=== PATIENT | male | born 1995 | race Two or more races ===

== ENCOUNTER 2018-05-11 20:30 | Inpatient (IN) | payer OTHER ==
[2018-05-11] VITALS: BP 125/74
[~2018-05-11] VITALS: Ht 165.1 cm; Wt 73.9 kg
--- NOTE | 2018-05-11 20:30 | NUR ---
PT BBRA FROM SNF FOR COFFEE GROUND EMESIS, TEMP OF 101.5, SOB, TACHYCARDIA.. PT AOX0, NON-VERBAL, VENT DEPENDENT, GT PATENT AND INTACT, F/C IN PLACE, PT CONTRACTED, PT ON MONITOR. MD AT BEDSIDE
[2018-05-11 20:56] VITALS: BP 118/35
[2018-05-11 21:06] LABS: BASOPHILS # (AUTO) 0.1 /CMM (0.0-0.2); BASOPHILS % (AUTO) 0.3 % (0.0-2.0); HEMATOCRIT 31 % (39-51); HEMOGLOBIN 10.4 g/dL (13.5-17.5); LYMPHOCYTES # (AUTO) 1.1 /CMM (0.8-4.8); LYMPHOCYTES % (AUTO) 5.9 % (20.0-44.0); MEAN CORPUSCULAR HGB CONC 33 g/dl (31.0-36.0); MEAN CORPUSCULAR VOLUME 91 fL (80-96); MONOCYTES # (AUTO) 1.3 /CMM (0.1-1.30); MONOCYTES % (AUTO) 7.1 % (2.0-12.0); NEUTROPHILS # (AUTO) 14.9 /CMM (1.8-8.9); NEUTROPHILS % (AUTO) 82.7 % (43.0-81.0); PLATELET COUNT (AUTO) 664 /CMM (150-450)
[2018-05-11 21:19] LABS: CALCIUM, SERUM 9.8 mg/dL (8.5-10.1); CARBON DIOXIDE 27 mmol/L (21-32); CHLORIDE 104 mmol/L (98-107); CREATININE 0.7 mg/dL (0.6-1.3); GLUCOSE 103 mg/dL (74-106); POTASSIUM 3.7 mmol/L (3.5-5.1); SODIUM SERUM 142 mmol/L (136-145); UREA NITROGEN, BLOOD 17 mg/dL (7-18)
[2018-05-11 21:30] LABS: ALANINE AMINOTRANSFERASE 60 U/L (12-78); ALBUMIN 3.4 g/dL (3.4-5.0); ALKALINE PHOSPHATASE 111 U/L (46-116); ASPARTATE AMINOTRANSFERASE 31 U/L (15-37); BILIRUBIN,DIRECT 0.1 mg/dL (0.0-0.2); BILIRUBIN,TOTAL 0.3 mg/dL (0.2-1.0); TOTAL PROTEIN, SERUM 8.5 g/dL (6.4-8.2)
--- NOTE | 2018-05-11 21:30 | NUR ---
URINE COLLECTED ADND SENT TO LAB
[2018-05-11 21:34] LABS: BILIRUBIN,URINE Negative (NEGATIVE); BLOOD, URINE Small Ery/uL (NEGATIVE); COLOR,URINE Yellow (YELLOW); KETONES,URINE Negative (NEGATIVE); LEUKOCYTE ESTERASE ,URINE Moderate (NEGATIVE); NITRITE, URINE Positive (NEGATIVE); PH,URINE 8.5 (5.0-8.0); PROTEIN,URINE 30 mg/dl (NEGATIVE); UGLUCOSE Negative (NEGATIVE); UROBILINOGEN,URINE 0.2 EU/dL (0.2)
[2018-05-11 21:35] LABS: APPEARANCE,URINE SLIGHTLY CLOUDY (CLEAR)
[2018-05-11] MEDS ORDERED: CEFTRIAXONE 1GM BAG (ER ONLY) 50 ML IV ONE ×2 (21:41→22:00)
--- NOTE | 2018-05-11 21:48 | NUR ---
DR PASCAL WAS PAGED
[2018-05-11 21:49] LABS: BACTERIA,URINE Many /HPF (None Seen); SQUAMOUS EPITHELIAL CELL,UR Few /HPF (None Seen)
[2018-05-11] MEDS ORDERED: IV NS 0.9% 1,000 ML BAG IV ONE ×2 (22:00→23:00)
--- NOTE | 2018-05-11 22:07 | NUR ---
ADMIT 102 VEENA DX GI BLEED ACCEPTED NAIDA RASCON
[2018-05-11 22:14] LABS: BAND % (MANUAL) 2 % (0.0-5.0); EOSINOPHILS % (MANUAL) 3 % (0-4); LYMPHOCYTES % (MANUAL) 5 % (16-48); MONOCYTES % (MANUAL) 5 % (0-11.0); NEUTROPHILS % (MANUAL) 85 (42-76)
[2018-05-11] MEDS ORDERED: LEVE500T9 GT (22:22)
[2018-05-11] MEDS ORDERED: TIZA4TAB11 GT (22:22)
[2018-05-11] MEDS ORDERED: HYDR-4354 PO (22:22)
[2018-05-11] MEDS ORDERED: BACL10TA GT (22:22)
[2018-05-11] MEDS ORDERED: TOPI50TA GT (22:22)
[2018-05-11] MEDS ORDERED: DOCU50LI PO (22:22)
[2018-05-11] MEDS ORDERED: RIVA10TA GT (22:22)
[2018-05-11] MEDS ORDERED: METO50TA16 GT (22:22)
[2018-05-11] MEDS ORDERED: FERR220S18 GT (22:22)
[2018-05-11] MEDS ORDERED: LACT250L14 GT (22:22)
[2018-05-11] MEDS ORDERED: SENN-168 GT (22:22)
--- NOTE | 2018-05-11 22:48 | NUR ---
REPORT GIVEN TO GILMER CHADWICK FOR TWIN
--- NOTE | 2018-05-11 22:58 | NUR ---
VEENA RN NOTE PATIENT RECEIVED FROM ER IN [facility] OBTUNDED. PATIENT ON BAG, TRANSFERRED TO VENT ON PRESCRIBED VENT SETTINGS. PATIENT HAS 20 G IV IN R FOOT RUNNING IV BOLUS FROM ER. BODY CHECK DONE, PATIENT HAS SACRAL WOUND, SKIN TEAR UNDER THE NECK, SCARS ON THE POSTERIOR SIDES OF BLE, AND REDNESS AT GTUBE AND TRACH SITE. PATIENT BATHED AND CLEANED. PATIENT FEBRILE RECTAL TYLENOL GIVEN PER ORDER, PATIENT VOMMITTED 400 ML OF COFFEE GROUND EMESIS. ZOFRAN AND PROTONIX GIVEN ORDERED. PATIENT HOB HIGH ON ASPIRATION PRECAUTIONS. TOLERATING VENT SETTINGS. RN WILL CONTINUE TO MONITOR.
--- NOTE | 2018-05-11 23:20 | NUR ---
VEENA RN NOTE MD PASCAL PAGED, PATIENT REMAINED FEBRILE AND TACHY IN THE 140'S. COOLING MEASURES TAKEN, ICE PACKS APPLIED.
--- NOTE | 2018-05-11 23:28 | NUR ---
TRANSFERRED TO 1ST FLOOR VIA ACLS PROTOCOL
--- NOTE | 2018-05-11 23:40 | NUR ---
VEENA RN NOTE PAGED [facility], NO RESPONSE PATIENT STILL FEBRILE AND TACKY TEMP 101.8. HR IN THE 140'S.
[2018-05-11 23:52] VITALS: BP_DIAS 35
[2018-05-12] VITALS (54 sets, daily range): BP systolic 97–137; BP diastolic 35–98
--- NOTE | 2018-05-12 | NUR ---
VEENA RN NOTE EPIC NOTIFIED PENDING ORDERS
--- NOTE | 2018-05-12 00:13 | NUR ---
[facility] RN NOTE [facility] ORDERED 500 BOLUS IV NS, 1 GRAM MERREM, AND 1 GRAM VANCO.
[2018-05-12] MEDS ORDERED: PANTOPRAZOLE 40 MG VIAL IV SCH (01:00)
[2018-05-12] MEDS: ACETAMINOPHEN 650 MG/SUPP.RECT RC PRN ×3 (01:47→23:35)
[2018-05-12] MEDS ORDERED: CEFTRIAXONE 1 G in IV D5W 50 ML IV SCH (02:30)
[2018-05-12] MEDS ORDERED: LORAZEPAM INJ 2 MG/ML VIAL IV PRN (02:30)
[2018-05-12] MEDS ORDERED: MORPHINE SULFATE INJ 2 MG/ML DISP.SYRIN IM PRN (02:30)
[2018-05-12] MEDS ORDERED: PANTOPRAZOLE 80 MG in IV NS 0.9% 500 ML IV PRN (03:00)
[2018-05-12] MEDS ORDERED: VANCOMYCIN 1 GM in IV D5W 250 ML IV SCH (03:00)
--- NOTE | 2018-05-12 03:00 | NUR ---
VEENA RN NOTE PATIENT HR RATE JUMPED TO 160'S, PATIENT HAVING MULTIPLE EPISODES OF COFFEE GROUND EMISIS, AT LEAST 300 ML. MD PASCAL CALLED, ORDERED TRANSFER TO ICU, PROTONIX DRIP, AND STAT H/H. REPORT GIVEN TO CLAUDIA FOR TWIN.
--- NOTE | 2018-05-12 03:22 | NUR ---
PT TRANSFERRED TO ICU.
[2018-05-12] MEDS: IV D5/ 0.9% NACL 1,000 ML IV PRN ×4 (03:57→19:56)
[2018-05-12] MEDS ORDERED: PANTOPRAZOLE 40 MG VIAL ONE (04:35)
[2018-05-12] MEDS ORDERED: VANCOMYCIN 1 GM VIAL ONE (04:49)
[2018-05-12 04:52] LABS: BASOPHILS % (AUTO) 0.1 % (0.0-2.0); HEMATOCRIT 31 % (39-51); HEMOGLOBIN 10.2 g/dL (13.5-17.5); LYMPHOCYTES # (AUTO) 0.4 /CMM (0.8-4.8); MEAN CORPUSCULAR HGB CONC 33 g/dl (31.0-36.0); MEAN CORPUSCULAR VOLUME 92 fL (80-96); MONOCYTES # (AUTO) 1.1 /CMM (0.1-1.30); MONOCYTES % (AUTO) 5.8 % (2.0-12.0); NEUTROPHILS # (AUTO) 17.3 /CMM (1.8-8.9); NEUTROPHILS % (AUTO) 92.1 % (43.0-81.0); PLATELET COUNT (AUTO) 588 /CMM (150-450); RED BLOOD CELL COUNT(AUTO) 3.35 MIL/uL (4.5-6.0); WHITE BLOOD COUNT (AUTO) 18.9 K/uL (4.3-11.0)
[2018-05-12 04:59] LABS: CALCIUM, SERUM 9.2 mg/dL (8.5-10.1); CREATININE 0.8 mg/dL (0.6-1.3); MAGNESIUM 2.2 mg/dL (1.8-2.4); POTASSIUM 3.4 mmol/L (3.5-5.1)
[2018-05-12] MEDS ORDERED: MEROPENEM 1 G in IV NS 0.9% 100 ML IV SCH (05:00)
[2018-05-12] MEDS ORDERED: MEROPENEM 1 G VIAL IV ONE (05:35)
[2018-05-12] MEDS: MORPHINE SULFATE INJ 4 MG/ML DISP.SYRIN IV PRN (05:38)
[2018-05-12] MEDS ORDERED: POTASSIUM CHLORIDE 10 MEQ/50 ML PREMIXED IVPB FOR PERIPHERAL LINE IV ONE (06:00)
--- NOTE | 2018-05-12 06:01 | NUR ---
MD PASCAL AT BEDSIDE, AWARE OF AM LAB RESULTS, K LEVEL 3.4, WITH NEW ORDER TO REPLACE POTASSIUM 20 MEQ IV X1 .
[2018-05-12] MEDS ORDERED: LEVETIRACETAM (500MG) 500 MG in IV NS 0.9% 100 ML IV SCH (06:30)
--- NOTE | 2018-05-12 07:15 | NUR ---
RN INITIAL NOTES: Rec'd pt on bed, awake, not in any distress. On MV via trach, sating at 98%. On telemonitor, ST 128 bpm. Has GT connected to LIS w/ coffee ground gastric output. Has 2 IV lines, R ft G20 & L ft G22 w/ D5NS x 100 cc/hr & Protonix Drip 8mg infusing well, no s/sx of infection/infiltration noted. Has FC, no UOP noted. Cooling blanket on d/t high temp. Safety precaution in. Bed in lowest & locked pos. Will endorse to PM RN for TWIN.
[2018-05-12] MEDS: POTASSIUM CL. PREMIX PERIPHER. 50 ML IV SCH ×2 (07:36→08:37)
--- NOTE | 2018-05-12 07:46 | NUR ---
Clarified w/ Dr. Ybarra re: Fany. Per , to DC IV Abx.
[2018-05-12] MEDS ORDERED: FEE PK DOSING 1 MIN EA MC ONE (07:52)
--- NOTE | 2018-05-12 08:04 | NUR ---
Temp 101.3, referred to Dr. Ybarra w/ orders to do sputum cx.
--- NOTE | 2018-05-12 09:17 | NUR ---
Pt seen & examined by Dr. Warren w/ orders to give STAT of 1L NS [id number] then increase current IVF to 200 cc/hr after giving the NS.
[2018-05-12] MEDS ORDERED: IV NS 0.9% 1,000 ML BAG IV ONE (09:30)
[2018-05-12] MEDS: LEVETIRACETAM (500MG) 500 MG in IV NS 0.9% 100 ML IV SCH ×2 (09:44→19:56)
[2018-05-12] MEDS ORDERED: IV NS 0.9% 1,000 ML IV PRN (10:00)
[2018-05-12 11:43] LABS: ABG BASE EXCESS -1.1 mmol/L; ABG OXYGEN SATURATION 96.9 % (92.0-98.5); ABG PCO2 30.6 mmHg (35.0-45.0); ABG PH 7.468 (7.350-7.450); COHb 0.2 % (0.5-1.5); MetHb 0.7 % (0.0-1.5); PEEP,BG 5 cm H2O; SITE, ABG Right Brachial; VT, ABG 550 mL
--- NOTE | 2018-05-12 12:00 | NUR ---
KELSEA relayed to Dr. Warren w/ orders to decrease TV by 50 cc.
--- NOTE | 2018-05-12 13:00 | NUR ---
Dr. Calle seen & examined the pt. updated about pt status. Per MD, may start GTF per RD recommendation. Monitor for any gastric residuals.
[2018-05-12] MEDS: MEROPENEM 1 G in IV NS 0.9% 100 ML IV SCH ×2 (13:14→21:00)
--- NOTE | 2018-05-12 14:04 | NUR ---
Jose POLITICAL ANTHROPOLOGIST updated about pt status. Pt is possible for skin scabies per POLITICAL ANTHROPOLOGIST.
[2018-05-12] MEDS ORDERED: IVERMECTIN 3 MG TABLET PO ONE (14:30)
[2018-05-12] MEDS ORDERED: PERMETHRIN 5% CRM 60 GM TUBE TP ONE (14:30)
--- NOTE | 2018-05-12 15:30 | NUR ---
Dr. Warren updated about urine output, per MD infuse total 2L of D5NS at 200cc/hr then decrease rate to 150cc/hr after 2L infusion.
[2018-05-12] MEDS: ACETAMINOPHEN 325 MG TABLET PO PRN (16:18)
[2018-05-12] MEDS: PANTOPRAZOLE 40 MG VIAL IV SCH (16:18)
[2018-05-12] MEDS: VANCOMYCIN 1 GM in IV D5W 250 ML IV SCH (16:18)
[2018-05-12] MEDS: DAKINS QUARTER STRENGTH (0.125%) 480 ML BOTTLE TOP SCH ×2 (17:30→21:30)
--- NOTE | 2018-05-12 18:57 | NUR ---
RN CLOSING NOTES: Pt still has high fever T 100. Pt tolerated MV settings (new TV 500) via trach, sating at 98%. On telemonitor, still ST. GT clamped at this time, to start GTF. 2 IV lines, R ft G20 & L ft G22 w/ D5NS x 200 cc/hr infusing well w/ no s/sx of infection/infiltration noted. FC kept patent & intact. Cooling blanket kept on d/t high temp. Safety precaution kept in place at all times. Bed in lowest & locked pos. Isolation prec observed for poss scabies. Endorsed to PM RN re: 2nd bag of D5NS x 200cc/hr then decrease rate to 150cc/hr, to start GTF, & give bath 8 hours s/p Elimite cream application.
--- NOTE | 2018-05-12 19:30 | NUR ---
EPIC SPECIALIST RCD PT W/DX GI BLEED, SEPSIS; PT IS FULL CODE. ISOLATION PRECAUTIONS TO R/O SCABIES WITH ELIMITE CREME APPLIED AT 1350 AND BATH TO BE DONE AT 2330. PT IS OBTUNDED WITHDRAWS FROM PAIN. PORTEX 8 W/VENT SETTINGS AC 12 500 40% +5; PT HAS THICK WHITE SECRETIONS. RENDERED ORAL CARE. ST ON MONITOR W/TEMP 100.9; TYLENOL PREVIOUSLY GIVEN. G TUBE CLAMPED PER DAY SHIFT PT WAS HAVING HIGH RESIDUALS NO RESIDUAL AT THIS TIME WILL RESTART TUBE FEEDING ONCE IT IS AVAILABLE. ORTIZ CATH WITH NO URINE OUTPUT AT THIS TIME. MULTIPLE SKIN ISSUES; DRESSINGS C/D/I; REMOVED MEPILEX FROM SACRUM. RIGHT FOOT 20 G W/D5NS @ 200 ML/HR TO RUN x2 LITERS FOLLOWED BY D5NS@ 150 ML/HR; LEFT FOOT 22 G W/NS @ TKO RUNNING; ORDER PLACED AT THIS TIME IT WAS NOT DONE PRIOR TO ADMINISTERING IT. CONTINUE TO MONITOR.
[2018-05-12] MEDS ORDERED: IV NS 0.9% 250 ML IV PRN (20:00)
[2018-05-12] MEDS: JEVITY 1.2 CAL 1,000 ML BOTTLE GT PRN (21:00)
--- NOTE | 2018-05-12 21:30 | NUR ---
SENIOR RESEARCH ANALYST RENDERED WOUND TREATMENT AT THIS TIME. REMOVED MEPILEX FROM SACRAL AREA; APPLIED ABD PADS. APPLIED MEPILEX TO BL ELBOWS; OFFLOADED. APPLIED XEROFORM AND MEPILEX TO LEFT NECK. NOT PREVIOUSLY DONE.
[2018-05-13] VITALS (27 sets, daily range): BP systolic 106–147; BP diastolic 44–126
[2018-05-13] MEDS: MORPHINE SULFATE INJ 4 MG/ML DISP.SYRIN IV PRN (00:26)
--- NOTE | 2018-05-13 00:30 | NUR ---
OUTPATIENT SERVICES DIRECTOR COMPLETE BED BATH RENDERED TO PT; PT GIVEN TYLENOL SUPP FOR TEMP 100.3; PT ALSO GIVEN MORPHINE 2 MG IV FOR GRIMACING AND INCREASED HR DURING BED BATH. CONTINUE TO MONITOR.
--- NOTE | 2018-05-13 01:00 | NUR ---
MACHINE WELDER 2 L D5NS @ 200 ML/HR ADMINISTERED; RATE AT 150 ML/HR AT THIS TIME.
[2018-05-13] MEDS: IV D5/ 0.9% NACL 1,000 ML IV PRN ×3 (01:01→16:50)
--- NOTE | 2018-05-13 02:44 | NUR ---
JOINTER MACHINE OPERATOR PT RESTING COMFORTABLY HR NSR 90s; CORE TEMP 98.4. CONTINUE TO MONITOR.
[2018-05-13] MEDS: VANCOMYCIN 1 GM in IV D5W 250 ML IV SCH ×2 (04:00→18:08)
[2018-05-13 04:34] LABS: CALCIUM, SERUM 8.3 mg/dL (8.5-10.1); CREATININE 0.5 mg/dL (0.6-1.3)
[2018-05-13] MEDS: MEROPENEM 1 G in IV NS 0.9% 100 ML IV SCH ×3 (05:00→20:04)
--- NOTE | 2018-05-13 07:47 | NUR ---
FEATHER SAWYER INITIAL NOTES: RECEIVED PT FROM NIGHTSHIFT RN IN STABLE CONDITION. PT IS OBTUNDED, OPENS EYES SPONTANEOUSLY AND IS RESPONSIVE TO PAIN FUL STIMULI. NO SOB OR ACUTE SIGNS OF DISTRESS NOTED. PT TRACH AND VENT DEPENDENT. VENT SETTINGS CHECKED FOR ACCURACY. PT TOLERATING SETTINGS WELL (PORTEX 7, AC 12BPM, TV 500, FI02 40%, PEEP 5). ORTIZ CATHETER NOTED TO BE PATENT AND INTACT. NO OUTPUT NOTED AT THIS TIME. IVS NOTED TO PT'S RIGHT AND LEFT FOOT. LEFT FOOT 22G CURRENTLY INFUSING MERREM, AND RIGHT FOOT 20G CURRENTLY INFUSING D2 NS @ 150ML/HR. PT TOLERATING INFUSION WELL. NO REDNESS OR SIGNS OF INFILTRATION NOTED. GTUBE NOTED. PLACEMENT VERIFIED VIA AUSCULTATION. LESS THAN 5ML OF RESIDUALS ASPIRATED AT THIS TIME. TUB FEEDING RATE INCREASED TO 25 CC/HR. PT TOLERATING FEEDINGS WELL. NO REPORTS OF EMESIS FROM NIGHTSHIFT RN. WOUND DRESSINGS NOTED TO BE C/D/I. PT CURRENT SINUS TACH ON THE MONITOR WITH A HR OF 109. CURRENT TEMP OF 98.9 F. BED IN LOW LOCKED POSITION, SIDE RAILS UP X2, CALL LIGHT WITHIN REACH, SEIZURE PRECAUTIONS INITIATED, ISOLATION PRECAUTION MAINTAINED. WILL CONTINUE TO MONITOR
--- NOTE | 2018-05-13 08:04 | NUR ---
RT PATIENT REC'D TRACHED ON [facility] VENT WITH ORDERED SETTINGS ANIKA WELL. VENT ALARMS CHECKED + AUDIBLE. CUFF PRESSURE CHECKED DOCUMENT SCANNER. PATIENT SUCTIONED WITH MOD TOSINT OF PENELOPE SEMITHICK SECRETIONS. B/S DIM COARSE. [facility]. VENT PLUGGED ONTO RED OUTLET. Addendum: 05/13/18 at 1052 by WM HENDERSON RT Amended: Links added.
[2018-05-13] MEDS: LEVETIRACETAM (500MG) 500 MG in IV NS 0.9% 100 ML IV SCH ×2 (08:05→20:04)
[2018-05-13] MEDS: LORATADINE 10 MG TABLET PO SCH (08:05)
[2018-05-13] MEDS: PANTOPRAZOLE 40 MG VIAL IV SCH ×2 (08:10→16:54)
[2018-05-13] MEDS: DAKINS QUARTER STRENGTH (0.125%) 480 ML BOTTLE TOP SCH ×2 (08:30→20:05)
[2018-05-13 09:53] LABS: BASOPHILS % (AUTO) 0.2 % (0.0-2.0); EOSINOPHILS % (AUTO) 7.2 % (0.0-6.0); HEMATOCRIT 22 % (39-51); HEMOGLOBIN 7.2 g/dL (13.5-17.5); LYMPHOCYTES % (AUTO) 8.3 % (20.0-44.0); MEAN CORPUSCULAR HGB CONC 33 g/dl (31.0-36.0); MEAN CORPUSCULAR VOLUME 93 fL (80-96); MONOCYTES # (AUTO) 0.8 /CMM (0.1-1.30); MONOCYTES % (AUTO) 7.1 % (2.0-12.0); NEUTROPHILS # (AUTO) 8.9 /CMM (1.8-8.9); NEUTROPHILS % (AUTO) 77.2 % (43.0-81.0); PLATELET COUNT (AUTO) 406 /CMM (150-450); RED BLOOD CELL COUNT(AUTO) 2.37 MIL/uL (4.5-6.0); WHITE BLOOD COUNT (AUTO) 11.5 K/uL (4.3-11.0)
--- NOTE | 2018-05-13 10:21 | NUR ---
WOUND CARE CONSULT WOUND CARE RECEIVED CONSULT FOR SACRAL WOUND. WOUND CARE WILL DEFER CONSULT AND ALL TREATMENT PLANS TO PLASTIC SURGICAL TEAM WELL DPM DR SOLOMON WHO ARE ALL FOLLOWING THIS PATIENT. PATIENT WITH EBONI AT 7, ALL PRESSURE ULCER PREVENTION MEASURES ARE NOTED TO BE IN PLACE. WILL SEE PRN.
--- NOTE | 2018-05-13 11:03 | NUR ---
AERIAL PHOTOGRAPHER NOTES: DR HAMMOND ORDERS DR. HAMMOND MADE AWARE OF PT'S H/H. VERBAL ORDER OBTAINED BY MD TO REPEAT H/H Q8HRS AND TRANSFUSE 1UNIT PRBC IF HGG <7 AND TWO UNITS IN HGB IS <6
[2018-05-13] MEDS: POTASSIUM CHLORIDE 20 MEQ POWDER PACKET GT SCH ×3 (11:33→12:45)
[2018-05-13] MEDS: Z GUARD REMEDY 2 OZ OINT TP SCH (11:33)
--- NOTE | 2018-05-13 12:30 | NUR ---
SPECIAL EDUCATION AIDE NOTES: MD ROUNDING (DR. PASCAL) DR PASCAL AT BEDSIDE AND MADE AWARE OF PT'S CONDITION. PER MD "PT CAN BE DOWNGRADED IF APPROVED BY DR HAMMOND". DR HAMMOND MADE AWARE AND STATES THAT PT MAY BE DOWNGRADED TO V[facility]NA ONCE H/H IS OBTAINED AT 1300. WILL CARRY OUT ORDERS
[2018-05-13 13:19] LABS: HEMOGLOBIN 7.8 g/dL (13.5-17.5)
[2018-05-13 16:41] LABS: HEMOGLOBIN 8.3 g/dL (13.5-17.5)
--- NOTE | 2018-05-13 17:45 | NUR ---
PT TRANSFERRED TO [facility] ROOM 108 VIA ACLS TRANSPORT. ALL NEED MET DURING SHIFT AND ORDERS CARRIED OUT ACCORDINGLY. ALL DUE MEDS GIVEN. WOUND AND SKIN CARE RENDERED ORDERED. PT REPOSITIONED AND TURNED Q2 HRS. IVS REMAIN PATENT AND INTACT. PT TOLERATED GTUBE FEEDINGS WELL DURING SHIFT. ENDORSE TO VEENA FARRUKH HARPER FOR TWIN AND ADMINISTRATION OF 1700 VANCO THROUGHOUT LEVEL WAS NOT YET RESULTED
--- NOTE | 2018-05-13 19:07 | NUR ---
VEENA RN NOTES RECEIVED PATIENT FROM ICU. BP 113/60, HR 109, SPO2 100% ON VENT, RR 30, TEMP 99.1. VENT TUBES PATENT AND FUNCTIONING EXPECTED. IV INTACT, PATENT W/ NO S/S OF INFECTION. G-TUBE INTACT AND PATENT. IV VANCOMYCIN RUNNING. PATIENT REPOSITIONED AND HEELS FLOATED. ORTIZ IN PLACE AND DRAINING URINE. PATIENT CLEAN AND DRY, ALL SAFETY MEASURES IN PLACE. CARE HANDED OFF TO NIGHTSHIFT RN.
--- NOTE | 2018-05-13 19:35 | NUR ---
PATIENT RECEIVED ON AC @ 40%. PORTEX [address] AMBU BAG/BACK UP TRACH @ BEDSIDE. SX DONE, MODERATE THICK WHITE YELLOW SECRETIONS NOTED. ALARMS ON AND AUDIBLE. VENT PLUGGED INTO RED OUTLET. PATIENT STABLE AT THIS TIME. WILL MONITOR T/O SHIFT. Addendum: 05/13/18 at 1936 by JAIRO KOO RT Amended: Links added.
[2018-05-13] MEDS: MUPIROCIN OINT 2% 22 GM TUBE SCH (20:05)
[2018-05-13] MEDS: ACETAMINOPHEN 325 MG TABLET PO PRN (20:06)
[2018-05-13] MEDS: LORAZEPAM INJ 2 MG/ML VIAL IV PRN (20:11)
--- NOTE | 2018-05-13 20:11 | NUR ---
RN NOTE AGITATION NOTED, INCREASED RESPIRATIONS, ADMINISTERED MEDICATION ORDERED
[2018-05-13] MEDS ORDERED: MUPIROCIN OINT 2% 22 GM TUBE SCH (21:00)
[2018-05-14] VITALS: BP 104/55
[2018-05-14] MEDS: ONDANSETRON HCL/PF 4 MG/2 ML VIAL IV PRN (01:43)
[2018-05-14] MEDS: LORAZEPAM INJ 2 MG/ML VIAL IV PRN (01:52)
--- NOTE | 2018-05-14 01:52 | NUR ---
RN NOTE PATIENT IS AGITATED, MEDICATION ADMINISTERED ORDERED
[2018-05-14 04:00] VITALS: BP 119/58
[2018-05-14] MEDS: VANCOMYCIN 1 GM in IV D5W 250 ML IV SCH (04:00)
[2018-05-14] MEDS: MEROPENEM 1 G in IV NS 0.9% 100 ML IV SCH ×2 (04:00→13:16)
[2018-05-14] MEDS: IV D5/ 0.9% NACL 1,000 ML IV PRN (04:19)
--- NOTE | 2018-05-14 06:27 | NUR ---
RN NOTE PATIENT RESTED WELL AT NIGHT, NO AGITATION OR DISCOMFORT NOTED AT THIS TIME, AFEBRILE, TOLERATES MECH. VENTILATOR SETTING WELL, TURNED AND REPOSITION EVERY 2 HOURS, WOUND CARE PROVIDED ORDERED, NO RESPIRATORY DISTRESS NOTED, SEIZURE PRECAUTIONS TAKEN, NO BLEEDING NOTED, OBTUNDED, TOLERATES IV FLUIDS WELL, WILL PROVIDE BEDSIDE REPORT TO AM NURSE
[2018-05-14 07:28] LABS: BASOPHILS % (AUTO) 0.4 % (0.0-2.0); EOSINOPHILS % (AUTO) 15.6 % (0.0-6.0); HEMATOCRIT 25 % (39-51); HEMOGLOBIN 8.2 g/dL (13.5-17.5); LYMPHOCYTES # (AUTO) 1.1 /CMM (0.8-4.8); LYMPHOCYTES % (AUTO) 10.4 % (20.0-44.0); MEAN CORPUSCULAR HGB CONC 33 g/dl (31.0-36.0); MEAN CORPUSCULAR VOLUME 95 fL (80-96); MONOCYTES # (AUTO) 0.8 /CMM (0.1-1.30); MONOCYTES % (AUTO) 7.6 % (2.0-12.0); PLATELET COUNT (AUTO) 467 /CMM (150-450); RED BLOOD CELL COUNT(AUTO) 2.66 MIL/uL (4.5-6.0); WHITE BLOOD COUNT (AUTO) 10.7 K/uL (4.3-11.0)
[2018-05-14 07:33] LABS: CALCIUM, SERUM 8.4 mg/dL (8.5-10.1); CREATININE 0.5 mg/dL (0.6-1.3); MAGNESIUM 1.9 mg/dL (1.8-2.4); POTASSIUM 3.1 mmol/L (3.5-5.1)
[2018-05-14 08:00] VITALS: BP 124/68
--- NOTE | 2018-05-14 08:15 | NUR ---
VEENA RN SHIFT NOTE RECEIVED PATIENT IN BED EYES OPEN NOT FOLLOW ANY COMMANDS, OBTUNED WITH TRACH TO VENT SETTING ORDERED, AMBUBAG IN PLACE, PATIENT HAS FC TO GRAVITY TO YELLOW CLEAR URINE, PATIENT ON TELE MONITOR 108 SINUS TACHY, GTUBE FEEDING AT 40CC PER HOUR, HOB ELEVATED, IV ON RT AND LFT FOOT IN PLACE FLUSHED WELL, IVF ORDERED, BED LOCKED AND LOW POSITION, ISOLATION PER HOSPITAL PROTOCAL
[2018-05-14] MEDS ORDERED: LEVETIRACETAM (250 MG) 250 MG TABLET PO SCH (09:00)
[2018-05-14] MEDS: PANTOPRAZOLE 40 MG VIAL IV SCH ×2 (09:03→16:40)
[2018-05-14] MEDS: LORATADINE 10 MG TABLET PO SCH (09:03)
[2018-05-14] MEDS: DAKINS QUARTER STRENGTH (0.125%) 480 ML BOTTLE TOP SCH ×2 (09:05→20:46)
[2018-05-14] MEDS: MUPIROCIN OINT 2% 22 GM TUBE SCH ×2 (09:05→20:49)
[2018-05-14] MEDS: Z GUARD REMEDY 2 OZ OINT TP SCH (09:05)
[2018-05-14] MEDS ORDERED: POTASSIUM CHLORIDE 20 MEQ POWDER PACKET GT SCH (10:00)
--- NOTE | 2018-05-14 10:06 | NUR ---
RN NOTE: CLARIFIED WITH DR. HAMMOND RE: THE DAILY ORDERS FOR ABG AND CHEST X-RAY. PER MENDY RASCON ALL ORDERS, NOTED AND CARRIED OUT. PRIMARY NURSE MADE AWARE.
[2018-05-14] MEDS ORDERED: HYDROMORPHONE INJ 0.5 MG/0.5 ML SYRINGE IV PRN (10:30)
[2018-05-14] MEDS ORDERED: LEVETIRACETAM SOL (5 ML) 100 MG/ML UDC GT SCH (10:30)
--- NOTE | 2018-05-14 11:05 | NUR ---
RN NOTE DR HAMMOND , PATIENT IS EDEMATOUS, DECREASE IV FLUIDS 50ML HOUR, HEMOGLOBIN 8.2 CONTINUE TO MONITOR, D/C IF FLUIDS TOMORROW 05/15
[2018-05-14] MEDS: BACLOFEN (10 MG) 10 MG TABLET GT SCH ×2 (11:18→17:03)
[2018-05-14] MEDS: TOPIRAMATE 25 MG TABLET GT SCH ×2 (11:19→20:45)
[2018-05-14 12:00] VITALS: BP 116/61
--- NOTE | 2018-05-14 12:36 | NUR ---
RN VEENA NOTE MIDLINE DR TRINIDAD APPROVED, NURSING POSITION DESCRIPTION MANAGER APPROVED.
[2018-05-14] MEDS ORDERED: VANCOMYCIN 1 GM in IV D5W 250 ML IV SCH (13:00)
[2018-05-14] MEDS: JEVITY 1.2 CAL 1,000 ML BOTTLE GT PRN (13:20)
--- NOTE | 2018-05-14 13:50 | NUR ---
fely rn note rt upper arm midline inserted by Picc line nurse ajay
[2018-05-14] MEDS: SOD FERRIC GLUC 125 MG in IV NS 0.9% 100 ML IV SCH (15:06)
--- NOTE | 2018-05-14 15:47 | NUR ---
LITHOGRAPHIC PLATE MAKER NOTE ROUNDS MADE, RESTING COMFORTABLE, ASSISTED TO URINAL, URINATED WELL, MONITOR PATIENT Addendum: 05/14/18 at 1548 by SCOTTIE SANFORD RN UA COLLECTED ORDERED Addendum: 05/14/18 at 1549 by SCOTTIE SANFORD RN WRONG PATIENT
--- NOTE | 2018-05-14 15:50 | NUR ---
VEENA RN NOTE IV ON CONTINUED ATB, INCREASED TUBE FEEDING TO 45ML/HR, MAX DOSE 65. WILL CONTINUE TO MONITOR, NO RESIDUAL NOTED
[2018-05-14 16:00] VITALS: BP 111/59
[2018-05-14] MEDS: DOCUSATE SODIUM LIQ 100 MG/10 ML UDC PO SCH (16:39)
[2018-05-14] MEDS: PROSOURCE / PROSTAT (PYXIS) 30 ML UDC GT SCH (16:40)
[2018-05-14] MEDS: METOPROLOL TARTRATE 25 MG TABLET GT SCH (16:40)
[2018-05-14] MEDS: TIZANIDINE HCL 4 MG TABLET GT SCH (16:41)
--- NOTE | 2018-05-14 18:47 | NUR ---
VEENA RN NOTE CONT ON G TUBE FEEDING ORDERED, ON IVF ORDERED ,RT UPPER ARM MID LINE IN PLACE, BED IN LOWEST AND LOCKED POSITION, FAMILY AT BEDSIDE , CONTINUE TO MONITOR
[2018-05-14 20:00] VITALS: BP 107/60
[2018-05-14] MEDS: LEVETIRACETAM SOL (5 ML) 100 MG/ML UDC GT SCH (20:45)
[2018-05-14] MEDS: DOXYCYCLINE HYCLATE (100 MG) 100 MG TABLET PO SCH (20:45)
[2018-05-14] MEDS: HYDROCODONE/APAP 10/325MG 1 EA TABLET GT PRN (20:45)
[2018-05-14] MEDS: CEFTAZIDIME 1 G in IV D5W 50 ML IV SCH (20:50)
[2018-05-14] MEDS: SENNOSIDES 8.6 MG TABLET GT SCH (21:46)
[2018-05-15] VITALS (7 sets, daily range): BP systolic 116–140; BP diastolic 68–101
[2018-05-15] MEDS: BACLOFEN (10 MG) 10 MG TABLET GT SCH ×4 (00:21→17:04)
[2018-05-15] MEDS: CEFTAZIDIME 1 G in IV D5W 50 ML IV SCH ×3 (05:03→20:11)
[2018-05-15] MEDS: HYDROCODONE/APAP 10/325MG 1 EA TABLET GT PRN (05:06)
[2018-05-15 06:40] LABS: CALCIUM, SERUM 8.3 mg/dL (8.5-10.1); CREATININE 0.4 mg/dL (0.6-1.3); POTASSIUM 3.9 mmol/L (3.5-5.1)
--- NOTE | 2018-05-15 07:00 | NUR ---
RN NOTES RECEIVED PT ON BED, OBTUNDED, VENT/TRACH DEPENDENT, TOLERATING CURRENT VENT SETTING WELL, ON TELE ST HR IN 110'S , ORTIZ DRAINING TO GRAVITY, JEVITY AT 65CC /HR RUNNING VIA GT TUBE, TOLERATING WELL, NO RESIDUAL NOTED, R UPPER ARM MIDLINE AND LEFT AND R FOOT IV SITES , CLEAN ,DRY AND INTACT, SR UP x3, CALL LIGHT WITHIN EASY REACH, BED LOCKED AND IN LOWEST POSITION , CONTINUE TO MONITOR .
[2018-05-15 07:51] LABS: BASOPHILS % (AUTO) 0.3 % (0.0-2.0); EOSINOPHILS % (AUTO) 13.8 % (0.0-6.0); HEMATOCRIT 26 % (39-51); HEMOGLOBIN 8.3 g/dL (13.5-17.5); LYMPHOCYTES # (AUTO) 1.2 /CMM (0.8-4.8); LYMPHOCYTES % (AUTO) 11.4 % (20.0-44.0); MEAN CORPUSCULAR HGB CONC 33 g/dl (31.0-36.0); MEAN CORPUSCULAR VOLUME 96 fL (80-96); MONOCYTES # (AUTO) 0.7 /CMM (0.1-1.30); MONOCYTES % (AUTO) 6.7 % (2.0-12.0); NEUTROPHILS # (AUTO) 7.4 /CMM (1.8-8.9); NEUTROPHILS % (AUTO) 67.8 % (43.0-81.0); PLATELET COUNT (AUTO) 397 /CMM (150-450); RED BLOOD CELL COUNT(AUTO) 2.67 MIL/uL (4.5-6.0); WHITE BLOOD COUNT (AUTO) 10.9 K/uL (4.3-11.0)
[2018-05-15] MEDS: DOXYCYCLINE HYCLATE (100 MG) 100 MG TABLET PO SCH ×2 (08:08→20:11)
[2018-05-15] MEDS: PANTOPRAZOLE 40 MG VIAL IV SCH (08:08)
[2018-05-15] MEDS: DOCUSATE SODIUM LIQ 100 MG/10 ML UDC PO SCH ×2 (08:08→16:42)
[2018-05-15] MEDS: LEVETIRACETAM SOL (5 ML) 100 MG/ML UDC GT SCH ×2 (08:08→20:11)
[2018-05-15] MEDS: TIZANIDINE HCL 4 MG TABLET GT SCH ×2 (08:09→16:43)
[2018-05-15] MEDS: TOPIRAMATE 25 MG TABLET GT SCH ×2 (08:09→20:11)
[2018-05-15] MEDS: LORATADINE 10 MG TABLET PO SCH (08:10)
[2018-05-15] MEDS: METOPROLOL TARTRATE 25 MG TABLET GT SCH ×2 (08:10→16:43)
[2018-05-15] MEDS: Z GUARD REMEDY 2 OZ OINT TP SCH (08:11)
[2018-05-15] MEDS: DAKINS QUARTER STRENGTH (0.125%) 480 ML BOTTLE TOP SCH ×2 (08:12→21:26)
[2018-05-15] MEDS: PROSOURCE / PROSTAT (PYXIS) 30 ML UDC GT SCH ×3 (08:13→16:43)
[2018-05-15] MEDS: MUPIROCIN OINT 2% 22 GM TUBE SCH ×2 (11:31→21:27)
--- NOTE | 2018-05-15 12:00 | NUR ---
RN NOTES PT STABLE, BM x1, TOLERATING TF WELL, NO RESIDUAL NOTED, CONTINUE TO MONITOR .
[2018-05-15] MEDS: JEVITY 1.2 CAL 1,000 ML BOTTLE GT PRN (12:12)
[2018-05-15] MEDS: ACETAMINOPHEN 325 MG TABLET PO PRN (12:18)
[2018-05-15] MEDS: SOD FERRIC GLUC 125 MG in IV NS 0.9% 100 ML IV SCH (14:47)
--- NOTE | 2018-05-15 18:27 | NUR ---
RN NOTES TRACH SUCTIONING DONE , NO SOB NOTED, NO SIGNIFICANT CHANGES NOTED ON THIS SHIFT, WILL ENDOSE TO COMBAT CONTROL NURSE FOR CONTINUITY OF CARE .
--- NOTE | 2018-05-15 19:24 | NUR ---
RT NOTE PT RECEIVED ON [facility] VENT ON THE FOLLOWING NOTED SETTINGS OF: AC 12, 500, 40%, +5. NO SOB OR RESP DISTRESS NOTED AT THIS TIME. VENT IS PLUGGED INTO RED OUTLET. ALARMS ARE ON AND AUDIBLE. AMBU BAG IS AT BEDSIDE. RN NOTIFIED TO ENTER VENT CHANGES THAT WERE MADE ON 05/12 FOR VT DECREASE FROM 550 TO 500. Addendum: 05/15/18 at 1926 by KEENA SULLIVAN RT Amended: Links added.
--- NOTE | 2018-05-15 20:05 | NUR ---
TD/RN INITIAL NOTES RECEIVED PT IN BED, OBTUNDED, WITH INTACT TRACH PORTEX#7, TOLERATING CURRENT VENT SETTINGS WELL, NO SOB NOTED, SPO2 WNL. SINUS TACHY HR ON 110S. GTUBE INTACT AND IN PLACED. WITH ONGOING GTF JEVITY AT 65 MLS/HR, TOLERATING WELL. HOB ELEVATED. WITH INTACT AND PATENT CAT MIDLINE AND LFOOT G22 HEPLOCK. F/C INTACT AND IN PLACED, DRAINING YELLOW COLOR URINE. SAFETY MEASURES AND ASPIRATION PRECAUTION IN PLACED. WILL CONT TO MONITOR
[2018-05-15] MEDS: SENNOSIDES 8.6 MG TABLET GT SCH (21:26)
[2018-05-16] VITALS: BP 140/101
[2018-05-16] MEDS: BACLOFEN (10 MG) 10 MG TABLET GT SCH ×4 (00:31→16:23)
[2018-05-16] MEDS: ACETAMINOPHEN 325 MG TABLET PO PRN ×3 (01:11→16:23)
[2018-05-16] MEDS: JEVITY 1.2 CAL 1,000 ML BOTTLE GT PRN (03:55)
[2018-05-16 04:00] VITALS: BP 136/77
[2018-05-16] MEDS: CEFTAZIDIME 1 G in IV D5W 50 ML IV SCH ×3 (05:15→21:04)
--- NOTE | 2018-05-16 07:01 | NUR ---
RN NOTES PT IN STABLE CONDITION. ALL NEEDS ANTICIPATED. SAFETY MEASURES OBSERVED AT ALL TIMES. ENDORSED TO AM SHIFT RN FOR TWIN
[2018-05-16 07:13] LABS: CALCIUM, SERUM 8.6 mg/dL (8.5-10.1); CREATININE 0.5 mg/dL (0.6-1.3); POTASSIUM 3.8 mmol/L (3.5-5.1)
[2018-05-16 08:00] VITALS: BP 122/95
--- NOTE | 2018-05-16 08:21 | NUR ---
VEENA RN NOTE RECEIVED PATIENT IN BED, NON-VERBAL, OBTUNDED, NO C/O PAIN OR DISCOMFORT, TRACH PORTEX 7, TV 500, 40%. SATURATING WELL, ST ON TELE, V/S WNL, GTUBE RUNNING W/ JEVITY 2 65 ML/HOUR, CAT MIDLINE #22 INTACT AND PATENT, BED IN LOW LOCKED POSITION, CALL LIGHT WITHIN REACH, SAFETY MEASURES IN PLACE. WILL CONTINUE TO MONITOR.
[2018-05-16] MEDS: LEVETIRACETAM SOL (5 ML) 100 MG/ML UDC GT SCH ×2 (08:42→21:04)
[2018-05-16] MEDS: DOCUSATE SODIUM LIQ 100 MG/10 ML UDC PO SCH ×2 (08:42→16:23)
[2018-05-16] MEDS: METOPROLOL TARTRATE 25 MG TABLET GT SCH ×2 (08:44→16:24)
[2018-05-16] MEDS: DOXYCYCLINE HYCLATE (100 MG) 100 MG TABLET PO SCH ×2 (08:44→21:04)
[2018-05-16] MEDS: TOPIRAMATE 25 MG TABLET GT SCH ×2 (08:45→21:04)
[2018-05-16] MEDS: TIZANIDINE HCL 4 MG TABLET GT SCH ×2 (08:45→16:23)
[2018-05-16] MEDS: LORATADINE 10 MG TABLET PO SCH (08:45)
[2018-05-16] MEDS: PROSOURCE / PROSTAT (PYXIS) 30 ML UDC GT SCH ×3 (08:46→16:24)
[2018-05-16] MEDS: MUPIROCIN OINT 2% 22 GM TUBE SCH ×2 (08:47→21:05)
[2018-05-16] MEDS: DAKINS QUARTER STRENGTH (0.125%) 480 ML BOTTLE TOP SCH ×2 (08:48→21:05)
[2018-05-16] MEDS: Z GUARD REMEDY 2 OZ OINT TP SCH (08:48)
[2018-05-16 12:00] VITALS: BP 140/74
[2018-05-16 16:00] VITALS: BP 126/74
[2018-05-16] MEDS: SOD FERRIC GLUC 125 MG in IV NS 0.9% 100 ML IV SCH (16:23)
[2018-05-16 18:34] LABS: HEMOGLOBIN 9.3 g/dL (13.5-17.5)
--- NOTE | 2018-05-16 19:05 | NUR ---
TD/RN INITIAL NOTES RECEIVED PT IN BED, OBTUNDED. WITH INTACT TRACH PORTEX#7, TOLERATING VENT SETTINGS: AC12; TV 500; FIO2 40; PEEP5. NO SOB NOTED, SPO2 98%. SR HR ON 90S ON TELE, GTUBE INTACT AND IN PLACED, WITH ONGOING GTF JEVITY @ 65 ML/HR, TOLERATING WELL. CAT MIDLINE INTACT AND PATENT. ASPIRATION PRECAUTION AND SAFETY MEASURES IN PLACED. CALL LIGHT WITHIN EASY REACH. WILL CONT TO MONITOR
[2018-05-16 20:00] VITALS: BP 99/56
[2018-05-16] MEDS: SENNOSIDES 8.6 MG TABLET GT SCH (21:04)
[2018-05-16] MEDS: HYDROCODONE/APAP 10/325MG 1 EA TABLET GT PRN (21:29)
[2018-05-16] MEDS: ACETAMINOPHEN 650 MG/SUPP.RECT RC PRN (21:29)
[2018-05-17] VITALS (7 sets, daily range): BP systolic 104–143; BP diastolic 54–84
[2018-05-17] MEDS: BACLOFEN (10 MG) 10 MG TABLET GT SCH ×4 (00:04→17:12)
[2018-05-17] MEDS: JEVITY 1.2 CAL 1,000 ML BOTTLE GT PRN ×2 (00:51→15:08)
--- NOTE | 2018-05-17 01:32 | NUR ---
PT RCVD ON MECHANICAL VENT WITH CHARTED SETTINGS. SX DONE. PT TRACH PATENT AND SECURE. CUFF CHECKED VIA VICE PRESIDENT OF NURSING. ALARMS ARE ON AND AUDIBLE. VENT PLUGGED INTO RED OUTLET. AMBU BAG AT BEDSIDE. WILL CONTINUE TO MONITOR. Addendum: 05/17/18 at 0133 by RUBA OSPINA RT Amended: Links added.
[2018-05-17] MEDS: ACETAMINOPHEN 325 MG TABLET PO PRN ×3 (03:10→16:41)
[2018-05-17] MEDS: CEFTAZIDIME 1 G in IV D5W 50 ML IV SCH ×3 (04:15→21:25)
--- NOTE | 2018-05-17 06:45 | NUR ---
TD/RN INITIAL NOTES PT IN BED RESTING COMFORTABLY. WITH INTACT TRACH, TOLERATING VENT SETTIGNS, NO SOB NOTED. GTUBE REMAINED INTACT AND IN PLACED, CAT MIDLINE KEPT INTACT AND PATENT. ASPIRATION PRECAUTION AND SAFETY MEASURES OBSERVED AT ALL TIMES. ENDORSED TO AM SHIFT RN FOR TWIN
--- NOTE | 2018-05-17 07:25 | NUR ---
VEENA RN NOTE RECEIVED PATIENT IN BED , WITH TRACH TO VENT SETTING ORDERED ,OBTUNDED, ON TELE MONITOR ST HR 105, WITH ORTIZ CATH TO GRAVITY WITH YELLOW COLOR URINE, WITH GTUBE FEEDING ORDERED, KEEP HOB ELEVATED AT ALL TIME,NO RESIDUAL NOTED RT UPPER ARM MIDLINE IN PLACE , BED IN LOWEST AND LOCKED POSITION , RT AT BEDSIDE WILL CONT TO MONITOR CLOSELY
[2018-05-17 07:36] LABS: BASOPHILS # (AUTO) 0.1 /CMM (0.0-0.2); BASOPHILS % (AUTO) 0.5 % (0.0-2.0); EOSINOPHILS % (AUTO) 9.7 % (0.0-6.0); HEMATOCRIT 28 % (39-51); HEMOGLOBIN 9.3 g/dL (13.5-17.5); LYMPHOCYTES # (AUTO) 1.5 /CMM (0.8-4.8); LYMPHOCYTES % (AUTO) 14.5 % (20.0-44.0); MEAN CORPUSCULAR HGB CONC 34 g/dl (31.0-36.0); MEAN CORPUSCULAR VOLUME 93 fL (80-96); MONOCYTES # (AUTO) 0.8 /CMM (0.1-1.30); MONOCYTES % (AUTO) 8.3 % (2.0-12.0); NEUTROPHILS # (AUTO) 6.7 /CMM (1.8-8.9); PLATELET COUNT (AUTO) 479 /CMM (150-450); RED BLOOD CELL COUNT(AUTO) 2.98 MIL/uL (4.5-6.0)
[2018-05-17 08:00] LABS: CALCIUM, SERUM 8.5 mg/dL (8.5-10.1); CREATININE 0.5 mg/dL (0.6-1.3); POTASSIUM 3.9 mmol/L (3.5-5.1)
[2018-05-17] MEDS: LEVETIRACETAM SOL (5 ML) 100 MG/ML UDC GT SCH ×2 (08:46→21:23)
[2018-05-17] MEDS: DOCUSATE SODIUM LIQ 100 MG/10 ML UDC PO SCH ×2 (08:46→16:39)
[2018-05-17] MEDS: DOXYCYCLINE HYCLATE (100 MG) 100 MG TABLET PO SCH ×2 (08:47→21:23)
[2018-05-17] MEDS: LORATADINE 10 MG TABLET PO SCH (08:47)
[2018-05-17] MEDS: TIZANIDINE HCL 4 MG TABLET GT SCH ×2 (08:47→16:38)
[2018-05-17] MEDS: PROSOURCE / PROSTAT (PYXIS) 30 ML UDC GT SCH ×3 (08:47→16:39)
[2018-05-17] MEDS: TOPIRAMATE 25 MG TABLET GT SCH ×2 (08:48→21:23)
[2018-05-17] MEDS: METOPROLOL TARTRATE 25 MG TABLET GT SCH ×2 (08:48→16:39)
[2018-05-17] MEDS: Z GUARD REMEDY 2 OZ OINT TP SCH (08:49)
[2018-05-17] MEDS: DAKINS QUARTER STRENGTH (0.125%) 480 ML BOTTLE TOP SCH ×2 (08:49→21:24)
[2018-05-17] MEDS: MUPIROCIN OINT 2% 22 GM TUBE SCH ×2 (08:50→21:24)
--- NOTE | 2018-05-17 09:00 | NUR ---
KAITARA TARAKA NOTE T 102.3 TYLENOL AND COOLING MEASURE PROVIDED, WILL CONT TO MONITOR CLOSELY
--- NOTE | 2018-05-17 11:40 | NUR ---
CORRECTION LIEUTENANT NOTE SEEN BY DR OLSON, NOTIFIED THAT EARLIER T 102.3 AND AFTER TYLENOL GIVEN T IS 101.8 COOLING MEASURE PROVIDED , STATED TO CONT TO MONITOR CLOSELY
[2018-05-17] MEDS: SOD FERRIC GLUC 125 MG in IV NS 0.9% 100 ML IV SCH (13:40)
--- NOTE | 2018-05-17 14:37 | NUR ---
TECHNICAL RESEARCH SCIENTIST NOTE ALL NEEDS ATTENDED , TURN REPOSITION Q2 HOUR ,WILL CONT TO MONITOR CLOSELY
--- NOTE | 2018-05-17 17:16 | NUR ---
ELECTRICAL ASSEMBLY SUPERVISOR NOTE ABLE TO MAKE BM .KEEP CLEAN DRY, TURN REPOSITION Q2 HOUR ,CALL LIGHT WITHIN REACH, WILL CONT TO MONITOR CLOSELY, T 100.7 ,TYLENOL VIA G TUBE AND COOLING MEASURE PROVIDED,
--- NOTE | 2018-05-17 18:32 | NUR ---
HIGHWAY MAINTAINER NOTE ON TRACH TO VENT SETTING ORDERED , AMBU BAG AT HOB AT ALL TIME , ON G TUBE FEEDING ORDERED ,KEEP HOB ELEVATED AT ALL TIME ,WILL CONT TO MONITOR
[2018-05-17] MEDS: SENNOSIDES 8.6 MG TABLET GT SCH (21:23)
[2018-05-18] VITALS: BP 141/77
[2018-05-18] MEDS: BACLOFEN (10 MG) 10 MG TABLET GT SCH ×4 (00:12→17:38)
[2018-05-18] MEDS: ACETAMINOPHEN 650 MG/SUPP.RECT RC PRN (00:12)
--- NOTE | 2018-05-18 01:31 | NUR ---
RT NOTE PATIENT WAS RECEIVED ON CONTINUOUS VENT SUPPORT ON NOTED SETTINGS. PRN SUCTIONING WAS DONE. TRACH TUBE PATENT AND SECURED. ALARMS ON AND AUDIBLE. AMBUBAG AT BEDSIDE . WILL CONTINUE TO MONITOR PATIENT. Addendum: 05/18/18 at 0133 by TERRY GONZALEZ RT Amended: Links added.
[2018-05-18 04:00] VITALS: BP 147/83
[2018-05-18] MEDS: CEFTAZIDIME 1 G in IV D5W 50 ML IV SCH ×3 (05:25→20:03)
[2018-05-18 06:30] LABS: BASOPHILS % (AUTO) 0.4 % (0.0-2.0); EOSINOPHILS % (AUTO) 10.6 % (0.0-6.0); HEMATOCRIT 31 % (39-51); LYMPHOCYTES # (AUTO) 1.6 /CMM (0.8-4.8); LYMPHOCYTES % (AUTO) 12.5 % (20.0-44.0); MEAN CORPUSCULAR HGB CONC 32 g/dl (31.0-36.0); MEAN CORPUSCULAR VOLUME 94 fL (80-96); MONOCYTES # (AUTO) 0.9 /CMM (0.1-1.30); MONOCYTES % (AUTO) 6.5 % (2.0-12.0); NEUTROPHILS # (AUTO) 9.1 /CMM (1.8-8.9); PLATELET COUNT (AUTO) 479 /CMM (150-450); RED BLOOD CELL COUNT(AUTO) 3.26 MIL/uL (4.5-6.0)
[2018-05-18 06:37] LABS: CREATININE 0.5 mg/dL (0.6-1.3); POTASSIUM 4.1 mmol/L (3.5-5.1)
--- NOTE | 2018-05-18 06:50 | NUR ---
DIRECTOR OF MEDICAL EDUCATION PT TURNED AND REPOSITIONED Q2HRS. RENDERED COMPLETE BED BATH. TURNED AND REPOSITIONED Q2HRS AND PROVIDED ORAL CARE. PT TOLERATED TUBE FEEDING WELL. TEMP 99 THROUGHOUT WITH COOLING MEASURES INITIATED AND TYLENOL GIVEN.
--- NOTE | 2018-05-18 07:39 | NUR ---
GANTRY CRANE OPERATOR OPENING NOTES RECEIVED BEDSIDE REPORT PATIENT A/C X0 OBTUNDED ON VENT TOLERATING SETTINGS WITH NO SIGNS OR SYMPTOMS OF DISTRESS OR ACUTE PAIN. NORMAL SINUS RHYTHM ON TELE MONITOR IN 90'S. GTF RUNNING JEVITY 1.2 @ 65ML/HR WITH NO RESIDUAL NAUSEA OR VOMITING. ORTIZ CATH DRAINING CLEAR YELLOW URINE. CAT MIDLINE SL. SAFETY AND ISOLATION PRECAUTIONS IN PLACE. BED IN LOW PLACE CALL LIGHT WITHIN REACH. WILL CONT TO MONITOR
[2018-05-18 08:00] VITALS: BP_SYST 129; BP_SYST 130; BP_DIAS 73; BP_DIAS 85
[2018-05-18] MEDS: LEVETIRACETAM SOL (5 ML) 100 MG/ML UDC GT SCH ×2 (09:07→20:02)
[2018-05-18] MEDS: DOCUSATE SODIUM LIQ 100 MG/10 ML UDC PO SCH ×2 (09:07→17:00)
[2018-05-18] MEDS: TIZANIDINE HCL 4 MG TABLET GT SCH ×2 (09:08→17:38)
[2018-05-18] MEDS: DOXYCYCLINE HYCLATE (100 MG) 100 MG TABLET PO SCH (09:08)
[2018-05-18] MEDS: LORATADINE 10 MG TABLET PO SCH (09:08)
[2018-05-18] MEDS: TOPIRAMATE 25 MG TABLET GT SCH ×2 (09:09→20:03)
[2018-05-18] MEDS: METOPROLOL TARTRATE 25 MG TABLET GT SCH ×2 (09:09→17:39)
[2018-05-18] MEDS: PROSOURCE / PROSTAT (PYXIS) 30 ML UDC GT SCH ×3 (09:09→17:39)
[2018-05-18] MEDS: DAKINS QUARTER STRENGTH (0.125%) 480 ML BOTTLE TOP SCH ×2 (09:20→20:05)
[2018-05-18] MEDS: Z GUARD REMEDY 2 OZ OINT TP SCH (09:20)
[2018-05-18] MEDS: MUPIROCIN OINT 2% 22 GM TUBE SCH ×2 (09:21→20:05)
[2018-05-18 12:00] VITALS: BP 115/65
[2018-05-18] MEDS: JEVITY 1.2 CAL 1,000 ML BOTTLE GT PRN (12:53)
[2018-05-18] MEDS: SOD FERRIC GLUC 125 MG in IV NS 0.9% 100 ML IV SCH (14:20)
[2018-05-18 16:00] VITALS: BP 129/72
--- NOTE | 2018-05-18 17:18 | NUR ---
RT NOTE PT REC'D TRACHED ON [facility] VENT ON AC MODE. NO RESP DISTRESS OR SOB NOTED. TRACH PATENT AND SECURED. SX'D FOR THICK MOD AMT OF PALE YELLOW SECRETIONS. ALARMS ARE SET AND AUDIBLE. VENT PLUGGED INTO RED OUTLET. AMBU BAG BEDSIDE WILL CONTINUE TO MONITOR Addendum: 05/18/18 at 1723 by YOVANA DE LA GARZA RT Amended: Links added.
--- NOTE | 2018-05-18 19:28 | NUR ---
HYDRAULIC RUBBISH COMPACTOR MECHANIC CLOSING NOTES BEDSIDE REPORT GIVEN TO STUART PATIENT A/C X0 OBTUNDED ON VENT TOLERATING SETTINGS WITH NO SIGNS OR SYMPTOMS OF DISTRESS OR ACUTE PAIN. NORMAL SINUS RHYTHM ON TELE MONITOR IN 90'S. GTF RUNNING JEVITY 1.2 @ 65ML/HR WITH NO RESIDUAL NAUSEA OR VOMITING. ORTIZ CATH DRAINING CLEAR YELLOW URINE. CAT MIDLINE SL.ALL MEDICATIONS ADMINISTERED WITH NO ADVERSE REACTION. ALL WOUND TREATMENT DONE. FATHER AT BEDSIDE UPDATED ON PATIENTS CONDITION SAFETY AND ISOLATION PRECAUTIONS IN PLACE. BED IN LOW PLACE CALL LIGHT WITHIN REACH. TWIN
--- NOTE | 2018-05-18 19:30 | NUR ---
MS RN NOTE REPORT GIVEN BESIDE. RECEIVED PATIENT IN BED , WITH TRACH TO VENT SETTING ORDERED, TOLERATING WELL ,OBTUNDED, ON TELE MONITOR ST HR 90'S, WITH ORTIZ CATH TO GRAVITY WITH YELLOW COLOR URINE, WITH GTUBE FEEDING ORDERED, KEEP HOB ELEVATED AT ALL TIME,NO RESIDUAL NOTED RT UPPER ARM MIDLINE IN PLACE. PATIENT TURNED AND REPOSITIONED FOR COMFORT. BED IN LOWEST AND LOCKED POSITION , RT AT BEDSIDE WILL CONT TO MONITOR CLOSELY
[2018-05-18 20:00] VITALS: BP 102/66
[2018-05-18] MEDS: SENNOSIDES 8.6 MG TABLET GT SCH (21:23)
[2018-05-18] MEDS: DOXYCYCLINE 100 MG in IV D5W 100 ML IV SCH (21:23)
[2018-05-19] VITALS: BP 124/87
[2018-05-19] MEDS: BACLOFEN (10 MG) 10 MG TABLET GT SCH ×4 (01:32→17:00)
[2018-05-19 04:00] VITALS: BP 134/84
[2018-05-19] MEDS: CEFTAZIDIME 1 G in IV D5W 50 ML IV SCH ×3 (05:27→21:24)
[2018-05-19 06:53] LABS: CREATININE 0.5 mg/dL (0.6-1.3); MAGNESIUM 2.1 mg/dL (1.8-2.4); POTASSIUM 4.6 mmol/L (3.5-5.1)
--- NOTE | 2018-05-19 07:00 | NUR ---
RN NOTE RECEIVED PT ON BED , VENT/TRACH DEPENDENT, TRACH CARE DONE, TOLERATING CURRENT VENT SETTING WELL, NO SOB NOTED, ON TELE ST, HR IN 120'S , ORTIZ DRINING TO GRAVITY, JEVITY AT 65CC /HR RUNNING VIA GT , NO RESIDUAL NOTED, R UPPER ARM MIDLINE SITE CLEAN, DRY AND INTACT. PATIENT TURNED AND REPOSITIONED FOR COMFORT. BED IN LOWEST AND LOCKED POSITION , SR UP X3, CALL LIGHT WITHIN EASY REACH, WILL CONT TO MONITOR CLOSELY.
--- NOTE | 2018-05-19 07:27 | NUR ---
WHEEL OF FORTUNE DEALER NOTE REPORT GIVEN TO AM FOR TWIN. PATIENT STABLE NO S.S OF DISTRESS.
[2018-05-19 08:00] VITALS: BP 136/85
[2018-05-19] MEDS: DOCUSATE SODIUM LIQ 100 MG/10 ML UDC PO SCH ×2 (08:13→17:00)
[2018-05-19] MEDS: LEVETIRACETAM SOL (5 ML) 100 MG/ML UDC GT SCH ×2 (08:13→20:08)
[2018-05-19] MEDS: ONDANSETRON HCL/PF 4 MG/2 ML VIAL IV PRN (08:13)
[2018-05-19 08:14] LABS: BASOPHILS % (AUTO) 0.3 % (0.0-2.0); EOSINOPHILS % (AUTO) 6.8 % (0.0-6.0); HEMATOCRIT 31 % (39-51); HEMOGLOBIN 10.1 g/dL (13.5-17.5); LYMPHOCYTES % (AUTO) 8.6 % (20.0-44.0); MEAN CORPUSCULAR HGB CONC 33 g/dl (31.0-36.0); MEAN CORPUSCULAR VOLUME 93 fL (80-96); MONOCYTES % (AUTO) 8.4 % (2.0-12.0); NEUTROPHILS # (AUTO) 9.1 /CMM (1.8-8.9); NEUTROPHILS % (AUTO) 75.9 % (43.0-81.0); PLATELET COUNT (AUTO) 483 /CMM (150-450)
[2018-05-19] MEDS: TOPIRAMATE 25 MG TABLET GT SCH ×2 (08:14→20:08)
[2018-05-19] MEDS: LORATADINE 10 MG TABLET PO SCH (08:14)
[2018-05-19] MEDS: TIZANIDINE HCL 4 MG TABLET GT SCH ×2 (08:14→17:00)
[2018-05-19] MEDS: METOPROLOL TARTRATE 25 MG TABLET GT SCH ×2 (08:15→17:01)
[2018-05-19] MEDS: HYDROCODONE/APAP 10/325MG 1 EA TABLET GT PRN (08:17)
[2018-05-19] MEDS: ACETAMINOPHEN 325 MG TABLET PO PRN ×2 (08:17→21:28)
[2018-05-19] MEDS: PROSOURCE / PROSTAT (PYXIS) 30 ML UDC GT SCH ×3 (08:18→17:01)
[2018-05-19] MEDS: MUPIROCIN OINT 2% 22 GM TUBE SCH ×2 (08:20→20:18)
[2018-05-19] MEDS: DAKINS QUARTER STRENGTH (0.125%) 480 ML BOTTLE TOP SCH ×2 (08:21→20:18)
[2018-05-19] MEDS: Z GUARD REMEDY 2 OZ OINT TP SCH (08:21)
[2018-05-19] MEDS: DOXYCYCLINE 100 MG in IV D5W 100 ML IV SCH (09:21)
[2018-05-19 12:00] VITALS: BP 120/60
--- NOTE | 2018-05-19 12:00 | NUR ---
RN NOTES DR. PASCAL NOTFED REGRADING T=100.6 AXILLARY , CONTINUE TO MONITOR .
[2018-05-19] MEDS: JEVITY 1.2 CAL 1,000 ML BOTTLE GT PRN (13:25)
[2018-05-19 16:00] VITALS: BP 118/82
--- NOTE | 2018-05-19 18:00 | NUR ---
RN NOTES PT RIDDHI, MARGARITA GREEN WELL, NO SIGNIFICANT CHANGES NOTED ON THIS SHIFT, WILL ENDOSE TO EARLY CHILDHOOD EDUCATION SPECIALIST NURSE FOR CONTINUITY OF CARE .
[2018-05-19] MEDS ORDERED: FEE PK DOSING 1 MIN EA MC ONE (19:02)
--- NOTE | 2018-05-19 19:30 | NUR ---
MS RN NOTE, RECEIVED PATIENT IN BED , ON MECHANICAL VENTILATOR, TOLERATED SETTING WELL ,OBTUNDED, ON TELE MONITOR ST HR 90-100'S, WITH ORTIZ CATH TO GRAVITY WITH YELLOW COLOR URINE, WITH GTUBE FEEDING INFUSING AT THIS TIME, PATIENT T TOLERATED WELL, WITH 30ML RESIDUAL AT THIS TIME, KEEP HOB ELEVATED AT ALL TIMES, RT UPPER ARM MIDLINE IN PLACED PATENT AND INTACT, SUCTIONING PROVIDED, AND WELL REPOSITIONED AT THIS TIME, DRY AND CLEAN, BED IN LOWEST AND LOCKED POSITION , WILL CONTINUE TO MONITOR CLOSELY
[2018-05-19 20:00] VITALS: BP 108/60
[2018-05-19] MEDS: VANCOMYCIN 1 GM in IV D5W 250 ML IV SCH (20:07)
[2018-05-19] MEDS: SENNOSIDES 8.6 MG TABLET GT SCH (21:24)
[2018-05-20] VITALS: BP 124/61
[2018-05-20] MEDS: BACLOFEN (10 MG) 10 MG TABLET GT SCH ×5 (00:02→23:31)
[2018-05-20 04:00] VITALS: BP 107/69
[2018-05-20] MEDS: VANCOMYCIN 1 GM in IV D5W 250 ML IV SCH ×4 (04:30→21:00)
[2018-05-20] MEDS: CEFTAZIDIME 1 G in IV D5W 50 ML IV SCH ×3 (05:18→21:33)
--- NOTE | 2018-05-20 06:37 | NUR ---
MS RN NOTE, PATIENT IN BED , ON MECHANICAL VENTILATOR, TOLERATED SETTING WELL ,OBTUNDED, ON TELE MONITOR ST HR 90-110'S, WITH ORTIZ CATH TO GRAVITY WITH YELLOW COLOR URINE, WITH GTUBE FEEDING INFUSING AT THIS TIME, PATIENT T TOLERATED WELL, WITH 30ML RESIDUAL AT THIS TIME, KEEP HOB ELEVATED AT ALL TIMES, RT UPPER ARM MIDLINE IN PLACED PATENT AND INTACT, SUCTIONING PROVIDED, AND WELL REPOSITIONED AT THIS TIME, DRY AND CLEAN, EPISODE OF HIG TEMP DURING THE NIGHT, BED IN LOWEST AND LOCKED POSITION , WILL CENDORSE CONT OF CARE TO ONCOMING NURSE.
[2018-05-20] MEDS: JEVITY 1.2 CAL 1,000 ML BOTTLE GT PRN (06:47)
[2018-05-20 07:19] LABS: BASOPHILS # (AUTO) 0.1 /CMM (0.0-0.2); EOSINOPHILS % (AUTO) 7.4 % (0.0-6.0); HEMATOCRIT 33 % (39-51); LYMPHOCYTES # (AUTO) 0.9 /CMM (0.8-4.8); LYMPHOCYTES % (AUTO) 9.1 % (20.0-44.0); MEAN CORPUSCULAR HGB CONC 33 g/dl (31.0-36.0); MEAN CORPUSCULAR VOLUME 94 fL (80-96); MONOCYTES % (AUTO) 9.4 % (2.0-12.0); NEUTROPHILS # (AUTO) 7.5 /CMM (1.8-8.9); NEUTROPHILS % (AUTO) 73.1 % (43.0-81.0); PLATELET COUNT (AUTO) 424 /CMM (150-450); RED BLOOD CELL COUNT(AUTO) 3.53 MIL/uL (4.5-6.0); WHITE BLOOD COUNT (AUTO) 10.3 K/uL (4.3-11.0)
[2018-05-20 07:26] LABS: CALCIUM, SERUM 9.1 mg/dL (8.5-10.1); CREATININE 0.5 mg/dL (0.6-1.3); POTASSIUM 4.1 mmol/L (3.5-5.1)
[2018-05-20 08:00] VITALS: BP_SYST 113; BP_SYST 125; BP_DIAS 46; BP_DIAS 64
[2018-05-20] MEDS: LEVETIRACETAM SOL (5 ML) 100 MG/ML UDC GT SCH ×2 (08:56→21:33)
[2018-05-20] MEDS: DOCUSATE SODIUM LIQ 100 MG/10 ML UDC PO SCH ×2 (08:56→17:32)
[2018-05-20] MEDS: LORATADINE 10 MG TABLET PO SCH (08:57)
[2018-05-20] MEDS: METOPROLOL TARTRATE 25 MG TABLET GT SCH ×2 (08:58→17:32)
[2018-05-20] MEDS: TIZANIDINE HCL 4 MG TABLET GT SCH ×2 (08:59→17:32)
[2018-05-20] MEDS: DAKINS QUARTER STRENGTH (0.125%) 480 ML BOTTLE TOP SCH ×2 (09:00→21:39)
[2018-05-20] MEDS: Z GUARD REMEDY 2 OZ OINT TP SCH (09:00)
[2018-05-20] MEDS: TOPIRAMATE 25 MG TABLET GT SCH ×2 (09:02→21:33)
[2018-05-20] MEDS: PROSOURCE / PROSTAT (PYXIS) 30 ML UDC GT SCH ×3 (09:20→17:33)
[2018-05-20] MEDS: Z GUARD REMEDY 2 OZ OINT TP PRN (10:04)
[2018-05-20] MEDS: MUPIROCIN OINT 2% 22 GM TUBE SCH ×2 (10:05→21:38)
[2018-05-20 12:00] VITALS: BP 115/68
--- NOTE | 2018-05-20 14:13 | NUR ---
report given to FARRUKH Marc for FARRUKH Davis with questions answered
--- NOTE | 2018-05-20 15:00 | NUR ---
RN NOTES RECEIVED PATIENT ON MECH VENT WITH BREATHING NORMAL, EVEN AND UNLABORED. NO SOB NOTED. NO ACUTE DISTRESS NOTED. TELE MONITOR REVEALS ST, HT=[phone]. CAT MIDLINE IS PATENT AND INTACT. ON GT FEEDING, TOLERATED WELL. ASPIRATION PRECAUTION TAKEN. KEPT CLEAN,DRY AND COMFORTABLE. ALL NEEDS ATTENDED. SAFETY MEASURE OBSERVED. CALL LIGHT WITH IN REACH. WILL CONT TO MONITOR.
[2018-05-20 16:00] VITALS: BP 138/86
--- NOTE | 2018-05-20 19:08 | NUR ---
RN NOTES PATIENT ENDORSED TO NEXT SHIFT IN STABLE CONDITION FOR CONTINUITY OF CARE. WILL CONT TO MONITOR.
--- NOTE | 2018-05-20 19:45 | NUR ---
RACK PULLER NOTE: RECEIVED PT ON BED WITH NO APPARENT DISTRESS NOTED. NO FACIAL GRIMACING OR ANY SIGNS OF PAIN NOTED. ON [facility] VENT, SETTINGS ORDERED. RIGHT UPPER ARM MIDLINE INTACT AND PATENT, FLUSHING WELL. ON ORTIZ CATH WITH CLEAR YELLOW URINE DRAINING. SINUS RHYTHM HR 94BPM ON TELE MONITOR. KEPT CLEAN, DRY AND COMFORTABLE. SAFETY AND FALL PRECAUTIONS OBSERVED AND MAINTAINED. WILL CONTINUE TO MONITOR PT.
[2018-05-20 20:00] VITALS: BP 105/76
[2018-05-20] MEDS: SENNOSIDES 8.6 MG TABLET GT SCH (21:32)
[2018-05-20] MEDS: HYDROCODONE/APAP 10/325MG 1 EA TABLET GT PRN (23:53)
[2018-05-21] VITALS: BP 127/78
[2018-05-21] MEDS: JEVITY 1.2 CAL 1,000 ML BOTTLE GT PRN ×2 (01:15→17:47)
[2018-05-21 04:00] VITALS: BP 133/79
[2018-05-21] MEDS: CEFTAZIDIME 1 G in IV D5W 50 ML IV SCH ×3 (05:00→21:32)
[2018-05-21] MEDS: BACLOFEN (10 MG) 10 MG TABLET GT SCH ×4 (06:00→23:58)
--- NOTE | 2018-05-21 07:13 | NUR ---
RESERVATIONS SALES SUPERVISOR NOTE: NO CHANGES NOTED THROUGHOUT THE SHIFT. NO APPARENT DISTRESS NOTED. [facility], SETTINGS ORDERED. SATURATING WELL. GT INTACT AND PATENT, NO RESIDUAL NOTED AT THIS TIME. ORTIZ CATH INTACT, DRAINED 900CC OF URINE OUTPUT. SINUS TACHY ON TELE MONITOR HR 105BPM. KEPT CLEAN, DRY AND COMFORTABLE. SAFETY AND FALL PRECAUTIONS OBSERVED AND MAINTAINED. ENDORSED TO DAY SHIFT RN FOR CONTINUITY OF CARE.
[2018-05-21 08:00] VITALS: BP 130/82
--- NOTE | 2018-05-21 08:00 | NUR ---
VEENA RN NOTE PATIENT RECEIVED IN BED ON MECHANICAL VENTILATOR TOLERATING WELL AND RUNNING AT PRESCRIBED SETTINGS. ,OBTUNDED, ON TELE MONITOR ST HR 90-110'S, WITH ORTIZ CATH TO GRAVITY WITH YELLOW COLOR URINE, WITH GTUBE FEEDING INFUSING AT THIS TIME, G-TUBE PATENT W/ 10 ML RESIDUAL. LOW GRADE FEVER NOTED, HOB ELEVATED AT ALL TIMES, RT UPPER ARM MIDLINE IN PLACE. MIDLINE FOUND INTACT BUT NOT PATENT. FISHER TRAMMEL NET NOTIFIED, MIDLINE RN TO BE NOTIFIED. PATIENT CLEAN AND DRY, VS STABLE, NO DISTRESS AT THIS TIME. ,SAFETY MEASURES IN PLACE. BED IN LOWEST AND LOCKED POSITION.
[2018-05-21] MEDS: PROSOURCE / PROSTAT (PYXIS) 30 ML UDC GT SCH ×3 (08:17→16:09)
[2018-05-21] MEDS: MUPIROCIN OINT 2% 22 GM TUBE SCH ×2 (08:20→09:48)
[2018-05-21] MEDS: VANCOMYCIN 1 GM in IV D5W 250 ML IV SCH ×3 (08:25→21:32)
[2018-05-21 08:26] LABS: CALCIUM, SERUM 8.5 mg/dL (8.5-10.1); CREATININE 0.4 mg/dL (0.6-1.3); MAGNESIUM 2.2 mg/dL (1.8-2.4); POTASSIUM 4.3 mmol/L (3.5-5.1)
[2018-05-21] MEDS: LEVETIRACETAM SOL (5 ML) 100 MG/ML UDC GT SCH ×2 (08:27→21:29)
[2018-05-21] MEDS: METOPROLOL TARTRATE 25 MG TABLET GT SCH ×2 (08:29→16:08)
[2018-05-21] MEDS: TIZANIDINE HCL 4 MG TABLET GT SCH ×2 (08:29→16:07)
[2018-05-21] MEDS: LORATADINE 10 MG TABLET PO SCH (08:30)
[2018-05-21] MEDS: TOPIRAMATE 25 MG TABLET GT SCH ×2 (08:30→21:29)
[2018-05-21] MEDS: DOCUSATE SODIUM LIQ 100 MG/10 ML UDC PO SCH ×2 (08:30→16:07)
--- NOTE | 2018-05-21 09:00 | NUR ---
UPSET WELDING MACHINE OPERATOR NOTE MEDS FOR 0500 AND 0600 GIVEN BY MOLD CLAMPERFIRER PORTABLE BOILER
[2018-05-21 09:30] LABS: BASOPHILS % (AUTO) 0.4 % (0.0-2.0); EOSINOPHILS % (AUTO) 11.3 % (0.0-6.0); HEMATOCRIT 32 % (39-51); HEMOGLOBIN 10.7 g/dL (13.5-17.5); LYMPHOCYTES # (AUTO) 0.9 /CMM (0.8-4.8); LYMPHOCYTES % (AUTO) 13.8 % (20.0-44.0); MEAN CORPUSCULAR HGB CONC 33 g/dl (31.0-36.0); MEAN CORPUSCULAR VOLUME 95 fL (80-96); MONOCYTES # (AUTO) 0.6 /CMM (0.1-1.30); MONOCYTES % (AUTO) 8.7 % (2.0-12.0); NEUTROPHILS # (AUTO) 4.4 /CMM (1.8-8.9); NEUTROPHILS % (AUTO) 65.8 % (43.0-81.0); PLATELET COUNT (AUTO) 440 /CMM (150-450); RED BLOOD CELL COUNT(AUTO) 3.42 MIL/uL (4.5-6.0); WHITE BLOOD COUNT (AUTO) 6.7 K/uL (4.3-11.0)
--- NOTE | 2018-05-21 09:30 | NUR ---
VEENA RN NOTE PATIENT RECEIVED IN BED ON MECHANICAL VENTILATOR TOLERATING WELL AND RUNNING AT PRESCRIBED SETTINGS. ,OBTUNDED, ON TELE MONITOR ST HR 90-110'S, WITH ORTIZ CATH TO GRAVITY WITH YELLOW COLOR URINE, WITH GTUBE FEEDING INFUSING AT THIS TIME, G-TUBE PATENT W/ 10 ML RESIDUAL. LOW GRADE FEVER NOTED, HOB ELEVATED AT ALL TIMES, RT UPPER ARM MIDLINE IN PLACE. MIDLINE FOUND INTACT BUT NOT PATENT. CAR LOADER NOTIFIED, MIDLINE RN TO BE NOTIFIED. PATIENT CLEAN AND DRY, VS STABLE, NO DISTRESS AT THIS TIME. ,SAFETY MEASURES IN PLACE. BED IN LOWEST AND LOCKED POSITION.
[2018-05-21] MEDS: Z GUARD REMEDY 2 OZ OINT TP PRN (09:32)
[2018-05-21] MEDS: Z GUARD REMEDY 2 OZ OINT TP SCH (09:49)
--- NOTE | 2018-05-21 10:37 | NUR ---
VEENA RN NOTE PATIENT MID LINE FOUND INTACT BUT NOT PATENT. DRESSER TENDER NOTIFIED. NURSING FISHER REEF NET TO CONTACT MID LINE RN.
[2018-05-21 12:00] VITALS: BP 126/73
--- NOTE | 2018-05-21 12:05 | NUR ---
RN VEENA OTE MID LINE RUNNING, INTACT AND PATENT AT THIS TIME. DRESSING REMOVED AND LINE PLACEMENT ADJUSTED. MIDLINE RN STILL SCHEDULED TO REASSESS.
--- NOTE | 2018-05-21 13:00 | NUR ---
BIOLOGICAL PLANT OPERATOR NOTE UNABLE TO ADMINISTERED FORTAZ IV NO IV SITE AVAILABLE, PHARMACY AWARE
--- NOTE | 2018-05-21 13:19 | NUR ---
EQUINE INTERN NOTE SPOKE TO PATIENT MOTHER. TELEPHONE CONSENT OBTAINED FOR PICC LINE. PICC LINE ORDERED PER DR. PASCAL AND KHLOERN,CERTIFIED NEURODIAGNOSTIC TECHNOLOGIST,ID. OK TO INSERT.
--- NOTE | 2018-05-21 15:34 | NUR ---
GERMINATION TESTING MANAGER NOTE PER RUBINA PEARSON DNP OK TO TO START TO USE PICC LONE , NEW PICC LINE ON RT UPPER ARM INSERTED ORDERED
[2018-05-21] MEDS: DAKINS QUARTER STRENGTH (0.125%) 480 ML BOTTLE TOP SCH ×2 (15:53→21:33)
[2018-05-21 16:00] VITALS: BP 141/91
[2018-05-21] MEDS: HYDROCODONE/APAP 10/325MG 1 EA TABLET GT PRN ×2 (16:07→23:58)
--- NOTE | 2018-05-21 17:29 | NUR ---
OIL LEASE BROKER NOTES PATIENT GIVEN PRN NORCO FOR PAIN. PATIENT TACHYCARDIC AND EXHIBITING FACIAL GRIMACING.
--- NOTE | 2018-05-21 18:21 | NUR ---
VANCOMYCIN ADMINISTERED VIA NEW PICC LINE ONCE CLEARANCE TO USE LINE OBTAINED FROM . Addendum: 05/21/18 at 1822 by SOL SAUCEDO RN ESVIN MENDOZA
--- NOTE | 2018-05-21 19:08 | NUR ---
STATION INSTALLATION SUPERVISOR NOTE RESTING COMFORTABLY AT THIS TIME ,CONT ON TACH AND VENT SETTINGS ORDERED, NO FEVER NOTED ,WILL CONT TO MONITOR CLOSELY
[2018-05-21 20:00] VITALS: BP 104/77
--- NOTE | 2018-05-21 20:00 | NUR ---
RN INITIAL NOTE PATIENT RECEIVED IN BED ON MECHANICAL VENTILATOR TOLERATING WELL AND RUNNING AT PRESCRIBED SETTINGS. ,OBTUNDED, ON TELE MONITOR ST HR 117, WITH ORTIZ CATH TO GRAVITY WITH YELLOW COLOR URINE, WITH GTUBE FEEDING INFUSING AT ORDERED RATE AT THIS TIME, G-TUBE PATENT W/ 5 ML RESIDUAL. HOB ELEVATED AT ALL TIMES, RT UPPER ARM PICC IN PLACE. PATIENT CLEAN AND DRY, NO DISTRESS AT THIS TIME. ,SAFETY MEASURES IN PLACE. BED IN LOWEST AND LOCKED POSITION. WILL CONT TO MONITOR.
[2018-05-21] MEDS: SENNOSIDES 8.6 MG TABLET GT SCH (21:29)
--- NOTE | 2018-05-21 23:30 | NUR ---
RN INITIAL NOTES PATIENT GIVEN PRN NORCO FOR PAIN. PATIENT TACHYCARDIC AND EXHIBITING FACIAL GRIMACING.
[2018-05-22] VITALS: BP 130/80
[2018-05-22 04:00] VITALS: BP 125/73
[2018-05-22] MEDS: BACLOFEN (10 MG) 10 MG TABLET GT SCH ×3 (05:17→17:18)
[2018-05-22] MEDS: CEFTAZIDIME 1 G in IV D5W 50 ML IV SCH ×2 (05:18→12:51)
--- NOTE | 2018-05-22 06:08 | NUR ---
RN CLOSING NOTE PT RESTING AT THIS TIME ,CONT ON TACH AND VENT SETTINGS ORDERED, NO SIGNIFICANT CHANGE. WILL ENDORSE TO AM RN.
--- NOTE | 2018-05-22 07:00 | NUR ---
FILTERER NOTES RECEIVED PT IN BED, OBTUNDED AND CONTRACTED. PT ON VENT SETTINGS MD ORDERED VIA TRACH. PT'S O2 WNL. PT TACHYCARDIC. LOW GRADE FEVER NOTED. NO S/SX OF DISTRESS. PICC LINE FLUSHED/PATENT. BED IN LOCKED/LOWEST POSITION. CALL LIGHT IN REACH. WILL CONT TO MONITOR.
[2018-05-22 08:00] VITALS: BP 120/62
[2018-05-22 08:07] LABS: CALCIUM, SERUM 9.1 mg/dL (8.5-10.1); CREATININE 0.5 mg/dL (0.6-1.3); MAGNESIUM 2.1 mg/dL (1.8-2.4); POTASSIUM 4.5 mmol/L (3.5-5.1)
[2018-05-22 08:13] LABS: BASOPHILS % (AUTO) 0.3 % (0.0-2.0); EOSINOPHILS % (AUTO) 8.1 % (0.0-6.0); HEMATOCRIT 32 % (39-51); HEMOGLOBIN 10.5 g/dL (13.5-17.5); LYMPHOCYTES # (AUTO) 1.1 /CMM (0.8-4.8); LYMPHOCYTES % (AUTO) 11.8 % (20.0-44.0); MEAN CORPUSCULAR HGB CONC 33 g/dl (31.0-36.0); MEAN CORPUSCULAR VOLUME 94 fL (80-96); MONOCYTES % (AUTO) 9.9 % (2.0-12.0); NEUTROPHILS # (AUTO) 6.8 /CMM (1.8-8.9); NEUTROPHILS % (AUTO) 69.9 % (43.0-81.0); PLATELET COUNT (AUTO) 454 /CMM (150-450); RED BLOOD CELL COUNT(AUTO) 3.41 MIL/uL (4.5-6.0); WHITE BLOOD COUNT (AUTO) 9.8 K/uL (4.3-11.0)
[2018-05-22] MEDS: Z GUARD REMEDY 2 OZ OINT TP SCH (09:00)
--- NOTE | 2018-05-22 09:09 | NUR ---
PT REC'D TRACHED ON [facility] VENT ON AC MODE. NO RESP DISTRESS OR SOB NOTED. TRACH PATENT AND SECURED. ALARMS ARE SET AND AUDIBLE. VENT PLUGGED INTO RED OUTLET. AMBU BAG BEDSIDE. WILL CONTINUE TO MONITOR. Addendum: 05/22/18 at 0910 by YOVANA DE LA GARZA RT Amended: Links added.
[2018-05-22] MEDS: LEVETIRACETAM SOL (5 ML) 100 MG/ML UDC GT SCH (09:31)
[2018-05-22] MEDS: DOCUSATE SODIUM LIQ 100 MG/10 ML UDC PO SCH ×2 (09:32→17:18)
[2018-05-22] MEDS: TIZANIDINE HCL 4 MG TABLET GT SCH ×2 (09:32→17:19)
[2018-05-22] MEDS: LORATADINE 10 MG TABLET PO SCH (09:32)
[2018-05-22] MEDS: METOPROLOL TARTRATE 25 MG TABLET GT SCH ×2 (09:34→17:19)
[2018-05-22] MEDS: TOPIRAMATE 25 MG TABLET GT SCH (09:34)
[2018-05-22] MEDS: ACETAMINOPHEN 325 MG TABLET PO PRN ×2 (09:35→17:18)
[2018-05-22] MEDS: PROSOURCE / PROSTAT (PYXIS) 30 ML UDC GT SCH ×3 (09:40→17:18)
[2018-05-22] MEDS: DAKINS QUARTER STRENGTH (0.125%) 480 ML BOTTLE TOP SCH (09:42)
[2018-05-22] MEDS: MUPIROCIN OINT 2% 22 GM TUBE SCH (09:43)
[2018-05-22] MEDS: VANCOMYCIN 1 GM in IV D5W 250 ML IV SCH (10:50)
[2018-05-22 12:00] VITALS: BP 106/67
[2018-05-22 16:00] VITALS: BP 125/69
--- NOTE | 2018-05-22 16:00 | NUR ---
PHARMACY INTAKE TECHNICIAN NOTES REPORT CALLED IN TO FARRUKH DE AT [facility].
--- NOTE | 2018-05-22 16:45 | NUR ---
NURSE CASE MANAGEMENT NOTES [facility] WAS OFFERED FLU VACCINE IN 03/03/18. PT'S FAMILY DECLINED.
[2018-05-22 17:19] VITALS: BP 125/69
--- NOTE | 2018-05-22 18:53 | NUR ---
DIRECTOR BIOLOGICS NOTES PT LEFT WITH AMBULANCE CREW/RT AND FATHER TO SNF. PT'S PICC LINE IN PLACE/GT IN PLACE/F/C IN PLACE. PT IS NOT IN DISTRESS. DISCHARGE INSTRUCTIONS/MED RECON SENT WITH PT. PT HAD NO BELONGINGS. ALL NEEDS MET.
== END 2018-05-22 18:55 | DRG 853 ==
LOC: ER 20:32 → TELE-TD 22:18 → ICU 05-12 03:13 → TELE-TD 05-13 17:48 → TELE1 05-17 09:47
PROVIDERS: ADMIT Legal Medicine; ATTEND Legal Medicine
PROC: 5A1955Z Respiratory Ventilation, Greater than 96 Consecutive Hours (ICD-10-PCS; 2018-05-11)
PROC: 0QB10ZZ Excision of Sacrum, Open Approach (ICD-10-PCS; principal; 2018-05-14)
PROC: B546ZZA Ultrasonography of Right Subclavian Vein, Guidance (ICD-10-PCS; 2018-05-16)
PROC: 05H533Z Insertion of Infusion Device into Right Subclavian Vein, Percutaneous Approach (ICD-10-PCS; 2018-05-16)
PROC: 0KBN0ZZ Excision of Right Hip Muscle, Open Approach (ICD-10-PCS; 2018-05-21)
PROC: 0KBP0ZZ Excision of Left Hip Muscle, Open Approach (ICD-10-PCS; 2018-05-21)
PROC: 02HV33Z Insertion of Infusion Device into Superior Vena Cava, Percutaneous Approach (ICD-10-PCS; 2018-05-21)
PROC: B548ZZA Ultrasonography of Superior Vena Cava, Guidance (ICD-10-PCS; 2018-05-21)
DX: A41.9 Sepsis, unspecified organism (principal); L89.154 Pressure ulcer of sacral region, stage 4; R65.21 Severe sepsis with septic shock; L89.893 Pressure ulcer of other site, stage 3; G93.1 Anoxic brain damage, not elsewhere classified; Z99.11 Dependence on respirator [ventilator] status; K92.2 Gastrointestinal hemorrhage, unspecified; N39.0 Urinary tract infection, site not specified; J96.11 Chronic respiratory failure with hypoxia; R40.3 Persistent vegetative state; Z93.0 Tracheostomy status; G40.909 Epilepsy, unspecified, not intractable, without status epilepticus; Z79.01 Long term (current) use of anticoagulants; B96.89 Other specified bacterial agents as the cause of diseases classified elsewhere; I10 Essential (primary) hypertension; Z86.718 Personal history of other venous thrombosis and embolism; B96.4 Proteus (mirabilis) (morganii) as the cause of diseases classified elsewhere; Z87.820 Personal history of traumatic brain injury; M24.542 Contracture, left hand; M24.541 Contracture, right hand; Z22.322 Carrier or suspected carrier of Methicillin resistant Staphylococcus aureus; B86 Scabies; Z93.1 Gastrostomy status; Z86.61 Personal history of infections of the central nervous system
CPT/HCPCS: 31720; 36415; 36569; 36600; 71045-TC; 80048-TC; 80076-TC; 80202-TC; 81000-TC; 83605-TC; 83735-TC; 84484-TC; 85025-TC; 85027-TC; 85730-TC; 86850-TC; 87040-TC; 87070-TC; 87081-TC; 87086-TC; 87186-TC; 93970-TC; 94002-TC; 94003-TC; 94760-TC; 94762-TC; 99082-TC; A6253; A6402; A6403; A7526; C1751; C9113; G0378; J0696; J0713; J1953; J2060; J2185; J2270; J2405; J2916; J3370; J3480; J3490; J7030; J7040; J7042; J7050; J7060

== ENCOUNTER 2018-10-28 02:38 | Inpatient (IN) | payer OTHER ==
[~2018-10-28] VITALS: Ht 160 cm; Wt 59.4 kg
[~2018-10-28 02:38] MED LIST: BACL10TA GT; DOCU50LI PO; FERR220S16 GT; HYDR-4354 PO; LACT250L14 GT; LEVE500T9 GT; METO50TA16 GT; RIVA10TA GT; SENN-168 GT; TIZA4TAB11 GT; TOPI50TA GT
--- NOTE | 2018-10-28 02:40 | NUR ---
PT NORA FROM [facility] C/O FEVER 101.1, TACHYCARDIA 145 AND VOMITING X1, ON TRACH. PT ON MONITOR IN BED 8 WITH MD AND RT AT BEDSIDE FOR EVAL. PT HAS HEEL PROTECTORS FROM FACILITY. Hanna MAYS. WILL CONTINUE TO MONITOR.
--- NOTE | 2018-10-28 02:42 | NUR ---
RECTAL TEMP 102.6. AWARE.
[2018-10-28] MEDS ORDERED: ACETAMINOPHEN 650 MG/SUPP.RECT RC ONE ×2 (02:58→03:00)
--- NOTE | 2018-10-28 02:58 | NUR ---
BLOOD DRAWN AND GIVEN TO LAB
[2018-10-28] MEDS ORDERED: IV NS 0.9% 1,000 ML BAG IV ONE (03:00)
--- NOTE | 2018-10-28 03:01 | NUR ---
RADIOLOGY AT BEDSIDE FOR XRAY
[2018-10-28 03:06] LABS: BASOPHILS % (AUTO) 0.3 % (0.0-2.0); EOSINOPHILS % (AUTO) 1.2 % (0.0-6.0); HEMATOCRIT 36 % (39-51); LYMPHOCYTES # (AUTO) 1.3 /CMM (0.8-4.8); LYMPHOCYTES % (AUTO) 8.9 % (20.0-44.0); MEAN CORPUSCULAR HGB CONC 34 g/dl (31.0-36.0); MEAN CORPUSCULAR VOLUME 88 fL (80-96); NEUTROPHILS # (AUTO) 12.3 /CMM (1.8-8.9); NEUTROPHILS % (AUTO) 82.6 % (43.0-81.0); PLATELET COUNT (AUTO) 444 /CMM (150-450); RED BLOOD CELL COUNT(AUTO) 4.08 MIL/uL (4.5-6.0); WHITE BLOOD COUNT (AUTO) 14.9 K/uL (4.3-11.0)
[2018-10-28] MEDS ORDERED: ONDANSETRON HCL/PF 4 MG/2 ML VIAL ONE ×3 (03:10→05:52)
--- NOTE | 2018-10-28 03:10 | NUR ---
TECH AT BEDSIDE FOR EKG
[2018-10-28 03:13] LABS: CALCIUM, SERUM 9.3 mg/dL (8.5-10.1); CARBON DIOXIDE 27 mmol/L (21-32); CHLORIDE 102 mmol/L (98-107); CREATININE 0.7 mg/dL (0.6-1.3); GLUCOSE 97 mg/dL (74-106); POTASSIUM 3.1 mmol/L (3.5-5.1); SODIUM SERUM 140 mmol/L (136-145); UREA NITROGEN, BLOOD 15 mg/dL (7-18)
[2018-10-28 03:28] LABS: ALANINE AMINOTRANSFERASE 36 U/L (12-78); ALBUMIN 3.6 g/dL (3.4-5.0); ALKALINE PHOSPHATASE 92 U/L (46-116); ASPARTATE AMINOTRANSFERASE 15 U/L (15-37); B-TYPE NATRIURETIC PEPTIDE 215 PG/ML (0-125); BILIRUBIN,DIRECT 0.1 mg/dL (0.0-0.2); BILIRUBIN,TOTAL 0.3 mg/dL (0.2-1.0); TOTAL PROTEIN, SERUM 8.2 g/dL (6.4-8.2)
--- NOTE | 2018-10-28 03:37 | NUR ---
UNABLE TO INSERT ORTIZ CATH. AWARE. CONDOM CATH PLACED. NO URINE RETURN. WILL CONTINUE TO MONITOR.
[2018-10-28] MEDS ORDERED: ONDANSETRON HCL/PF 4 MG/2 ML VIAL IV ONE ×3 (04:00→06:00)
--- NOTE | 2018-10-28 04:22 | NUR ---
URINE COLLECTED AND SENT TO LAB
[2018-10-28] MEDS ORDERED: CEFTRIAXONE 1GM BAG (ER ONLY) 1 GM/50 ML PIGGYBACK IV ONE (04:30)
[2018-10-28] MEDS ORDERED: AZITHROMYCIN 500 MG in IV D5W 250 ML IV ONE (04:30)
--- NOTE | 2018-10-28 04:37 | NUR ---
PAGED DR. PASCAL
[2018-10-28 04:51] LABS: APPEARANCE,URINE Cloudy (CLEAR); BILIRUBIN,URINE SMALL (NEGATIVE); BLOOD, URINE Large Ery/uL (NEGATIVE); COLOR,URINE Dark (YELLOW); KETONES,URINE 40 (NEGATIVE); LEUKOCYTE ESTERASE ,URINE Moderate (NEGATIVE); NITRITE, URINE Negative (NEGATIVE); PROTEIN,URINE 100 mg/dl (NEGATIVE); UGLUCOSE Negative (NEGATIVE); UROBILINOGEN,URINE 0.2 EU/dL (0.2)
--- NOTE | 2018-10-28 04:51 | NUR ---
PT VOMITTED. MD AWARE. PER VERBAL MD ORDER, WILL ADMINISTER ZOFRAN 4MG IV X1 NOW
[2018-10-28 04:55] LABS: PH,URINE >9.0 (5.0-8.0)
--- NOTE | 2018-10-28 04:59 | NUR ---
Rowena kwon in [facility] - 10/28/18 at 0548 by NITZA BED ASSIGNMENT [id number]
--- NOTE | 2018-10-28 05:09 | NUR ---
PAGED DR. PASCAL
--- NOTE | 2018-10-28 05:25 | NUR ---
SPOKE TO DR CASAS OVER THE PHONE AND OBTAINED TELEPHONE ADMITTING ORDERS. NOTED
[2018-10-28 05:39] LABS: RBC,URINE 21-50 /HPF (0-2); WBC,URINE TOO NUMEROUS TO COUN /HPF (0-3)
[2018-10-28 05:40] LABS: BACTERIA,URINE Moderate /HPF (None Seen); SQUAMOUS EPITHELIAL CELL,UR Rare /HPF (None Seen)
--- NOTE | 2018-10-28 05:40 | NUR ---
RECTAL TEMP 100.6. MD AWARE.
[2018-10-28] MEDS ORDERED: AZITHROMYCIN 500 MG VIAL ONE (05:44)
[2018-10-28] MEDS ORDERED: CEFTRIAXONE 1GM BAG (ER ONLY) 50 ML IV ONE (05:44)
--- NOTE | 2018-10-28 05:48 | NUR ---
BED ASSIGNMENT 117-2
--- NOTE | 2018-10-28 05:51 | NUR ---
REPORT GIVEN TO FARRUKH SCHERER FOR TWIN
[2018-10-28 06:15] VITALS: BP 160/89
--- NOTE | 2018-10-28 06:15 | NUR ---
VEENA RN NOTE PATIENT RECEIVED FROM ER IN [facility]. PATIENT VOMITTING UP TEA, REDIISH, ORANGE LIQUID. PATIENT PLACED ON VENT WITH RT PRESENT. PATIENT NOVERBAL, CONTRACTED, EYES OPENING. PATIENT NOTED TO BE FEBRILE ON ADMISSION, COOLING MEASURES IMPLEMTED. PATIENT TACHY MD AWARE. CRISTELAN HAS 20 G IN L AHND AND LEFT FOOT, HAND NOT ABLE TO BE FLUSHED HIGH RESISTANCE. FOOT RUNNING ZITHROMAX FROM ER. RN WILL ENDORSE POC TO AM FOR TWIN. SAFETY PRECAUTIONS IN PLACE. RN WILL CONTINUE TO MONITOR.
--- NOTE | 2018-10-28 06:45 | NUR ---
VEENA CHADWICK NOTE PATIENT GIVEN ICE BATH AND COOL MEASURES IMPLEMENTED. Addendum: 10/28/18 at 0646 by GILMER LEAL RN Amended: Links added.
[2018-10-28] MEDS ORDERED: MORPHINE SULFATE INJ 2 MG/ML DISP.SYRIN IVP PRN (07:00)
[2018-10-28] MEDS ORDERED: ONDANSETRON HCL/PF 4 MG/2 ML VIAL IV PRN (07:00)
[2018-10-28] MEDS ORDERED: FEE PK DOSING 1 MIN EA MC ONE (07:21)
[2018-10-28 08:00] VITALS: BP 137/80
--- NOTE | 2018-10-28 08:15 | NUR ---
RN NOTE: DR. PASCAL PRESENT IN THE UNIT AND HE WAS INFORMED OF THE PATIENT'S INTERMITTENT PROJECTILE VOMITING SINCE ADMISSION IN ER. MD GAVE ORDERS, NOTED AND CARRIED OUT.
[2018-10-28] MEDS ORDERED: ENALAPRILAT INJ (1.25 MG/ML) 1.25 MG/ML VIAL IV PRN (08:30)
[2018-10-28] MEDS: IV NS 0.9% 1,000 ML IV PRN (08:34)
[2018-10-28] MEDS: MEROPENEM 1 G in IV NS 0.9% 100 ML IV SCH ×3 (08:59→20:31)
[2018-10-28] MEDS: DOCUSATE SODIUM LIQ 100 MG/10 ML UDC GT SCH ×2 (09:00→16:04)
[2018-10-28] MEDS ORDERED: VANCOMYCIN 1 GM in IV D5W 250 ML IV SCH (09:00)
[2018-10-28] MEDS: METOPROLOL TARTRATE 50 MG TABLET GT SCH ×2 (09:00→17:00)
[2018-10-28] MEDS ORDERED: RIVAROXABAN 10 MG TABLET GT SCH (09:00)
[2018-10-28] MEDS ORDERED: LEVETIRACETAM SOL (5 ML) 100 MG/ML UDC GT SCH (09:00)
[2018-10-28] MEDS: HYDROCODONE/APAP 10/325MG 1 EA TABLET PO SCH ×2 (09:00→16:04)
[2018-10-28] MEDS: TIZANIDINE HCL 4 MG TABLET GT SCH ×2 (09:00→16:04)
[2018-10-28] MEDS ORDERED: FAMOTIDINE/PF INJ 20 MG/2 ML VIAL IV SCH (09:00)
[2018-10-28] MEDS ORDERED: LEVETIRACETAM (250 MG) 250 MG TABLET PO SCH (09:00)
[2018-10-28] MEDS: TOPIRAMATE 25 MG TABLET GT SCH ×2 (09:00→21:00)
[2018-10-28] MEDS: ENOXAPARIN SODIUM 40 MG/0.4 ML DISP.SYRIN SQ SCH (09:00)
[2018-10-28] MEDS: FERROUS SULFATE (325 MG) 325 MG/TAB TABLET GT SCH (09:00)
[2018-10-28] MEDS: FAMOTIDINE/PF INJ 20 MG/2 ML VIAL IV SCH ×2 (09:30→20:38)
[2018-10-28 09:52] LABS: ABG BASE EXCESS -1.1 mmol/L; ABG PCO2 28.9 mmHg (35.0-45.0); ABG PH 7.486 (7.350-7.450); ABG PO2 89.7 mmHg (75.0-100.0); AaDO2 162.3 mmHg; COHb 0.5 % (0.5-1.5); MetHb 0.4 % (0.0-1.5); O2Hb 96.1 % (94.0-97.0); PEEP,BG 5 cm H2O; SITE, ABG Right Radial; VT, ABG 500 mL
[2018-10-28] MEDS: LEVETIRACETAM (500MG) 500 MG in IV NS 0.9% 100 ML IV SCH ×2 (11:00→23:29)
[2018-10-28] MEDS: ACETAMINOPHEN 650 MG/SUPP.RECT RC PRN ×3 (11:23→23:22)
[2018-10-28] MEDS: POTASSIUM CL. PREMIX PERIPHER. 50 ML IV SCH ×4 (11:31→16:04)
[2018-10-28] MEDS: BACLOFEN (10 MG) 10 MG TABLET GT SCH ×3 (11:34→23:41)
[2018-10-28] MEDS ORDERED: IPRA0.2S9 IH ×2 (11:52)
[2018-10-28] MEDS ORDERED: AMIN30LI27 GT (11:52)
[2018-10-28] MEDS ORDERED: ACET160S GT (11:52)
[2018-10-28] MEDS ORDERED: ALBU2.5V38 IH (11:52)
[2018-10-28] MEDS ORDERED: BISA10SU61 RC (11:52)
[2018-10-28] MEDS ORDERED: LANS30CA56 GT (11:52)
[2018-10-28] MEDS ORDERED: ALBU1.257 IH (11:52)
[2018-10-28] MEDS ORDERED: MULT9LIQ6 GT (11:52)
[2018-10-28] MEDS ORDERED: NA P133E RC (11:52)
[2018-10-28] MEDS ORDERED: HYDR-4384 GT (11:52)
[2018-10-28] MEDS ORDERED: MAGN2400 GT (11:52)
[2018-10-28] MEDS ORDERED: METO25TA6 GT (11:52)
[2018-10-28] MEDS ORDERED: ZINC220C6 GT (11:52)
[2018-10-28] MEDS ORDERED: CHLO473M3 MM (11:52)
[2018-10-28 12:00] VITALS: BP 132/82
[2018-10-28] MEDS ORDERED: SILVER NITRATE APPLICATOR 1 EA BOX TP ONE (15:00)
[2018-10-28] MEDS ORDERED: LIDOCAINE 1%-EPI 1:100,000 20 ML VIAL TP ONE (15:00)
[2018-10-28] MEDS: HYDROGEL DRESSING 90 GM TUBE TP SCH ×2 (15:59→21:34)
[2018-10-28 16:00] VITALS: BP 136/85
--- NOTE | 2018-10-28 16:10 | NUR ---
RN NOTE: PATIENT'S FATHER, LOCO PRESENT AT THE BEDSIDE AND SIGNED THE INFORMED CONSENT FOR THE SACRAL DEBRIDEMENT. UPDATES REGARDING THE PATIENT'S CONDITION AND PLAN OF CARE WAS DISCUSSED WITH THE PATIENT'S FATHER LOCO.
--- NOTE | 2018-10-28 16:20 | NUR ---
RN NOTE: DR. PASCAL WAS INFORMED THAT THE PATIENT'S GASTRIC CONTENT COLLECTED FROM THE WALL SUCTION WAS COFFEE GROUND IN COLOR AND PATIENT WAS STILL FEBRILE. COOLING MEASURES WERE STILL IMPLEMENTED, WILL ADD COOLING BLANKET AND A GI CONSULT TO SEE THE PATIENT WAS ORDERED
[2018-10-28 17:04] LABS: BASOPHILS % (AUTO) 0.3 % (0.0-2.0); EOSINOPHILS % (AUTO) 0.1 % (0.0-6.0); HEMATOCRIT 34 % (39-51); HEMOGLOBIN 11.6 g/dL (13.5-17.5); LYMPHOCYTES # (AUTO) 1.3 /CMM (0.8-4.8); LYMPHOCYTES % (AUTO) 9.3 % (20.0-44.0); MEAN CORPUSCULAR HGB CONC 34 g/dl (31.0-36.0); MEAN CORPUSCULAR VOLUME 89 fL (80-96); MONOCYTES # (AUTO) 1.1 /CMM (0.1-1.30); MONOCYTES % (AUTO) 7.4 % (2.0-12.0); NEUTROPHILS # (AUTO) 11.8 /CMM (1.8-8.9); NEUTROPHILS % (AUTO) 82.9 % (43.0-81.0); PLATELET COUNT (AUTO) 435 /CMM (150-450); RED BLOOD CELL COUNT(AUTO) 3.82 MIL/uL (4.5-6.0); WHITE BLOOD COUNT (AUTO) 14.3 K/uL (4.3-11.0)
--- NOTE | 2018-10-28 17:45 | NUR ---
RN NOTE: DR. PASCAL WAS INFORMED OF THE REPEAT CBC RESULT H/H= 11.6/34. MD WAS ALSO INFORMED THAT THE PATIENT'S HEART RATE WAS 120-140'S. WILL ADMINISTER MORPHINE 2MG IVP PER MD ORDER TO PROVIDE COMFORT TO THE PATIENT.
[2018-10-28 19:28] LABS: IRON, SERUM 35 ug/dl (50-175); TOTAL IRON BINDING CAPACITY 207 ug/dl (250-450)
[2018-10-28 19:42] LABS: FERRITIN 175 ng/mL (8-388)
--- NOTE | 2018-10-28 19:45 | NUR ---
RN NOTE: BEDSIDE REPORT GIVEN TO PM SHIFT NURSE FOR CONTINUITY OF CARE. PATIENT'S HEART RATE 100 STILL ON COOLING BLANKET AND RECTAL PROBE IN PLACED. RECTAL TEMP SHOWED 100.3F. AWAITING FOR FUENTES BYRNE NP (GI CONSULT) TO SEE THE PATIENT TONIGHT.
[2018-10-28 20:00] VITALS: BP 111/72
--- NOTE | 2018-10-28 20:00 | NUR ---
VEENA NOTES RECEIVED PT W/ EYES OPEN,DOES NOT TRACK,DOES NOT FOLLOW COMMANDS.ON VENT PER TRACH W/ 40% FIO2,SAT 98-99%.SUCTIONED FOR COPIOUS AMT OF THICK YELLOW SECRETIONS.
[2018-10-28] MEDS: VANCOMYCIN 0.75 GM in IV D5W 250 ML IV SCH (21:32)
[2018-10-28] MEDS: SUCRALFATE 1 G/10 ML UDC GT SCH (21:35)
[2018-10-28] MEDS: SENNOSIDES 8.6 MG TABLET GT SCH (21:35)
--- NOTE | 2018-10-28 23:25 | NUR ---
VEENA NOTES TYLENOL 650MG SUPP.INSERTED RECTALLY FOR TEMP.OF 101.2.OH HYPOTHERMIA BLANKET.SUCTIONED FOR COPIOUS THICK YELLOW SECRETIONS.
[2018-10-29] VITALS: BP 106/60
--- NOTE | 2018-10-29 02:00 | NUR ---
VEENA NOTES TEMP=1O0.1.TYLENOL EFFECTIVE
[2018-10-29] MEDS: IV NS 0.9% 1,000 ML IV PRN (03:33)
[2018-10-29 04:00] VITALS: BP 128/80
[2018-10-29] MEDS: MEROPENEM 1 G in IV NS 0.9% 100 ML IV SCH ×3 (04:47→20:50)
[2018-10-29] MEDS: BACLOFEN (10 MG) 10 MG TABLET GT SCH ×3 (05:19→18:28)
--- NOTE | 2018-10-29 05:32 | NUR ---
VEENA NOTES GT DRAINED 300MONITOR LIGHT BROWN DRAINAGE.CONTINUES TO SUCTION THICK-THIN YELLOW SECRETIONS.MONITOR SHOW SINUS RHYTHM.
--- NOTE | 2018-10-29 06:51 | NUR ---
WOUND CARE CONSULT WOUND CARE RECEIVED CONSULT FOR SACRAL WOUND. WOUND CARE WILL DEFER CONSULT AND TREATMENT PLANS TO PLASTIC SURGICAL TEAM WHO ARE CURRENTLY FOLLOWING THIS PATIENT. PATIENT WITH EBONI AT 8, ALL PRESSURE ULCER PREVENTION MEASURES ARE NOTED TO BE IN PLACE AT THIS TIME. WILL SEE PRN.
[2018-10-29 06:52] LABS: BASOPHILS # (AUTO) 0.1 /CMM (0.0-0.2); BASOPHILS % (AUTO) 0.4 % (0.0-2.0); HEMATOCRIT 30 % (39-51); HEMOGLOBIN 10.2 g/dL (13.5-17.5); LYMPHOCYTES # (AUTO) 1.1 /CMM (0.8-4.8); LYMPHOCYTES % (AUTO) 8.1 % (20.0-44.0); MEAN CORPUSCULAR HGB CONC 34 g/dl (31.0-36.0); MEAN CORPUSCULAR VOLUME 91 fL (80-96); MONOCYTES % (AUTO) 7.7 % (2.0-12.0); NEUTROPHILS # (AUTO) 10.9 /CMM (1.8-8.9); NEUTROPHILS % (AUTO) 82.8 % (43.0-81.0); PLATELET COUNT (AUTO) 373 /CMM (150-450); RED BLOOD CELL COUNT(AUTO) 3.33 MIL/uL (4.5-6.0); WHITE BLOOD COUNT (AUTO) 13.1 K/uL (4.3-11.0)
[2018-10-29] MEDS ORDERED: Z GUARD REMEDY 2 OZ OINT TP PRN (07:00)
[2018-10-29 07:02] LABS: CALCIUM, SERUM 8.7 mg/dL (8.5-10.1); CREATININE 0.7 mg/dL (0.6-1.3)
[2018-10-29] MEDS: SUCRALFATE 1 G/10 ML UDC GT SCH ×4 (07:30→21:14)
--- NOTE | 2018-10-29 07:30 | NUR ---
RN NOTE: RECEIVED PATIENT IN BED, ON MECHANICAL VENTILATOR SATURATING 98-100% WITH CURRENT VENT SETTING. PATIENT WAS OBTUNDED, SPONTANEOUSLY OPEN HIS EYES. ON AUTO SERVICER SR HR= 90. (R) UA MIDLINE INTACT AND PATENT INFUSING NS @ 100ML/HR. (R) FOOT IV SITE NOTED PATENT AND INTACT. HOB ELEVATED. BED ALARMED AND LOCKED AT ALL TIMES. GT ON LOW INTERMITTENT WALL SUCTION NO GASTRIC RESIDUAL WAS NOTED. NO S/S OF ACTIVE BLEEDING. COOLING BLANKET IN PLACED AND ON CONTINUOUS RECTAL TEMP MONITORING CURRENT TEMP 99.6F. CALL LIGHT WITHIN REACH. NEEDS ANTICIPATED.
[2018-10-29 08:00] VITALS: BP 120/86
[2018-10-29] MEDS: FERROUS SULFATE (325 MG) 325 MG/TAB TABLET GT SCH (08:17)
[2018-10-29] MEDS: DOCUSATE SODIUM LIQ 100 MG/10 ML UDC GT SCH ×2 (08:17→17:07)
[2018-10-29] MEDS: HYDROCODONE/APAP 10/325MG 1 EA TABLET PO SCH (08:17)
[2018-10-29] MEDS: TIZANIDINE HCL 4 MG TABLET GT SCH ×2 (08:17→17:12)
[2018-10-29] MEDS: TOPIRAMATE 25 MG TABLET GT SCH ×2 (08:17→21:14)
[2018-10-29] MEDS: FAMOTIDINE/PF INJ 20 MG/2 ML VIAL IV SCH ×2 (08:57→21:14)
[2018-10-29] MEDS: VANCOMYCIN 0.75 GM in IV D5W 250 ML IV SCH ×3 (08:58→21:32)
[2018-10-29] MEDS: METOPROLOL TARTRATE 50 MG TABLET GT SCH ×2 (09:00→17:09)
--- NOTE | 2018-10-29 09:49 | NUR ---
RN NOTE: INFORMED DR. PASCAL REGARDING THE PATIENT'S CURRENT H/H 10. AND PATIENT WAS GETTING A SACRAL DEBRIDEMENT TODAY. MD WAS INFORMED IF OK TO ADMINISTER LOVENOX. AWAITING FOR MD'S RESPONSE.
[2018-10-29] MEDS: HYDROGEL DRESSING 90 GM TUBE TP SCH ×2 (09:51→21:14)
[2018-10-29] MEDS: Z GUARD REMEDY 2 OZ OINT TP SCH (09:52)
[2018-10-29] MEDS: ENOXAPARIN SODIUM 40 MG/0.4 ML DISP.SYRIN SQ SCH (10:00)
[2018-10-29] MEDS ORDERED: POTASSIUM CHLORIDE 20 MEQ POWDER PACKET GT SCH (10:00)
[2018-10-29] MEDS: LEVETIRACETAM (500MG) 500 MG in IV NS 0.9% 100 ML IV SCH ×2 (10:20→23:02)
[2018-10-29] MEDS: POTASSIUM CL. PREMIX PERIPHER. 50 ML IV SCH ×6 (11:01→16:36)
[2018-10-29 12:00] VITALS: BP 116/78
--- NOTE | 2018-10-29 13:10 | NUR ---
RN NOTE: SILVER NITRATE AND LIDOCAINE WAS NOT ADMINISTERED. BEDSIDE SACRAL WOUND DEBRIDEMENT WAS DONE BY Jonah/ MAL JUARES. PATIENT TOLERATED IT WELL. MINIMAL BLEEDING WAS NOTED. PICTURE WAS TAKEN FOR S/P SACRAL WOUND DEBRIDEMENT. SIGNED AND FILED TO PATIENT'S CHART.
--- NOTE | 2018-10-29 14:09 | NUR ---
RN NOTE: RECEIVED AN ORDER FROM DR. PASCAL TO START GT FEEDING AT JEVITY 1.2 @ 20ML/HR X 24 HR AND DC GT LOW INTERMITTENT WALL SUCTION. ORDER, NOTED AND CARRIED OUT. SPOKE WITH ROCHELLE WARE, MOTHER AND GAVE HER AN UPDATE REGARDING THE PATIENT'S CONDITION AND NEW ORDER FROM DR. PASCAL.
[2018-10-29] MEDS: JEVITY 1.2 CAL 1,000 ML BOTTLE GT SCH (15:53)
[2018-10-29 16:00] VITALS: BP 123/76
--- NOTE | 2018-10-29 16:04 | NUR ---
RN NOTE: INFORMED DR. PASCAL REGARDING THE PATIENT'S NORCO ORDER FROM THE [facility]. MD WAS INFORMED THAT THE PATIENT'S NORCO ORDER FROM THE SNF WAS UPDATED ON THE HOME MEDS LIST. PER MD, CONTINUE NORCO 5-325 MG VIA GT 3X/DAY AND DC THE PREVIOUS ORDER FOR NORCO. ORDER, NOTED AND CARRIED OUT.
[2018-10-29] MEDS: HYDROCODONE/APAP 5/325MG 1 EACH TABLET GT SCH (17:11)
--- NOTE | 2018-10-29 19:21 | NUR ---
TD RN NOTE: RECEIVED PT ON BED OBTUNDED WITH NO APPARENT DISTRESS NOTED. NO FACIAL GRIMACING OR ANY SIGNS OF PAIN NOTED. ON [facility] VENT, SETTINGS ORDERED. NO SOB NOTED. ON TELE MONITOR SINUS RHYTHM HR 80BPM. GT INTACT AND PATENT, JEVITY RUNNING AT 20ML/HR. 40ML RESIDUAL NOTED AT THIS TIME. RIGHT UPPER ARM MIDLINE AND RIGHT FOOT #20 INTACT AND PATENT, IVF INFUSING WELL. CONDOM CATH INTACT AND DRAINING WELL. KEPT CLEAN, DRY AND COMFORTABLE. SAFETY AND FALL PRECAUTIONS OBSERVED AND MAINTAINED. WILL CONTINUE TO MONITOR PT.
--- NOTE | 2018-10-29 19:22 | NUR ---
RN NOTE: BEDSIDE REPORT GIVEN TO PM SHIFT NURSE FOR CONTINUITY OF CARE. PATIENT ON GT FEEDING OF JEVITY 1.2 @20ML/HR AND NO RESIDUAL NOTED. HOB ELEVATED. COOLING BLANKET STILL IMPLEMENTED AND CONTINUOUS RECTAL THERMOMETER WAS IN USED TO MONITOR PATIENT'S TEMPERATURE. LATEST TEMPERATURE WAS 99.6F.
[2018-10-29 20:00] VITALS: BP 144/80
[2018-10-29] MEDS: SENNOSIDES 8.6 MG TABLET GT SCH (21:14)
[2018-10-29] MEDS: ACETAMINOPHEN 325 MG TABLET PO PRN (23:03)
[2018-10-30] VITALS: BP 109/48
[2018-10-30] MEDS: BACLOFEN (10 MG) 10 MG TABLET GT SCH ×4 (00:32→17:11)
[2018-10-30 04:00] VITALS: BP 119/58
[2018-10-30] MEDS: MEROPENEM 1 G in IV NS 0.9% 100 ML IV SCH ×3 (04:12→21:34)
[2018-10-30] MEDS: VANCOMYCIN 0.75 GM in IV D5W 250 ML IV SCH ×3 (04:49→22:38)
[2018-10-30 06:31] LABS: CALCIUM, SERUM 8.6 mg/dL (8.5-10.1); CREATININE 0.7 mg/dL (0.6-1.3); POTASSIUM 3.6 mmol/L (3.5-5.1)
[2018-10-30 06:36] LABS: BASOPHILS % (AUTO) 0.5 % (0.0-2.0); EOSINOPHILS % (AUTO) 7.6 % (0.0-6.0); HEMATOCRIT 27 % (39-51); HEMOGLOBIN 8.9 g/dL (13.5-17.5); LYMPHOCYTES # (AUTO) 1.2 /CMM (0.8-4.8); LYMPHOCYTES % (AUTO) 14.1 % (20.0-44.0); MEAN CORPUSCULAR HGB CONC 34 g/dl (31.0-36.0); MEAN CORPUSCULAR VOLUME 91 fL (80-96); MONOCYTES # (AUTO) 0.9 /CMM (0.1-1.30); NEUTROPHILS # (AUTO) 5.6 /CMM (1.8-8.9); NEUTROPHILS % (AUTO) 66.8 % (43.0-81.0); PLATELET COUNT (AUTO) 337 /CMM (150-450); RED BLOOD CELL COUNT(AUTO) 2.91 MIL/uL (4.5-6.0); WHITE BLOOD COUNT (AUTO) 8.4 K/uL (4.3-11.0)
--- NOTE | 2018-10-30 07:15 | NUR ---
RN INITIAL NOTES PATIENT IN BED, ASLEEP AND OBTUNDED. ON VENT, SATING WELL AT 100%. ON TELE MONITOR, ST AT 100. HAS A CONDOM CATH. ON GTF JEVITY AT 20ML/HR. HAS A RIGHT FOOT #20 WITH NS RUNNING AT 100ML/HR. HAS A LEFT HAND #20 SALINE LOCKED AND RIGHT UA MIDLINE, SALINE LOCKED. PENDING STOOL OB. PATIENT HAD NO BM LAST NIGHT, WILL MONITOR TODAY. BED LOCKED AND IN LOW POSITION. WILL CONTINUE TO MONITOR PATIENT.
[2018-10-30 08:00] VITALS: BP 120/72
[2018-10-30] MEDS: SUCRALFATE 1 G/10 ML UDC GT SCH ×4 (08:36→21:33)
[2018-10-30] MEDS: FERROUS SULFATE (325 MG) 325 MG/TAB TABLET GT SCH (08:37)
[2018-10-30] MEDS: TIZANIDINE HCL 4 MG TABLET GT SCH ×2 (08:37→17:11)
[2018-10-30] MEDS: FAMOTIDINE/PF INJ 20 MG/2 ML VIAL IV SCH ×2 (08:37→21:33)
[2018-10-30] MEDS: DOCUSATE SODIUM LIQ 100 MG/10 ML UDC GT SCH ×2 (08:37→17:10)
[2018-10-30] MEDS: TOPIRAMATE 25 MG TABLET GT SCH ×2 (08:37→21:33)
[2018-10-30] MEDS: LEVETIRACETAM SOL (5 ML) 100 MG/ML UDC GT SCH ×2 (08:37→21:33)
[2018-10-30] MEDS: METOPROLOL TARTRATE 50 MG TABLET GT SCH ×2 (08:38→17:12)
[2018-10-30] MEDS: HYDROCODONE/APAP 5/325MG 1 EACH TABLET GT SCH ×3 (08:38→17:11)
[2018-10-30] MEDS: HYDROGEL DRESSING 90 GM TUBE TP SCH ×2 (08:48→21:34)
[2018-10-30] MEDS: Z GUARD REMEDY 2 OZ OINT TP SCH (09:07)
[2018-10-30 12:00] VITALS: BP 133/85
[2018-10-30] MEDS: JEVITY 1.2 CAL 1,000 ML BOTTLE GT SCH (15:43)
[2018-10-30] MEDS: IV NS 0.9% 1,000 ML IV PRN (15:44)
[2018-10-30 16:00] VITALS: BP 105/52
[2018-10-30] MEDS: LACTOBACILLUS RHAMNOSUS GG 1 EACH CAP.SPRINK PO SCH (17:11)
--- NOTE | 2018-10-30 18:48 | NUR ---
RN CLOSING NOTES Pt is in iram obtunded, on Vent sating will on 100% on teley moniotr SR, Pt has a condom cath with 150mL output , OB stool still pending, On G-tube feeding, Increased to 30 from 20mL/Hr, has a right upper arm midline, right foot alex 20., L hand alex 20, per MD hold blood thinners, Bed locked and in low position will endorse to gameplay engineer for TWIN
[2018-10-30 20:00] VITALS: BP 104/63
[2018-10-30] MEDS: SENNOSIDES 8.6 MG TABLET GT SCH (21:33)
[2018-10-31] VITALS: BP_SYST 120; BP_SYST 126; BP_DIAS 72; BP_DIAS 77
[2018-10-31] MEDS: BACLOFEN (10 MG) 10 MG TABLET GT SCH ×4 (00:46→17:04)
[2018-10-31 04:00] VITALS: BP 132/83
[2018-10-31] MEDS: IV NS 0.9% 1,000 ML IV PRN (05:01)
[2018-10-31] MEDS: MEROPENEM 1 G in IV NS 0.9% 100 ML IV SCH (05:06)
[2018-10-31] MEDS: VANCOMYCIN 0.75 GM in IV D5W 250 ML IV SCH (06:21)
[2018-10-31 06:30] LABS: BASOPHILS % (AUTO) 0.3 % (0.0-2.0); HEMATOCRIT 29 % (39-51); HEMOGLOBIN 9.7 g/dL (13.5-17.5); LYMPHOCYTES # (AUTO) 1.2 /CMM (0.8-4.8); LYMPHOCYTES % (AUTO) 15.6 % (20.0-44.0); MEAN CORPUSCULAR HGB CONC 34 g/dl (31.0-36.0); MEAN CORPUSCULAR VOLUME 90 fL (80-96); MONOCYTES # (AUTO) 0.6 /CMM (0.1-1.30); MONOCYTES % (AUTO) 7.5 % (2.0-12.0); NEUTROPHILS # (AUTO) 5.3 /CMM (1.8-8.9); NEUTROPHILS % (AUTO) 67.6 % (43.0-81.0); PLATELET COUNT (AUTO) 338 /CMM (150-450); WHITE BLOOD COUNT (AUTO) 7.9 K/uL (4.3-11.0)
[2018-10-31 06:49] LABS: CALCIUM, SERUM 8.5 mg/dL (8.5-10.1); CREATININE 0.6 mg/dL (0.6-1.3); POTASSIUM 3.4 mmol/L (3.5-5.1)
--- NOTE | 2018-10-31 07:10 | NUR ---
RN INITIAL NOTES PATIENT IN BED, OBTUNDED ONLY OPENS EYES. NO SIGNS OF ANY PAIN NOR SOB DISTRESS. ON VENT, SATING 100%. HAS A CONDOM CATH WITH CLEAR AND YELLOW URINE. ON GTF RUNNING AT 30 ML/HR. GOAL IS 65. HAS IVF RUNNING NS AT 100 ML/HR AT PATIENTS RIGHT FOOT #20. ALSO HAS LEFT HAND #20 SL AND RIGHT UPPER ARM MIDLINE SL. HOLD BLOOD THINNERS ORDERED. BED LOCKED AND IN LOW POSITION. WILL CONT TO MONITOR
[2018-10-31 08:00] VITALS: BP 130/63
[2018-10-31] MEDS: SUCRALFATE 1 G/10 ML UDC GT SCH ×4 (08:30→21:50)
[2018-10-31] MEDS: DOCUSATE SODIUM LIQ 100 MG/10 ML UDC GT SCH ×2 (08:30→16:06)
[2018-10-31] MEDS: FERROUS SULFATE (325 MG) 325 MG/TAB TABLET GT SCH (08:31)
[2018-10-31] MEDS: LACTOBACILLUS RHAMNOSUS GG 1 EACH CAP.SPRINK PO SCH ×2 (08:31→16:07)
[2018-10-31] MEDS: TOPIRAMATE 25 MG TABLET GT SCH ×2 (08:31→21:51)
[2018-10-31] MEDS: LEVETIRACETAM SOL (5 ML) 100 MG/ML UDC GT SCH ×2 (08:31→21:50)
[2018-10-31] MEDS: FAMOTIDINE/PF INJ 20 MG/2 ML VIAL IV SCH ×2 (08:31→21:51)
[2018-10-31] MEDS: TIZANIDINE HCL 4 MG TABLET GT SCH ×2 (08:31→16:06)
[2018-10-31] MEDS: HYDROCODONE/APAP 5/325MG 1 EACH TABLET GT SCH ×3 (08:31→16:06)
[2018-10-31] MEDS: METOPROLOL TARTRATE 50 MG TABLET GT SCH ×2 (08:32→16:07)
[2018-10-31] MEDS: HYDROGEL DRESSING 90 GM TUBE TP SCH ×2 (08:36→22:05)
[2018-10-31] MEDS: Z GUARD REMEDY 2 OZ OINT TP SCH (08:36)
[2018-10-31] MEDS: ACETAMINOPHEN 325 MG TABLET PO PRN ×2 (08:43→21:50)
[2018-10-31] MEDS ORDERED: POTASSIUM CHLORIDE 20 MEQ POWDER PACKET GT SCH (09:00)
[2018-10-31 12:00] VITALS: BP_SYST 95; BP_SYST 99; BP_DIAS 56
--- NOTE | 2018-10-31 12:45 | NUR ---
RN NOTE DR PASCAL AT BEDSIDE, IV ANBX WAS CHANGED TO LEVAQUIN DUE TO URINE CX RESULTS. FAMILY AT BEDSIDE ALSO AWARE.
[2018-10-31] MEDS: LEVOFLOXACIN 500 MG /D5W 100ML 500 MG in PREMIX 1 EA IV SCH (13:53)
[2018-10-31 16:00] VITALS: BP 119/71
[2018-10-31] MEDS: JEVITY 1.2 CAL 1,000 ML BOTTLE GT SCH (16:04)
[2018-10-31] MEDS ORDERED: VANCOMYCIN 1 GM in IV D5W 250 ML IV SCH (17:00)
--- NOTE | 2018-10-31 18:51 | NUR ---
RN CLOSING NOTE PATIENT IN BED, OBTUNDED. ALL MEDS GIVEN. NO SIGNS OF ANY PAIN NOR SOB AT THIS TIME. AFEBRILE THIS MORNING, 101F. WAS GIVEN COLD BED BATH AND TYLENOL. GTF INCREASED TO 40 ML/HR FROM 30. RESIDUAL ONLY 20 ML. PER MENDY RASCON PLAN SOON. MAYBE TOMORROW OR FRIDAY. FAMILY IS AWARE. BED ON LOWEST POSITION. WILL ENDORSE TO NOC SHIFT FOR TWIN
[2018-10-31 20:00] VITALS: BP 115/70
--- NOTE | 2018-10-31 20:00 | NUR ---
PT RCVD TRACH'D ON MECHANICAL VENT WITH CHARTED SETTINGS. SX DONE. PT TRACH IS PATENT AND SECURE. VENT PLUGGED INTO RED OUTLET. ALARMS ARE ON AND AUDIBLE. AMGU BAG AT BEDSIDE. NO SOB NOTED. Addendum: 10/31/18 at 2000 by RUBA OSPINA RT Amended: Links added.
--- NOTE | 2018-10-31 20:00 | NUR ---
RN INITIAL NOTES RECEIVED PATIENT'S REPORT FROM AM RN. RECEIVED PATIENT IN BED, OBTUNDED ONLY OPENS EYES. NO SIGNS OF ANY PAIN NOR SOB DISTRESS. ON VENT, SPO2 SATING 100%. HAS A CONDOM CATH WITH CLEAR AND YELLOW URINE. ON GTF RUNNING AT 40 ML/HR. GOAL IS 65. RIGHT FOOT #20 IV LINE IS PATIENT AND INTACT. ALSO HAS LEFT HAND #20 SL AND RIGHT UPPER ARM MIDLINE SL. HOLD BLOOD THINNERS ORDERED. BED LOCKED AND IN LOW POSITION. WILL CONT TO MONITOR.
[2018-10-31] MEDS: SENNOSIDES 8.6 MG TABLET GT SCH (21:51)
[2018-11-01] VITALS: BP 126/77
[2018-11-01] MEDS: BACLOFEN (10 MG) 10 MG TABLET GT SCH ×4 (01:04→17:37)
[2018-11-01 04:00] VITALS: BP 124/74
[2018-11-01 06:52] LABS: CALCIUM, SERUM 8.9 mg/dL (8.5-10.1); CREATININE 0.6 mg/dL (0.6-1.3); POTASSIUM 3.7 mmol/L (3.5-5.1)
--- NOTE | 2018-11-01 07:35 | NUR ---
RN OPENING NOTES RECEIVED PT IN BED, AWAKE, OBTUNDED, OPENS EYES. PT ON VENT, TOLERATING SETTING. PT NOT EXHIBITING ANY PAIN OR DISCOMFORT AT THIS TIME. ON TELE MONITORING WITH SB WITH HR 59. PER NIGHT NURSE GT FEEDING GOAL IS JEVITY 65ML/HR BUT SHE HASN'T INCREASED IT BECAUSE OF LOW GRADE FEVER LAST NIGHT AND WITH RESIDUAL OF 30 CC ON HER SHIFT. PT ON GOING FEEDING AT 40ML/HR. PIV LEFT HAND G20 AND CAT MIDLINE BOTH ON SL, FLUSHED WITH NS INTACT AND OPERATIONAL. PT KEPT COMFORTABLE. CALL LIGHT AND FLUID KEPT WITHIN REACH. PT'S BED IN LOWEST, LOCKED POSITION WITH SR X2. WILL CONTINUE PLAN OF CARE.
[2018-11-01 08:00] VITALS: BP 130/68
[2018-11-01] MEDS: SUCRALFATE 1 G/10 ML UDC GT SCH ×3 (08:17→17:37)
[2018-11-01] MEDS: FAMOTIDINE/PF INJ 20 MG/2 ML VIAL IV SCH (08:19)
[2018-11-01] MEDS: TOPIRAMATE 25 MG TABLET GT SCH (08:20)
[2018-11-01] MEDS: LEVETIRACETAM SOL (5 ML) 100 MG/ML UDC GT SCH (08:20)
[2018-11-01] MEDS: DOCUSATE SODIUM LIQ 100 MG/10 ML UDC GT SCH ×2 (08:20→16:17)
[2018-11-01] MEDS: LACTOBACILLUS RHAMNOSUS GG 1 EACH CAP.SPRINK PO SCH ×2 (08:20→16:17)
[2018-11-01] MEDS: FERROUS SULFATE (325 MG) 325 MG/TAB TABLET GT SCH (08:20)
[2018-11-01] MEDS: TIZANIDINE HCL 4 MG TABLET GT SCH ×2 (08:21→16:17)
[2018-11-01] MEDS: HYDROCODONE/APAP 5/325MG 1 EACH TABLET GT SCH ×3 (08:21→16:17)
[2018-11-01] MEDS: METOPROLOL TARTRATE 50 MG TABLET GT SCH ×2 (08:21→16:18)
[2018-11-01] MEDS: Z GUARD REMEDY 2 OZ OINT TP SCH (08:22)
[2018-11-01] MEDS: HYDROGEL DRESSING 90 GM TUBE TP SCH (08:23)
[2018-11-01] MEDS: ACETAMINOPHEN 325 MG TABLET PO PRN ×2 (09:53→16:23)
--- NOTE | 2018-11-01 10:56 | NUR ---
RN NOTES PT SEEN AND EVALUATED BY DR. PASCAL WITH MOM OF PT PRESENT AT BEDSIDE. /NAIDA ORDERED US OF ABDOMEN AND RENAL ULTRASOUND, IF RESULTS COMES BACK OKAY. PT CAN GET DISCHARGE TODAY BACK TO [facility]. ALSO STATED PT OKAY TO KEEP MIDLINE TO CAT WHEN GETS DISCHARGE. PT WILL CONTINUE ANTIBIOTICS AT SUBACUTE. CN/SOON AWARE.
[2018-11-01 12:00] VITALS: BP 100/55
[2018-11-01] MEDS: LEVOFLOXACIN 500 MG /D5W 100ML 500 MG in PREMIX 1 EA IV SCH (12:41)
--- NOTE | 2018-11-01 15:30 | NUR ---
RN NOTES DR PASCAL MADE AWARE OF ULTRASOUND RESULT. AND ORDERED CLEARED FOR DISCHARGE. PT'S MOTHER PRESENT AT BEDSIDE MADE AWARE WELL.
--- NOTE | 2018-11-01 15:39 | NUR ---
CENTRAL SERVICE TECH NOTES REPORT GIVEN TO [facility] NURSE PETER. PT'S MOTHER PRESENT AT BEDSIDE SIGNED DISCHARGE INSTRUCTIONS AND INVENTORY LIST FORM.
[2018-11-01 16:00] VITALS: BP 117/65
[2018-11-01 16:18] VITALS: BP 117/65
[2018-11-01] MEDS: JEVITY 1.2 CAL 1,000 ML BOTTLE GT SCH (16:31)
--- NOTE | 2018-11-01 17:48 | NUR ---
ELEMENTARY SCHOOL MUSIC TEACHER NOTES PT DISCHARGED BACK TO [facility]/SUB ACUTE. REPORT GIVEN TO PETER/RN VIA PHONE. PT ON VENT WITH SAME SETTING, RT PRESENT AT THE TIME OF DISCHARGE AND TRANSPORT. PT ACCOMPANIED BY MOTHER WELL AND AWARE OF PLAN OF CARE WHEN HE GETS BACK TO [facility]. DISCHARGE PAPERS AND INVENTORY LIST SIGNED BY MOTHER. ALL SKIN ISSUES PICTURES TAKEN AND FILED IN THE CHART. PIV MIDLINE G18 TO CAT, FLUSHED WITH NS, INTACT AND OPERATIONAL. GT RESIDUAL OF 10ML. ALL NEEDS AND CARE PROVIDED. VITAL SIGNS STABLE AND RECORDED. CN/ZANE AND /NAIDA AWARE OF DISCHARGE. PT LEFT THE UNIT AT 1645, WITH 2 SODA JERKER ASSIST AND 1 RT. PT TRANSFERRED TO [facility] AND WILL BE TRANSPORTED BY AMBULANCE.
== END 2018-11-01 17:45 | DRG 853 ==
LOC: ER 02:38 → TELE1 05:51 → TELE-TD 06:36 → TELE1 10-29 11:10 → TELE-TD 10-29 18:40 → TELE1 10-30 08:58
PROVIDERS: ADMIT Legal Medicine; ATTEND Legal Medicine
PROC: 05HB33Z Insertion of Infusion Device into Right Basilic Vein, Percutaneous Approach (ICD-10-PCS; 2018-10-28)
PROC: 5A1955Z Respiratory Ventilation, Greater than 96 Consecutive Hours (ICD-10-PCS; 2018-10-28)
PROC: 0KBP0ZZ Excision of Left Hip Muscle, Open Approach (ICD-10-PCS; principal; 2018-10-29)
PROC: 0KBN0ZZ Excision of Right Hip Muscle, Open Approach (ICD-10-PCS; principal; 2018-10-29)
DX: A41.9 Sepsis, unspecified organism (principal); J96.20 Acute and chronic respiratory failure, unspecified whether with hypoxia or hypercapnia; L89.154 Pressure ulcer of sacral region, stage 4; J69.0 Pneumonitis due to inhalation of food and vomit; R53.2 Functional quadriplegia; N39.0 Urinary tract infection, site not specified; G93.1 Anoxic brain damage, not elsewhere classified; K92.2 Gastrointestinal hemorrhage, unspecified; Z99.11 Dependence on respirator [ventilator] status; R40.3 Persistent vegetative state; R65.20 Severe sepsis without septic shock; Z86.718 Personal history of other venous thrombosis and embolism; I10 Essential (primary) hypertension; Z87.820 Personal history of traumatic brain injury; Z91.013 Allergy to seafood; Z79.899 Other long term (current) drug therapy; R13.10 Dysphagia, unspecified; Z93.0 Tracheostomy status; Z93.1 Gastrostomy status; Z86.61 Personal history of infections of the central nervous system; G40.909 Epilepsy, unspecified, not intractable, without status epilepticus; D64.9 Anemia, unspecified; B96.4 Proteus (mirabilis) (morganii) as the cause of diseases classified elsewhere
CPT/HCPCS: 31720; 36415; 36569; 36600; 71045-TC; 74018; 76700-TC; 80048-TC; 80076-TC; 80202-TC; 81000-TC; 82728-TC; 82803-TC; 83540-TC; 83605-TC; 83735-TC; 83880; 84484-TC; 85025-TC; 85730-TC; 87040-TC; 87081-TC; 87086-TC; 87186-TC; 94003-TC; 94760-TC; 94762-TC; A4216; A4349; A4623; A6248; A6253; A7526; G0378; J0456; J0696; J1953; J1956; J2185; J2270; J2405; J3370; J3480; J3490; J7030; J7060

== ENCOUNTER 2018-12-28 02:19 | Inpatient (IN) | payer OTHER ==
[~2018-12-28] VITALS: Ht 165.1 cm; Wt 64.9 kg
[2018-12-28] VITALS (12 sets, daily range): BP systolic 112–155; BP diastolic 69–114
[~2018-12-28 02:19] MED LIST changes: +ACET160S GT; +ALBU1.257 IH; +ALBU2.5V38 IH; +AMIN30LI27 GT; +BISA10SU61 RC; +CHLO473M3 MM; -FERR220S16 GT; +FERR220S2 GT; +HYDR-4384 GT; +IPRA0.2S9 IH; +LANS30CA56 GT; +MAGN2400 GT; +METO25TA6 GT; -METO50TA16 GT; +MULT9LIQ6 GT; +NA P133E RC; +ZINC220C6 GT
--- NOTE | 2018-12-28 02:37 | NUR ---
[facility] 85% AND RECTAL BLEED X30MIN. PT AWAKE, VENT DEPENDENT, TRACH IN PLACE. NOTED W/ BLOOD IN TRACH. PT WAS PLACED ON A MONITOR .
[2018-12-28 02:55] LABS: BASOPHILS # (AUTO) 0.1 /CMM (0.0-0.2); BASOPHILS % (AUTO) 0.5 % (0.0-2.0); EOSINOPHILS % (AUTO) 2.3 % (0.0-6.0); HEMATOCRIT 36 % (39-51); LYMPHOCYTES # (AUTO) 0.8 /CMM (0.8-4.8); LYMPHOCYTES % (AUTO) 6.1 % (20.0-44.0); MEAN CORPUSCULAR HGB CONC 33 g/dl (31.0-36.0); MEAN CORPUSCULAR VOLUME 89 fL (80-96); MONOCYTES # (AUTO) 0.9 /CMM (0.1-1.30); MONOCYTES % (AUTO) 7.1 % (2.0-12.0); NEUTROPHILS # (AUTO) 11.2 /CMM (1.8-8.9); PLATELET COUNT (AUTO) 336 /CMM (150-450); RED BLOOD CELL COUNT(AUTO) 4.05 MIL/uL (4.5-6.0); WHITE BLOOD COUNT (AUTO) 13.3 K/uL (4.3-11.0)
[2018-12-28 03:09] LABS: ALANINE AMINOTRANSFERASE 52 U/L (12-78); ALBUMIN 3.5 g/dL (3.4-5.0); ALKALINE PHOSPHATASE 96 U/L (46-116); ASPARTATE AMINOTRANSFERASE 33 U/L (15-37); BILIRUBIN,DIRECT 0.1 mg/dL (0.0-0.2); BILIRUBIN,TOTAL 0.5 mg/dL (0.2-1.0); CALCIUM, SERUM 9.5 mg/dL (8.5-10.1); CARBON DIOXIDE 24 mmol/L (21-32); CHLORIDE 99 mmol/L (98-107); CREATININE 0.7 mg/dL (0.6-1.3); GLUCOSE 93 mg/dL (74-106); POTASSIUM 3.2 mmol/L (3.5-5.1); SODIUM SERUM 138 mmol/L (136-145); TOTAL PROTEIN, SERUM 8.2 g/dL (6.4-8.2); UREA NITROGEN, BLOOD 17 mg/dL (7-18)
--- NOTE | 2018-12-28 03:15 | NUR ---
PT RESTING IN BED W/ NO S/S OF DISTRESS, VSS . WILL CONT TO MONITOR,
[2018-12-28] MEDS ORDERED: ACETAMINOPHEN 650 MG/20.3 ML UDC ONE (03:16)
[2018-12-28] MEDS ORDERED: ACETAMINOPHEN 650 MG/20.3 ML UDC GT ONE (03:30)
[2018-12-28 03:41] LABS: APPEARANCE,URINE SL CLOUDY (CLEAR); BILIRUBIN,URINE NEGATIVE (NEGATIVE); BLOOD, URINE 3+ Ery/uL (NEGATIVE); COLOR,URINE YELLOW (YELLOW); KETONES,URINE 2+ (NEGATIVE); LEUKOCYTE ESTERASE ,URINE 1+ (NEGATIVE); NITRITE, URINE POSITIVE (NEGATIVE); PH,URINE 7.5 (5.0-8.0); PROTEIN,URINE 2+ mg/dl (NEGATIVE); UGLUCOSE NEGATIVE (NEGATIVE); UROBILINOGEN,URINE 0.2 EU/dL (0.2)
--- NOTE | 2018-12-28 04:31 | NUR ---
AN 18G PIV LINE STARTED ON R SHOULDER W/ GOOD BLOOD DRAW
--- NOTE | 2018-12-28 04:49 | NUR ---
CALLED DR. PASCAL, INSTRUCTED TO CALL [facility] FOR ADMISSIONS AT [facility]. DR. WHELAN PAGED. WAITING FOR CALL BACK
[2018-12-28] MEDS ORDERED: VANCOMYCIN 1 GM VIAL ONE (04:50)
[2018-12-28] MEDS ORDERED: CEFEPIME 1 GM VIAL ONE (04:50)
[2018-12-28 04:56] LABS: BACTERIA,URINE Few /HPF (None Seen); SQUAMOUS EPITHELIAL CELL,UR Rare /HPF (None Seen); WBC,URINE TOO NUMEROUS TO COUN /HPF (0-3)
[2018-12-28 04:57] LABS: RBC,URINE 51-80 /HPF (0-2)
[2018-12-28] MEDS ORDERED: CEFEPIME 1 GM in IV D5W 50 ML IV ONE (05:00)
[2018-12-28] MEDS ORDERED: VANCOMYCIN 1 GM in IV D5W 250 ML IV ONE (05:00)
--- NOTE | 2018-12-28 05:02 | NUR ---
CALLED RN SUP FOR TELE BED.
[2018-12-28] MEDS ORDERED: IV NS 0.9% 1,000 ML IV PRN (05:10)
[2018-12-28] MEDS ORDERED: MAG HYDROX/AL HYDROX/SIMETH 30 ML UDC PO PRN (05:30)
[2018-12-28] MEDS ORDERED: BISACODYL SUPP (10 MG) 10 MG/SUPP.RECT SUPP.RECT RC PRN (05:30)
[2018-12-28] MEDS ORDERED: Medication Not On Formulary EA (Magnesium Hydroxide (Milk Of Magnesia) 2,400 MG) GT PRN (05:30)
[2018-12-28] MEDS ORDERED: MAGNESIUM HYDROXIDE 30 ML UDC PO PRN (05:30)
[2018-12-28] MEDS ORDERED: IPRATROPIUM NEB FS 0.5 MG/2.5 ML AMPUL.NEB IH PRN (05:30)
[2018-12-28] MEDS ORDERED: HYDROCODONE/APAP 10/325MG 1 EA TABLET PO PRN (05:30)
[2018-12-28] MEDS ORDERED: NA PHOS,M-B/NA PHOS,DI-BA 1 EA ENEMA RC PRN (05:30)
[2018-12-28] MEDS ORDERED: ACETAMINOPHEN 160 MG/5 ML GT PRN ×2 (05:30)
[2018-12-28] MEDS ORDERED: Z GUARD REMEDY 2 OZ OINT TP PRN (05:30)
[2018-12-28] MEDS ORDERED: ACETAMINOPHEN 325 MG TABLET PO PRN (05:30)
--- NOTE | 2018-12-28 05:54 | NUR ---
PT ASSIGNED TO TELE BED 118-2 AFTER SHIFT CHANGE.
[2018-12-28] MEDS: BACLOFEN (10 MG) 10 MG TABLET GT SCH ×3 (06:00→17:17)
[2018-12-28] MEDS ORDERED: IV NS 0.9% 1,000 ML BAG IV ONE ×2 (06:00→06:30)
--- NOTE | 2018-12-28 06:05 | NUR ---
NEW ORDER FROM DR CABELLO IV NS 1 LITER X ONE NOW. GIVEN THROUGH L FOOT 18 G END TIME: 90
[2018-12-28] MEDS ORDERED: ZOSYN IVPB 3.375 G in IV D5W 50ml IV ONE (06:45)
--- NOTE | 2018-12-28 07:41 | NUR ---
report given to the floor nurse
--- NOTE | 2018-12-28 07:43 | NUR ---
intravenous antibiotics given as ordered
[2018-12-28] MEDS: CHLORHEXIDINE GLUCONATE 15 ML UDC MM SCH ×2 (08:00→17:17)
[2018-12-28] MEDS ORDERED: FEE PK DOSING 1 MIN EA MC ONE (08:14)
--- NOTE | 2018-12-28 08:30 | NUR ---
RN notes patient received from ER placed gambling monitor noted febrile at 101.9, cooling measures provided pt given tylenol in ER. placed on vent by RT, tolerated settings. pt with multiple episodes of emesis, per md prn medications to be given and continue to monitor. iv access to left foot and right upper arm patent and intact no redness or infiltration noted.
[2018-12-28] MEDS ORDERED: FERROUS SULFATE UDC 300 MG/5 ML UDC GT SCH (09:00)
[2018-12-28] MEDS: ESOMEPRAZOLE MAGNESIUM 40 MG SUSPDR.PKT GT SCH ×2 (09:00→17:00)
[2018-12-28] MEDS: DOCUSATE SODIUM LIQ 100 MG/10 ML UDC PO SCH ×2 (09:00→17:00)
[2018-12-28] MEDS: HYDROCODONE/APAP 5/325MG 1 EACH TABLET GT SCH ×3 (09:00→17:00)
[2018-12-28] MEDS ORDERED: LEVETIRACETAM SOL (5 ML) 100 MG/ML UDC GT SCH (09:00)
[2018-12-28] MEDS ORDERED: FERROUS SULFATE - FOR SA ONLY 330 MG/7.5 ML UDC GT SCH (09:00)
[2018-12-28] MEDS ORDERED: POTASSIUM CHLORIDE 20 MEQ TAB.PRT.SR PO SCH (10:30)
[2018-12-28] MEDS: ONDANSETRON HCL/PF 4 MG/2 ML VIAL IVP PRN ×2 (10:37→17:30)
[2018-12-28] MEDS ORDERED: POTASSIUM CHLORIDE 20 MEQ POWDER PACKET PO SCH (10:49)
[2018-12-28] MEDS: IPRATROPIUM NEB FS 0.5 MG/2.5 ML AMPUL.NEB IH SCH ×3 (10:57→19:51)
[2018-12-28] MEDS: ALBUTEROL FS 2.5 MG/3 ML VIAL.NEB IH SCH ×3 (10:57→19:51)
[2018-12-28] MEDS: TOPIRAMATE 25 MG TABLET GT SCH ×2 (11:09→20:47)
[2018-12-28] MEDS: ZINC SULFATE 220 MG CAPSULE GT SCH (11:09)
[2018-12-28] MEDS: TIZANIDINE HCL 4 MG TABLET GT SCH ×2 (11:09→20:58)
[2018-12-28] MEDS: METOPROLOL TARTRATE 25 MG TABLET GT SCH ×2 (11:11→20:47)
--- NOTE | 2018-12-28 12:30 | NUR ---
RN NOTES MULTIPLE COLLABORATION WITH MD, WITH CONTINUED ORDERS PLEASE SEE MAR
[2018-12-28] MEDS: IV NS 0.9% 1,000 ML IV PRN ×2 (13:01→16:13)
[2018-12-28] MEDS: ACETAMINOPHEN 650 MG/SUPP.RECT RC PRN ×2 (13:08→17:17)
[2018-12-28] MEDS ORDERED: PIPERACILLIN /TAZOBACTAM 3.375 G in IV D5W 100 ML IV SCH (14:00)
--- NOTE | 2018-12-28 14:14 | NUR ---
FREE LANCE ARTIST NOTE RECEIVED REPORT FROM VEENA NURSE ERICH.
--- NOTE | 2018-12-28 14:30 | NUR ---
RN NOTES PATIENT CONTINUES TO BE FEBRILE, WITH RECTAL TEMP OF 104, PRN RECTAL TYLENOL GIVEN PT TO BE TRANSFERRED TO ICU FOR FURTHER MONITORING WILL CONTINUE TO MONITOR AND GIVE REPORT
--- NOTE | 2018-12-28 14:50 | NUR ---
RN NOTES REPORT GIVEN TO POWER TRUCK DRIVER AND TRANSPORTING RN, PT NEEDING PICTURE OF SACRAL AREA, GT TO SUCTION PER MD AND COOL BLANKET
[2018-12-28] MEDS: VANCOMYCIN 1 GM in IV D5W 250 ML IV SCH ×2 (16:15→21:48)
[2018-12-28] MEDS: DAKINS QUARTER STRENGTH (0.125%) 480 ML BOTTLE TOP SCH (16:16)
--- NOTE | 2018-12-28 16:36 | NUR ---
RN NOTE 1500: Received report from Lavern CHADWICK for TWIN re: this patient, admitted in am for PNA. Will transfer to ICU due to fever 104, ST 150's, still vomiting despite having Zofran. GT to LIS, noted with dark brown residuals. On cooling measures. With tarhce to vent, noted with gagging at times. Per report, unable to turn or lay flat for long period of time due to continuous vomiting, unable to take sacral wound pictures at this time, will continue to monitor. PIVs intact, on NS @ 250 for 6 hours(until 1900) and will change to 150 mL/hr. Neck XR to follow up. 1600: On cooling blanket, temp 102.1, ST 135. GT to LIS, still with minimal to moderate amount of brownish residuals. Kept HOB elevated. 1630: Tried calling mother to get consent for sacral wound debridement but no answer, left message and call back number.
[2018-12-28] MEDS: MEROPENEM 1 G in IV NS 0.9% 100 ML IV SCH ×2 (16:47→22:53)
[2018-12-28] MEDS: MULTIVITAMINS,THERAGRAN 1 UDTAB TABLET GT SCH (17:17)
--- NOTE | 2018-12-28 18:41 | NUR ---
RT END OF THE SHIFT REPORT, PT. 23 Y OLD MALE PT. RECEIVED @ 0900 AM TRACH'D [place] # 8 ON [facility]. VENT WITH NOTED AC MODE. NO VENT CHANGES DONE T/O DAY, SECOND TX'S NOT GIVEN DUE TO TACHYCARDIA, RN INFORMED AT THE BEDSIDE. PT. TRANSFERRED TO ICU TO ROOM 256 WITH SAME SETTINGS, PT SUX'D LARGE AMT. BLOOD TINGED SECRETIONS. B/S RHONCHI BILATERALLY, EQUAL CHEST RISE NOTED. VENT IS PLUGGED INTO RED OUTLET. ALARMS ARE SET AND FUNCTIONAL. HME CHANGED SEVERAL TIMES, AMBU BAG AT BEDSIDE. TRACH CARE DONE, INNER CANNULA CHANGED EXTRA TRACH AT THE BEDSIDE, WILL CONTINUE TO MONITOR. REPORT WILL PASS TO PM SHIFT. Addendum: 12/28/18 at 1844 by MERARI KING RT Amended: Links added.
--- NOTE | 2018-12-28 20:00 | NUR ---
WORKERS COMPENSATION ANALYST - NOTES - patient received in bed on telemetry sinus tachy 130s noted febrile at 102.2, cooling measures provided. pt on vent by RT, tolerated settings. pt with multiple episodes of emesis, per md prn medications to be given and continue to monitor. iv access to left foot and right upper arm patent and intact no redness or infiltration noted.
[2018-12-28] MEDS: LEVETIRACETAM (500MG) 500 MG in IV NS 0.9% 100 ML IV SCH (20:47)
[2018-12-28] MEDS: SENNOSIDES 8.6 MG TABLET GT SCH (21:46)
[2018-12-29] VITALS (25 sets, daily range): BP systolic 90–150; BP diastolic 46–109
[2018-12-29] MEDS: BACLOFEN (10 MG) 10 MG TABLET GT SCH ×5 (00:52→23:23)
[2018-12-29] MEDS: IV NS 0.9% 1,000 ML IV PRN ×3 (01:10→18:18)
[2018-12-29] MEDS: IPRATROPIUM NEB FS 0.5 MG/2.5 ML AMPUL.NEB IH SCH ×4 (02:06→19:39)
[2018-12-29] MEDS: ALBUTEROL FS 2.5 MG/3 ML VIAL.NEB IH SCH ×4 (02:06→19:39)
[2018-12-29 05:04] LABS: BASOPHILS % (AUTO) 0.2 % (0.0-2.0); EOSINOPHILS % (AUTO) 0.2 % (0.0-6.0); HEMATOCRIT 27 % (39-51); HEMOGLOBIN 9.2 g/dL (13.5-17.5); LYMPHOCYTES # (AUTO) 1.3 /CMM (0.8-4.8); LYMPHOCYTES % (AUTO) 12.9 % (20.0-44.0); MEAN CORPUSCULAR HGB CONC 34 g/dl (31.0-36.0); MEAN CORPUSCULAR VOLUME 89 fL (80-96); MONOCYTES # (AUTO) 1.1 /CMM (0.1-1.30); NEUTROPHILS # (AUTO) 7.5 /CMM (1.8-8.9); NEUTROPHILS % (AUTO) 75.7 % (43.0-81.0); PLATELET COUNT (AUTO) 322 /CMM (150-450); RED BLOOD CELL COUNT(AUTO) 3.01 MIL/uL (4.5-6.0); WHITE BLOOD COUNT (AUTO) 9.9 K/uL (4.3-11.0)
[2018-12-29 05:16] LABS: CALCIUM, SERUM 8.4 mg/dL (8.5-10.1); CREATININE 0.6 mg/dL (0.6-1.3); PHOSPHORUS 2.3 mg/dL (2.5-4.9)
[2018-12-29 05:21] LABS: POTASSIUM 2.7 mmol/L (3.5-5.1)
[2018-12-29] MEDS: VANCOMYCIN 1 GM in IV D5W 250 ML IV SCH ×3 (05:42→21:26)
[2018-12-29] MEDS: CHLORHEXIDINE GLUCONATE 15 ML UDC MM SCH ×2 (06:08→17:18)
[2018-12-29] MEDS: MEROPENEM 1 G in IV NS 0.9% 100 ML IV SCH ×3 (06:08→23:19)
[2018-12-29] MEDS: POTASSIUM CL. PREMIX PERIPHER. 50 ML IV SCH ×4 (06:56→10:29)
--- NOTE | 2018-12-29 07:10 | NUR ---
GLOVE PARTS CUTTER INITIAL NOTES Rec'd pt on bed, not in any distress, awake/obtunded. No SOB while on MV via trach, sating at 100%. ST on telemonitor. Has IV line access on RH G22 & L foot G18 w/ NS x 150 cc/hr infusing well. Has GT connected to LIS, draining to clear/brownish output. Rectal probe in place for cont Addendum: 12/29/18 at 0948 by LUNA WOODS RN monitoring d/t fever. Safety precaution in place w/ bed in lowest & locked pos. Call light placed w/in reach. Will cont to monitor & attend pt needs. 0730 Placed condom catheter for I/O monitoring.
--- NOTE | 2018-12-29 07:42 | NUR ---
PT RECEIVED IN ICU TRACHED ON MECHANICAL VENT W/ NOTED SETTINGS. VENT IN RED OUTLET, AMBUBAG AT BEDSIDE, VENT ALARMS CHECKED AND AUDIBLE. PT SX'ED AND LAVAGED PRN, BS EQUAL DIMINISHED. TRACH TUBE PATENT, SECURED, CLEAN AND DRY. NO RESP DISTRESS NOTED. MEDS GIVEN INLINE PER MD ORDER. PLAN IS TO CONTINUE CARE UNDER CURRENT MD ORDERS AND MONITOR FOR CHANGES. Addendum: 12/29/18 at 0743 by AZEEM SAENZ RT Amended: Links added.
[2018-12-29] MEDS: DOCUSATE SODIUM LIQ 100 MG/10 ML UDC PO SCH ×2 (08:18→17:18)
[2018-12-29] MEDS: FERROUS SULFATE UDC 300 MG/5 ML UDC GT SCH (08:18)
[2018-12-29] MEDS: TOPIRAMATE 25 MG TABLET GT SCH ×2 (08:18→21:02)
[2018-12-29] MEDS: METOPROLOL TARTRATE 25 MG TABLET GT SCH ×2 (08:19→21:01)
[2018-12-29] MEDS: ZINC SULFATE 220 MG CAPSULE GT SCH (08:19)
[2018-12-29] MEDS: DAKINS QUARTER STRENGTH (0.125%) 480 ML BOTTLE TOP SCH (08:20)
[2018-12-29] MEDS: TIZANIDINE HCL 4 MG TABLET GT SCH ×2 (08:20→21:02)
[2018-12-29] MEDS: ESOMEPRAZOLE MAGNESIUM 40 MG SUSPDR.PKT GT SCH ×2 (08:20→17:20)
[2018-12-29] MEDS: HYDROCODONE/APAP 5/325MG 1 EACH TABLET GT SCH ×3 (08:20→17:18)
[2018-12-29] MEDS ORDERED: METOCLOPRAMIDE HCL 10 MG/10 ML UDC GT PRN (08:30)
--- NOTE | 2018-12-29 08:32 | NUR ---
Pt still having high gastric residuals from GT, fever 100.3. Per Dr. Kelvin abarca order Tylenol 650 mg q6h PRN via GT & Reglan 10 mg q6h PRN via GT. Addendum: 12/29/18 at 1556 by LUNA WOODS RN Correction: Reglan 10mg q6h via GT.
[2018-12-29] MEDS: LACTOBACILLUS RHAMNOSUS GG 1 EACH CAP.SPRINK PO SCH ×2 (08:42→17:18)
[2018-12-29] MEDS: ACETAMINOPHEN 650 MG/20.3 ML UDC NG PRN ×2 (08:43→21:26)
--- NOTE | 2018-12-29 09:41 | NUR ---
ABG results relayed to stephen Burrell at 1lpm. Addendum: 12/29/18 at 0941 by LUNA WOODS RN ERROR: DISREGARD ABOVE NOTES.
[2018-12-29] MEDS: LEVETIRACETAM (500MG) 500 MG in IV NS 0.9% 100 ML IV SCH ×2 (10:58→21:05)
--- NOTE | 2018-12-29 11:45 | NUR ---
Pt seen & examined by Dr. Ybarra, per MD may start slowly on GTF. Monitor for tolerance.
[2018-12-29] MEDS ORDERED: NEUTRA PHOS 1 POWD.PACKET GT ONE (12:00)
[2018-12-29] MEDS: METOCLOPRAMIDE HCL 10 MG/10 ML UDC GT SCH ×2 (17:17→23:23)
[2018-12-29] MEDS: MULTIVITAMINS,THERAGRAN 1 UDTAB TABLET GT SCH (17:18)
--- NOTE | 2018-12-29 18:43 | NUR ---
PIECER CLOSING NOTES Pt resting comfortably on his bed, remains obtunded. Tolerating MV setting via trach, sating at 100%. SR on telemonitor. IV line access on CAT midline, RH G20, L ft G18 kept patent & intact. NS x 150 cc/hr infusing well on CAT midline. Started on GTF at 10 cc/hr as ordered. Safety precaution kept in place at all times w/ bed in lowest & locked pos. Call light placed w/in reach. Will endorse to PM RN for TWIN.
[2018-12-29] MEDS: JEVITY 1.2 CAL 1,000 ML BOTTLE GT PRN (18:47)
--- NOTE | 2018-12-29 20:58 | NUR ---
RECEIVED PT ON VENT, TRACHED PTX 8. NO RESP DISTRESS NOTED. TOLERATING SETTINGS. SX'D FOR SML AMT OF THICK WHITE SECRETIONS. 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 VENT ALARMS SET AND AUDIBLE. AMBU BAG AT BEDSIDE. WILL CONTINUE TO MONITOR. Addendum: 12/29/18 at 2100 by ALOK OLIVAREZ RT Amended: Links added.
[2018-12-29] MEDS: SENNOSIDES 8.6 MG TABLET GT SCH (21:04)
--- NOTE | 2018-12-29 22:10 | NUR ---
Rn initial notes Pt resting comfortably on his bed, obtunded. Tolerating MV setting via trach, sating at 100%. SR on telemonitor. IV line access on CAT midline, RH G20, L ft G18 kept patent & intact. NS x 150 cc/hr infusing well on CAT midline. GTF at 10 cc/hr. All safety precautions in place at all times, bed in lowest & locked pos. Call light with in reach. Will cont to monitor.
[2018-12-30] VITALS (25 sets, daily range): BP systolic 96–134; BP diastolic 55–94
[2018-12-30] MEDS: ALBUTEROL FS 2.5 MG/3 ML VIAL.NEB IH SCH ×4 (01:37→19:35)
[2018-12-30] MEDS: IPRATROPIUM NEB FS 0.5 MG/2.5 ML AMPUL.NEB IH SCH ×4 (01:37→19:35)
[2018-12-30 05:04] LABS: BASOPHILS % (AUTO) 0.4 % (0.0-2.0); EOSINOPHILS % (AUTO) 6.5 % (0.0-6.0); HEMATOCRIT 29 % (39-51); HEMOGLOBIN 9.7 g/dL (13.5-17.5); LYMPHOCYTES # (AUTO) 1.2 /CMM (0.8-4.8); LYMPHOCYTES % (AUTO) 14.2 % (20.0-44.0); MEAN CORPUSCULAR HGB CONC 34 g/dl (31.0-36.0); MEAN CORPUSCULAR VOLUME 90 fL (80-96); MONOCYTES # (AUTO) 0.8 /CMM (0.1-1.30); MONOCYTES % (AUTO) 8.9 % (2.0-12.0); PLATELET COUNT (AUTO) 234 /CMM (150-450); RED BLOOD CELL COUNT(AUTO) 3.22 MIL/uL (4.5-6.0); WHITE BLOOD COUNT (AUTO) 8.6 K/uL (4.3-11.0)
[2018-12-30 05:17] LABS: CALCIUM, SERUM 8.5 mg/dL (8.5-10.1); CREATININE 0.5 mg/dL (0.6-1.3); POTASSIUM 3.1 mmol/L (3.5-5.1)
[2018-12-30 05:18] LABS: MAGNESIUM 1.8 mg/dL (1.8-2.4); PHOSPHORUS 2.5 mg/dL (2.5-4.9)
[2018-12-30] MEDS: METOCLOPRAMIDE HCL 10 MG/10 ML UDC GT SCH ×3 (05:38→17:47)
[2018-12-30] MEDS: BACLOFEN (10 MG) 10 MG TABLET GT SCH ×3 (05:38→17:47)
[2018-12-30] MEDS: VANCOMYCIN 1 GM in IV D5W 250 ML IV SCH ×3 (05:40→22:11)
[2018-12-30] MEDS: ACETAMINOPHEN 650 MG/20.3 ML UDC NG PRN (05:59)
[2018-12-30] MEDS: IV NS 0.9% 1,000 ML IV PRN ×3 (05:59→21:17)
--- NOTE | 2018-12-30 06:44 | NUR ---
ORE MINER BLASTING CLOSING NOTES Pt resting comfortably on his bed, remains obtunded. Tolerating MV setting via trach, sating at 100%. SR on telemonitor. IV line access on CAT midline, RH G20, L ft G18 kept patent & intact. NS x 150 cc/hr infusing well on CAT midline. GTF at 20 cc/hr Safety precaution kept in place at all times w/ bed in lowest & locked pos. Call light placed w/in reach. Will endorse to AM RN for TWIN.
[2018-12-30] MEDS: CHLORHEXIDINE GLUCONATE 15 ML UDC MM SCH ×2 (07:00→17:47)
--- NOTE | 2018-12-30 07:05 | NUR ---
COUNTER CLERK INITIAL NOTS PT RECEIVED ON MECHANICAL VENTILATOR. SETTINGS ASSESSED FOR ACCURACY. PT TOLERATING CURRENT SETTINGS WELL. NO SOB OR ACUTE SIGNS OF DISTRESS NOTED. BREATHING EVEN AND UNLABORED. PT OBTUNDENT. SR NOTED ON MONITOR. RIGHT UPPER ARM MIDLINE NOTED TO BE PATENT AND INTACT. NO REDNESS OR SIGNS OF INFILTRATION NOTED. PT TOLERATING NS INFUSION AT SET RATE WELL. BED IN LOW LOCKED POSITION, SIDE RAILS UP X3. WILL CONTINUE TO MONITOR
[2018-12-30] MEDS: MEROPENEM 1 G in IV NS 0.9% 100 ML IV SCH (07:44)
[2018-12-30] MEDS: LEVETIRACETAM (500MG) 500 MG in IV NS 0.9% 100 ML IV SCH (09:29)
[2018-12-30] MEDS ORDERED: D5W IV PRN (09:30)
[2018-12-30] MEDS: ESOMEPRAZOLE MAGNESIUM 40 MG SUSPDR.PKT GT SCH ×2 (09:30→17:48)
[2018-12-30] MEDS: TIZANIDINE HCL 4 MG TABLET GT SCH ×2 (09:30→21:14)
[2018-12-30] MEDS ORDERED: POTASSIUM CHLORIDE IV PRN (09:30)
[2018-12-30] MEDS: TOPIRAMATE 25 MG TABLET GT SCH ×2 (09:30→21:14)
[2018-12-30] MEDS ORDERED: SODIUM CHLORIDE IV PRN (09:30)
[2018-12-30] MEDS: HYDROCODONE/APAP 5/325MG 1 EACH TABLET GT SCH ×3 (09:32→17:47)
[2018-12-30] MEDS: METOPROLOL TARTRATE 25 MG TABLET GT SCH ×2 (09:32→21:16)
[2018-12-30] MEDS: ZINC SULFATE 220 MG CAPSULE GT SCH (09:33)
[2018-12-30] MEDS: LACTOBACILLUS RHAMNOSUS GG 1 EACH CAP.SPRINK PO SCH ×2 (09:33→17:47)
[2018-12-30] MEDS: FERROUS SULFATE UDC 300 MG/5 ML UDC GT SCH (09:33)
[2018-12-30] MEDS: DAKINS QUARTER STRENGTH (0.125%) 480 ML BOTTLE TOP SCH (09:33)
[2018-12-30] MEDS: DOCUSATE SODIUM LIQ 100 MG/10 ML UDC PO SCH ×2 (09:33→17:47)
[2018-12-30] MEDS: ACETAMINOPHEN 650 MG/SUPP.RECT RC PRN (12:21)
[2018-12-30] MEDS: POTASSIUM CHLORIDE 20 MEQ POWDER PACKET GT SCH ×2 (12:21→12:23)
[2018-12-30] MEDS: PIPERACILLIN /TAZOBACTAM 3.375 G in IV D5W 50 ML IV SCH ×2 (16:33→21:15)
[2018-12-30] MEDS: JEVITY 1.2 CAL 1,000 ML BOTTLE GT PRN (17:47)
[2018-12-30] MEDS: MULTIVITAMINS,THERAGRAN 1 UDTAB TABLET GT SCH (17:47)
--- NOTE | 2018-12-30 17:50 | NUR ---
RT PATIENT REMAINS STABLE ON [facility] VENT. TRACH SECURE AND IN PROPER POSITION. CONT CURRENT PLAN OF RESP CARE. Addendum: 12/30/18 at 1751 by WM HENDERSON RT Amended: Links added.
--- NOTE | 2018-12-30 18:45 | NUR ---
VENDING MACHINE REPAIRER CLOSING NOTES PT REMAINS IN FAIR CONDITION. ALL NEEDS ANTICIPATED FOR AND MET DURING SHIFT . ALL DUE MEDS GIVEN. PRN AND WOUND CARE RENDERED ORDERED. PT REPOSITIONED AND TURNED PER PROTOCOL. HE CONTINUES TO TOLERATE FEEDINGS WELL AT DECREASED RATE. VSS REMAIN STABLE. MIDLINE REMAINS PATENT AND INTACT. WILL ENDORSE TO NIGHTSHIFT RN FOR TWIN
--- NOTE | 2018-12-30 19:30 | NUR ---
LITIGATION DOCKET MANAGER INITIAL SHIFT NOTES RECEIVED PATIENT IN BED, EYES CLOSED, OBTUNDED AT BASELINE. TRACH MIDLINE AND INTACT, BREATHING EVEN AND NONLABORED, TOLERATING MECHANICAL VENTILATION WELL, NO RESPIRATORY DISTRESS NOTED, SETTINGS: AC 12, TV 500, FIO2 40%, PEEP +5. TELEMETRY MONITORING READS SINUS JULIANNA-SINUS RHYTHM HR CURRENTLY 52 BPM,. GT PATENT AND INTACT, ONGOING TUBE FEEDS @ 20ML/HR, MINIMAL GASTRIC RESIDUALS NOTED, WILL INCREASE SLOWLY TOWARDS MAX GOAL RATE OF 60ML/HR. HOB KEPT ELEVATED FOR ASPIRATION PRECAUTIONS, BED IN LOWEST AND LOCKED POSITION. WILL CONTINUE TO CLOSELY MONITOR
[2018-12-30] MEDS: SENNOSIDES 8.6 MG TABLET GT SCH (21:14)
[2018-12-30] MEDS: LEVETIRACETAM SOL (5 ML) 100 MG/ML UDC GT SCH (21:16)
[2018-12-31] VITALS (24 sets, daily range): BP systolic 94–135; BP diastolic 56–100
--- NOTE | 2018-12-31 | NUR ---
WINDLACE MACHINE OPERATOR NOTES PATIENT TOLERATING TUBE FEEDING WELL AT RATE OF 20ML/HR, RATE INCREASED TO 30 ML/HR. WILL MONITOR GASTRIC RESIDUALS CLOSELY
[2018-12-31] MEDS: BACLOFEN (10 MG) 10 MG TABLET GT SCH ×4 (00:40→17:25)
[2018-12-31] MEDS: ACETAMINOPHEN 650 MG/20.3 ML UDC NG PRN ×3 (00:40→16:30)
[2018-12-31] MEDS: METOCLOPRAMIDE HCL 10 MG/10 ML UDC GT SCH ×4 (00:40→17:26)
[2018-12-31] MEDS: ALBUTEROL FS 2.5 MG/3 ML VIAL.NEB IH SCH ×4 (01:30→19:41)
[2018-12-31] MEDS: IPRATROPIUM NEB FS 0.5 MG/2.5 ML AMPUL.NEB IH SCH ×4 (01:30→19:41)
[2018-12-31] MEDS: PIPERACILLIN /TAZOBACTAM 3.375 G in IV D5W 50 ML IV SCH ×4 (03:29→20:04)
[2018-12-31] MEDS: IV NS 0.9% 1,000 ML IV PRN ×3 (03:48→19:40)
[2018-12-31 05:06] LABS: BASOPHILS % (AUTO) 0.4 % (0.0-2.0); EOSINOPHILS % (AUTO) 10.5 % (0.0-6.0); HEMATOCRIT 30 % (39-51); LYMPHOCYTES # (AUTO) 1.6 /CMM (0.8-4.8); LYMPHOCYTES % (AUTO) 20.5 % (20.0-44.0); MEAN CORPUSCULAR HGB CONC 34 g/dl (31.0-36.0); MEAN CORPUSCULAR VOLUME 89 fL (80-96); MONOCYTES # (AUTO) 0.7 /CMM (0.1-1.30); MONOCYTES % (AUTO) 8.4 % (2.0-12.0); NEUTROPHILS # (AUTO) 4.8 /CMM (1.8-8.9); NEUTROPHILS % (AUTO) 60.2 % (43.0-81.0); PLATELET COUNT (AUTO) 260 /CMM (150-450); RED BLOOD CELL COUNT(AUTO) 3.32 MIL/uL (4.5-6.0); WHITE BLOOD COUNT (AUTO) 7.9 K/uL (4.3-11.0)
[2018-12-31 05:14] LABS: CALCIUM, SERUM 8.2 mg/dL (8.5-10.1); CREATININE 0.6 mg/dL (0.6-1.3); POTASSIUM 3.5 mmol/L (3.5-5.1)
[2018-12-31] MEDS: VANCOMYCIN 1 GM in IV D5W 250 ML IV SCH (05:33)
[2018-12-31] MEDS: CHLORHEXIDINE GLUCONATE 15 ML UDC MM SCH ×2 (06:38→16:31)
--- NOTE | 2018-12-31 07:00 | NUR ---
FLOWER MAKER NOTES PATIENT RESTING IN BED, APPEARS COMFORTABLE. NO ACUTE CHANGES THROUGHOUT SHIFT. WILL ENDORSE THE PATIENT TO THE AM SHIFT NURSE FOR CONTINUITY OF CARE.
--- NOTE | 2018-12-31 07:05 | NUR ---
RN NOTES RECEIVED PATIENT ON BED, VENT/ TRACH DEPENDENT, TOLERING CURRENT VENT SETTING WELL, OBTUNDED , NO SOB NOTED, BREATHING EVEN AND NONLABORED, TOLERATING MECHANICAL VENTILATION WELL,ON TELE SR HR IN 70'S , CONDOM CATH DRINING TO GRAVITY WITH YELLOW CLEAR URINE, JEVITY AT 40CC/HR RUNNING VIA GT , NS AT 150CC/HR RUNNING VIA R UPPER ARM MIDLINE ,HOB KEPT ELEVATED FOR ASPIRATION PRECAUTIONS, BED IN LOWEST AND LOCKED POSITION. WILL CONTINUE TO CLOSELY MONITOR.
[2018-12-31] MEDS: FERROUS SULFATE UDC 300 MG/5 ML UDC GT SCH (08:35)
[2018-12-31] MEDS: LEVETIRACETAM SOL (5 ML) 100 MG/ML UDC GT SCH ×2 (08:35→20:04)
[2018-12-31] MEDS: METOPROLOL TARTRATE 25 MG TABLET GT SCH ×2 (08:36→20:05)
[2018-12-31] MEDS: HYDROCODONE/APAP 5/325MG 1 EACH TABLET GT SCH ×3 (08:36→16:33)
[2018-12-31] MEDS: TIZANIDINE HCL 4 MG TABLET GT SCH ×2 (08:37→20:04)
[2018-12-31] MEDS: LACTOBACILLUS RHAMNOSUS GG 1 EACH CAP.SPRINK PO SCH ×2 (08:37→16:32)
[2018-12-31] MEDS: ZINC SULFATE 220 MG CAPSULE GT SCH (08:37)
[2018-12-31] MEDS: TOPIRAMATE 25 MG TABLET GT SCH ×2 (08:37→20:04)
[2018-12-31] MEDS: ESOMEPRAZOLE MAGNESIUM 40 MG SUSPDR.PKT GT SCH ×2 (08:38→16:31)
[2018-12-31] MEDS: DAKINS QUARTER STRENGTH (0.125%) 480 ML BOTTLE TOP SCH (08:39)
[2018-12-31] MEDS: DOCUSATE SODIUM LIQ 100 MG/10 ML UDC PO SCH ×2 (08:39→16:33)
--- NOTE | 2018-12-31 12:00 | NUR ---
RN NOTES AT TIMES PT GET SPASTIC AND HIS FACE TURN RED, HR GOES UP TO 130'S -140'S, BUT HIS HEART RATE COMES BACK TO NORMAL IN LESS THAN A MINUTE. CONTINUE TO MONITOR.
--- NOTE | 2018-12-31 14:00 | NUR ---
RN NOTES TRACH CARE DONE, VSS STABLE, CONTINUE TO MONITOR
[2018-12-31] MEDS: VANCOMYCIN 0.75 GM in IV D5W 250 ML IV SCH ×2 (14:30→21:16)
[2018-12-31] MEDS: JEVITY 1.2 CAL 1,000 ML BOTTLE GT PRN (15:40)
[2018-12-31] MEDS: MULTIVITAMINS,THERAGRAN 1 UDTAB TABLET GT SCH (17:26)
--- NOTE | 2018-12-31 18:00 | NUR ---
RN NOTES VSS STABLE, SUPPORTIVE FAMILY AT THE BEDSIDE, TF AT 50CC/HR RUNNING VIA GT, NO RESIDUAL NOTED ,NS AT 150CC/HR INFUSING , 2 LOOSE STOOL NOTED, STOOL SOFTENER HELD, SR UP x3, CALL LIGHT WITHIN EASY REACH, BED LOCKED AND IN LOWEST POSITION, WILL ENDOSE TO ELECTRICAL REPAIRER NURSE FOR CONTINUITY OF CARE
--- NOTE | 2018-12-31 19:30 | NUR ---
LOGISTICS ASSOCIATE NOTE RECEIVED PT OBTUNDED. OPENS EYES SPONTANEOUSLY AND NOTED WITH NO TRACKING. ON MECH VENT WITH SETTINGS WELL TOLERATED. BREATHING UNLABORED. HOB ELEVATED AND ON ASPIRATION PRECAUTIONS. NOTED FEBRILE WITH COOLING MEASURE IN PLACE. IV FLUIDS INFUSING. GT FEEDING INFUSING AND TOLERATED WITH 50 ML RESIDUALS NOTED. WILL MONITOR.
--- NOTE | 2018-12-31 19:41 | NUR ---
PT RECEIVED TRACHED PORTEX 8 ON [facility] VENT WITH NOTED SETTINGS. PT IS AWAKE , RESPONDS TO STIMULI WHEN SUCTIONED . SUCTIONED SMALL AMOUNT OF WHITE THICK SECRETIONS. PADDED PRODUCTS FINISHER DONE. ALARMS ON AND AUDIBLE. VENT PLUGGED INTO RED OUTLET. AMBU BAG AT HEAD OF BED. NO SOB OR SIGNS OF DISTRESS NOTED AT THIS TIME. WILL CONTINUE TO MONITOR THE PATIENT FOR ANY CHANGES.
[2018-12-31] MEDS: SENNOSIDES 8.6 MG TABLET GT SCH (21:18)
[2019-01-01] VITALS (24 sets, daily range): BP systolic 95–162; BP diastolic 60–140
[2019-01-01] MEDS: BACLOFEN (10 MG) 10 MG TABLET GT SCH ×4 (00:10→17:18)
[2019-01-01] MEDS: METOCLOPRAMIDE HCL 10 MG/10 ML UDC GT SCH ×4 (00:10→17:18)
[2019-01-01] MEDS: IPRATROPIUM NEB FS 0.5 MG/2.5 ML AMPUL.NEB IH SCH ×4 (01:03→19:44)
[2019-01-01] MEDS: ALBUTEROL FS 2.5 MG/3 ML VIAL.NEB IH SCH ×4 (01:03→19:44)
[2019-01-01] MEDS: HYDROCODONE/APAP 5/325MG 1 EACH TABLET PO PRN (02:57)
[2019-01-01] MEDS: PIPERACILLIN /TAZOBACTAM 3.375 G in IV D5W 50 ML IV SCH ×4 (02:58→21:19)
[2019-01-01] MEDS: IV NS 0.9% 1,000 ML IV PRN ×3 (03:03→17:22)
[2019-01-01 04:38] LABS: BASOPHILS % (AUTO) 0.3 % (0.0-2.0); EOSINOPHILS % (AUTO) 4.1 % (0.0-6.0); HEMATOCRIT 31 % (39-51); HEMOGLOBIN 10.3 g/dL (13.5-17.5); LYMPHOCYTES # (AUTO) 0.8 /CMM (0.8-4.8); LYMPHOCYTES % (AUTO) 6.1 % (20.0-44.0); MEAN CORPUSCULAR HGB CONC 34 g/dl (31.0-36.0); MEAN CORPUSCULAR VOLUME 89 fL (80-96); MONOCYTES # (AUTO) 0.7 /CMM (0.1-1.30); MONOCYTES % (AUTO) 5.6 % (2.0-12.0); NEUTROPHILS # (AUTO) 10.6 /CMM (1.8-8.9); NEUTROPHILS % (AUTO) 83.9 % (43.0-81.0); PLATELET COUNT (AUTO) 319 /CMM (150-450); RED BLOOD CELL COUNT(AUTO) 3.45 MIL/uL (4.5-6.0); WHITE BLOOD COUNT (AUTO) 12.6 K/uL (4.3-11.0)
[2019-01-01 04:46] LABS: CALCIUM, SERUM 8.4 mg/dL (8.5-10.1); CREATININE 0.7 mg/dL (0.6-1.3); MAGNESIUM 1.9 mg/dL (1.8-2.4)
[2019-01-01] MEDS: CHLORHEXIDINE GLUCONATE 15 ML UDC MM SCH ×2 (06:33→16:15)
[2019-01-01] MEDS: VANCOMYCIN 0.75 GM in IV D5W 250 ML IV SCH ×3 (06:34→22:00)
--- NOTE | 2019-01-01 06:56 | NUR ---
MANAGER OF SOFTWARE NOTE PT REMAINED STABLE DURING SHIFT. NO ACUTE DISTRESS NOTED. VENT SETTINGS WELL TOLERATED. SUCTIONED NEEDED. REPOSITIONED Q2H. ORAL CARE PERFORMED. KEPT CLEAN AND DRY. REMAINS FEBRILE. NOTED WITH EPISODES OF TACHYCARDIA. GAVE NORCO PRN FOR PAIN. WILL ENDORSE TO NEXT SHIFT FOR CONTINUITY OF CARE.
--- NOTE | 2019-01-01 08:00 | NUR ---
rn notes received pt awake, nonverbal, trach in place and vent settings tolerated well. gt in place and on going feeding, hob kept elevated. ble and bue contracted, positioned for comfort. ivf infusing well to j carlos iv access. safety ensured. sinus thythm on the monitor. will monitor accordingly.
--- NOTE | 2019-01-01 08:05 | NUR ---
RT NOTE PT RECEIVED TRACHED PORTEX [facility] WITH NOTED SETTINGS. PT IS AWAKE , RESPONDS TO STIMULI WHEN SUCTIONED . SUCTIONED SMALL AMOUNT OF WHITE THICK SECRETIONS. CHECKER PRODUCT DESIGN DONE. ALARMS ON AND AUDIBLE. VENT PLUGGED INTO RED OUTLET. AMBU BAG AT HEAD OF BED. NO SOB OR SIGNS OF DISTRESS NOTED AT THIS TIME. WILL CONTINUE TO MONITOR THE PATIENT FOR ANY CHANGES.
[2019-01-01] MEDS: TOPIRAMATE 25 MG TABLET GT SCH ×2 (08:58→21:17)
[2019-01-01] MEDS: TIZANIDINE HCL 4 MG TABLET GT SCH ×2 (08:58→21:17)
[2019-01-01] MEDS: LACTOBACILLUS RHAMNOSUS GG 1 EACH CAP.SPRINK PO SCH ×2 (08:59→16:15)
[2019-01-01] MEDS: ZINC SULFATE 220 MG CAPSULE GT SCH (09:00)
[2019-01-01] MEDS: HYDROCODONE/APAP 5/325MG 1 EACH TABLET GT SCH ×3 (09:00→16:15)
[2019-01-01] MEDS: METOPROLOL TARTRATE 25 MG TABLET GT SCH ×2 (09:00→21:18)
[2019-01-01] MEDS: ESOMEPRAZOLE MAGNESIUM 40 MG SUSPDR.PKT GT SCH ×2 (09:01→16:16)
[2019-01-01] MEDS: DOCUSATE SODIUM LIQ 100 MG/10 ML UDC PO SCH ×2 (09:01→16:15)
[2019-01-01] MEDS: LEVETIRACETAM SOL (5 ML) 100 MG/ML UDC GT SCH ×2 (09:01→21:17)
[2019-01-01] MEDS: FERROUS SULFATE UDC 300 MG/5 ML UDC GT SCH (09:01)
[2019-01-01] MEDS: DAKINS QUARTER STRENGTH (0.125%) 480 ML BOTTLE TOP SCH (09:10)
[2019-01-01] MEDS: POTASSIUM CHLORIDE 20 MEQ POWDER PACKET GT SCH ×3 (12:20→14:37)
[2019-01-01] MEDS: JEVITY 1.2 CAL 1,000 ML BOTTLE GT PRN (16:11)
[2019-01-01] MEDS: MULTIVITAMINS,THERAGRAN 1 UDTAB TABLET GT SCH (17:18)
[2019-01-01] MEDS: PROSOURCE / PROSTAT (PYXIS) 30 ML UDC GT SCH (18:35)
--- NOTE | 2019-01-01 19:27 | NUR ---
rn closing notes pt remains obtunded, vent settings well tolerated. adequate urine output. turned and repositioned during this shift. all meds given thru GTube, aspiration precaution observed at all times. endorsed to next shift rn for continuity of care.
--- NOTE | 2019-01-01 19:45 | NUR ---
PT RECEIVED TRACHED PORTEX 8 ON [facility] VENT WITH NOTED SETTINGS. PT IS AWAKE , RESPONDS TO STIMULI WHEN SUCTIONED . BREATHING TX GIVEN ORDERED. NO ADVERSE REACTION NOTED. SUCTIONED SMALL AMOUNT OF WHITE THICK SECRETIONS. SAGGER PREPARER DONE. ALARMS ON AND AUDIBLE. VENT PLUGGED INTO RED OUTLET. AMBU BAG AT HEAD OF BED. NO SOB OR SIGNS OF DISTRESS NOTED AT THIS TIME. WILL CONTINUE TO MONITOR THE PATIENT FOR ANY CHANGES.
--- NOTE | 2019-01-01 20:57 | NUR ---
agricultural engineering technologist. initial assessment. received the pt rest on the bed. awake, open eyes, does not follow commands. pt is contracted. vent to trach connected. portex #8,ac 12,tv 500,fio2 40%, peep 5. sat 98%. no acute distress noted. monitor car operator showing s tach. iv rt upper arm mid line. .rt ac 20g. gt intact. gevity 60ml/h,condom cath intact. ivf ns 150ml/h,hob elevated. will continue to monitor vitals.
[2019-01-01] MEDS: ACETAMINOPHEN 650 MG/20.3 ML UDC NG PRN (21:17)
[2019-01-01] MEDS: SENNOSIDES 8.6 MG TABLET GT SCH (21:17)
--- NOTE | 2019-01-01 22:16 | NUR ---
curriculum coordinator. report given to ash neri. transfer the pt to room 118 bed 2. pt is stable.
[2019-01-02] VITALS: BP 103/67
[2019-01-02] MEDS: IPRATROPIUM NEB FS 0.5 MG/2.5 ML AMPUL.NEB IH SCH ×4 (01:06→19:22)
[2019-01-02] MEDS: ALBUTEROL FS 2.5 MG/3 ML VIAL.NEB IH SCH ×4 (01:06→19:22)
[2019-01-02] MEDS: BACLOFEN (10 MG) 10 MG TABLET GT SCH ×5 (01:12→23:43)
[2019-01-02] MEDS: METOCLOPRAMIDE HCL 10 MG/10 ML UDC GT SCH ×5 (01:15→23:42)
[2019-01-02] MEDS: IV NS 0.9% 1,000 ML IV PRN ×4 (01:21→23:45)
[2019-01-02] MEDS: PIPERACILLIN /TAZOBACTAM 3.375 G in IV D5W 50 ML IV SCH ×4 (03:12→23:36)
[2019-01-02 04:00] VITALS: BP 162/85
[2019-01-02] MEDS: VANCOMYCIN 0.75 GM in IV D5W 250 ML IV SCH ×2 (05:34→15:38)
[2019-01-02 08:00] VITALS: BP 162/99
[2019-01-02 08:03] LABS: CALCIUM, SERUM 8.2 mg/dL (8.5-10.1); CREATININE 0.6 mg/dL (0.6-1.3); POTASSIUM 3.2 mmol/L (3.5-5.1)
[2019-01-02] MEDS: LACTOBACILLUS RHAMNOSUS GG 1 EACH CAP.SPRINK PO SCH ×2 (08:40→17:39)
[2019-01-02] MEDS: DOCUSATE SODIUM LIQ 100 MG/10 ML UDC PO SCH ×2 (08:40→17:39)
[2019-01-02] MEDS: TIZANIDINE HCL 4 MG TABLET GT SCH ×2 (08:40→23:44)
[2019-01-02] MEDS: FERROUS SULFATE UDC 300 MG/5 ML UDC GT SCH (08:40)
[2019-01-02] MEDS: PROSOURCE / PROSTAT (PYXIS) 30 ML UDC GT SCH ×3 (08:40→17:00)
[2019-01-02] MEDS: TOPIRAMATE 25 MG TABLET GT SCH ×2 (08:40→23:43)
[2019-01-02] MEDS: LEVETIRACETAM SOL (5 ML) 100 MG/ML UDC GT SCH ×2 (08:40→23:42)
[2019-01-02] MEDS: ZINC SULFATE 220 MG CAPSULE GT SCH (08:40)
[2019-01-02] MEDS: METOPROLOL TARTRATE 25 MG TABLET GT SCH ×2 (08:41→23:43)
[2019-01-02] MEDS: HYDROCODONE/APAP 5/325MG 1 EACH TABLET GT SCH ×3 (08:42→17:39)
[2019-01-02] MEDS: DAKINS QUARTER STRENGTH (0.125%) 480 ML BOTTLE TOP SCH (08:43)
[2019-01-02] MEDS: CHLORHEXIDINE GLUCONATE 15 ML UDC MM SCH ×2 (08:54→17:39)
[2019-01-02] MEDS: ESOMEPRAZOLE MAGNESIUM 40 MG SUSPDR.PKT GT SCH ×2 (09:12→17:39)
[2019-01-02 12:00] VITALS: BP 140/91
[2019-01-02] MEDS: POTASSIUM CHLORIDE 20 MEQ POWDER PACKET NG SCH ×3 (12:30→13:54)
[2019-01-02] MEDS ORDERED: POTASSIUM CHLORIDE 20 MEQ POWDER PACKET NG SCH (14:00)
[2019-01-02] MEDS: JEVITY 1.2 CAL 1,000 ML BOTTLE GT PRN (15:48)
[2019-01-02 16:00] VITALS: BP 122/77
[2019-01-02] MEDS: ACETAMINOPHEN 650 MG/20.3 ML UDC NG PRN (16:02)
--- NOTE | 2019-01-02 16:40 | NUR ---
RT NOTE Pt received on Shiley #7 XLT trach and on [facility] vent w ordered settings. Vent is plugged into red outlet and alarms are set and audible. Pt is stable. No respiratory distress or sob noted t/o shift. Will continue to monitor. Addendum: 01/02/19 at 1649 by CLAUDIA CULP RT Amended: Links added.
[2019-01-02] MEDS: MULTIVITAMINS,THERAGRAN 1 UDTAB TABLET GT SCH (17:39)
--- NOTE | 2019-01-02 18:30 | NUR ---
RN NOTE: PATIENT REMAINS ALERT AWAKE OPEN EYES, OBTUNDED. ON VENT-TRAC, SETTINGS TOLERATING WELL.NO S/S OF PAIN NOTED. CONTINUE WITH PAIN MANAGEMENT MEDICATION SCHEDULE. ASPIRATION PRECAUTIONS OBSERVED. G-TUBE FEEDING RUNNING, TOLERATING WELL. CONTINUE WITH IV FLUIDS ORDERED. SAFETY MEASURES OBSERVED. WOUND CARE DONE ORDERED. CONTINUE WITH PLAN OF CARE.
[2019-01-02 20:00] VITALS: BP 123/75
--- NOTE | 2019-01-02 20:13 | NUR ---
PATIENT RECEIVED ON TRACH TO VENT WITH SETTINGS OF AC 16, 550 VT, 40%. SUCTIONED FOR MINIMAL, THIN, YELLOW SECRETIONS. GIVEN IN-LINE TREATMENTS WITH NO ADVERSE REACTIONS. AMBU BAG AT BEDSIDE. VENT AND PULSE OXIMETER ALARMS AUDIBLE AND VISIBLE. VENT PLUGGED INTO RED OUTLET. NO DISTRESS/SOB NOTED. Addendum: 01/02/19 at 2013 by JOSEPH ORTIZIT RT Amended: Links added. Addendum: 01/02/19 at 2105 by JOSEPH Ivy SULIT RT PATIENT RECEIVED ON TRACH TO VENT WITH SETTINGS OF AC 16, 550 VT, 40%, +5. SUCTIONED FOR MINIMAL, THIN, YELLOW SECRETIONS. GIVEN IN-LINE TREATMENTS WITH NO ADVERSE REACTIONS. AMBU BAG AT BEDSIDE. VENT AND PULSE OXIMETER ALARMS AUDIBLE AND VISIBLE. VENT PLUGGED INTO RED OUTLET. NO DISTRESS/SOB NOTED.
--- NOTE | 2019-01-02 23:34 | NUR ---
TRANSFER OF CARE RECEIVE PT ON BED OBTUNDED ON TRACH TO VENT WITH SETTINGS ORDERED. NO S/S OF DISTRESS, RESPIRATIONS EVEN AND UNLABORED. VENT PLUGGED INTO RED OUTLET. 02 SAT 100%. WILL ADMINISTER MEDS [place] CONSTABLE RN ENDORSE. SAFETY MEASURES AT ALL TIMES. WILL CONT TO MTR.
--- NOTE | 2019-01-02 23:37 | NUR ---
LATEADMIN 2100 ZOSYN LATE ADMIN OF ATB DUE TO PRIMARY NURSE UNABLE TO GIVE MEDICATION ON TIME
--- NOTE | 2019-01-02 23:40 | NUR ---
CORPORATE DEVELOPMENT ASSOCIATE ALL GT due meds given. LATE ADMIN DUE TO PRIMARY NURSE UNABLE TO GIVE MEDICATION ON TIME
[2019-01-02] MEDS: SENNOSIDES 8.6 MG TABLET GT SCH (23:44)
[2019-01-03] VITALS (7 sets, daily range): BP systolic 119–146; BP diastolic 56–91
[2019-01-03] MEDS: VANCOMYCIN 0.75 GM in IV D5W 250 ML IV SCH ×4 (00:17→21:22)
--- NOTE | 2019-01-03 00:17 | NUR ---
LATE ADMIN Vancomycin IV ATBV LATE ADMIN DUE TO PRIMARY NURSE UNABLE TO GIVE MEDICATION ON TIME
[2019-01-03] MEDS: IPRATROPIUM NEB FS 0.5 MG/2.5 ML AMPUL.NEB IH SCH ×4 (01:46→20:13)
[2019-01-03] MEDS: ALBUTEROL FS 2.5 MG/3 ML VIAL.NEB IH SCH ×4 (01:46→20:13)
[2019-01-03] MEDS: PIPERACILLIN /TAZOBACTAM 3.375 G in IV D5W 50 ML IV SCH ×4 (03:03→21:21)
[2019-01-03] MEDS: BACLOFEN (10 MG) 10 MG TABLET GT SCH ×3 (05:07→18:29)
[2019-01-03] MEDS: METOCLOPRAMIDE HCL 10 MG/10 ML UDC GT SCH ×3 (05:07→18:29)
[2019-01-03 06:34] LABS: BASOPHILS % (AUTO) 0.4 % (0.0-2.0); EOSINOPHILS % (AUTO) 5.8 % (0.0-6.0); HEMATOCRIT 30 % (39-51); LYMPHOCYTES # (AUTO) 1.3 /CMM (0.8-4.8); LYMPHOCYTES % (AUTO) 14.2 % (20.0-44.0); MEAN CORPUSCULAR HGB CONC 33 g/dl (31.0-36.0); MEAN CORPUSCULAR VOLUME 90 fL (80-96); MONOCYTES # (AUTO) 0.9 /CMM (0.1-1.30); MONOCYTES % (AUTO) 9.2 % (2.0-12.0); NEUTROPHILS # (AUTO) 6.7 /CMM (1.8-8.9); NEUTROPHILS % (AUTO) 70.4 % (43.0-81.0); PLATELET COUNT (AUTO) 323 /CMM (150-450); RED BLOOD CELL COUNT(AUTO) 3.34 MIL/uL (4.5-6.0); WHITE BLOOD COUNT (AUTO) 9.5 K/uL (4.3-11.0)
--- NOTE | 2019-01-03 06:44 | NUR ---
CABLE DRILLER RN AM CARE RENDERED. WITH READING OF SR 80 IN THE TELECOMMUNICATIONS REPAIRER, NO S/S OF DISTRESS, TOLERATING VENT SETTINGS ORDERED. 02 SAT AT 99%. NURSING CARE RENDERED, KEPT CLEAN AND DRY AND COMFORTABLE. NEEDS ATTENDED AND ANTICIPATED. SAFETY MEASURES AT ALL TIMES. ENDORSE TO THE NEXT SHIFT. Addendum: 01/03/19 at 0655 by FLORENCIA KAY RN REPOSITION Q2HR. GOOD SKIN CARE
[2019-01-03 06:50] LABS: CALCIUM, SERUM 8.5 mg/dL (8.5-10.1); CREATININE 0.6 mg/dL (0.6-1.3); POTASSIUM 3.6 mmol/L (3.5-5.1)
--- NOTE | 2019-01-03 07:30 | NUR ---
RN NOTES PATIENT IN BED, AWAKE, WITH SPONTANEOUS EYE OPENING,NONVERBAL, TRACH AND VENT DEPENDENT. TOLERATING CURRENT VENT SETTING. NOT ON ANY FORM OF DISTRESS. SATING FINE. SUCTIONED FOR AIRWAY PATENCY, SUCTIONED NOTED TO BE WHITE-YELLOWISH, THIN SECRETION. SR ON THE TELEMONITOR WITH HR ON THE 60. GT FEEDING: JEVITY 1.2 AT 60 CC/HR. GT PLACEMENT CONFIRMED THROUGH ASPIRATING GASTRIC RESIDUAL, NO RESIDUAL TAKEN AT THIS TIME. MIDLINE ON THE R ARM, WITH ONGOING IVF OF NS AT 150CC/HR. ORTIZ CATHETER DRAINING WELL TO GRAVITY TO CLEAR YELLOW URINE. HOB KEPT ELEVATED. SAFETY MEASURES OBSERVED AND MAINTAINED. CALL LIGHT PLACE WITHIN REACH. WILL CONTINUE TO MONITOR AND ANTICIPATE NEEDS Addendum: 01/06/19 at 1001 by CLEMENTINE HEADLEY RN ERROR IN CHARTING PATIENT WITH CONDOM CATHETER IN PLACE
[2019-01-03] MEDS: CHLORHEXIDINE GLUCONATE 15 ML UDC MM SCH ×2 (09:43→18:29)
[2019-01-03] MEDS: ESOMEPRAZOLE MAGNESIUM 40 MG SUSPDR.PKT GT SCH ×2 (09:43→18:28)
[2019-01-03] MEDS: LEVETIRACETAM SOL (5 ML) 100 MG/ML UDC GT SCH ×2 (09:43→21:26)
[2019-01-03] MEDS: TIZANIDINE HCL 4 MG TABLET GT SCH ×2 (09:44→21:25)
[2019-01-03] MEDS: ZINC SULFATE 220 MG CAPSULE GT SCH (09:44)
[2019-01-03] MEDS: FERROUS SULFATE UDC 300 MG/5 ML UDC GT SCH (09:44)
[2019-01-03] MEDS: TOPIRAMATE 25 MG TABLET GT SCH ×2 (09:44→21:26)
[2019-01-03] MEDS: DOCUSATE SODIUM LIQ 100 MG/10 ML UDC PO SCH ×2 (09:44→18:35)
[2019-01-03] MEDS: METOPROLOL TARTRATE 25 MG TABLET GT SCH ×2 (09:44→21:24)
[2019-01-03] MEDS: HYDROCODONE/APAP 5/325MG 1 EACH TABLET GT SCH ×3 (09:45→18:35)
[2019-01-03] MEDS: LACTOBACILLUS RHAMNOSUS GG 1 EACH CAP.SPRINK PO SCH ×2 (09:45→18:35)
[2019-01-03] MEDS: DAKINS QUARTER STRENGTH (0.125%) 480 ML BOTTLE TOP SCH (09:46)
[2019-01-03] MEDS: PROSOURCE / PROSTAT (PYXIS) 30 ML UDC GT SCH ×3 (09:47→18:29)
[2019-01-03] MEDS: JEVITY 1.2 CAL 1,000 ML BOTTLE GT PRN (12:54)
[2019-01-03] MEDS: MULTIVITAMINS,THERAGRAN 1 UDTAB TABLET GT SCH (18:29)
--- NOTE | 2019-01-03 18:29 | NUR ---
RT END OF THE SHIFT REPORT, PT. 23 Y OLD MALE PT. RECEIVED @ 0700 AM TRACH'D PORTEX # 8 ON [facility]. VENT WITH NOTED AC MODE. NONE VERBAL NO VENT CHANGES DONE T/O DAY, TX'S Q6 GIVEN INLINE PT. REMAIN STABLE. PT SUX'D LARGE AMT WHITE SECRETIONS. B/S RHONCHI/RALES BILATERALLY, EQUAL CHEST RISE NOTED. VENT IS PLUGGED INTO RED OUTLET. ALARMS ARE SET AND FUNCTIONAL. HME CHANGED, AMBU BAG AT BEDSIDE. TRACH CARE DONE, INNER CANNULA CHANGED. WILL CONTINUE TO MONITOR. REPORT WILL PASS TO PM SHIFT. Addendum: 01/03/19 at 1830 by MERARI KING RT Amended: Links added.
--- NOTE | 2019-01-03 19:20 | NUR ---
RN NOTES ENDORSED FOR CONTINUITY OF CARE. NOT ON ANY FORM OF DISTRESS. ALL NURSING NEEDS ATTENDED AND MET. SAFETY MEASURES IN PLACE AT ALL TIMES. CALL LIGHT WITHIN REACH
[2019-01-03] MEDS: IV NS 0.9% 1,000 ML IV PRN (19:41)
--- NOTE | 2019-01-03 20:13 | NUR ---
RT Note PT received trached on [facility] vent on charted settings. No signs of resp distress noted. Airway patent and secured. SALES CORRESPONDENCE CLERK done. PT suctioned. HHN TX given. Alarms set and audible. Ambubag at bedside. Vent connected to red outlet. Will cont to monitor. Addendum: 01/03/19 at 2055 by MARIA LUISA RODGERS RT Amended: Links added.
[2019-01-03] MEDS: SENNOSIDES 8.6 MG TABLET GT SCH (22:00)
[2019-01-03] MEDS: HYDROCODONE/APAP 5/325MG 1 EACH TABLET PO PRN (22:10)
[2019-01-04] VITALS: BP_SYST 130; BP_DIAS 77; BP_DIAS 80
[2019-01-04] MEDS: BACLOFEN (10 MG) 10 MG TABLET GT SCH ×5 (00:46→23:36)
[2019-01-04] MEDS: METOCLOPRAMIDE HCL 10 MG/10 ML UDC GT SCH ×5 (00:46→23:36)
[2019-01-04] MEDS: IPRATROPIUM NEB FS 0.5 MG/2.5 ML AMPUL.NEB IH SCH ×4 (01:58→19:14)
[2019-01-04] MEDS: ALBUTEROL FS 2.5 MG/3 ML VIAL.NEB IH SCH ×4 (01:58→19:14)
[2019-01-04] MEDS: PIPERACILLIN /TAZOBACTAM 3.375 G in IV D5W 50 ML IV SCH ×4 (02:48→21:47)
[2019-01-04] MEDS: HYDROCODONE/APAP 5/325MG 1 EACH TABLET PO PRN (02:49)
[2019-01-04] MEDS: IV NS 0.9% 1,000 ML IV PRN ×2 (03:19→17:46)
[2019-01-04 04:00] VITALS: BP 132/76
[2019-01-04] MEDS: VANCOMYCIN 0.75 GM in IV D5W 250 ML IV SCH (05:13)
[2019-01-04 06:57] LABS: CALCIUM, SERUM 8.3 mg/dL (8.5-10.1); CREATININE 0.5 mg/dL (0.6-1.3); POTASSIUM 3.5 mmol/L (3.5-5.1)
--- NOTE | 2019-01-04 07:15 | NUR ---
NETWORKING ADMINISTRATOR OPENING PATIENT OBTUNDED, CONTRACTED, NONVERBAL, OPENS EYES TO NAME, VENT DEPENDANT, TOLERATING CURRENT SETTINGS, NO ACUTE RESPIRATORY DISTRESS NOTED. PULSE OX ATTACHED, ALARM AUDIBLE. TELE MONITOR ATTACHED, SR 76. SUCTIONED FOR AIRWAY PATENCY. GTF RUNNING @60mL/HR. PLACEMENT CONFIRMED THROUGH ASPIRATING GASTRIC RESIDUAL + AUSCULTATION. MIDLINE OUT. CONDOM CATHETER DRAINING WELL. HOB KEPT ELEVATED. NO BLEEDING VIA ORAL CAVITY NOTED. PATIENT UNABLE TO MAKE NEEDS KNOWN, WILL CONT TO MONITOR
--- NOTE | 2019-01-04 07:59 | NUR ---
RT Note [facility] charted settings. No signs of resp distress noted. Airway patent and secured. EXHAUSTER ENGINEER done. PT suctioned. HHN TX given. Alarms set and audible. Ambubag at bedside. Vent connected to red outlet. Will cont to monitor.
[2019-01-04 08:00] VITALS: BP 150/90
--- NOTE | 2019-01-04 08:04 | NUR ---
MIDLINE FOUND REMOVED. CALLED DR. PASCAL, RECEIVED ORDER FOR MIDLINE INSERTION, CHANGE OF IVF RATE + MADE AWARE OF TEMP. NURSING SUP AWARE, MIDLINE NURSE CONTACTED
[2019-01-04] MEDS: DOCUSATE SODIUM LIQ 100 MG/10 ML UDC PO SCH ×2 (08:50→17:43)
[2019-01-04] MEDS: FERROUS SULFATE UDC 300 MG/5 ML UDC GT SCH (08:50)
[2019-01-04] MEDS: LEVETIRACETAM SOL (5 ML) 100 MG/ML UDC GT SCH ×2 (08:50→21:46)
[2019-01-04] MEDS: HYDROCODONE/APAP 5/325MG 1 EACH TABLET GT SCH ×3 (08:51→17:44)
[2019-01-04] MEDS: METOPROLOL TARTRATE 25 MG TABLET GT SCH ×2 (08:51→21:47)
[2019-01-04] MEDS: TIZANIDINE HCL 4 MG TABLET GT SCH ×2 (08:52→21:47)
[2019-01-04] MEDS: ESOMEPRAZOLE MAGNESIUM 40 MG SUSPDR.PKT GT SCH ×2 (08:52→17:45)
[2019-01-04] MEDS: TOPIRAMATE 25 MG TABLET GT SCH ×2 (08:52→21:48)
[2019-01-04] MEDS: ZINC SULFATE 220 MG CAPSULE GT SCH (09:31)
[2019-01-04] MEDS: LACTOBACILLUS RHAMNOSUS GG 1 EACH CAP.SPRINK PO SCH ×2 (09:31→17:43)
[2019-01-04] MEDS: CHLORHEXIDINE GLUCONATE 15 ML UDC MM SCH ×2 (09:31→17:43)
[2019-01-04] MEDS: PROSOURCE / PROSTAT (PYXIS) 30 ML UDC GT SCH ×3 (09:32→17:43)
[2019-01-04] MEDS: JEVITY 1.2 CAL 1,000 ML BOTTLE GT PRN (11:15)
[2019-01-04 12:00] VITALS: BP 134/71
[2019-01-04] MEDS: DAKINS QUARTER STRENGTH (0.125%) 480 ML BOTTLE TOP SCH (15:43)
[2019-01-04 16:00] VITALS: BP_SYST 106; BP_SYST 159; BP_DIAS 59; BP_DIAS 77
[2019-01-04] MEDS: MULTIVITAMINS,THERAGRAN 1 UDTAB TABLET GT SCH (17:44)
--- NOTE | 2019-01-04 19:00 | NUR ---
STEAMFITTER SUPERVISOR CLOSING PATIENT NOTED TO HAVE LOW GRADE FEVER THROUGHOUT SHIFT, MD AWARE. NEW MIDLINE PLACED THIS SHIFT. SUCTIONED MANY TIMES PATIENT EXHIBITS RESPIRATORY DISTRESS D/T EXCESS SECRETIONS. 150mL NEGRETE/YELLOW SECRETIONS AT END OF SHIFT. SPOKE TO MOTHER, AWARE OF D/C PLANNING. ORDERED MEDS GIVEN, WOUND CARE COMPLETED. WILL ENDORSE TO NOC RN FOR TWIN
[2019-01-04 20:00] VITALS: BP 125/76
--- NOTE | 2019-01-04 20:00 | NUR ---
FEED INSPECTION SUPERVISOR NOTE PT IN BED OBTUNDED, ON VENT/TRACH TOLERATING THE SETTINGS WELL. SUCTIONED HIM NEEDED THICK YELLOWISH SECRETIONS. NO DISTRESS OR DISCOMFORT NOTED. NO S/S OF PAIN NOTED. ON TELE SR [address] HR 130'S. CONDOM CATH IN PLACE DRAINING YELLOWISH COLOR URINE. SACRUM DECUB DRESSING I/C/D. GTF JEVITY INFUSING AT 60 ML/HR, O ML RESIDUAL NOTED. KEPT HOB ELEVATED. REPOSITION HIM FOR SKIN MANAGEMENT. KEPT HIM DRY AND CLEAN. ALL NEEDS ATTENDED. SIDE RAILS UP X 3 AND CALL LIGHT WITHIN REACH. VSS CONTINUE TO MONITOR HIM.
[2019-01-04] MEDS: SENNOSIDES 8.6 MG TABLET GT SCH (21:46)
[2019-01-04] MEDS: ACETAMINOPHEN 650 MG/20.3 ML UDC NG PRN (21:46)
[2019-01-05] VITALS (7 sets, daily range): BP systolic 103–152; BP diastolic 57–84
[2019-01-05] MEDS: IPRATROPIUM NEB FS 0.5 MG/2.5 ML AMPUL.NEB IH SCH ×4 (01:23→18:55)
[2019-01-05] MEDS: ALBUTEROL FS 2.5 MG/3 ML VIAL.NEB IH SCH ×4 (01:23→18:55)
[2019-01-05] MEDS: PIPERACILLIN /TAZOBACTAM 3.375 G in IV D5W 50 ML IV SCH ×4 (02:53→21:26)
[2019-01-05] MEDS: BACLOFEN (10 MG) 10 MG TABLET GT SCH ×4 (05:29→23:09)
[2019-01-05] MEDS: METOCLOPRAMIDE HCL 10 MG/10 ML UDC GT SCH ×4 (05:29→23:09)
[2019-01-05 06:40] LABS: CALCIUM, SERUM 8.3 mg/dL (8.5-10.1); CREATININE 0.6 mg/dL (0.6-1.3); POTASSIUM 3.6 mmol/L (3.5-5.1)
--- NOTE | 2019-01-05 06:59 | NUR ---
BLACK ASH BURNER OPERATOR NOTE NO CHANGE IN PT'S CONDITION. TOLERATING VENT SETTINGS.GTF INFUSING WELL, O ML RESIDUAL NOTED. ALL NEEDS ATTENDED. WILL ENDORSE TO DAY SHIFT NURSE.
--- NOTE | 2019-01-05 07:51 | NUR ---
BUTTON MACHINE OPERATOR NOTE PT IN BED OBTUNDED, ON VENT/TRACH TOLERATING THE SETTINGS WELL. . ON TELE SR 94 AT THIS [id number]'S. CONDOM CATH IN PLACE DRAINING YELLOWISH COLOR URINE. . GTF JEVITY INFUSING AT 60 ML/HR, O ML RESIDUAL NOTED. KEPT HOB ELEVATED. REPOSITION HIM FOR SKIN MANAGEMENT. KEPT HIM DRY AND CLEAN. ALL NEEDS ATTENDED. SIDE RAILS UP X 3 AND CALL LIGHT WITHIN REACH. WILL CONTINUE TO MONITOR CLOSELY ,DION RM MID LINE IN PLACE ON IVF ORDERED, BED LOWEST AND LOCKED POSITION
[2019-01-05] MEDS: CHLORHEXIDINE GLUCONATE 15 ML UDC MM SCH ×2 (08:38→16:12)
[2019-01-05] MEDS: DOCUSATE SODIUM LIQ 100 MG/10 ML UDC PO SCH ×2 (08:39→16:12)
[2019-01-05] MEDS: METOPROLOL TARTRATE 25 MG TABLET GT SCH ×2 (08:39→21:26)
[2019-01-05] MEDS: ESOMEPRAZOLE MAGNESIUM 40 MG SUSPDR.PKT GT SCH ×2 (08:39→16:12)
[2019-01-05] MEDS: ZINC SULFATE 220 MG CAPSULE GT SCH (08:39)
[2019-01-05] MEDS: FERROUS SULFATE UDC 300 MG/5 ML UDC GT SCH (08:39)
[2019-01-05] MEDS: LEVETIRACETAM SOL (5 ML) 100 MG/ML UDC GT SCH ×2 (08:39→21:25)
[2019-01-05] MEDS: LACTOBACILLUS RHAMNOSUS GG 1 EACH CAP.SPRINK PO SCH ×2 (08:39→16:12)
[2019-01-05] MEDS: TIZANIDINE HCL 4 MG TABLET GT SCH ×2 (08:40→21:25)
[2019-01-05] MEDS: HYDROCODONE/APAP 5/325MG 1 EACH TABLET GT SCH ×3 (08:40→16:12)
[2019-01-05] MEDS: PROSOURCE / PROSTAT (PYXIS) 30 ML UDC GT SCH ×3 (08:40→16:12)
[2019-01-05] MEDS: TOPIRAMATE 25 MG TABLET GT SCH ×2 (08:40→21:26)
[2019-01-05] MEDS: JEVITY 1.2 CAL 1,000 ML BOTTLE GT PRN (08:41)
[2019-01-05] MEDS: DAKINS QUARTER STRENGTH (0.125%) 480 ML BOTTLE TOP SCH (08:41)
[2019-01-05] MEDS: IV NS 0.9% 1,000 ML IV PRN ×2 (09:02→23:09)
--- NOTE | 2019-01-05 10:46 | NUR ---
telemedicine physician note Condom cath changed ,keep clean dry, made a bm, keep clean dry, trach suction done , will cont to monitor closely
--- NOTE | 2019-01-05 12:00 | NUR ---
KNITTING MACHINE FIXER HEAD NOTE ALL NEEDS ATTENDED ,TURN REPOSITION, WILL CONT ON VENT SETTING ORDERED
--- NOTE | 2019-01-05 15:04 | NUR ---
AIR POLLUTION SPECIALIST NOTE REPOSITION DONE, TRACH SUCTIONING
[2019-01-05] MEDS: MULTIVITAMINS,THERAGRAN 1 UDTAB TABLET GT SCH (17:15)
--- NOTE | 2019-01-05 17:47 | NUR ---
CNC MILL AND LATHE OPERATOR NOTE TRACH CARE DONE, ON IVF ORDERED, KEEP CLEAN DRY , CONT ON G TUBE FEEDING ORDERED , KEEP HOB ELEVATED AT ALL TIME , WILL CONT TO MONITOR CLOSELY
--- NOTE | 2019-01-05 19:17 | NUR ---
PAYROLL PROFESSIONAL NOTES RECEIVED PT ON BED.OBTUNDED. ON [facility] VENT SETTING SATURATING 97%. ON TELE MONITOR SR 85. CONDOM CATH DRAINING YELLOW URINE. GTUBE FEEDING @ 60CC/HR. WITH 20CC OF RESIDUAL NOTED. IV ACCES ON DION MID NS @ 75CC/HR, IV ACCESS PATENT AND INTACT. HEAD OF BED ELEVATED. SIDE RAILS UP. CALL LIGHT WITHIN REACH. BED ALARM ON. WILL CONTINUE TO MONITOR PT CLOSELY.
--- NOTE | 2019-01-05 19:54 | NUR ---
PATIENT RECEIVED ON TRACH TO VENT WITH SETTINGS OF AC 12, 500 VT, 40%, +5. SUCTIONED FOR MINIMAL, THICK, YELLOW SECRETIONS. GIVEN IN-LINE TREATMENTS WITH NO ADVERSE REACTIONS. AMBU BAG AT BEDSIDE. VENT AND PULSE OXIMETER ALARMS AUDIBLE AND VISIBLE. VENT IS PLUGGED INTO RED OUTLET. NO DISTRESS/SOB NOTED. Addendum: 01/05/19 at 1955 by JOSEPH BEAULIEU RT Amended: Links added.
[2019-01-05] MEDS: SENNOSIDES 8.6 MG TABLET GT SCH (21:26)
[2019-01-06] VITALS (7 sets, daily range): BP systolic 111–181; BP diastolic 53–97
[2019-01-06] MEDS: JEVITY 1.2 CAL 1,000 ML BOTTLE GT PRN ×2 (01:20→23:42)
[2019-01-06] MEDS: IPRATROPIUM NEB FS 0.5 MG/2.5 ML AMPUL.NEB IH SCH ×4 (01:56→19:25)
[2019-01-06] MEDS: ALBUTEROL FS 2.5 MG/3 ML VIAL.NEB IH SCH ×4 (01:56→19:26)
[2019-01-06] MEDS: PIPERACILLIN /TAZOBACTAM 3.375 G in IV D5W 50 ML IV SCH ×4 (02:34→21:54)
[2019-01-06] MEDS: METOCLOPRAMIDE HCL 10 MG/10 ML UDC GT SCH ×4 (05:17→23:42)
[2019-01-06] MEDS: BACLOFEN (10 MG) 10 MG TABLET GT SCH ×4 (05:17→23:42)
[2019-01-06] MEDS: CHLORHEXIDINE GLUCONATE 15 ML UDC MM SCH ×2 (06:20→17:20)
--- NOTE | 2019-01-06 07:10 | NUR ---
CLERICAL GRADER NOTES NO ACUTE CHANGES NOTED DURING THE SHIFT. PROVIDED COMFORT AND SAFETY. WILL ENDORSE TO THE AM NURSE FOR CONTINUITY OF CARE.
--- NOTE | 2019-01-06 07:30 | NUR ---
RN NOTES PATIENT IN BED, AWAKE, WITH SPONTANEOUS EYE OPENING,NONVERBAL, TRACH AND VENT DEPENDENT. TOLERATING CURRENT VENT SETTING. NOT ON ANY FORM OF DISTRESS. SATING FINE. SUCTIONED FOR AIRWAY PATENCY, SUCTIONED NOTED TO BE WHITE-YELLOWISH, THIN SECRETION. ST ON THE TELEMONITOR WITH HR ON THE 130. PATIENT FACIAL GRIMACE AND BODY COILING NOTED AT THIS TIME. GT FEEDING: JEVITY 1.2 AT 60 CC/HR. GT PLACEMENT CONFIRMED THROUGH ASPIRATING GASTRIC RESIDUAL, NO RESIDUAL TAKEN AT THIS TIME. MIDLINE ON THE DION, WITH ONGOING IVF OF NS AT 75CC/HR. CONDOM CATHETER DRAINING WELL TO GRAVITY TO CLEAR YELLOW URINE. HOB KEPT ELEVATED. SAFETY MEASURES OBSERVED AND MAINTAINED. CALL LIGHT PLACE WITHIN REACH. WILL CONTINUE TO MONITOR AND ANTICIPATE NEEDS
[2019-01-06 07:48] LABS: CREATININE 0.5 mg/dL (0.6-1.3)
[2019-01-06] MEDS: FERROUS SULFATE UDC 300 MG/5 ML UDC GT SCH (08:29)
[2019-01-06] MEDS: METOPROLOL TARTRATE 25 MG TABLET GT SCH ×2 (08:30→21:06)
[2019-01-06] MEDS: LEVETIRACETAM SOL (5 ML) 100 MG/ML UDC GT SCH ×2 (08:30→21:05)
[2019-01-06] MEDS: TIZANIDINE HCL 4 MG TABLET GT SCH ×2 (08:31→21:06)
[2019-01-06] MEDS: HYDROCODONE/APAP 5/325MG 1 EACH TABLET GT SCH ×4 (08:31→17:20)
[2019-01-06] MEDS: LACTOBACILLUS RHAMNOSUS GG 1 EACH CAP.SPRINK PO SCH ×2 (08:31→17:20)
[2019-01-06] MEDS: TOPIRAMATE 25 MG TABLET GT SCH ×2 (08:31→21:04)
[2019-01-06] MEDS: ZINC SULFATE 220 MG CAPSULE GT SCH (08:31)
[2019-01-06] MEDS: ESOMEPRAZOLE MAGNESIUM 40 MG SUSPDR.PKT GT SCH ×2 (08:34→17:20)
[2019-01-06] MEDS: PROSOURCE / PROSTAT (PYXIS) 30 ML UDC GT SCH ×3 (08:35→17:21)
[2019-01-06] MEDS: DOCUSATE SODIUM LIQ 100 MG/10 ML UDC PO SCH ×2 (08:43→17:20)
[2019-01-06] MEDS: DAKINS QUARTER STRENGTH (0.125%) 480 ML BOTTLE TOP SCH (08:44)
--- NOTE | 2019-01-06 09:00 | NUR ---
RN NOTES PATIENT'S HR NOW FLUCTUATING AT 150'S. PATIENT SUCTIONED FOR AIRWAY PATENCY. PATIENT NOT ON DISTRESS OF ANY KIND. PRN PAIN MEDICATION NORCO 5/325 ADMINISTERED FOR PAIN. WILL CLEAN THE PATIENT AND ASSIST THE PATIENT TO ASSUME POSITION OF COMFORT THEN MONITOR FOR ANY CHANGES
--- NOTE | 2019-01-06 09:00 | NUR ---
RN NOTES ADMINISTERED NORCO 5/325 MG VIA GT BUT DOCUMENTATION WAS MISTAKENLY UNDONE
--- NOTE | 2019-01-06 10:00 | NUR ---
RN NOTES PATIENT CALMLY DOZING AT THIS TIME. NO INDICATION OF PAIN OF ANY KIND. HR ON THE 90S TO LOW 100S. WILL CONTINUE TO MONITOR
[2019-01-06 10:27] LABS: BASOPHILS # (AUTO) 0.1 /CMM (0.0-0.2); HEMOGLOBIN 11.2 g/dL (13.5-17.5); MEAN CORPUSCULAR VOLUME 90 fL (80-96); MONOCYTES # (AUTO) 0.7 /CMM (0.1-1.30); PLATELET COUNT (AUTO) 255 /CMM (150-450)
[2019-01-06 10:36] LABS: BASOPHILS % (AUTO) 1.3 % (0.0-2.0); EOSINOPHILS % (AUTO) 3.4 % (0.0-6.0); HEMATOCRIT 34 % (39-51); LYMPHOCYTES % (AUTO) 9.1 % (20.0-44.0); MEAN CORPUSCULAR HGB CONC 33 g/dl (31.0-36.0); NEUTROPHILS # (AUTO) 9.2 /CMM (1.8-8.9); NEUTROPHILS % (AUTO) 80.2 % (43.0-81.0); RED BLOOD CELL COUNT(AUTO) 3.76 MIL/uL (4.5-6.0); WHITE BLOOD COUNT (AUTO) 11.5 K/uL (4.3-11.0)
[2019-01-06] MEDS: IV NS 0.9% 1,000 ML IV PRN (15:17)
[2019-01-06] MEDS: MULTIVITAMINS,THERAGRAN 1 UDTAB TABLET GT SCH (17:20)
--- NOTE | 2019-01-06 19:45 | NUR ---
BLUE LINE TRIMMER NOTE: RECEIVED PT ON BED AWAKE BUT NON VERBAL. NO APPARENT DISTRESS NOTED. NO FACIAL GRIMACING OR ANY SIGNS OF PAIN NOTED. ON [facility] VENT SETTINGS ORDERED. SUCTIONED NEEDED. SINUS RHYTHM ON TELE MONITOR HR 96BPM. GT INTACT AND PATENT, ABLE TO TOLERATE FEEDING WELL. 5ML RESIDUAL NOTED. CONDOM CATH INTACT AND DRAINING WELL. LEFT UPPER ARM MIDLINE INTACT AND PATENT, IVF INFUSING WELL. KEPT CLEAN, DRY AND COMFORTABLE. SAFETY AND FALL PRECAUTIONS OBSERVED AND MAINTAINED. WILL CONTINUE TO MONITOR PT.
[2019-01-06] MEDS: SENNOSIDES 8.6 MG TABLET GT SCH (21:06)
[2019-01-07] VITALS: BP 101/65
[2019-01-07] MEDS: IPRATROPIUM NEB FS 0.5 MG/2.5 ML AMPUL.NEB IH SCH ×4 (00:31→20:29)
[2019-01-07] MEDS: ALBUTEROL FS 2.5 MG/3 ML VIAL.NEB IH SCH ×4 (00:32→20:29)
[2019-01-07 04:00] VITALS: BP 132/75
[2019-01-07] MEDS: IV NS 0.9% 1,000 ML IV PRN ×2 (04:22→17:45)
[2019-01-07] MEDS: BACLOFEN (10 MG) 10 MG TABLET GT SCH ×4 (05:25→23:47)
[2019-01-07] MEDS: METOCLOPRAMIDE HCL 10 MG/10 ML UDC GT SCH ×4 (05:25→23:48)
--- NOTE | 2019-01-07 06:58 | NUR ---
INTERPRETER FOR THE DEAF NOTE: NO CHANGES NOTED THROUGHOUT THE SHIFT. NO APPARENT DISTRESS NOTED. ON [facility] VENT, SETTINGS ORDERED. NO SOB NOTED. SATURATING WELL. SINUS TACHY ON TELE MONITOR HR 110 BPM. LEFT UPPER ARM MIDLINE INTACT AND PATENT, IVF INFUSING WELL. CONDOM CATH INTACT, DRAINING WELL. KEPT CLEAN, DRY AND COMFORTABLE. SAFETY AND FALL PRECAUTIONS OBSERVED AND MAINTAINED. WILL ENDORSE TO DAY SHIFT RN FOR CONTINUITY OF CARE.
[2019-01-07 07:18] LABS: CALCIUM, SERUM 8.6 mg/dL (8.5-10.1); CREATININE 0.6 mg/dL (0.6-1.3); POTASSIUM 3.9 mmol/L (3.5-5.1)
[2019-01-07 08:00] VITALS: BP 122/75
[2019-01-07] MEDS: FERROUS SULFATE UDC 300 MG/5 ML UDC GT SCH (08:58)
[2019-01-07] MEDS: TIZANIDINE HCL 4 MG TABLET GT SCH ×2 (08:58→21:59)
[2019-01-07] MEDS: ZINC SULFATE 220 MG CAPSULE GT SCH (08:58)
[2019-01-07] MEDS: LACTOBACILLUS RHAMNOSUS GG 1 EACH CAP.SPRINK PO SCH ×2 (08:58→16:49)
[2019-01-07] MEDS: TOPIRAMATE 25 MG TABLET GT SCH ×2 (08:58→21:59)
[2019-01-07] MEDS: DOCUSATE SODIUM LIQ 100 MG/10 ML UDC PO SCH ×2 (08:58→16:49)
[2019-01-07] MEDS: HYDROCODONE/APAP 5/325MG 1 EACH TABLET GT SCH ×3 (08:58→16:49)
[2019-01-07] MEDS: LEVETIRACETAM SOL (5 ML) 100 MG/ML UDC GT SCH ×2 (08:58→21:59)
[2019-01-07] MEDS: METOPROLOL TARTRATE 25 MG TABLET GT SCH ×2 (08:59→21:59)
[2019-01-07] MEDS: DAKINS QUARTER STRENGTH (0.125%) 480 ML BOTTLE TOP SCH (08:59)
[2019-01-07] MEDS: PROSOURCE / PROSTAT (PYXIS) 30 ML UDC GT SCH ×3 (09:00→16:49)
[2019-01-07] MEDS: CHLORHEXIDINE GLUCONATE 15 ML UDC MM SCH ×2 (09:03→16:49)
--- NOTE | 2019-01-07 09:15 | NUR ---
RN Note: Dr Rueda at bedside; updated on pt status. No new orders. Will cont to monitor pt.
--- NOTE | 2019-01-07 10:15 | NUR ---
RN Note: Hygienic care rendered, wound care tolerated, large amount of stool noted. Pt tolerated well.
[2019-01-07] MEDS: ESOMEPRAZOLE MAGNESIUM 40 MG SUSPDR.PKT GT SCH ×2 (10:18→16:49)
[2019-01-07 12:00] VITALS: BP_SYST 118; BP_SYST 122; BP_DIAS 62; BP_DIAS 75
--- NOTE | 2019-01-07 14:45 | NUR ---
RN Note: Pt incontinent of bowel, hygienic care rendered, condom cath remains in place. Airway cleared of secretions. Wound care rendered. Will cont to monitor pt.
--- NOTE | 2019-01-07 15:50 | NUR ---
RN Note: Remains in stable condition. Turned and repositioned for comfort. Bedside report given to RN for TWIN.
--- NOTE | 2019-01-07 15:52 | NUR ---
RT PATIENT RECEIVED TRACH'D ON [facility] VENT WITH SETTINGS PER MD ORDER. SALES PROCESS MANAGER DONE. VENT PLUGGED INTO RED OUTLET. ALARMS ON AND AUDIBLE. SPARE TRACH AND AMBU BAG AT BEDSIDE. TX'S GIVEN ORDERED, ADVERSE REACTIONS OBSERVED, NO SOB OR SIGNS OF DISTRESS NOTED. WILL CONTINUE TO MONITOR FOR ANY CHANGES. Addendum: 01/07/19 at 1756 by SARAI STRICKLAND RT Amended: Links added.
[2019-01-07 16:00] VITALS: BP 120/78
--- NOTE | 2019-01-07 16:00 | NUR ---
RN OPENING NOTE RECEIVED PT MIDSHIFT. HE IS AOX0, NONVERBAL, TRACES WITH EYES, AND ON BED REST. HE IS TOLERATING VENT SETTINGS FINE. GTUBE FEEDING IS TOLERATED, NO RESIDUAL NOTED, PT IS IN STABLE CONDITION, WILL CONTINUE TO MONITOR FOR ANY CHANGES.
[2019-01-07] MEDS: MULTIVITAMINS,THERAGRAN 1 UDTAB TABLET GT SCH (17:30)
--- NOTE | 2019-01-07 19:14 | NUR ---
RN CLOSING NOTES PATIENT IS RESTING IN BED COMFORTABLY AT THIS TIME, SHOWS NO S/SX OF RESP DISTRESS OR SOB AT THIS TIME. HE IS TOLERATING VENT SETTINGS WELL. HE IS TOLERATING TUBE FEEDING WELL, NO RESIDUAL. NO ACUTE CHANGES OCCURRED DURING THE SHIFT. VITAL SIGNS ARE STABLE, PT NEEDS HAVE BEEN MET. SAFETY MEASURES HAVE BEEN IMPLEMENTED, CALL LIGHT IS WITHIN REACH, BED IS IN LOWEST AND LOCKED POSITION, SIDE RAILS UP X2, PT HAS BEEN ENDORSED TO NIGHTSHIFT RN FOR CONTINUITY OF CARE.
--- NOTE | 2019-01-07 19:43 | NUR ---
MERCHANDISE COMPLAINT ADJUSTER NOTE: RECEIVED PT ON BED AWAKE BUT NON VERBAL. NO APPARENT DISTRESS NOTED. NO FACIAL GRIMACING OR ANY SIGNS OF PAIN NOTED. ON [facility] VENT SETTINGS ORDERED. SUCTIONED NEEDED. SINUS RHYTHM ON TELE MONITOR HR 86 BPM. GT INTACT AND PATENT, ABLE TO TOLERATE FEEDING WELL. NO RESIDUAL NOTED AT THIS TIME. CONDOM CATH INTACT AND DRAINING WELL. LEFT UPPER ARM MIDLINE INTACT AND PATENT, IVF INFUSING WELL. KEPT CLEAN, DRY AND COMFORTABLE. SAFETY AND FALL PRECAUTIONS OBSERVED AND MAINTAINED. WILL CONTINUE TO MONITOR PT.
[2019-01-07 20:00] VITALS: BP 123/75
[2019-01-07] MEDS: SENNOSIDES 8.6 MG TABLET GT SCH (21:59)
[2019-01-07] MEDS: JEVITY 1.2 CAL 1,000 ML BOTTLE GT PRN (23:00)
[2019-01-08] VITALS: BP 110/72
[2019-01-08] MEDS: ALBUTEROL FS 2.5 MG/3 ML VIAL.NEB IH SCH ×4 (02:05→20:10)
[2019-01-08] MEDS: IPRATROPIUM NEB FS 0.5 MG/2.5 ML AMPUL.NEB IH SCH ×4 (02:05→20:09)
[2019-01-08 04:00] VITALS: BP 133/80
[2019-01-08] MEDS: METOCLOPRAMIDE HCL 10 MG/10 ML UDC GT SCH ×3 (05:48→17:39)
[2019-01-08] MEDS: BACLOFEN (10 MG) 10 MG TABLET GT SCH ×3 (05:48→17:40)
[2019-01-08] MEDS: IV NS 0.9% 1,000 ML IV PRN ×2 (06:30→21:15)
[2019-01-08] MEDS: CHLORHEXIDINE GLUCONATE 15 ML UDC MM SCH ×2 (06:31→17:39)
--- NOTE | 2019-01-08 06:42 | NUR ---
FINANCIAL REPORTING ACCOUNTANT NOTE: NO CHANGES NOTED THROUGHOUT THE SHIFT. NO APPARENT DISTRESS NOTED. [facility], SETTINGS ORDERED. NO SOB NOTED. SATURATING WELL. SINUS TACHY ON TELE MONITOR HR 118 BPM. LEFT UPPER ARM MIDLINE INTACT AND PATENT, IVF INFUSING WELL. CONDOM CATH INTACT, DRAINED 1800 ML OF URINE OUTPUT. KEPT CLEAN, DRY AND COMFORTABLE. SAFETY AND FALL PRECAUTIONS OBSERVED AND MAINTAINED. WILL ENDORSE TO DAY SHIFT RN FOR CONTINUITY OF CARE.
[2019-01-08 06:59] LABS: BASOPHILS % (AUTO) 0.3 % (0.0-2.0); EOSINOPHILS % (AUTO) 3.3 % (0.0-6.0); HEMATOCRIT 32 % (39-51); HEMOGLOBIN 10.8 g/dL (13.5-17.5); LYMPHOCYTES % (AUTO) 9.3 % (20.0-44.0); MEAN CORPUSCULAR HGB CONC 34 g/dl (31.0-36.0); MEAN CORPUSCULAR VOLUME 89 fL (80-96); MONOCYTES # (AUTO) 0.7 /CMM (0.1-1.30); NEUTROPHILS # (AUTO) 8.6 /CMM (1.8-8.9); NEUTROPHILS % (AUTO) 80.1 % (43.0-81.0); PLATELET COUNT (AUTO) 440 /CMM (150-450); RED BLOOD CELL COUNT(AUTO) 3.59 MIL/uL (4.5-6.0); WHITE BLOOD COUNT (AUTO) 10.7 K/uL (4.3-11.0)
[2019-01-08 07:22] LABS: CALCIUM, SERUM 9.2 mg/dL (8.5-10.1); CREATININE 0.5 mg/dL (0.6-1.3); MAGNESIUM 2.2 mg/dL (1.8-2.4); PHOSPHORUS 3.6 mg/dL (2.5-4.9); POTASSIUM 4.2 mmol/L (3.5-5.1)
--- NOTE | 2019-01-08 07:30 | NUR ---
TELE/RN OPENING NOTES RECEIVED PATIENT IN BED RESTING COMFORTABLY. ABLE TO RESPOND TO TACTILE STIMULI. NO FACIAL GRIMACING OR ACUTE DISTRESS AT THIS TIME. PATIENT ABLE TO TOLERATE CURRENT VENT SETTINGS WELL. SUCTIONED NEEDED. SINUS RHYTHM ON TELE MONITOR HR 90'S BPM. HOB ELEVATED AT ALL TIMES. GT INTACT AND PATENT, ABLE TO TOLERATE FEEDING WELL. NO RESIDUAL NOTED AT THIS TIME. PATIENT ALSO NOTED WITH CONDOM CATH INTACT AND DRAINING WELL. LEFT UPPER ARM MIDLINE INTACT AND PATENT, IVF INFUSING WELL. ALL NEEDS ANTICIPATED. CALL LIGHT WITHIN REACHED. BED LOCKED AND IN LOWEST POSITION. SAFETY MAINTAINED. WILL CONTINUE TO MONITOR CLOSELY.
[2019-01-08 08:00] VITALS: BP 142/94
--- NOTE | 2019-01-08 08:18 | NUR ---
RT NOTE PT RECEIVED ON [facility] VENT ON THE FOLLOWING NOTED SETTINGS. PT SX'D: LARGE THIN/THICK YELLOW SECRETIONS. BREATHING TX GIVEN, ALBUTEROL HELD DUE TO HIGH HR. PT'S TRACH IS PATENT AND SECURE. VENT IS PLUGGED INTO RED OUTLET AND ALARMS ARE ON AND AUDIBLE. AMBU BAG AND SPARE TRACH ARE AT BEDSIDE. WILL CONT TO MONITOR PT. Addendum: 01/08/19 at 0820 by KEENA SULLIVAN RT Amended: Links added.
[2019-01-08] MEDS: DOCUSATE SODIUM LIQ 100 MG/10 ML UDC PO SCH ×2 (08:28→17:39)
[2019-01-08] MEDS: TOPIRAMATE 25 MG TABLET GT SCH ×2 (08:28→21:08)
[2019-01-08] MEDS: FERROUS SULFATE UDC 300 MG/5 ML UDC GT SCH (08:28)
[2019-01-08] MEDS: HYDROCODONE/APAP 5/325MG 1 EACH TABLET GT SCH ×3 (08:28→17:40)
[2019-01-08] MEDS: TIZANIDINE HCL 4 MG TABLET GT SCH ×2 (08:28→21:08)
[2019-01-08] MEDS: LEVETIRACETAM SOL (5 ML) 100 MG/ML UDC GT SCH ×2 (08:28→20:55)
[2019-01-08] MEDS: ZINC SULFATE 220 MG CAPSULE GT SCH (08:28)
[2019-01-08] MEDS: LACTOBACILLUS RHAMNOSUS GG 1 EACH CAP.SPRINK PO SCH ×2 (08:28→17:40)
[2019-01-08] MEDS: METOPROLOL TARTRATE 25 MG TABLET GT SCH ×2 (08:29→20:56)
[2019-01-08] MEDS: DAKINS QUARTER STRENGTH (0.125%) 480 ML BOTTLE TOP SCH (08:29)
[2019-01-08] MEDS: PROSOURCE / PROSTAT (PYXIS) 30 ML UDC GT SCH ×3 (08:29→17:40)
[2019-01-08] MEDS: ESOMEPRAZOLE MAGNESIUM 40 MG SUSPDR.PKT GT SCH ×2 (08:36→17:43)
[2019-01-08 12:00] VITALS: BP_SYST 101; BP_SYST 115; BP_DIAS 61; BP_DIAS 68
[2019-01-08 16:00] VITALS: BP_SYST 115; BP_SYST 118; BP_DIAS 64; BP_DIAS 72
[2019-01-08] MEDS: MULTIVITAMINS,THERAGRAN 1 UDTAB TABLET GT SCH (17:40)
--- NOTE | 2019-01-08 19:09 | NUR ---
TELE/RN CLOSING NOTES PATIENT CONTINUES TO REMAIN IN STABLE CONDITION THROUGHOUT THE SHIFT. PROVIDED COMFORT AND SAFETY. PATIENT IS SUCTIONED NEEDED. SINUS RHYTHM ON TELE MONITOR HR 80'S BPM. HOB ELEVATED AT ALL TIMES. GT INTACT AND PATENT, ABLE TO TOLERATE FEEDING WELL. NO RESIDUAL NOTED AT THIS TIME. PATIENT ALSO NOTED WITH CONDOM CATH INTACT AND DRAINING WELL. LEFT UPPER ARM MIDLINE INTACT AND PATENT, IVF INFUSING WELL. ALL NEEDS ANTICIPATED. CALL LIGHT WITHIN REACHED. BED LOCKED AND IN LOWEST POSITION. SAFETY MAINTAINED. WILL CONTINUE TO MONITOR CLOSELY. ENDORSED TO PM NURSE FOR TWIN.
[2019-01-08 20:00] VITALS: BP_SYST 111; BP_SYST 116; BP_DIAS 61
[2019-01-08] MEDS: SENNOSIDES 8.6 MG TABLET GT SCH (22:16)
[2019-01-08] MEDS: JEVITY 1.2 CAL 1,000 ML BOTTLE GT PRN (22:44)
--- NOTE | 2019-01-08 23:50 | NUR ---
RECEIVED PT ON BED AWAKE BUT NON VERBAL. NO APPARENT DISTRESS NOTED. NO FACIAL GRIMACING OR ANY SIGNS OF PAIN NOTED. ON THE [facility] VENT SETTINGS ORDERED. V/S STABLE AFEBRILE HOB ELEVATED AT ALL TIMES ,SUCTIONED NEEDED. SINUS RHYTHM ON TELE MONITOR HR 96BPM. GT INTACT AND PATENT, ABLE TO TOLERATE FEEDING WELL. NO RESIDUAL NOTED. CONDOM CATH INTACT AND DRAINING WELL. LEFT UPPER ARM MIDLINE INTACT AND PATENT, IVF NS AT 75CC/HR INFUSING WELL. KEPT CLEAN, DRY AND COMFORTABLE. SAFETY AND FALL PRECAUTIONS OBSERVED AND MAINTAINED. WILL CONTINUE TO MONITOR PT.
[2019-01-09] VITALS: BP 102/69
--- NOTE | 2019-01-09 | NUR ---
ELECTRONIC LAB TECHNICIAN NOTES DUE MEDS GIVEN A ORDERED , PTS COMFORTABLE IN BED .SATING 100%NO SOB NO DISTRESS NOTED .
[2019-01-09] MEDS: BACLOFEN (10 MG) 10 MG TABLET GT SCH ×4 (00:31→17:26)
[2019-01-09] MEDS: METOCLOPRAMIDE HCL 10 MG/10 ML UDC GT SCH ×4 (00:32→17:26)
[2019-01-09] MEDS: ALBUTEROL FS 2.5 MG/3 ML VIAL.NEB IH SCH ×4 (00:37→20:00)
[2019-01-09] MEDS: IPRATROPIUM NEB FS 0.5 MG/2.5 ML AMPUL.NEB IH SCH ×4 (00:37→20:00)
[2019-01-09 04:00] VITALS: BP 144/66
[2019-01-09] MEDS: CHLORHEXIDINE GLUCONATE 15 ML UDC MM SCH ×2 (06:19→17:26)
--- NOTE | 2019-01-09 07:25 | NUR ---
TELE/RN OPENING NOTES RECEIVED PATIENT IN BED AWAKE AND RESTING COMFORTABLY. PATIENT ABLE TO RESPOND TO TACTILE STIMULI. NO FACIAL GRIMACING OR ACUTE DISTRESS AT THIS TIME. PATIENT ABLE TO TOLERATE CURRENT VENT SETTINGS WELL. SUCTIONED NEEDED. PATIENT ON TELE MONITOR HR 90'S BPM. HOB ELEVATED AT ALL TIMES. GT INTACT AND PATENT, ABLE TO TOLERATE FEEDING WELL. NO RESIDUAL NOTED AT THIS TIME. PATIENT ALSO NOTED WITH CONDOM CATH INTACT AND DRAINING WELL. LEFT UPPER ARM MIDLINE INTACT AND PATENT, IVF INFUSING WELL. ALL NEEDS ANTICIPATED. CALL LIGHT WITHIN REACHED. BED LOCKED AND IN LOWEST POSITION. SAFETY MAINTAINED. WILL CONTINUE TO MONITOR CLOSELY.
[2019-01-09 07:58] LABS: BASOPHILS % (AUTO) 0.3 % (0.0-2.0); EOSINOPHILS % (AUTO) 3.8 % (0.0-6.0); HEMATOCRIT 31 % (39-51); HEMOGLOBIN 10.2 g/dL (13.5-17.5); LYMPHOCYTES # (AUTO) 1.1 /CMM (0.8-4.8); LYMPHOCYTES % (AUTO) 9.6 % (20.0-44.0); MEAN CORPUSCULAR HGB CONC 33 g/dl (31.0-36.0); MEAN CORPUSCULAR VOLUME 91 fL (80-96); MONOCYTES # (AUTO) 0.9 /CMM (0.1-1.30); MONOCYTES % (AUTO) 8.1 % (2.0-12.0); NEUTROPHILS # (AUTO) 8.7 /CMM (1.8-8.9); NEUTROPHILS % (AUTO) 78.2 % (43.0-81.0); PLATELET COUNT (AUTO) 403 /CMM (150-450); RED BLOOD CELL COUNT(AUTO) 3.42 MIL/uL (4.5-6.0); WHITE BLOOD COUNT (AUTO) 11.1 K/uL (4.3-11.0)
[2019-01-09 08:00] VITALS: BP 117/69
[2019-01-09 08:23] LABS: CALCIUM, SERUM 8.9 mg/dL (8.5-10.1); CREATININE 0.5 mg/dL (0.6-1.3); MAGNESIUM 2.2 mg/dL (1.8-2.4); PHOSPHORUS 3.5 mg/dL (2.5-4.9); POTASSIUM 4.1 mmol/L (3.5-5.1)
[2019-01-09] MEDS: ESOMEPRAZOLE MAGNESIUM 40 MG SUSPDR.PKT GT SCH ×2 (08:34→17:26)
[2019-01-09] MEDS: LACTOBACILLUS RHAMNOSUS GG 1 EACH CAP.SPRINK PO SCH ×2 (08:34→17:26)
[2019-01-09] MEDS: FERROUS SULFATE UDC 300 MG/5 ML UDC GT SCH (08:34)
[2019-01-09] MEDS: DOCUSATE SODIUM LIQ 100 MG/10 ML UDC PO SCH ×2 (08:34→17:26)
[2019-01-09] MEDS: LEVETIRACETAM SOL (5 ML) 100 MG/ML UDC GT SCH ×2 (08:34→21:27)
[2019-01-09] MEDS: HYDROCODONE/APAP 5/325MG 1 EACH TABLET GT SCH ×3 (08:34→17:26)
[2019-01-09] MEDS: ZINC SULFATE 220 MG CAPSULE GT SCH (08:34)
[2019-01-09] MEDS: TIZANIDINE HCL 4 MG TABLET GT SCH ×2 (08:35→21:27)
[2019-01-09] MEDS: METOPROLOL TARTRATE 25 MG TABLET GT SCH ×2 (08:35→21:27)
[2019-01-09] MEDS: TOPIRAMATE 25 MG TABLET GT SCH ×2 (08:36→21:27)
[2019-01-09] MEDS: DAKINS QUARTER STRENGTH (0.125%) 480 ML BOTTLE TOP SCH (08:36)
[2019-01-09] MEDS: PROSOURCE / PROSTAT (PYXIS) 30 ML UDC GT SCH ×3 (08:36→17:27)
[2019-01-09] MEDS: IV NS 0.9% 1,000 ML IV PRN (11:31)
[2019-01-09 12:00] VITALS: BP 109/64
[2019-01-09 16:00] VITALS: BP 138/90
[2019-01-09] MEDS: JEVITY 1.2 CAL 1,000 ML BOTTLE GT PRN (16:03)
[2019-01-09] MEDS: MULTIVITAMINS,THERAGRAN 1 UDTAB TABLET GT SCH (17:26)
--- NOTE | 2019-01-09 19:28 | NUR ---
TELE/RN CLOSING NOTES PATIENT CONTINUES TO REMAIN IN STABLE CONDITION THROUGHOUT THE SHIFT. PROVIDED COMFORT AND SAFETY. PATIENT ABLE TO TOLERATE CURRENT VENT SETTINGS WELL. SUCTIONED NEEDED. PATIENT ON TELE MONITOR HR 85'S BPM. HOB ELEVATED AT ALL TIMES. GT INTACT AND PATENT, ABLE TO TOLERATE FEEDING WELL. NO RESIDUAL NOTED AT THIS TIME. PATIENT ALSO NOTED WITH CONDOM CATH INTACT AND DRAINING WELL. LEFT UPPER ARM MIDLINE INTACT AND PATENT, IVF INFUSING WELL. ALL NEEDS ANTICIPATED. CALL LIGHT WITHIN REACHED. BED LOCKED AND IN LOWEST POSITION. SAFETY MAINTAINED. WILL CONTINUE TO MONITOR CLOSELY. ENDORSED TO PM NURSE FOR TWIN.
[2019-01-09 20:00] VITALS: BP 120/78
--- NOTE | 2019-01-09 20:20 | NUR ---
RT NOTE PT RECEIVED TRACHED ON [facility] VENT ON CHARTED SETTINGS. NO SIGNS OF RESP DISTRESS/SOB NOTED AT THIS TIME. AIRWAY PATENT AND SECURED. SPECIAL AGENT SECRET SERVICE DONE. PT SUCTIONED. HHN TX GIVEN. NO ADVERSE REACTIONS NOTED. ALARMS SET AND AUDIBLE. AMBUBAG AT BEDSIDE. VENT CONNECTED TO RED OUTLET. WILL CONT TO MONITOR. Addendum: 01/09/19 at 2020 by MARIA LUISA RODGERS RT Amended: Links added.
[2019-01-09] MEDS: SENNOSIDES 8.6 MG TABLET GT SCH (21:27)
[2019-01-10] VITALS (7 sets, daily range): BP systolic 120–156; BP diastolic 70–85
[2019-01-10] MEDS: BACLOFEN (10 MG) 10 MG TABLET GT SCH ×4 (00:01→18:20)
[2019-01-10] MEDS: METOCLOPRAMIDE HCL 10 MG/10 ML UDC GT SCH ×4 (00:01→18:20)
[2019-01-10] MEDS: ALBUTEROL FS 2.5 MG/3 ML VIAL.NEB IH SCH ×4 (01:30→19:10)
[2019-01-10] MEDS: IPRATROPIUM NEB FS 0.5 MG/2.5 ML AMPUL.NEB IH SCH ×4 (01:30→19:10)
[2019-01-10] MEDS: IV NS 0.9% 1,000 ML IV PRN ×2 (02:42→14:08)
[2019-01-10] MEDS: CHLORHEXIDINE GLUCONATE 15 ML UDC MM SCH ×2 (05:27→17:53)
--- NOTE | 2019-01-10 06:55 | NUR ---
HAD X3 BM OVERNIGHT ,LAST ONE IS DIARRHEA. KEPT CLEAN AND DRY, ORAL CARE PROVIDED,CONDOM CATH CHANGED X1 , TACHY WHEN HAVING MUSCLE SPASM. REPOSITIONED FOR COMFORT,TOLERATING GT FEEDING WITH NO RESIDUAL, NO SIGNIFICANT EVENT OVERNIGHT ,VSS,AFEBRILE, ON VENT SUPPORT WITHOUT PROBLEM.
[2019-01-10 08:00] LABS: BASOPHILS % (AUTO) 0.5 % (0.0-2.0); HEMATOCRIT 33 % (39-51); HEMOGLOBIN 10.7 g/dL (13.5-17.5); LYMPHOCYTES # (AUTO) 0.9 /CMM (0.8-4.8); LYMPHOCYTES % (AUTO) 9.1 % (20.0-44.0); MEAN CORPUSCULAR HGB CONC 33 g/dl (31.0-36.0); MEAN CORPUSCULAR VOLUME 93 fL (80-96); MONOCYTES # (AUTO) 0.7 /CMM (0.1-1.30); MONOCYTES % (AUTO) 7.1 % (2.0-12.0); NEUTROPHILS # (AUTO) 8.2 /CMM (1.8-8.9); NEUTROPHILS % (AUTO) 80.3 % (43.0-81.0); PLATELET COUNT (AUTO) 265 /CMM (150-450); RED BLOOD CELL COUNT(AUTO) 3.54 MIL/uL (4.5-6.0); WHITE BLOOD COUNT (AUTO) 10.2 K/uL (4.3-11.0)
[2019-01-10] MEDS: DOCUSATE SODIUM LIQ 100 MG/10 ML UDC PO SCH ×2 (09:00→17:00)
[2019-01-10 10:16] LABS: CREATININE 0.5 mg/dL (0.6-1.3); MAGNESIUM 2.1 mg/dL (1.8-2.4); PHOSPHORUS 3.3 mg/dL (2.5-4.9); POTASSIUM 3.9 mmol/L (3.5-5.1)
[2019-01-10] MEDS: DAKINS QUARTER STRENGTH (0.125%) 480 ML BOTTLE TOP SCH (11:00)
[2019-01-10] MEDS: ZINC SULFATE 220 MG CAPSULE GT SCH (11:21)
[2019-01-10] MEDS: TOPIRAMATE 25 MG TABLET GT SCH ×2 (11:21→20:15)
[2019-01-10] MEDS: PROSOURCE / PROSTAT (PYXIS) 30 ML UDC GT SCH ×3 (11:22→18:20)
[2019-01-10] MEDS: HYDROCODONE/APAP 5/325MG 1 EACH TABLET GT SCH ×3 (11:22→18:20)
[2019-01-10] MEDS: TIZANIDINE HCL 4 MG TABLET GT SCH ×2 (11:23→20:16)
[2019-01-10] MEDS: ESOMEPRAZOLE MAGNESIUM 40 MG SUSPDR.PKT GT SCH ×2 (11:23→18:27)
[2019-01-10] MEDS: LACTOBACILLUS RHAMNOSUS GG 1 EACH CAP.SPRINK PO SCH ×2 (11:23→18:20)
[2019-01-10] MEDS: METOPROLOL TARTRATE 25 MG TABLET GT SCH ×2 (11:24→20:16)
[2019-01-10] MEDS: FERROUS SULFATE UDC 300 MG/5 ML UDC GT SCH (11:25)
[2019-01-10] MEDS: LEVETIRACETAM SOL (5 ML) 100 MG/ML UDC GT SCH ×2 (11:27→20:16)
[2019-01-10] MEDS: JEVITY 1.2 CAL 1,000 ML BOTTLE GT PRN (12:06)
--- NOTE | 2019-01-10 13:49 | NUR ---
RN NOTE NORCO SCHEDULED FOR 1300 NOT GIVEN BECAUSE MORNING DOSE GIVEN LATE. WILL ADMINISTER NEXT DOSE.
[2019-01-10] MEDS: MULTIVITAMINS,THERAGRAN 1 UDTAB TABLET GT SCH (18:20)
[2019-01-10] MEDS: SENNOSIDES 8.6 MG TABLET GT SCH (20:17)
--- NOTE | 2019-01-10 20:33 | NUR ---
RN NOTE HELD SENNOKOTE DUE TO LOOSE STOOL, IS AWARE
[2019-01-10] MEDS: ACETAMINOPHEN 650 MG/20.3 ML UDC NG PRN (21:03)
[2019-01-11] VITALS: BP 105/71
[2019-01-11] MEDS: BACLOFEN (10 MG) 10 MG TABLET GT SCH ×3 (00:22→12:49)
[2019-01-11] MEDS: METOCLOPRAMIDE HCL 10 MG/10 ML UDC GT SCH ×3 (00:22→12:49)
[2019-01-11] MEDS: IPRATROPIUM NEB FS 0.5 MG/2.5 ML AMPUL.NEB IH SCH ×3 (01:36→13:20)
[2019-01-11] MEDS: ALBUTEROL FS 2.5 MG/3 ML VIAL.NEB IH SCH ×3 (01:36→13:20)
--- NOTE | 2019-01-11 03:39 | NUR ---
RT Pt trach remains on [facility] vent t/o the night. no weaning or changes at this time. trach secure and patent. Addendum: 01/11/19 at 0340 by AMANDA KUHN RT Amended: Links added.
[2019-01-11 04:00] VITALS: BP 123/79
[2019-01-11] MEDS: JEVITY 1.2 CAL 1,000 ML BOTTLE GT PRN (05:30)
[2019-01-11] MEDS: IV NS 0.9% 1,000 ML IV PRN (05:46)
[2019-01-11 06:41] LABS: BASOPHILS % (AUTO) 0.2 % (0.0-2.0); EOSINOPHILS % (AUTO) 3.7 % (0.0-6.0); HEMATOCRIT 32 % (39-51); HEMOGLOBIN 10.5 g/dL (13.5-17.5); LYMPHOCYTES # (AUTO) 1.2 /CMM (0.8-4.8); MEAN CORPUSCULAR HGB CONC 33 g/dl (31.0-36.0); MEAN CORPUSCULAR VOLUME 90 fL (80-96); MONOCYTES # (AUTO) 0.9 /CMM (0.1-1.30); MONOCYTES % (AUTO) 8.5 % (2.0-12.0); NEUTROPHILS # (AUTO) 7.7 /CMM (1.8-8.9); NEUTROPHILS % (AUTO) 75.6 % (43.0-81.0); PLATELET COUNT (AUTO) 374 /CMM (150-450); WHITE BLOOD COUNT (AUTO) 10.2 K/uL (4.3-11.0)
--- NOTE | 2019-01-11 06:53 | NUR ---
RN NOTE PATIENT IS STABLE, NO DISTRESS NOTED, ALL SAFETY MEASURES TAKEN, TURNED AND REPOSITIONED Q 2HOURS, ENDORSED TO AM SHIFT TO CONTINUE CARE
[2019-01-11] MEDS: CHLORHEXIDINE GLUCONATE 15 ML UDC MM SCH (07:00)
--- NOTE | 2019-01-11 07:53 | NUR ---
RT Pt received trached on the vent with noted settings. Pt is awake but does not follow commands. Vent alarms are set and audible. Vent is plugged into red outlet. HHN tx tolerated well with no adverse reactions. No respiratory distress noted at this time. Addendum: 01/11/19 at 1030 by MARA SHORT RT Amended: Links added.
[2019-01-11 08:00] VITALS: BP 130/70
[2019-01-11 08:42] LABS: CALCIUM, SERUM 8.5 mg/dL (8.5-10.1); CREATININE 0.5 mg/dL (0.6-1.3); MAGNESIUM 1.9 mg/dL (1.8-2.4); POTASSIUM 3.8 mmol/L (3.5-5.1)
[2019-01-11] MEDS: DOCUSATE SODIUM LIQ 100 MG/10 ML UDC PO SCH (09:00)
[2019-01-11] MEDS: ESOMEPRAZOLE MAGNESIUM 40 MG SUSPDR.PKT GT SCH (09:28)
[2019-01-11] MEDS: ZINC SULFATE 220 MG CAPSULE GT SCH (09:29)
[2019-01-11] MEDS: LEVETIRACETAM SOL (5 ML) 100 MG/ML UDC GT SCH (09:29)
[2019-01-11] MEDS: FERROUS SULFATE UDC 300 MG/5 ML UDC GT SCH (09:29)
[2019-01-11] MEDS: METOPROLOL TARTRATE 25 MG TABLET GT SCH (09:31)
[2019-01-11] MEDS: HYDROCODONE/APAP 5/325MG 1 EACH TABLET GT SCH ×2 (09:33→13:39)
[2019-01-11] MEDS: TOPIRAMATE 25 MG TABLET GT SCH (09:34)
[2019-01-11] MEDS: TIZANIDINE HCL 4 MG TABLET GT SCH (09:34)
[2019-01-11] MEDS: PROSOURCE / PROSTAT (PYXIS) 30 ML UDC GT SCH ×2 (09:35→12:50)
[2019-01-11] MEDS: LACTOBACILLUS RHAMNOSUS GG 1 EACH CAP.SPRINK PO SCH (09:35)
[2019-01-11] MEDS: DAKINS QUARTER STRENGTH (0.125%) 480 ML BOTTLE TOP SCH (09:36)
[2019-01-11] MEDS ORDERED: CLOTRIMAZOLE 1% 15 GM TUBE TP SCH (10:30)
[2019-01-11 12:00] VITALS: BP 133/78
[2019-01-11] MEDS: ACETAMINOPHEN 650 MG/20.3 ML UDC NG PRN (14:15)
--- NOTE | 2019-01-11 15:30 | NUR ---
rn note pt discharged to [facility], transported with rt and rn, pt stable, exit care done, discharge paperwork done, pt unable to comprehend or verbalize understanding, pictures taken and placed in chart, med recon done by dr Ybarra, copies provided to subacute, report given to FARRUKH Curry. midline left in place just in case, may remove there.
[2019-01-11] MEDS ORDERED: LACT-209 (17:12)
== END 2019-01-11 15:15 | DRG 853 ==
LOC: ER 02:20 → TELE1 06:07 → ICU 14:40 → TELE-TD 01-01 21:45 → TELE1 01-02 10:16
PROVIDERS: ADMIT Legal Medicine; ATTEND Student in an Organized Health Care Education/Training Program
PROC: 5A1955Z Respiratory Ventilation, Greater than 96 Consecutive Hours (ICD-10-PCS; principal; 2018-12-28)
PROC: 0KBP0ZZ Excision of Left Hip Muscle, Open Approach (ICD-10-PCS; 2018-12-29)
PROC: 0KBN0ZZ Excision of Right Hip Muscle, Open Approach (ICD-10-PCS; 2018-12-29)
PROC: 05H533Z Insertion of Infusion Device into Right Subclavian Vein, Percutaneous Approach (ICD-10-PCS; 2018-12-29)
PROC: 05H633Z Insertion of Infusion Device into Left Subclavian Vein, Percutaneous Approach (ICD-10-PCS; 2019-01-04)
PROC: 0QB10ZZ Excision of Sacrum, Open Approach (ICD-10-PCS; 2019-01-08)
DX: A41.9 Sepsis, unspecified organism (principal); L89.154 Pressure ulcer of sacral region, stage 4; J69.0 Pneumonitis due to inhalation of food and vomit; J96.21 Acute and chronic respiratory failure with hypoxia; R53.2 Functional quadriplegia; R65.21 Severe sepsis with septic shock; G93.1 Anoxic brain damage, not elsewhere classified; Z99.11 Dependence on respirator [ventilator] status; J95.851 Ventilator associated pneumonia; N39.0 Urinary tract infection, site not specified; K92.2 Gastrointestinal hemorrhage, unspecified; I12.9 Hypertensive chronic kidney disease with stage 1 through stage 4 chronic kidney disease, or unspecified chronic kidney disease; G40.909 Epilepsy, unspecified, not intractable, without status epilepticus; Z87.440 Personal history of urinary (tract) infections; Z86.73 Personal history of transient ischemic attack (TIA), and cerebral infarction without residual deficits; S81.802A Unspecified open wound, left lower leg, initial encounter; S81.801A Unspecified open wound, right lower leg, initial encounter; X58.XXXA Exposure to other specified factors, initial encounter; Y93.9 Activity, unspecified; Y92.129 Unspecified place in nursing home as the place of occurrence of the external cause; M24.542 Contracture, left hand; M24.541 Contracture, right hand; B96.5 Pseudomonas (aeruginosa) (mallei) (pseudomallei) as the cause of diseases classified elsewhere; N18.9 Chronic kidney disease, unspecified; R13.10 Dysphagia, unspecified; Y83.3 Surgical operation with formation of external stoma as the cause of abnormal reaction of the patient, or of later complication, without mention of misadventure at the time of the procedure; Y72.8 Miscellaneous otorhinolaryngological devices associated with adverse incidents, not elsewhere classified; Z86.61 Personal history of infections of the central nervous system; Z86.718 Personal history of other venous thrombosis and embolism; D64.9 Anemia, unspecified
CPT/HCPCS: 31720; 36415; 36569; 70360-TC; 71045-TC; 76770-TC; 80048-TC; 80076-TC; 80202-TC; 81000-TC; 83605-TC; 83735-TC; 84100-TC; 84484-TC; 85025-TC; 85730-TC; 87040-TC; 87070-TC; 87081-TC; 87086-TC; 87186-TC; 93970-TC; 94002-TC; 94003-TC; 94760-TC; 94762-TC; 94799-TC; 99082-TC; A4349; A4623; A4624; A6253; A6403; A6407; A7526; G0378; J0692; J1953; J2185; J2405; J2543; J3370; J3480; J7030; J7050; J7060; J7070; J8597

== ENCOUNTER 2019-01-09 16:15 | Inpatient (IN) | payer OTHER ==
[~2019-01-09] VITALS: Ht 165.1 cm; Wt 59.4 kg
[~2019-01-09 16:15] MED LIST changes: -AMIN30LI27 GT; +DOCU50LI GT; -DOCU50LI PO; -RIVA10TA GT
--- NOTE | 2019-01-11 16:00 | NUR ---
Admitted 23-year-old male pt from [facility] with diagnoses of Chronic Hypoxemic Respiratory Failure, Ventilator Dependent, Tracheostomy, Anoxic Brain Encephalopathy, PVS, Seizure Disorder, GT, Right Upper Lobe VAP, UTI, Sacral Pressure Ulcer St 4, HTN, Chronic Anemia. Pt on mechanical vent LTV 1200 with setting of AC 12 VT 500 FiO2 40% PEEP +5. He has a tracheostomy tube Portex # 8. Started GT feeding Jevity 1.2 at 60 mL/hr. HOB elevated to prevent aspiration. Verified orders with Dr Ybarra. Made pt clean and comfortable in bed. No pain or discomfort noted. T 99.1 P 78 BP 114/77 R 12 O2 sat 100%. Call light within easy reach.
--- NOTE | 2019-01-11 16:11 | NUR ---
RT NOTE PT REC'D TRACHED ON MECHANICAL VENTILATION ON CHARTED SETTINGS PER MD ORDER. PT IS AWAKE, UNABLE TO COMMUNICATE. NO SOB NOTED AT THIS TIME. TRACH TUBE SECURE AND IN PLACE. BACK UP TRACH BEDSIDE. BVM AT [facility]. VENT PLUGGED IN RED OUTLET, ALARMS ON AND AUDIBLE. WILL CONTINUE TO MONITOR. Addendum: 01/11/19 at 1614 by CHINA CAMARENA RT Amended: Links added.
[2019-01-11] MEDS ORDERED: LACT-209 (17:12)
[2019-01-11] MEDS ORDERED: ACETAMINOPHEN 650 MG/20 ML UDC- SA PATIENTS-PAIN ONLY GT PRN (18:30)
[2019-01-11] MEDS ORDERED: MAGNESIUM HYDROXIDE 30 ML UDC GT PRN (18:30)
[2019-01-11] MEDS ORDERED: HYDROCODONE/APAP 5/325MG 1 EACH TABLET GT PRN (18:30)
[2019-01-11] MEDS ORDERED: BISACODYL SUPP (10 MG) 10 MG/SUPP.RECT SUPP.RECT RC PRN (18:30)
[2019-01-11] MEDS ORDERED: JEVITY 1.2 CAL 1,000 ML BOTTLE GT PRN (18:30)
[2019-01-11] MEDS ORDERED: NA PHOS,M-B/NA PHOS,DI-BA 1 EA ENEMA RC PRN (18:30)
[2019-01-11] MEDS ORDERED: MAG HYDROX/AL HYDROX/SIMETH 30 ML UDC GT PRN (18:30)
[2019-01-11] MEDS ORDERED: IPRATROPIUM NEB FS 0.5 MG/2.5 ML AMPUL.NEB IH PRN (18:30)
[2019-01-11] MEDS: IPRATROPIUM NEB FS 0.5 MG/2.5 ML AMPUL.NEB IH SCH (18:53)
[2019-01-11] MEDS: ALBUTEROL FS 2.5 MG/3 ML VIAL.NEB IH SCH (18:53)
--- NOTE | 2019-01-11 20:00 | NUR ---
RN NOTES Received pt in bed awake and alert with no respiratory distress. Pt on ventilator with prescribed settings. Pt in stable condition. Will continue to monitor.
[2019-01-11] MEDS: LEVETIRACETAM SOL (5 ML) 100 MG/ML UDC GT SCH (20:16)
[2019-01-11] MEDS: DAKINS QUARTER STRENGTH (0.125%) 480 ML BOTTLE TOP SCH (20:17)
[2019-01-11] MEDS: POVIDONE-IODINE OINT 28.4 GM TUBE TP SCH (20:17)
[2019-01-11] MEDS: METOPROLOL TARTRATE 25 MG TABLET GT SCH (20:17)
[2019-01-11] MEDS: ZINC OXIDE 30 GM TUBE TP SCH ×2 (20:17)
[2019-01-11] MEDS: Z GUARD REMEDY 4 OZ OINT TP SCH (20:17)
[2019-01-11] MEDS: CLOTRIMAZOLE 1% 15 GM TUBE TP SCH (20:17)
[2019-01-11] MEDS: CHLORHEXIDINE GLUCONATE 15 ML UDC MM SCH (20:17)
[2019-01-11] MEDS: MULTIVITAMINS,THERAGRAN 1 UDTAB TABLET GT SCH (20:18)
[2019-01-11] MEDS: TIZANIDINE HCL 4 MG TABLET GT SCH (20:22)
[2019-01-11] MEDS: LINEZOLID 600 MG TABLET GT SCH (20:23)
[2019-01-11] MEDS: TOPIRAMATE 25 MG TABLET GT SCH (20:23)
[2019-01-11 21:03] VITALS: BP 117/77
[2019-01-11] MEDS: SENNOSIDES 8.6 MG TABLET GT SCH (21:27)
[2019-01-11] MEDS: BACLOFEN (10 MG) 10 MG TABLET GT SCH (23:58)
[2019-01-11] MEDS: METOCLOPRAMIDE HCL 10 MG/10 ML UDC GT SCH (23:58)
[2019-01-12 00:15] VITALS: BP 120/73
[2019-01-12] MEDS: IPRATROPIUM NEB FS 0.5 MG/2.5 ML AMPUL.NEB IH SCH ×4 (00:30→19:29)
[2019-01-12] MEDS: ALBUTEROL FS 2.5 MG/3 ML VIAL.NEB IH SCH ×4 (00:30→19:29)
[2019-01-12 04:15] VITALS: BP 115/75
[2019-01-12] MEDS: BACLOFEN (10 MG) 10 MG TABLET GT SCH ×3 (05:19→17:18)
[2019-01-12] MEDS: METOCLOPRAMIDE HCL 10 MG/10 ML UDC GT SCH ×3 (05:19→17:18)
--- NOTE | 2019-01-12 08:08 | NUR ---
PT RECEIVED TRACHED ON MECHANICAL VENT W/ SETTINGS PER MD. VENT IN RED OUTLET, AMBUBAG AT BEDSIDE, VENT ALARMS CHECKED AND AUDIBLE. TRACH TUBE PATENT, SECURE. SPARE TRACH AT BEDSIDE. BS EQUAL, DIMINISHED. PT SX'ED AND LAVAGED Q2 AND PRN. MEDS GIVEN INLINE PER MD ORDER. NO RESP DISTRESS NOTED AT THIS TIME. PLAN IS CONTINUE CARE UNDER CURRENT MD ORDERS AND MONITOR FOR CHANGES. Addendum: 01/12/19 at 0810 by AZEEM SAENZ RT Amended: Links added.
[2019-01-12] MEDS: ESOMEPRAZOLE MAGNESIUM 40 MG SUSPDR.PKT GT SCH ×2 (09:40→17:00)
[2019-01-12] MEDS: LEVETIRACETAM SOL (5 ML) 100 MG/ML UDC GT SCH ×2 (09:40→20:58)
[2019-01-12] MEDS: FERROUS SULFATE UDC 300 MG/5 ML UDC GT SCH (09:40)
[2019-01-12] MEDS: METOPROLOL TARTRATE 25 MG TABLET GT SCH ×2 (09:40→20:58)
[2019-01-12] MEDS: LACTOBACILLUS RHAMNOSUS GG 1 EACH CAP.SPRINK GT SCH ×2 (09:40→17:18)
[2019-01-12] MEDS: DOCUSATE SODIUM LIQ 100 MG/10 ML UDC GT SCH ×2 (09:40→17:18)
[2019-01-12] MEDS: TOPIRAMATE 25 MG TABLET GT SCH ×2 (09:41→23:19)
[2019-01-12] MEDS: HYDROCODONE/APAP 5/325MG 1 EACH TABLET GT SCH ×3 (09:41→17:18)
[2019-01-12] MEDS: ZINC SULFATE 220 MG CAPSULE GT SCH (09:41)
[2019-01-12] MEDS: PROSOURCE / PROSTAT (PYXIS) 30 ML UDC GT SCH ×3 (09:41→17:18)
[2019-01-12] MEDS: CHLORHEXIDINE GLUCONATE 15 ML UDC MM SCH ×2 (09:41→21:06)
[2019-01-12] MEDS: TIZANIDINE HCL 4 MG TABLET GT SCH ×2 (09:41→20:59)
[2019-01-12] MEDS: LINEZOLID 600 MG TABLET GT SCH ×2 (09:41→23:19)
[2019-01-12] MEDS: POVIDONE-IODINE OINT 28.4 GM TUBE TP SCH ×2 (10:15→21:06)
[2019-01-12] MEDS: DAKINS QUARTER STRENGTH (0.125%) 480 ML BOTTLE TOP SCH ×2 (10:15→21:06)
[2019-01-12] MEDS: Z GUARD REMEDY 4 OZ OINT TP SCH ×2 (10:15→21:06)
[2019-01-12] MEDS: CLOTRIMAZOLE 1% 15 GM TUBE TP SCH ×2 (10:15→21:06)
[2019-01-12] MEDS: ZINC OXIDE 30 GM TUBE TP SCH ×6 (10:15→21:06)
[2019-01-12 10:27] VITALS: BP 142/82
--- NOTE | 2019-01-12 11:45 | NUR ---
Notified pt's mother regarding Zyvox for VRE sacral wound and room change to [facility] for contact isolation.
--- NOTE | 2019-01-12 11:47 | NUR ---
Late entry for 01/11/19 Pt's family was informed of admission to Subacute. Pt's father came to visit.
--- NOTE | 2019-01-12 13:57 | NUR ---
Per [facility] Financial Counselor, Gus Clayton's request ZENIA faxed clinicals to Insurance [[facility]] Luggage Liner: Angelique Gao ext.[phone] fax: [phone] for admission authorization to [facility] Sub-Acute.TRACKING/AUTH: [id number]. ZENIA received "completed" fax receipt.
--- NOTE | 2019-01-12 15:40 | NUR ---
Educated staff and pt's mother regarding isolation precautions and proper handwashing.
[2019-01-12] MEDS ORDERED: DAKINS QUARTER STRENGTH (0.125%) 480 ML BOTTLE TOP SCH (16:30)
[2019-01-12] MEDS ORDERED: TUBERCULIN,PURIF.PROT.DERIV. 5 TU/0.1 ML VIAL ID SCH (18:00)
[2019-01-12 20:38] VITALS: BP 132/77
[2019-01-12] MEDS: MULTIVITAMINS,THERAGRAN 1 UDTAB TABLET GT SCH (20:58)
[2019-01-12] MEDS ORDERED: CLOTRIMAZOLE 1% 15 GM TUBE TP SCH (21:00)
[2019-01-12] MEDS: SENNOSIDES 8.6 MG TABLET GT SCH (21:08)
[2019-01-12] MEDS ORDERED: TOPIRAMATE 25 MG TABLET ONE (23:03)
[2019-01-12] MEDS ORDERED: LINEZOLID 600 MG TABLET ONE (23:04)
[2019-01-13] MEDS: BACLOFEN (10 MG) 10 MG TABLET GT SCH ×5 (00:47→23:49)
[2019-01-13] MEDS: METOCLOPRAMIDE HCL 10 MG/10 ML UDC GT SCH ×5 (00:47→23:49)
[2019-01-13] MEDS: IPRATROPIUM NEB FS 0.5 MG/2.5 ML AMPUL.NEB IH SCH ×4 (02:05→20:31)
[2019-01-13] MEDS: ALBUTEROL FS 2.5 MG/3 ML VIAL.NEB IH SCH ×4 (02:05→20:31)
[2019-01-13] MEDS: JEVITY 1.2 CAL 1,000 ML BOTTLE GT PRN (05:51)
--- NOTE | 2019-01-13 06:30 | NUR ---
WOUND CARE CONSULT WOUND CARE RECEIVED CONSULT FOR PATIENT FOR NEW ADMISSION. WOUND CARE WILL DEFER CONSULT AND ALL TREATMENT PLANS TO PLASTIC SURGICAL TEAM INCLUDING [facility] WHO ARE CURRENTLY FOLLOWING THIS PATIENT. WILL SEE PRN.
[2019-01-13 07:52] VITALS: BP 130/83
[2019-01-13] MEDS: ESOMEPRAZOLE MAGNESIUM 40 MG SUSPDR.PKT GT SCH ×2 (09:00→17:00)
--- NOTE | 2019-01-13 09:19 | NUR ---
Intake Paperwork: Late Entry for 01/12/19 Patient Admitted to [facility] on Friday January 11, 2019 at 4 pm. Catalog Specialist met with the resident's Father, Larry Beasley [phone] on 01/12/19 at 4pm to complete initial admission paperwork (Patient Right's Acknowledgement, Documentation of Preferred Intensity of Care, Conditions of Admission, [facility] Agreement, and Voluntary Prior Express Consent form). SW provided patient with a copy of the Bill of Rights, patient information guide and [facility] resident and family guidelines. Larry wishes the resident be Full Code (CPR with maximum treatment). SW also completed the initial psychosocial assessment with Larry as patient is not alert to complete. Admission paperwork was placed into the resident's chart. Catalog Specialist educated Larry on advanced health care directive and conservatorship. Resident's Father, Larry noted that him and his , Vimla Beasley [phone] are the primary decision makers as default because they are the parents but there is no conservatorship or POA in place. Intake paperwork was placed in patient's chart.
[2019-01-13] MEDS: PROSOURCE / PROSTAT (PYXIS) 30 ML UDC GT SCH ×3 (09:44→17:00)
[2019-01-13] MEDS: DOCUSATE SODIUM LIQ 100 MG/10 ML UDC GT SCH ×2 (09:44→17:00)
[2019-01-13] MEDS: ZINC SULFATE 220 MG CAPSULE GT SCH (09:44)
[2019-01-13] MEDS: FERROUS SULFATE UDC 300 MG/5 ML UDC GT SCH (09:44)
[2019-01-13] MEDS: LACTOBACILLUS RHAMNOSUS GG 1 EACH CAP.SPRINK GT SCH ×2 (09:55→17:00)
[2019-01-13] MEDS: LEVETIRACETAM SOL (5 ML) 100 MG/ML UDC GT SCH ×2 (09:56→21:54)
[2019-01-13] MEDS: TOPIRAMATE 25 MG TABLET GT SCH ×2 (09:57→21:55)
[2019-01-13] MEDS: HYDROCODONE/APAP 5/325MG 1 EACH TABLET GT SCH ×3 (09:57→17:00)
[2019-01-13] MEDS: TIZANIDINE HCL 4 MG TABLET GT SCH ×2 (09:57→21:55)
[2019-01-13] MEDS: CHLORHEXIDINE GLUCONATE 15 ML UDC MM SCH ×2 (09:58→21:56)
[2019-01-13] MEDS: LINEZOLID 600 MG TABLET GT SCH ×2 (09:58→21:55)
[2019-01-13] MEDS: METOPROLOL TARTRATE 25 MG TABLET GT SCH ×2 (10:00→21:55)
[2019-01-13] MEDS: Z GUARD REMEDY 4 OZ OINT TP SCH ×3 (10:30→21:56)
[2019-01-13] MEDS: POVIDONE-IODINE OINT 28.4 GM TUBE TP SCH ×2 (10:30→21:56)
[2019-01-13] MEDS: ZINC OXIDE 30 GM TUBE TP SCH ×8 (10:30→21:56)
[2019-01-13] MEDS: CLOTRIMAZOLE 1% 15 GM TUBE TP SCH ×5 (10:30→21:56)
--- NOTE | 2019-01-13 10:30 | NUR ---
PATIENT SUPPORT TECH observed that patient's R shoulder bone is protruding but no swelling noted. Resident is not well known to staff if protruding shoulder is new. Paged Dr. Ybarra, awaiting for call back.
[2019-01-13] MEDS ORDERED: ACETAMINOPHEN 650 MG SUPP.RECT RC PRN (11:30)
[2019-01-13] MEDS ORDERED: ACETAMINOPHEN SUP SA PATIENTS 650 MG SUPP RC PRN (11:30)
[2019-01-13] MEDS ORDERED: HYDROGEN PEROXIDE 480 ML BOTTLE TP PRN (12:30)
--- NOTE | 2019-01-13 14:00 | NUR ---
Reported to Dr. Ybarra that R shoulder noted to be protruding, not sure if this has been like this before, no facial grimacing when touched. No redness or swelling. According to Dr. Ybarra he will take a look when he makes his round today.
[2019-01-13] MEDS: THERAHONEY GEL 1.5 OZ TUBE TP SCH ×2 (16:00→21:56)
--- NOTE | 2019-01-13 16:10 | NUR ---
SW met with patient at bedside to complete SS evaluation. Patient presented alert and laying in bed upon SS evaluation and appears well-groomed. Patient presents calm and cooperative throughout assessment. Patient was not responsive to name and did not track. The patient has flat affect. SW is unable to assess for thought process and thought content, insight/judgement and as patient is non-communicative. The pt. is non-ambulatory and has limitations with mobility. Per EMR, Patient has sacral wound and is currently is contact isolation due to MAXINE of the sacral wound, per charge nurse.
[2019-01-13] MEDS: HYDROCORTISONE 1% CREAM 28.35 GM TUBE TP SCH ×2 (17:00→21:56)
--- NOTE | 2019-01-13 18:02 | NUR ---
Resident's father visiting, asked father if patient is responding to him, he said that he opens his eyes. He was also asked if the R shoulder bones has been protruding, if this is something old. He said that he did not notice his shoulder, but said that he has been very contracted. MD to see patient when he makes his round.
[2019-01-13 20:37] VITALS: BP 120/78
[2019-01-13] MEDS: HYDROGEN PEROXIDE 480 ML BOTTLE TP SCH (21:00)
[2019-01-13] MEDS: MULTIVITAMINS,THERAGRAN 1 UDTAB TABLET GT SCH (21:55)
[2019-01-13] MEDS: SENNOSIDES 8.6 MG TABLET GT SCH (21:56)
--- NOTE | 2019-01-13 23:48 | NUR ---
pt rec'd trached on [facility] vent on AC mode. no resp distress or sob noted. trach is patent and secured. sx'd for mod amt of pale yellow secretions. alarms are set and audible. vent plugged into red outlet. ambu bag bedside. will continue to monitor. Addendum: 01/13/19 at 2348 by YOVANA DE LA GARZA RT Amended: Links added.
[2019-01-14] MEDS: JEVITY 1.2 CAL 1,000 ML BOTTLE GT PRN ×2 (01:10→18:50)
[2019-01-14] MEDS: ALBUTEROL FS 2.5 MG/3 ML VIAL.NEB IH SCH ×4 (02:25→20:29)
[2019-01-14] MEDS: IPRATROPIUM NEB FS 0.5 MG/2.5 ML AMPUL.NEB IH SCH ×4 (02:25→20:29)
[2019-01-14] MEDS: BACLOFEN (10 MG) 10 MG TABLET GT SCH ×4 (06:21→23:43)
[2019-01-14] MEDS: METOCLOPRAMIDE HCL 10 MG/10 ML UDC GT SCH ×4 (06:22→23:44)
--- NOTE | 2019-01-14 08:27 | NUR ---
RT NOTE pt rec'd trached on mech vent on AC mode. no resp distress or sob noted. trach is patent and secured. sx'd for mod amt of pale yellow secretions. alarms are set and audible. vent plugged into red outlet. ambu bag bedside. will continue to monitor.
[2019-01-14] MEDS: METOPROLOL TARTRATE 25 MG TABLET GT SCH ×2 (09:00→21:53)
[2019-01-14] MEDS: HYDROGEN PEROXIDE 480 ML BOTTLE TP SCH ×2 (09:00→21:55)
[2019-01-14] MEDS: FERROUS SULFATE UDC 300 MG/5 ML UDC GT SCH (09:52)
[2019-01-14] MEDS: LEVETIRACETAM SOL (5 ML) 100 MG/ML UDC GT SCH ×2 (09:52→21:52)
[2019-01-14] MEDS: LACTOBACILLUS RHAMNOSUS GG 1 EACH CAP.SPRINK GT SCH ×2 (09:52→17:36)
[2019-01-14] MEDS: DOCUSATE SODIUM LIQ 100 MG/10 ML UDC GT SCH ×2 (09:52→17:36)
[2019-01-14] MEDS: ESOMEPRAZOLE MAGNESIUM 40 MG SUSPDR.PKT GT SCH ×2 (09:53→17:36)
[2019-01-14] MEDS: HYDROCODONE/APAP 5/325MG 1 EACH TABLET GT SCH ×3 (09:53→17:36)
[2019-01-14] MEDS: PROSOURCE / PROSTAT (PYXIS) 30 ML UDC GT SCH ×3 (09:53→17:36)
[2019-01-14] MEDS: TOPIRAMATE 25 MG TABLET GT SCH ×2 (09:53→21:53)
[2019-01-14] MEDS: CHLORHEXIDINE GLUCONATE 15 ML UDC MM SCH ×2 (09:55→21:55)
[2019-01-14] MEDS: TIZANIDINE HCL 4 MG TABLET GT SCH ×2 (09:55→21:53)
[2019-01-14] MEDS: LINEZOLID 600 MG TABLET GT SCH ×2 (09:55→21:54)
[2019-01-14] MEDS: ZINC SULFATE 220 MG CAPSULE GT SCH (09:56)
[2019-01-14] MEDS: ZINC OXIDE 30 GM TUBE TP SCH ×8 (10:00→21:56)
[2019-01-14] MEDS: Z GUARD REMEDY 4 OZ OINT TP SCH ×4 (10:30→21:55)
[2019-01-14] MEDS: CLOTRIMAZOLE 1% 15 GM TUBE TP SCH ×8 (10:30→21:55)
[2019-01-14] MEDS: THERAHONEY GEL 1.5 OZ TUBE TP SCH ×3 (10:30→21:55)
[2019-01-14] MEDS: POVIDONE-IODINE OINT 28.4 GM TUBE TP SCH ×2 (10:30→21:55)
[2019-01-14] MEDS: HYDROCORTISONE 1% CREAM 28.35 GM TUBE TP SCH ×4 (10:30→21:55)
--- NOTE | 2019-01-14 19:07 | NUR ---
Right forearm PPD test (-) 2mm induration only,no redness.
--- NOTE | 2019-01-14 19:20 | NUR ---
Seen and examined by DENNIS ORTEGA.
[2019-01-14 20:24] VITALS: BP 122/78
--- NOTE | 2019-01-14 20:29 | NUR ---
PT RECEIVED TRACH ON THE VENT WITH NOTED SETTINGS. PT IS AWAKE , NON VERBAL AND RESPONDS TO STIMULI WHEN SX'D. VENT ALARMS ARE SET AND AUDIBLE WITH AMBU BAG BY BEDSIDE. TRUCK SERVICE MANAGER CUFF PRESSURE NOTED. VENT PLUGGED INTO RED OUTLET. BREATHING TX GIVEN WITH NO ADVERSE REACTIONS. SX DONE PRN. NO RESPIRATORY DISTRESS NOTED AT THIS TIME, WILL CONTINUE TO MONITOR.
[2019-01-14] MEDS: MULTIVITAMINS,THERAGRAN 1 UDTAB TABLET GT SCH (21:53)
[2019-01-14] MEDS: SENNOSIDES 8.6 MG TABLET GT SCH (21:56)
[2019-01-15] MEDS: IPRATROPIUM NEB FS 0.5 MG/2.5 ML AMPUL.NEB IH SCH ×4 (01:13→20:06)
[2019-01-15] MEDS: ALBUTEROL FS 2.5 MG/3 ML VIAL.NEB IH SCH ×4 (01:13→20:06)
[2019-01-15] MEDS: BACLOFEN (10 MG) 10 MG TABLET GT SCH ×3 (06:27→18:00)
[2019-01-15] MEDS: METOCLOPRAMIDE HCL 10 MG/10 ML UDC GT SCH ×3 (06:27→18:00)
[2019-01-15 08:50] VITALS: BP 137/82
[2019-01-15] MEDS: HYDROGEN PEROXIDE 480 ML BOTTLE TP SCH ×2 (09:12→20:29)
[2019-01-15] MEDS: LACTOBACILLUS RHAMNOSUS GG 1 EACH CAP.SPRINK GT SCH ×2 (09:26→17:00)
[2019-01-15] MEDS: DOCUSATE SODIUM LIQ 100 MG/10 ML UDC GT SCH ×2 (09:26→17:25)
[2019-01-15] MEDS: FERROUS SULFATE UDC 300 MG/5 ML UDC GT SCH (09:26)
[2019-01-15] MEDS: TOPIRAMATE 25 MG TABLET GT SCH ×2 (09:27→20:36)
[2019-01-15] MEDS: ZINC SULFATE 220 MG CAPSULE GT SCH (09:27)
[2019-01-15] MEDS: TIZANIDINE HCL 4 MG TABLET GT SCH ×2 (09:27→20:39)
[2019-01-15] MEDS: HYDROCODONE/APAP 5/325MG 1 EACH TABLET GT SCH ×3 (09:27→17:26)
[2019-01-15] MEDS: PROSOURCE / PROSTAT (PYXIS) 30 ML UDC GT SCH ×3 (09:27→17:25)
[2019-01-15] MEDS: CHLORHEXIDINE GLUCONATE 15 ML UDC MM SCH ×2 (09:27→20:39)
[2019-01-15] MEDS: LEVETIRACETAM SOL (5 ML) 100 MG/ML UDC GT SCH ×2 (09:44→20:34)
[2019-01-15] MEDS: LINEZOLID 600 MG TABLET GT SCH ×2 (09:44→20:36)
[2019-01-15] MEDS: METOPROLOL TARTRATE 25 MG TABLET GT SCH ×2 (09:55→20:38)
[2019-01-15] MEDS: ESOMEPRAZOLE MAGNESIUM 40 MG SUSPDR.PKT GT SCH ×2 (09:56→17:25)
[2019-01-15] MEDS: HYDROCORTISONE 1% CREAM 28.35 GM TUBE TP SCH ×4 (10:15→20:40)
[2019-01-15] MEDS: ZINC OXIDE 30 GM TUBE TP SCH ×8 (10:15→20:44)
[2019-01-15] MEDS: THERAHONEY GEL 1.5 OZ TUBE TP SCH ×3 (10:15→20:43)
[2019-01-15] MEDS: CLOTRIMAZOLE 1% 15 GM TUBE TP SCH ×8 (10:15→20:41)
[2019-01-15] MEDS: POVIDONE-IODINE OINT 28.4 GM TUBE TP SCH ×2 (10:15→20:40)
[2019-01-15] MEDS: Z GUARD REMEDY 4 OZ OINT TP SCH ×4 (10:15→20:43)
[2019-01-15] MEDS: JEVITY 1.2 CAL 1,000 ML BOTTLE GT PRN (13:00)
--- NOTE | 2019-01-15 13:56 | NUR ---
SW contacted and spoke to patients Father, Larry Beasley [phone] to invite family to attend the IDT Plan of Care Conference meeting on 01/22/19 from 12:30pm-12:30pm in the activities room. Per Larry, the patients mother, Jesusita Beasley [phone] will be in attendance. Noted.
--- NOTE | 2019-01-15 15:17 | NUR ---
Seen and examined by Dr. Ybarra, assessed protruding bone in the R shoulder, said it is due to patient's contracture. Asked if patient's routine Calhoun can be reassessed, according to patient's mother, the reason he is on routine Calhoun because his heart rate goes up. According to Dr. Ybarra to decrease Calhoun to BID and may give PRN if needed, condom cath also discontinued as it doesn't stay, will use disposable pad and change him PRN to keep him clean and dry. Resident's mother informed of above orders and very appreciative of the care being provided to her son.
--- NOTE | 2019-01-15 17:29 | NUR ---
Pt receive stable on ordered MV settings, treatment given and no adverse reaction observe, vent plug at red outlet, spare trach and ambu bag at bedside. Trach patent and secured, pt remained stable the whole shift, will continue to monitor
--- NOTE | 2019-01-15 19:00 | NUR ---
Clarified Zyvox duration with REBECA Fletcher, It will be given for a total of 6 weeks, new order also given to check CBC q 5 days while on Zyvox. Order carried out. Resident's mother informed.
[2019-01-15 20:09] VITALS: BP 139/74
[2019-01-15] MEDS: MULTIVITAMINS,THERAGRAN 1 UDTAB TABLET GT SCH (20:38)
--- NOTE | 2019-01-15 20:44 | NUR ---
PT RCVD TRACH'D ON MECHANICAL VENT WITH CHARTED SETTINGS. PT ANIKA TX WELL. SX DONE. PT TRACH IS PATENT AND SECURE. VENT PLUGGED INTO RED OUTLET. ALARMS ARE ON AND AUDIBLE. AMBU BAG AT BEDSIDE. Addendum: 01/15/19 at 2044 by RUBA OSPINA RT Amended: Links added.
[2019-01-15] MEDS: SENNOSIDES 8.6 MG TABLET GT SCH (21:42)
[2019-01-16] MEDS: BACLOFEN (10 MG) 10 MG TABLET GT SCH ×5 (00:09→23:18)
[2019-01-16] MEDS: METOCLOPRAMIDE HCL 10 MG/10 ML UDC GT SCH ×5 (00:09→23:18)
[2019-01-16] MEDS: ALBUTEROL FS 2.5 MG/3 ML VIAL.NEB IH SCH ×4 (01:06→19:34)
[2019-01-16] MEDS: IPRATROPIUM NEB FS 0.5 MG/2.5 ML AMPUL.NEB IH SCH ×4 (01:06→19:34)
[2019-01-16] MEDS: HYDROGEN PEROXIDE 480 ML BOTTLE TP SCH ×2 (07:56→21:00)
[2019-01-16 08:00] VITALS: BP 119/62
[2019-01-16] MEDS: LACTOBACILLUS RHAMNOSUS GG 1 EACH CAP.SPRINK GT SCH ×2 (08:41→16:34)
[2019-01-16] MEDS: ESOMEPRAZOLE MAGNESIUM 40 MG SUSPDR.PKT GT SCH ×2 (08:41→16:34)
[2019-01-16] MEDS: LEVETIRACETAM SOL (5 ML) 100 MG/ML UDC GT SCH ×2 (08:41→21:11)
[2019-01-16] MEDS: METOPROLOL TARTRATE 25 MG TABLET GT SCH ×2 (08:41→21:11)
[2019-01-16] MEDS: FERROUS SULFATE UDC 300 MG/5 ML UDC GT SCH (08:41)
[2019-01-16] MEDS: DOCUSATE SODIUM LIQ 100 MG/10 ML UDC GT SCH ×2 (08:41→16:34)
[2019-01-16] MEDS: TIZANIDINE HCL 4 MG TABLET GT SCH ×2 (08:42→21:11)
[2019-01-16] MEDS: PROSOURCE / PROSTAT (PYXIS) 30 ML UDC GT SCH ×3 (08:42→16:34)
[2019-01-16] MEDS: HYDROCODONE/APAP 5/325MG 1 EACH TABLET GT SCH ×2 (08:42→16:36)
[2019-01-16] MEDS: CHLORHEXIDINE GLUCONATE 15 ML UDC MM SCH ×2 (08:42→21:11)
[2019-01-16] MEDS: TOPIRAMATE 25 MG TABLET GT SCH ×2 (08:42→21:11)
[2019-01-16] MEDS: ZINC SULFATE 220 MG CAPSULE GT SCH (08:42)
[2019-01-16] MEDS: LINEZOLID 600 MG TABLET GT SCH ×2 (08:42→21:11)
[2019-01-16] MEDS: Z GUARD REMEDY 4 OZ OINT TP SCH ×4 (10:00→21:12)
[2019-01-16] MEDS: CLOTRIMAZOLE 1% 15 GM TUBE TP SCH ×8 (10:00→21:12)
[2019-01-16] MEDS: HYDROCORTISONE 1% CREAM 28.35 GM TUBE TP SCH ×4 (10:00→21:11)
[2019-01-16] MEDS: ZINC OXIDE 30 GM TUBE TP SCH ×8 (10:00→21:13)
[2019-01-16] MEDS: POVIDONE-IODINE OINT 28.4 GM TUBE TP SCH ×2 (10:00→21:11)
[2019-01-16] MEDS: THERAHONEY GEL 1.5 OZ TUBE TP SCH ×3 (10:00→21:12)
[2019-01-16] MEDS: JEVITY 1.2 CAL 1,000 ML BOTTLE GT PRN (16:36)
--- NOTE | 2019-01-16 17:53 | NUR ---
RT NOTE PATIENT RECEIVED ON MECHANICAL VENT. WITH NOTED SETTINGS. VENTILATOR IS PLUGGED TO RED OUTLET AND ALARMS ARE SET AND AUDIBLE. TRACH IS PATENT AND SECURED. SPARE TRACH AND BMV AT BEDSIDE. TRACH CARE WAS PERFORMED. PATIENT TOLERATED Q6 TX'S INLINE WELL WITH NO ADVERSE REACTIONS. SUCTION MODERATE GREEN THIN SECRETIONS THROUGH OUT THE DAY. BREATH SOUNDS WERE RHONCHI BEFORE SUCTION AND COARSE AFTER SUCTION. PATIENT MAINTAINED HEART RATE, RESPIRATORY RATE, AND O2 SATURATIONS WITHIN NORMAL RANGES. NO SOB NOTED. REPORT WILL BE GIVEN TO CYLINDER HANDLER. Addendum: 01/16/19 at 1755 by BRENDA HERZOG RT Amended: Links added.
[2019-01-16 20:06] VITALS: BP 124/79
[2019-01-16] MEDS: MULTIVITAMINS,THERAGRAN 1 UDTAB TABLET GT SCH (21:11)
[2019-01-16] MEDS: SENNOSIDES 8.6 MG TABLET GT SCH (21:13)
[2019-01-17] MEDS: ALBUTEROL FS 2.5 MG/3 ML VIAL.NEB IH SCH ×4 (01:21→19:34)
[2019-01-17] MEDS: IPRATROPIUM NEB FS 0.5 MG/2.5 ML AMPUL.NEB IH SCH ×4 (01:21→19:34)
[2019-01-17] MEDS: METOCLOPRAMIDE HCL 10 MG/10 ML UDC GT SCH ×3 (05:39→17:36)
[2019-01-17] MEDS: BACLOFEN (10 MG) 10 MG TABLET GT SCH ×3 (05:39→17:36)
--- NOTE | 2019-01-17 06:15 | NUR ---
Pt received on ordered MV settings , Vent plug on red outlet, spare trach and ambu bag is at bedside, alarms are on and audible, all HHN tx. given and no adverse reaction observe. trach patent and secured, sxn prn, pt was stable the whole shift, no sob or respiratory distress noted during the shift
[2019-01-17 07:31] VITALS: BP 124/82
--- NOTE | 2019-01-17 08:14 | NUR ---
RT Pt received trached on the vent with noted settings. Pt is awake but does not follow commands. Vent is plugged into red outlet. No respiratory distress noted. Addendum: 01/17/19 at 1635 by MARA SHORT RT Amended: Links added.
[2019-01-17] MEDS: HYDROGEN PEROXIDE 480 ML BOTTLE TP SCH ×2 (09:00→21:00)
[2019-01-17] MEDS: TIZANIDINE HCL 4 MG TABLET GT SCH ×2 (09:39→20:25)
[2019-01-17] MEDS: PROSOURCE / PROSTAT (PYXIS) 30 ML UDC GT SCH ×3 (09:39→16:28)
[2019-01-17] MEDS: LEVETIRACETAM SOL (5 ML) 100 MG/ML UDC GT SCH ×2 (09:39→20:24)
[2019-01-17] MEDS: CHLORHEXIDINE GLUCONATE 15 ML UDC MM SCH ×2 (09:39→20:28)
[2019-01-17] MEDS: DOCUSATE SODIUM LIQ 100 MG/10 ML UDC GT SCH ×2 (09:39→16:28)
[2019-01-17] MEDS: LACTOBACILLUS RHAMNOSUS GG 1 EACH CAP.SPRINK GT SCH ×2 (09:39→16:28)
[2019-01-17] MEDS: ESOMEPRAZOLE MAGNESIUM 40 MG SUSPDR.PKT GT SCH ×2 (09:39→16:28)
[2019-01-17] MEDS: HYDROCODONE/APAP 5/325MG 1 EACH TABLET GT SCH ×2 (09:39→16:30)
[2019-01-17] MEDS: FERROUS SULFATE UDC 300 MG/5 ML UDC GT SCH (09:39)
[2019-01-17] MEDS: TOPIRAMATE 25 MG TABLET GT SCH ×2 (09:39→20:27)
[2019-01-17] MEDS: ZINC SULFATE 220 MG CAPSULE GT SCH (09:39)
[2019-01-17] MEDS: LINEZOLID 600 MG TABLET GT SCH ×2 (09:39→20:24)
[2019-01-17] MEDS: METOPROLOL TARTRATE 25 MG TABLET GT SCH ×2 (09:40→20:26)
[2019-01-17] MEDS: Z GUARD REMEDY 4 OZ OINT TP SCH ×4 (10:15→20:28)
[2019-01-17] MEDS: POVIDONE-IODINE OINT 28.4 GM TUBE TP SCH ×2 (10:15→20:28)
[2019-01-17] MEDS: THERAHONEY GEL 1.5 OZ TUBE TP SCH ×3 (10:15→20:28)
[2019-01-17] MEDS: HYDROCORTISONE 1% CREAM 28.35 GM TUBE TP SCH ×4 (10:15→20:28)
[2019-01-17] MEDS: CLOTRIMAZOLE 1% 15 GM TUBE TP SCH ×8 (10:15→20:28)
[2019-01-17] MEDS: ZINC OXIDE 30 GM TUBE TP SCH ×8 (10:15→20:29)
[2019-01-17 19:53] VITALS: BP 124/78
[2019-01-17] MEDS: MULTIVITAMINS,THERAGRAN 1 UDTAB TABLET GT SCH (20:27)
[2019-01-17] MEDS: SENNOSIDES 8.6 MG TABLET GT SCH (22:23)
[2019-01-18] MEDS: METOCLOPRAMIDE HCL 10 MG/10 ML UDC GT SCH ×4 (00:13→17:31)
[2019-01-18] MEDS: BACLOFEN (10 MG) 10 MG TABLET GT SCH ×4 (00:13→17:31)
[2019-01-18] MEDS: IPRATROPIUM NEB FS 0.5 MG/2.5 ML AMPUL.NEB IH SCH ×4 (01:30→20:04)
[2019-01-18] MEDS: ALBUTEROL FS 2.5 MG/3 ML VIAL.NEB IH SCH ×4 (01:30→20:04)
[2019-01-18] MEDS: JEVITY 1.2 CAL 1,000 ML BOTTLE GT PRN (05:18)
[2019-01-18] MEDS: HYDROGEN PEROXIDE 480 ML BOTTLE TP SCH ×2 (07:26→20:04)
[2019-01-18 07:34] LABS: BASOPHILS # (AUTO) 0.1 /CMM (0.0-0.2); BASOPHILS % (AUTO) 0.8 % (0.0-2.0); EOSINOPHILS % (AUTO) 5.1 % (0.0-6.0); HEMATOCRIT 35 % (39-51); HEMOGLOBIN 11.6 g/dL (13.5-17.5); LYMPHOCYTES # (AUTO) 1.2 /CMM (0.8-4.8); LYMPHOCYTES % (AUTO) 17.1 % (20.0-44.0); MEAN CORPUSCULAR HGB CONC 33 g/dl (31.0-36.0); MEAN CORPUSCULAR VOLUME 91 fL (80-96); MONOCYTES # (AUTO) 0.6 /CMM (0.1-1.30); MONOCYTES % (AUTO) 9.3 % (2.0-12.0); NEUTROPHILS # (AUTO) 4.7 /CMM (1.8-8.9); NEUTROPHILS % (AUTO) 67.7 % (43.0-81.0); PLATELET COUNT (AUTO) 264 /CMM (150-450); RED BLOOD CELL COUNT(AUTO) 3.86 MIL/uL (4.5-6.0); WHITE BLOOD COUNT (AUTO) 6.9 K/uL (4.3-11.0)
[2019-01-18 07:36] LABS: CALCIUM, SERUM 8.9 mg/dL (8.5-10.1); CREATININE 0.7 mg/dL (0.6-1.3); POTASSIUM 3.7 mmol/L (3.5-5.1)
[2019-01-18 07:46] VITALS: BP 123/64
[2019-01-18] MEDS: LACTOBACILLUS RHAMNOSUS GG 1 EACH CAP.SPRINK GT SCH ×2 (09:14→17:30)
[2019-01-18] MEDS: DOCUSATE SODIUM LIQ 100 MG/10 ML UDC GT SCH ×2 (09:14→17:30)
[2019-01-18] MEDS: FERROUS SULFATE UDC 300 MG/5 ML UDC GT SCH (09:15)
[2019-01-18] MEDS: LEVETIRACETAM SOL (5 ML) 100 MG/ML UDC GT SCH ×2 (09:15→21:11)
[2019-01-18] MEDS: PROSOURCE / PROSTAT (PYXIS) 30 ML UDC GT SCH ×3 (09:15→17:30)
[2019-01-18] MEDS: ESOMEPRAZOLE MAGNESIUM 40 MG SUSPDR.PKT GT SCH ×2 (09:15→17:30)
[2019-01-18] MEDS: TIZANIDINE HCL 4 MG TABLET GT SCH ×2 (09:16→21:12)
[2019-01-18] MEDS: LINEZOLID 600 MG TABLET GT SCH ×2 (09:17→21:12)
[2019-01-18] MEDS: CHLORHEXIDINE GLUCONATE 15 ML UDC MM SCH ×2 (09:17→21:13)
[2019-01-18] MEDS: ZINC SULFATE 220 MG CAPSULE GT SCH (09:17)
[2019-01-18] MEDS: METOPROLOL TARTRATE 25 MG TABLET GT SCH ×2 (09:42→21:13)
[2019-01-18] MEDS: HYDROCODONE/APAP 5/325MG 1 EACH TABLET GT SCH ×2 (09:43→17:30)
[2019-01-18] MEDS: TOPIRAMATE 25 MG TABLET GT SCH ×2 (09:46→21:11)
[2019-01-18] MEDS: THERAHONEY GEL 1.5 OZ TUBE TP SCH ×3 (10:43→21:14)
[2019-01-18] MEDS: CLOTRIMAZOLE 1% 15 GM TUBE TP SCH ×8 (10:43→21:13)
[2019-01-18] MEDS: ZINC OXIDE 30 GM TUBE TP SCH ×8 (10:43→21:14)
[2019-01-18] MEDS: POVIDONE-IODINE OINT 28.4 GM TUBE TP SCH (10:43)
[2019-01-18] MEDS: Z GUARD REMEDY 4 OZ OINT TP SCH ×4 (10:43→21:14)
[2019-01-18] MEDS: HYDROCORTISONE 1% CREAM 28.35 GM TUBE TP SCH ×4 (10:43→21:13)
--- NOTE | 2019-01-18 20:08 | NUR ---
RT NOTE: RECEIVED TRACH PT ON [facility] VENT ON NOTED SETTINGS PER MD ORDERS. TRACH IS PATENT AND SECURED. TRACH CARE DONE. RESEARCH PROGRAM MANAGER DONE. Q6 BREATHING TX GIVEN WITH NO ADVERSE REACTION NOTED. SX DONE PRN. VENT PLUGGED INTO RED OUTLET. ALARMS ON AND AUDIBLE. KARTIKU BAG @ BEDSIDE. NO RESP DISTRESS AT THIS TIME. WILL CONT TO MONITOR PT. Addendum: 01/19/19 at 0305 by KELLY HOPE RT Amended: Links added.
[2019-01-18 20:40] VITALS: BP 126/89
[2019-01-18] MEDS: MULTIVITAMINS,THERAGRAN 1 UDTAB TABLET GT SCH (21:13)
[2019-01-18] MEDS: [UNRECOGNIZED DRUG - OTHER] TP SCH (21:13)
[2019-01-18] MEDS: SENNOSIDES 8.6 MG TABLET GT SCH (21:14)
[2019-01-19] MEDS: JEVITY 1.2 CAL 1,000 ML BOTTLE GT PRN (00:04)
[2019-01-19] MEDS: IPRATROPIUM NEB FS 0.5 MG/2.5 ML AMPUL.NEB IH SCH ×4 (02:03→19:58)
[2019-01-19] MEDS: ALBUTEROL FS 2.5 MG/3 ML VIAL.NEB IH SCH ×4 (02:03→19:58)
[2019-01-19] MEDS: BACLOFEN (10 MG) 10 MG TABLET GT SCH ×4 (05:35→17:22)
[2019-01-19] MEDS: METOCLOPRAMIDE HCL 10 MG/10 ML UDC GT SCH ×4 (05:35→17:22)
[2019-01-19 07:53] VITALS: BP 159/87
[2019-01-19] MEDS: CLOTRIMAZOLE 1% 15 GM TUBE TP SCH ×8 (09:00→20:41)
[2019-01-19] MEDS: Z GUARD REMEDY 4 OZ OINT TP SCH ×4 (09:00→20:41)
[2019-01-19] MEDS: HYDROCORTISONE 1% CREAM 28.35 GM TUBE TP SCH ×4 (09:00→20:40)
[2019-01-19] MEDS: THERAHONEY GEL 1.5 OZ TUBE TP SCH ×3 (09:00→20:41)
[2019-01-19] MEDS: [UNRECOGNIZED DRUG - OTHER] TP SCH ×2 (09:00→20:41)
[2019-01-19] MEDS: HYDROGEN PEROXIDE 480 ML BOTTLE TP SCH ×2 (09:00→21:00)
[2019-01-19] MEDS: ZINC OXIDE 30 GM TUBE TP SCH ×8 (09:00→20:42)
[2019-01-19] MEDS: FERROUS SULFATE UDC 300 MG/5 ML UDC GT SCH (09:49)
[2019-01-19] MEDS: LEVETIRACETAM SOL (5 ML) 100 MG/ML UDC GT SCH ×2 (09:49→20:37)
[2019-01-19] MEDS: LACTOBACILLUS RHAMNOSUS GG 1 EACH CAP.SPRINK GT SCH ×2 (09:49→16:37)
[2019-01-19] MEDS: DOCUSATE SODIUM LIQ 100 MG/10 ML UDC GT SCH ×2 (09:49→16:37)
[2019-01-19] MEDS: TOPIRAMATE 25 MG TABLET GT SCH ×2 (09:50→20:38)
[2019-01-19] MEDS: LINEZOLID 600 MG TABLET GT SCH ×2 (09:50→20:40)
[2019-01-19] MEDS: METOPROLOL TARTRATE 25 MG TABLET GT SCH ×2 (09:50→20:39)
[2019-01-19] MEDS: ZINC SULFATE 220 MG CAPSULE GT SCH (09:50)
[2019-01-19] MEDS: HYDROCODONE/APAP 5/325MG 1 EACH TABLET GT SCH ×2 (09:50→16:38)
[2019-01-19] MEDS: CHLORHEXIDINE GLUCONATE 15 ML UDC MM SCH ×2 (09:50→20:40)
[2019-01-19] MEDS: TIZANIDINE HCL 4 MG TABLET GT SCH ×2 (09:50→20:40)
[2019-01-19] MEDS: PROSOURCE / PROSTAT (PYXIS) 30 ML UDC GT SCH ×3 (09:50→16:38)
[2019-01-19] MEDS: ESOMEPRAZOLE MAGNESIUM 40 MG SUSPDR.PKT GT SCH ×2 (09:50→16:37)
--- NOTE | 2019-01-19 11:45 | NUR ---
ZENIA called dental office [phone] and spoke to Mystery to arrange dental exam and cleaning for pt. with Dr. Bryant. Per mystery Dr. Dowell can see the pt. on 02/10/19 after 12:30pm. ZENIA faxed pt.s facesheet to dental office at FAX: [phone] and received completed fax receipt. ZENIA informed charge Nurse and pt.s father, Larry [phone] who stated thank you, I appreciate it.
[2019-01-19 20:26] VITALS: BP 119/80
--- NOTE | 2019-01-19 20:30 | NUR ---
RT NOTE PT RECEIVED TRACHED ON MECHANICAL VENTILATION. AMBU BAG/BACK UP TRACH @ BEDSIDE. TX GIVEN, NO ADVERSE REACTIONS NOTED. SX DONE, TRACH SECURED AND PATENT. VENT PLUGGED TO RED OUTLET. ALARMS ON AND AUDIBLE. NO SOB NOTED AT THIS TIME. WILL CONTINUE TO MONITOR T/O SHIFT. Addendum: 01/19/19 at 2030 by JAIRO KOO RT Amended: Links added.
[2019-01-19] MEDS: MULTIVITAMINS,THERAGRAN 1 UDTAB TABLET GT SCH (20:39)
[2019-01-19] MEDS: NEOMY SULF/BACITRAC ZN/POLY 15 GM TUBE TP SCH (20:41)
[2019-01-19] MEDS: SENNOSIDES 8.6 MG TABLET GT SCH (22:20)
[2019-01-20] MEDS: BACLOFEN (10 MG) 10 MG TABLET GT SCH ×4 (00:31→18:02)
[2019-01-20] MEDS: METOCLOPRAMIDE HCL 10 MG/10 ML UDC GT SCH ×4 (00:31→18:02)
[2019-01-20] MEDS: IPRATROPIUM NEB FS 0.5 MG/2.5 ML AMPUL.NEB IH SCH ×4 (01:28→20:34)
[2019-01-20] MEDS: ALBUTEROL FS 2.5 MG/3 ML VIAL.NEB IH SCH ×4 (01:28→20:34)
[2019-01-20] MEDS: JEVITY 1.2 CAL 1,000 ML BOTTLE GT PRN ×2 (02:07→22:50)
[2019-01-20 07:44] VITALS: BP 122/89
[2019-01-20 08:00] VITALS: BP 122/89
--- NOTE | 2019-01-20 08:20 | NUR ---
Left a message to DENNIS Avery, regarding elevated temperature, oral T 101 and Ax 100.8, HR 103, R 12, 02 sat 99, 122/89. Cooling measure applied, continue to monitor. Awaiting for return call.
[2019-01-20] MEDS: LACTOBACILLUS RHAMNOSUS GG 1 EACH CAP.SPRINK GT SCH ×2 (08:39→17:00)
[2019-01-20] MEDS: DOCUSATE SODIUM LIQ 100 MG/10 ML UDC GT SCH ×2 (08:39→17:00)
[2019-01-20] MEDS: LEVETIRACETAM SOL (5 ML) 100 MG/ML UDC GT SCH ×2 (08:40→21:18)
[2019-01-20] MEDS: FERROUS SULFATE UDC 300 MG/5 ML UDC GT SCH (08:40)
[2019-01-20] MEDS: ESOMEPRAZOLE MAGNESIUM 40 MG SUSPDR.PKT GT SCH ×2 (08:41→17:00)
[2019-01-20] MEDS: METOPROLOL TARTRATE 25 MG TABLET GT SCH ×2 (08:41→21:00)
[2019-01-20] MEDS: TOPIRAMATE 25 MG TABLET GT SCH ×2 (08:43→21:00)
[2019-01-20] MEDS: HYDROCODONE/APAP 5/325MG 1 EACH TABLET GT SCH ×2 (08:43→17:00)
[2019-01-20] MEDS: TIZANIDINE HCL 4 MG TABLET GT SCH ×2 (08:43→21:00)
[2019-01-20] MEDS: PROSOURCE / PROSTAT (PYXIS) 30 ML UDC GT SCH ×3 (08:43→17:00)
[2019-01-20] MEDS: LINEZOLID 600 MG TABLET GT SCH ×2 (08:44→21:00)
[2019-01-20] MEDS: ZINC SULFATE 220 MG CAPSULE GT SCH (08:44)
[2019-01-20] MEDS: CHLORHEXIDINE GLUCONATE 15 ML UDC MM SCH ×2 (08:44→21:00)
[2019-01-20] MEDS: ACETAMINOPHEN 650 MG/20 ML UDC- SA PATIENTS-FEVER ONLY GT PRN (08:45)
--- NOTE | 2019-01-20 08:55 | NUR ---
Received an order from DENNIS Henley for labs, CBC, BMP, Chest Xray, Urine culture, and blood culture and Merrem IV Q 8 hours to be started after BC specimen is obtained.
[2019-01-20 09:00] VITALS: BP 123/84
[2019-01-20] MEDS: HYDROGEN PEROXIDE 480 ML BOTTLE TP SCH ×2 (09:00→21:06)
[2019-01-20] MEDS: HYDROCORTISONE 1% CREAM 28.35 GM TUBE TP SCH ×4 (09:00→21:00)
[2019-01-20] MEDS: CLOTRIMAZOLE 1% 15 GM TUBE TP SCH ×8 (09:00→21:00)
[2019-01-20] MEDS: NEOMY SULF/BACITRAC ZN/POLY 15 GM TUBE TP SCH ×2 (09:43→21:01)
[2019-01-20] MEDS: THERAHONEY GEL 1.5 OZ TUBE TP SCH ×3 (09:43→21:01)
[2019-01-20] MEDS: ZINC OXIDE 30 GM TUBE TP SCH ×8 (09:43→21:01)
[2019-01-20] MEDS: Z GUARD REMEDY 4 OZ OINT TP SCH ×4 (09:43→21:01)
[2019-01-20] MEDS: [UNRECOGNIZED DRUG - OTHER] TP SCH ×2 (09:43→21:01)
[2019-01-20 10:50] LABS: BASOPHILS % (AUTO) 0.6 % (0.0-2.0); EOSINOPHILS % (AUTO) 10.7 % (0.0-6.0); HEMATOCRIT 31 % (39-51); HEMOGLOBIN 10.4 g/dL (13.5-17.5); LYMPHOCYTES # (AUTO) 0.8 /CMM (0.8-4.8); LYMPHOCYTES % (AUTO) 10.3 % (20.0-44.0); MEAN CORPUSCULAR HGB CONC 34 g/dl (31.0-36.0); MEAN CORPUSCULAR VOLUME 92 fL (80-96); MONOCYTES # (AUTO) 0.5 /CMM (0.1-1.30); NEUTROPHILS # (AUTO) 5.2 /CMM (1.8-8.9); NEUTROPHILS % (AUTO) 71.4 % (43.0-81.0); PLATELET COUNT (AUTO) 240 /CMM (150-450); RED BLOOD CELL COUNT(AUTO) 3.37 MIL/uL (4.5-6.0); WHITE BLOOD COUNT (AUTO) 7.3 K/uL (4.3-11.0)
[2019-01-20 11:03] LABS: CALCIUM, SERUM 8.6 mg/dL (8.5-10.1); CREATININE 0.7 mg/dL (0.6-1.3); POTASSIUM 3.3 mmol/L (3.5-5.1)
[2019-01-20] MEDS ORDERED: MEROPENEM 500 MG in IV NS 0.9% 50 ML IV ONE (11:30)
--- NOTE | 2019-01-20 18:46 | NUR ---
Relayed CBC, BMP and Chest Xray result to DENNIS Henley, SHANO given. Paged Dr. Ybarra to relay BMP result with K+ level 3.3, awaiting for call back. Latest temperature 99.0.
[2019-01-20 18:56] VITALS: BP 121/84
[2019-01-20 20:00] VITALS: BP 130/76
[2019-01-20] MEDS ORDERED: POTASSIUM CHLORIDE 20 MEQ TAB.PRT.SR PO ONE (20:37)
[2019-01-20] MEDS: MEROPENEM 500 MG in IV NS 0.9% 100 ML IV SCH (20:40)
[2019-01-20] MEDS: MULTIVITAMINS,THERAGRAN 1 UDTAB TABLET GT SCH (21:00)
[2019-01-20] MEDS ORDERED: POTASSIUM CHLORIDE 20 MEQ POWDER PACKET GT ONE (21:00)
[2019-01-20] MEDS: SENNOSIDES 8.6 MG TABLET GT SCH (21:01)
--- NOTE | 2019-01-20 23:11 | NUR ---
pt rec'd trached on [facility] vent on AC mode. no resp distress or sob noted. trach is patent and secured. sx'd for small amt of pale yellow secretions. alarms are set and audible. vent plugged into red outlet. ambu bag bedside. will continue to monitor. Addendum: 01/20/19 at 2312 by YOVANA DE LA GARZA RT Amended: Links added.
[2019-01-21] MEDS: BACLOFEN (10 MG) 10 MG TABLET GT SCH ×4 (00:20→17:26)
[2019-01-21] MEDS: METOCLOPRAMIDE HCL 10 MG/10 ML UDC GT SCH ×4 (00:20→17:26)
[2019-01-21] MEDS: ALBUTEROL FS 2.5 MG/3 ML VIAL.NEB IH SCH ×4 (02:00→20:20)
[2019-01-21] MEDS: IPRATROPIUM NEB FS 0.5 MG/2.5 ML AMPUL.NEB IH SCH ×4 (02:00→20:20)
[2019-01-21] MEDS: MEROPENEM 500 MG in IV NS 0.9% 100 ML IV SCH ×3 (05:41→21:54)
[2019-01-21 07:27] VITALS: BP 121/76
[2019-01-21] MEDS: LEVETIRACETAM SOL (5 ML) 100 MG/ML UDC GT SCH ×2 (08:34→21:00)
[2019-01-21] MEDS: DOCUSATE SODIUM LIQ 100 MG/10 ML UDC GT SCH ×2 (08:34→17:26)
[2019-01-21] MEDS: LACTOBACILLUS RHAMNOSUS GG 1 EACH CAP.SPRINK GT SCH ×2 (08:34→17:26)
[2019-01-21] MEDS: CHLORHEXIDINE GLUCONATE 15 ML UDC MM SCH ×2 (08:35→21:00)
[2019-01-21] MEDS: PROSOURCE / PROSTAT (PYXIS) 30 ML UDC GT SCH ×3 (08:35→17:26)
[2019-01-21] MEDS: TOPIRAMATE 25 MG TABLET GT SCH ×2 (08:35→21:00)
[2019-01-21] MEDS: ZINC SULFATE 220 MG CAPSULE GT SCH (08:35)
[2019-01-21] MEDS: METOPROLOL TARTRATE 25 MG TABLET GT SCH ×2 (08:35→21:00)
[2019-01-21] MEDS: LINEZOLID 600 MG TABLET GT SCH ×2 (08:35→21:00)
[2019-01-21] MEDS: TIZANIDINE HCL 4 MG TABLET GT SCH ×2 (08:35→21:00)
[2019-01-21] MEDS: ESOMEPRAZOLE MAGNESIUM 40 MG SUSPDR.PKT GT SCH ×2 (08:35→17:26)
[2019-01-21] MEDS: FERROUS SULFATE UDC 300 MG/5 ML UDC GT SCH (08:40)
[2019-01-21] MEDS: HYDROCODONE/APAP 5/325MG 1 EACH TABLET GT SCH ×3 (08:41→22:00)
[2019-01-21] MEDS: HYDROGEN PEROXIDE 480 ML BOTTLE TP SCH ×2 (09:00→21:00)
[2019-01-21] MEDS: HYDROCORTISONE 1% CREAM 28.35 GM TUBE TP SCH ×4 (09:56→21:00)
[2019-01-21] MEDS: CLOTRIMAZOLE 1% 15 GM TUBE TP SCH ×8 (09:56→21:00)
[2019-01-21] MEDS: [UNRECOGNIZED DRUG - OTHER] TP SCH ×2 (09:56→21:00)
[2019-01-21] MEDS: Z GUARD REMEDY 4 OZ OINT TP SCH ×4 (09:56→21:00)
[2019-01-21] MEDS: THERAHONEY GEL 1.5 OZ TUBE TP SCH ×3 (09:57→21:00)
[2019-01-21] MEDS: ZINC OXIDE 30 GM TUBE TP SCH ×8 (09:57→21:00)
--- NOTE | 2019-01-21 10:58 | NUR ---
Late entry for 01/19/19 Back of neck open skin noted. Received order to apply triple antibiotic ointment and Mepilex dressing. Also received order for wound consult. Notified pt's mother Vilma.
--- NOTE | 2019-01-21 12:54 | NUR ---
RT NOTE pt rec'd trached on mech vent on AC mode. no resp distress or sob noted. trach is patent and secured. sx'd for small amt of pale yellow secretions. alarms are set and audible. vent plugged into red outlet. ambu bag bedside. will continue to monitor.
[2019-01-21] MEDS: JEVITY 1.2 CAL 1,000 ML BOTTLE GT PRN (17:27)
[2019-01-21 20:41] VITALS: BP 128/76
[2019-01-21] MEDS: MULTIVITAMINS,THERAGRAN 1 UDTAB TABLET GT SCH (21:00)
[2019-01-21] MEDS: SENNOSIDES 8.6 MG TABLET GT SCH (22:14)
[2019-01-22] MEDS: ALBUTEROL FS 2.5 MG/3 ML VIAL.NEB IH SCH ×4 (01:30→19:40)
[2019-01-22] MEDS: IPRATROPIUM NEB FS 0.5 MG/2.5 ML AMPUL.NEB IH SCH ×4 (01:30→19:40)
--- NOTE | 2019-01-22 04:47 | NUR ---
Pt receive stable on ordered vent settings, vent plug on red outlet, ambu bag and spare trach at bedside, trach patent and secured, sxn PRN, no sob or respiratory distress noted, will continue to monitor
[2019-01-22] MEDS: MEROPENEM 500 MG in IV NS 0.9% 100 ML IV SCH ×2 (05:00→13:52)
[2019-01-22] MEDS: METOCLOPRAMIDE HCL 10 MG/10 ML UDC GT SCH ×5 (06:26→23:35)
[2019-01-22] MEDS: BACLOFEN (10 MG) 10 MG TABLET GT SCH ×5 (06:26→23:35)
[2019-01-22] MEDS: HYDROGEN PEROXIDE 480 ML BOTTLE TP SCH ×2 (07:36→21:00)
[2019-01-22 07:46] VITALS: BP 136/85
[2019-01-22] MEDS: PANTOPRAZOLE 40 MG/PACK PACK GT SCH ×2 (09:00→21:05)
[2019-01-22] MEDS: DOCUSATE SODIUM LIQ 100 MG/10 ML UDC GT SCH ×2 (09:57→17:33)
[2019-01-22] MEDS: METOPROLOL TARTRATE 25 MG TABLET GT SCH ×2 (09:57→21:05)
[2019-01-22] MEDS: FERROUS SULFATE UDC 300 MG/5 ML UDC GT SCH (09:57)
[2019-01-22] MEDS: LACTOBACILLUS RHAMNOSUS GG 1 EACH CAP.SPRINK GT SCH ×2 (09:57→17:33)
[2019-01-22] MEDS: LEVETIRACETAM SOL (5 ML) 100 MG/ML UDC GT SCH ×2 (09:57→21:04)
[2019-01-22] MEDS: TIZANIDINE HCL 4 MG TABLET GT SCH ×2 (09:58→21:05)
[2019-01-22] MEDS: TOPIRAMATE 25 MG TABLET GT SCH ×2 (09:58→21:05)
[2019-01-22] MEDS: LINEZOLID 600 MG TABLET GT SCH ×2 (09:58→21:05)
[2019-01-22] MEDS: ZINC SULFATE 220 MG CAPSULE GT SCH (09:58)
[2019-01-22] MEDS: PROSOURCE / PROSTAT (PYXIS) 30 ML UDC GT SCH ×3 (09:58→17:33)
[2019-01-22] MEDS: CHLORHEXIDINE GLUCONATE 15 ML UDC MM SCH ×2 (09:58→21:05)
[2019-01-22] MEDS: HYDROCODONE/APAP 5/325MG 1 EACH TABLET GT SCH ×2 (09:58→21:05)
[2019-01-22] MEDS: CLOTRIMAZOLE 1% 15 GM TUBE TP SCH ×8 (10:30→21:06)
[2019-01-22] MEDS: HYDROCORTISONE 1% CREAM 28.35 GM TUBE TP SCH ×4 (10:30→21:05)
[2019-01-22] MEDS: ZINC OXIDE 30 GM TUBE TP SCH ×8 (10:30→21:06)
[2019-01-22] MEDS: Z GUARD REMEDY 4 OZ OINT TP SCH ×4 (10:30→21:06)
[2019-01-22] MEDS: THERAHONEY GEL 1.5 OZ TUBE TP SCH ×3 (10:30→21:06)
[2019-01-22] MEDS: [UNRECOGNIZED DRUG - OTHER] TP SCH ×2 (10:30→21:06)
--- NOTE | 2019-01-22 14:00 | NUR ---
INTERDISCIPLINARY TEAM CONFERENCE (IDT) was held today. Resident's mother Vilma attended today's IDT meeting. Dr. Warren and the interdisciplinary team reviewed the current plan of care in detail. Orders as well as treatment, medications and skin condition were reviewed. Resident's mother expressed appreciation with the care received at this facility and became emotional as she shared how she feels with what had happen with her son. Staff provided support and allowed to vent her feelings. She mentioned that patient's skin is very sensitive and coconut oil is what works for him in the past, especially in the area where it is moist due to contracture. She also mentioned that if OK with Dr. Ybarra she wants him to have Cranberry pills for UTI prevention. Will ask an order from Dr. Ybarra during his rounds.
--- NOTE | 2019-01-22 14:50 | NUR ---
SW provided short counseling for pt.s mother, Vilma Beasley [phone] as she became tearful during IDT meeting. SW met with Vilma outside of pt.s room and Vilma was receptive to speaking with SW. Vilma continued to be tearful throughout the conversation. Vilma discussed having unresolved grief, non-traditional marital relationship as she resides in [place] due to work and her resident in [place] to remain near pt and spoke about her daughter who has had difficulty with the loss. SW provided empathetic listening and validated & normalized Sylvester unresolved grief. SW explored Sylvester current coping mechanisms. Vilma stated, I honestly dont know how were coping. We just do. SW reinforced the use of crying as a positive coping mechanism and educated Vilma on additional techniques (ie. Venting, strong support systems). SW discussed therapy as an option and stated its benefits. However, Vilma expressed that she is not interested. ZENIA provided Vilma with SW office number and informed her that SW will be available as needed to provide support and short-term counseling. Vilma expressed understanding and was agreeable to plan.
--- NOTE | 2019-01-22 15:47 | NUR ---
SW completed SS portion of admission MDS. The patients responsible democrat is his father, Oscar [phone] and mother, Vilma [phone] who are involved and supportive. The patient is ventilator dependent with trach, and Full Code. The patients is scheduled to have a dental exam and cleaning on 02/10/19 12:30 pm.
--- NOTE | 2019-01-22 16:12 | NUR ---
INTERDISCIPLINARY PLAN OF CARE CONFERENCE was held today. The patients responsible libertarian/mother Vilma Beasley [phone] was in attendance. Charge nurse discussed TX for UTI and sacral wound ;and condom catheter was D/C. Per Charge Nurse, Flu vaccine to be administered at the conclusion of antibiotic Tx. Dr. Warren and Interdisciplinary team discussed the plan of care in detail. Dr. Warren and IDT addressed all of familys questions. Per Vilma, she will provide coconut oil to be used as body moisturizer and provide cranberry supplement for UTI prevention for resident. Current orders as well as treatments and medications were reviewed. See other disciplines IDT notes for further details. Vilma became tearful as she vented regarding the residents condition. SW provided support after IDT meeting, see SS note for details.
[2019-01-22] MEDS: JEVITY 1.2 CAL 1,000 ML BOTTLE GT PRN (17:34)
[2019-01-22 19:37] VITALS: BP 119/79
[2019-01-22] MEDS: MULTIVITAMINS,THERAGRAN 1 UDTAB TABLET GT SCH (21:05)
[2019-01-22] MEDS: SENNOSIDES 8.6 MG TABLET GT SCH (21:06)
[2019-01-22] MEDS: CEFTAZIDIME 1 G in IV D5W 50 ML IV SCH (21:32)
[2019-01-23] MEDS: IPRATROPIUM NEB FS 0.5 MG/2.5 ML AMPUL.NEB IH SCH ×4 (01:35→19:58)
[2019-01-23] MEDS: ALBUTEROL FS 2.5 MG/3 ML VIAL.NEB IH SCH ×4 (01:35→19:58)
[2019-01-23] MEDS: CEFTAZIDIME 1 G in IV D5W 50 ML IV SCH ×3 (05:00→21:00)
[2019-01-23] MEDS: METOCLOPRAMIDE HCL 10 MG/10 ML UDC GT SCH ×4 (05:34→23:07)
[2019-01-23] MEDS: BACLOFEN (10 MG) 10 MG TABLET GT SCH ×4 (05:34→23:07)
[2019-01-23 07:03] LABS: BASOPHILS % (AUTO) 0.5 % (0.0-2.0); EOSINOPHILS % (AUTO) 5.5 % (0.0-6.0); HEMATOCRIT 33 % (39-51); HEMOGLOBIN 11.1 g/dL (13.5-17.5); LYMPHOCYTES # (AUTO) 0.9 /CMM (0.8-4.8); LYMPHOCYTES % (AUTO) 13.7 % (20.0-44.0); MEAN CORPUSCULAR HGB CONC 33 g/dl (31.0-36.0); MEAN CORPUSCULAR VOLUME 92 fL (80-96); MONOCYTES # (AUTO) 0.7 /CMM (0.1-1.30); MONOCYTES % (AUTO) 10.2 % (2.0-12.0); NEUTROPHILS # (AUTO) 4.7 /CMM (1.8-8.9); NEUTROPHILS % (AUTO) 70.1 % (43.0-81.0); PLATELET COUNT (AUTO) 194 /CMM (150-450); RED BLOOD CELL COUNT(AUTO) 3.59 MIL/uL (4.5-6.0); WHITE BLOOD COUNT (AUTO) 6.8 K/uL (4.3-11.0)
[2019-01-23 07:41] VITALS: BP 133/87
[2019-01-23] MEDS: ZINC OXIDE 30 GM TUBE TP SCH ×8 (09:00→21:00)
[2019-01-23] MEDS: CLOTRIMAZOLE 1% 15 GM TUBE TP SCH ×8 (09:00→21:00)
[2019-01-23] MEDS: [UNRECOGNIZED DRUG - OTHER] TP SCH ×2 (09:00→21:00)
[2019-01-23] MEDS: Z GUARD REMEDY 4 OZ OINT TP SCH ×4 (09:00→21:00)
[2019-01-23] MEDS: THERAHONEY GEL 1.5 OZ TUBE TP SCH ×3 (09:00→21:00)
[2019-01-23] MEDS: HYDROGEN PEROXIDE 480 ML BOTTLE TP SCH ×2 (09:00→21:05)
[2019-01-23] MEDS: HYDROCORTISONE 1% CREAM 28.35 GM TUBE TP SCH ×4 (09:00→21:00)
[2019-01-23] MEDS: FERROUS SULFATE UDC 300 MG/5 ML UDC GT SCH (09:43)
[2019-01-23] MEDS: DOCUSATE SODIUM LIQ 100 MG/10 ML UDC GT SCH ×2 (09:43→16:37)
[2019-01-23] MEDS: LACTOBACILLUS RHAMNOSUS GG 1 EACH CAP.SPRINK GT SCH ×2 (09:43→16:37)
[2019-01-23] MEDS: PROSOURCE / PROSTAT (PYXIS) 30 ML UDC GT SCH ×3 (09:44→16:37)
[2019-01-23] MEDS: LEVETIRACETAM SOL (5 ML) 100 MG/ML UDC GT SCH ×2 (09:44→21:00)
[2019-01-23] MEDS: HYDROCODONE/APAP 5/325MG 1 EACH TABLET GT SCH ×2 (09:44→21:00)
[2019-01-23] MEDS: METOPROLOL TARTRATE 25 MG TABLET GT SCH ×2 (09:44→21:00)
[2019-01-23] MEDS: PANTOPRAZOLE 40 MG/PACK PACK GT SCH ×2 (09:45→21:00)
[2019-01-23] MEDS: TOPIRAMATE 25 MG TABLET GT SCH ×2 (09:46→21:00)
[2019-01-23] MEDS: ZINC SULFATE 220 MG CAPSULE GT SCH (09:46)
[2019-01-23] MEDS: TIZANIDINE HCL 4 MG TABLET GT SCH ×2 (09:46→21:00)
[2019-01-23] MEDS: LINEZOLID 600 MG TABLET GT SCH ×2 (09:46→21:00)
[2019-01-23] MEDS: CHLORHEXIDINE GLUCONATE 15 ML UDC MM SCH ×2 (09:47→21:00)
[2019-01-23] MEDS: JEVITY 1.2 CAL 1,000 ML BOTTLE GT PRN (14:49)
[2019-01-23 19:52] VITALS: BP 128/81
[2019-01-23] MEDS: MULTIVITAMINS,THERAGRAN 1 UDTAB TABLET GT SCH (21:00)
[2019-01-23] MEDS: SENNOSIDES 8.6 MG TABLET GT SCH (22:48)
[2019-01-24] MEDS: IPRATROPIUM NEB FS 0.5 MG/2.5 ML AMPUL.NEB IH SCH ×4 (01:43→19:30)
[2019-01-24] MEDS: ALBUTEROL FS 2.5 MG/3 ML VIAL.NEB IH SCH ×4 (01:43→19:30)
[2019-01-24] MEDS: CEFTAZIDIME 1 G in IV D5W 50 ML IV SCH ×3 (05:00→21:00)
[2019-01-24] MEDS: METOCLOPRAMIDE HCL 10 MG/10 ML UDC GT SCH ×4 (05:31→23:55)
[2019-01-24] MEDS: BACLOFEN (10 MG) 10 MG TABLET GT SCH ×4 (05:31→23:55)
--- NOTE | 2019-01-24 05:36 | NUR ---
RT PATIENT WAS RECEIVED ON CONTINUOUS VENT SUPPORT ON NOTED VENT SETTINGS.AIRWAY PATENT AND SECURED. PATIENT STABLE THROUGHOUT THE SHIFT.WILL CONTINUE TO MONITOR. Addendum: 01/24/19 at 0536 by TERRY GONZALEZ RT Amended: Links added.
--- NOTE | 2019-01-24 07:46 | NUR ---
RT Pt received trached on the vent with noted settings. Pt is awake but does not follow commands. Vent is plugged into red outlet. HHN tx tolerated well with no adverse reactions. No respiratory distress noted at this time. Addendum: 01/24/19 at 1542 by MARA SHORT RT Amended: Links added.
[2019-01-24 07:48] VITALS: BP 129/96
[2019-01-24] MEDS: [UNRECOGNIZED DRUG - OTHER] TP SCH ×2 (09:00→20:46)
[2019-01-24] MEDS: CLOTRIMAZOLE 1% 15 GM TUBE TP SCH ×8 (09:00→20:46)
[2019-01-24] MEDS: Z GUARD REMEDY 4 OZ OINT TP SCH ×4 (09:00→20:46)
[2019-01-24] MEDS: ZINC OXIDE 30 GM TUBE TP SCH ×8 (09:00→20:46)
[2019-01-24] MEDS: HYDROGEN PEROXIDE 480 ML BOTTLE TP SCH ×2 (09:00→21:00)
[2019-01-24] MEDS: HYDROCORTISONE 1% CREAM 28.35 GM TUBE TP SCH ×4 (09:00→20:45)
[2019-01-24] MEDS: THERAHONEY GEL 1.5 OZ TUBE TP SCH ×3 (09:00→20:46)
[2019-01-24] MEDS: LEVETIRACETAM SOL (5 ML) 100 MG/ML UDC GT SCH ×2 (09:32→20:44)
[2019-01-24] MEDS: FERROUS SULFATE UDC 300 MG/5 ML UDC GT SCH (09:32)
[2019-01-24] MEDS: DOCUSATE SODIUM LIQ 100 MG/10 ML UDC GT SCH ×2 (09:32→17:18)
[2019-01-24] MEDS: METOPROLOL TARTRATE 25 MG TABLET GT SCH ×2 (09:32→20:44)
[2019-01-24] MEDS: LACTOBACILLUS RHAMNOSUS GG 1 EACH CAP.SPRINK GT SCH ×2 (09:32→17:18)
[2019-01-24] MEDS: LINEZOLID 600 MG TABLET GT SCH ×2 (09:33→20:45)
[2019-01-24] MEDS: PANTOPRAZOLE 40 MG/PACK PACK GT SCH ×2 (09:33→20:45)
[2019-01-24] MEDS: CHLORHEXIDINE GLUCONATE 15 ML UDC MM SCH ×2 (09:33→20:45)
[2019-01-24] MEDS: TIZANIDINE HCL 4 MG TABLET GT SCH ×2 (09:33→20:45)
[2019-01-24] MEDS: PROSOURCE / PROSTAT (PYXIS) 30 ML UDC GT SCH ×3 (09:33→17:18)
[2019-01-24] MEDS: TOPIRAMATE 25 MG TABLET GT SCH ×2 (09:33→20:45)
[2019-01-24] MEDS: ZINC SULFATE 220 MG CAPSULE GT SCH (09:33)
[2019-01-24] MEDS: HYDROCODONE/APAP 5/325MG 1 EACH TABLET GT SCH ×2 (09:33→20:45)
[2019-01-24] MEDS: JEVITY 1.2 CAL 1,000 ML BOTTLE GT PRN (13:50)
[2019-01-24 19:49] VITALS: BP 133/74
[2019-01-24] MEDS: MULTIVITAMINS,THERAGRAN 1 UDTAB TABLET GT SCH (20:45)
[2019-01-24] MEDS: SENNOSIDES 8.6 MG TABLET GT SCH (21:49)
[2019-01-25] MEDS: ALBUTEROL FS 2.5 MG/3 ML VIAL.NEB IH SCH ×4 (02:11→20:25)
[2019-01-25] MEDS: IPRATROPIUM NEB FS 0.5 MG/2.5 ML AMPUL.NEB IH SCH ×4 (02:11→20:25)
[2019-01-25] MEDS: CEFTAZIDIME 1 G in IV D5W 50 ML IV SCH ×3 (05:00→21:00)
[2019-01-25] MEDS: BACLOFEN (10 MG) 10 MG TABLET GT SCH ×3 (05:36→17:33)
[2019-01-25] MEDS: METOCLOPRAMIDE HCL 10 MG/10 ML UDC GT SCH ×3 (05:36→17:33)
[2019-01-25] MEDS: HYDROGEN PEROXIDE 480 ML BOTTLE TP SCH ×2 (07:15→21:50)
[2019-01-25 07:40] VITALS: BP 142/93
[2019-01-25] MEDS: LEVETIRACETAM SOL (5 ML) 100 MG/ML UDC GT SCH ×2 (08:46→20:46)
[2019-01-25] MEDS: FERROUS SULFATE UDC 300 MG/5 ML UDC GT SCH (08:46)
[2019-01-25] MEDS: DOCUSATE SODIUM LIQ 100 MG/10 ML UDC GT SCH ×2 (08:46→17:32)
[2019-01-25] MEDS: METOPROLOL TARTRATE 25 MG TABLET GT SCH ×2 (08:47→20:48)
[2019-01-25] MEDS: ZINC SULFATE 220 MG CAPSULE GT SCH (08:48)
[2019-01-25] MEDS: HYDROCODONE/APAP 5/325MG 1 EACH TABLET GT SCH ×2 (08:48→20:48)
[2019-01-25] MEDS: TOPIRAMATE 25 MG TABLET GT SCH ×2 (08:48→20:49)
[2019-01-25] MEDS: CHLORHEXIDINE GLUCONATE 15 ML UDC MM SCH ×2 (08:48→20:51)
[2019-01-25] MEDS: LINEZOLID 600 MG TABLET GT SCH ×2 (08:48→20:47)
[2019-01-25] MEDS: PROSOURCE / PROSTAT (PYXIS) 30 ML UDC GT SCH ×3 (08:48→17:32)
[2019-01-25] MEDS: PANTOPRAZOLE 40 MG/PACK PACK GT SCH ×2 (08:48→20:50)
[2019-01-25] MEDS: TIZANIDINE HCL 4 MG TABLET GT SCH ×2 (08:48→20:47)
[2019-01-25] MEDS: ZINC OXIDE 30 GM TUBE TP SCH ×4 (09:00)
[2019-01-25] MEDS: HYDROCORTISONE 1% CREAM 28.35 GM TUBE TP SCH ×4 (09:00→20:51)
[2019-01-25] MEDS: [UNRECOGNIZED DRUG - OTHER] TP SCH (09:00)
[2019-01-25] MEDS: Z GUARD REMEDY 4 OZ OINT TP SCH ×4 (09:00→20:52)
[2019-01-25] MEDS: THERAHONEY GEL 1.5 OZ TUBE TP SCH ×3 (09:00→20:52)
[2019-01-25] MEDS: CLOTRIMAZOLE 1% 15 GM TUBE TP SCH ×8 (09:00→20:51)
[2019-01-25] MEDS: LACTOBACILLUS RHAMNOSUS GG 1 EACH CAP.SPRINK GT SCH ×2 (09:00→17:32)
--- NOTE | 2019-01-25 09:20 | NUR ---
Seen by Dr Ybarra. Referred coconut oil and Cranberry D-Mannose provided by family. He ordered to use coconut oil as body moisturizer and Cranberry D-Mannose 3 capsules via G-tube daily for UTI prophylaxis. Notified pt's mother.
[2019-01-25] MEDS ORDERED: COCONUT OIL TP PRN (11:00)
[2019-01-25] MEDS: JEVITY 1.2 CAL 1,000 ML BOTTLE GT PRN (11:53)
--- NOTE | 2019-01-25 15:25 | NUR ---
Seen by Dr Corey Woodard and his MAL López. Received order to change treatment on posterior neck skin tear. MAL Samuel said she will discuss the wound with wound nurse Aracelis. She ordered to apply Hydrogel on the posterior neck wound and cover with Mepilex dressing.
[2019-01-25 20:24] VITALS: BP 136/87
--- NOTE | 2019-01-25 20:26 | NUR ---
RT NOTES: PT RECEIVED TRACHED ON [facility] VENT ON CHARTED SETTINGS. NO SIGNS OF RESP DISTRESS/SOB NOTED AT THIS TIME. AIRWAY PATENT AND SECURED. ROTARY VENEER MACHINE OPERATOR DONE. PT SUCTIONED. HHN TX GIVEN. NO ADVERSE REACTIONS NOTED. ALARMS SET AND AUDIBLE. AMBUBABG AND SPARE TRACH AT BEDSIDE. VENT CONNECTED TO RED OUTLET. WILL CONT TO MONITOR. Addendum: 01/25/19 at 2202 by MARIA LUISA RODGERS RT Amended: Links added.
[2019-01-25] MEDS: MULTIVITAMINS,THERAGRAN 1 UDTAB TABLET GT SCH (20:49)
[2019-01-25] MEDS: HYDROGEL DRESSING 90 GM TUBE TP SCH (20:51)
[2019-01-25] MEDS: SENNOSIDES 8.6 MG TABLET GT SCH (22:30)
[2019-01-26] MEDS: BACLOFEN (10 MG) 10 MG TABLET GT SCH ×4 (00:21→17:49)
[2019-01-26] MEDS: METOCLOPRAMIDE HCL 10 MG/10 ML UDC GT SCH ×4 (00:21→17:49)
[2019-01-26] MEDS: ALBUTEROL FS 2.5 MG/3 ML VIAL.NEB IH SCH ×4 (01:40→20:09)
[2019-01-26] MEDS: IPRATROPIUM NEB FS 0.5 MG/2.5 ML AMPUL.NEB IH SCH ×4 (01:40→20:09)
[2019-01-26] MEDS: CEFTAZIDIME 1 G in IV D5W 50 ML IV SCH ×3 (05:00→20:58)
[2019-01-26 07:54] VITALS: BP 126/77
--- NOTE | 2019-01-26 07:56 | NUR ---
RT Pt received trached on the vent with noted settings. Vent is plugged into red outlet. No SOB or respiratory distress noted. Addendum: 01/26/19 at 1842 by MARA SHORT RT Amended: Links added.
[2019-01-26] MEDS: HYDROGEN PEROXIDE 480 ML BOTTLE TP SCH ×2 (09:00→20:36)
[2019-01-26] MEDS: LACTOBACILLUS RHAMNOSUS GG 1 EACH CAP.SPRINK GT SCH ×2 (09:53→17:47)
[2019-01-26] MEDS: DOCUSATE SODIUM LIQ 100 MG/10 ML UDC GT SCH ×2 (09:53→17:47)
[2019-01-26] MEDS: LEVETIRACETAM SOL (5 ML) 100 MG/ML UDC GT SCH ×2 (09:53→20:12)
[2019-01-26] MEDS: FERROUS SULFATE UDC 300 MG/5 ML UDC GT SCH (09:53)
[2019-01-26] MEDS: PANTOPRAZOLE 40 MG/PACK PACK GT SCH ×2 (09:54→20:13)
[2019-01-26] MEDS: METOPROLOL TARTRATE 25 MG TABLET GT SCH ×2 (09:54→20:16)
[2019-01-26] MEDS: TOPIRAMATE 25 MG TABLET GT SCH ×2 (09:54→20:19)
[2019-01-26] MEDS: PROSOURCE / PROSTAT (PYXIS) 30 ML UDC GT SCH ×3 (09:54→17:50)
[2019-01-26] MEDS: CHLORHEXIDINE GLUCONATE 15 ML UDC MM SCH ×2 (09:54→20:19)
[2019-01-26] MEDS: ZINC SULFATE 220 MG CAPSULE GT SCH (09:54)
[2019-01-26] MEDS: TIZANIDINE HCL 4 MG TABLET GT SCH ×2 (09:54→20:17)
[2019-01-26] MEDS: HYDROCODONE/APAP 5/325MG 1 EACH TABLET GT SCH ×2 (09:54→20:13)
[2019-01-26] MEDS: HYDROGEL DRESSING 90 GM TUBE TP SCH ×2 (09:54→20:19)
[2019-01-26] MEDS: CRANBERRY D MANNOSE TP SCH (09:54)
[2019-01-26] MEDS: LINEZOLID 600 MG TABLET GT SCH ×2 (09:54→20:15)
[2019-01-26] MEDS: Z GUARD REMEDY 4 OZ OINT TP SCH ×4 (09:55→20:19)
[2019-01-26] MEDS: CLOTRIMAZOLE 1% 15 GM TUBE TP SCH ×8 (09:55→20:19)
[2019-01-26] MEDS: HYDROCORTISONE 1% CREAM 28.35 GM TUBE TP SCH ×3 (09:55→17:47)
[2019-01-26] MEDS: THERAHONEY GEL 1.5 OZ TUBE TP SCH ×3 (09:56→20:19)
[2019-01-26] MEDS: JEVITY 1.2 CAL 1,000 ML BOTTLE GT PRN (12:44)
[2019-01-26] MEDS: MULTIVITAMINS,THERAGRAN 1 UDTAB TABLET GT SCH (20:14)
[2019-01-26 20:40] VITALS: BP 133/98
--- NOTE | 2019-01-26 21:41 | NUR ---
RT NOTE PT RECEIVED ON MECHANICAL VENTILATION. AMBU BAG/BACK UP TRACH @ BEDSIDE. TX GIVEN, NO ADVERSE REACTIONS NOTED. SX DONE, TRACH SECURED AND PATENT. NO SOB NOTED. ALARMS ON AND AUDIBLE. WILL MONITOR T/O SHIFT. Addendum: 01/26/19 at 2142 by JAIRO KOO RT Amended: Links added.
--- NOTE | 2019-01-26 21:56 | NUR ---
PT RECEIVED FR MORNING SHIFT WITH A LOW GRADE FEVER OF 100.9, COOLING MEASURE STARTED AND CHARGE NURSE INFORM ON THE PTS CONDITION, PT IS ON ATB ALREADY AND AFTER AN HR PTS TEMP WAS JANICE AND IT WAS 98.8, CONTINUE TO MONITOR PTS TEMP.
[2019-01-26] MEDS: SENNOSIDES 8.6 MG TABLET GT SCH (22:01)
[2019-01-27] MEDS: BACLOFEN (10 MG) 10 MG TABLET GT SCH ×5 (00:33→23:48)
[2019-01-27] MEDS: METOCLOPRAMIDE HCL 10 MG/10 ML UDC GT SCH ×5 (00:33→23:48)
[2019-01-27] MEDS: IPRATROPIUM NEB FS 0.5 MG/2.5 ML AMPUL.NEB IH SCH ×4 (02:10→19:30)
[2019-01-27] MEDS: ALBUTEROL FS 2.5 MG/3 ML VIAL.NEB IH SCH ×4 (02:10→19:30)
[2019-01-27] MEDS: CEFTAZIDIME 1 G in IV D5W 50 ML IV SCH ×3 (05:00→20:58)
--- NOTE | 2019-01-27 05:00 | NUR ---
RN NOTES Noted midline pulled out, no bleeding noted. Received new order from Dr. Ybarra to d/c midline and ok to insert peripheral IV line in lower extremities d/t poor IV access. Reinserted IV to right lower leg, aseptic technique observed.
[2019-01-27] MEDS: JEVITY 1.2 CAL 1,000 ML BOTTLE GT PRN (06:25)
[2019-01-27 07:37] VITALS: BP 132/97
[2019-01-27 08:00] VITALS: BP 132/97
[2019-01-27] MEDS: DOCUSATE SODIUM LIQ 100 MG/10 ML UDC GT SCH ×2 (08:35→17:54)
[2019-01-27] MEDS: FERROUS SULFATE UDC 300 MG/5 ML UDC GT SCH (08:35)
[2019-01-27] MEDS: LACTOBACILLUS RHAMNOSUS GG 1 EACH CAP.SPRINK GT SCH ×2 (08:35→17:54)
[2019-01-27] MEDS: LEVETIRACETAM SOL (5 ML) 100 MG/ML UDC GT SCH ×2 (08:36→21:18)
[2019-01-27] MEDS: HYDROCODONE/APAP 5/325MG 1 EACH TABLET GT SCH ×2 (08:37→21:20)
[2019-01-27] MEDS: PANTOPRAZOLE 40 MG/PACK PACK GT SCH ×2 (08:37→21:20)
[2019-01-27] MEDS: METOPROLOL TARTRATE 25 MG TABLET GT SCH ×2 (08:37→21:19)
[2019-01-27] MEDS: PROSOURCE / PROSTAT (PYXIS) 30 ML UDC GT SCH ×3 (08:37→17:54)
[2019-01-27] MEDS: TIZANIDINE HCL 4 MG TABLET GT SCH ×2 (08:38→21:20)
[2019-01-27] MEDS: CRANBERRY D MANNOSE TP SCH (08:38)
[2019-01-27] MEDS: TOPIRAMATE 25 MG TABLET GT SCH ×2 (08:38→21:20)
[2019-01-27] MEDS: ZINC SULFATE 220 MG CAPSULE GT SCH (08:38)
[2019-01-27] MEDS: LINEZOLID 600 MG TABLET GT SCH ×2 (08:38→21:20)
[2019-01-27] MEDS: CHLORHEXIDINE GLUCONATE 15 ML UDC MM SCH ×2 (08:38→21:20)
[2019-01-27 09:00] VITALS: BP 132/97
[2019-01-27] MEDS: CLOTRIMAZOLE 1% 15 GM TUBE TP SCH ×8 (09:00→21:21)
[2019-01-27] MEDS: HYDROGEN PEROXIDE 480 ML BOTTLE TP SCH ×2 (09:00→21:00)
[2019-01-27] MEDS: HYDROCORTISONE 1% CREAM 28.35 GM TUBE TP SCH ×2 (09:00→17:54)
[2019-01-27] MEDS: Z GUARD REMEDY 4 OZ OINT TP SCH ×4 (09:00→21:21)
--- NOTE | 2019-01-27 11:31 | NUR ---
RT PT RCV'D TRACH'D ON [facility] VENT WITH SETTINGS PER MD ORDER. STREET SUPERVISOR DONE. SPARE TRACH AND AMBU BAG AT BEDSIDE. SX'D SMALL AMOUNTS OF SECRETIONS. VENT PLUGGED INTO RED OUTLET. BREATHING TX'S GIVEN ORDERED. NO ADVERSE REACTIONS OBSERVED. NO SOB NOTED AT THIS TIME. WILL CONTINUE TO MONITOR. TRACH CARE DONE. Addendum: 01/27/19 at 1748 by SARAI STRICKLAND RT Amended: Links added.
[2019-01-27 12:00] VITALS: BP 126/84
[2019-01-27] MEDS: HYDROGEL DRESSING 90 GM TUBE TP SCH ×2 (14:12→21:22)
[2019-01-27] MEDS: THERAHONEY GEL 1.5 OZ TUBE TP SCH ×3 (14:13→21:21)
[2019-01-27 18:09] VITALS: BP 131/86
[2019-01-27 20:37] VITALS: BP 136/81
[2019-01-27] MEDS: MULTIVITAMINS,THERAGRAN 1 UDTAB TABLET GT SCH (21:20)
[2019-01-27] MEDS: SENNOSIDES 8.6 MG TABLET GT SCH (21:21)
[2019-01-28] MEDS: JEVITY 1.2 CAL 1,000 ML BOTTLE GT PRN (00:30)
[2019-01-28] MEDS: IPRATROPIUM NEB FS 0.5 MG/2.5 ML AMPUL.NEB IH SCH ×4 (01:05→19:40)
[2019-01-28] MEDS: ALBUTEROL FS 2.5 MG/3 ML VIAL.NEB IH SCH ×4 (01:05→19:41)
[2019-01-28] MEDS: CEFTAZIDIME 1 G in IV D5W 50 ML IV SCH ×3 (05:00→20:20)
[2019-01-28] MEDS: BACLOFEN (10 MG) 10 MG TABLET GT SCH ×3 (05:22→17:24)
[2019-01-28] MEDS: METOCLOPRAMIDE HCL 10 MG/10 ML UDC GT SCH ×3 (05:22→17:24)
[2019-01-28 06:54] LABS: BASOPHILS % (AUTO) 0.6 % (0.0-2.0); EOSINOPHILS % (AUTO) 4.4 % (0.0-6.0); HEMATOCRIT 34 % (39-51); HEMOGLOBIN 11.5 g/dL (13.5-17.5); LYMPHOCYTES # (AUTO) 1.1 /CMM (0.8-4.8); LYMPHOCYTES % (AUTO) 19.4 % (20.0-44.0); MEAN CORPUSCULAR HGB CONC 33 g/dl (31.0-36.0); MEAN CORPUSCULAR VOLUME 92 fL (80-96); MONOCYTES # (AUTO) 0.8 /CMM (0.1-1.30); MONOCYTES % (AUTO) 14.9 % (2.0-12.0); NEUTROPHILS # (AUTO) 3.4 /CMM (1.8-8.9); NEUTROPHILS % (AUTO) 60.7 % (43.0-81.0); PLATELET COUNT (AUTO) 203 /CMM (150-450); RED BLOOD CELL COUNT(AUTO) 3.73 MIL/uL (4.5-6.0); WHITE BLOOD COUNT (AUTO) 5.6 K/uL (4.3-11.0)
[2019-01-28 07:34] VITALS: BP 100/53
[2019-01-28] MEDS: HYDROGEN PEROXIDE 480 ML BOTTLE TP SCH ×2 (08:27→20:58)
[2019-01-28] MEDS: FERROUS SULFATE UDC 300 MG/5 ML UDC GT SCH (09:00)
[2019-01-28] MEDS: LINEZOLID 600 MG TABLET GT SCH ×2 (09:00→21:07)
[2019-01-28] MEDS: CRANBERRY D MANNOSE TP SCH (09:00)
[2019-01-28] MEDS: ZINC SULFATE 220 MG CAPSULE GT SCH (09:00)
[2019-01-28] MEDS: CHLORHEXIDINE GLUCONATE 15 ML UDC MM SCH ×2 (09:00→21:07)
[2019-01-28] MEDS: METOPROLOL TARTRATE 25 MG TABLET GT SCH ×2 (09:00→21:06)
[2019-01-28] MEDS: LACTOBACILLUS RHAMNOSUS GG 1 EACH CAP.SPRINK GT SCH ×2 (09:00→17:23)
[2019-01-28] MEDS: TOPIRAMATE 25 MG TABLET GT SCH ×2 (09:00→21:07)
[2019-01-28] MEDS: DOCUSATE SODIUM LIQ 100 MG/10 ML UDC GT SCH ×2 (09:00→17:23)
[2019-01-28] MEDS: PANTOPRAZOLE 40 MG/PACK PACK GT SCH ×2 (09:00→21:06)
[2019-01-28] MEDS: TIZANIDINE HCL 4 MG TABLET GT SCH ×2 (09:00→21:07)
[2019-01-28] MEDS: LEVETIRACETAM SOL (5 ML) 100 MG/ML UDC GT SCH ×2 (09:00→21:05)
[2019-01-28] MEDS: PROSOURCE / PROSTAT (PYXIS) 30 ML UDC GT SCH ×3 (09:00→17:23)
[2019-01-28] MEDS: HYDROCODONE/APAP 5/325MG 1 EACH TABLET GT SCH ×2 (10:20→21:06)
[2019-01-28] MEDS: CLOTRIMAZOLE 1% 15 GM TUBE TP SCH ×8 (10:50→21:08)
[2019-01-28] MEDS: THERAHONEY GEL 1.5 OZ TUBE TP SCH ×3 (10:50→21:08)
[2019-01-28] MEDS: Z GUARD REMEDY 4 OZ OINT TP SCH ×4 (10:50→21:08)
[2019-01-28] MEDS: HYDROGEL DRESSING 90 GM TUBE TP SCH ×2 (10:50→21:08)
--- NOTE | 2019-01-28 14:39 | NUR ---
ZENIA contacted filler feeder office to schedule apt. with Dr. Mims [phone] and spoke to Alena. Per Alena, Dr. Mims is available to service the pt. tomorrow 01/29/19 after 10 am. ZENIA informed charge nurse and patients father, Larry Beasley [phone] who was agreeable to plan. ZENIA faxed residents face sheet to FAX: [phone] and received completed fax receipt.
[2019-01-28 20:28] VITALS: BP 136/88
--- NOTE | 2019-01-28 20:30 | NUR ---
Seen and examined by DENNIS Jernigan no new order.
--- NOTE | 2019-01-28 20:59 | NUR ---
Pt rec'd trached on [facility] vent on AC mode. No resp distress or SOB noted. Trach is patent and secured. Sx'd mod amt of thick pale yellow secretions. Alarms are set and audible. Vent plugged into red outlet. Ambu bag bedside. Addendum: 01/28/19 at 2103 by YOVANA DE LA GARZA RT Amended: Links added.
[2019-01-28] MEDS: MULTIVITAMINS,THERAGRAN 1 UDTAB TABLET GT SCH (21:06)
[2019-01-28] MEDS: SENNOSIDES 8.6 MG TABLET GT SCH (22:29)
[2019-01-29] VITALS (7 sets, daily range): BP systolic 119–149; BP diastolic 68–99
[2019-01-29] MEDS: METOCLOPRAMIDE HCL 10 MG/10 ML UDC GT SCH ×5 (00:58→23:54)
[2019-01-29] MEDS: BACLOFEN (10 MG) 10 MG TABLET GT SCH ×5 (00:58→23:54)
[2019-01-29] MEDS: IPRATROPIUM NEB FS 0.5 MG/2.5 ML AMPUL.NEB IH SCH ×4 (01:51→20:06)
[2019-01-29] MEDS: ALBUTEROL FS 2.5 MG/3 ML VIAL.NEB IH SCH ×4 (01:51→20:06)
[2019-01-29] MEDS: CEFTAZIDIME 1 G in IV D5W 50 ML IV SCH ×3 (05:00→21:00)
--- NOTE | 2019-01-29 08:26 | NUR ---
Notified Dr. Ybarra, patient with T102.0, 149/68, 135, 25, O2 sat 98%. Last dose of IV antibiotic Ceftazidime today. New order given to do CXR, BCx2, UA and C&S, stat CBC and BMP. Dr. Ybarra said to notify CAR AND YARD SUPERVISOR Gena of result. Tylenol suppository administered and cooling measures provided. Left a message to resident's mother regarding change in condition.
[2019-01-29 08:51] LABS: BASOPHILS % (AUTO) 0.3 % (0.0-2.0); HEMATOCRIT 37 % (39-51); HEMOGLOBIN 12.2 g/dL (13.5-17.5); LYMPHOCYTES # (AUTO) 0.8 /CMM (0.8-4.8); LYMPHOCYTES % (AUTO) 7.2 % (20.0-44.0); MEAN CORPUSCULAR HGB CONC 33 g/dl (31.0-36.0); MEAN CORPUSCULAR VOLUME 92 fL (80-96); MONOCYTES # (AUTO) 1.3 /CMM (0.1-1.30); MONOCYTES % (AUTO) 11.2 % (2.0-12.0); NEUTROPHILS # (AUTO) 9.1 /CMM (1.8-8.9); NEUTROPHILS % (AUTO) 80.3 % (43.0-81.0); PLATELET COUNT (AUTO) 239 /CMM (150-450); RED BLOOD CELL COUNT(AUTO) 4.02 MIL/uL (4.5-6.0); WHITE BLOOD COUNT (AUTO) 11.4 K/uL (4.3-11.0)
[2019-01-29 09:00] LABS: CALCIUM, SERUM 9.4 mg/dL (8.5-10.1); CREATININE 0.8 mg/dL (0.6-1.3); POTASSIUM 4.1 mmol/L (3.5-5.1)
[2019-01-29] MEDS: TOPIRAMATE 25 MG TABLET GT SCH ×2 (09:00→21:12)
[2019-01-29] MEDS: PROSOURCE / PROSTAT (PYXIS) 30 ML UDC GT SCH ×3 (09:00→16:33)
[2019-01-29] MEDS: DOCUSATE SODIUM LIQ 100 MG/10 ML UDC GT SCH ×2 (09:00→16:33)
[2019-01-29] MEDS: FERROUS SULFATE UDC 300 MG/5 ML UDC GT SCH (09:00)
[2019-01-29] MEDS: LEVETIRACETAM SOL (5 ML) 100 MG/ML UDC GT SCH ×2 (09:00→21:11)
[2019-01-29] MEDS: TIZANIDINE HCL 4 MG TABLET GT SCH ×2 (09:00→21:12)
[2019-01-29] MEDS: ZINC SULFATE 220 MG CAPSULE GT SCH (09:00)
[2019-01-29] MEDS: LACTOBACILLUS RHAMNOSUS GG 1 EACH CAP.SPRINK GT SCH ×2 (09:00→16:33)
[2019-01-29] MEDS: LINEZOLID 600 MG TABLET GT SCH ×2 (09:00→21:12)
[2019-01-29] MEDS: CHLORHEXIDINE GLUCONATE 15 ML UDC MM SCH ×2 (09:00→21:12)
[2019-01-29] MEDS: CRANBERRY D MANNOSE TP SCH (09:00)
[2019-01-29] MEDS: PANTOPRAZOLE 40 MG/PACK PACK GT SCH ×2 (09:00→21:12)
[2019-01-29] MEDS: HYDROGEN PEROXIDE 480 ML BOTTLE TP SCH ×2 (09:30→20:06)
[2019-01-29] MEDS: METOPROLOL TARTRATE 25 MG TABLET GT SCH ×2 (09:34→21:11)
[2019-01-29] MEDS: ACETAMINOPHEN 650 MG SUPP.RECT RC PRN ×2 (09:34→16:37)
--- NOTE | 2019-01-29 10:21 | NUR ---
Notified DIRECTOR OF HOME CARE HOSPICE Gena of ppatient's increase in temperature and result of BMP and CBC with WBC of 11.4. With order to do bladder scan and insert Sloan if residual is above 300ml., assigned nurse informed.
[2019-01-29] MEDS: HYDROCODONE/APAP 5/325MG 1 EACH TABLET GT SCH ×2 (10:50→21:12)
[2019-01-29] MEDS: THERAHONEY GEL 1.5 OZ TUBE TP SCH ×3 (11:20→21:13)
[2019-01-29] MEDS: CLOTRIMAZOLE 1% 15 GM TUBE TP SCH ×8 (11:20→21:12)
[2019-01-29] MEDS: Z GUARD REMEDY 4 OZ OINT TP SCH ×4 (11:20→21:12)
[2019-01-29] MEDS: HYDROGEL DRESSING 90 GM TUBE TP SCH ×2 (11:20→21:12)
--- NOTE | 2019-01-29 15:28 | NUR ---
The patient had their optometry exam today conducted by Dr. Mims [phone] at patient's bedside. NNO given. The optometry note was filed in patients chart. ZENIA informed the pt.'s mother, Vilma [phone] regarding optometry visit and informed them that Dr. Vance office [phone] can be contacted for Dx or Tx details. Vilma was agreeable to plan.
--- NOTE | 2019-01-29 17:17 | NUR ---
Pt receive stable on MV, settings are AC 12, 500, +5 PEEP at 40% FiO2, alarms are on and audible, vent is plug at red outlet, trach patent and secured, all tx given and no adverse reaction observe. Addendum: 01/29/19 at 1718 by AMANDA GALLO RT Amended: Links added.
[2019-01-29 18:35] LABS: APPEARANCE,URINE CLOUDY (CLEAR); BILIRUBIN,URINE NEGATIVE (NEGATIVE); BLOOD, URINE LARGE Ery/uL (NEGATIVE); COLOR,URINE YELLOW (YELLOW); KETONES,URINE NEGATIVE (NEGATIVE); LEUKOCYTE ESTERASE ,URINE TRACE (NEGATIVE); NITRITE, URINE NEGATIVE (NEGATIVE); PH,URINE 8.5 (5.0-8.0); PROTEIN,URINE 30 mg/dl (NEGATIVE); UGLUCOSE NEGATIVE (NEGATIVE); UROBILINOGEN,URINE 0.2 EU/dL (0.2)
[2019-01-29 18:45] LABS: BACTERIA,URINE None seen /HPF (None Seen); RBC,URINE 51-80 /HPF (0-2); SQUAMOUS EPITHELIAL CELL,UR Few /HPF (None Seen)
--- NOTE | 2019-01-29 19:00 | NUR ---
See and examined by REBECA Fletcher, reviewed labs, chest X-ray, with order to continue Fortaz IV Q 8 hours until culture result are available. Resident's dad informed. Order carried out.
--- NOTE | 2019-01-29 20:06 | NUR ---
RT NOTE: RECEIVED TRACH PT ON [facility] VENT ON NOTED SETTINGS PER MD ORDERS. TRACH IS PATENT AND SECURED. TRACH CARE DONE. CHIEF RADIOLOGIC TECHNOLOGIST DONE. Q6 BREATHING TX GIVEN WITH NO ADVERSE REACTION NOTED. SX DONE PRN. VENT PLUGGED INTO RED OUTLET. ALARMS ON AND AUDIBLE. KARTIKU BAG @ BEDSIDE. NO RESP DISTRESS AT THIS TIME. WILL CONT TO MONITOR PT. Addendum: 01/30/19 at 0513 by KELLY HOPE RT Amended: Links added.
[2019-01-29] MEDS: MULTIVITAMINS,THERAGRAN 1 UDTAB TABLET GT SCH (21:12)
[2019-01-29] MEDS: SENNOSIDES 8.6 MG TABLET GT SCH (21:13)
[2019-01-30] MEDS: ALBUTEROL FS 2.5 MG/3 ML VIAL.NEB IH SCH ×4 (01:59→19:16)
[2019-01-30] MEDS: IPRATROPIUM NEB FS 0.5 MG/2.5 ML AMPUL.NEB IH SCH ×4 (01:59→19:16)
[2019-01-30] MEDS: CEFTAZIDIME 1 G in IV D5W 50 ML IV SCH ×2 (05:00→13:00)
[2019-01-30] MEDS: BACLOFEN (10 MG) 10 MG TABLET GT SCH ×4 (05:41→23:14)
[2019-01-30] MEDS: METOCLOPRAMIDE HCL 10 MG/10 ML UDC GT SCH ×4 (05:41→23:14)
[2019-01-30] MEDS: ACETAMINOPHEN 650 MG/20 ML UDC- SA PATIENTS-FEVER ONLY GT PRN ×2 (05:42→11:58)
--- NOTE | 2019-01-30 05:42 | NUR ---
Temp 102.0,cooling measures provided.Tylenol given will continue to monitor.
[2019-01-30 07:48] VITALS: BP 129/81
--- NOTE | 2019-01-30 08:02 | NUR ---
RT NOTE: RECEIVED TRACH PT ON [facility] VENT ON NOTED SETTINGS PER MD ORDERS. TRACH IS PATENT AND SECURED. TRACH CARE DONE. PADDOCK JUDGE DONE. Q6 BREATHING TX GIVEN WITH NO ADVERSE REACTION NOTED. SX DONE PRN. VENT PLUGGED INTO RED OUTLET. ALARMS ON AND AUDIBLE. AMBU BAG @ BEDSIDE. NO RESP DISTRESS AT THIS TIME. WILL CONT TO MONITOR PT.
[2019-01-30] MEDS: TOPIRAMATE 25 MG TABLET GT SCH ×2 (08:12→21:12)
[2019-01-30] MEDS: LACTOBACILLUS RHAMNOSUS GG 1 EACH CAP.SPRINK GT SCH ×2 (08:12→16:06)
[2019-01-30] MEDS: LEVETIRACETAM SOL (5 ML) 100 MG/ML UDC GT SCH ×2 (08:12→21:12)
[2019-01-30] MEDS: PANTOPRAZOLE 40 MG/PACK PACK GT SCH ×2 (08:12→21:12)
[2019-01-30] MEDS: METOPROLOL TARTRATE 25 MG TABLET GT SCH ×2 (08:12→21:12)
[2019-01-30] MEDS: DOCUSATE SODIUM LIQ 100 MG/10 ML UDC GT SCH ×2 (08:12→16:06)
[2019-01-30] MEDS: HYDROCODONE/APAP 5/325MG 1 EACH TABLET GT SCH ×2 (08:12→21:12)
[2019-01-30] MEDS: TIZANIDINE HCL 4 MG TABLET GT SCH ×2 (08:12→21:13)
[2019-01-30] MEDS: PROSOURCE / PROSTAT (PYXIS) 30 ML UDC GT SCH ×3 (08:12→16:06)
[2019-01-30] MEDS: FERROUS SULFATE UDC 300 MG/5 ML UDC GT SCH (08:12)
[2019-01-30] MEDS: CHLORHEXIDINE GLUCONATE 15 ML UDC MM SCH ×2 (08:13→21:14)
[2019-01-30] MEDS: ZINC SULFATE 220 MG CAPSULE GT SCH (08:13)
[2019-01-30] MEDS: LINEZOLID 600 MG TABLET GT SCH ×2 (08:13→21:13)
[2019-01-30] MEDS: HYDROGEL DRESSING 90 GM TUBE TP SCH ×2 (09:00→21:13)
[2019-01-30] MEDS: CRANBERRY D MANNOSE TP SCH (09:00)
[2019-01-30] MEDS: THERAHONEY GEL 1.5 OZ TUBE TP SCH ×3 (09:00→21:13)
[2019-01-30] MEDS: CLOTRIMAZOLE 1% 15 GM TUBE TP SCH ×8 (09:00→21:13)
[2019-01-30] MEDS: Z GUARD REMEDY 4 OZ OINT TP SCH ×4 (09:00→21:13)
[2019-01-30] MEDS: HYDROGEN PEROXIDE 480 ML BOTTLE TP SCH ×2 (09:03→19:16)
[2019-01-30] MEDS: JEVITY 1.2 CAL 1,000 ML BOTTLE GT PRN (09:23)
[2019-01-30] MEDS ORDERED: IV NS 0.9% 250 ML IV ONE (18:03)
[2019-01-30] MEDS ORDERED: IOHEXOL-300 100 ML VIAL IV ONE (18:03)
[2019-01-30] MEDS ORDERED: CT SWABBABLE VALVE TRANS SET 1 EA INFUS.SET MC ONE (18:03)
--- NOTE | 2019-01-30 18:15 | NUR ---
Notified CONCAVER Gena Henley that patient still having fever with temperature ranging from 100-102 despite getting antibiotic. Urine culture, blood culture and wound culture result pending. New order given CT of abdomen and pelvis with contrast. Resident's father at bedside and made aware of CT scan order with contrast and signed consent. Left a message to resident's mother Vilma Beasley. Resident taken to radiology for CT scan accompanied by photographic technician, RT and IV TECHNICIAN in stable condition.
--- NOTE | 2019-01-30 18:35 | NUR ---
Accompanied for CT scan with RT at side and CT scan of abdomen performed. Patient returned from CT scan as ordered. Trach with vent and RT at side. No acute distress noted. Kept clean and comfortable.
--- NOTE | 2019-01-30 19:15 | NUR ---
Midline nurse was here earlier to assess patient's access but unable to find a good midline access. Suggested a PICC line insertion instead. Obtain and order from Gena for PICC line insertion and TELEMETRY RN MENDY Falcon and change IV ATB to Merrem. Telephone consent obtain from resident's father, Mr Beasley for PICC line insertion, witnessed by two licensed nurses and made him aware of change in ATB. Left a message to resident's mother of new order. Endorsed.
[2019-01-30 20:27] VITALS: BP 102/74
[2019-01-30] MEDS ORDERED: MEROPENEM 1 G VIAL IV ONE (20:40)
[2019-01-30] MEDS: MEROPENEM 1 G in IV NS 0.9% 100 ML IV SCH (21:00)
--- NOTE | 2019-01-30 21:00 | NUR ---
PICC line nurse inserted the PICC line on Right Femoral Vein 55cm PowerPICC Ft-Catheter with Sherlock 3CG Tip. dressing is clean and dry. no signs of bleeding as of now. PICC line nurse order stat chest xray to verify placement. will continue to monitor.
--- NOTE | 2019-01-30 21:01 | NUR ---
chest xray done. per PICC line nurse she will look at the xray result and call to say if the placement is correct.
[2019-01-30] MEDS: MULTIVITAMINS,THERAGRAN 1 UDTAB TABLET GT SCH (21:12)
[2019-01-30] MEDS: SENNOSIDES 8.6 MG TABLET GT SCH (21:14)
--- NOTE | 2019-01-30 21:15 | NUR ---
Merrem 1Gm IV given via Right hand peripheral IV. will continue to monitor
[2019-01-31] MEDS: ALBUTEROL FS 2.5 MG/3 ML VIAL.NEB IH SCH ×4 (00:26→19:36)
[2019-01-31] MEDS: IPRATROPIUM NEB FS 0.5 MG/2.5 ML AMPUL.NEB IH SCH ×4 (00:26→19:36)
[2019-01-31] MEDS: JEVITY 1.2 CAL 1,000 ML BOTTLE GT PRN ×2 (02:20→18:37)
--- NOTE | 2019-01-31 04:07 | NUR ---
RT NOTE PT ANIKA. VENT AND TX WELL. WILL CONTINUE WITH CURRENT PLAN OF CARE. Addendum: 01/31/19 at 0408 by ASAF CONLEY RT Amended: Links added.
[2019-01-31] MEDS: BACLOFEN (10 MG) 10 MG TABLET GT SCH ×3 (05:30→17:57)
[2019-01-31] MEDS: METOCLOPRAMIDE HCL 10 MG/10 ML UDC GT SCH ×3 (05:30→17:57)
[2019-01-31 07:53] VITALS: BP 123/82
[2019-01-31] MEDS: FERROUS SULFATE UDC 300 MG/5 ML UDC GT SCH (08:55)
[2019-01-31] MEDS: LEVETIRACETAM SOL (5 ML) 100 MG/ML UDC GT SCH ×2 (08:55→21:02)
[2019-01-31] MEDS: LACTOBACILLUS RHAMNOSUS GG 1 EACH CAP.SPRINK GT SCH ×2 (08:55→17:57)
[2019-01-31] MEDS: DOCUSATE SODIUM LIQ 100 MG/10 ML UDC GT SCH ×2 (08:55→17:57)
[2019-01-31] MEDS: PANTOPRAZOLE 40 MG/PACK PACK GT SCH ×2 (08:56→21:02)
[2019-01-31] MEDS: PROSOURCE / PROSTAT (PYXIS) 30 ML UDC GT SCH ×3 (08:56→17:57)
[2019-01-31] MEDS: ZINC SULFATE 220 MG CAPSULE GT SCH (08:56)
[2019-01-31] MEDS: LINEZOLID 600 MG TABLET GT SCH ×2 (08:56→21:03)
[2019-01-31] MEDS: CHLORHEXIDINE GLUCONATE 15 ML UDC MM SCH ×2 (08:56→21:03)
[2019-01-31] MEDS: METOPROLOL TARTRATE 25 MG TABLET GT SCH ×2 (08:56→21:02)
[2019-01-31] MEDS: HYDROCODONE/APAP 5/325MG 1 EACH TABLET GT SCH ×2 (08:56→21:02)
[2019-01-31] MEDS: TOPIRAMATE 25 MG TABLET GT SCH ×2 (08:56→21:02)
[2019-01-31] MEDS: TIZANIDINE HCL 4 MG TABLET GT SCH ×2 (08:56→21:03)
[2019-01-31] MEDS: Z GUARD REMEDY 4 OZ OINT TP SCH ×4 (09:00→21:03)
[2019-01-31] MEDS: CRANBERRY D MANNOSE TP SCH (09:00)
[2019-01-31] MEDS: THERAHONEY GEL 1.5 OZ TUBE TP SCH ×3 (09:00→21:03)
[2019-01-31] MEDS: HYDROGEL DRESSING 90 GM TUBE TP SCH ×2 (09:00→21:03)
[2019-01-31] MEDS: MEROPENEM 1 G in IV NS 0.9% 100 ML IV SCH ×2 (09:00→21:49)
[2019-01-31] MEDS: CLOTRIMAZOLE 1% 15 GM TUBE TP SCH ×8 (09:00→21:03)
[2019-01-31] MEDS: HYDROGEN PEROXIDE 480 ML BOTTLE TP SCH ×2 (09:00→19:36)
--- NOTE | 2019-01-31 10:58 | NUR ---
RT NOTE: RECEIVED TRACH PT ON MECH VENT ON NOTED SETTINGS PER MD ORDERS. TRACH IS PATENT AND SECURED. TRACH CARE DONE. PROPELLER ENGINEER DONE. Q6 BREATHING TX GIVEN WITH NO ADVERSE REACTION NOTED. SX DONE PRN. VENT PLUGGED INTO RED OUTLET. ALARMS ON AND AUDIBLE. AMBU BAG @ BEDSIDE. NO RESP DISTRESS AT THIS TIME. WILL CONT TO MONITOR PT.
[2019-01-31 20:00] VITALS: BP 128/76
[2019-01-31] MEDS: MULTIVITAMINS,THERAGRAN 1 UDTAB TABLET GT SCH (21:02)
[2019-01-31] MEDS: SENNOSIDES 8.6 MG TABLET GT SCH (21:03)
[2019-02-01] MEDS: IPRATROPIUM NEB FS 0.5 MG/2.5 ML AMPUL.NEB IH SCH ×4 (00:45→19:39)
[2019-02-01] MEDS: ALBUTEROL FS 2.5 MG/3 ML VIAL.NEB IH SCH ×4 (00:45→19:39)
[2019-02-01] MEDS: BACLOFEN (10 MG) 10 MG TABLET GT SCH ×5 (00:50→23:39)
[2019-02-01] MEDS: METOCLOPRAMIDE HCL 10 MG/10 ML UDC GT SCH ×5 (00:50→23:39)
--- NOTE | 2019-02-01 02:23 | NUR ---
RT NOTE RECEIVED TRACH PATIENT ON MECHANICAL VENT. WITH NOTED SETTINGS. TRACH IS PATENT AND SECURED. ALARMS ARE SET AND AUDIBLE. SPARE TRACH AND BVM IS AT BEDSIDE. VENT IS PLUGGED TO RED OUTLET. SUCTION SECRETIONS PRN. TRACH CARE DONE. Q6 TREATMENTS GIVEN WITH NO ADVERSE REACTIONS. PATIENT HAS EQUAL CHEST RISE WITH COARSE BILATERAL BREATH SOUNDS. NO SOB NOTED. Addendum: 02/01/19 at 0228 by BRENDA HERZOG RT Amended: Links added.
[2019-02-01 07:54] VITALS: BP 122/82
[2019-02-01] MEDS: LEVETIRACETAM SOL (5 ML) 100 MG/ML UDC GT SCH ×2 (08:46→21:00)
[2019-02-01] MEDS: FERROUS SULFATE UDC 300 MG/5 ML UDC GT SCH (08:46)
[2019-02-01] MEDS: LACTOBACILLUS RHAMNOSUS GG 1 EACH CAP.SPRINK GT SCH ×2 (08:46→17:21)
[2019-02-01] MEDS: DOCUSATE SODIUM LIQ 100 MG/10 ML UDC GT SCH ×2 (08:46→17:21)
[2019-02-01] MEDS: METOPROLOL TARTRATE 25 MG TABLET GT SCH ×2 (08:47→21:00)
[2019-02-01] MEDS: PANTOPRAZOLE 40 MG/PACK PACK GT SCH ×2 (08:47→21:00)
[2019-02-01] MEDS: CHLORHEXIDINE GLUCONATE 15 ML UDC MM SCH ×2 (08:47→21:00)
[2019-02-01] MEDS: ZINC SULFATE 220 MG CAPSULE GT SCH (08:47)
[2019-02-01] MEDS: LINEZOLID 600 MG TABLET GT SCH ×2 (08:47→21:00)
[2019-02-01] MEDS: PROSOURCE / PROSTAT (PYXIS) 30 ML UDC GT SCH ×3 (08:47→17:21)
[2019-02-01] MEDS: TOPIRAMATE 25 MG TABLET GT SCH ×2 (08:47→21:00)
[2019-02-01] MEDS: HYDROCODONE/APAP 5/325MG 1 EACH TABLET GT SCH ×2 (08:47→21:00)
[2019-02-01] MEDS: TIZANIDINE HCL 4 MG TABLET GT SCH ×2 (08:47→21:00)
[2019-02-01] MEDS: CRANBERRY D MANNOSE TP SCH (08:49)
[2019-02-01] MEDS: HYDROGEL DRESSING 90 GM TUBE TP SCH ×2 (09:00→21:00)
[2019-02-01] MEDS: Z GUARD REMEDY 4 OZ OINT TP SCH ×4 (09:00→21:00)
[2019-02-01] MEDS: CLOTRIMAZOLE 1% 15 GM TUBE TP SCH ×8 (09:00→21:00)
[2019-02-01] MEDS: HYDROGEN PEROXIDE 480 ML BOTTLE TP SCH ×2 (09:00→21:16)
[2019-02-01] MEDS: THERAHONEY GEL 1.5 OZ TUBE TP SCH ×3 (09:00→21:00)
[2019-02-01] MEDS: MEROPENEM 1 G in IV NS 0.9% 100 ML IV SCH ×2 (09:00→21:00)
--- NOTE | 2019-02-01 10:30 | NUR ---
Notified HAT TRIMMER Gena that pt had a temp of 100.1 F. Pt currently on Zyvox and Merrem. No new order.
--- NOTE | 2019-02-01 10:44 | NUR ---
RT NOTE RECEIVED PT MECHANICALLY VENTILATED VIA CUFFED TRACHEOSTOMY TUBE. CUFF INFLATED. TRACH TUBE MIDLINE AND SECURE. VENTILATOR SETTINGS PRESCRIBED. ALARMS SET PER PROTOCOL AND AUDIBLE. VENT PLUGGED IN TO RED OUTLET. AMBU BAG AT BED SIDE. NO DISTRESS NOTED. Addendum: 02/01/19 at 1044 by ELVIS GONZALEZ RT Amended: Links added.
--- NOTE | 2019-02-01 16:17 | NUR ---
ZENIA communicated to family that the Interdisciplinary Plan of Care Conference will be taking place this 02/05/19. Patients Father, Larry stated that the pt.'s mother, Vilma [phone] would be in attendance. Noted.
[2019-02-01 19:45] VITALS: BP 133/87
[2019-02-01] MEDS: MULTIVITAMINS,THERAGRAN 1 UDTAB TABLET GT SCH (21:00)
[2019-02-01] MEDS: SENNOSIDES 8.6 MG TABLET GT SCH (22:03)
[2019-02-02] MEDS: ALBUTEROL FS 2.5 MG/3 ML VIAL.NEB IH SCH ×4 (00:58→20:23)
[2019-02-02] MEDS: IPRATROPIUM NEB FS 0.5 MG/2.5 ML AMPUL.NEB IH SCH ×4 (00:58→20:23)
[2019-02-02] MEDS: BACLOFEN (10 MG) 10 MG TABLET GT SCH ×4 (06:04→23:14)
[2019-02-02] MEDS: METOCLOPRAMIDE HCL 10 MG/10 ML UDC GT SCH ×4 (06:04→23:14)
[2019-02-02 07:41] LABS: BASOPHILS % (AUTO) 0.3 % (0.0-2.0); EOSINOPHILS % (AUTO) 2.3 % (0.0-6.0); HEMATOCRIT 37 % (39-51); HEMOGLOBIN 12.4 g/dL (13.5-17.5); LYMPHOCYTES # (AUTO) 1.2 /CMM (0.8-4.8); LYMPHOCYTES % (AUTO) 13.3 % (20.0-44.0); MEAN CORPUSCULAR HGB CONC 33 g/dl (31.0-36.0); MEAN CORPUSCULAR VOLUME 93 fL (80-96); MONOCYTES # (AUTO) 0.8 /CMM (0.1-1.30); MONOCYTES % (AUTO) 9.4 % (2.0-12.0); NEUTROPHILS # (AUTO) 6.7 /CMM (1.8-8.9); NEUTROPHILS % (AUTO) 74.7 % (43.0-81.0); PLATELET COUNT (AUTO) 249 /CMM (150-450)
[2019-02-02 07:51] VITALS: BP 129/75
[2019-02-02] MEDS: FERROUS SULFATE UDC 300 MG/5 ML UDC GT SCH (08:39)
[2019-02-02] MEDS: DOCUSATE SODIUM LIQ 100 MG/10 ML UDC GT SCH ×2 (08:39→17:46)
[2019-02-02] MEDS: LEVETIRACETAM SOL (5 ML) 100 MG/ML UDC GT SCH ×2 (08:39→21:14)
[2019-02-02] MEDS: LACTOBACILLUS RHAMNOSUS GG 1 EACH CAP.SPRINK GT SCH ×2 (08:39→17:46)
[2019-02-02] MEDS: LINEZOLID 600 MG TABLET GT SCH ×2 (08:40→21:15)
[2019-02-02] MEDS: PROSOURCE / PROSTAT (PYXIS) 30 ML UDC GT SCH ×3 (08:40→17:46)
[2019-02-02] MEDS: ZINC SULFATE 220 MG CAPSULE GT SCH (08:40)
[2019-02-02] MEDS: PANTOPRAZOLE 40 MG/PACK PACK GT SCH ×2 (08:40→21:14)
[2019-02-02] MEDS: HYDROCODONE/APAP 5/325MG 1 EACH TABLET GT SCH ×2 (08:40→21:14)
[2019-02-02] MEDS: TIZANIDINE HCL 4 MG TABLET GT SCH ×2 (08:40→21:15)
[2019-02-02] MEDS: CHLORHEXIDINE GLUCONATE 15 ML UDC MM SCH ×2 (08:40→21:15)
[2019-02-02] MEDS: CRANBERRY D MANNOSE TP SCH (08:40)
[2019-02-02] MEDS: METOPROLOL TARTRATE 25 MG TABLET GT SCH ×2 (08:40→21:14)
[2019-02-02] MEDS: TOPIRAMATE 25 MG TABLET GT SCH ×2 (08:40→21:15)
[2019-02-02] MEDS: JEVITY 1.2 CAL 1,000 ML BOTTLE GT PRN (08:55)
[2019-02-02] MEDS: MEROPENEM 1 G in IV NS 0.9% 100 ML IV SCH ×2 (09:00→20:26)
[2019-02-02] MEDS: Z GUARD REMEDY 4 OZ OINT TP SCH ×4 (09:00→21:15)
[2019-02-02] MEDS: CLOTRIMAZOLE 1% 15 GM TUBE TP SCH ×8 (09:00→21:15)
[2019-02-02] MEDS: THERAHONEY GEL 1.5 OZ TUBE TP SCH ×3 (09:00→21:15)
[2019-02-02] MEDS: HYDROGEL DRESSING 90 GM TUBE TP SCH ×2 (09:00→21:15)
[2019-02-02] MEDS: HYDROGEN PEROXIDE 480 ML BOTTLE TP SCH ×2 (09:00→20:23)
[2019-02-02 20:09] VITALS: BP 136/93
[2019-02-02] MEDS: MULTIVITAMINS,THERAGRAN 1 UDTAB TABLET GT SCH (21:14)
[2019-02-02] MEDS: SENNOSIDES 8.6 MG TABLET GT SCH (21:15)
[2019-02-03] MEDS: ALBUTEROL FS 2.5 MG/3 ML VIAL.NEB IH SCH ×4 (01:30→20:01)
[2019-02-03] MEDS: IPRATROPIUM NEB FS 0.5 MG/2.5 ML AMPUL.NEB IH SCH ×4 (01:30→20:01)
[2019-02-03] MEDS: METOCLOPRAMIDE HCL 10 MG/10 ML UDC GT SCH ×4 (05:43→23:49)
[2019-02-03] MEDS: BACLOFEN (10 MG) 10 MG TABLET GT SCH ×4 (05:43→23:49)
[2019-02-03 07:57] VITALS: BP 147/85
[2019-02-03] MEDS: HYDROGEN PEROXIDE 480 ML BOTTLE TP SCH ×2 (08:31→21:00)
[2019-02-03 09:00] VITALS: BP 126/86
[2019-02-03] MEDS: PANTOPRAZOLE 40 MG/PACK PACK GT SCH ×2 (09:00→20:16)
[2019-02-03] MEDS: LINEZOLID 600 MG TABLET GT SCH ×2 (09:00→20:15)
[2019-02-03] MEDS: FERROUS SULFATE UDC 300 MG/5 ML UDC GT SCH (09:00)
[2019-02-03] MEDS: LEVETIRACETAM SOL (5 ML) 100 MG/ML UDC GT SCH ×2 (09:00→20:13)
[2019-02-03] MEDS: CRANBERRY D MANNOSE TP SCH (09:00)
[2019-02-03] MEDS: METOPROLOL TARTRATE 25 MG TABLET GT SCH ×2 (09:00→20:16)
[2019-02-03] MEDS: TOPIRAMATE 25 MG TABLET GT SCH ×2 (09:00→20:14)
[2019-02-03] MEDS: ZINC SULFATE 220 MG CAPSULE GT SCH (09:00)
[2019-02-03] MEDS: DOCUSATE SODIUM LIQ 100 MG/10 ML UDC GT SCH ×2 (09:00→16:37)
[2019-02-03] MEDS: PROSOURCE / PROSTAT (PYXIS) 30 ML UDC GT SCH ×3 (09:00→16:37)
[2019-02-03] MEDS: HYDROCODONE/APAP 5/325MG 1 EACH TABLET GT SCH ×2 (09:00→20:15)
[2019-02-03] MEDS: TIZANIDINE HCL 4 MG TABLET GT SCH ×2 (09:00→20:14)
[2019-02-03] MEDS: CHLORHEXIDINE GLUCONATE 15 ML UDC MM SCH ×2 (09:00→21:11)
[2019-02-03] MEDS: LACTOBACILLUS RHAMNOSUS GG 1 EACH CAP.SPRINK GT SCH ×2 (09:00→16:37)
[2019-02-03] MEDS: MEROPENEM 1 G in IV NS 0.9% 100 ML IV SCH ×2 (09:37→21:00)
[2019-02-03] MEDS: Z GUARD REMEDY 4 OZ OINT TP SCH ×4 (10:00→21:11)
[2019-02-03] MEDS: THERAHONEY GEL 1.5 OZ TUBE TP SCH ×3 (10:00→21:11)
[2019-02-03] MEDS: HYDROGEL DRESSING 90 GM TUBE TP SCH ×2 (10:00→21:11)
[2019-02-03] MEDS: CLOTRIMAZOLE 1% 15 GM TUBE TP SCH ×8 (10:00→21:11)
[2019-02-03 12:00] VITALS: BP 131/84
--- NOTE | 2019-02-03 18:08 | NUR ---
DENNIS Avery, made aware that patient's temperature is on and off. In the morning patient's temp 100.1 and rechecked around 12 noon 98.0, She said that she would like to continue his antibiotic and to follow-up final sacral wound culture result at [facility]. Called [facility] lab , no one picked up the phone. Endorsed to follow-up in AM. Updatewd patient's mother regarding patient's condition when she called earlier today.
[2019-02-03 18:48] VITALS: BP 132/76
[2019-02-03] MEDS: MULTIVITAMINS,THERAGRAN 1 UDTAB TABLET GT SCH (20:14)
[2019-02-03] MEDS: SENNOSIDES 8.6 MG TABLET GT SCH (21:11)
--- NOTE | 2019-02-04 00:39 | NUR ---
Pt rec'd trached on [facility] vent on AC mode. No resp distress or sob noted. Trach is patent and secured. Sx'd for thick mod amt of pale yellow secretions. Alarms are set and audible. Vent plugged into red outlet. Ambu bag bedside. Will continue to monitor. Addendum: 02/04/19 at 0040 by YOVANA DE LA GARZA RT Amended: Links added.
[2019-02-04] MEDS: ALBUTEROL FS 2.5 MG/3 ML VIAL.NEB IH SCH ×4 (01:56→20:05)
[2019-02-04] MEDS: IPRATROPIUM NEB FS 0.5 MG/2.5 ML AMPUL.NEB IH SCH ×4 (01:56→20:05)
[2019-02-04] MEDS: METOCLOPRAMIDE HCL 10 MG/10 ML UDC GT SCH ×4 (05:15→23:15)
[2019-02-04] MEDS: BACLOFEN (10 MG) 10 MG TABLET GT SCH ×4 (05:15→23:15)
[2019-02-04 07:26] VITALS: BP 136/89
[2019-02-04] MEDS: HYDROGEN PEROXIDE 480 ML BOTTLE TP SCH ×2 (08:24→20:44)
[2019-02-04] MEDS: DOCUSATE SODIUM LIQ 100 MG/10 ML UDC GT SCH ×2 (08:30→17:23)
[2019-02-04] MEDS: FERROUS SULFATE UDC 300 MG/5 ML UDC GT SCH (08:30)
[2019-02-04] MEDS: LACTOBACILLUS RHAMNOSUS GG 1 EACH CAP.SPRINK GT SCH ×2 (08:30→17:23)
[2019-02-04] MEDS: LEVETIRACETAM SOL (5 ML) 100 MG/ML UDC GT SCH ×2 (08:30→20:41)
[2019-02-04] MEDS: PROSOURCE / PROSTAT (PYXIS) 30 ML UDC GT SCH ×3 (08:31→17:23)
[2019-02-04] MEDS: CHLORHEXIDINE GLUCONATE 15 ML UDC MM SCH ×2 (08:31→20:43)
[2019-02-04] MEDS: METOPROLOL TARTRATE 25 MG TABLET GT SCH ×2 (08:31→20:42)
[2019-02-04] MEDS: ZINC SULFATE 220 MG CAPSULE GT SCH (08:31)
[2019-02-04] MEDS: CRANBERRY D MANNOSE TP SCH (08:31)
[2019-02-04] MEDS: PANTOPRAZOLE 40 MG/PACK PACK GT SCH ×2 (08:31→20:43)
[2019-02-04] MEDS: LINEZOLID 600 MG TABLET GT SCH ×2 (08:31→20:43)
[2019-02-04] MEDS: TIZANIDINE HCL 4 MG TABLET GT SCH ×2 (08:36→20:43)
[2019-02-04] MEDS: HYDROCODONE/APAP 5/325MG 1 EACH TABLET GT SCH ×2 (08:36→20:43)
[2019-02-04] MEDS: TOPIRAMATE 25 MG TABLET GT SCH ×2 (08:36→20:43)
--- NOTE | 2019-02-04 08:45 | NUR ---
Patient has a temp of 100.3, cooling measure initiated, turned and repositioned for comfort. Patient still on IV ATB therapy with no ASE noted. Will continue to monitor.
[2019-02-04] MEDS: MEROPENEM 1 G in IV NS 0.9% 100 ML IV SCH ×2 (09:00→21:00)
[2019-02-04] MEDS: Z GUARD REMEDY 4 OZ OINT TP SCH ×4 (09:15→20:44)
[2019-02-04] MEDS: THERAHONEY GEL 1.5 OZ TUBE TP SCH ×3 (09:15→20:44)
[2019-02-04] MEDS: HYDROGEL DRESSING 90 GM TUBE TP SCH ×2 (09:15→20:43)
[2019-02-04] MEDS: CLOTRIMAZOLE 1% 15 GM TUBE TP SCH ×8 (09:15→20:44)
--- NOTE | 2019-02-04 11:52 | NUR ---
Informed BALL POINTS INSPECTOR Gena that pt has a temp of 100.3 F. She ordered to continue Merrem for 2 more days. Pt has not received flu vaccine yet because pt is still on IV antibiotics and having low grade fevers.
[2019-02-04] MEDS: JEVITY 1.2 CAL 1,000 ML BOTTLE GT PRN (17:43)
--- NOTE | 2019-02-04 19:52 | NUR ---
Seen by TRANSPORT OPERATIONS INSPECTOR Asia Jernigan. Informed her that pt has not received flu vaccine yet since pt still has low grade fevers and on antibiotics.
--- NOTE | 2019-02-04 20:06 | NUR ---
RT NOTE PATIENT RECEIVED TRACH'D IN STABLE CONDITION. PATIENT TOLERATING CURRENT ORDERED VENT SETTINGS. NO SIGNS OF RESPIRATORY DISTRESS NOTED. TRACH IS PATENT AND SECURE. ALARMS ARE SET AND AUDIBLE. VENT IS PLUGGED INTO RED OUTLET. EMERGENCY EQUIPMENT IS AT PATIENT BEDSIDE. WILL CONTINUE TO MONITOR. Addendum: 02/04/19 at 2051 by PEDRO LEIGH RT Amended: Links added.
[2019-02-04] MEDS: MULTIVITAMINS,THERAGRAN 1 UDTAB TABLET GT SCH (20:43)
[2019-02-04] MEDS: SENNOSIDES 8.6 MG TABLET GT SCH (21:04)
[2019-02-04 21:09] VITALS: BP 109/74
[2019-02-05] MEDS: ALBUTEROL FS 2.5 MG/3 ML VIAL.NEB IH SCH ×4 (02:04→19:42)
[2019-02-05] MEDS: IPRATROPIUM NEB FS 0.5 MG/2.5 ML AMPUL.NEB IH SCH ×4 (02:04→19:42)
[2019-02-05] MEDS: JEVITY 1.2 CAL 1,000 ML BOTTLE GT PRN ×2 (05:38→23:10)
[2019-02-05] MEDS: METOCLOPRAMIDE HCL 10 MG/10 ML UDC GT SCH ×4 (05:38→23:10)
[2019-02-05] MEDS: BACLOFEN (10 MG) 10 MG TABLET GT SCH ×4 (05:38→23:10)
[2019-02-05] MEDS: HYDROGEN PEROXIDE 480 ML BOTTLE TP SCH ×2 (07:50→21:07)
[2019-02-05 07:56] VITALS: BP 109/87
[2019-02-05] MEDS: CLOTRIMAZOLE 1% 15 GM TUBE TP SCH ×9 (09:00→21:07)
[2019-02-05] MEDS: HYDROGEL DRESSING 90 GM TUBE TP SCH ×2 (09:00→21:07)
[2019-02-05] MEDS: CRANBERRY D MANNOSE TP SCH (09:00)
[2019-02-05] MEDS: MEROPENEM 1 G in IV NS 0.9% 100 ML IV SCH ×2 (09:22→21:05)
[2019-02-05] MEDS: DOCUSATE SODIUM LIQ 100 MG/10 ML UDC GT SCH ×2 (09:29→17:22)
[2019-02-05] MEDS: FERROUS SULFATE UDC 300 MG/5 ML UDC GT SCH (09:29)
[2019-02-05] MEDS: PROSOURCE / PROSTAT (PYXIS) 30 ML UDC GT SCH ×3 (09:30→17:22)
[2019-02-05] MEDS: LACTOBACILLUS RHAMNOSUS GG 1 EACH CAP.SPRINK GT SCH ×2 (09:31→17:22)
[2019-02-05] MEDS: ZINC SULFATE 220 MG CAPSULE GT SCH (09:31)
[2019-02-05] MEDS: LEVETIRACETAM SOL (5 ML) 100 MG/ML UDC GT SCH ×2 (09:31→21:06)
[2019-02-05] MEDS: PANTOPRAZOLE 40 MG/PACK PACK GT SCH (09:32)
[2019-02-05] MEDS: LINEZOLID 600 MG TABLET GT SCH ×2 (09:32→21:07)
[2019-02-05] MEDS: TOPIRAMATE 25 MG TABLET GT SCH ×2 (09:32→21:07)
[2019-02-05] MEDS: CHLORHEXIDINE GLUCONATE 15 ML UDC MM SCH ×2 (09:32→21:07)
[2019-02-05] MEDS: TIZANIDINE HCL 4 MG TABLET GT SCH ×2 (09:32→21:07)
[2019-02-05] MEDS: HYDROCODONE/APAP 5/325MG 1 EACH TABLET GT SCH ×2 (09:36→21:07)
[2019-02-05] MEDS: METOPROLOL TARTRATE 25 MG TABLET GT SCH ×2 (09:37→21:07)
[2019-02-05] MEDS: THERAHONEY GEL 1.5 OZ TUBE TP SCH ×3 (10:00→21:08)
[2019-02-05] MEDS: Z GUARD REMEDY 4 OZ OINT TP SCH ×4 (10:00→21:07)
--- NOTE | 2019-02-05 14:30 | NUR ---
Resident's mother mentioned during IDT meeting that patient seems like he is in pain when he urinating, bladder scan done but does not indicate if patient is retaining urine. Informed the team that on two occasion, when obtaining urine specimen, unable to get specimen with catheter due to resistance, instead used condom catheter to obtain specimen. Urology consult ordered by Dr. Warren. Dr. Beatty notified and will see the patient this weekend. Resident's mother informed.
--- NOTE | 2019-02-05 16:00 | NUR ---
INTERDISCIPLINARY PLAN OF CARE CONFERENCE took place today. The patients responsible republican/ Vilma Beasley [phone] Warren and Interdisciplinary team discussed the plan of care in detail. Charge nurse informed pt.'s mother that the coconut oil and cranberry supplements she is providing are being used for pt.'s care. The IDT addressed all of the familys questions. Current orders as well as treatments and medications were reviewed. Please see other disciplines IDT notes for further details.
--- NOTE | 2019-02-05 16:47 | NUR ---
RT NOTE: RECEIVED PT ON ORDERED NOTED VENT SETTINGS. NO RESPIRATORY DISTRESS NOTED. TRACH CHECKED SECURE AND PATENT. SXD AND LAVAGED PT Q ROUND AND NEEDED. TXS GIVEN ORDERED WITH NO ADVERSE REACTIONS NOTED. TRACH CARE DONE WITH RN FOR WOUND CARE. SPARE TRACH AND AMBU BAG @ BEDSIDE. VENT PLUGGED INTO RED OUTLET.
[2019-02-05 19:54] VITALS: BP 117/76
[2019-02-05] MEDS: MULTIVITAMINS,THERAGRAN 1 UDTAB TABLET GT SCH (21:07)
[2019-02-05] MEDS: SENNOSIDES 8.6 MG TABLET GT SCH (21:08)
[2019-02-06] MEDS: IPRATROPIUM NEB FS 0.5 MG/2.5 ML AMPUL.NEB IH SCH ×4 (01:52→19:22)
[2019-02-06] MEDS: ALBUTEROL FS 2.5 MG/3 ML VIAL.NEB IH SCH ×4 (01:52→19:22)
[2019-02-06] MEDS: METOCLOPRAMIDE HCL 10 MG/10 ML UDC GT SCH ×4 (05:20→23:07)
[2019-02-06] MEDS: OMEPRAZOLE 20 MG CAPSULE.DR GT SCH (05:20)
[2019-02-06] MEDS: BACLOFEN (10 MG) 10 MG TABLET GT SCH ×4 (05:20→23:07)
--- NOTE | 2019-02-06 05:21 | NUR ---
RT Patient remained on continuous vent support on noted vent settings.Patient stable throughout the shift. Trach is patent and secured.Will continue to monitor. Addendum: 02/06/19 at 0521 by TERRY GONZALEZ RT Amended: Links added.
[2019-02-06 07:37] VITALS: BP 138/75
[2019-02-06] MEDS: HYDROGEN PEROXIDE 480 ML BOTTLE TP SCH ×2 (07:53→20:05)
[2019-02-06] MEDS: MEROPENEM 1 G in IV NS 0.9% 100 ML IV SCH ×2 (08:51→21:00)
[2019-02-06] MEDS: HYDROGEL DRESSING 90 GM TUBE TP SCH ×2 (09:00→20:05)
[2019-02-06] MEDS: Z GUARD REMEDY 4 OZ OINT TP SCH ×4 (09:00→20:05)
[2019-02-06] MEDS: CRANBERRY D MANNOSE TP SCH (09:00)
[2019-02-06] MEDS: CLOTRIMAZOLE 1% 15 GM TUBE TP SCH ×10 (09:00→20:05)
[2019-02-06] MEDS: THERAHONEY GEL 1.5 OZ TUBE TP SCH ×3 (09:00→20:05)
[2019-02-06] MEDS: DOCUSATE SODIUM LIQ 100 MG/10 ML UDC GT SCH ×2 (09:03→17:07)
[2019-02-06] MEDS: LEVETIRACETAM SOL (5 ML) 100 MG/ML UDC GT SCH ×2 (09:04→20:04)
[2019-02-06] MEDS: FERROUS SULFATE UDC 300 MG/5 ML UDC GT SCH (09:04)
[2019-02-06] MEDS: METOPROLOL TARTRATE 25 MG TABLET GT SCH ×2 (09:04→20:04)
[2019-02-06] MEDS: LACTOBACILLUS RHAMNOSUS GG 1 EACH CAP.SPRINK GT SCH ×2 (09:10→17:22)
[2019-02-06] MEDS: HYDROCODONE/APAP 5/325MG 1 EACH TABLET GT SCH ×2 (09:11→20:04)
[2019-02-06] MEDS: TOPIRAMATE 25 MG TABLET GT SCH ×2 (09:13→20:05)
[2019-02-06] MEDS: PROSOURCE / PROSTAT (PYXIS) 30 ML UDC GT SCH ×3 (09:13→17:07)
[2019-02-06] MEDS: TIZANIDINE HCL 4 MG TABLET GT SCH ×2 (09:14→20:05)
[2019-02-06] MEDS: LINEZOLID 600 MG TABLET GT SCH ×2 (09:14→20:05)
[2019-02-06] MEDS: CHLORHEXIDINE GLUCONATE 15 ML UDC MM SCH ×2 (09:14→20:05)
[2019-02-06] MEDS: ZINC SULFATE 220 MG CAPSULE GT SCH (09:14)
--- NOTE | 2019-02-06 14:00 | NUR ---
Reported final sacral wound culture result showing ESBL Klebsiella Pneumoniae and ESBL E. Coli and Morganella Morganii to DENNIS Henley with new order to continue Merrem for another 6 weeks and Zyvox for total of 6 weeks. Order carried out. Resident's father and mother visited and informed of new order. Contact isolation observed.
[2019-02-06] MEDS: JEVITY 1.2 CAL 1,000 ML BOTTLE GT PRN (17:40)
[2019-02-06 19:46] VITALS: BP 110/74
[2019-02-06] MEDS: MULTIVITAMINS,THERAGRAN 1 UDTAB TABLET GT SCH (20:05)
[2019-02-06] MEDS: SENNOSIDES 8.6 MG TABLET GT SCH (21:09)
[2019-02-07] MEDS: IPRATROPIUM NEB FS 0.5 MG/2.5 ML AMPUL.NEB IH SCH ×4 (01:26→19:48)
[2019-02-07] MEDS: ALBUTEROL FS 2.5 MG/3 ML VIAL.NEB IH SCH ×4 (01:30→19:48)
--- NOTE | 2019-02-07 04:04 | NUR ---
Pt receive stable on MV, settings are AC 12,500,+5 at 40% FiO2. Alarms are on and audible, spare trach and ambu bag is at bedside. Vent is plug to red outlet will continue to monitor. Addendum: 02/07/19 at 0405 by AMANDA GALLO RT Amended: Links added.
[2019-02-07] MEDS: METOCLOPRAMIDE HCL 10 MG/10 ML UDC GT SCH ×4 (05:22→23:14)
[2019-02-07] MEDS: OMEPRAZOLE 20 MG CAPSULE.DR GT SCH (05:22)
[2019-02-07] MEDS: BACLOFEN (10 MG) 10 MG TABLET GT SCH ×4 (05:22→23:14)
[2019-02-07 07:17] LABS: BASOPHILS % (AUTO) 0.6 % (0.0-2.0); EOSINOPHILS % (AUTO) 2.7 % (0.0-6.0); HEMATOCRIT 35 % (39-51); HEMOGLOBIN 11.7 g/dL (13.5-17.5); LYMPHOCYTES # (AUTO) 1.1 /CMM (0.8-4.8); LYMPHOCYTES % (AUTO) 17.8 % (20.0-44.0); MEAN CORPUSCULAR HGB CONC 33 g/dl (31.0-36.0); MEAN CORPUSCULAR VOLUME 94 fL (80-96); MONOCYTES # (AUTO) 0.6 /CMM (0.1-1.30); NEUTROPHILS # (AUTO) 4.4 /CMM (1.8-8.9); NEUTROPHILS % (AUTO) 68.9 % (43.0-81.0); PLATELET COUNT (AUTO) 203 /CMM (150-450); RED BLOOD CELL COUNT(AUTO) 3.73 MIL/uL (4.5-6.0); WHITE BLOOD COUNT (AUTO) 6.4 K/uL (4.3-11.0)
[2019-02-07 07:33] VITALS: BP 119/77
[2019-02-07] MEDS: MEROPENEM 1 G in IV NS 0.9% 100 ML IV SCH ×3 (08:52→21:00)
[2019-02-07] MEDS: Z GUARD REMEDY 4 OZ OINT TP SCH ×4 (09:00→21:25)
[2019-02-07] MEDS: HYDROGEN PEROXIDE 480 ML BOTTLE TP SCH ×2 (09:00→21:25)
[2019-02-07] MEDS: HYDROGEL DRESSING 90 GM TUBE TP SCH ×2 (09:00→21:25)
[2019-02-07] MEDS: THERAHONEY GEL 1.5 OZ TUBE TP SCH ×3 (09:00→21:25)
[2019-02-07] MEDS: CLOTRIMAZOLE 1% 15 GM TUBE TP SCH ×10 (09:00→21:25)
[2019-02-07] MEDS: LACTOBACILLUS RHAMNOSUS GG 1 EACH CAP.SPRINK GT SCH ×2 (09:14→17:07)
[2019-02-07] MEDS: LEVETIRACETAM SOL (5 ML) 100 MG/ML UDC GT SCH ×2 (09:14→21:24)
[2019-02-07] MEDS: DOCUSATE SODIUM LIQ 100 MG/10 ML UDC GT SCH ×2 (09:14→17:07)
[2019-02-07] MEDS: FERROUS SULFATE UDC 300 MG/5 ML UDC GT SCH (09:14)
[2019-02-07] MEDS: METOPROLOL TARTRATE 25 MG TABLET GT SCH ×2 (09:15→21:25)
[2019-02-07] MEDS: PROSOURCE / PROSTAT (PYXIS) 30 ML UDC GT SCH ×3 (09:15→17:07)
[2019-02-07] MEDS: HYDROCODONE/APAP 5/325MG 1 EACH TABLET GT SCH ×2 (09:15→21:25)
[2019-02-07] MEDS: TIZANIDINE HCL 4 MG TABLET GT SCH ×2 (09:16→21:25)
[2019-02-07] MEDS: TOPIRAMATE 25 MG TABLET GT SCH ×2 (09:16→21:25)
[2019-02-07] MEDS: ZINC SULFATE 220 MG CAPSULE GT SCH (09:17)
[2019-02-07] MEDS: LINEZOLID 600 MG TABLET GT SCH ×2 (09:17→21:25)
[2019-02-07] MEDS: CHLORHEXIDINE GLUCONATE 15 ML UDC MM SCH ×2 (09:17→21:25)
[2019-02-07 09:18] LABS: CALCIUM, SERUM 8.7 mg/dL (8.5-10.1); CREATININE 0.7 mg/dL (0.6-1.3); POTASSIUM 4.1 mmol/L (3.5-5.1)
[2019-02-07] MEDS: CRANBERRY D MANNOSE TP SCH (09:18)
--- NOTE | 2019-02-07 11:22 | NUR ---
Per pharmacy recommendation d/c previous order merrem 1 gram iv every 12hrs IV, new order merrem 1 gram every 8hours, order carried out, and responsible green party made aware.
--- NOTE | 2019-02-07 13:00 | NUR ---
Called Dr. Ybarra to relate lab results, Dr. Ybarra not sales administration manager, was instructed to call [facility] at [phone], left a message with the exchange, will inform the MD sales administration manager to call me back.
[2019-02-07 19:51] VITALS: BP 111/73
[2019-02-07] MEDS: MULTIVITAMINS,THERAGRAN 1 UDTAB TABLET GT SCH (21:25)
[2019-02-07] MEDS: SENNOSIDES 8.6 MG TABLET GT SCH (21:26)
[2019-02-07] MEDS: JEVITY 1.2 CAL 1,000 ML BOTTLE GT PRN (23:38)
[2019-02-08] MEDS: ALBUTEROL FS 2.5 MG/3 ML VIAL.NEB IH SCH ×4 (01:36→20:39)
[2019-02-08] MEDS: IPRATROPIUM NEB FS 0.5 MG/2.5 ML AMPUL.NEB IH SCH ×4 (01:36→20:39)
[2019-02-08] MEDS: MEROPENEM 1 G in IV NS 0.9% 100 ML IV SCH ×3 (05:00→21:21)
--- NOTE | 2019-02-08 05:30 | NUR ---
RT Patient was received on continuous vent support on noted vent settings . Trach is patent and secured. Patient stable throughout the shift. Will continue to monitor. Addendum: 02/08/19 at 0530 by TERRY GONZALEZ RT Amended: Links added.
[2019-02-08] MEDS: BACLOFEN (10 MG) 10 MG TABLET GT SCH ×4 (06:13→23:33)
[2019-02-08] MEDS: METOCLOPRAMIDE HCL 10 MG/10 ML UDC GT SCH ×4 (06:13→23:33)
[2019-02-08] MEDS: OMEPRAZOLE 20 MG CAPSULE.DR GT SCH (06:13)
[2019-02-08] MEDS: PROSOURCE / PROSTAT (PYXIS) 30 ML UDC GT SCH ×3 (09:00→17:00)
[2019-02-08] MEDS: DOCUSATE SODIUM LIQ 100 MG/10 ML UDC GT SCH ×2 (09:00→17:00)
[2019-02-08] MEDS: TOPIRAMATE 25 MG TABLET GT SCH ×2 (09:00→20:57)
[2019-02-08] MEDS: CHLORHEXIDINE GLUCONATE 15 ML UDC MM SCH ×2 (09:00→20:58)
[2019-02-08] MEDS: CRANBERRY D MANNOSE TP SCH (09:00)
[2019-02-08] MEDS: TIZANIDINE HCL 4 MG TABLET GT SCH ×2 (09:00→20:57)
[2019-02-08] MEDS: ZINC SULFATE 220 MG CAPSULE GT SCH (09:00)
[2019-02-08] MEDS: FERROUS SULFATE UDC 300 MG/5 ML UDC GT SCH (09:00)
[2019-02-08] MEDS: LACTOBACILLUS RHAMNOSUS GG 1 EACH CAP.SPRINK GT SCH ×2 (09:00→17:00)
[2019-02-08] MEDS: HYDROGEN PEROXIDE 480 ML BOTTLE TP SCH ×2 (09:00→20:39)
[2019-02-08] MEDS: LEVETIRACETAM SOL (5 ML) 100 MG/ML UDC GT SCH ×2 (09:00→20:55)
[2019-02-08] MEDS: LINEZOLID 600 MG TABLET GT SCH ×2 (09:00→20:58)
[2019-02-08] MEDS: METOPROLOL TARTRATE 25 MG TABLET GT SCH ×2 (09:00→20:57)
[2019-02-08] MEDS: HYDROCODONE/APAP 5/325MG 1 EACH TABLET GT SCH ×2 (10:00→20:57)
[2019-02-08] MEDS: THERAHONEY GEL 1.5 OZ TUBE TP SCH ×3 (10:30→21:35)
[2019-02-08] MEDS: HYDROGEL DRESSING 90 GM TUBE TP SCH ×2 (10:30→21:35)
[2019-02-08] MEDS: Z GUARD REMEDY 4 OZ OINT TP SCH ×4 (10:30→21:35)
[2019-02-08] MEDS: CLOTRIMAZOLE 1% 15 GM TUBE TP SCH ×9 (10:30→21:35)
[2019-02-08 11:06] VITALS: BP 141/70
--- NOTE | 2019-02-08 14:44 | NUR ---
RT NOTE PT REMAINS MECHANICALLY VENTILATED VIA CUFFED TRACHEOSTOMY TUBE. CUFF INFLATED. TRACH TUBE MIDLINE AND SECURE. VENTILATOR SETTINGS PRESCRIBED. ALARMS SET PER PROTOCOL AND AUDIBLE. VENT PLUGGED IN TO RED OUTLET. AMBU BAG AT BED SIDE. NO DISTRESS NOTED. Addendum: 02/08/19 at 1444 by ELVIS GONZALEZ RT Amended: Links added.
[2019-02-08] MEDS: JEVITY 1.2 CAL 1,000 ML BOTTLE GT PRN (18:14)
[2019-02-08 20:02] VITALS: BP 123/80
[2019-02-08] MEDS: MULTIVITAMINS,THERAGRAN 1 UDTAB TABLET GT SCH (20:57)
[2019-02-08] MEDS: SENNOSIDES 8.6 MG TABLET GT SCH (21:04)
[2019-02-09] MEDS: IPRATROPIUM NEB FS 0.5 MG/2.5 ML AMPUL.NEB IH SCH ×4 (02:05→20:01)
[2019-02-09] MEDS: ALBUTEROL FS 2.5 MG/3 ML VIAL.NEB IH SCH ×4 (02:05→20:01)
--- NOTE | 2019-02-09 03:51 | NUR ---
RT NOTE Pt rec'd trached on [facility] vent on AC mode. No resp distress or sob noted. Trach is patent and secured. Sx'd for thick mod amt of pale yellow secretions. Vent plugged into red outlet. Alarms are set and audible. Ambu bag bedside. Will continue to monitor. Addendum: 02/09/19 at 0351 by YOVANA DE LA GARZA RT Amended: Links added.
[2019-02-09] MEDS: OMEPRAZOLE 20 MG CAPSULE.DR GT SCH (05:35)
[2019-02-09] MEDS: BACLOFEN (10 MG) 10 MG TABLET GT SCH ×4 (05:35→23:24)
[2019-02-09] MEDS: METOCLOPRAMIDE HCL 10 MG/10 ML UDC GT SCH ×4 (05:35→23:24)
[2019-02-09] MEDS: MEROPENEM 1 G in IV NS 0.9% 100 ML IV SCH ×3 (05:59→21:00)
[2019-02-09] MEDS: JEVITY 1.2 CAL 1,000 ML BOTTLE GT PRN ×2 (06:47→23:08)
[2019-02-09 08:19] VITALS: BP 130/86
[2019-02-09] MEDS: DOCUSATE SODIUM LIQ 100 MG/10 ML UDC GT SCH ×2 (08:25→17:12)
[2019-02-09] MEDS: METOPROLOL TARTRATE 25 MG TABLET GT SCH ×2 (08:25→20:58)
[2019-02-09] MEDS: FERROUS SULFATE UDC 300 MG/5 ML UDC GT SCH (08:25)
[2019-02-09] MEDS: LEVETIRACETAM SOL (5 ML) 100 MG/ML UDC GT SCH ×2 (08:25→20:57)
[2019-02-09] MEDS: PROSOURCE / PROSTAT (PYXIS) 30 ML UDC GT SCH ×3 (08:25→17:13)
[2019-02-09] MEDS: LACTOBACILLUS RHAMNOSUS GG 1 EACH CAP.SPRINK GT SCH ×2 (08:25→17:12)
[2019-02-09] MEDS: TOPIRAMATE 25 MG TABLET GT SCH ×2 (08:25→20:58)
[2019-02-09] MEDS: CHLORHEXIDINE GLUCONATE 15 ML UDC MM SCH ×2 (08:26→20:58)
[2019-02-09] MEDS: ZINC SULFATE 220 MG CAPSULE GT SCH (08:26)
[2019-02-09] MEDS: TIZANIDINE HCL 4 MG TABLET GT SCH ×2 (08:26→20:58)
[2019-02-09] MEDS: LINEZOLID 600 MG TABLET GT SCH ×2 (08:26→20:58)
[2019-02-09] MEDS: HYDROCODONE/APAP 5/325MG 1 EACH TABLET GT SCH ×2 (08:31→20:58)
[2019-02-09] MEDS: CRANBERRY D MANNOSE TP SCH (08:31)
[2019-02-09] MEDS: Z GUARD REMEDY 4 OZ OINT TP SCH ×4 (09:00→21:42)
[2019-02-09] MEDS: HYDROGEL DRESSING 90 GM TUBE TP SCH ×2 (09:00→21:41)
[2019-02-09] MEDS: THERAHONEY GEL 1.5 OZ TUBE TP SCH ×3 (09:00→21:42)
[2019-02-09] MEDS: CLOTRIMAZOLE 1% 15 GM TUBE TP SCH ×10 (09:00→21:42)
[2019-02-09] MEDS: HYDROGEN PEROXIDE 480 ML BOTTLE TP SCH ×2 (10:00→21:25)
--- NOTE | 2019-02-09 10:55 | NUR ---
Received order from DENNIS Jernigan to apply SCD to bilateral lower extremities for DVT prophylaxis. Pt's mother aware.
--- NOTE | 2019-02-09 11:03 | NUR ---
Made a follow-up call to Dr. Dawn's office regarding urology consult. immediately returned the call and said that due to mandatory fire evacuation he is displaced but said he will see the patient this week.
--- NOTE | 2019-02-09 11:10 | NUR ---
Spoke with MORRO Castillo nurse and requested to review patient's most recent wound culture result which does not show VRE. After reviewing the result she said the VRE can be d/c'ed but patient will remain on isolation for MRSA of the wound. DENNIS Avery informed and gave an order to DC contact isolation for VRE. Order carried out. Addendum: 02/09/19 at 1135 by AMERICO REYES RN Patient will remain on isolation for ESBL of sacral wound not MRSA
[2019-02-09 20:46] VITALS: BP 125/89
[2019-02-09] MEDS: MULTIVITAMINS,THERAGRAN 1 UDTAB TABLET GT SCH (20:58)
[2019-02-09] MEDS: SENNOSIDES 8.6 MG TABLET GT SCH (21:00)
--- NOTE | 2019-02-09 21:25 | NUR ---
RT NOTE PT RECEIVED TRACHED ON MECHANICAL VENTILATION. AMBU BAG/BACK UP TRACH @ BEDSIDE. CUFF CHECKED VIA GEOGRAPHIC INFORMATION SYSTEMS ANALYST. TX GIVEN, NO ADVERSE REACTIONS NOTED. SX DONE, TRACH SECURED AND PATENT. VENT PLUGGED TO RED OUTLET. ALARMS ON AND AUDIBLE. WILL MONITOR T/O SHIFT. Addendum: 02/09/19 at 2126 by JAIRO KOO RT Amended: Links added.
[2019-02-10] MEDS: ALBUTEROL FS 2.5 MG/3 ML VIAL.NEB IH SCH ×4 (02:07→20:20)
[2019-02-10] MEDS: IPRATROPIUM NEB FS 0.5 MG/2.5 ML AMPUL.NEB IH SCH ×4 (02:07→20:20)
[2019-02-10] MEDS: OMEPRAZOLE 20 MG CAPSULE.DR GT SCH (05:38)
[2019-02-10] MEDS: METOCLOPRAMIDE HCL 10 MG/10 ML UDC GT SCH ×4 (05:38→23:21)
[2019-02-10] MEDS: BACLOFEN (10 MG) 10 MG TABLET GT SCH ×4 (05:38→23:21)
[2019-02-10] MEDS: MEROPENEM 1 G in IV NS 0.9% 100 ML IV SCH ×3 (05:48→21:12)
[2019-02-10 07:56] VITALS: BP 147/95
--- NOTE | 2019-02-10 08:01 | NUR ---
RT NOTE PT REC'D TRACHED ON MECHANICAL VENTILATION. AMBU BAG/BACK UP TRACH @ BEDSIDE. TRACH SECURED AND PATENT. VENT PLUGGED TO RED OUTLET. ALARMS ON AND AUDIBLE. NO SOB NOTED AT THIS TIME. WILL MONITOR. Addendum: 02/10/19 at 0802 by CHINA CAMARENA RT Amended: Links added.
[2019-02-10] MEDS: HYDROGEN PEROXIDE 480 ML BOTTLE TP SCH ×2 (08:17→20:20)
[2019-02-10] MEDS: Z GUARD REMEDY 4 OZ OINT TP SCH ×3 (09:00→21:38)
[2019-02-10] MEDS: LINEZOLID 600 MG TABLET GT SCH ×2 (09:00→20:55)
[2019-02-10] MEDS: METOPROLOL TARTRATE 25 MG TABLET GT SCH ×2 (09:00→20:54)
[2019-02-10] MEDS: LACTOBACILLUS RHAMNOSUS GG 1 EACH CAP.SPRINK GT SCH ×2 (09:00→17:11)
[2019-02-10] MEDS: HYDROGEL DRESSING 90 GM TUBE TP SCH ×2 (09:00→20:55)
[2019-02-10] MEDS: HYDROCODONE/APAP 5/325MG 1 EACH TABLET GT SCH ×2 (09:00→20:54)
[2019-02-10] MEDS: PROSOURCE / PROSTAT (PYXIS) 30 ML UDC GT SCH ×3 (09:00→17:11)
[2019-02-10] MEDS: THERAHONEY GEL 1.5 OZ TUBE TP SCH ×3 (09:00→21:38)
[2019-02-10] MEDS: DOCUSATE SODIUM LIQ 100 MG/10 ML UDC GT SCH ×2 (09:00→17:11)
[2019-02-10] MEDS: CRANBERRY D MANNOSE TP SCH (09:00)
[2019-02-10] MEDS: ZINC SULFATE 220 MG CAPSULE GT SCH (09:00)
[2019-02-10] MEDS: TOPIRAMATE 25 MG TABLET GT SCH ×2 (09:00→20:55)
[2019-02-10] MEDS: LEVETIRACETAM SOL (5 ML) 100 MG/ML UDC GT SCH ×2 (09:00→20:53)
[2019-02-10] MEDS: TIZANIDINE HCL 4 MG TABLET GT SCH ×2 (09:00→20:55)
[2019-02-10] MEDS: FERROUS SULFATE UDC 300 MG/5 ML UDC GT SCH (09:00)
[2019-02-10] MEDS: CLOTRIMAZOLE 1% 15 GM TUBE TP SCH ×9 (09:00→21:38)
[2019-02-10] MEDS: CHLORHEXIDINE GLUCONATE 15 ML UDC MM SCH ×2 (09:00→20:55)
--- NOTE | 2019-02-10 13:54 | NUR ---
ZENIA contacted and spoke with the patients father, Larry Beasley to invite family to Family Support Group for the month of February taking place 02/17/19 from 11am-12 pm in the old admin room. Larry expressed that him and his will try to attend. Noted.
--- NOTE | 2019-02-10 14:42 | NUR ---
RT NOTE RECEIVED PT MECHANICALLY VENTILATED VIA CUFFED TRACHEOSTOMY TUBE. CUFF INFLATED. TRACH TUBE MIDLINE AND SECURE. VENTILATOR SETTINGS PRESCRIBED. ALARMS SET PER PROTOCOL AND AUDIBLE. VENT PLUGGED IN TO RED OUTLET. AMBU BAG AND BACK UP TRACH AT BED SIDE. NO DISTRESS NOTED. Addendum: 02/10/19 at 1442 by ELVIS GONZALEZ RT Amended: Links added.
--- NOTE | 2019-02-10 16:11 | NUR ---
Dr. Dowell completed dental exam. 's progress note was filed in pt.'s chart
[2019-02-10] MEDS: JEVITY 1.2 CAL 1,000 ML BOTTLE GT PRN (17:12)
--- NOTE | 2019-02-10 17:42 | NUR ---
RT NOTE PT ROUTINE TRACH CHANGE DONE. MINIMAL BLEEDING AND REDNESS NOTED. NO DISTRESS NOTED. BILATERAL BREATH SOUNDS AND CHEST RISE NOTED. CONCERT PIANIST NOTIFIED. Addendum: 02/10/19 at 1744 by ELVIS GONZALEZ RT Amended: Links added.
[2019-02-10 19:49] VITALS: BP 138/71
[2019-02-10 20:07] VITALS: BP 126/93
--- NOTE | 2019-02-10 20:46 | NUR ---
PT RCVD TRACH'D ON MECHANICAL VENT WITH CHARTED SETTINGS. PT ANIKA TX WELL. SX DONE. PT TRACH IS PATENT AND SECURE. VENT ALARMS APPEAR TO BE FUNCTIONING PROPERLY. VENT PLUGGED INTO RED OUTLET. AMBU BAG AT BEDSIDE. NO SOB NOTED. Addendum: 02/10/19 at 2047 by RUBA OSPINA RT Amended: Links added.
--- NOTE | 2019-02-10 20:52 | NUR ---
Patient had 2x emesis ,with residual gastric residual of 450ml undigested milk.Abdomen soft,bowel movement current.Hold feeding and will re check residual in an hour.Notified Dr. Ybarra with new orders Zofran 4mg IV push every 8 hrs for N/V.HOB elevated to prevent aspiration.Will continue to monitor.
[2019-02-10] MEDS: MULTIVITAMINS,THERAGRAN 1 UDTAB TABLET GT SCH (20:54)
--- NOTE | 2019-02-10 20:55 | NUR ---
Resident with episode of vomiting light brown color. GT residual checked with 400 ml residual. Feeding held and HOB elevated and aspiration precaution observed. Charge Nurse RN aware and MD notified. No s/s of respiratory distress. Respiration even and unlabored. Kept clean, dry and comfortable. Will continue to monitor.
[2019-02-10] MEDS: ONDANSETRON HCL/PF 4 MG/2 ML VIAL IVP PRN (21:12)
[2019-02-10] MEDS: NYSTATIN/TRIAMCIN 15 GM CREAM 15 GM TUBE TP SCH (21:38)
[2019-02-10] MEDS: SENNOSIDES 8.6 MG TABLET GT SCH (21:39)
--- NOTE | 2019-02-10 22:13 | NUR ---
GT residual rechecked with 250 ml residual. Continue to hold feeding. No more episodes of vomiting at present moment. No SOB noted. Respiration even and unlabored without s/s of any kind of distress. HOB elevated and aspiration precaution observed. Will continue to monitor.
--- NOTE | 2019-02-10 23:23 | NUR ---
GT residual rechecked with 140 ml of residual noted. Continue to hold feeding until residual is less than 100 ml. No more episodes of vomiting at present moment. Resident calm and comfortable with no s/s of any kind of distress. kept clean, dry and comfortable. HOB elevated. Will continue to monitor.
--- NOTE | 2019-02-11 00:33 | NUR ---
GT residual rechecked with residual of 30 ml. Feeding restarted. Resident calm and comfortable without s/s of any kind of distress. Respiration even and unlabored without SOB noted. HOB elevated at all times while feeding is on. No more episodes of vomiting at present moment. Kept clean, dry, and comfortable. Call davidson within reach at all times. Repositioned q2hrs. Will continue to monitor.
[2019-02-11] MEDS: IPRATROPIUM NEB FS 0.5 MG/2.5 ML AMPUL.NEB IH SCH ×4 (01:10→20:11)
[2019-02-11] MEDS: ALBUTEROL FS 2.5 MG/3 ML VIAL.NEB IH SCH ×4 (01:10→20:11)
[2019-02-11] MEDS: MEROPENEM 1 G in IV NS 0.9% 100 ML IV SCH ×3 (05:00→21:51)
[2019-02-11] MEDS: OMEPRAZOLE 20 MG CAPSULE.DR GT SCH (05:41)
[2019-02-11] MEDS: BACLOFEN (10 MG) 10 MG TABLET GT SCH ×4 (05:41→23:14)
[2019-02-11] MEDS: METOCLOPRAMIDE HCL 10 MG/10 ML UDC GT SCH ×4 (05:41→23:14)
[2019-02-11 08:11] VITALS: BP 127/77
[2019-02-11] MEDS: TOPIRAMATE 25 MG TABLET GT SCH ×2 (09:00→20:39)
[2019-02-11] MEDS: METOPROLOL TARTRATE 25 MG TABLET GT SCH ×2 (09:00→20:38)
[2019-02-11] MEDS: NYSTATIN/TRIAMCIN 15 GM CREAM 15 GM TUBE TP SCH ×2 (09:00→20:39)
[2019-02-11] MEDS: CRANBERRY D MANNOSE TP SCH (09:00)
[2019-02-11] MEDS: HYDROGEL DRESSING 90 GM TUBE TP SCH ×2 (09:00→20:39)
[2019-02-11] MEDS: TIZANIDINE HCL 4 MG TABLET GT SCH ×2 (09:00→20:39)
[2019-02-11] MEDS: HYDROGEN PEROXIDE 480 ML BOTTLE TP SCH ×2 (09:00→20:39)
[2019-02-11] MEDS: DOCUSATE SODIUM LIQ 100 MG/10 ML UDC GT SCH ×2 (09:00→17:34)
[2019-02-11] MEDS: CLOTRIMAZOLE 1% 15 GM TUBE TP SCH ×6 (09:00→20:39)
[2019-02-11] MEDS: THERAHONEY GEL 1.5 OZ TUBE TP SCH ×3 (09:00→20:39)
[2019-02-11] MEDS: FERROUS SULFATE UDC 300 MG/5 ML UDC GT SCH (09:00)
[2019-02-11] MEDS: LACTOBACILLUS RHAMNOSUS GG 1 EACH CAP.SPRINK GT SCH ×2 (09:00→17:34)
[2019-02-11] MEDS: Z GUARD REMEDY 4 OZ OINT TP SCH ×2 (09:00→20:39)
[2019-02-11] MEDS: PROSOURCE / PROSTAT (PYXIS) 30 ML UDC GT SCH ×3 (09:00→17:34)
[2019-02-11] MEDS: HYDROCODONE/APAP 5/325MG 1 EACH TABLET GT SCH ×2 (09:00→20:39)
[2019-02-11] MEDS: CHLORHEXIDINE GLUCONATE 15 ML UDC MM SCH ×2 (09:00→20:39)
[2019-02-11] MEDS: LINEZOLID 600 MG TABLET GT SCH ×2 (09:00→20:39)
[2019-02-11] MEDS: LEVETIRACETAM SOL (5 ML) 100 MG/ML UDC GT SCH ×2 (09:00→20:38)
[2019-02-11] MEDS: ZINC SULFATE 220 MG CAPSULE GT SCH (09:00)
--- NOTE | 2019-02-11 19:00 | NUR ---
Pt rcvd awake in bed noted with vomiting episode upon endorsement- feeding color mixed with moderate amount of secretions approx 80-100 cc, kept pt's hob elevated -patient laying on his left side,no s/sx of aspiration noted, no sob- suctioned trach and mouth, dry pan charger nurse made aware- RN to give PRN Zofran.
[2019-02-11] MEDS: ONDANSETRON HCL/PF 4 MG/2 ML VIAL IVP PRN (19:33)
--- NOTE | 2019-02-11 20:18 | NUR ---
Seen and examined by DENNIS Jernigan new order for KUB in AM d/t frequent emesis and increased residual.Benzoyl Peroxide BID x 2 weeks for facial acne.Will carried out orders.
[2019-02-11] MEDS: MULTIVITAMINS,THERAGRAN 1 UDTAB TABLET GT SCH (20:39)
--- NOTE | 2019-02-11 20:59 | NUR ---
Prior to giving pt's medications- checked pt's gastric residual and noted wit 250 cc's residual, RN made aware- will hold GTF and re-check residual after an hour, SHEET CATCHER Asia Jernigan seen pt.
[2019-02-11 21:02] VITALS: BP 111/69
[2019-02-11] MEDS: SENNOSIDES 8.6 MG TABLET GT SCH (21:08)
--- NOTE | 2019-02-11 21:08 | NUR ---
RT NOTE Pt rec'd trached on [facility] vent on AC mode. No Resp distress or sob noted. Trach patent and secured. Sx'd for thick mod amt of pale yellow secretions. Alarms are set and audible. Vent plugged into red outlet. Ambu bag bedside. Will continue to monitor closely. Addendum: 02/11/19 at 2109 by YOVANA DE LA GARZA RT Amended: Links added.
--- NOTE | 2019-02-11 22:00 | NUR ---
Re-checked pt's gastric residual noted with 90 cc- resumed gtf. Cont to monitor. Pt repositioned and good pm care rendered, skin txs rendered.
[2019-02-12] MEDS: IPRATROPIUM NEB FS 0.5 MG/2.5 ML AMPUL.NEB IH SCH ×4 (01:43→19:45)
[2019-02-12] MEDS: ALBUTEROL FS 2.5 MG/3 ML VIAL.NEB IH SCH ×4 (01:43→19:45)
[2019-02-12] MEDS: MEROPENEM 1 G in IV NS 0.9% 100 ML IV SCH ×3 (05:00→21:00)
[2019-02-12] MEDS: OMEPRAZOLE 20 MG CAPSULE.DR GT SCH (05:15)
[2019-02-12] MEDS: METOCLOPRAMIDE HCL 10 MG/10 ML UDC GT SCH ×4 (05:15→23:28)
[2019-02-12] MEDS: BACLOFEN (10 MG) 10 MG TABLET GT SCH ×4 (05:15→23:28)
[2019-02-12 06:51] VITALS: BP 140/90
[2019-02-12 07:30] LABS: BASOPHILS % (AUTO) 0.3 % (0.0-2.0); EOSINOPHILS % (AUTO) 0.8 % (0.0-6.0); HEMATOCRIT 37 % (39-51); HEMOGLOBIN 12.3 g/dL (13.5-17.5); LYMPHOCYTES # (AUTO) 1.1 /CMM (0.8-4.8); LYMPHOCYTES % (AUTO) 10.3 % (20.0-44.0); MEAN CORPUSCULAR HGB CONC 34 g/dl (31.0-36.0); MEAN CORPUSCULAR VOLUME 95 fL (80-96); MONOCYTES # (AUTO) 0.9 /CMM (0.1-1.30); MONOCYTES % (AUTO) 8.5 % (2.0-12.0); NEUTROPHILS # (AUTO) 8.7 /CMM (1.8-8.9); NEUTROPHILS % (AUTO) 80.1 % (43.0-81.0); PLATELET COUNT (AUTO) 207 /CMM (150-450); RED BLOOD CELL COUNT(AUTO) 3.88 MIL/uL (4.5-6.0); WHITE BLOOD COUNT (AUTO) 10.8 K/uL (4.3-11.0)
[2019-02-12] MEDS: CRANBERRY D MANNOSE TP SCH (09:00)
[2019-02-12] MEDS: METOPROLOL TARTRATE 25 MG TABLET GT SCH ×2 (09:00→20:22)
[2019-02-12] MEDS: TOPIRAMATE 25 MG TABLET GT SCH ×2 (09:00→20:23)
[2019-02-12] MEDS: FERROUS SULFATE UDC 300 MG/5 ML UDC GT SCH (09:00)
[2019-02-12] MEDS: CHLORHEXIDINE GLUCONATE 15 ML UDC MM SCH ×2 (09:00→20:23)
[2019-02-12] MEDS: LINEZOLID 600 MG TABLET GT SCH ×2 (09:00→20:23)
[2019-02-12] MEDS: LEVETIRACETAM SOL (5 ML) 100 MG/ML UDC GT SCH ×2 (09:00→20:22)
[2019-02-12] MEDS ORDERED: BENZOYL PEROXIDE TP SCH (09:00)
[2019-02-12] MEDS: ZINC SULFATE 220 MG CAPSULE GT SCH (09:00)
[2019-02-12] MEDS: TIZANIDINE HCL 4 MG TABLET GT SCH ×2 (09:00→20:23)
[2019-02-12] MEDS: DOCUSATE SODIUM LIQ 100 MG/10 ML UDC GT SCH ×2 (09:00→17:51)
[2019-02-12] MEDS: CLOTRIMAZOLE 1% 15 GM TUBE TP SCH ×5 (09:00→20:23)
[2019-02-12] MEDS: NYSTATIN/TRIAMCIN 15 GM CREAM 15 GM TUBE TP SCH ×2 (09:00→20:23)
[2019-02-12] MEDS: HYDROCODONE/APAP 5/325MG 1 EACH TABLET GT SCH ×2 (09:00→20:23)
[2019-02-12] MEDS: HYDROGEL DRESSING 90 GM TUBE TP SCH ×2 (09:00→20:23)
[2019-02-12] MEDS: LACTOBACILLUS RHAMNOSUS GG 1 EACH CAP.SPRINK GT SCH ×2 (09:00→17:51)
[2019-02-12] MEDS: THERAHONEY GEL 1.5 OZ TUBE TP SCH (09:00)
[2019-02-12] MEDS: Z GUARD REMEDY 4 OZ OINT TP SCH (09:00)
[2019-02-12] MEDS: PROSOURCE / PROSTAT (PYXIS) 30 ML UDC GT SCH ×3 (09:00→17:51)
[2019-02-12] MEDS: HYDROGEN PEROXIDE 480 ML BOTTLE TP SCH ×2 (09:15→20:23)
--- NOTE | 2019-02-12 13:41 | NUR ---
ZENIA left pt.'s mother, Vilma a voicemail inviting the family to IDT Plan of Care Conference for 02/19/19 12:30pm-1:30pm in the activities room. ZENIA asked that Vilma call ZENIA to state if family is able to attend IDT or participate via phone conference.
--- NOTE | 2019-02-12 14:00 | NUR ---
Reported KUB result to Asia Jernigan NP showing ileus. New order given to hold GT feeding and to start IVF D5 1/2 NS at 50cc/hr, tap water enema x2, Dulcolax suppository and repeat KUB on Friday. Order carried out. Resident's mother informed of new order.
[2019-02-12] MEDS: IV D5/0.45 NACL 1,000 ML IV PRN (14:30)
--- NOTE | 2019-02-12 17:23 | NUR ---
RT Patient remained on continuous vent support on noted vent settings.Patient stable throughout the shift. Trach is patent and secured.Will continue to monitor. Addendum: 02/12/19 at 1723 by TERRY GONZALEZ RT Amended: Links added.
--- NOTE | 2019-02-12 17:55 | NUR ---
Resident noted to have redness with open skin on his L anterior foot and redness in the R anterior foot. Due to foot and LE contracture, patient observed his feet rubbing against each other when he coughs or when he clenches. Pillows in between the legs placed for positioning. MD informed and resident's mother made aware.
[2019-02-12 20:01] VITALS: BP 114/76
[2019-02-12] MEDS: MULTIVITAMINS,THERAGRAN 1 UDTAB TABLET GT SCH (20:23)
[2019-02-12] MEDS: NEOMY SULF/BACITRAC ZN/POLY 15 GM TUBE TP SCH (20:24)
[2019-02-12] MEDS: ACETAMINOPHEN 650 MG/20 ML UDC- SA PATIENTS-FEVER ONLY GT PRN (20:26)
--- NOTE | 2019-02-12 20:26 | NUR ---
Resident noted with axillary temp of 101.2 , no s/sx of acute resp. distress, on ventilator. RN made aware- pt currently on IV hydration and atb. Cooling measures provided, repositioned, and PRN Tyleon for temp > 101 given as ordered. Will continue to monitor.
[2019-02-12] MEDS: SENNOSIDES 8.6 MG TABLET GT SCH (21:09)
[2019-02-12] MEDS: BISACODYL SUPP (10 MG) 10 MG/SUPP.RECT SUPP.RECT RC PRN (21:10)
--- NOTE | 2019-02-12 21:10 | NUR ---
2nd tap water enema given as ordered, and Dulcolax suppository given after enema. Repostioned and provided pt w/ good venita care. Pt tolerated procedure.
[2019-02-13] MEDS: ALBUTEROL FS 2.5 MG/3 ML VIAL.NEB IH SCH ×4 (00:42→20:28)
[2019-02-13] MEDS: IPRATROPIUM NEB FS 0.5 MG/2.5 ML AMPUL.NEB IH SCH ×4 (00:42→20:28)
[2019-02-13] MEDS: MEROPENEM 1 G in IV NS 0.9% 100 ML IV SCH ×3 (05:00→21:00)
[2019-02-13] MEDS: BACLOFEN (10 MG) 10 MG TABLET GT SCH ×4 (05:34→23:31)
[2019-02-13] MEDS: METOCLOPRAMIDE HCL 10 MG/10 ML UDC GT SCH ×4 (05:34→23:31)
[2019-02-13] MEDS: OMEPRAZOLE 20 MG CAPSULE.DR GT SCH (05:34)
[2019-02-13 07:52] VITALS: BP 134/83
[2019-02-13] MEDS: BENZOYL PEROXIDE TP SCH ×2 (09:00→17:15)
[2019-02-13] MEDS: CLOTRIMAZOLE 1% 15 GM TUBE TP SCH ×2 (09:00→20:49)
[2019-02-13] MEDS: HYDROGEL DRESSING 90 GM TUBE TP SCH ×2 (09:00→20:49)
[2019-02-13] MEDS: NEOMY SULF/BACITRAC ZN/POLY 15 GM TUBE TP SCH ×2 (09:00→20:49)
[2019-02-13] MEDS: NYSTATIN/TRIAMCIN 15 GM CREAM 15 GM TUBE TP SCH ×2 (09:00→20:49)
[2019-02-13] MEDS: CRANBERRY D MANNOSE TP SCH (09:00)
[2019-02-13] MEDS: FERROUS SULFATE UDC 300 MG/5 ML UDC GT SCH (09:38)
[2019-02-13] MEDS: DOCUSATE SODIUM LIQ 100 MG/10 ML UDC GT SCH ×2 (09:38→17:15)
[2019-02-13] MEDS: LACTOBACILLUS RHAMNOSUS GG 1 EACH CAP.SPRINK GT SCH ×2 (09:38→17:15)
[2019-02-13] MEDS: LEVETIRACETAM SOL (5 ML) 100 MG/ML UDC GT SCH ×2 (09:39→20:48)
[2019-02-13] MEDS: METOPROLOL TARTRATE 25 MG TABLET GT SCH ×2 (09:40→20:48)
[2019-02-13] MEDS: PROSOURCE / PROSTAT (PYXIS) 30 ML UDC GT SCH ×3 (09:41→17:15)
[2019-02-13] MEDS: HYDROCODONE/APAP 5/325MG 1 EACH TABLET GT SCH ×2 (09:41→20:49)
[2019-02-13] MEDS: TOPIRAMATE 25 MG TABLET GT SCH ×2 (09:42→20:49)
[2019-02-13] MEDS: TIZANIDINE HCL 4 MG TABLET GT SCH ×2 (09:43→20:49)
[2019-02-13] MEDS: ZINC SULFATE 220 MG CAPSULE GT SCH (09:43)
[2019-02-13] MEDS: CHLORHEXIDINE GLUCONATE 15 ML UDC MM SCH ×2 (09:44→20:49)
[2019-02-13] MEDS: LINEZOLID 600 MG TABLET GT SCH ×2 (09:44→20:49)
--- NOTE | 2019-02-13 09:48 | NUR ---
RT NOTE Pt rec'd trached on [facility] vent on AC mode. No Resp distress or sob noted. Trach patent and secured. Sx'd for thick mod amt of pale yellow secretions. Alarms are set and audible. Vent plugged into red outlet. Ambu bag bedside. Will continue to monitor closely.
[2019-02-13] MEDS: HYDROGEN PEROXIDE 480 ML BOTTLE TP SCH ×2 (09:57→20:49)
--- NOTE | 2019-02-13 10:00 | NUR ---
PER DR. DIAMOND, HEMATURIA IS EXPECTED DUE TO URETHRAL TRAY USED TO ASSESS STRICTURE.
--- NOTE | 2019-02-13 10:00 | NUR ---
SEEN AND EXAMINED BY DR. DIAMOND WITH N.O. NOTED AND CARRIED OUT FOR CYSTOSCOPY, POSSIBLE LASER DIRECT VISION INTERNAL URETHROTOMY, POSSIBLE, URETHRAL DILATION AND CATHETER PLACEMENT. Addendum: 02/13/19 at 1123 by FLORIN ELLIS RN PER DR. DIAMOND, PROCEDURE WILL BE DONE NEXT WEEK ON A WEEKEND. ENDORSED ACCORDINGLY. Addendum: 02/13/19 at 1145 by FLORIN ELLIS RN INFORMED DR. PASCAL REGARDING PROCEDURE, PER DR. PASCAL RESIDENT IS CLEAR FOR THE PROCEDURE SCHEDULED. CALLED RP (ROCHELLE- MOTHER) AND LEFT MESSAGE.
[2019-02-13] MEDS: IV D5/0.45 NACL 1,000 ML IV PRN (17:19)
[2019-02-13 20:41] VITALS: BP 114/80
[2019-02-13] MEDS: MULTIVITAMINS,THERAGRAN 1 UDTAB TABLET GT SCH (20:49)
[2019-02-13] MEDS: SENNOSIDES 8.6 MG TABLET GT SCH (21:07)
[2019-02-14] MEDS: ALBUTEROL FS 2.5 MG/3 ML VIAL.NEB IH SCH ×4 (01:58→20:09)
[2019-02-14] MEDS: IPRATROPIUM NEB FS 0.5 MG/2.5 ML AMPUL.NEB IH SCH ×4 (01:58→20:09)
[2019-02-14] MEDS: MEROPENEM 1 G in IV NS 0.9% 100 ML IV SCH ×3 (05:00→21:00)
[2019-02-14] MEDS: BACLOFEN (10 MG) 10 MG TABLET GT SCH ×3 (05:09→17:34)
[2019-02-14] MEDS: METOCLOPRAMIDE HCL 10 MG/10 ML UDC GT SCH ×3 (05:09→17:34)
[2019-02-14] MEDS: OMEPRAZOLE 20 MG CAPSULE.DR GT SCH (05:09)
--- NOTE | 2019-02-14 07:01 | NUR ---
primary nurse noted movable round nodes above the tail bone area. no pain or discomfort noted when being palpated. will report to up coming nurse.
[2019-02-14 08:15] VITALS: BP 129/78
[2019-02-14] MEDS: NEOMY SULF/BACITRAC ZN/POLY 15 GM TUBE TP SCH ×2 (09:00→21:00)
[2019-02-14] MEDS: NYSTATIN/TRIAMCIN 15 GM CREAM 15 GM TUBE TP SCH ×2 (09:00→21:00)
[2019-02-14] MEDS: CLOTRIMAZOLE 1% 15 GM TUBE TP SCH ×2 (09:00→21:00)
[2019-02-14] MEDS: CRANBERRY D MANNOSE TP SCH (09:00)
[2019-02-14] MEDS: BENZOYL PEROXIDE TP SCH ×2 (09:00→17:34)
[2019-02-14] MEDS: HYDROGEL DRESSING 90 GM TUBE TP SCH ×2 (09:00→21:00)
--- NOTE | 2019-02-14 09:10 | NUR ---
KUB result reported to DENNIS Jernigan, still showing ileus, awaiting for orders
[2019-02-14] MEDS: HYDROGEN PEROXIDE 480 ML BOTTLE TP SCH ×2 (09:49→22:20)
[2019-02-14] MEDS: HYDROCODONE/APAP 5/325MG 1 EACH TABLET GT SCH ×2 (09:52→21:00)
[2019-02-14] MEDS: METOPROLOL TARTRATE 25 MG TABLET GT SCH ×2 (09:52→21:00)
[2019-02-14] MEDS: LEVETIRACETAM SOL (5 ML) 100 MG/ML UDC GT SCH ×2 (09:52→21:00)
[2019-02-14] MEDS: LACTOBACILLUS RHAMNOSUS GG 1 EACH CAP.SPRINK GT SCH ×2 (09:52→17:34)
[2019-02-14] MEDS: DOCUSATE SODIUM LIQ 100 MG/10 ML UDC GT SCH ×2 (09:52→17:32)
[2019-02-14] MEDS: FERROUS SULFATE UDC 300 MG/5 ML UDC GT SCH (09:52)
[2019-02-14] MEDS: PROSOURCE / PROSTAT (PYXIS) 30 ML UDC GT SCH ×3 (09:53→17:34)
[2019-02-14] MEDS: TOPIRAMATE 25 MG TABLET GT SCH ×2 (09:53→21:00)
[2019-02-14] MEDS: TIZANIDINE HCL 4 MG TABLET GT SCH ×2 (09:53→21:00)
[2019-02-14] MEDS: LINEZOLID 600 MG TABLET GT SCH ×2 (09:54→21:00)
[2019-02-14] MEDS: ZINC SULFATE 220 MG CAPSULE GT SCH (09:54)
[2019-02-14] MEDS: CHLORHEXIDINE GLUCONATE 15 ML UDC MM SCH ×2 (09:54→21:00)
--- NOTE | 2019-02-14 11:20 | NUR ---
Paged Dr. Ybarra and spoke with MD, updated him of patient's condition, with episode of vomiting and result of today's KUB, he ordered to continue with IVF and have GI to follow-up. Left a message to Aurea Marquez for GI consult. Awaiting for return call.
[2019-02-14] MEDS: ONDANSETRON HCL/PF 4 MG/2 ML VIAL IVP PRN ×2 (14:23→22:00)
--- NOTE | 2019-02-14 14:30 | NUR ---
Received an order from DENNIS Jernigan to start Simethicone for gas as patient has no gastric residual, but with a lot of gas. Patient with episode of vomiting 2x, one is clear and the other very light brown in color. Zofran IVP given. Resident's mother and father at bedside and they are both updated patient's condition.
[2019-02-14] MEDS: SIMETHICONE SUSP 40 MG/0.6 ML BOTTLE PO SCH (17:35)
--- NOTE | 2019-02-14 19:20 | NUR ---
1919 Patient has episode of vomiting x2 with light brown in color. No residual noted, No s/s of aspiration. Notified charge nurse and morning charge aware. V/S 99.2 hr 104 rr 12 b/p 141/81 spo2 100%. Comfort measures rendered. Kept clean dry and comfortable. Will monitor.
--- NOTE | 2019-02-14 20:09 | NUR ---
RT NOTE PATIENT RECEIVED IN STABLE CONDITION. PATIENT TOLERATING CURRENT ORDERED VENT SETTINGS. NO SIGNS OF RESPIRATORY DISTRESS NOTED. TRACH IS PATENT AND SECURE. ALARMS ARE SET AND AUDIBLE. MECHANICAL VENT IS PLUGGED INTO RED OUTLET. EMERGENCY EQUIPMENT AT BEDSIDE. WILL CONTINUE TO MONITOR. Addendum: 02/14/19 at 2031 by PEDRO LEIGH RT Amended: Links added.
[2019-02-14 20:41] VITALS: BP 141/81
[2019-02-14] MEDS: MULTIVITAMINS,THERAGRAN 1 UDTAB TABLET GT SCH (21:00)
[2019-02-14] MEDS ORDERED: ACETAMINOPHEN 650 MG/SUPP.RECT RC ONE (21:29)
[2019-02-14] MEDS: ACETAMINOPHEN 650 MG SUPP.RECT RC PRN (21:30)
--- NOTE | 2019-02-14 21:30 | NUR ---
2129 Tylenol - Acetaminophen 650mg via rectal given as ordered handed by Charge nurse d/t temp 10 Addendum: 02/15/19 at 0655 by FALLON LEWIS LVN continuation, correction temp 102.9 f pr 103 rr 12 bp 124/65. Cooling measures and comfort measures rendered. Will continue to monitor. Date : 02/14/19 Time 2129.
[2019-02-14] MEDS: SENNOSIDES 8.6 MG TABLET GT SCH (22:52)
--- NOTE | 2019-02-15 | NUR ---
0000 Patient awake V/S 142/86 hr 98 rr 12 temp 99.6 spo2 100%. Due meds given. Patient vomited x1. 10cc Residual noted. No aspiration noted, No shortness of breath noted. CN aware. Repositioned for comfort. Will continue to monitor.
[2019-02-15] MEDS: BACLOFEN (10 MG) 10 MG TABLET GT SCH ×5 (00:02→23:24)
[2019-02-15] MEDS: SIMETHICONE SUSP 40 MG/0.6 ML BOTTLE PO SCH ×5 (00:03→23:24)
[2019-02-15] MEDS: METOCLOPRAMIDE HCL 10 MG/10 ML UDC GT SCH ×4 (00:03→17:11)
--- NOTE | 2019-02-15 02:00 | NUR ---
Patient sleeping comfortably in bed. No acute distress noted No discomfort. VS Temp 98.1 hr 98 rr 12 bp 132/65. Kept clean and dry and comfortable.
[2019-02-15] MEDS: IPRATROPIUM NEB FS 0.5 MG/2.5 ML AMPUL.NEB IH SCH ×4 (02:07→20:01)
[2019-02-15] MEDS: ALBUTEROL FS 2.5 MG/3 ML VIAL.NEB IH SCH ×4 (02:07→20:01)
[2019-02-15] MEDS: IV D5/0.45 NACL 1,000 ML IV PRN ×2 (03:00→12:28)
--- NOTE | 2019-02-15 04:00 | NUR ---
Patient sleeping comfortably in bed. No acute distress noted No discomfort. No Emesis VS Temp 99.7 hr 98 rr 12 bp 129/84. Kept clean and dry and comfortable.
[2019-02-15] MEDS: MEROPENEM 1 G in IV NS 0.9% 100 ML IV SCH ×3 (05:00→21:00)
[2019-02-15] MEDS: OMEPRAZOLE 20 MG CAPSULE.DR GT SCH (05:19)
--- NOTE | 2019-02-15 06:00 | NUR ---
Patient sleeping comfortably in bed. No acute distress noted No discomfort. VS Temp 97.6 hr 96 rr 12 bp 127/82. Kept clean and dry and comfortable. Will continue to monitor.
[2019-02-15 07:59] VITALS: BP 101/66
[2019-02-15] MEDS: LEVETIRACETAM SOL (5 ML) 100 MG/ML UDC GT SCH (08:53)
[2019-02-15] MEDS: LACTOBACILLUS RHAMNOSUS GG 1 EACH CAP.SPRINK GT SCH ×2 (08:54→16:29)
[2019-02-15] MEDS: TOPIRAMATE 25 MG TABLET GT SCH ×2 (08:55→21:36)
[2019-02-15] MEDS: LINEZOLID 600 MG TABLET GT SCH ×2 (08:55→21:37)
[2019-02-15] MEDS: TIZANIDINE HCL 4 MG TABLET GT SCH ×2 (08:55→21:37)
[2019-02-15] MEDS: ZINC SULFATE 220 MG CAPSULE GT SCH (08:56)
[2019-02-15] MEDS: PROSOURCE / PROSTAT (PYXIS) 30 ML UDC GT SCH ×3 (08:57→16:29)
[2019-02-15] MEDS: METOPROLOL TARTRATE 25 MG TABLET GT SCH ×2 (08:58→21:36)
[2019-02-15] MEDS: DOCUSATE SODIUM LIQ 100 MG/10 ML UDC GT SCH ×2 (08:59→16:29)
[2019-02-15] MEDS: HYDROGEN PEROXIDE 480 ML BOTTLE TP SCH ×2 (09:00→20:01)
[2019-02-15] MEDS: FERROUS SULFATE UDC 300 MG/5 ML UDC GT SCH (09:03)
[2019-02-15] MEDS: HYDROCODONE/APAP 5/325MG 1 EACH TABLET GT SCH ×2 (09:18→21:36)
[2019-02-15] MEDS: CHLORHEXIDINE GLUCONATE 15 ML UDC MM SCH ×2 (09:19→21:37)
[2019-02-15] MEDS: CRANBERRY D MANNOSE TP SCH (09:33)
[2019-02-15] MEDS: BENZOYL PEROXIDE TP SCH ×2 (09:34→16:29)
[2019-02-15] MEDS: HYDROGEL DRESSING 90 GM TUBE TP SCH ×2 (09:34→22:00)
[2019-02-15] MEDS: CLOTRIMAZOLE 1% 15 GM TUBE TP SCH ×2 (09:35→21:00)
[2019-02-15] MEDS: NEOMY SULF/BACITRAC ZN/POLY 15 GM TUBE TP SCH ×2 (09:35→22:00)
[2019-02-15] MEDS: NYSTATIN/TRIAMCIN 15 GM CREAM 15 GM TUBE TP SCH ×2 (09:36→22:00)
--- NOTE | 2019-02-15 10:09 | NUR ---
Asked DENNIS Marquez to see pt for GI consult. Pt was vomiting and KUB showed ileus. DENNIS Villar said she will see pt.
--- NOTE | 2019-02-15 12:30 | NUR ---
Informed Dr Ybarra that pt had a temp of 102 F last night, pt was also vomiting. Temp this morning 99.9 F, no vomiting noted, no gastric residuals.
--- NOTE | 2019-02-15 19:08 | NUR ---
REVERBERATORY FURNACE SUPERVISOR Aurea ordered to change Reglan 10 mg from via GT to IV q 6, KUB on 02/16/19, NPO, GT to low intermittent suction, and change seizure medications from GT to IV. Clarified with her if other medications can be given via GT. She said NPO including medications. Informed pt's mother of new orders.
[2019-02-15] MEDS: METOCLOPRAMIDE HCL 10 MG/2 ML VIAL IV SCH (19:30)
[2019-02-15] MEDS ORDERED: METOCLOPRAMIDE HCL 10 MG/2 ML VIAL ONE (19:31)
[2019-02-15 19:57] VITALS: BP 112/70
--- NOTE | 2019-02-15 20:00 | NUR ---
RN NOTES Received new order from DENNIS Villar, Kapil to give GT meds, hold/clamp intermittent suction for 1hr post med administration, noted and carried out. Change Zyvox 600mg to GT q12hr.
--- NOTE | 2019-02-15 20:01 | NUR ---
RT NOTE: RECEIVED TRACH PT ON [facility] VENT ON NOTED SETTINGS PER MD ORDERS. TRACH IS PATENT AND SECURED. TRACH CARE DONE. LACQUER DIPPING MACHINE OPERATOR DONE. Q6 BREATHING TX GIVEN WITH NO ADVERSE REACTION NOTED. SX DONE PRN. VENT PLUGGED INTO RED OUTLET. ALARMS ON AND AUDIBLE. KARTIKU BAG @ BEDSIDE. NO RESP DISTRESS AT THIS TIME. WILL CONT TO MONITOR PT. Addendum: 02/16/19 at 0334 by KELLY HOPE RT Amended: Links added.
[2019-02-15] MEDS: KEPPRA 500 MG in IV NS 100 ML IV SCH (21:00)
--- NOTE | 2019-02-15 21:00 | NUR ---
RN NOTES Received new order to change Topamax 50mg to GT q12hr.
[2019-02-15] MEDS: MULTIVITAMINS,THERAGRAN 1 UDTAB TABLET GT SCH (21:36)
[2019-02-15] MEDS: SENNOSIDES 8.6 MG TABLET GT SCH (21:37)
[2019-02-16] MEDS: METOCLOPRAMIDE HCL 10 MG/2 ML VIAL IV SCH ×4 (00:52→17:52)
[2019-02-16] MEDS: IV D5/0.45 NACL 1,000 ML IV PRN (01:52)
[2019-02-16] MEDS: ALBUTEROL FS 2.5 MG/3 ML VIAL.NEB IH SCH ×4 (02:16→20:10)
[2019-02-16] MEDS: IPRATROPIUM NEB FS 0.5 MG/2.5 ML AMPUL.NEB IH SCH ×4 (02:16→20:10)
[2019-02-16] MEDS: MEROPENEM 1 G in IV NS 0.9% 100 ML IV SCH ×3 (05:00→21:00)
[2019-02-16] MEDS: OMEPRAZOLE 20 MG CAPSULE.DR GT SCH (05:40)
[2019-02-16] MEDS: SIMETHICONE SUSP 40 MG/0.6 ML BOTTLE PO SCH ×4 (05:40→23:39)
[2019-02-16] MEDS: BACLOFEN (10 MG) 10 MG TABLET GT SCH ×4 (05:40→23:39)
[2019-02-16 08:18] VITALS: BP 118/69
[2019-02-16] MEDS: KEPPRA 500 MG in IV NS 100 ML IV SCH ×2 (09:00→21:00)
[2019-02-16] MEDS: HYDROGEN PEROXIDE 480 ML BOTTLE TP SCH ×2 (09:00→20:34)
[2019-02-16] MEDS: LACTOBACILLUS RHAMNOSUS GG 1 EACH CAP.SPRINK GT SCH ×2 (09:11→16:58)
[2019-02-16] MEDS: DOCUSATE SODIUM LIQ 100 MG/10 ML UDC GT SCH ×2 (09:11→16:58)
[2019-02-16] MEDS: FERROUS SULFATE UDC 300 MG/5 ML UDC GT SCH (09:11)
[2019-02-16] MEDS: METOPROLOL TARTRATE 25 MG TABLET GT SCH ×2 (09:12→21:23)
[2019-02-16] MEDS: ZINC SULFATE 220 MG CAPSULE GT SCH (09:12)
[2019-02-16] MEDS: TOPIRAMATE 25 MG TABLET GT SCH ×2 (09:12→21:23)
[2019-02-16] MEDS: CHLORHEXIDINE GLUCONATE 15 ML UDC MM SCH ×2 (09:12→21:23)
[2019-02-16] MEDS: TIZANIDINE HCL 4 MG TABLET GT SCH ×2 (09:12→21:23)
[2019-02-16] MEDS: PROSOURCE / PROSTAT (PYXIS) 30 ML UDC GT SCH ×3 (09:12→16:58)
[2019-02-16] MEDS: LINEZOLID 600 MG TABLET GT SCH ×2 (09:12→21:23)
[2019-02-16] MEDS: HYDROCODONE/APAP 5/325MG 1 EACH TABLET GT SCH ×2 (09:12→21:23)
[2019-02-16] MEDS: BENZOYL PEROXIDE TP SCH ×2 (09:13→16:58)
[2019-02-16] MEDS: NYSTATIN/TRIAMCIN 15 GM CREAM 15 GM TUBE TP SCH ×2 (09:13→22:00)
[2019-02-16] MEDS: CRANBERRY D MANNOSE TP SCH (09:13)
[2019-02-16] MEDS: HYDROGEL DRESSING 90 GM TUBE TP SCH ×2 (09:13→22:00)
[2019-02-16] MEDS: CLOTRIMAZOLE 1% 15 GM TUBE TP SCH ×2 (09:13→22:00)
[2019-02-16] MEDS: NEOMY SULF/BACITRAC ZN/POLY 15 GM TUBE TP SCH ×2 (09:13→22:00)
--- NOTE | 2019-02-16 09:55 | NUR ---
Relayed KUB result to DENNIS Marquez. Pt has not vomited since 02/14/19, has bowel movements. DENNIS Marquez ordered a small bowel follow through. Notified pt's mother.
--- NOTE | 2019-02-16 09:58 | NUR ---
Seen by Dr Warren. Showed KUB result to him. No new order.
[2019-02-16] MEDS ORDERED: DIATR MEGLU/DIATRIZOATE SODIUM 120 ML BOTTLE (GASTROGRAPHIN) ONE (12:03)
--- NOTE | 2019-02-16 15:30 | NUR ---
Dr Dawn called and asked if pt's lower extremities can be moved and placed on stirrups. Pt has severe contractures and it will be a challenge to place his lower extremities on stirrups. He said he might not be able to do the procedure if he will not be able to position the pt properly in the OR. He said he will talk with the pt's family.
--- NOTE | 2019-02-16 17:32 | NUR ---
Notified pt's mother that small bowel follow through has been done but there is no available result yet. Also informed her that Dr Dawn will talk with her.
[2019-02-16 20:15] VITALS: BP 120/81
--- NOTE | 2019-02-16 21:17 | NUR ---
RT NOTE PT RECEIVED TRACHED ON MECHANICAL VENTILATION. CUFF CHECKED VIA CLOTH LAYER. AMBU BAG/BACK UP TRACH @ BEDSIDE. TX GIVEN, NO ADVERSE REACTIONS NOTED. SX DONE, TRACH SECURED AND PATENT. ALARMS ON AND AUDIBLE. VENT PLUGGED TO RED OUTLET. NO SOB NOTED. WILL MONITOR T/O SHIFT. Addendum: 02/16/19 at 2118 by JAIRO KOO RT Amended: Links added.
[2019-02-16] MEDS: MULTIVITAMINS,THERAGRAN 1 UDTAB TABLET GT SCH (21:23)
[2019-02-16] MEDS: SENNOSIDES 8.6 MG TABLET GT SCH (21:24)
[2019-02-17] MEDS: METOCLOPRAMIDE HCL 10 MG/2 ML VIAL IV SCH ×4 (00:30→18:42)
[2019-02-17] MEDS: IPRATROPIUM NEB FS 0.5 MG/2.5 ML AMPUL.NEB IH SCH ×4 (02:00→19:49)
[2019-02-17] MEDS: ALBUTEROL FS 2.5 MG/3 ML VIAL.NEB IH SCH ×4 (02:00→19:49)
[2019-02-17] MEDS: IV D5/0.45 NACL 1,000 ML IV PRN (04:00)
[2019-02-17] MEDS: MEROPENEM 1 G in IV NS 0.9% 100 ML IV SCH ×3 (05:00→21:56)
[2019-02-17] MEDS: BACLOFEN (10 MG) 10 MG TABLET GT SCH ×3 (05:33→17:19)
[2019-02-17] MEDS: OMEPRAZOLE 20 MG CAPSULE.DR GT SCH (05:33)
[2019-02-17] MEDS: SIMETHICONE SUSP 40 MG/0.6 ML BOTTLE PO SCH ×3 (05:34→17:19)
[2019-02-17 07:06] LABS: BASOPHILS % (AUTO) 0.3 % (0.0-2.0); EOSINOPHILS % (AUTO) 1.9 % (0.0-6.0); HEMATOCRIT 35 % (39-51); HEMOGLOBIN 11.6 g/dL (13.5-17.5); LYMPHOCYTES # (AUTO) 1.1 /CMM (0.8-4.8); LYMPHOCYTES % (AUTO) 12.2 % (20.0-44.0); MEAN CORPUSCULAR HGB CONC 33 g/dl (31.0-36.0); MEAN CORPUSCULAR VOLUME 98 fL (80-96); MONOCYTES % (AUTO) 10.8 % (2.0-12.0); NEUTROPHILS # (AUTO) 6.7 /CMM (1.8-8.9); NEUTROPHILS % (AUTO) 74.8 % (43.0-81.0); PLATELET COUNT (AUTO) 179 /CMM (150-450); WHITE BLOOD COUNT (AUTO) 8.9 K/uL (4.3-11.0)
[2019-02-17 08:00] VITALS: BP 137/84
--- NOTE | 2019-02-17 08:38 | NUR ---
Made a follow-up call to radiology department regarding result of small bowel follow through, according to Sukumar, there maybe other films that has not been read.
[2019-02-17] MEDS: CRANBERRY D MANNOSE TP SCH (09:00)
[2019-02-17] MEDS: BENZOYL PEROXIDE TP SCH ×2 (09:00→16:06)
[2019-02-17] MEDS: HYDROGEN PEROXIDE 480 ML BOTTLE TP SCH ×2 (09:00→21:10)
[2019-02-17] MEDS: KEPPRA 500 MG in IV NS 100 ML IV SCH ×2 (09:16→21:15)
[2019-02-17] MEDS: DOCUSATE SODIUM LIQ 100 MG/10 ML UDC GT SCH ×2 (09:45→16:06)
[2019-02-17] MEDS: LACTOBACILLUS RHAMNOSUS GG 1 EACH CAP.SPRINK GT SCH ×2 (09:45→16:06)
[2019-02-17] MEDS: FERROUS SULFATE UDC 300 MG/5 ML UDC GT SCH (09:45)
[2019-02-17] MEDS: CHLORHEXIDINE GLUCONATE 15 ML UDC MM SCH ×2 (09:50→20:59)
[2019-02-17] MEDS: TOPIRAMATE 25 MG TABLET GT SCH ×2 (09:50→20:59)
[2019-02-17] MEDS: HYDROCODONE/APAP 5/325MG 1 EACH TABLET GT SCH ×2 (09:50→20:59)
[2019-02-17] MEDS: METOPROLOL TARTRATE 25 MG TABLET GT SCH ×2 (09:50→20:59)
[2019-02-17] MEDS: LINEZOLID 600 MG TABLET GT SCH ×2 (09:50→20:59)
[2019-02-17] MEDS: TIZANIDINE HCL 4 MG TABLET GT SCH ×2 (09:50→20:59)
[2019-02-17] MEDS: ZINC SULFATE 220 MG CAPSULE GT SCH (09:50)
[2019-02-17] MEDS: PROSOURCE / PROSTAT (PYXIS) 30 ML UDC GT SCH ×3 (09:50→16:06)
--- NOTE | 2019-02-17 10:21 | NUR ---
Relayed small bowel follow through result to Dr. Sloan, he said " I don't understand why he developed ileus", but will review result. NNO given at this time.
[2019-02-17] MEDS: NYSTATIN/TRIAMCIN 15 GM CREAM 15 GM TUBE TP SCH ×2 (11:00→21:00)
[2019-02-17] MEDS: NEOMY SULF/BACITRAC ZN/POLY 15 GM TUBE TP SCH (11:00)
[2019-02-17] MEDS: HYDROGEL DRESSING 90 GM TUBE TP SCH ×2 (11:00→20:59)
[2019-02-17] MEDS: CLOTRIMAZOLE 1% 15 GM TUBE TP SCH ×2 (11:00→21:00)
--- NOTE | 2019-02-17 11:30 | NUR ---
Seen and examined by Dr. Ybarra, updated MD of patient's condition, made him aware that patient being followed by GI, SBFT was done showing "persistent gaseous distension of the colon with mildly delayed passage of contrast through the small bowel likely ileus". Urologist Dr. Dawn seen patient with plan to do cystoscopy next week or so. NNO given at this time.
--- NOTE | 2019-02-17 13:40 | NUR ---
The pt.'s family was not able to attend this month's Family Support Group.
--- NOTE | 2019-02-17 20:15 | NUR ---
pt temp 100.1, no s/s of respiratory distress. calm. cooling measures rendered. all needs attended. will monitor closely.
[2019-02-17 20:20] VITALS: BP 140/85
[2019-02-17] MEDS: MULTIVITAMINS,THERAGRAN 1 UDTAB TABLET GT SCH (20:59)
[2019-02-17] MEDS: SENNOSIDES 8.6 MG TABLET GT SCH (21:00)
--- NOTE | 2019-02-17 21:19 | NUR ---
PT RECEIVE STABLE ON MV. SETTINGS ARE AC 12 500 + 5 AT 40% , VENT IS PLUG AT RED OUTLET, TRACH PATENT AND SECURED, SPARE TRACH AND AMBU BAG IS AT BEDSIDE, WILL CONTINUE TO MONITOR. Addendum: 02/17/19 at 2121 by AMANDA GALLO RT Amended: Links added.
--- NOTE | 2019-02-17 21:35 | NUR ---
cooling measures effective. pt temp 99.3. awake. calm. no discomfort noted. will continue to monitor closely.
[2019-02-18] MEDS: BACLOFEN (10 MG) 10 MG TABLET GT SCH ×4 (00:43→17:26)
[2019-02-18] MEDS: SIMETHICONE SUSP 40 MG/0.6 ML BOTTLE PO SCH ×4 (00:43→17:26)
[2019-02-18] MEDS: IPRATROPIUM NEB FS 0.5 MG/2.5 ML AMPUL.NEB IH SCH ×4 (00:44→19:55)
[2019-02-18] MEDS: ALBUTEROL FS 2.5 MG/3 ML VIAL.NEB IH SCH ×4 (00:45→19:55)
[2019-02-18] MEDS: METOCLOPRAMIDE HCL 10 MG/2 ML VIAL IV SCH ×2 (01:05→06:36)
[2019-02-18] MEDS: IV D5/0.45 NACL 1,000 ML IV PRN ×2 (03:59→20:35)
[2019-02-18] MEDS: MEROPENEM 1 G in IV NS 0.9% 100 ML IV SCH ×3 (05:05→20:36)
[2019-02-18] MEDS: OMEPRAZOLE 20 MG CAPSULE.DR GT SCH (06:04)
[2019-02-18 07:41] VITALS: BP 119/79
[2019-02-18] MEDS: TIZANIDINE HCL 4 MG TABLET GT SCH ×2 (09:00→21:00)
[2019-02-18] MEDS: HYDROGEL DRESSING 90 GM TUBE TP SCH ×2 (09:00→21:00)
[2019-02-18] MEDS: ZINC SULFATE 220 MG CAPSULE GT SCH (09:00)
[2019-02-18] MEDS: DOCUSATE SODIUM LIQ 100 MG/10 ML UDC GT SCH ×2 (09:00→17:26)
[2019-02-18] MEDS: PROSOURCE / PROSTAT (PYXIS) 30 ML UDC GT SCH ×3 (09:00→17:26)
[2019-02-18] MEDS: NYSTATIN/TRIAMCIN 15 GM CREAM 15 GM TUBE TP SCH ×2 (09:00→21:00)
[2019-02-18] MEDS: CHLORHEXIDINE GLUCONATE 15 ML UDC MM SCH ×2 (09:00→21:00)
[2019-02-18] MEDS: FERROUS SULFATE UDC 300 MG/5 ML UDC GT SCH (09:00)
[2019-02-18] MEDS: LINEZOLID 600 MG TABLET GT SCH ×2 (09:00→21:00)
[2019-02-18] MEDS: BENZOYL PEROXIDE TP SCH ×2 (09:00→17:26)
[2019-02-18] MEDS: TOPIRAMATE 25 MG TABLET GT SCH ×2 (09:00→21:00)
[2019-02-18] MEDS: KEPPRA 500 MG in IV NS 100 ML IV SCH (09:00)
[2019-02-18] MEDS: CRANBERRY D MANNOSE TP SCH (09:00)
[2019-02-18] MEDS: LACTOBACILLUS RHAMNOSUS GG 1 EACH CAP.SPRINK GT SCH ×2 (09:00→17:26)
[2019-02-18] MEDS: METOPROLOL TARTRATE 25 MG TABLET GT SCH ×2 (09:00→21:00)
[2019-02-18] MEDS: CLOTRIMAZOLE 1% 15 GM TUBE TP SCH ×2 (09:00→21:00)
[2019-02-18] MEDS: HYDROCODONE/APAP 5/325MG 1 EACH TABLET GT SCH ×2 (09:00→21:00)
[2019-02-18] MEDS: HYDROGEN PEROXIDE 480 ML BOTTLE TP SCH ×2 (13:55→20:14)
--- NOTE | 2019-02-18 14:09 | NUR ---
Spoke with Dr. Dawn urologist, to follow-up the plan for patient, according to MD he will call patient's mother to discuss the plan. Endorsed.
--- NOTE | 2019-02-18 16:01 | NUR ---
PATIENT REMAINS STABLE ON ORDERED MODALITIES ANIKA WELL. CONT CURRENT PLAN OF CARE. TRACH CARE DONE
--- NOTE | 2019-02-18 17:15 | NUR ---
ESTATE PLANNER Aurea Marquez, measurement coordinator seen and examined resident. Resident's father at bedside and explained the plan to him. At this time ESTATE PLANNER ordered to start GT feeding at a low rate and if tolerated to increase in increments of 10cc/hr every 4 hours as tolerated until goal is met of 70cc/hr. She also said to keep IVF for now and to reevaluate in AM if feeding is tolerated. Abdominal KUB is ordered in AM. ESTATE PLANNER also MENDY Reglan as it interacts with Zyvox, to be reevaluate on 02/23 because Zyvox's dose is completed by 02/22/19. Endorsed.
[2019-02-18] MEDS ORDERED: METOCLOPRAMIDE HCL 10 MG TABLET GT SCH (18:00)
--- NOTE | 2019-02-18 20:00 | NUR ---
PT RCVD TRACH'D ON MECHANICAL VENT WITH CHARTED SETTINGS. PT ANIKA TX WELL. SX DONE. PT TRACH IS PATENT AND SECURE. VENT ALARMS APPEAR TO BE FUNCTIONING PROPERLY. VENT PLUGGED INTO RED OUTLET. AMBU BAG AT BEDSIDE. NO SOB NOTED. Addendum: 02/18/19 at 1999 by RUBA OSPINA RT Amended: Links added.
[2019-02-18 20:37] VITALS: BP 133/88
[2019-02-18] MEDS: ONDANSETRON HCL/PF 4 MG/2 ML VIAL IVP PRN (20:57)
[2019-02-18] MEDS: LEVETIRACETAM SOL (5 ML) 100 MG/ML UDC GT SCH (21:00)
[2019-02-18] MEDS: MULTIVITAMINS,THERAGRAN 1 UDTAB TABLET GT SCH (21:00)
--- NOTE | 2019-02-18 21:07 | NUR ---
Pt still noted with emesis x 2 mixed with copious secretions and yellowish gastric juice.GT feeding unable to start at this time.Zofran 4mg IV given for N/V .HOB elevated.Will continue to monitor.
[2019-02-18] MEDS: SENNOSIDES 8.6 MG TABLET GT SCH (22:11)
--- NOTE | 2019-02-18 23:16 | NUR ---
RT NOTE SWAGE TENDER FALLON AND CHARGE NURSE MARTI AWARE OF INCREASED HEART RATE.
[2019-02-18] MEDS: ACETAMINOPHEN 650 MG SUPP.RECT RC PRN (23:18)
[2019-02-18] MEDS ORDERED: ACETAMINOPHEN 650 MG/SUPP.RECT RC ONE (23:18)
--- NOTE | 2019-02-18 23:18 | NUR ---
Patient has episode of x1 vomiting at this time and appears like tea color with Temp 101.9f Hr 114. Prn Acetaminophen 650mg suppository given via rectal as ordered. Cooling and comfort measures rendered. Charge nurse aware. Will continue to monitor.
[2019-02-19] MEDS: ALBUTEROL FS 2.5 MG/3 ML VIAL.NEB IH SCH ×4 (00:43→19:51)
[2019-02-19] MEDS: IPRATROPIUM NEB FS 0.5 MG/2.5 ML AMPUL.NEB IH SCH ×4 (00:43→19:51)
[2019-02-19] MEDS: MEROPENEM 1 G in IV NS 0.9% 100 ML IV SCH ×3 (05:00→21:10)
--- NOTE | 2019-02-19 05:30 | NUR ---
Patient gastric residual 250ml coffee ground.HOB elevated to prevent aspiration.Notified COMMUNICATION LECTURER Aurea Marquez awaiting for call back.Will continue to monitor.
--- NOTE | 2019-02-19 05:59 | NUR ---
Received orders from Aurea Marquez [facility] to discontinue order for gt feeding,connect GT to low intermittent suction.D/C Zofran 4mg q 8hrs PRN.Zofran 4 mg IV q 6 PRN for N/V.Ok to give medications,clamp intermittent suction for 1 hr post medication administration.Will carried out and will continue to monitor patient closely.
[2019-02-19] MEDS: OMEPRAZOLE 20 MG CAPSULE.DR GT SCH (06:34)
[2019-02-19] MEDS: SIMETHICONE SUSP 40 MG/0.6 ML BOTTLE PO SCH ×4 (06:34→18:19)
[2019-02-19] MEDS: BACLOFEN (10 MG) 10 MG TABLET GT SCH ×4 (06:34→18:19)
--- NOTE | 2019-02-19 06:53 | NUR ---
FOOT DOCTOR reported GT dislodged with balloon intact.Replaced with GT Persian #20x 20 ml balloon without any difficulty and connected back to intermittent low suction.Pt have schedule KUB today.Will endorsed.
[2019-02-19 06:54] LABS: BASOPHILS % (AUTO) 0.3 % (0.0-2.0); EOSINOPHILS % (AUTO) 0.3 % (0.0-6.0); HEMATOCRIT 34 % (39-51); HEMOGLOBIN 11.5 g/dL (13.5-17.5); LYMPHOCYTES # (AUTO) 0.8 /CMM (0.8-4.8); LYMPHOCYTES % (AUTO) 7.3 % (20.0-44.0); MEAN CORPUSCULAR HGB CONC 34 g/dl (31.0-36.0); MEAN CORPUSCULAR VOLUME 95 fL (80-96); MONOCYTES # (AUTO) 1.1 /CMM (0.1-1.30); MONOCYTES % (AUTO) 9.1 % (2.0-12.0); NEUTROPHILS # (AUTO) 9.7 /CMM (1.8-8.9); PLATELET COUNT (AUTO) 209 /CMM (150-450); RED BLOOD CELL COUNT(AUTO) 3.59 MIL/uL (4.5-6.0); WHITE BLOOD COUNT (AUTO) 11.6 K/uL (4.3-11.0)
[2019-02-19 07:13] LABS: CALCIUM, SERUM 8.8 mg/dL (8.5-10.1); CREATININE 0.7 mg/dL (0.6-1.3)
[2019-02-19 07:23] LABS: POTASSIUM 2.6 mmol/L (3.5-5.1)
--- NOTE | 2019-02-19 07:30 | NUR ---
Paged Dr Ybarra for K 2.6.
--- NOTE | 2019-02-19 07:40 | NUR ---
Informed Dr Ybarra that pt's K 2.6. Also informed him that pt vomited 3 times last night, had a temp of 101.9 F, pt has not had GT feeding since 02/10/19. Dr Ybarra ordered to give KCl 40 mEq IV x 1 to infuse for 4 hours. He said he will see pt today. Informed pt's mother.
[2019-02-19] MEDS: HYDROGEN PEROXIDE 480 ML BOTTLE TP SCH ×2 (08:02→21:08)
[2019-02-19 08:16] VITALS: BP 101/60
[2019-02-19] MEDS ORDERED: ONDANSETRON HCL/PF 4 MG/2 ML VIAL IVP PRN (08:30)
[2019-02-19] MEDS: Potassium Chloride 10 MEQ in IV D5W 50 ML IV SCH ×4 (08:30→11:30)
[2019-02-19] MEDS: CRANBERRY D MANNOSE TP SCH (09:00)
[2019-02-19] MEDS: LINEZOLID 600 MG TABLET GT SCH ×2 (09:00→20:14)
[2019-02-19] MEDS: CLOTRIMAZOLE 1% 15 GM TUBE TP SCH (09:00)
[2019-02-19] MEDS: DOCUSATE SODIUM LIQ 100 MG/10 ML UDC GT SCH ×2 (09:00→17:00)
[2019-02-19] MEDS: TIZANIDINE HCL 4 MG TABLET GT SCH ×2 (09:00→20:14)
[2019-02-19] MEDS: LEVETIRACETAM SOL (5 ML) 100 MG/ML UDC GT SCH ×2 (09:00→20:13)
[2019-02-19] MEDS: FERROUS SULFATE UDC 300 MG/5 ML UDC GT SCH (09:00)
[2019-02-19] MEDS: METOPROLOL TARTRATE 25 MG TABLET GT SCH ×2 (09:00→20:14)
[2019-02-19] MEDS: HYDROCODONE/APAP 5/325MG 1 EACH TABLET GT SCH ×2 (09:00→21:57)
[2019-02-19] MEDS: NYSTATIN/TRIAMCIN 15 GM CREAM 15 GM TUBE TP SCH ×2 (09:00→20:14)
[2019-02-19] MEDS: ZINC SULFATE 220 MG CAPSULE GT SCH (09:00)
[2019-02-19] MEDS: HYDROGEL DRESSING 90 GM TUBE TP SCH ×2 (09:00→20:14)
[2019-02-19] MEDS: TOPIRAMATE 25 MG TABLET GT SCH ×2 (09:00→20:14)
[2019-02-19] MEDS: CHLORHEXIDINE GLUCONATE 15 ML UDC MM SCH ×2 (09:00→20:14)
[2019-02-19] MEDS: LACTOBACILLUS RHAMNOSUS GG 1 EACH CAP.SPRINK GT SCH ×2 (09:00→17:00)
[2019-02-19] MEDS: PROSOURCE / PROSTAT (PYXIS) 30 ML UDC GT SCH ×3 (09:00→17:00)
[2019-02-19] MEDS: BENZOYL PEROXIDE TP SCH ×2 (09:00→17:00)
[2019-02-19] MEDS: IV D5/0.45 NACL 1,000 ML IV PRN (09:30)
--- NOTE | 2019-02-19 11:25 | NUR ---
DENNIS Marquez ordered to give Erythromycin 500 mg IV q 8 hours and to check for fecal occult blood. Notified pt's mother.
--- NOTE | 2019-02-19 11:40 | NUR ---
DENNIS Marquez ordered Erythromycin 250 mg IV q 8 hours instead of 500 mg.
--- NOTE | 2019-02-19 12:30 | NUR ---
Dr Ybarra saw pt and reviewed lab results. He ordered to change IVF from D5 1/2 NS to D5 water with 20 mEq KCl at 125 mL/hr IV. He also ordered CBC BMP Mg on 02/22/19.
--- NOTE | 2019-02-19 13:17 | NUR ---
Called Dr Ybarra's office to ask him if he wants to order TPN for the pt. Left message with Christie.
[2019-02-19] MEDS: ERYTHROMYCIN 250 MG in IV NS 0.9% 100 ML IV SCH ×2 (14:00→21:10)
--- NOTE | 2019-02-19 14:15 | NUR ---
Dr Dawn called to say he will do cystoscopy with direct vision internal urethrotomy with laser possible urethral dilation on 02/20/19 at 0830 am.
[2019-02-19] MEDS: KCL IV PRN ×2 (15:00)
[2019-02-19] MEDS: [UNRECOGNIZED DRUG - OTHER] IV PRN ×2 (15:00)
--- NOTE | 2019-02-19 15:50 | NUR ---
Called Dr Ybarra's office again to ask about starting pt on TPN. Also wanted to ask Dr Ybarra if he thinks pt needs to be transferred to acute care due to vomiting and fevers. Dr Ybarra's office answering machine said to call [facility]. Called [facility] and waiting for account information clerk doctor to call.
--- NOTE | 2019-02-19 15:50 | NUR ---
Jackie from admitting informed charge nurse that authorization from pt's insurance to do cystoscopy will not be obtained until Friday02/22/19. Notified Dr Dawn. He said it is not urgent and can wait until there is an authorization.
--- NOTE | 2019-02-19 16:17 | NUR ---
INTERDISCIPLINARY PLAN OF CARE CONFERENCE took place today. The patients responsible libertarian, Vilma Ramos [phone] was not able to attend or participate via phone conference. Vilma informed SW that Charge Nurse had updated her in the morning and she should be called only if anything new presented itself. Charge nurse discussed feeding has been on hold since 02/10/19 due to excessive vomiting. Dr. Ybarra will follow up. Dr. Warren and Interdisciplinary team discussed the plan of care in detail. Current orders as well as treatments and medications were reviewed. Please see other disciplines IDT notes for further details.
--- NOTE | 2019-02-19 16:35 | NUR ---
Asked Dr Warren if he wanted to order TPN for the pt. Dr Warren aware that pt vomited 3 times last night and had a temp of 101.9 F, pt also has not had tube feeding since 02/12/19. Dr Warren ordered to start pt on TPN. Also left message for GI MANAGER LANDSCAPE Aurea Marquez. She said to hold off on the TPN and that she started pt on Erythromycin. Notified her that station captain is recommending TPN and Dr Warren ordered TPN. Notified her also that pt has had 200 mL of coffee ground gastric residuals since the start of the shift 7am, no stool has been collected yet for OB since pt has not had a BM this shift. Informed Dr Warren that GI said to hold off on TPN. Dr Warren said to defer to GI. Notified pt's mother.
--- NOTE | 2019-02-19 16:45 | NUR ---
Informed pt's father of vomiting, fever, gastric residuals, and new IV fluid order. Also informed him that cystoscopy was scheduled for tomorrow but insurance has not given authorization for the procedure yet.
[2019-02-19] MEDS: ACETAMINOPHEN 650 MG/20 ML UDC- SA PATIENTS-FEVER ONLY GT PRN (20:05)
--- NOTE | 2019-02-19 20:05 | NUR ---
given prn tylenol 650 mg via gt d/t temp 101.4. cooling measures rendered. no s/s of distress noted. will monitor closely.
[2019-02-19] MEDS: MULTIVITAMINS,THERAGRAN 1 UDTAB TABLET GT SCH (20:14)
[2019-02-19 20:23] VITALS: BP_SYST 155; BP_SYST 99; BP_DIAS 70; BP_DIAS 78
--- NOTE | 2019-02-19 21:15 | NUR ---
tylenol effective. temp 98.4. pt awake. calm. no discomfort noted. all needs attended. will continue to monitor closely.
[2019-02-19] MEDS: SENNOSIDES 8.6 MG TABLET GT SCH (21:57)
[2019-02-20] MEDS: KCL IV PRN ×6 (00:17→18:06)
[2019-02-20] MEDS: [UNRECOGNIZED DRUG - OTHER] IV PRN ×6 (00:17→18:06)
[2019-02-20] MEDS: SIMETHICONE SUSP 40 MG/0.6 ML BOTTLE PO SCH ×5 (00:24→23:37)
[2019-02-20] MEDS: BACLOFEN (10 MG) 10 MG TABLET GT SCH ×5 (00:24→23:37)
[2019-02-20] MEDS: ALBUTEROL FS 2.5 MG/3 ML VIAL.NEB IH SCH ×4 (01:55→19:41)
[2019-02-20] MEDS: IPRATROPIUM NEB FS 0.5 MG/2.5 ML AMPUL.NEB IH SCH ×4 (01:55→19:41)
[2019-02-20] MEDS: ERYTHROMYCIN 250 MG in IV NS 0.9% 100 ML IV SCH ×3 (05:00→21:00)
[2019-02-20] MEDS: OMEPRAZOLE 20 MG CAPSULE.DR GT SCH (05:36)
[2019-02-20 08:27] VITALS: BP 113/59
[2019-02-20] MEDS: HYDROGEN PEROXIDE 480 ML BOTTLE TP SCH ×2 (09:00→21:05)
[2019-02-20] MEDS: DOCUSATE SODIUM LIQ 100 MG/10 ML UDC GT SCH ×2 (09:46→16:47)
[2019-02-20] MEDS: FERROUS SULFATE UDC 300 MG/5 ML UDC GT SCH (09:46)
[2019-02-20] MEDS: LACTOBACILLUS RHAMNOSUS GG 1 EACH CAP.SPRINK GT SCH ×2 (09:46→16:47)
[2019-02-20] MEDS: METOPROLOL TARTRATE 25 MG TABLET GT SCH ×2 (09:46→21:42)
[2019-02-20] MEDS: LEVETIRACETAM SOL (5 ML) 100 MG/ML UDC GT SCH ×2 (09:46→21:42)
[2019-02-20] MEDS: CHLORHEXIDINE GLUCONATE 15 ML UDC MM SCH ×2 (09:47→21:59)
[2019-02-20] MEDS: TIZANIDINE HCL 4 MG TABLET GT SCH ×2 (09:47→21:43)
[2019-02-20] MEDS: BENZOYL PEROXIDE TP SCH ×2 (09:47→16:47)
[2019-02-20] MEDS: ZINC SULFATE 220 MG CAPSULE GT SCH (09:47)
[2019-02-20] MEDS: HYDROCODONE/APAP 5/325MG 1 EACH TABLET GT SCH ×2 (09:47→21:43)
[2019-02-20] MEDS: HYDROGEL DRESSING 90 GM TUBE TP SCH ×2 (09:47→21:59)
[2019-02-20] MEDS: CRANBERRY D MANNOSE TP SCH (09:47)
[2019-02-20] MEDS: LINEZOLID 600 MG TABLET GT SCH ×2 (09:47→21:43)
[2019-02-20] MEDS: TOPIRAMATE 25 MG TABLET GT SCH ×2 (09:47→21:43)
[2019-02-20] MEDS: PROSOURCE / PROSTAT (PYXIS) 30 ML UDC GT SCH ×3 (09:47→16:47)
[2019-02-20] MEDS: NYSTATIN/TRIAMCIN 15 GM CREAM 15 GM TUBE TP SCH ×2 (09:48→21:59)
[2019-02-20] MEDS: MEROPENEM 1 G in IV NS 0.9% 100 ML IV SCH ×2 (13:00→21:00)
--- NOTE | 2019-02-20 14:43 | NUR ---
Seen and examined by Aurea Marquez NP with new order. KUB today to r/o ileus, requested. Afebrile, abdomen soft and nondistended, positive bowel sound. No vomiting noted. G-tube connected to intermittent suction, draining small amount of yellowish gastric content. Will continue to monitor.
--- NOTE | 2019-02-20 19:00 | NUR ---
KUB result sent to Aurea Marquez NP, no new order given. Afebrile, no vomiting noted. Will continue to monitor.
[2019-02-20 19:47] VITALS: BP 142/73
[2019-02-20 20:30] VITALS: BP 118/77
[2019-02-20] MEDS: SENNOSIDES 8.6 MG TABLET GT SCH (21:43)
[2019-02-20] MEDS: MULTIVITAMINS,THERAGRAN 1 UDTAB TABLET GT SCH (21:43)
[2019-02-21] MEDS: ALBUTEROL FS 2.5 MG/3 ML VIAL.NEB IH SCH ×4 (01:38→19:34)
[2019-02-21] MEDS: IPRATROPIUM NEB FS 0.5 MG/2.5 ML AMPUL.NEB IH SCH ×4 (01:38→19:34)
[2019-02-21] MEDS: ACETAMINOPHEN 650 MG/20 ML UDC- SA PATIENTS-FEVER ONLY GT PRN (03:00)
--- NOTE | 2019-02-21 03:00 | NUR ---
pt given tylenol 650 mg via gt d/t temp 101.2. no s/s of respiratory distress. cooling measures provided. all comfort measures rendered. will continue to monitor closely. CN aware.
--- NOTE | 2019-02-21 04:09 | NUR ---
tylenol effective. temp 99.6. pt appears comfortable with no s/s of distress. will continue to monitor.
[2019-02-21] MEDS: ERYTHROMYCIN 250 MG in IV NS 0.9% 100 ML IV SCH ×3 (05:00→21:30)
[2019-02-21] MEDS: MEROPENEM 1 G in IV NS 0.9% 100 ML IV SCH ×3 (05:00→21:30)
[2019-02-21 05:21] LABS: OCCULT BLOOD STOOL NEGATIVE (NEGATIVE)
[2019-02-21] MEDS: SIMETHICONE SUSP 40 MG/0.6 ML BOTTLE PO SCH ×3 (06:28→17:46)
[2019-02-21] MEDS: OMEPRAZOLE 20 MG CAPSULE.DR GT SCH (06:28)
[2019-02-21] MEDS: BACLOFEN (10 MG) 10 MG TABLET GT SCH ×3 (06:28→17:39)
[2019-02-21] MEDS: KCL IV PRN ×4 (06:54→15:00)
[2019-02-21] MEDS: [UNRECOGNIZED DRUG - OTHER] IV PRN ×4 (06:54→15:00)
--- NOTE | 2019-02-21 07:08 | NUR ---
pt asleep. appears calm and comfortable. temp 100.[address] no s/s of respiratory distress. noted 700 ml gastric residual, white with phlegm. emesis x1, approximately 100ml. cn aware. pt on continued intermittent gt suction. all comfort measures in place. will endorse to oncoming nurse.
[2019-02-21 08:08] VITALS: BP 140/68
[2019-02-21] MEDS: HYDROGEN PEROXIDE 480 ML BOTTLE TP SCH ×2 (08:10→21:00)
[2019-02-21] MEDS: NYSTATIN/TRIAMCIN 15 GM CREAM 15 GM TUBE TP SCH ×2 (09:00→20:47)
[2019-02-21] MEDS: HYDROGEL DRESSING 90 GM TUBE TP SCH (09:00)
[2019-02-21] MEDS: BENZOYL PEROXIDE TP SCH ×2 (09:00→16:35)
[2019-02-21] MEDS: DOCUSATE SODIUM LIQ 100 MG/10 ML UDC GT SCH ×2 (09:28→16:33)
[2019-02-21] MEDS: LACTOBACILLUS RHAMNOSUS GG 1 EACH CAP.SPRINK GT SCH ×2 (09:35→16:34)
[2019-02-21] MEDS: FERROUS SULFATE UDC 300 MG/5 ML UDC GT SCH (09:35)
[2019-02-21] MEDS: METOPROLOL TARTRATE 25 MG TABLET GT SCH ×2 (09:35→20:45)
[2019-02-21] MEDS: LEVETIRACETAM SOL (5 ML) 100 MG/ML UDC GT SCH ×2 (09:35→20:44)
[2019-02-21] MEDS: TOPIRAMATE 25 MG TABLET GT SCH ×2 (09:37→20:46)
[2019-02-21] MEDS: HYDROCODONE/APAP 5/325MG 1 EACH TABLET GT SCH ×2 (09:37→20:46)
[2019-02-21] MEDS: PROSOURCE / PROSTAT (PYXIS) 30 ML UDC GT SCH ×3 (09:37→16:34)
[2019-02-21] MEDS: TIZANIDINE HCL 4 MG TABLET GT SCH ×2 (09:38→20:44)
[2019-02-21] MEDS: CHLORHEXIDINE GLUCONATE 15 ML UDC MM SCH ×2 (09:39→21:09)
[2019-02-21] MEDS: LINEZOLID 600 MG TABLET GT SCH ×2 (09:39→20:46)
[2019-02-21] MEDS: ZINC SULFATE 220 MG CAPSULE GT SCH (09:39)
[2019-02-21] MEDS: CRANBERRY D MANNOSE TP SCH (09:41)
--- NOTE | 2019-02-21 12:56 | NUR ---
Referred to Aurea Marquez NP d/t 500 ml gastric output from G-tube intermittent suction from [id number] with new order to start TPN, carried out. Resident awake, appears comfortable, afebrile. No s/s of distress. Abdomen soft, nondistended, positive bowel sound. Will continue to monitor.
--- NOTE | 2019-02-21 14:00 | NUR ---
Called resident mother Vilma and gave update regarding starting TPN today, appreciated the call. She might come visit daisy.
[2019-02-21 16:29] LABS: BASOPHILS % (AUTO) 0.3 % (0.0-2.0); EOSINOPHILS % (AUTO) 5.2 % (0.0-6.0); HEMATOCRIT 30 % (39-51); HEMOGLOBIN 10.1 g/dL (13.5-17.5); LYMPHOCYTES % (AUTO) 18.5 % (20.0-44.0); MEAN CORPUSCULAR HGB CONC 34 g/dl (31.0-36.0); MEAN CORPUSCULAR VOLUME 97 fL (80-96); MONOCYTES # (AUTO) 0.5 /CMM (0.1-1.30); MONOCYTES % (AUTO) 8.5 % (2.0-12.0); NEUTROPHILS # (AUTO) 3.6 /CMM (1.8-8.9); NEUTROPHILS % (AUTO) 67.5 % (43.0-81.0); PLATELET COUNT (AUTO) 198 /CMM (150-450); RED BLOOD CELL COUNT(AUTO) 3.11 MIL/uL (4.5-6.0); WHITE BLOOD COUNT (AUTO) 5.4 K/uL (4.3-11.0)
[2019-02-21] MEDS ORDERED: DEXTROSE 50%-WATER 50 ML DISP.SYRIN IV PRN (16:30)
[2019-02-21 16:39] LABS: CALCIUM, SERUM 8.7 mg/dL (8.5-10.1); CREATININE 0.7 mg/dL (0.6-1.3); POTASSIUM 3.3 mmol/L (3.5-5.1)
[2019-02-21] MEDS ORDERED: FEE TPN 1 MIN EA MC ONE (16:40)
[2019-02-21 16:42] LABS: ALBUMIN 2.9 g/dL (3.4-5.0); PHOSPHORUS 2.2 mg/dL (2.5-4.9); PREALBUMIN 18.4 MG/DL (18.0-35.7)
[2019-02-21] MEDS ORDERED: TPN BAG #1 IV PRN ×6 (17:00)
--- NOTE | 2019-02-21 17:30 | NUR ---
Resident's father came visit, new plan of care explained. Expressed understanding and appreciates the care.
[2019-02-21] MEDS: INSULIN REGULAR, HUMAN 100 UNIT/ML 3 ML VIAL SQ PRN (17:45)
[2019-02-21] MEDS: BLOOD SUGAR DIAGNOSTIC 1 EACH STRIP IN SCH (17:45)
[2019-02-21] MEDS ORDERED: [UNRECOGNIZED DRUG - OTHER] IV PRN ×2 (18:00)
[2019-02-21] MEDS ORDERED: KCL IV PRN ×2 (18:00)
--- NOTE | 2019-02-21 18:06 | NUR ---
TPN started at 20 ml/hour, rate to be increased to 40 ml/hr after 1-2 hours. D5W + 20 meq KCL decreased rate to 80 ml/hr. No vomiting noted. 600 ml gastric output from intermittent suction. Will continue to monitor.
[2019-02-21] MEDS: MULTIVITAMINS,THERAGRAN 1 UDTAB TABLET GT SCH (20:46)
[2019-02-21] MEDS: CLOTRIMAZOLE 1% 15 GM TUBE TP SCH (20:47)
[2019-02-21] MEDS: THERAHONEY GEL 1.5 OZ TUBE TP SCH (20:47)
[2019-02-21 20:52] VITALS: BP 118/80
[2019-02-21] MEDS: SENNOSIDES 8.6 MG TABLET GT SCH (21:09)
[2019-02-22] MEDS: BACLOFEN (10 MG) 10 MG TABLET GT SCH ×4 (00:03→17:50)
[2019-02-22] MEDS: BLOOD SUGAR DIAGNOSTIC 1 EACH STRIP IN SCH ×4 (00:03→17:50)
[2019-02-22] MEDS: SIMETHICONE SUSP 40 MG/0.6 ML BOTTLE PO SCH ×4 (00:04→17:51)
[2019-02-22] MEDS: INSULIN REGULAR, HUMAN 100 UNIT/ML 3 ML VIAL SQ PRN ×2 (00:05→05:21)
--- NOTE | 2019-02-22 00:10 | NUR ---
RT NOTE Pt rec'd on [facility] vent on AC mode. No resp distress or sob noted. Trach is patent and secured. Sx'd thick mod amt of pale yellow secretions. Alarms are set and audible. Vent plugged into red outlet. Ambu bag bedside. Will continue to monitor. Addendum: 02/22/19 at 0010 by YOVANA DE LA GARZA RT Amended: Links added.
[2019-02-22] MEDS: ALBUTEROL FS 2.5 MG/3 ML VIAL.NEB IH SCH ×4 (00:31→19:40)
[2019-02-22] MEDS: IPRATROPIUM NEB FS 0.5 MG/2.5 ML AMPUL.NEB IH SCH ×4 (00:31→19:40)
[2019-02-22] MEDS: ERYTHROMYCIN 250 MG in IV NS 0.9% 100 ML IV SCH ×3 (05:00→21:00)
[2019-02-22] MEDS: MEROPENEM 1 G in IV NS 0.9% 100 ML IV SCH ×3 (05:00→21:00)
[2019-02-22] MEDS: OMEPRAZOLE 20 MG CAPSULE.DR GT SCH (05:20)
[2019-02-22 07:02] LABS: BASOPHILS % (AUTO) 0.2 % (0.0-2.0); EOSINOPHILS % (AUTO) 7.5 % (0.0-6.0); HEMATOCRIT 31 % (39-51); HEMOGLOBIN 10.5 g/dL (13.5-17.5); LYMPHOCYTES % (AUTO) 23.4 % (20.0-44.0); MEAN CORPUSCULAR HGB CONC 34 g/dl (31.0-36.0); MEAN CORPUSCULAR VOLUME 96 fL (80-96); MONOCYTES # (AUTO) 0.6 /CMM (0.1-1.30); MONOCYTES % (AUTO) 12.5 % (2.0-12.0); NEUTROPHILS # (AUTO) 2.5 /CMM (1.8-8.9); NEUTROPHILS % (AUTO) 56.4 % (43.0-81.0); PLATELET COUNT (AUTO) 180 /CMM (150-450); RED BLOOD CELL COUNT(AUTO) 3.22 MIL/uL (4.5-6.0); WHITE BLOOD COUNT (AUTO) 4.4 K/uL (4.3-11.0)
[2019-02-22 07:12] LABS: CALCIUM, SERUM 8.4 mg/dL (8.5-10.1); CREATININE 0.7 mg/dL (0.6-1.3); PHOSPHORUS 2.3 mg/dL (2.5-4.9); POTASSIUM 3.5 mmol/L (3.5-5.1)
--- NOTE | 2019-02-22 08:30 | NUR ---
Pt seen by Dr Ybarra. Informed him that pt started on TPN yesterday, pt still having fevers.
[2019-02-22] MEDS: HYDROGEN PEROXIDE 480 ML BOTTLE TP SCH ×2 (09:00→21:12)
[2019-02-22] MEDS: DOCUSATE SODIUM LIQ 100 MG/10 ML UDC GT SCH ×2 (09:28→17:49)
[2019-02-22] MEDS: FERROUS SULFATE UDC 300 MG/5 ML UDC GT SCH (09:29)
[2019-02-22] MEDS: TOPIRAMATE 25 MG TABLET GT SCH ×2 (09:29→20:38)
[2019-02-22] MEDS: ZINC SULFATE 220 MG CAPSULE GT SCH (09:29)
[2019-02-22] MEDS: LACTOBACILLUS RHAMNOSUS GG 1 EACH CAP.SPRINK GT SCH ×2 (09:29→17:50)
[2019-02-22] MEDS: CHLORHEXIDINE GLUCONATE 15 ML UDC MM SCH ×2 (09:29→20:44)
[2019-02-22] MEDS: HYDROCODONE/APAP 5/325MG 1 EACH TABLET GT SCH ×2 (09:29→20:39)
[2019-02-22] MEDS: BENZOYL PEROXIDE TP SCH ×2 (09:29→17:50)
[2019-02-22] MEDS: TIZANIDINE HCL 4 MG TABLET GT SCH ×2 (09:29→20:38)
[2019-02-22] MEDS: LINEZOLID 600 MG TABLET GT SCH (09:29)
[2019-02-22] MEDS: LEVETIRACETAM SOL (5 ML) 100 MG/ML UDC GT SCH ×2 (09:29→20:44)
[2019-02-22] MEDS: PROSOURCE / PROSTAT (PYXIS) 30 ML UDC GT SCH ×3 (09:29→17:50)
[2019-02-22] MEDS: CRANBERRY D MANNOSE TP SCH (09:29)
[2019-02-22] MEDS: NYSTATIN/TRIAMCIN 15 GM CREAM 15 GM TUBE TP SCH ×2 (09:32→20:44)
[2019-02-22] MEDS: THERAHONEY GEL 1.5 OZ TUBE TP SCH ×2 (09:32→20:44)
[2019-02-22] MEDS: CLOTRIMAZOLE 1% 15 GM TUBE TP SCH ×2 (09:32→20:44)
[2019-02-22] MEDS: METOPROLOL TARTRATE 25 MG TABLET GT SCH ×2 (09:34→20:41)
--- NOTE | 2019-02-22 11:08 | NUR ---
Called Dr Dawn. Informed him that authorization for cystoscopy has been received from pt's insurance. He said he will schedule the procedure.
[2019-02-22 11:23] VITALS: BP 150/85
[2019-02-22] MEDS ORDERED: TPN BAG #3 IV PRN ×4 (14:30)
[2019-02-22] MEDS ORDERED: TPN BAG #2 IV PRN ×6 (14:30)
--- NOTE | 2019-02-22 14:50 | NUR ---
Received order to increase TPN rate to 80 mL/hr and DC D5W with 20 mEq KCL IV fluid. Also received order to give Lipids starting at 1800 today. Notified pt's mother.
[2019-02-22] MEDS: FAT EMULSION 20% 500 ML in PREMIX 1 EA IV SCH (18:18)
--- NOTE | 2019-02-22 18:38 | NUR ---
Seen by DENNIS Marquez. She ordered KUB for tomorrow. No vomiting noted this shift. Gastric residual from GT suction 300 mL of clear liquid with reddish to brownish clots. Stool OB negative. DENNIS Villar said it might be from some ulceration.
[2019-02-22 20:14] VITALS: BP 109/75
[2019-02-22] MEDS: MULTIVITAMINS,THERAGRAN 1 UDTAB TABLET GT SCH (20:42)
[2019-02-22] MEDS: SENNOSIDES 8.6 MG TABLET GT SCH (21:33)
--- NOTE | 2019-02-22 21:35 | NUR ---
PT RECEIVE STABLE ON MV, SETTINGS ARE AC 12 500 +[address] 40% FIO2, ALARMS ARE ON AND AUDIBLE, SPARE TRACH AND LUCIA BAG IS AT BEDSIDE, TRACH PATENT AND SECURED WILL CONTINUE TO MONITOR Addendum: 02/22/19 at 2136 by AMANDA GALLO RT Amended: Links added.
[2019-02-23] MEDS: BACLOFEN (10 MG) 10 MG TABLET GT SCH ×5 (00:33→23:56)
[2019-02-23] MEDS: SIMETHICONE SUSP 40 MG/0.6 ML BOTTLE PO SCH ×5 (00:34→23:56)
[2019-02-23] MEDS: INSULIN REGULAR, HUMAN 100 UNIT/ML 3 ML VIAL SQ PRN ×3 (00:34→23:57)
[2019-02-23] MEDS: BLOOD SUGAR DIAGNOSTIC 1 EACH STRIP IN SCH ×5 (00:34→23:56)
[2019-02-23] MEDS: ALBUTEROL FS 2.5 MG/3 ML VIAL.NEB IH SCH ×4 (01:43→20:13)
[2019-02-23] MEDS: IPRATROPIUM NEB FS 0.5 MG/2.5 ML AMPUL.NEB IH SCH ×4 (01:43→20:13)
[2019-02-23] MEDS: ERYTHROMYCIN 250 MG in IV NS 0.9% 100 ML IV SCH ×3 (05:00→21:06)
[2019-02-23] MEDS: MEROPENEM 1 G in IV NS 0.9% 100 ML IV SCH ×3 (05:00→21:06)
[2019-02-23] MEDS: OMEPRAZOLE 20 MG CAPSULE.DR GT SCH (05:36)
[2019-02-23 07:23] LABS: CALCIUM, SERUM 8.7 mg/dL (8.5-10.1); CREATININE 0.7 mg/dL (0.6-1.3); PHOSPHORUS 2.3 mg/dL (2.5-4.9); POTASSIUM 3.3 mmol/L (3.5-5.1)
[2019-02-23 07:44] VITALS: BP 130/98
[2019-02-23] MEDS: HYDROGEN PEROXIDE 480 ML BOTTLE TP SCH ×2 (08:11→20:13)
--- NOTE | 2019-02-23 08:45 | NUR ---
Relayed KUB result to DENNIS Marquez.
[2019-02-23] MEDS: FERROUS SULFATE UDC 300 MG/5 ML UDC GT SCH (09:05)
[2019-02-23] MEDS: METOPROLOL TARTRATE 25 MG TABLET GT SCH ×2 (09:05→20:22)
[2019-02-23] MEDS: PROSOURCE / PROSTAT (PYXIS) 30 ML UDC GT SCH ×3 (09:05→16:22)
[2019-02-23] MEDS: HYDROCODONE/APAP 5/325MG 1 EACH TABLET GT SCH ×2 (09:05→20:23)
[2019-02-23] MEDS: LEVETIRACETAM SOL (5 ML) 100 MG/ML UDC GT SCH ×2 (09:05→20:21)
[2019-02-23] MEDS: TOPIRAMATE 25 MG TABLET GT SCH ×2 (09:05→20:21)
[2019-02-23] MEDS: CHLORHEXIDINE GLUCONATE 15 ML UDC MM SCH ×2 (09:05→20:23)
[2019-02-23] MEDS: LACTOBACILLUS RHAMNOSUS GG 1 EACH CAP.SPRINK GT SCH ×2 (09:05→16:22)
[2019-02-23] MEDS: CRANBERRY D MANNOSE TP SCH (09:05)
[2019-02-23] MEDS: DOCUSATE SODIUM LIQ 100 MG/10 ML UDC GT SCH ×2 (09:05→16:22)
[2019-02-23] MEDS: TIZANIDINE HCL 4 MG TABLET GT SCH ×2 (09:05→20:22)
[2019-02-23] MEDS: ZINC SULFATE 220 MG CAPSULE GT SCH (09:05)
[2019-02-23] MEDS: BENZOYL PEROXIDE TP SCH ×2 (09:06→16:22)
[2019-02-23] MEDS: CLOTRIMAZOLE 1% 15 GM TUBE TP SCH ×2 (09:06→20:23)
[2019-02-23] MEDS: NYSTATIN/TRIAMCIN 15 GM CREAM 15 GM TUBE TP SCH ×2 (09:06→20:23)
[2019-02-23] MEDS: THERAHONEY GEL 1.5 OZ TUBE TP SCH ×2 (09:06→20:23)
--- NOTE | 2019-02-23 10:30 | NUR ---
Seen by Dr Warren. Relayed lab results to him. He ordered KCL replacement. According to pharmacy, they will adjust pt's TPN ( for K3.3). Notified Dr Warren and he said it is fine.
--- NOTE | 2019-02-23 11:35 | NUR ---
Left message for CONSTRUCTION DRIVER Aurea Marquez if she wanted to resume Reglan for pt. Pt was on Reglan but it was held since pt was on Zyvox (drug interaction). Pt completed Zyvox yesterday.
[2019-02-23] MEDS ORDERED: MAGNESIUM HYDROXIDE 30 ML UDC PO PRN (16:00)
--- NOTE | 2019-02-23 16:55 | NUR ---
Received order to DC Milk of Magnesia.
--- NOTE | 2019-02-23 18:32 | NUR ---
Seen by REPORT CHECKER Aurea Marquez. She said she saw pt's father and spoke with him regarding pt's condition and possible plan to place a J-tube if ileus does not improve. She said the Erythromycin should help reverse the ileus.
[2019-02-23 20:17] VITALS: BP 138/94
[2019-02-23] MEDS: MULTIVITAMINS,THERAGRAN 1 UDTAB TABLET GT SCH (20:23)
--- NOTE | 2019-02-23 20:29 | NUR ---
PT RCVD TRACH'D ON MECHANICAL VENT WITH CHARTED SETTINGS. PT ANIKA TX WELL. SX DONE. PT TRACH IS PATENT AND SECURE. VENT ALARMS APPEAR TO BE FUNCTIONING PROPERLY. VENT PLUGGED INTO RED OUTLET. AMBU BAG AT BEDSIDE. NO SOB NOTED. Addendum: 02/23/19 at 2030 by RUBA OSPINA RT Amended: Links added.
[2019-02-23] MEDS ORDERED: TPN #4 IV PRN ×6 (21:00)
--- NOTE | 2019-02-23 21:03 | NUR ---
RN NOTES Noted with episode of vomiting x1. Large amount of mucous noted. Intermittent suction on hold at this time d/t medication administration given earlier by primary nurse. Zofran 4mg IVP given as ordered. Will continue to monitor closely.
[2019-02-23] MEDS: SENNOSIDES 8.6 MG TABLET GT SCH (22:00)
[2019-02-24] MEDS: ALBUTEROL FS 2.5 MG/3 ML VIAL.NEB IH SCH ×4 (01:08→19:48)
[2019-02-24] MEDS: IPRATROPIUM NEB FS 0.5 MG/2.5 ML AMPUL.NEB IH SCH ×4 (01:08→19:48)
[2019-02-24] MEDS: ERYTHROMYCIN 250 MG in IV NS 0.9% 100 ML IV SCH ×3 (05:00→21:28)
[2019-02-24] MEDS: MEROPENEM 1 G in IV NS 0.9% 100 ML IV SCH ×3 (05:00→21:29)
[2019-02-24] MEDS: OMEPRAZOLE 20 MG CAPSULE.DR GT SCH (05:21)
[2019-02-24] MEDS: BACLOFEN (10 MG) 10 MG TABLET GT SCH ×3 (05:21→17:34)
[2019-02-24] MEDS: SIMETHICONE SUSP 40 MG/0.6 ML BOTTLE PO SCH ×3 (05:22→17:58)
[2019-02-24] MEDS: BLOOD SUGAR DIAGNOSTIC 1 EACH STRIP IN SCH ×3 (05:22→17:56)
[2019-02-24] MEDS: INSULIN REGULAR, HUMAN 100 UNIT/ML 3 ML VIAL SQ PRN (05:23)
[2019-02-24 08:37] LABS: CALCIUM, SERUM 8.9 mg/dL (8.5-10.1); CREATININE 0.6 mg/dL (0.6-1.3); PHOSPHORUS 2.2 mg/dL (2.5-4.9); POTASSIUM 3.6 mmol/L (3.5-5.1)
[2019-02-24] MEDS: THERAHONEY GEL 1.5 OZ TUBE TP SCH ×2 (09:00→20:36)
[2019-02-24] MEDS: NYSTATIN/TRIAMCIN 15 GM CREAM 15 GM TUBE TP SCH (09:00)
[2019-02-24] MEDS ORDERED: TPN BAG 5 IV PRN ×4 (09:00)
[2019-02-24] MEDS: CLOTRIMAZOLE 1% 15 GM TUBE TP SCH ×2 (09:00→20:36)
[2019-02-24] MEDS: BENZOYL PEROXIDE TP SCH ×2 (09:00→17:34)
[2019-02-24] MEDS: LEVETIRACETAM SOL (5 ML) 100 MG/ML UDC GT SCH ×2 (09:58→20:31)
[2019-02-24] MEDS: DOCUSATE SODIUM LIQ 100 MG/10 ML UDC GT SCH ×2 (09:58→17:34)
[2019-02-24] MEDS: LACTOBACILLUS RHAMNOSUS GG 1 EACH CAP.SPRINK GT SCH ×2 (09:58→17:34)
[2019-02-24] MEDS: FERROUS SULFATE UDC 300 MG/5 ML UDC GT SCH (09:58)
[2019-02-24] MEDS: METOPROLOL TARTRATE 25 MG TABLET GT SCH ×2 (09:59→20:35)
[2019-02-24] MEDS: ZINC SULFATE 220 MG CAPSULE GT SCH (09:59)
[2019-02-24] MEDS: HYDROCODONE/APAP 5/325MG 1 EACH TABLET GT SCH ×2 (09:59→20:34)
[2019-02-24] MEDS: CHLORHEXIDINE GLUCONATE 15 ML UDC MM SCH ×2 (09:59→20:36)
[2019-02-24] MEDS: TOPIRAMATE 25 MG TABLET GT SCH ×2 (09:59→20:33)
[2019-02-24] MEDS: PROSOURCE / PROSTAT (PYXIS) 30 ML UDC GT SCH ×3 (09:59→17:34)
[2019-02-24] MEDS: TIZANIDINE HCL 4 MG TABLET GT SCH ×2 (09:59→20:34)
[2019-02-24] MEDS: CRANBERRY D MANNOSE TP SCH (09:59)
[2019-02-24 11:50] VITALS: BP 112/79
--- NOTE | 2019-02-24 12:10 | NUR ---
Seen and examined by Dr. Ybarra and made him aware that patient still having moderate-large amount of gastric drainage from low intermittent suctioning, bloody. According to Dr. Ybarra, she will call SANDRA Bhat regarding plan for resident. No new order given.
[2019-02-24] MEDS: HYDROGEN PEROXIDE 480 ML BOTTLE TP SCH ×2 (12:54→21:45)
[2019-02-24] MEDS ORDERED: TPN IV PRN ×10 (15:30)
--- NOTE | 2019-02-24 17:11 | NUR ---
Resident's father at bedside. made aware that Dr. Ybarra was in this AM said that he will speak with OTHER SALES SUPPORT WORKER Aurea Marquez regarding plan for feeding. Appreciated the update.
[2019-02-24] MEDS: FAT EMULSION 20% 500 ML in PREMIX 1 EA IV SCH (18:19)
[2019-02-24 19:53] VITALS: BP 128/83
[2019-02-24] MEDS ORDERED: IOHEXOL-300 100 ML VIAL IV ONE (20:29)
[2019-02-24] MEDS: MULTIVITAMINS,THERAGRAN 1 UDTAB TABLET GT SCH (20:32)
[2019-02-24] MEDS: SENNOSIDES 8.6 MG TABLET GT SCH (21:44)
--- NOTE | 2019-02-24 21:56 | NUR ---
PT RECEIVE STABLE ON MV, SETTINGS ARE AC 12 500 +5 AT 40%, ALARMS ARE ON AND AUDIBLE, SPARE TRACH AND AMBU BAG IS AT BEDSIDE, TRACH PATENT AND SECURED, VENT IS PLUG IN RED OUTLET. WILL CONTINUE TO MONITOR Addendum: 02/24/19 at 2158 by AMANDA GALLO RT Amended: Links added.
[2019-02-25] MEDS: SIMETHICONE SUSP 40 MG/0.6 ML BOTTLE PO SCH ×5 (00:05→23:57)
[2019-02-25] MEDS: BLOOD SUGAR DIAGNOSTIC 1 EACH STRIP IN SCH ×5 (00:05→23:57)
[2019-02-25] MEDS: BACLOFEN (10 MG) 10 MG TABLET GT SCH ×5 (00:05→23:57)
[2019-02-25] MEDS: INSULIN REGULAR, HUMAN 100 UNIT/ML 3 ML VIAL SQ PRN ×5 (00:06→23:58)
[2019-02-25] MEDS: IPRATROPIUM NEB FS 0.5 MG/2.5 ML AMPUL.NEB IH SCH ×4 (01:11→20:23)
[2019-02-25] MEDS: ALBUTEROL FS 2.5 MG/3 ML VIAL.NEB IH SCH ×4 (01:11→20:22)
[2019-02-25] MEDS: ERYTHROMYCIN 250 MG in IV NS 0.9% 100 ML IV SCH ×3 (04:54→21:45)
[2019-02-25] MEDS: MEROPENEM 1 G in IV NS 0.9% 100 ML IV SCH ×3 (04:55→21:06)
[2019-02-25] MEDS: OMEPRAZOLE 20 MG CAPSULE.DR GT SCH (05:22)
[2019-02-25] MEDS: HYDROGEN PEROXIDE 480 ML BOTTLE TP SCH ×2 (08:07→20:23)
[2019-02-25 08:16] VITALS: BP 129/74
[2019-02-25] MEDS: CLOTRIMAZOLE 1% 15 GM TUBE TP SCH ×2 (09:00→21:29)
[2019-02-25] MEDS: THERAHONEY GEL 1.5 OZ TUBE TP SCH ×2 (09:00→21:29)
[2019-02-25] MEDS: BENZOYL PEROXIDE TP SCH ×2 (09:00→17:00)
[2019-02-25 09:01] LABS: CALCIUM, SERUM 8.9 mg/dL (8.5-10.1); CREATININE 0.6 mg/dL (0.6-1.3); MAGNESIUM 1.9 mg/dL (1.8-2.4); PHOSPHORUS 2.5 mg/dL (2.5-4.9); POTASSIUM 3.4 mmol/L (3.5-5.1)
[2019-02-25] MEDS: LACTOBACILLUS RHAMNOSUS GG 1 EACH CAP.SPRINK GT SCH ×2 (09:52→17:56)
[2019-02-25] MEDS: LEVETIRACETAM SOL (5 ML) 100 MG/ML UDC GT SCH ×2 (09:52→20:50)
[2019-02-25] MEDS: TIZANIDINE HCL 4 MG TABLET GT SCH ×2 (09:53→20:51)
[2019-02-25] MEDS: METOPROLOL TARTRATE 25 MG TABLET GT SCH ×2 (09:53→20:51)
[2019-02-25] MEDS: CHLORHEXIDINE GLUCONATE 15 ML UDC MM SCH ×2 (09:53→21:29)
[2019-02-25] MEDS: TOPIRAMATE 25 MG TABLET GT SCH ×2 (09:53→20:51)
[2019-02-25] MEDS: HYDROCODONE/APAP 5/325MG 1 EACH TABLET GT SCH ×2 (09:53→20:51)
[2019-02-25] MEDS: CRANBERRY D MANNOSE TP SCH (09:56)
[2019-02-25] MEDS: PROSOURCE / PROSTAT (PYXIS) 30 ML UDC GT SCH ×3 (09:56→17:56)
[2019-02-25] MEDS: DOCUSATE SODIUM LIQ 100 MG/10 ML UDC GT SCH ×2 (09:56→17:56)
[2019-02-25] MEDS: ZINC SULFATE 220 MG CAPSULE GT SCH (09:56)
[2019-02-25] MEDS: FERROUS SULFATE UDC 300 MG/5 ML UDC GT SCH (09:58)
[2019-02-25] MEDS ORDERED: TPN BAG #7 IV PRN ×4 (11:25)
[2019-02-25] MEDS ORDERED: TPN BAG #8 IV PRN ×6 (11:30)
[2019-02-25] MEDS ORDERED: TPN BAG#7 IV PRN ×4 (11:37)
--- NOTE | 2019-02-25 15:00 | NUR ---
Relayed CT abdomen pelvis result to DENNIS Marquez. No vomiting has been noted during this shift.
[2019-02-25 20:22] VITALS: BP 111/73
--- NOTE | 2019-02-25 20:24 | NUR ---
RECEIVED TRACH PT ON [facility] VENT WITH NOTED SETTINGS. TRACH IS PATENT AND SECURED. KENO WRITER/RUNNER DONE. Q6 BREATHING TX GIVEN WITH NO ADVERSE REACTION NOTED. SX DONE PRN. VENT PLUGGED INTO RED OUTLET. ALARMS ON AND AUDIBLE. AMBU BAG @ BEDSIDE. NO RESP DISTRESS AT THIS TIME. WILL CONT TO MONITOR PT.
[2019-02-25] MEDS: MULTIVITAMINS,THERAGRAN 1 UDTAB TABLET GT SCH (20:51)
[2019-02-25] MEDS: SENNOSIDES 8.6 MG TABLET GT SCH (21:29)
[2019-02-26] MEDS: ALBUTEROL FS 2.5 MG/3 ML VIAL.NEB IH SCH ×4 (02:02→20:13)
[2019-02-26] MEDS: IPRATROPIUM NEB FS 0.5 MG/2.5 ML AMPUL.NEB IH SCH ×4 (02:02→20:13)
[2019-02-26] MEDS: MEROPENEM 1 G in IV NS 0.9% 100 ML IV SCH ×3 (05:05→21:00)
[2019-02-26] MEDS: ERYTHROMYCIN 250 MG in IV NS 0.9% 100 ML IV SCH ×3 (05:35→21:00)
[2019-02-26] MEDS: OMEPRAZOLE 20 MG CAPSULE.DR GT SCH (05:57)
[2019-02-26] MEDS: BLOOD SUGAR DIAGNOSTIC 1 EACH STRIP IN SCH ×4 (05:57→23:45)
[2019-02-26] MEDS: BACLOFEN (10 MG) 10 MG TABLET GT SCH ×3 (05:57→17:37)
[2019-02-26] MEDS: SIMETHICONE SUSP 40 MG/0.6 ML BOTTLE PO SCH ×3 (05:58→17:37)
[2019-02-26] MEDS: INSULIN REGULAR, HUMAN 100 UNIT/ML 3 ML VIAL SQ PRN ×4 (06:00→23:45)
[2019-02-26 07:40] LABS: CALCIUM, SERUM 8.9 mg/dL (8.5-10.1); CREATININE 0.6 mg/dL (0.6-1.3); MAGNESIUM 1.8 mg/dL (1.8-2.4); PHOSPHORUS 2.4 mg/dL (2.5-4.9)
--- NOTE | 2019-02-26 08:00 | NUR ---
Notified Dr. Ybarra of overall condition of the patient and to review CT scan of abdomen/pelvis result. MD also made aware that drainage from GT, dark red in color in moderate to large amount. Informed MD that will follow-up with urologist, Dr. Dawn regarding plan for cystoscopy. No new order given at this time.
[2019-02-26 08:09] VITALS: BP 122/88
[2019-02-26] MEDS: HYDROGEN PEROXIDE 480 ML BOTTLE TP SCH ×2 (08:59→21:27)
--- NOTE | 2019-02-26 09:10 | NUR ---
Reported CT scan of abdomen to Dr. Warren as result impression shows "highly concerning for pneumonia" . According to Dr. Warren, this is a chronic and will not treat it as acute pneumonia. Resident has no episode of respiratory distress or discomfort, tracheal secretion whitish in color in moderate amount. NNO given at this time.
--- NOTE | 2019-02-26 09:10 | NUR ---
Placed a call to Dr. Dawn's office and spoke with Kavitha holman MD to review CT scan of abdomen result showing 4.1 mm stone within the region of the right UVJ, according to Kavitha, she will relay the information to Dr. Dawn.
--- NOTE | 2019-02-26 09:40 | NUR ---
Received a call from Kavitha from Dr. Dawn's office stating that MD would like to do a cystoscopy as soon as possible. Informed admitting to obtain authorization/renew authorization. According to Li from admitting department, she will request an extension from previously approved authorization.
[2019-02-26] MEDS: LACTOBACILLUS RHAMNOSUS GG 1 EACH CAP.SPRINK GT SCH ×2 (09:50→17:37)
[2019-02-26] MEDS: DOCUSATE SODIUM LIQ 100 MG/10 ML UDC GT SCH ×2 (09:50→17:37)
[2019-02-26] MEDS: LEVETIRACETAM SOL (5 ML) 100 MG/ML UDC GT SCH ×2 (09:51→21:46)
[2019-02-26] MEDS: METOPROLOL TARTRATE 25 MG TABLET GT SCH ×2 (09:51→21:46)
[2019-02-26] MEDS: FERROUS SULFATE UDC 300 MG/5 ML UDC GT SCH (09:51)
[2019-02-26] MEDS: HYDROCODONE/APAP 5/325MG 1 EACH TABLET GT SCH ×2 (09:52→21:47)
[2019-02-26] MEDS: PROSOURCE / PROSTAT (PYXIS) 30 ML UDC GT SCH ×3 (09:52→17:37)
[2019-02-26] MEDS: CHLORHEXIDINE GLUCONATE 15 ML UDC MM SCH ×2 (09:53→21:58)
[2019-02-26] MEDS: ZINC SULFATE 220 MG CAPSULE GT SCH (09:53)
[2019-02-26] MEDS: TOPIRAMATE 25 MG TABLET GT SCH ×2 (09:53→21:47)
[2019-02-26] MEDS: TIZANIDINE HCL 4 MG TABLET GT SCH ×2 (09:53→21:47)
[2019-02-26] MEDS: CRANBERRY D MANNOSE TP SCH (09:53)
[2019-02-26] MEDS: THERAHONEY GEL 1.5 OZ TUBE TP SCH ×2 (10:30→21:58)
[2019-02-26] MEDS: CLOTRIMAZOLE 1% 15 GM TUBE TP SCH ×2 (10:30→21:58)
--- NOTE | 2019-02-26 10:30 | NUR ---
According to Li from admitting she was able to obtain an authorization extension for the procedure until 03/02/19. Informed Kavitha from Dr. Dawn's office.
--- NOTE | 2019-02-26 15:40 | NUR ---
Received a call from Lan from surgery saying that Dr. Dawn scheduled Cystoscopy tomorrow at 0900. Resident's mother updated of patient's condition this AM and plan for Cystoscopy. She said that patient's father can sign consent.
--- NOTE | 2019-02-26 15:59 | NUR ---
ZENIA contacted the pt,'s mother, Vilma Beasley [phone] to inform her about the Family Satisfaction Survey. Per Vilma, she will fill it out upon her next visit on 03/05/19. Noted.
--- NOTE | 2019-02-26 16:03 | NUR ---
ZENIA communicated to pt.'s mother, Vilma that the next IDT meeting will take place 03/05/19 from 12:30pm-1:30pm in the activities room. Vilma stated she would be in attendance. ZENIA provided pt.'s mother, Vilma with counseling. Vilma stated to ZENIA, "I had a really hard time yesterday because my Son turned 25 years of age and is in such poor health. I can't help but feel guilty". ZENIA normalized the pt.'s feelings and informed her that guilt is on of the seven stages of grief. ZENIA validated how difficult it can be to deal with a loved one's loss of health and encouraged Vilma to seek mental health services. ZENIA informed Vilma that she can call the number on her insurance card and they can help refer her to contracted therapy providers. Vilma was grateful and state she would think about it. ZENIA informed Vilma that ZENIA can review these stages of grief with her in person next time she visits. Vilma was agreeable to plan. ZENIA encouraged the Vilma to take some time for herself this weekend. ZENIA also informed Vilma that she is welcome to call ZENIA as needed for counseling. Vilma was agreeable to plan and stated, "You are so kind, thank you".
--- NOTE | 2019-02-26 18:20 | NUR ---
Notified Dr. Sloan and TAIL RIPPER Aurea Marquez that patient has large amount of gastric drainage connected to low intermittent suction, output dark red in color. Aurea came to see and examined patient with order for CBC in AM. Per Aurea they may have to do an EGD on Friday to see what is going on with patient. Resident's father at bedside and informed of Cystoscopy schedule tomorrow and plan for EGD on Friday. Patient's father signed consent for cystoscopy.
[2019-02-26] MEDS: FAT EMULSION 20% 500 ML in PREMIX 1 EA IV SCH (18:53)
[2019-02-26] MEDS ORDERED: TPN BAG #9 IV PRN ×4 (20:00)
[2019-02-26 20:35] VITALS: BP 133/88
[2019-02-26] MEDS: PANTOPRAZOLE 40 MG VIAL IV SCH (21:00)
[2019-02-26] MEDS: MULTIVITAMINS,THERAGRAN 1 UDTAB TABLET GT SCH (21:47)
[2019-02-26] MEDS: SENNOSIDES 8.6 MG TABLET GT SCH (21:47)
--- NOTE | 2019-02-26 23:26 | NUR ---
Dr. Dawn called to confirmed cystoscopy in AM.Also made him aware of labs order in the morning.
[2019-02-27] MEDS: IPRATROPIUM NEB FS 0.5 MG/2.5 ML AMPUL.NEB IH SCH ×4 (01:58→19:52)
[2019-02-27] MEDS: ALBUTEROL FS 2.5 MG/3 ML VIAL.NEB IH SCH ×4 (01:58→19:52)
[2019-02-27] MEDS: ERYTHROMYCIN 250 MG in IV NS 0.9% 100 ML IV SCH ×3 (05:05→18:59)
[2019-02-27] MEDS: MEROPENEM 1 G in IV NS 0.9% 100 ML IV SCH ×3 (05:05→21:00)
[2019-02-27] MEDS: BACLOFEN (10 MG) 10 MG TABLET GT SCH ×5 (05:07→23:45)
[2019-02-27] MEDS: SIMETHICONE SUSP 40 MG/0.6 ML BOTTLE PO SCH ×5 (05:07→23:45)
[2019-02-27] MEDS: BLOOD SUGAR DIAGNOSTIC 1 EACH STRIP IN SCH ×4 (05:54→23:45)
[2019-02-27] MEDS: INSULIN REGULAR, HUMAN 100 UNIT/ML 3 ML VIAL SQ PRN ×2 (05:54→23:45)
[2019-02-27] MEDS ORDERED: ACETAMINOPHEN 650 MG/SUPP.RECT RC ONE (06:19)
[2019-02-27] MEDS: ACETAMINOPHEN 650 MG SUPP.RECT RC PRN (06:23)
--- NOTE | 2019-02-27 06:23 | NUR ---
Temp 101.8 Tylenol supp 650mg given rectally.Cooling measures provided.Pt still have gastric residual reddish in color @ 100ml.Patient remains NPO.Will continue to monitor.
[2019-02-27 07:03] LABS: BASOPHILS % (AUTO) 0.3 % (0.0-2.0); EOSINOPHILS % (AUTO) 6.7 % (0.0-6.0); HEMATOCRIT 31 % (39-51); HEMOGLOBIN 10.8 g/dL (13.5-17.5); LYMPHOCYTES # (AUTO) 1.3 /CMM (0.8-4.8); LYMPHOCYTES % (AUTO) 11.2 % (20.0-44.0); MEAN CORPUSCULAR HGB CONC 35 g/dl (31.0-36.0); MEAN CORPUSCULAR VOLUME 97 fL (80-96); MONOCYTES # (AUTO) 1.1 /CMM (0.1-1.30); MONOCYTES % (AUTO) 9.3 % (2.0-12.0); NEUTROPHILS # (AUTO) 8.3 /CMM (1.8-8.9); NEUTROPHILS % (AUTO) 72.5 % (43.0-81.0); PLATELET COUNT (AUTO) 302 /CMM (150-450); RED BLOOD CELL COUNT(AUTO) 3.22 MIL/uL (4.5-6.0); WHITE BLOOD COUNT (AUTO) 11.5 K/uL (4.3-11.0)
[2019-02-27 07:17] LABS: CALCIUM, SERUM 8.4 mg/dL (8.5-10.1); CREATININE 0.5 mg/dL (0.6-1.3); MAGNESIUM 1.8 mg/dL (1.8-2.4); PHOSPHORUS 2.4 mg/dL (2.5-4.9)
[2019-02-27] MEDS ORDERED: TPN BAG #10 IV PRN ×6 (08:00)
--- NOTE | 2019-02-27 08:00 | NUR ---
rn npo at this time for surgery this am.
--- NOTE | 2019-02-27 08:50 | NUR ---
ms rn went down to or for surgery,all needs attended.
[2019-02-27] MEDS: TOPIRAMATE 25 MG TABLET GT SCH ×2 (09:00→20:39)
[2019-02-27] MEDS: CRANBERRY D MANNOSE TP SCH (09:00)
[2019-02-27] MEDS: METOPROLOL TARTRATE 25 MG TABLET GT SCH ×2 (09:00→20:39)
[2019-02-27] MEDS: ZINC SULFATE 220 MG CAPSULE GT SCH (09:00)
[2019-02-27] MEDS: FERROUS SULFATE UDC 300 MG/5 ML UDC GT SCH (09:00)
[2019-02-27] MEDS: HYDROGEN PEROXIDE 480 ML BOTTLE TP SCH ×2 (09:00→21:16)
[2019-02-27] MEDS: HYDROCODONE/APAP 5/325MG 1 EACH TABLET GT SCH ×2 (09:00→21:55)
[2019-02-27] MEDS: PROSOURCE / PROSTAT (PYXIS) 30 ML UDC GT SCH ×3 (09:00→17:00)
[2019-02-27] MEDS: THERAHONEY GEL 1.5 OZ TUBE TP SCH ×2 (09:00→21:55)
[2019-02-27] MEDS: CHLORHEXIDINE GLUCONATE 15 ML UDC MM SCH ×2 (09:00→21:55)
[2019-02-27] MEDS: LACTOBACILLUS RHAMNOSUS GG 1 EACH CAP.SPRINK GT SCH ×2 (09:00→17:00)
[2019-02-27] MEDS: LEVETIRACETAM SOL (5 ML) 100 MG/ML UDC GT SCH ×2 (09:00→20:38)
[2019-02-27] MEDS: CLOTRIMAZOLE 1% 15 GM TUBE TP SCH ×2 (09:00→21:55)
[2019-02-27] MEDS: PANTOPRAZOLE 40 MG VIAL IV SCH ×2 (09:00→21:55)
[2019-02-27] MEDS: TIZANIDINE HCL 4 MG TABLET GT SCH ×2 (09:00→20:39)
[2019-02-27] MEDS: DOCUSATE SODIUM LIQ 100 MG/10 ML UDC GT SCH ×2 (09:00→17:00)
[2019-02-27 10:29] VITALS: BP 118/76
--- NOTE | 2019-02-27 11:13 | NUR ---
Left a message to Dr. Ybarra informing that patient went for cystoscopy and was transferred to [facility] medical surgical floor afterwards. Resident's mother informed as well of patient's transfer to [facility] floor (room 304). Appreciated the call.
--- NOTE | 2019-02-27 11:20 | NUR ---
ms rn patient did not came back, went to [facility], report given to my,rn.
[2019-02-27] MEDS ORDERED: ACET650S11 RC ×2 (11:38)
[2019-02-27] MEDS ORDERED: CLOT15CR35 TP (11:38)
[2019-02-27] MEDS ORDERED: AMIN30LI2 GT (11:38)
[2019-02-27] MEDS ORDERED: COCO120O TP (11:38)
[2019-02-27] MEDS ORDERED: PANT40VI IV (11:38)
[2019-02-27] MEDS ORDERED: TPN ADD IV (11:38)
[2019-02-27] MEDS ORDERED: MAG30ORA GT (11:38)
[2019-02-27] MEDS ORDERED: SIME80TA15 GT (11:38)
[2019-02-27] MEDS ORDERED: THERAHONEY TD (11:38)
[2019-02-27] MEDS ORDERED: HYDR1SOL TP (11:38)
[2019-02-27] MEDS ORDERED: CRANBERRY D MANNOSE GT (11:38)
[2019-02-27] MEDS ORDERED: ONDA4VIA52 IVP (11:38)
[2019-02-27] MEDS ORDERED: BACL10TA GT (11:38)
[2019-02-27] MEDS ORDERED: HYDR-3974 GT (11:38)
[2019-02-27] MEDS ORDERED: MULT-24 GT (11:38)
[2019-02-27] MEDS ORDERED: FAT250EM4 IV (11:38)
[2019-02-27] MEDS ORDERED: INSU100V3 SQ (11:38)
[2019-02-27] MEDS ORDERED: MERO1VIA IV (11:38)
[2019-02-27] MEDS ORDERED: [UNRECOGNIZED DRUG - CODE] IV (11:38)
[2019-02-27] MEDS ORDERED: BLOO-668 IN (11:38)
[2019-02-27] MEDS ORDERED: LACT1CAP72 GT (11:38)
[2019-02-27] MEDS ORDERED: FERR300L GT (11:38)
[2019-02-27] MEDS ORDERED: DEXT50DI8 IV (11:38)
--- NOTE | 2019-02-27 16:14 | NUR ---
Received a call from nursing and drying supervisor cooking casing saying that patient will be returning back to subacute per Dr. Dawn.
--- NOTE | 2019-02-27 17:15 | NUR ---
ms rn received patient from 3rd floor rn, patient sleeping,w/ enamorado cath draining w/ yellowish urine,clear,g tube reconnected to intermittent suction, functioning well w/ bloody output,pm meds were given in third floor per report, will monitor patient.
--- NOTE | 2019-02-27 17:34 | NUR ---
s rn on bed, no distress noted.
--- NOTE | 2019-02-27 18:21 | NUR ---
Left a message to resident's mother and Dr. Ybarra notifying them of patient's return to subacute. S/P cystoscopy with urethral dilation and insertion of urinary catheter. Urine output yellow, no hematuria. Patient non verbal, eyes open and not able to follow command. V/S stable, connected to ventilator with no s/s of acute respiratory distress. Continue on TPN, IV ATB Merrem, IV Erythromycin and other medication prior to procedure.
[2019-02-27] MEDS ORDERED: TPN IV PRN ×5 (20:00)
[2019-02-27 20:38] VITALS: BP 114/92
[2019-02-27] MEDS: MULTIVITAMINS,THERAGRAN 1 UDTAB TABLET GT SCH (20:39)
[2019-02-27] MEDS: ACETAMINOPHEN 650 MG/20 ML UDC- SA PATIENTS-FEVER ONLY GT PRN (20:40)
[2019-02-27] MEDS: SENNOSIDES 8.6 MG TABLET GT SCH (22:25)
[2019-02-28] MEDS: IPRATROPIUM NEB FS 0.5 MG/2.5 ML AMPUL.NEB IH SCH ×4 (01:37→19:48)
[2019-02-28] MEDS: ALBUTEROL FS 2.5 MG/3 ML VIAL.NEB IH SCH ×4 (01:37→19:48)
[2019-02-28] MEDS: ERYTHROMYCIN 250 MG in IV NS 0.9% 100 ML IV SCH ×3 (03:00→18:45)
[2019-02-28] MEDS: MEROPENEM 1 G in IV NS 0.9% 100 ML IV SCH ×3 (04:48→21:56)
[2019-02-28] MEDS: BLOOD SUGAR DIAGNOSTIC 1 EACH STRIP IN SCH ×3 (06:44→17:41)
[2019-02-28] MEDS: BACLOFEN (10 MG) 10 MG TABLET GT SCH ×3 (06:44→17:41)
[2019-02-28] MEDS: SIMETHICONE SUSP 40 MG/0.6 ML BOTTLE PO SCH ×3 (06:44→17:42)
[2019-02-28] MEDS: INSULIN REGULAR, HUMAN 100 UNIT/ML 3 ML VIAL SQ PRN (06:45)
[2019-02-28 07:34] VITALS: BP 129/83
[2019-02-28 08:46] LABS: CALCIUM, SERUM 8.3 mg/dL (8.5-10.1); CREATININE 0.5 mg/dL (0.6-1.3); MAGNESIUM 1.7 mg/dL (1.8-2.4); PHOSPHORUS 2.1 mg/dL (2.5-4.9); POTASSIUM 4.1 mmol/L (3.5-5.1)
[2019-02-28] MEDS ORDERED: TPN BAG #12 IV PRN ×7 (09:00)
[2019-02-28] MEDS: HYDROGEN PEROXIDE 480 ML BOTTLE TP SCH ×2 (09:00→21:07)
[2019-02-28] MEDS: PANTOPRAZOLE 40 MG VIAL IV SCH ×2 (09:00→21:56)
[2019-02-28] MEDS: FERROUS SULFATE UDC 300 MG/5 ML UDC GT SCH (09:48)
[2019-02-28] MEDS: DOCUSATE SODIUM LIQ 100 MG/10 ML UDC GT SCH ×2 (09:48→17:41)
[2019-02-28] MEDS: METOPROLOL TARTRATE 25 MG TABLET GT SCH ×2 (09:48→20:43)
[2019-02-28] MEDS: LEVETIRACETAM SOL (5 ML) 100 MG/ML UDC GT SCH ×2 (09:48→20:41)
[2019-02-28] MEDS: LACTOBACILLUS RHAMNOSUS GG 1 EACH CAP.SPRINK GT SCH ×2 (09:48→17:41)
[2019-02-28] MEDS: PROSOURCE / PROSTAT (PYXIS) 30 ML UDC GT SCH ×3 (09:49→17:41)
[2019-02-28] MEDS: ZINC SULFATE 220 MG CAPSULE GT SCH (09:49)
[2019-02-28] MEDS: CHLORHEXIDINE GLUCONATE 15 ML UDC MM SCH ×2 (09:49→20:46)
[2019-02-28] MEDS: CLOTRIMAZOLE 1% 15 GM TUBE TP SCH ×2 (09:49→20:46)
[2019-02-28] MEDS: CRANBERRY D MANNOSE TP SCH (09:49)
[2019-02-28] MEDS: THERAHONEY GEL 1.5 OZ TUBE TP SCH ×2 (09:49→20:46)
[2019-02-28] MEDS: TOPIRAMATE 25 MG TABLET GT SCH ×2 (09:49→20:45)
[2019-02-28] MEDS: HYDROCODONE/APAP 5/325MG 1 EACH TABLET GT SCH ×2 (09:49→20:43)
[2019-02-28] MEDS: TIZANIDINE HCL 4 MG TABLET GT SCH ×2 (09:49→20:45)
--- NOTE | 2019-02-28 15:56 | NUR ---
PT RCVD TRACH'D ON MECHANICAL VENT WITH CHARTED SETTINGS. PT ANIKA TX WELL. SX DONE. PT TRACH IS PATENT AND SECURE. VENT ALARMS APPEAR TO BE FUNCTIONING PROPERLY. VENT PLUGGED INTO RED OUTLET. AMBU BAG AT BEDSIDE. NO SOB NOTED.
--- NOTE | 2019-02-28 16:35 | NUR ---
Seen and examined by Aurea Marquez NP with new order. For EGD daisy 03/01/19. Consent signed by father. Still noted with dark brown gastric output. Cont on low intermittent suction. Temp 101, cooling measures and PRN Tylenol given. Will continue to monitor.
[2019-02-28] MEDS: ACETAMINOPHEN 650 MG/20 ML UDC- SA PATIENTS-FEVER ONLY GT PRN (17:44)
[2019-02-28] MEDS: FAT EMULSION 20% 500 ML in PREMIX 1 EA IV SCH (18:44)
[2019-02-28] MEDS ORDERED: TPN BAG #13 IV PRN ×6 (20:00)
[2019-02-28 20:39] VITALS: BP 148/98
[2019-02-28] MEDS: MULTIVITAMINS,THERAGRAN 1 UDTAB TABLET GT SCH (20:44)
[2019-02-28] MEDS: SENNOSIDES 8.6 MG TABLET GT SCH (22:39)
[2019-03-01] MEDS: BACLOFEN (10 MG) 10 MG TABLET GT SCH ×4 (00:42→17:21)
[2019-03-01] MEDS: INSULIN REGULAR, HUMAN 100 UNIT/ML 3 ML VIAL SQ PRN ×2 (00:43→06:03)
[2019-03-01] MEDS: SIMETHICONE SUSP 40 MG/0.6 ML BOTTLE PO SCH ×4 (00:43→17:21)
[2019-03-01] MEDS: BLOOD SUGAR DIAGNOSTIC 1 EACH STRIP IN SCH ×4 (00:43→17:21)
[2019-03-01] MEDS: IPRATROPIUM NEB FS 0.5 MG/2.5 ML AMPUL.NEB IH SCH ×4 (01:53→19:05)
[2019-03-01] MEDS: ALBUTEROL FS 2.5 MG/3 ML VIAL.NEB IH SCH ×4 (01:53→19:05)
[2019-03-01] MEDS: ERYTHROMYCIN 250 MG in IV NS 0.9% 100 ML IV SCH ×3 (03:00→19:24)
[2019-03-01] MEDS: MEROPENEM 1 G in IV NS 0.9% 100 ML IV SCH ×3 (05:00→20:38)
[2019-03-01] MEDS ORDERED: TPN BAG #14 IV PRN ×7 (05:00)
--- NOTE | 2019-03-01 05:41 | NUR ---
RT Patient was received on continuous vent support on noted vent settings.Alarms are set and audible.Breathing treatment was given,tracheal suctioning was done. Airway patent and secured. Patient stable throughout the shift. Will continue to monitor. Addendum: 03/01/19 at 0542 by TERRY GONZALEZ RT Amended: Links added.
[2019-03-01 07:32] LABS: CREATININE 0.5 mg/dL (0.6-1.3); MAGNESIUM 2.1 mg/dL (1.8-2.4); PHOSPHORUS 2.1 mg/dL (2.5-4.9); POTASSIUM 4.2 mmol/L (3.5-5.1)
[2019-03-01 07:57] VITALS: BP 125/75
[2019-03-01] MEDS: HYDROGEN PEROXIDE 480 ML BOTTLE TP SCH ×2 (08:09→21:04)
[2019-03-01] MEDS: PANTOPRAZOLE 40 MG VIAL IV SCH ×2 (09:00→20:38)
[2019-03-01] MEDS: LACTOBACILLUS RHAMNOSUS GG 1 EACH CAP.SPRINK GT SCH ×2 (09:25→17:21)
[2019-03-01] MEDS: DOCUSATE SODIUM LIQ 100 MG/10 ML UDC GT SCH ×2 (09:25→17:21)
[2019-03-01] MEDS: FERROUS SULFATE UDC 300 MG/5 ML UDC GT SCH (09:25)
[2019-03-01] MEDS: LEVETIRACETAM SOL (5 ML) 100 MG/ML UDC GT SCH ×2 (09:25→20:30)
[2019-03-01] MEDS: HYDROCODONE/APAP 5/325MG 1 EACH TABLET GT SCH ×2 (09:29→20:31)
[2019-03-01] MEDS: TIZANIDINE HCL 4 MG TABLET GT SCH ×2 (09:29→20:32)
[2019-03-01] MEDS: CRANBERRY D MANNOSE TP SCH (09:29)
[2019-03-01] MEDS: PROSOURCE / PROSTAT (PYXIS) 30 ML UDC GT SCH ×3 (09:29→17:21)
[2019-03-01] MEDS: METOPROLOL TARTRATE 25 MG TABLET GT SCH ×2 (09:29→20:30)
[2019-03-01] MEDS: CHLORHEXIDINE GLUCONATE 15 ML UDC MM SCH ×2 (09:29→20:32)
[2019-03-01] MEDS: TOPIRAMATE 25 MG TABLET GT SCH ×2 (09:29→20:31)
[2019-03-01] MEDS: ZINC SULFATE 220 MG CAPSULE GT SCH (09:29)
[2019-03-01] MEDS: THERAHONEY GEL 1.5 OZ TUBE TP SCH ×2 (09:30→20:32)
[2019-03-01] MEDS: CLOTRIMAZOLE 1% 15 GM TUBE TP SCH ×2 (09:30→20:32)
[2019-03-01] MEDS ORDERED: TPN BAG #15 IV PRN ×5 (15:00)
[2019-03-01 20:00] VITALS: BP 120/61
[2019-03-01] MEDS: MULTIVITAMINS,THERAGRAN 1 UDTAB TABLET GT SCH (20:31)
[2019-03-01] MEDS: SENNOSIDES 8.6 MG TABLET GT SCH (21:21)
[2019-03-02] VITALS (8 sets, daily range): BP systolic 93–137; BP diastolic 56–78
[2019-03-02] MEDS: BACLOFEN (10 MG) 10 MG TABLET GT SCH ×5 (00:45→23:38)
[2019-03-02] MEDS: INSULIN REGULAR, HUMAN 100 UNIT/ML 3 ML VIAL SQ PRN ×3 (00:46→23:38)
[2019-03-02] MEDS: ALBUTEROL FS 2.5 MG/3 ML VIAL.NEB IH SCH ×5 (00:46→23:17)
[2019-03-02] MEDS: IPRATROPIUM NEB FS 0.5 MG/2.5 ML AMPUL.NEB IH SCH ×5 (00:46→23:17)
[2019-03-02] MEDS: BLOOD SUGAR DIAGNOSTIC 1 EACH STRIP IN SCH ×5 (00:46→23:38)
[2019-03-02] MEDS: SIMETHICONE SUSP 40 MG/0.6 ML BOTTLE PO SCH ×5 (00:46→23:38)
[2019-03-02] MEDS: ERYTHROMYCIN 250 MG in IV NS 0.9% 100 ML IV SCH ×3 (03:00→19:00)
[2019-03-02] MEDS: MEROPENEM 1 G in IV NS 0.9% 100 ML IV SCH ×3 (05:00→20:57)
[2019-03-02 07:54] LABS: CALCIUM, SERUM 7.7 mg/dL (8.5-10.1); CREATININE 0.6 mg/dL (0.6-1.3); MAGNESIUM 2.3 mg/dL (1.8-2.4); PHOSPHORUS 2.1 mg/dL (2.5-4.9)
--- NOTE | 2019-03-02 09:24 | NUR ---
Spoke with Franca from admitting department, when asked if patient will need a new account for EGD procedure this afternoon. According to Franca, if procedure is done at bedside, it does not need a new account but if done in OR, patient will need a need account for the procedure. Asked Lan from surgery where will they perform the procedure, he said he will call back once he clarify the information.
[2019-03-02] MEDS: DOCUSATE SODIUM LIQ 100 MG/10 ML UDC GT SCH ×2 (09:49→17:36)
[2019-03-02] MEDS: LEVETIRACETAM SOL (5 ML) 100 MG/ML UDC GT SCH ×2 (09:49→21:34)
[2019-03-02] MEDS: FERROUS SULFATE UDC 300 MG/5 ML UDC GT SCH (09:49)
[2019-03-02] MEDS: LACTOBACILLUS RHAMNOSUS GG 1 EACH CAP.SPRINK GT SCH ×2 (09:49→17:36)
[2019-03-02] MEDS: TOPIRAMATE 25 MG TABLET GT SCH ×2 (09:50→21:34)
[2019-03-02] MEDS: TIZANIDINE HCL 4 MG TABLET GT SCH ×2 (09:50→21:34)
[2019-03-02] MEDS: CHLORHEXIDINE GLUCONATE 15 ML UDC MM SCH ×2 (09:50→21:35)
[2019-03-02] MEDS: CRANBERRY D MANNOSE TP SCH (09:50)
[2019-03-02] MEDS: METOPROLOL TARTRATE 25 MG TABLET GT SCH ×2 (09:50→21:34)
[2019-03-02] MEDS: CLOTRIMAZOLE 1% 15 GM TUBE TP SCH ×2 (09:50→21:35)
[2019-03-02] MEDS: ZINC SULFATE 220 MG CAPSULE GT SCH (09:50)
[2019-03-02] MEDS: HYDROGEN PEROXIDE 480 ML BOTTLE TP SCH ×2 (09:50→21:00)
[2019-03-02] MEDS: PROSOURCE / PROSTAT (PYXIS) 30 ML UDC GT SCH ×3 (09:50→17:36)
[2019-03-02] MEDS: HYDROCODONE/APAP 5/325MG 1 EACH TABLET GT SCH ×2 (09:50→21:34)
[2019-03-02] MEDS: THERAHONEY GEL 1.5 OZ TUBE TP SCH ×2 (09:51→21:35)
[2019-03-02] MEDS ORDERED: TPN BAG #17 IV PRN ×6 (10:00)
[2019-03-02] MEDS ORDERED: TPN BAG #16 IV PRN ×8 (10:00)
[2019-03-02] MEDS: PANTOPRAZOLE 40 MG VIAL IV SCH ×2 (10:22→21:00)
[2019-03-02] MEDS: POTASSIUM CL. PREMIX PERIPHER. 50 ML IV SCH ×3 (10:24→12:55)
--- NOTE | 2019-03-02 13:00 | NUR ---
Seen and examined by Dr. Duenas, he said that patient does not need EGD, gastric drainage from low intermittent suctioning clear in color, no signs of bleeding. CBC was ordered.
[2019-03-02 13:45] LABS: BASOPHILS % (AUTO) 0.5 % (0.0-2.0); EOSINOPHILS % (AUTO) 6.2 % (0.0-6.0); LYMPHOCYTES # (AUTO) 1.1 /CMM (0.8-4.8); LYMPHOCYTES % (AUTO) 12.9 % (20.0-44.0); MEAN CORPUSCULAR HGB CONC 35 g/dl (31.0-36.0); MEAN CORPUSCULAR VOLUME 98 fL (80-96); MONOCYTES # (AUTO) 0.9 /CMM (0.1-1.30); MONOCYTES % (AUTO) 11.3 % (2.0-12.0); NEUTROPHILS # (AUTO) 5.8 /CMM (1.8-8.9); NEUTROPHILS % (AUTO) 69.1 % (43.0-81.0); PLATELET COUNT (AUTO) 217 /CMM (150-450); WHITE BLOOD COUNT (AUTO) 8.4 K/uL (4.3-11.0)
[2019-03-02 13:55] LABS: RED BLOOD CELL COUNT(AUTO) 1.87 MIL/uL (4.5-6.0)
[2019-03-02 13:56] LABS: HEMOGLOBIN 6.3 g/dL (13.5-17.5)
[2019-03-02 13:57] LABS: HEMATOCRIT 18 % (39-51)
[2019-03-02 14:12] LABS: EOSINOPHILS % (MANUAL) 5 % (0-4); LYMPHOCYTES % (MANUAL) 13 % (16-48); MONOCYTES % (MANUAL) 8 % (0-11.0); NEUTROPHILS % (MANUAL) 74 (42-76)
--- NOTE | 2019-03-02 14:20 | NUR ---
Left a message to Dr. Dr. Ybarra to call back to relay CBC result with Hgb 6.3, according to his office staff, he is currently seeing a patient and will relay the information once he is out. Awaiting for call back.
--- NOTE | 2019-03-02 14:45 | NUR ---
Received an order from Dr. Ybarra to give 2 units of PRBC, (HgB 6.3) Lasix 20 mg in between blood transfusion and repeat CBC in AM. Order carried out. Obtain consent for blood transfusion from resident's father, witnessed by two licensed nurses.
--- NOTE | 2019-03-02 15:07 | NUR ---
Spoke with Patsy from [facility] pharmacy, asked if we can use IV access (R femoral line) with TPN together with blood transfusion. She said to use femoral line for blood transfusion alone and put TPN on hold but taper down the rate. TPN rate decreased to 40 cc/hr.
[2019-03-02] MEDS ORDERED: FUROSEMIDE 20 MG TABLET GT PRN (15:30)
[2019-03-02] MEDS ORDERED: FENTANYL PF 100MCG/2ML AMPUL ONE (16:44)
--- NOTE | 2019-03-02 17:04 | NUR ---
Resident's father at bedside and made aware that patient will have blood transfusion today but as for EGD it may or may not happen today.
--- NOTE | 2019-03-02 17:41 | NUR ---
Blood transfusion, 1 unit PRBC started, no adverse reaction noted. V/S within patient's baseline. Continue to monitor for reaction. TPN's rate tapered down and put on hold while transfusing blood.
--- NOTE | 2019-03-02 18:15 | NUR ---
Spoke with Ansley from surgery to find out if EGD will be done today as scheduled, according to Ansley, Dr. Duenas will be following this patient and he will not do EGD today.
[2019-03-02] MEDS: MULTIVITAMINS,THERAGRAN 1 UDTAB TABLET GT SCH (21:34)
[2019-03-02] MEDS: SENNOSIDES 8.6 MG TABLET GT SCH (21:35)
--- NOTE | 2019-03-02 21:40 | NUR ---
RN NOTES Lasix 20mg held d/t B/P /. Will endorse to following shift to notify Dr. Ybarra.
--- NOTE | 2019-03-02 21:42 | NUR ---
RN NOTES 2nd blood transfusion, 1 unit PRBC started, no adverse reaction noted.
[2019-03-03 00:40] VITALS: BP 96/55
[2019-03-03] MEDS: FAT EMULSION 20% 500 ML in PREMIX 1 EA IV SCH (01:15)
[2019-03-03] MEDS: ERYTHROMYCIN 250 MG in IV NS 0.9% 100 ML IV SCH ×3 (03:00→18:46)
[2019-03-03] MEDS: MEROPENEM 1 G in IV NS 0.9% 100 ML IV SCH ×3 (05:00→20:54)
[2019-03-03] MEDS: SIMETHICONE SUSP 40 MG/0.6 ML BOTTLE PO SCH ×4 (06:02→23:38)
[2019-03-03] MEDS: BLOOD SUGAR DIAGNOSTIC 1 EACH STRIP IN SCH ×4 (06:02→23:38)
[2019-03-03] MEDS: BACLOFEN (10 MG) 10 MG TABLET GT SCH ×4 (06:02→23:38)
[2019-03-03] MEDS: INSULIN REGULAR, HUMAN 100 UNIT/ML 3 ML VIAL SQ PRN ×4 (06:02→23:39)
[2019-03-03 07:47] VITALS: BP 116/83
[2019-03-03] MEDS: ALBUTEROL FS 2.5 MG/3 ML VIAL.NEB IH SCH ×3 (08:17→19:47)
[2019-03-03] MEDS: IPRATROPIUM NEB FS 0.5 MG/2.5 ML AMPUL.NEB IH SCH ×3 (08:17→19:47)
[2019-03-03 08:18] LABS: CREATININE 0.6 mg/dL (0.6-1.3); MAGNESIUM 2.3 mg/dL (1.8-2.4); PHOSPHORUS 2.3 mg/dL (2.5-4.9); POTASSIUM 3.2 mmol/L (3.5-5.1)
[2019-03-03] MEDS: THERAHONEY GEL 1.5 OZ TUBE TP SCH ×2 (09:00→21:42)
[2019-03-03] MEDS: HYDROGEN PEROXIDE 480 ML BOTTLE TP SCH ×2 (09:00→19:47)
[2019-03-03] MEDS: CLOTRIMAZOLE 1% 15 GM TUBE TP SCH ×2 (09:00→21:42)
[2019-03-03] MEDS: PANTOPRAZOLE 40 MG VIAL IV SCH ×2 (09:30→20:54)
[2019-03-03 09:34] LABS: HEMOGLOBIN 9.7 g/dL (13.5-17.5)
[2019-03-03] MEDS: LEVETIRACETAM SOL (5 ML) 100 MG/ML UDC GT SCH ×2 (09:51→21:06)
[2019-03-03] MEDS: TOPIRAMATE 25 MG TABLET GT SCH ×2 (09:51→21:07)
[2019-03-03] MEDS: LACTOBACILLUS RHAMNOSUS GG 1 EACH CAP.SPRINK GT SCH ×2 (09:51→17:53)
[2019-03-03] MEDS: FERROUS SULFATE UDC 300 MG/5 ML UDC GT SCH (09:51)
[2019-03-03] MEDS: DOCUSATE SODIUM LIQ 100 MG/10 ML UDC GT SCH ×2 (09:51→17:53)
[2019-03-03] MEDS: TIZANIDINE HCL 4 MG TABLET GT SCH ×2 (09:51→21:07)
[2019-03-03] MEDS: PROSOURCE / PROSTAT (PYXIS) 30 ML UDC GT SCH ×3 (09:51→17:53)
[2019-03-03] MEDS: METOPROLOL TARTRATE 25 MG TABLET GT SCH ×2 (09:51→21:06)
[2019-03-03] MEDS: HYDROCODONE/APAP 5/325MG 1 EACH TABLET GT SCH ×2 (09:51→21:07)
[2019-03-03] MEDS: ZINC SULFATE 220 MG CAPSULE GT SCH (09:52)
[2019-03-03] MEDS: CRANBERRY D MANNOSE TP SCH (09:52)
[2019-03-03] MEDS: CHLORHEXIDINE GLUCONATE 15 ML UDC MM SCH ×2 (09:52→21:08)
--- NOTE | 2019-03-03 10:00 | NUR ---
Seen by Dr Duenas. He saw blood-tinged gastric residual (pale red) in the canister. He ordered to do daily H & H. He said that if ileus improves, pt can be restarted on G-tube feeding.
[2019-03-03] MEDS ORDERED: TPN BAG #17 IV PRN ×12 (11:12→11:13)
[2019-03-03] MEDS ORDERED: TPN BAG #18 IV PRN ×8 (11:30)
--- NOTE | 2019-03-03 12:50 | NUR ---
Notified Dr Escoto that pt has a wound on the right 5th toe. Pt's feet are usually floated and away from pressure. Dr Escoto said she will see pt tomorrow or on Friday. She ordered to apply Betadine on the wound. Informed pt's mother.
--- NOTE | 2019-03-03 13:55 | NUR ---
Informed Dr Ybarra that Lasix was held last night due to SBP in the 90s. No new order.
--- NOTE | 2019-03-03 19:49 | NUR ---
RT NOTE: RECEIVED TRACH PT ON [facility] VENT ON NOTED SETTINGS PER MD ORDERS. TRACH IS PATENT AND SECURED. TRACH CARE DONE. BUSINESS DEVELOPMENT ASSOCIATE DONE. Q6 BREATHING TX GIVEN WITH NO ADVERSE REACTION NOTED. SX DONE PRN. VENT PLUGGED INTO RED OUTLET. ALARMS ON AND AUDIBLE. KARTIKU BAG @ BEDSIDE. NO RESP DISTRESS AT THIS TIME. WILL CONT TO MONITOR PT. Addendum: 03/04/19 at 0257 by KELLY HOPE RT Amended: Links added.
[2019-03-03 20:00] VITALS: BP 131/79
[2019-03-03] MEDS: MULTIVITAMINS,THERAGRAN 1 UDTAB TABLET GT SCH (21:07)
[2019-03-03] MEDS: POVIDONE-IODINE OINT 28.4 GM TUBE TP SCH (21:08)
[2019-03-03] MEDS: SENNOSIDES 8.6 MG TABLET GT SCH (21:42)
[2019-03-04] MEDS: ALBUTEROL FS 2.5 MG/3 ML VIAL.NEB IH SCH ×4 (01:43→20:04)
[2019-03-04] MEDS: IPRATROPIUM NEB FS 0.5 MG/2.5 ML AMPUL.NEB IH SCH ×4 (01:43→20:04)
[2019-03-04] MEDS: ERYTHROMYCIN 250 MG in IV NS 0.9% 100 ML IV SCH ×3 (03:00→18:21)
[2019-03-04] MEDS: MEROPENEM 1 G in IV NS 0.9% 100 ML IV SCH ×3 (05:19→20:58)
[2019-03-04] MEDS: BLOOD SUGAR DIAGNOSTIC 1 EACH STRIP IN SCH ×3 (05:59→17:36)
[2019-03-04] MEDS: BACLOFEN (10 MG) 10 MG TABLET GT SCH ×4 (05:59→23:27)
[2019-03-04] MEDS: SIMETHICONE SUSP 40 MG/0.6 ML BOTTLE PO SCH ×4 (05:59→23:27)
[2019-03-04] MEDS: INSULIN REGULAR, HUMAN 100 UNIT/ML 3 ML VIAL SQ PRN (06:00)
[2019-03-04 07:58] VITALS: BP 122/69
[2019-03-04 08:02] LABS: CALCIUM, SERUM 8.3 mg/dL (8.5-10.1); CREATININE 0.5 mg/dL (0.6-1.3); MAGNESIUM 2.5 mg/dL (1.8-2.4); PHOSPHORUS 2.8 mg/dL (2.5-4.9); POTASSIUM 3.9 mmol/L (3.5-5.1)
[2019-03-04 08:30] LABS: HEMOGLOBIN 9.3 g/dL (13.5-17.5)
[2019-03-04] MEDS: LEVETIRACETAM SOL (5 ML) 100 MG/ML UDC GT SCH ×2 (09:00→20:58)
[2019-03-04] MEDS: HYDROGEN PEROXIDE 480 ML BOTTLE TP SCH ×2 (09:00→20:04)
[2019-03-04] MEDS: LACTOBACILLUS RHAMNOSUS GG 1 EACH CAP.SPRINK GT SCH ×2 (09:00→17:36)
[2019-03-04] MEDS: FERROUS SULFATE UDC 300 MG/5 ML UDC GT SCH (09:00)
[2019-03-04] MEDS: TOPIRAMATE 25 MG TABLET GT SCH ×2 (09:00→20:59)
[2019-03-04] MEDS: TIZANIDINE HCL 4 MG TABLET GT SCH ×2 (09:00→20:59)
[2019-03-04] MEDS: CRANBERRY D MANNOSE TP SCH (09:00)
[2019-03-04] MEDS: CHLORHEXIDINE GLUCONATE 15 ML UDC MM SCH ×2 (09:00→20:59)
[2019-03-04] MEDS: METOPROLOL TARTRATE 25 MG TABLET GT SCH ×2 (09:00→20:58)
[2019-03-04] MEDS: DOCUSATE SODIUM LIQ 100 MG/10 ML UDC GT SCH ×2 (09:00→17:36)
[2019-03-04] MEDS: PROSOURCE / PROSTAT (PYXIS) 30 ML UDC GT SCH ×3 (09:00→17:36)
[2019-03-04] MEDS: ZINC SULFATE 220 MG CAPSULE GT SCH (09:00)
[2019-03-04] MEDS: PANTOPRAZOLE 40 MG VIAL IV SCH ×2 (09:45→20:59)
[2019-03-04] MEDS ORDERED: TPN BAG #20 IV PRN ×16 (10:30)
[2019-03-04] MEDS ORDERED: TPN BAG #19 IV PRN ×6 (10:30)
[2019-03-04] MEDS: HYDROCODONE/APAP 5/325MG 1 EACH TABLET GT SCH ×2 (10:35→20:59)
--- NOTE | 2019-03-04 10:54 | NUR ---
Seen by Dr Duenas. He explained that pt will always have residuals from GT suctioning because the stomach produces 3-4 liters of secretions in a day. He saw blood-tinged residual in the canister. He ordered to give Reglan 10 mg via GT q 6 hours. He is aware that pt is on Erythromycin. Also received order to do KUB tomorrow. He said if ileus improves, pt may be started on G-tube feeding in 1 to 2 days. Notified pt's mother.
[2019-03-04] MEDS: CLOTRIMAZOLE 1% 15 GM TUBE TP SCH ×2 (11:05→21:02)
[2019-03-04] MEDS: THERAHONEY GEL 1.5 OZ TUBE TP SCH ×2 (11:05→21:02)
[2019-03-04] MEDS: POVIDONE-IODINE OINT 28.4 GM TUBE TP SCH ×2 (11:05→21:02)
[2019-03-04] MEDS: METOCLOPRAMIDE HCL 10 MG/10 ML UDC GT SCH ×3 (12:00→23:27)
[2019-03-04 12:10] VITALS: BP 122/69
[2019-03-04] MEDS: FAT EMULSION 20% 500 ML in PREMIX 1 EA IV SCH (18:21)
[2019-03-04 19:49] VITALS: BP 120/79
[2019-03-04] MEDS: MULTIVITAMINS,THERAGRAN 1 UDTAB TABLET GT SCH (20:59)
[2019-03-04] MEDS: SENNOSIDES 8.6 MG TABLET GT SCH (21:02)
[2019-03-05] MEDS: BLOOD SUGAR DIAGNOSTIC 1 EACH STRIP IN SCH ×5 (00:17→23:30)
[2019-03-05] MEDS: INSULIN REGULAR, HUMAN 100 UNIT/ML 3 ML VIAL SQ PRN ×3 (00:18→23:31)
[2019-03-05] MEDS: ALBUTEROL FS 2.5 MG/3 ML VIAL.NEB IH SCH ×4 (02:08→19:52)
[2019-03-05] MEDS: IPRATROPIUM NEB FS 0.5 MG/2.5 ML AMPUL.NEB IH SCH ×4 (02:08→19:52)
[2019-03-05] MEDS: ERYTHROMYCIN 250 MG in IV NS 0.9% 100 ML IV SCH ×3 (03:00→19:00)
[2019-03-05] MEDS: MEROPENEM 1 G in IV NS 0.9% 100 ML IV SCH ×3 (05:00→21:15)
[2019-03-05] MEDS: BACLOFEN (10 MG) 10 MG TABLET GT SCH ×4 (05:22→23:30)
[2019-03-05] MEDS: METOCLOPRAMIDE HCL 10 MG/10 ML UDC GT SCH ×4 (05:22→23:30)
[2019-03-05] MEDS: SIMETHICONE SUSP 40 MG/0.6 ML BOTTLE PO SCH ×4 (05:35→23:31)
[2019-03-05 07:12] LABS: HEMOGLOBIN 10.7 g/dL (13.5-17.5)
[2019-03-05 07:44] LABS: CALCIUM, SERUM 8.5 mg/dL (8.5-10.1); CREATININE 0.6 mg/dL (0.6-1.3); MAGNESIUM 2.2 mg/dL (1.8-2.4); PHOSPHORUS 2.1 mg/dL (2.5-4.9); POTASSIUM 3.6 mmol/L (3.5-5.1)
[2019-03-05 07:59] VITALS: BP 113/85
--- NOTE | 2019-03-05 08:30 | NUR ---
Dr. Duenas seen and examined resident with new orders. D/C GT low intermittent suction, start GT feeding Jevity 1.2 at 20 ml/hr. Continue TPN. KUB result reviewed. Will continue to monitor.
[2019-03-05] MEDS: HYDROGEN PEROXIDE 480 ML BOTTLE TP SCH ×2 (09:00→21:21)
--- NOTE | 2019-03-05 09:30 | NUR ---
Resident's mother Vilma was informed about Dr. Duenas's new orders. Expressed understanding and appreciated the update.
[2019-03-05] MEDS: PANTOPRAZOLE 40 MG VIAL IV SCH ×2 (09:52→21:15)
[2019-03-05] MEDS: METOPROLOL TARTRATE 25 MG TABLET GT SCH ×2 (09:59→21:10)
[2019-03-05] MEDS: LEVETIRACETAM SOL (5 ML) 100 MG/ML UDC GT SCH ×2 (09:59→21:09)
[2019-03-05] MEDS: LACTOBACILLUS RHAMNOSUS GG 1 EACH CAP.SPRINK GT SCH ×2 (09:59→17:50)
[2019-03-05] MEDS: DOCUSATE SODIUM LIQ 100 MG/10 ML UDC GT SCH ×2 (09:59→17:50)
[2019-03-05] MEDS: FERROUS SULFATE UDC 300 MG/5 ML UDC GT SCH (09:59)
[2019-03-05] MEDS: TOPIRAMATE 25 MG TABLET GT SCH ×2 (10:00→21:10)
[2019-03-05] MEDS: CRANBERRY D MANNOSE TP SCH (10:00)
[2019-03-05] MEDS: PROSOURCE / PROSTAT (PYXIS) 30 ML UDC GT SCH ×3 (10:00→17:50)
[2019-03-05] MEDS: CHLORHEXIDINE GLUCONATE 15 ML UDC MM SCH ×2 (10:00→21:10)
[2019-03-05] MEDS: ZINC SULFATE 220 MG CAPSULE GT SCH (10:00)
[2019-03-05] MEDS: TIZANIDINE HCL 4 MG TABLET GT SCH ×2 (10:00→21:10)
[2019-03-05] MEDS: HYDROCODONE/APAP 5/325MG 1 EACH TABLET GT SCH ×2 (10:00→21:10)
[2019-03-05] MEDS: JEVITY 1.2 CAL 1,000 ML BOTTLE GT PRN (10:07)
[2019-03-05] MEDS: THERAHONEY GEL 1.5 OZ TUBE TP SCH ×2 (10:30→21:10)
[2019-03-05] MEDS: CLOTRIMAZOLE 1% 15 GM TUBE TP SCH ×2 (10:30→21:10)
[2019-03-05] MEDS: POVIDONE-IODINE OINT 28.4 GM TUBE TP SCH ×2 (10:30→21:10)
[2019-03-05] MEDS ORDERED: TPN BAG #22 IV PRN ×16 (11:00)
--- NOTE | 2019-03-05 14:18 | NUR ---
Family Support: SW checked in with patients mother, Vilma Beasley as she is having difficulty adapting to pt.s diagnosis. Vilma stated that she appreciates SW checking in with her. SW provided education to family regarding 7 stages of grief and provided an informational packet. This is the first time that Vilma does not have an episode of tearfulness when speaking to SW. Vilma stated that she is better spirits and expressed being grateful for the care provided at [facility] as she sees him improving. SW informed Vilma that if she is ever interested in participating in a support group or therapy, SW can assist with finding services in [place] where Vilma resides. Vilma was agreeable to plan.
--- NOTE | 2019-03-05 14:19 | NUR ---
Family Satisfaction Survey: ZENIA provided pat.'s mother, Vilma with Family satisfaction survey. Per Vilma, she will complete it and bring it back once filled. ZENIA agreeable to plan. Per Vilma, she will be here all of next week to spend the holidays with pt. ZENIA reminded Vilma about Thanksgiving celebration for families on 03/09/19 11:30 am. Vilma expressed understanding.
--- NOTE | 2019-03-05 14:47 | NUR ---
INTERDISCIPLINARY PLAN OF CARE CONFERENCE took place today. The patients responsible green party/ Vilma Ramos [phone] was in attendance. Charge Nurse discussed pt.'s vitals are stable;low grade fever; & 11/20 D/C for Merrem for ESBL of the wound. Dr. Warren and Interdisciplinary team discussed the plan of care in detail. The IDT addressed all of the familys questions. Current orders as well as treatments and medications were reviewed. Please see other disciplines IDT notes for further details.
[2019-03-05] MEDS ORDERED: TPN BAG #21 IV PRN ×6 (19:00)
[2019-03-05 20:04] VITALS: BP 128/73
[2019-03-05] MEDS: MULTIVITAMINS,THERAGRAN 1 UDTAB TABLET GT SCH (21:10)
[2019-03-05] MEDS: SENNOSIDES 8.6 MG TABLET GT SCH (21:11)
[2019-03-06] MEDS: ALBUTEROL FS 2.5 MG/3 ML VIAL.NEB IH SCH ×4 (01:57→19:48)
[2019-03-06] MEDS: IPRATROPIUM NEB FS 0.5 MG/2.5 ML AMPUL.NEB IH SCH ×4 (01:57→19:48)
[2019-03-06] MEDS: ERYTHROMYCIN 250 MG in IV NS 0.9% 100 ML IV SCH ×3 (03:03→19:00)
[2019-03-06] MEDS: MEROPENEM 1 G in IV NS 0.9% 100 ML IV SCH ×3 (05:00→21:00)
[2019-03-06] MEDS: INSULIN REGULAR, HUMAN 100 UNIT/ML 3 ML VIAL SQ PRN ×2 (05:49→23:40)
[2019-03-06] MEDS: SIMETHICONE SUSP 40 MG/0.6 ML BOTTLE PO SCH ×4 (05:49→23:39)
[2019-03-06] MEDS: BACLOFEN (10 MG) 10 MG TABLET GT SCH ×4 (05:49→23:39)
[2019-03-06] MEDS: BLOOD SUGAR DIAGNOSTIC 1 EACH STRIP IN SCH ×4 (05:49→23:39)
[2019-03-06] MEDS: METOCLOPRAMIDE HCL 10 MG/10 ML UDC GT SCH ×4 (05:49→23:39)
[2019-03-06 07:21] LABS: HEMOGLOBIN 10.3 g/dL (13.5-17.5)
[2019-03-06 07:58] LABS: CALCIUM, SERUM 8.4 mg/dL (8.5-10.1); CREATININE 0.5 mg/dL (0.6-1.3); MAGNESIUM 2.4 mg/dL (1.8-2.4); POTASSIUM 3.7 mmol/L (3.5-5.1)
[2019-03-06] MEDS: HYDROGEN PEROXIDE 480 ML BOTTLE TP SCH ×2 (08:09→21:58)
[2019-03-06 08:13] VITALS: BP 131/87
[2019-03-06] MEDS: LEVETIRACETAM SOL (5 ML) 100 MG/ML UDC GT SCH ×2 (09:00→21:03)
[2019-03-06] MEDS: CRANBERRY D MANNOSE TP SCH (09:00)
[2019-03-06] MEDS: CHLORHEXIDINE GLUCONATE 15 ML UDC MM SCH ×2 (09:00→21:05)
[2019-03-06] MEDS: LACTOBACILLUS RHAMNOSUS GG 1 EACH CAP.SPRINK GT SCH ×2 (09:00→17:45)
[2019-03-06] MEDS: TIZANIDINE HCL 4 MG TABLET GT SCH ×2 (09:00→21:04)
[2019-03-06] MEDS: PROSOURCE / PROSTAT (PYXIS) 30 ML UDC GT SCH ×3 (09:00→17:45)
[2019-03-06] MEDS: PANTOPRAZOLE 40 MG VIAL IV SCH ×2 (09:00→21:00)
[2019-03-06] MEDS: ZINC SULFATE 220 MG CAPSULE GT SCH (09:00)
[2019-03-06] MEDS: FERROUS SULFATE UDC 300 MG/5 ML UDC GT SCH (09:00)
[2019-03-06] MEDS: DOCUSATE SODIUM LIQ 100 MG/10 ML UDC GT SCH ×2 (09:00→17:45)
[2019-03-06] MEDS: TOPIRAMATE 25 MG TABLET GT SCH ×2 (09:00→21:04)
[2019-03-06] MEDS: METOPROLOL TARTRATE 25 MG TABLET GT SCH ×2 (09:00→21:04)
[2019-03-06] MEDS: HYDROCODONE/APAP 5/325MG 1 EACH TABLET GT SCH ×2 (10:00→21:04)
[2019-03-06] MEDS: THERAHONEY GEL 1.5 OZ TUBE TP SCH ×2 (10:30→21:05)
[2019-03-06] MEDS: CLOTRIMAZOLE 1% 15 GM TUBE TP SCH ×2 (10:30→21:05)
[2019-03-06] MEDS: POVIDONE-IODINE OINT 28.4 GM TUBE TP SCH ×2 (10:30→21:05)
--- NOTE | 2019-03-06 15:42 | NUR ---
RT NOTES TRACH TUBE IN PLACE, PATENT, AND SECURED WITH TRACH TIE. ALARMS ON AND AUDIBLE. VENT PLUGGED IN TO RED OUTLET. BACK UP TRACH AND AMBU BAG BY THE BEDSIDE. NO SIGNS OF ANY DISTRESS AT THIS TIME. WILL CONTINUE TO MONITOR. Addendum: 03/06/19 at 1544 by KATELYN HUYNH RT Amended: Links added.
[2019-03-06] MEDS: FAT EMULSION 20% 500 ML in PREMIX 1 EA IV SCH (17:16)
[2019-03-06] MEDS: JEVITY 1.2 CAL 1,000 ML BOTTLE GT PRN (17:46)
[2019-03-06] MEDS ORDERED: TPN BAG #23 IV PRN ×5 (20:00)
[2019-03-06] MEDS: MULTIVITAMINS,THERAGRAN 1 UDTAB TABLET GT SCH (21:04)
[2019-03-06] MEDS: SENNOSIDES 8.6 MG TABLET GT SCH (21:05)
[2019-03-06 21:09] VITALS: BP 127/82
[2019-03-07] MEDS: IPRATROPIUM NEB FS 0.5 MG/2.5 ML AMPUL.NEB IH SCH ×4 (01:05→20:04)
[2019-03-07] MEDS: ALBUTEROL FS 2.5 MG/3 ML VIAL.NEB IH SCH ×4 (01:05→20:04)
[2019-03-07] MEDS: ERYTHROMYCIN 250 MG in IV NS 0.9% 100 ML IV SCH ×3 (03:00→18:05)
[2019-03-07] MEDS: MEROPENEM 1 G in IV NS 0.9% 100 ML IV SCH ×3 (05:00→21:00)
[2019-03-07] MEDS: BACLOFEN (10 MG) 10 MG TABLET GT SCH ×3 (05:34→17:11)
[2019-03-07] MEDS: BLOOD SUGAR DIAGNOSTIC 1 EACH STRIP IN SCH ×3 (05:34→17:11)
[2019-03-07] MEDS: SIMETHICONE SUSP 40 MG/0.6 ML BOTTLE PO SCH ×3 (05:34→17:11)
[2019-03-07] MEDS: INSULIN REGULAR, HUMAN 100 UNIT/ML 3 ML VIAL SQ PRN ×3 (05:34→17:11)
[2019-03-07] MEDS: METOCLOPRAMIDE HCL 10 MG/10 ML UDC GT SCH ×3 (05:34→17:11)
[2019-03-07 07:17] LABS: HEMOGLOBIN 10.2 g/dL (13.5-17.5)
[2019-03-07 07:30] LABS: CALCIUM, SERUM 8.2 mg/dL (8.5-10.1); CREATININE 0.5 mg/dL (0.6-1.3); MAGNESIUM 2.2 mg/dL (1.8-2.4); PHOSPHORUS 2.7 mg/dL (2.5-4.9); POTASSIUM 3.6 mmol/L (3.5-5.1)
[2019-03-07 07:59] VITALS: BP 117/91
[2019-03-07] MEDS ORDERED: TPN BAG #24 IV PRN ×13 (08:00→20:00)
[2019-03-07] MEDS: PANTOPRAZOLE 40 MG VIAL IV SCH ×2 (08:31→21:00)
[2019-03-07] MEDS: CLOTRIMAZOLE 1% 15 GM TUBE TP SCH (09:00)
[2019-03-07] MEDS: THERAHONEY GEL 1.5 OZ TUBE TP SCH ×2 (09:00→21:59)
[2019-03-07] MEDS: HYDROGEN PEROXIDE 480 ML BOTTLE TP SCH ×2 (09:00→20:04)
[2019-03-07] MEDS: LACTOBACILLUS RHAMNOSUS GG 1 EACH CAP.SPRINK GT SCH ×2 (09:32→16:53)
[2019-03-07] MEDS: DOCUSATE SODIUM LIQ 100 MG/10 ML UDC GT SCH ×2 (09:32→16:53)
[2019-03-07] MEDS: METOPROLOL TARTRATE 25 MG TABLET GT SCH ×2 (09:32→21:58)
[2019-03-07] MEDS: LEVETIRACETAM SOL (5 ML) 100 MG/ML UDC GT SCH ×2 (09:32→21:57)
[2019-03-07] MEDS: FERROUS SULFATE UDC 300 MG/5 ML UDC GT SCH (09:32)
[2019-03-07] MEDS: PROSOURCE / PROSTAT (PYXIS) 30 ML UDC GT SCH ×3 (09:33→16:53)
[2019-03-07] MEDS: HYDROCODONE/APAP 5/325MG 1 EACH TABLET GT SCH ×2 (09:33→21:58)
[2019-03-07] MEDS: TIZANIDINE HCL 4 MG TABLET GT SCH ×2 (09:33→21:58)
[2019-03-07] MEDS: CHLORHEXIDINE GLUCONATE 15 ML UDC MM SCH ×2 (09:33→21:59)
[2019-03-07] MEDS: POVIDONE-IODINE OINT 28.4 GM TUBE TP SCH ×2 (09:33→21:59)
[2019-03-07] MEDS: TOPIRAMATE 25 MG TABLET GT SCH ×2 (09:33→21:58)
[2019-03-07] MEDS: ZINC SULFATE 220 MG CAPSULE GT SCH (09:33)
[2019-03-07] MEDS: CRANBERRY D MANNOSE TP SCH (09:33)
[2019-03-07] MEDS ORDERED: TPN BAG #25 IV PRN ×10 (13:00→21:00)
[2019-03-07 19:50] VITALS: BP 135/87
--- NOTE | 2019-03-07 20:04 | NUR ---
RT NOTE: RECEIVED TRACH PT ON [facility] VENT ON NOTED SETTINGS PER MD ORDERS. TRACH IS PATENT AND SECURED. TRACH CARE DONE. CABLE TESTER DONE. Q6 BREATHING TX GIVEN WITH NO ADVERSE REACTION NOTED. SX DONE PRN. VENT PLUGGED INTO RED OUTLET. ALARMS ON AND AUDIBLE. KARTIKU BAG @ BEDSIDE. NO RESP DISTRESS AT THIS TIME. WILL CONT TO MONITOR PT. Addendum: 03/08/19 at 0246 by KELLY HOPE RT Amended: Links added.
[2019-03-07] MEDS: MULTIVITAMINS,THERAGRAN 1 UDTAB TABLET GT SCH (21:58)
[2019-03-07] MEDS: SENNOSIDES 8.6 MG TABLET GT SCH (21:59)
[2019-03-08] MEDS: BACLOFEN (10 MG) 10 MG TABLET GT SCH ×4 (00:40→17:26)
[2019-03-08] MEDS: METOCLOPRAMIDE HCL 10 MG/10 ML UDC GT SCH ×4 (00:40→17:26)
[2019-03-08] MEDS: BLOOD SUGAR DIAGNOSTIC 1 EACH STRIP IN SCH ×4 (00:40→17:26)
[2019-03-08] MEDS: SIMETHICONE SUSP 40 MG/0.6 ML BOTTLE PO SCH ×4 (00:40→17:26)
[2019-03-08] MEDS: INSULIN REGULAR, HUMAN 100 UNIT/ML 3 ML VIAL SQ PRN ×2 (00:41→06:37)
[2019-03-08] MEDS: ALBUTEROL FS 2.5 MG/3 ML VIAL.NEB IH SCH ×4 (02:00→20:05)
[2019-03-08] MEDS: IPRATROPIUM NEB FS 0.5 MG/2.5 ML AMPUL.NEB IH SCH ×4 (02:00→20:05)
[2019-03-08] MEDS: ERYTHROMYCIN 250 MG in IV NS 0.9% 100 ML IV SCH ×2 (03:00→11:32)
[2019-03-08] MEDS: MEROPENEM 1 G in IV NS 0.9% 100 ML IV SCH ×3 (05:00→21:00)
[2019-03-08 07:17] LABS: CALCIUM, SERUM 8.5 mg/dL (8.5-10.1); CREATININE 0.6 mg/dL (0.6-1.3); MAGNESIUM 2.2 mg/dL (1.8-2.4); PHOSPHORUS 3.3 mg/dL (2.5-4.9)
[2019-03-08 07:46] VITALS: BP 121/76
[2019-03-08] MEDS ORDERED: TPN BAG #26 IV PRN ×16 (08:00)
[2019-03-08] MEDS: HYDROGEN PEROXIDE 480 ML BOTTLE TP SCH ×2 (08:30→20:05)
--- NOTE | 2019-03-08 08:30 | NUR ---
Dr. Ybarra seen and examined resident, no new order given.
[2019-03-08] MEDS: FERROUS SULFATE UDC 300 MG/5 ML UDC GT SCH (09:51)
[2019-03-08] MEDS: LACTOBACILLUS RHAMNOSUS GG 1 EACH CAP.SPRINK GT SCH ×2 (09:51→17:26)
[2019-03-08] MEDS: LEVETIRACETAM SOL (5 ML) 100 MG/ML UDC GT SCH ×2 (09:51→21:43)
[2019-03-08] MEDS: DOCUSATE SODIUM LIQ 100 MG/10 ML UDC GT SCH ×2 (09:51→17:26)
[2019-03-08] MEDS: TOPIRAMATE 25 MG TABLET GT SCH ×2 (09:52→21:44)
[2019-03-08] MEDS: CHLORHEXIDINE GLUCONATE 15 ML UDC MM SCH ×2 (09:52→21:44)
[2019-03-08] MEDS: METOPROLOL TARTRATE 25 MG TABLET GT SCH ×2 (09:52→21:44)
[2019-03-08] MEDS: CRANBERRY D MANNOSE TP SCH (09:52)
[2019-03-08] MEDS: HYDROCODONE/APAP 5/325MG 1 EACH TABLET GT SCH ×2 (09:52→21:44)
[2019-03-08] MEDS: ZINC SULFATE 220 MG CAPSULE GT SCH (09:52)
[2019-03-08] MEDS: TIZANIDINE HCL 4 MG TABLET GT SCH ×2 (09:52→21:44)
[2019-03-08] MEDS: PROSOURCE / PROSTAT (PYXIS) 30 ML UDC GT SCH ×3 (09:52→17:26)
[2019-03-08] MEDS: PANTOPRAZOLE 40 MG VIAL IV SCH ×2 (09:53→21:00)
--- NOTE | 2019-03-08 10:00 | NUR ---
Dr. Duenas seen and examined resident with new order given and carried out. Increased GT feeding to 30 ml/hr as tolerated, if noted with bloating or high residual put back to 20 ml/hr. Continue TPN. Will continue to monitor.
[2019-03-08] MEDS: POVIDONE-IODINE OINT 28.4 GM TUBE TP SCH ×2 (10:30→21:44)
[2019-03-08] MEDS: THERAHONEY GEL 1.5 OZ TUBE TP SCH ×2 (10:30→21:44)
[2019-03-08] MEDS ORDERED: JEVITY 1.2 CAL 1,000 ML BOTTLE GT PRN (11:03)
--- NOTE | 2019-03-08 16:07 | NUR ---
RT Pt received trach'd and on vent w charted settings. Vent is plugged into red outlet w bmv @ hob. Alarms are set and audible. Pt is stable w no respiratory distress noted t/o shift. No sob noted. Will continue to monitor. Addendum: 03/08/19 at 1659 by CLAUDIA CULP RT Amended: Links added.
[2019-03-08] MEDS: FAT EMULSION 20% 500 ML in PREMIX 1 EA IV SCH (17:41)
[2019-03-08] MEDS ORDERED: TPN BAG #27 IV PRN ×10 (20:00)
[2019-03-08 20:19] VITALS: BP 116/69
[2019-03-08] MEDS: SENNOSIDES 8.6 MG TABLET GT SCH (21:44)
[2019-03-08] MEDS: MULTIVITAMINS,THERAGRAN 1 UDTAB TABLET GT SCH (21:44)
[2019-03-09] MEDS: SIMETHICONE SUSP 40 MG/0.6 ML BOTTLE PO SCH ×4 (00:40→17:10)
[2019-03-09] MEDS: BLOOD SUGAR DIAGNOSTIC 1 EACH STRIP IN SCH ×4 (00:40→17:33)
[2019-03-09] MEDS: BACLOFEN (10 MG) 10 MG TABLET GT SCH ×4 (00:40→17:10)
[2019-03-09] MEDS: METOCLOPRAMIDE HCL 10 MG/10 ML UDC GT SCH ×4 (00:40→17:10)
[2019-03-09] MEDS: IPRATROPIUM NEB FS 0.5 MG/2.5 ML AMPUL.NEB IH SCH ×4 (01:45→19:46)
[2019-03-09] MEDS: ALBUTEROL FS 2.5 MG/3 ML VIAL.NEB IH SCH ×4 (01:45→19:46)
[2019-03-09] MEDS: ERYTHROMYCIN 250 MG in IV NS 0.9% 100 ML IV SCH ×3 (02:34→19:01)
[2019-03-09] MEDS: MEROPENEM 1 G in IV NS 0.9% 100 ML IV SCH ×3 (05:00→20:36)
[2019-03-09] MEDS ORDERED: TPN BAG #26 IV PRN ×8 (08:00)
[2019-03-09] MEDS ORDERED: TPN BAG #28 IV PRN ×8 (08:00)
[2019-03-09 08:03] VITALS: BP 125/89
[2019-03-09 08:03] LABS: CALCIUM, SERUM 8.6 mg/dL (8.5-10.1); CREATININE 0.6 mg/dL (0.6-1.3); PHOSPHORUS 3.2 mg/dL (2.5-4.9)
[2019-03-09] MEDS: HYDROGEN PEROXIDE 480 ML BOTTLE TP SCH ×2 (08:34→19:46)
[2019-03-09] MEDS: POVIDONE-IODINE OINT 28.4 GM TUBE TP SCH ×2 (09:00→21:24)
[2019-03-09] MEDS: THERAHONEY GEL 1.5 OZ TUBE TP SCH ×2 (09:00→21:25)
[2019-03-09] MEDS ORDERED: TPN BAG #29 IV PRN ×6 (09:00)
[2019-03-09] MEDS ORDERED: TPN BAG #30 IV PRN ×8 (09:00)
[2019-03-09] MEDS: DOCUSATE SODIUM LIQ 100 MG/10 ML UDC GT SCH ×2 (09:05→17:10)
[2019-03-09] MEDS: LEVETIRACETAM SOL (5 ML) 100 MG/ML UDC GT SCH ×2 (09:05→21:23)
[2019-03-09] MEDS: LACTOBACILLUS RHAMNOSUS GG 1 EACH CAP.SPRINK GT SCH ×2 (09:05→17:10)
[2019-03-09] MEDS: FERROUS SULFATE UDC 300 MG/5 ML UDC GT SCH (09:05)
[2019-03-09] MEDS: METOPROLOL TARTRATE 25 MG TABLET GT SCH ×2 (09:06→21:24)
[2019-03-09] MEDS: ZINC SULFATE 220 MG CAPSULE GT SCH (09:06)
[2019-03-09] MEDS: CHLORHEXIDINE GLUCONATE 15 ML UDC MM SCH ×2 (09:06→21:24)
[2019-03-09] MEDS: HYDROCODONE/APAP 5/325MG 1 EACH TABLET GT SCH ×2 (09:06→21:24)
[2019-03-09] MEDS: TOPIRAMATE 25 MG TABLET GT SCH ×2 (09:06→21:24)
[2019-03-09] MEDS: PROSOURCE / PROSTAT (PYXIS) 30 ML UDC GT SCH ×3 (09:06→17:10)
[2019-03-09] MEDS: TIZANIDINE HCL 4 MG TABLET GT SCH ×2 (09:06→21:24)
[2019-03-09] MEDS: CRANBERRY D MANNOSE TP SCH (09:07)
[2019-03-09] MEDS: PANTOPRAZOLE 40 MG VIAL IV SCH ×2 (09:29→20:37)
[2019-03-09] MEDS ORDERED: JEVITY 1.2 CAL 1,000 ML BOTTLE GT PRN (11:18)
--- NOTE | 2019-03-09 11:42 | NUR ---
Seen by Dr Duenas. Pt tolerating GT feeding well, no gastric residuals, no vomiting. Dr Duenas ordered to increase GT feeding rate from 30 to 40 mL/hr. Asked him if he wanted to DC TPN and Erythromycin since pt is tolerating GT feeding. Also asked him if he wanted to resume water flushes. He said to wait until tomorrow. Notified pharmacist Ha.
[2019-03-09] MEDS: INSULIN REGULAR, HUMAN 100 UNIT/ML 3 ML VIAL SQ PRN ×2 (12:11→17:34)
[2019-03-09] MEDS: JEVITY 1.2 CAL 1,000 ML BOTTLE GT PRN (17:10)
[2019-03-09 21:19] VITALS: BP 139/90
[2019-03-09] MEDS: MULTIVITAMINS,THERAGRAN 1 UDTAB TABLET GT SCH (21:24)
[2019-03-09] MEDS: SENNOSIDES 8.6 MG TABLET GT SCH (21:25)
[2019-03-10] MEDS: BACLOFEN (10 MG) 10 MG TABLET GT SCH ×4 (00:09→18:49)
[2019-03-10] MEDS: SIMETHICONE SUSP 40 MG/0.6 ML BOTTLE PO SCH ×4 (00:09→18:49)
[2019-03-10] MEDS: BLOOD SUGAR DIAGNOSTIC 1 EACH STRIP IN SCH ×4 (00:09→18:49)
[2019-03-10] MEDS: METOCLOPRAMIDE HCL 10 MG/10 ML UDC GT SCH ×4 (00:09→18:49)
[2019-03-10] MEDS: IPRATROPIUM NEB FS 0.5 MG/2.5 ML AMPUL.NEB IH SCH ×4 (00:39→19:21)
[2019-03-10] MEDS: ALBUTEROL FS 2.5 MG/3 ML VIAL.NEB IH SCH ×4 (00:39→19:21)
[2019-03-10] MEDS: ERYTHROMYCIN 250 MG in IV NS 0.9% 100 ML IV SCH ×2 (03:37→10:07)
[2019-03-10] MEDS: MEROPENEM 1 G in IV NS 0.9% 100 ML IV SCH ×3 (05:00→21:19)
[2019-03-10 07:40] LABS: CALCIUM, SERUM 8.6 mg/dL (8.5-10.1); CREATININE 0.5 mg/dL (0.6-1.3); MAGNESIUM 2.1 mg/dL (1.8-2.4); PHOSPHORUS 3.4 mg/dL (2.5-4.9); POTASSIUM 4.2 mmol/L (3.5-5.1)
[2019-03-10 07:51] VITALS: BP 114/72
[2019-03-10] MEDS: HYDROGEN PEROXIDE 480 ML BOTTLE TP SCH ×2 (08:05→20:28)
[2019-03-10] MEDS: HYDROCODONE/APAP 5/325MG 1 EACH TABLET GT SCH ×2 (09:00→21:27)
[2019-03-10] MEDS: CHLORHEXIDINE GLUCONATE 15 ML UDC MM SCH ×2 (09:00→21:27)
[2019-03-10] MEDS: THERAHONEY GEL 1.5 OZ TUBE TP SCH ×2 (09:00→21:27)
[2019-03-10] MEDS: TIZANIDINE HCL 4 MG TABLET GT SCH ×2 (09:00→21:27)
[2019-03-10] MEDS: METOPROLOL TARTRATE 25 MG TABLET GT SCH ×2 (09:00→21:26)
[2019-03-10] MEDS: FERROUS SULFATE UDC 300 MG/5 ML UDC GT SCH (09:00)
[2019-03-10] MEDS: ZINC SULFATE 220 MG CAPSULE GT SCH (09:00)
[2019-03-10] MEDS: LACTOBACILLUS RHAMNOSUS GG 1 EACH CAP.SPRINK GT SCH ×2 (09:00→17:00)
[2019-03-10] MEDS: PROSOURCE / PROSTAT (PYXIS) 30 ML UDC GT SCH ×3 (09:00→17:00)
[2019-03-10] MEDS: PANTOPRAZOLE 40 MG VIAL IV SCH (09:00)
[2019-03-10] MEDS: CRANBERRY D MANNOSE TP SCH (09:00)
[2019-03-10] MEDS: DOCUSATE SODIUM LIQ 100 MG/10 ML UDC GT SCH ×2 (09:00→17:00)
[2019-03-10] MEDS: LEVETIRACETAM SOL (5 ML) 100 MG/ML UDC GT SCH ×2 (09:00→21:26)
[2019-03-10] MEDS: POVIDONE-IODINE OINT 28.4 GM TUBE TP SCH ×2 (09:00→21:27)
[2019-03-10] MEDS: TOPIRAMATE 25 MG TABLET GT SCH ×2 (09:00→21:27)
--- NOTE | 2019-03-10 10:30 | NUR ---
Seen by Dr. Duenas, GI with order to decrease TPN rate to 40 cc/hr and keep current GT feeding rate at 40 cc/hr. Patient tolerating GT feeding, no vomiting and no gastric residual, and Protonix IV changed to via GT. Dr. Black said that he will reevaluate tomorrow if he will DC TPN tomorrow.
[2019-03-10] MEDS ORDERED: TPN BAG #30 IV PRN ×8 (10:45)
--- NOTE | 2019-03-10 12:30 | NUR ---
Seen and examined by Dr. Ybarra, koko MD of patient's condition. New order given to change Erythrocin from IV to GT. Order carried out.
--- NOTE | 2019-03-10 13:00 | NUR ---
Resident's mother visiting and made aware of new orders. Patient's mom and Dr. Ybarra also made aware that patient's sacral area is red due to episode of loose bowel movement. Continue to clean and kept him dry at frequent interval. Dr. Ybarra said to monitor for now if changing Erythrocin via GT will have an effect. Endorsed.
[2019-03-10] MEDS: INSULIN REGULAR, HUMAN 100 UNIT/ML 3 ML VIAL SQ PRN ×2 (13:50→18:53)
[2019-03-10] MEDS: FAT EMULSION 20% 500 ML in PREMIX 1 EA IV SCH (18:17)
[2019-03-10] MEDS: JEVITY 1.2 CAL 1,000 ML BOTTLE GT PRN (18:58)
[2019-03-10 20:03] VITALS: BP 132/80
[2019-03-10] MEDS: ERYTHROMYCIN ETHYLSUCCINATE 200 MG/5 ML SUSPENSION GT SCH (21:26)
[2019-03-10] MEDS: MULTIVITAMINS,THERAGRAN 1 UDTAB TABLET GT SCH (21:27)
[2019-03-10] MEDS: SENNOSIDES 8.6 MG TABLET GT SCH (21:27)
--- NOTE | 2019-03-10 22:05 | NUR ---
RECEIVED PT STABLE ON MV, SETTINGS ARE AC 12 500 +5 @ 40% FIO2, ALARMS ARE ON AND AUDIBLE, VENT PLUG IN RED OUTLET, BACK UP TRACH AND AMBU BAG IS AT BEDSIDE, TRACH PATENT AND SECURED WILL CONTINUE TO MONITOR Addendum: 03/10/19 at 2206 by AMANDA GALLO RT Amended: Links added.
[2019-03-11] MEDS: BACLOFEN (10 MG) 10 MG TABLET GT SCH ×5 (00:05→23:40)
[2019-03-11] MEDS: BLOOD SUGAR DIAGNOSTIC 1 EACH STRIP IN SCH ×5 (00:05→23:41)
[2019-03-11] MEDS: SIMETHICONE SUSP 40 MG/0.6 ML BOTTLE PO SCH ×5 (00:05→23:41)
[2019-03-11] MEDS: METOCLOPRAMIDE HCL 10 MG/10 ML UDC GT SCH ×5 (00:05→23:41)
[2019-03-11] MEDS: INSULIN REGULAR, HUMAN 100 UNIT/ML 3 ML VIAL SQ PRN ×3 (00:07→23:41)
[2019-03-11] MEDS: IPRATROPIUM NEB FS 0.5 MG/2.5 ML AMPUL.NEB IH SCH ×4 (01:34→20:00)
[2019-03-11] MEDS: ALBUTEROL FS 2.5 MG/3 ML VIAL.NEB IH SCH ×4 (01:34→20:00)
[2019-03-11] MEDS: MEROPENEM 1 G in IV NS 0.9% 100 ML IV SCH ×3 (05:00→21:00)
[2019-03-11] MEDS: ERYTHROMYCIN ETHYLSUCCINATE 200 MG/5 ML SUSPENSION GT SCH ×3 (05:42→21:11)
[2019-03-11 06:47] LABS: CALCIUM, SERUM 8.7 mg/dL (8.5-10.1); CREATININE 0.5 mg/dL (0.6-1.3); MAGNESIUM 2.1 mg/dL (1.8-2.4); PHOSPHORUS 3.6 mg/dL (2.5-4.9); POTASSIUM 4.2 mmol/L (3.5-5.1)
[2019-03-11] MEDS ORDERED: TPN BAG #31 IV PRN ×8 (08:00)
[2019-03-11 08:06] VITALS: BP 139/97
[2019-03-11] MEDS: HYDROGEN PEROXIDE 480 ML BOTTLE TP SCH ×2 (08:11→20:00)
[2019-03-11] MEDS: METOPROLOL TARTRATE 25 MG TABLET GT SCH ×2 (09:25→21:11)
[2019-03-11] MEDS: DOCUSATE SODIUM LIQ 100 MG/10 ML UDC GT SCH ×2 (09:25→17:47)
[2019-03-11] MEDS: HYDROCODONE/APAP 5/325MG 1 EACH TABLET GT SCH ×2 (09:25→21:12)
[2019-03-11] MEDS: LEVETIRACETAM SOL (5 ML) 100 MG/ML UDC GT SCH ×2 (09:25→21:11)
[2019-03-11] MEDS: FERROUS SULFATE UDC 300 MG/5 ML UDC GT SCH (09:25)
[2019-03-11] MEDS: LACTOBACILLUS RHAMNOSUS GG 1 EACH CAP.SPRINK GT SCH ×2 (09:25→17:47)
[2019-03-11] MEDS: ZINC SULFATE 220 MG CAPSULE GT SCH (09:26)
[2019-03-11] MEDS: PANTOPRAZOLE 40 MG/PACK PACK GT SCH ×2 (09:26→21:12)
[2019-03-11] MEDS: CRANBERRY D MANNOSE TP SCH (09:26)
[2019-03-11] MEDS: PROSOURCE / PROSTAT (PYXIS) 30 ML UDC GT SCH ×3 (09:26→17:47)
[2019-03-11] MEDS: TOPIRAMATE 25 MG TABLET GT SCH ×2 (09:26→21:12)
[2019-03-11] MEDS: TIZANIDINE HCL 4 MG TABLET GT SCH ×2 (09:26→21:12)
[2019-03-11] MEDS: CHLORHEXIDINE GLUCONATE 15 ML UDC MM SCH ×2 (09:26→21:12)
[2019-03-11] MEDS: POVIDONE-IODINE OINT 28.4 GM TUBE TP SCH ×2 (10:00→21:12)
[2019-03-11] MEDS: THERAHONEY GEL 1.5 OZ TUBE TP SCH ×2 (10:00→21:12)
--- NOTE | 2019-03-11 13:04 | NUR ---
Seen by Dr Duenas. Informed him that pt is tolerating GT feeding well, pt not vomiting, had gastric residual of 20-[address] Duenas ordered to DC TPN and increase GT feeding to 45 mL/hr x 20 hours per day. Addendum: 03/11/19 at 1328 by NANI NINA RN Informed Dr Duenas that feeding rate goal is 70 mL/hr x 20 hours per day. He ordered to increase GT feeding to 50 mL/hr.
[2019-03-11 13:06] VITALS: BP 114/71
[2019-03-11] MEDS ORDERED: JEVITY 1.2 CAL 1,000 ML BOTTLE GT PRN (13:08)
--- NOTE | 2019-03-11 13:28 | NUR ---
Pt's mother at bedside when Dr Duenas saw pt. She is aware of new orders.
--- NOTE | 2019-03-11 18:25 | NUR ---
TPN was titrated to 20mL/hr then DC'd. Pt tolerating GT feeding Jevity 1.2 at 50 mL/hr, had a gastric residual of 30 mL, no vomiting.
--- NOTE | 2019-03-11 20:00 | NUR ---
RT NOTE: RECEIVED TRACH PT ON [facility] VENT ON NOTED SETTINGS PER MD ORDERS. TRACH IS PATENT AND SECURED. TRACH CARE DONE. RAILROAD FIRER/FIREMAN DONE. Q6 BREATHING TX GIVEN WITH NO ADVERSE REACTION NOTED. SX DONE PRN. VENT PLUGGED INTO RED OUTLET. ALARMS ON AND AUDIBLE. LUCIA BAG @ BEDSIDE. NO RESP DISTRESS AT THIS TIME. WILL CONT TO MONITOR PT. Addendum: 03/12/19 at 0243 by KELLY HOPE RT Amended: Links added.
[2019-03-11 20:24] VITALS: BP 112/60
[2019-03-11] MEDS: MULTIVITAMINS,THERAGRAN 1 UDTAB TABLET GT SCH (21:12)
[2019-03-11] MEDS: SENNOSIDES 8.6 MG TABLET GT SCH (21:12)
[2019-03-11] MEDS: JEVITY 1.2 CAL 1,000 ML BOTTLE GT PRN (21:13)
[2019-03-12] MEDS: IPRATROPIUM NEB FS 0.5 MG/2.5 ML AMPUL.NEB IH SCH ×4 (01:56→20:20)
[2019-03-12] MEDS: ALBUTEROL FS 2.5 MG/3 ML VIAL.NEB IH SCH ×4 (01:56→20:20)
[2019-03-12] MEDS: MEROPENEM 1 G in IV NS 0.9% 100 ML IV SCH ×3 (05:00→21:00)
[2019-03-12] MEDS: SIMETHICONE SUSP 40 MG/0.6 ML BOTTLE PO SCH ×4 (05:47→23:14)
[2019-03-12] MEDS: BLOOD SUGAR DIAGNOSTIC 1 EACH STRIP IN SCH (05:47)
[2019-03-12] MEDS: ERYTHROMYCIN ETHYLSUCCINATE 200 MG/5 ML SUSPENSION GT SCH ×3 (05:47→21:13)
[2019-03-12] MEDS: BACLOFEN (10 MG) 10 MG TABLET GT SCH ×4 (05:47→23:14)
[2019-03-12] MEDS: METOCLOPRAMIDE HCL 10 MG/10 ML UDC GT SCH ×4 (05:47→23:14)
[2019-03-12] MEDS: INSULIN REGULAR, HUMAN 100 UNIT/ML 3 ML VIAL SQ PRN (05:49)
--- NOTE | 2019-03-12 06:20 | NUR ---
Patient tolerated GT feeding no residual,no emesis noted.HOB elevated at all times to prevent aspiration.
[2019-03-12 07:25] VITALS: BP 125/81
[2019-03-12] MEDS: CHLORHEXIDINE GLUCONATE 15 ML UDC MM SCH ×2 (09:00→21:15)
[2019-03-12] MEDS: ZINC SULFATE 220 MG CAPSULE GT SCH (09:00)
[2019-03-12] MEDS: DOCUSATE SODIUM LIQ 100 MG/10 ML UDC GT SCH ×2 (09:00→17:31)
[2019-03-12] MEDS: LEVETIRACETAM SOL (5 ML) 100 MG/ML UDC GT SCH ×2 (09:00→21:14)
[2019-03-12] MEDS: TOPIRAMATE 25 MG TABLET GT SCH ×2 (09:00→21:14)
[2019-03-12] MEDS: PANTOPRAZOLE 40 MG/PACK PACK GT SCH ×2 (09:00→21:14)
[2019-03-12] MEDS: LACTOBACILLUS RHAMNOSUS GG 1 EACH CAP.SPRINK GT SCH ×2 (09:00→17:31)
[2019-03-12] MEDS: FERROUS SULFATE UDC 300 MG/5 ML UDC GT SCH (09:00)
[2019-03-12] MEDS: PROSOURCE / PROSTAT (PYXIS) 30 ML UDC GT SCH ×3 (09:00→17:31)
[2019-03-12] MEDS: CRANBERRY D MANNOSE TP SCH (09:00)
[2019-03-12] MEDS: METOPROLOL TARTRATE 25 MG TABLET GT SCH ×2 (09:00→21:14)
[2019-03-12] MEDS: TIZANIDINE HCL 4 MG TABLET GT SCH ×2 (09:00→21:14)
[2019-03-12] MEDS: HYDROGEN PEROXIDE 480 ML BOTTLE TP SCH ×2 (09:30→21:24)
[2019-03-12] MEDS: HYDROCODONE/APAP 5/325MG 1 EACH TABLET GT SCH ×2 (10:00→21:14)
[2019-03-12] MEDS: THERAHONEY GEL 1.5 OZ TUBE TP SCH ×2 (10:30→21:15)
[2019-03-12] MEDS: POVIDONE-IODINE OINT 28.4 GM TUBE TP SCH ×2 (10:30→21:15)
[2019-03-12 19:40] VITALS: BP 133/78
[2019-03-12] MEDS: MULTIVITAMINS,THERAGRAN 1 UDTAB TABLET GT SCH (21:14)
[2019-03-12] MEDS: SENNOSIDES 8.6 MG TABLET GT SCH (21:15)
[2019-03-12] MEDS: JEVITY 1.2 CAL 1,000 ML BOTTLE GT PRN (23:14)
[2019-03-13] MEDS: ALBUTEROL FS 2.5 MG/3 ML VIAL.NEB IH SCH ×4 (01:56→19:36)
[2019-03-13] MEDS: IPRATROPIUM NEB FS 0.5 MG/2.5 ML AMPUL.NEB IH SCH ×4 (01:56→19:36)
--- NOTE | 2019-03-13 04:36 | NUR ---
RT NOTES PT RECEIVED ON MECHANICAL VENT WITH ORDERED SETTINGS. TRACH TUBE IN PLACE, PATENT, AND SECURED WITH TRACH TIE. ALARMS ON AND AUDIBLE. VENT PLUGGED IN TO RED OUTLET. AMBU BAG AND BACK UP TRACH BY THE BEDSIDE. PT SHOWS NO SIGNS OF DISTRESS AT THIS TIME. Addendum: 03/13/19 at 0436 by KATELYN HUYNH RT Amended: Links added.
[2019-03-13] MEDS: MEROPENEM 1 G in IV NS 0.9% 100 ML IV SCH ×2 (05:00→12:36)
[2019-03-13] MEDS: BACLOFEN (10 MG) 10 MG TABLET GT SCH ×4 (05:51→23:34)
[2019-03-13] MEDS: METOCLOPRAMIDE HCL 10 MG/10 ML UDC GT SCH ×4 (05:51→23:34)
[2019-03-13] MEDS: ERYTHROMYCIN ETHYLSUCCINATE 200 MG/5 ML SUSPENSION GT SCH ×3 (05:51→21:05)
[2019-03-13] MEDS: SIMETHICONE SUSP 40 MG/0.6 ML BOTTLE PO SCH ×4 (05:51→23:34)
[2019-03-13 07:55] VITALS: BP 128/87
[2019-03-13] MEDS: LACTOBACILLUS RHAMNOSUS GG 1 EACH CAP.SPRINK GT SCH ×2 (09:00→17:06)
[2019-03-13] MEDS: PROSOURCE / PROSTAT (PYXIS) 30 ML UDC GT SCH ×3 (09:00→17:06)
[2019-03-13] MEDS: HYDROGEN PEROXIDE 480 ML BOTTLE TP SCH ×2 (09:00→19:36)
[2019-03-13] MEDS: METOPROLOL TARTRATE 25 MG TABLET GT SCH ×2 (09:00→21:06)
[2019-03-13] MEDS: LEVETIRACETAM SOL (5 ML) 100 MG/ML UDC GT SCH ×2 (09:00→21:05)
[2019-03-13] MEDS: CRANBERRY D MANNOSE TP SCH (09:00)
[2019-03-13] MEDS: TOPIRAMATE 25 MG TABLET GT SCH ×2 (09:00→21:06)
[2019-03-13] MEDS: ZINC SULFATE 220 MG CAPSULE GT SCH (09:00)
[2019-03-13] MEDS: FERROUS SULFATE UDC 300 MG/5 ML UDC GT SCH (09:00)
[2019-03-13] MEDS: PANTOPRAZOLE 40 MG/PACK PACK GT SCH (09:00)
[2019-03-13] MEDS: DOCUSATE SODIUM LIQ 100 MG/10 ML UDC GT SCH ×2 (09:00→17:06)
[2019-03-13] MEDS: TIZANIDINE HCL 4 MG TABLET GT SCH ×2 (09:00→21:06)
[2019-03-13] MEDS: CHLORHEXIDINE GLUCONATE 15 ML UDC MM SCH ×2 (09:00→21:06)
[2019-03-13] MEDS: HYDROCODONE/APAP 5/325MG 1 EACH TABLET GT SCH ×2 (10:00→21:06)
[2019-03-13] MEDS: THERAHONEY GEL 1.5 OZ TUBE TP SCH ×2 (10:30→21:07)
[2019-03-13] MEDS: POVIDONE-IODINE OINT 28.4 GM TUBE TP SCH ×2 (10:30→21:06)
[2019-03-13 20:06] VITALS: BP 119/78
[2019-03-13] MEDS: MULTIVITAMINS,THERAGRAN 1 UDTAB TABLET GT SCH (21:06)
[2019-03-13] MEDS: OMEPRAZOLE 20 MG CAPSULE.DR GT SCH (21:06)
[2019-03-13] MEDS: JEVITY 1.2 CAL 1,000 ML BOTTLE GT PRN (21:07)
[2019-03-13] MEDS: SENNOSIDES 8.6 MG TABLET GT SCH (21:07)
[2019-03-14] MEDS: ALBUTEROL FS 2.5 MG/3 ML VIAL.NEB IH SCH ×4 (01:25→19:49)
[2019-03-14] MEDS: IPRATROPIUM NEB FS 0.5 MG/2.5 ML AMPUL.NEB IH SCH ×4 (01:25→19:49)
[2019-03-14] MEDS: METOCLOPRAMIDE HCL 10 MG/10 ML UDC GT SCH ×4 (05:19→23:49)
[2019-03-14] MEDS: ERYTHROMYCIN ETHYLSUCCINATE 200 MG/5 ML SUSPENSION GT SCH ×3 (05:19→21:23)
[2019-03-14] MEDS: BACLOFEN (10 MG) 10 MG TABLET GT SCH ×4 (05:19→23:49)
[2019-03-14] MEDS: SIMETHICONE SUSP 40 MG/0.6 ML BOTTLE PO SCH ×4 (05:20→23:49)
--- NOTE | 2019-03-14 05:39 | NUR ---
RT NOTE PATIENT RECEIVED ON TRACH WITH VENTILATOR. WITH NOTED SETTINGS. TRACH IS PATENT AND SECURED. ALARMS ARE SET AND AUDIBLE. SPARE TRACH AND AMBU BAG IS AT BEDSIDE. PATIENT HAS EQUAL CHEST RISE WITH COARSE BILATERAL BREATH SOUNDS. SUCTION SMALL AMOUNT OF THICK GREEN SECRETIONS T/O THE NIGHT. NO SOB NOTED. Addendum: 03/14/19 at 0540 by BRENDA HERZOG RT Amended: Links added.
[2019-03-14 07:37] VITALS: BP 116/76
[2019-03-14] MEDS: CRANBERRY D MANNOSE TP SCH (09:00)
[2019-03-14] MEDS: POVIDONE-IODINE OINT 28.4 GM TUBE TP SCH ×2 (09:00→21:21)
[2019-03-14] MEDS: HYDROGEN PEROXIDE 480 ML BOTTLE TP SCH ×2 (09:00→19:49)
[2019-03-14] MEDS: TIZANIDINE HCL 4 MG TABLET GT SCH ×2 (09:00→21:21)
[2019-03-14] MEDS: ZINC SULFATE 220 MG CAPSULE GT SCH (09:00)
[2019-03-14] MEDS: CHLORHEXIDINE GLUCONATE 15 ML UDC MM SCH ×2 (09:00→21:21)
[2019-03-14] MEDS: THERAHONEY GEL 1.5 OZ TUBE TP SCH ×2 (09:00→21:21)
[2019-03-14] MEDS: FERROUS SULFATE UDC 300 MG/5 ML UDC GT SCH (09:38)
[2019-03-14] MEDS: LACTOBACILLUS RHAMNOSUS GG 1 EACH CAP.SPRINK GT SCH ×2 (09:43→17:04)
[2019-03-14] MEDS: DOCUSATE SODIUM LIQ 100 MG/10 ML UDC GT SCH ×2 (09:43→17:04)
[2019-03-14] MEDS: LEVETIRACETAM SOL (5 ML) 100 MG/ML UDC GT SCH ×2 (09:43→21:19)
[2019-03-14] MEDS: METOPROLOL TARTRATE 25 MG TABLET GT SCH ×2 (09:44→21:20)
[2019-03-14] MEDS: HYDROCODONE/APAP 5/325MG 1 EACH TABLET GT SCH ×2 (09:45→21:20)
[2019-03-14] MEDS: PROSOURCE / PROSTAT (PYXIS) 30 ML UDC GT SCH ×3 (09:46→17:05)
[2019-03-14] MEDS: OMEPRAZOLE 20 MG CAPSULE.DR GT SCH ×2 (09:46→21:20)
[2019-03-14] MEDS: TOPIRAMATE 25 MG TABLET GT SCH ×2 (09:47→21:21)
--- NOTE | 2019-03-14 19:49 | NUR ---
RT NOTE: RECEIVED TRACH PT ON [facility] VENT ON NOTED SETTINGS PER MD ORDERS. TRACH IS PATENT AND SECURED. TRACH CARE DONE. UPSET WELDING MACHINE OPERATOR DONE. Q6 BREATHING TX GIVEN WITH NO ADVERSE REACTION NOTED. SX DONE PRN. VENT PLUGGED INTO RED OUTLET. ALARMS ON AND AUDIBLE. KARTIKU BAG @ BEDSIDE. NO RESP DISTRESS AT THIS TIME. WILL CONT TO MONITOR PT. Addendum: 03/15/19 at 0251 by KELLY HOPE RT Amended: Links added.
[2019-03-14 19:55] VITALS: BP 103/74
[2019-03-14] MEDS: MULTIVITAMINS,THERAGRAN 1 UDTAB TABLET GT SCH (21:21)
[2019-03-14] MEDS: SENNOSIDES 8.6 MG TABLET GT SCH (21:21)
[2019-03-15] MEDS: IPRATROPIUM NEB FS 0.5 MG/2.5 ML AMPUL.NEB IH SCH ×4 (02:04→19:54)
[2019-03-15] MEDS: ALBUTEROL FS 2.5 MG/3 ML VIAL.NEB IH SCH ×4 (02:04→19:54)
[2019-03-15] MEDS: ERYTHROMYCIN ETHYLSUCCINATE 200 MG/5 ML SUSPENSION GT SCH ×3 (05:31→21:12)
[2019-03-15] MEDS: BACLOFEN (10 MG) 10 MG TABLET GT SCH ×4 (05:31→23:33)
[2019-03-15] MEDS: METOCLOPRAMIDE HCL 10 MG/10 ML UDC GT SCH ×4 (05:31→23:33)
[2019-03-15] MEDS: SIMETHICONE SUSP 40 MG/0.6 ML BOTTLE PO SCH ×4 (05:31→23:33)
[2019-03-15] MEDS: HYDROGEN PEROXIDE 480 ML BOTTLE TP SCH ×2 (09:00→19:54)
[2019-03-15] MEDS: POVIDONE-IODINE OINT 28.4 GM TUBE TP SCH ×2 (09:00→21:13)
[2019-03-15] MEDS: THERAHONEY GEL 1.5 OZ TUBE TP SCH ×2 (09:00→21:13)
[2019-03-15] MEDS: LACTOBACILLUS RHAMNOSUS GG 1 EACH CAP.SPRINK GT SCH ×2 (09:56→17:57)
[2019-03-15] MEDS: DOCUSATE SODIUM LIQ 100 MG/10 ML UDC GT SCH ×2 (09:56→17:57)
[2019-03-15] MEDS: LEVETIRACETAM SOL (5 ML) 100 MG/ML UDC GT SCH ×2 (09:56→21:12)
[2019-03-15] MEDS: FERROUS SULFATE UDC 300 MG/5 ML UDC GT SCH (09:56)
[2019-03-15] MEDS: OMEPRAZOLE 20 MG CAPSULE.DR GT SCH ×2 (09:57→21:13)
[2019-03-15] MEDS: HYDROCODONE/APAP 5/325MG 1 EACH TABLET GT SCH ×2 (09:57→21:13)
[2019-03-15] MEDS: METOPROLOL TARTRATE 25 MG TABLET GT SCH ×2 (09:57→21:12)
[2019-03-15] MEDS: TOPIRAMATE 25 MG TABLET GT SCH ×2 (09:57→21:13)
[2019-03-15] MEDS: ZINC SULFATE 220 MG CAPSULE GT SCH (09:57)
[2019-03-15] MEDS: CHLORHEXIDINE GLUCONATE 15 ML UDC MM SCH ×2 (09:57→21:13)
[2019-03-15] MEDS: CRANBERRY D MANNOSE TP SCH (09:57)
[2019-03-15] MEDS: PROSOURCE / PROSTAT (PYXIS) 30 ML UDC GT SCH ×3 (09:57→17:57)
[2019-03-15] MEDS: TIZANIDINE HCL 4 MG TABLET GT SCH ×2 (09:57→21:13)
[2019-03-15 10:50] VITALS: BP 144/92
--- NOTE | 2019-03-15 10:52 | NUR ---
PT RECEIVE STABLE ON MV, SETTINGS ARE AC 12 500 +5 @ 40% FIO2, TRACH PATENT AND SECURED, SPARE TRACH AND AMBU BAG IS AT BEDSIDE, ALARMS ARE ON AND AUDIBLE, VENT IS PLUG IN RED OUTLET, WILL CONTINUE TO MONITOR Addendum: 03/15/19 at 1054 by AMANDA GALLO RT Amended: Links added.
--- NOTE | 2019-03-15 15:24 | NUR ---
Dr Ybarra ordered to change Zofran 4 mg IV to G-tube q 6 hours PRN for nausea/vomiting.
[2019-03-15] MEDS ORDERED: ONDANSETRON 4 MG TAB.RAPDIS GT PRN (15:30)
[2019-03-15 21:11] VITALS: BP 110/76
[2019-03-15] MEDS: MULTIVITAMINS,THERAGRAN 1 UDTAB TABLET GT SCH (21:13)
[2019-03-15] MEDS: SENNOSIDES 8.6 MG TABLET GT SCH (21:13)
[2019-03-16] MEDS: IPRATROPIUM NEB FS 0.5 MG/2.5 ML AMPUL.NEB IH SCH ×4 (02:11→19:44)
[2019-03-16] MEDS: ALBUTEROL FS 2.5 MG/3 ML VIAL.NEB IH SCH ×4 (02:11→19:44)
[2019-03-16] MEDS: SIMETHICONE SUSP 40 MG/0.6 ML BOTTLE PO SCH ×4 (05:44→23:43)
[2019-03-16] MEDS: METOCLOPRAMIDE HCL 10 MG/10 ML UDC GT SCH ×4 (05:44→23:43)
[2019-03-16] MEDS: ERYTHROMYCIN ETHYLSUCCINATE 200 MG/5 ML SUSPENSION GT SCH ×3 (05:44→21:08)
[2019-03-16] MEDS: BACLOFEN (10 MG) 10 MG TABLET GT SCH ×4 (05:44→23:43)
[2019-03-16 07:55] VITALS: BP 151/72
--- NOTE | 2019-03-16 09:08 | NUR ---
RT PT RECEIVED ON ABOVE SETTINGS. PT IS TRACHED, PORTEX 8. VENT IS PLUGGED IN TO RED OUTLET. AMBU BAG AT HEAD OF BED. SPARE TRACH AT BEDSIDE. MINIMAL SECRETIONS SUCTIONED. PT IS IN NO APPARENT RESPIRATORY DISTRESS. WILL CONTINUE TO MONITOR. Addendum: 03/16/19 at 0908 by NEDRA RANDOLPH RT Amended: Links added.
[2019-03-16] MEDS: TIZANIDINE HCL 4 MG TABLET GT SCH ×2 (09:48→21:09)
[2019-03-16] MEDS: LACTOBACILLUS RHAMNOSUS GG 1 EACH CAP.SPRINK GT SCH ×2 (09:48→17:24)
[2019-03-16] MEDS: HYDROCODONE/APAP 5/325MG 1 EACH TABLET GT SCH ×2 (09:48→21:09)
[2019-03-16] MEDS: FERROUS SULFATE UDC 300 MG/5 ML UDC GT SCH (09:48)
[2019-03-16] MEDS: OMEPRAZOLE 20 MG CAPSULE.DR GT SCH ×2 (09:48→21:09)
[2019-03-16] MEDS: TOPIRAMATE 25 MG TABLET GT SCH ×2 (09:48→21:09)
[2019-03-16] MEDS: METOPROLOL TARTRATE 25 MG TABLET GT SCH ×2 (09:48→21:08)
[2019-03-16] MEDS: PROSOURCE / PROSTAT (PYXIS) 30 ML UDC GT SCH ×3 (09:48→17:24)
[2019-03-16] MEDS: DOCUSATE SODIUM LIQ 100 MG/10 ML UDC GT SCH ×2 (09:48→17:24)
[2019-03-16] MEDS: LEVETIRACETAM SOL (5 ML) 100 MG/ML UDC GT SCH ×2 (09:48→21:08)
[2019-03-16] MEDS: POVIDONE-IODINE OINT 28.4 GM TUBE TP SCH ×2 (09:49→21:09)
[2019-03-16] MEDS: THERAHONEY GEL 1.5 OZ TUBE TP SCH ×2 (09:49→21:09)
[2019-03-16] MEDS: ZINC SULFATE 220 MG CAPSULE GT SCH (09:49)
[2019-03-16] MEDS: CRANBERRY D MANNOSE TP SCH (09:49)
[2019-03-16] MEDS: CHLORHEXIDINE GLUCONATE 15 ML UDC MM SCH ×2 (09:49→21:09)
[2019-03-16 20:59] VITALS: BP 103/61
[2019-03-16] MEDS: HYDROGEN PEROXIDE 480 ML BOTTLE TP SCH (21:00)
[2019-03-16] MEDS: SENNOSIDES 8.6 MG TABLET GT SCH (21:09)
[2019-03-16] MEDS: MULTIVITAMINS,THERAGRAN 1 UDTAB TABLET GT SCH (21:09)
[2019-03-17] MEDS: ALBUTEROL FS 2.5 MG/3 ML VIAL.NEB IH SCH ×4 (01:30→20:14)
[2019-03-17] MEDS: IPRATROPIUM NEB FS 0.5 MG/2.5 ML AMPUL.NEB IH SCH ×4 (01:30→20:14)
[2019-03-17] MEDS: ERYTHROMYCIN ETHYLSUCCINATE 200 MG/5 ML SUSPENSION GT SCH ×3 (05:46→21:42)
[2019-03-17] MEDS: BACLOFEN (10 MG) 10 MG TABLET GT SCH ×4 (05:46→23:19)
[2019-03-17] MEDS: SIMETHICONE SUSP 40 MG/0.6 ML BOTTLE PO SCH ×4 (05:47→23:19)
[2019-03-17] MEDS: METOCLOPRAMIDE HCL 10 MG/10 ML UDC GT SCH ×4 (05:47→23:19)
[2019-03-17 07:30] VITALS: BP 113/74
[2019-03-17] MEDS: HYDROGEN PEROXIDE 480 ML BOTTLE TP SCH ×2 (07:43→20:14)
[2019-03-17] MEDS: DOCUSATE SODIUM LIQ 100 MG/10 ML UDC GT SCH ×2 (09:11→17:17)
[2019-03-17] MEDS: OMEPRAZOLE 20 MG CAPSULE.DR GT SCH ×2 (09:12→21:43)
[2019-03-17] MEDS: FERROUS SULFATE UDC 300 MG/5 ML UDC GT SCH (09:12)
[2019-03-17] MEDS: THERAHONEY GEL 1.5 OZ TUBE TP SCH ×2 (09:13→21:44)
[2019-03-17] MEDS: PROSOURCE / PROSTAT (PYXIS) 30 ML UDC GT SCH ×3 (09:13→17:19)
[2019-03-17] MEDS: ZINC SULFATE 220 MG CAPSULE GT SCH (09:13)
[2019-03-17] MEDS: CRANBERRY D MANNOSE TP SCH (09:13)
[2019-03-17] MEDS: TIZANIDINE HCL 4 MG TABLET GT SCH ×2 (09:17→21:43)
[2019-03-17] MEDS: CHLORHEXIDINE GLUCONATE 15 ML UDC MM SCH ×2 (09:17→21:44)
[2019-03-17] MEDS: LEVETIRACETAM SOL (5 ML) 100 MG/ML UDC GT SCH ×2 (09:17→21:42)
[2019-03-17] MEDS: LACTOBACILLUS RHAMNOSUS GG 1 EACH CAP.SPRINK GT SCH ×2 (09:17→17:19)
[2019-03-17] MEDS: HYDROCODONE/APAP 5/325MG 1 EACH TABLET GT SCH ×2 (09:18→21:43)
[2019-03-17] MEDS: TOPIRAMATE 25 MG TABLET GT SCH ×2 (09:19→21:43)
[2019-03-17] MEDS: METOPROLOL TARTRATE 25 MG TABLET GT SCH ×2 (09:19→21:43)
[2019-03-17] MEDS: POVIDONE-IODINE OINT 28.4 GM TUBE TP SCH (09:19)
--- NOTE | 2019-03-17 12:42 | NUR ---
Family was not able to attend today's Family Support Group held from 11am-12noon. SW will invite and encourage family to attend April's Family Support Group.
--- NOTE | 2019-03-17 14:29 | NUR ---
Lux Invitation to IDT: ZENIA contacted the pt.s mother, Vilma Beasley [phone] to invite family to attend or participate via phone conference in the IDT Plan of Care Conference being held this Tuesday, March 19, 2019 from 12:30pm-1:30pm in the activities room. Per Vilma she will not be able to attend this meeting but she can make it to the 04/02/19 meeting. Noted Addendum: 03/17/19 at 1431 by BRAEDEN KNUTSON Family Invitation to IDT: ZENIA contacted the pt.s mother, Vilma Beasley [phone] to invite family to attend or participate via phone conference in the IDT Plan of Care Conference being held this Tuesday, March 19, 2019 from 12:30pm-1:30pm in the activities room. Per Vilma she will not be able to attend this meeting but she can make it to the 04/02/19 meeting. Noted
--- NOTE | 2019-03-17 16:58 | NUR ---
RT NOTE RECEIVED PATIENT ON TRACH WITH VENTILATOR. TRACH IS PATENT AND SECURED. VENT ALARMS ARE SET AND AUDIBLE. SPARE TRACH AND AMBU BAG IS AT BEDSIDE. PATIENT HAS EQUAL CHEST RISE WITH COARSE BILATERAL BREATH SOUNDS. SUCTION SMALL AMOUNT OF THICK GREEN/WHITE SECRETIONS TROUGH OUT THE DAY. TRACH CARE WAS PERFORMED. BREATHING TREATMENTS GIVEN WITH NO ADVERSE REACTION. PATIENT IS SYNC AND COMFORTABLE ON THE VENTILATOR. NO SOB NOTED. Addendum: 03/17/19 at 1703 by BRENDA HERZOG RT Amended: Links added.
--- NOTE | 2019-03-17 20:40 | NUR ---
PT RCVD TRACH'D ON MECHANICAL VENT WITH CHARTED SETTINGS. PT ANIKA TX WELL. SX DONE. PT TRACH IS PATENT AND SECURE. VENT ALARMS APPEAR TO BE FUNCTIONING PROPERLY. VENT PLUGGED INTO RED OUTLET. AMBU BAG AT BEDSIDE. NO SOB NOTED. Addendum: 03/17/19 at 2040 by RUBA OSPINA RT Amended: Links added.
[2019-03-17] MEDS: MULTIVITAMINS,THERAGRAN 1 UDTAB TABLET GT SCH (21:43)
[2019-03-17] MEDS: SENNOSIDES 8.6 MG TABLET GT SCH (21:44)
[2019-03-17 22:43] VITALS: BP 121/79
[2019-03-18] MEDS: JEVITY 1.2 CAL 1,000 ML BOTTLE GT PRN (00:39)
[2019-03-18] MEDS: IPRATROPIUM NEB FS 0.5 MG/2.5 ML AMPUL.NEB IH SCH ×4 (01:04→20:13)
[2019-03-18] MEDS: ALBUTEROL FS 2.5 MG/3 ML VIAL.NEB IH SCH ×4 (01:04→20:13)
[2019-03-18] MEDS: BACLOFEN (10 MG) 10 MG TABLET GT SCH ×4 (05:52→23:18)
[2019-03-18] MEDS: SIMETHICONE SUSP 40 MG/0.6 ML BOTTLE PO SCH ×4 (05:52→23:18)
[2019-03-18] MEDS: METOCLOPRAMIDE HCL 10 MG/10 ML UDC GT SCH ×4 (05:52→23:18)
[2019-03-18] MEDS: ERYTHROMYCIN ETHYLSUCCINATE 200 MG/5 ML SUSPENSION GT SCH ×3 (05:52→21:00)
[2019-03-18] MEDS: HYDROGEN PEROXIDE 480 ML BOTTLE TP SCH ×2 (07:36→20:38)
[2019-03-18 07:42] VITALS: BP 123/43
[2019-03-18] MEDS: LACTOBACILLUS RHAMNOSUS GG 1 EACH CAP.SPRINK GT SCH ×2 (09:18→16:16)
[2019-03-18] MEDS: LEVETIRACETAM SOL (5 ML) 100 MG/ML UDC GT SCH ×2 (09:18→21:00)
[2019-03-18] MEDS: DOCUSATE SODIUM LIQ 100 MG/10 ML UDC GT SCH ×2 (09:18→16:16)
[2019-03-18] MEDS: FERROUS SULFATE UDC 300 MG/5 ML UDC GT SCH (09:18)
[2019-03-18] MEDS: HYDROCODONE/APAP 5/325MG 1 EACH TABLET GT SCH ×2 (09:19→21:00)
[2019-03-18] MEDS: METOPROLOL TARTRATE 25 MG TABLET GT SCH ×2 (09:19→21:00)
[2019-03-18] MEDS: ZINC SULFATE 220 MG CAPSULE GT SCH (09:19)
[2019-03-18] MEDS: THERAHONEY GEL 1.5 OZ TUBE TP SCH ×2 (09:19→21:00)
[2019-03-18] MEDS: CRANBERRY D MANNOSE TP SCH (09:19)
[2019-03-18] MEDS: PROSOURCE / PROSTAT (PYXIS) 30 ML UDC GT SCH ×3 (09:19→16:16)
[2019-03-18] MEDS: TIZANIDINE HCL 4 MG TABLET GT SCH ×2 (09:19→21:00)
[2019-03-18] MEDS: CHLORHEXIDINE GLUCONATE 15 ML UDC MM SCH ×2 (09:19→21:00)
[2019-03-18] MEDS: OMEPRAZOLE 20 MG CAPSULE.DR GT SCH ×2 (09:19→21:00)
[2019-03-18] MEDS: TOPIRAMATE 25 MG TABLET GT SCH ×2 (09:19→21:00)
--- NOTE | 2019-03-18 17:20 | NUR ---
RT NOTE RECEIVED PATIENT ON TRACH WITH VENTILATOR. TRACH IS PATENT AND SECURED. VENT ALARMS ARE SET AND AUDIBLE. VENT IS PLUGGED TO RED OUTLET. SPARE TRACH AND AMBU BAG IS AT BEDSIDE. PATIENT HAS EQUAL CHEST RISE WITH COARSE BILATERAL BREATH SOUNDS. SUCTION SMALL AMOUNT OF THICK GREEN/WHITE SECRETIONS TROUGH OUT THE DAY. TRACH CARE WAS PERFORMED. BREATHING TREATMENTS GIVEN WITH NO ADVERSE REACTION. PATIENT IS SYNC AND COMFORTABLE ON THE VENTILATOR. NO SOB NOTED Addendum: 03/18/19 at 1721 by BRENDA HERZOG RT Amended: Links added.
--- NOTE | 2019-03-18 17:33 | NUR ---
Asked Dr Ybarra if pt can be offered flu vaccine now that he is off antibiotics. Dr Ybarra said yes. Spoke with pt's mother regarding flu vaccine. She said pt already received the flu vaccine in [place], but explained to her that pt needs to receive it yearly. Explained to her that pt was admitted here on 01/11/19 and flu vaccines were offered in January so maybe the flu vaccine that pt received was for the previous flu season. She said she will ask her when pt received it.
[2019-03-18 20:26] VITALS: BP 109/56
[2019-03-18] MEDS: Z GUARD REMEDY 4 OZ OINT TP SCH (21:00)
[2019-03-18] MEDS: MULTIVITAMINS,THERAGRAN 1 UDTAB TABLET GT SCH (21:00)
--- NOTE | 2019-03-18 21:26 | NUR ---
RECEIVED PT STABLE ON MV, SETTINGS ARE AC 12 500 +5 @ 40% FIO2, ALARMS ARE ON AND AUDIBLE, VENT PLUG IN RED OUTLET, BACK UP TRACH AND AMBU BAG IS AT BEDSIDE, TRACH PATENT AND SECURED WILL CONTINUE TO MONITOR Addendum: 03/18/19 at 2127 by AMANDA GALLO RT Amended: Links added.
[2019-03-18] MEDS: SENNOSIDES 8.6 MG TABLET GT SCH (22:32)
[2019-03-19] MEDS: IPRATROPIUM NEB FS 0.5 MG/2.5 ML AMPUL.NEB IH SCH ×4 (01:52→20:26)
[2019-03-19] MEDS: ALBUTEROL FS 2.5 MG/3 ML VIAL.NEB IH SCH ×4 (01:52→20:26)
[2019-03-19] MEDS: SIMETHICONE SUSP 40 MG/0.6 ML BOTTLE PO SCH ×4 (05:59→23:25)
[2019-03-19] MEDS: BACLOFEN (10 MG) 10 MG TABLET GT SCH ×4 (05:59→23:25)
[2019-03-19] MEDS: METOCLOPRAMIDE HCL 10 MG/10 ML UDC GT SCH ×4 (05:59→23:25)
[2019-03-19] MEDS: ERYTHROMYCIN ETHYLSUCCINATE 200 MG/5 ML SUSPENSION GT SCH ×3 (05:59→20:58)
[2019-03-19 08:02] VITALS: BP 112/76
--- NOTE | 2019-03-19 08:13 | NUR ---
RT PT RECEIVED ON CURRENT VENT SETTINGS. TRACHED WITH PORTEX 8. VENT PLUGGED IN TO RED OUTLET. HOB AT 30 DEGREES. AMBU BAG AT HEAD OF BED. SPARE TRACH AT HEAD OF BED. MINIMAL SECRETIONS SUCTIONED. NO RESPIRATORY DISTRESS NOTED. WILL CONTINUE TO MONITOR. Addendum: 03/19/19 at 1202 by NEDRA RANDOLPH RT Amended: Links added.
[2019-03-19] MEDS: THERAHONEY GEL 1.5 OZ TUBE TP SCH ×2 (09:00→21:00)
[2019-03-19] MEDS: Z GUARD REMEDY 4 OZ OINT TP SCH ×2 (09:00→21:00)
[2019-03-19] MEDS: FERROUS SULFATE UDC 300 MG/5 ML UDC GT SCH (09:26)
[2019-03-19] MEDS: LACTOBACILLUS RHAMNOSUS GG 1 EACH CAP.SPRINK GT SCH ×2 (09:26→17:20)
[2019-03-19] MEDS: LEVETIRACETAM SOL (5 ML) 100 MG/ML UDC GT SCH ×2 (09:26→20:58)
[2019-03-19] MEDS: DOCUSATE SODIUM LIQ 100 MG/10 ML UDC GT SCH ×2 (09:26→17:20)
[2019-03-19] MEDS: METOPROLOL TARTRATE 25 MG TABLET GT SCH ×2 (09:27→20:58)
[2019-03-19] MEDS: OMEPRAZOLE 20 MG CAPSULE.DR GT SCH ×2 (09:44→20:58)
[2019-03-19] MEDS: PROSOURCE / PROSTAT (PYXIS) 30 ML UDC GT SCH ×3 (09:44→17:20)
[2019-03-19] MEDS: TOPIRAMATE 25 MG TABLET GT SCH ×2 (09:45→20:58)
[2019-03-19] MEDS: ZINC SULFATE 220 MG CAPSULE GT SCH (09:45)
[2019-03-19] MEDS: TIZANIDINE HCL 4 MG TABLET GT SCH ×2 (09:45→20:58)
[2019-03-19] MEDS: CHLORHEXIDINE GLUCONATE 15 ML UDC MM SCH ×2 (09:45→20:59)
[2019-03-19] MEDS: CRANBERRY D MANNOSE TP SCH (09:45)
[2019-03-19] MEDS: HYDROCODONE/APAP 5/325MG 1 EACH TABLET GT SCH ×2 (09:46→20:58)
--- NOTE | 2019-03-19 13:35 | NUR ---
Dr. Warren gave an order for patient to have flu vaccine. Resident's mother consented with the vaccine.
--- NOTE | 2019-03-19 16:04 | NUR ---
Plan of Care Conference took place today. The patients responsible alliance party/mother Vilma Beasley [phone] was not able to attend or participate via phone conference. Charge nurse discussed 03/11 D/C TPN; tolerating GT feeding & medications, GT feeding will be increased to Jevity 1.2 55 ml/hr. x [address] Warren and Interdisciplinary team discussed the plan of care in detail. Current orders as well as treatments and medications were reviewed. See other disciplines IDT notes for further details.
--- NOTE | 2019-03-19 18:13 | NUR ---
Asked TUBE BUFFER Gena Henley if she wants to reculture sacral wound to clear him from isolation. She said no. Resident's mother informed.
[2019-03-19] MEDS: HYDROGEN PEROXIDE 480 ML BOTTLE TP SCH (20:26)
[2019-03-19 20:44] VITALS: BP 109/75
[2019-03-19] MEDS: MULTIVITAMINS,THERAGRAN 1 UDTAB TABLET GT SCH (20:58)
[2019-03-19] MEDS: SENNOSIDES 8.6 MG TABLET GT SCH (21:00)
--- NOTE | 2019-03-19 23:20 | NUR ---
RT RECEIVED PT TRACH'D ON [facility] VENT WITH SETTINGS PER MD ORDER. ATTENDING AMBULATORY CARE DONE. ALARMS ON AND AUDIBLE. SPARE TRACH AND AMBU BAG AT BEDSIDE. TX'S GIVEN ORDERED. NO ADVERSE REACTIONS. SUCTIONED AND MONITORED PRN. NO SOB OR SIGNS OF DISTRESS NOTED AT THIS TIME. WILL CONTINUE TO MONITOR THE PT FOR ANY CHANGES. Addendum: 03/20/19 at 0013 by SARAI STRICKLAND RT Amended: Links added.
[2019-03-19] MEDS: JEVITY 1.2 CAL 1,000 ML BOTTLE GT PRN ×2 (23:26)
[2019-03-20] MEDS: ALBUTEROL FS 2.5 MG/3 ML VIAL.NEB IH SCH ×4 (00:47→20:26)
[2019-03-20] MEDS: IPRATROPIUM NEB FS 0.5 MG/2.5 ML AMPUL.NEB IH SCH ×4 (00:47→20:19)
[2019-03-20] MEDS: SIMETHICONE SUSP 40 MG/0.6 ML BOTTLE PO SCH ×4 (05:14→23:13)
[2019-03-20] MEDS: ERYTHROMYCIN ETHYLSUCCINATE 200 MG/5 ML SUSPENSION GT SCH ×3 (05:14→21:18)
[2019-03-20] MEDS: BACLOFEN (10 MG) 10 MG TABLET GT SCH ×4 (05:14→23:13)
[2019-03-20] MEDS: METOCLOPRAMIDE HCL 10 MG/10 ML UDC GT SCH ×4 (05:14→23:13)
--- NOTE | 2019-03-20 07:01 | NUR ---
Pt tolerated gtf @ 55 cc/hr and reached dose limit with no episode of vomiting and no gastric residual noted. Slept good during shift, head to toe skin assessment done during shift- previous wound to neck noted healed ,no redness to neck area,skin slightly pink. Sloan cath draining well with clear yellow urine no sediments. Noted pt left groin rashes ext to left thigh area, tx initiated . Safety and comfort measures observed,pt's tv on for sensory stimulation and call light within reach.
[2019-03-20 08:00] VITALS: BP 134/79
[2019-03-20] MEDS: HYDROGEN PEROXIDE 480 ML BOTTLE TP SCH ×2 (08:25→20:20)
[2019-03-20] MEDS: THERAHONEY GEL 1.5 OZ TUBE TP SCH ×2 (09:00→21:19)
[2019-03-20] MEDS: DOCUSATE SODIUM LIQ 100 MG/10 ML UDC GT SCH ×2 (09:27→17:09)
[2019-03-20] MEDS: FERROUS SULFATE UDC 300 MG/5 ML UDC GT SCH (09:27)
[2019-03-20] MEDS: OMEPRAZOLE 20 MG CAPSULE.DR GT SCH ×2 (09:28→21:19)
[2019-03-20] MEDS: PROSOURCE / PROSTAT (PYXIS) 30 ML UDC GT SCH ×3 (09:29→17:09)
[2019-03-20] MEDS: ZINC SULFATE 220 MG CAPSULE GT SCH (09:29)
[2019-03-20] MEDS: LACTOBACILLUS RHAMNOSUS GG 1 EACH CAP.SPRINK GT SCH ×2 (09:33→17:09)
[2019-03-20] MEDS: LEVETIRACETAM SOL (5 ML) 100 MG/ML UDC GT SCH ×2 (09:34→21:18)
[2019-03-20] MEDS: METOPROLOL TARTRATE 25 MG TABLET GT SCH ×2 (09:35→21:19)
[2019-03-20] MEDS: TOPIRAMATE 25 MG TABLET GT SCH ×2 (09:36→21:19)
[2019-03-20] MEDS: HYDROCODONE/APAP 5/325MG 1 EACH TABLET GT SCH ×2 (09:36→21:19)
[2019-03-20] MEDS: CRANBERRY D MANNOSE TP SCH (09:37)
[2019-03-20] MEDS: TIZANIDINE HCL 4 MG TABLET GT SCH ×2 (09:37→21:19)
[2019-03-20] MEDS: CHLORHEXIDINE GLUCONATE 15 ML UDC MM SCH ×2 (09:37→21:19)
[2019-03-20] MEDS: Z GUARD REMEDY 4 OZ OINT TP SCH ×2 (09:46→21:19)
[2019-03-20] MEDS: CLOTRIMAZOLE 1% 15 GM TUBE TP SCH ×2 (10:43→21:19)
--- NOTE | 2019-03-20 17:14 | NUR ---
Resident tolerating increased in GT feeding rate (55cc/hr), no nausea and vomiting, no gastric residual. Dr. Dawn, urologist called earlier to ask about patient's urine output and if FC is draining well. Informed MD that F/C draining yellow romario urine but at times with blood tinged which is likely due to slight trauma during turning/positioning of patient. Overall, patient appears more comfortable no straining noted upon urinating and has been afebrile from the time F/C was inserted. Dr. Dawn is pleased.
[2019-03-20] MEDS: JEVITY 1.2 CAL 1,000 ML BOTTLE GT PRN (18:23)
[2019-03-20 20:04] VITALS: BP 117/79
[2019-03-20] MEDS: MULTIVITAMINS,THERAGRAN 1 UDTAB TABLET GT SCH (21:19)
[2019-03-20] MEDS: SENNOSIDES 8.6 MG TABLET GT SCH (21:19)
[2019-03-21] MEDS: ALBUTEROL FS 2.5 MG/3 ML VIAL.NEB IH SCH ×4 (00:35→19:30)
[2019-03-21] MEDS: IPRATROPIUM NEB FS 0.5 MG/2.5 ML AMPUL.NEB IH SCH ×4 (00:35→19:30)
[2019-03-21] MEDS: ERYTHROMYCIN ETHYLSUCCINATE 200 MG/5 ML SUSPENSION GT SCH ×3 (04:54→21:03)
[2019-03-21] MEDS: METOCLOPRAMIDE HCL 10 MG/10 ML UDC GT SCH ×3 (05:06→17:55)
[2019-03-21] MEDS: SIMETHICONE SUSP 40 MG/0.6 ML BOTTLE PO SCH ×3 (05:06→17:55)
[2019-03-21] MEDS: BACLOFEN (10 MG) 10 MG TABLET GT SCH ×3 (05:06→17:55)
[2019-03-21 07:58] VITALS: BP 116/75
[2019-03-21] MEDS: TOPIRAMATE 25 MG TABLET GT SCH ×2 (09:00→21:05)
[2019-03-21] MEDS: THERAHONEY GEL 1.5 OZ TUBE TP SCH ×2 (09:00→21:05)
[2019-03-21] MEDS: CRANBERRY D MANNOSE TP SCH (09:00)
[2019-03-21] MEDS: CLOTRIMAZOLE 1% 15 GM TUBE TP SCH ×2 (09:00→21:05)
[2019-03-21] MEDS: ZINC SULFATE 220 MG CAPSULE GT SCH (09:00)
[2019-03-21] MEDS: DOCUSATE SODIUM LIQ 100 MG/10 ML UDC GT SCH ×2 (09:00→17:55)
[2019-03-21] MEDS: CHLORHEXIDINE GLUCONATE 15 ML UDC MM SCH ×2 (09:00→21:05)
[2019-03-21] MEDS: METOPROLOL TARTRATE 25 MG TABLET GT SCH ×2 (09:00→21:35)
[2019-03-21] MEDS: HYDROCODONE/APAP 5/325MG 1 EACH TABLET GT SCH ×2 (09:00→21:05)
[2019-03-21] MEDS: OMEPRAZOLE 20 MG CAPSULE.DR GT SCH ×2 (09:00→21:05)
[2019-03-21] MEDS: Z GUARD REMEDY 4 OZ OINT TP SCH ×2 (09:00→21:05)
[2019-03-21] MEDS: PROSOURCE / PROSTAT (PYXIS) 30 ML UDC GT SCH ×3 (09:00→17:55)
[2019-03-21] MEDS: LACTOBACILLUS RHAMNOSUS GG 1 EACH CAP.SPRINK GT SCH ×2 (09:00→17:55)
[2019-03-21] MEDS: HYDROGEN PEROXIDE 480 ML BOTTLE TP SCH ×2 (09:00→19:30)
[2019-03-21] MEDS: FERROUS SULFATE UDC 300 MG/5 ML UDC GT SCH (09:00)
[2019-03-21] MEDS: TIZANIDINE HCL 4 MG TABLET GT SCH ×2 (09:00→21:05)
[2019-03-21] MEDS: LEVETIRACETAM SOL (5 ML) 100 MG/ML UDC GT SCH ×2 (09:00→21:03)
[2019-03-21] MEDS ORDERED: INFLUENZA VACCINE 2019-20 0.5 ML DISP.SYRIN IM ONE (11:00)
--- NOTE | 2019-03-21 15:29 | NUR ---
Flu vaccine given in the R deltoid, no reaction noted at this time. Afebrile at 98.8, Resident's father at bedside informed. He also agreed for patient to have a hair cut. Endorsed.
[2019-03-21] MEDS: JEVITY 1.2 CAL 1,000 ML BOTTLE GT PRN (18:00)
[2019-03-21 20:51] VITALS: BP 100/61
[2019-03-21] MEDS: MULTIVITAMINS,THERAGRAN 1 UDTAB TABLET GT SCH (21:05)
[2019-03-21] MEDS: SENNOSIDES 8.6 MG TABLET GT SCH (21:05)
--- NOTE | 2019-03-21 21:21 | NUR ---
RT NOTE RECEIVED PATIENT ON TRACH WITH VENTILATOR. TRACH IS PATENT AND SECURED.VENT IS PLUGGED TO RED OUTLET, ALARMS ARE SET AND AUDIBLE. SPARE TRACH AND BVM IS AT BEDSIDE. PATIENT IS STABLE AND IN SYNC WITH THE VENT. PATIENT HAS EQUAL CHEST RISE AND HAS COARSE BILATERAL BREATH SOUNDS. SUCTION SMALL AMOUNT OF THICK GREEN SECRETIONS. GAVE BREATHING TREATMENT WITH NO ADVERSE REACTION. WILL CONTINUE TO MONITOR. Addendum: 03/21/19 at 2121 by BRENDA HERZOG RT Amended: Links added.
[2019-03-22] MEDS: SIMETHICONE SUSP 40 MG/0.6 ML BOTTLE PO SCH ×5 (00:13→23:36)
[2019-03-22] MEDS: METOCLOPRAMIDE HCL 10 MG/10 ML UDC GT SCH ×5 (00:13→23:36)
[2019-03-22] MEDS: BACLOFEN (10 MG) 10 MG TABLET GT SCH ×5 (00:13→23:36)
[2019-03-22] MEDS: ALBUTEROL FS 2.5 MG/3 ML VIAL.NEB IH SCH ×4 (01:08→19:46)
[2019-03-22] MEDS: IPRATROPIUM NEB FS 0.5 MG/2.5 ML AMPUL.NEB IH SCH ×4 (01:08→19:46)
[2019-03-22] MEDS: ERYTHROMYCIN ETHYLSUCCINATE 200 MG/5 ML SUSPENSION GT SCH ×3 (05:17→21:09)
[2019-03-22] MEDS: CHLORHEXIDINE GLUCONATE 15 ML UDC MM SCH ×2 (09:00→21:09)
[2019-03-22] MEDS: LEVETIRACETAM SOL (5 ML) 100 MG/ML UDC GT SCH ×2 (09:00→21:09)
[2019-03-22] MEDS: CLOTRIMAZOLE 1% 15 GM TUBE TP SCH ×2 (09:00→21:44)
[2019-03-22] MEDS: LACTOBACILLUS RHAMNOSUS GG 1 EACH CAP.SPRINK GT SCH ×2 (09:00→17:00)
[2019-03-22] MEDS: THERAHONEY GEL 1.5 OZ TUBE TP SCH ×2 (09:00→21:44)
[2019-03-22] MEDS: HYDROCODONE/APAP 5/325MG 1 EACH TABLET GT SCH ×2 (09:00→21:09)
[2019-03-22] MEDS: Z GUARD REMEDY 4 OZ OINT TP SCH ×2 (09:00→21:44)
[2019-03-22] MEDS: CRANBERRY D MANNOSE TP SCH (09:00)
[2019-03-22] MEDS: FERROUS SULFATE UDC 300 MG/5 ML UDC GT SCH (09:00)
[2019-03-22] MEDS: ZINC SULFATE 220 MG CAPSULE GT SCH (09:00)
[2019-03-22] MEDS: OMEPRAZOLE 20 MG CAPSULE.DR GT SCH ×2 (09:00→21:09)
[2019-03-22] MEDS: PROSOURCE / PROSTAT (PYXIS) 30 ML UDC GT SCH ×3 (09:00→17:00)
[2019-03-22] MEDS: TOPIRAMATE 25 MG TABLET GT SCH ×2 (09:00→21:09)
[2019-03-22] MEDS: METOPROLOL TARTRATE 25 MG TABLET GT SCH ×2 (09:00→21:09)
[2019-03-22] MEDS: HYDROGEN PEROXIDE 480 ML BOTTLE TP SCH ×2 (09:00→20:19)
[2019-03-22] MEDS: TIZANIDINE HCL 4 MG TABLET GT SCH ×2 (09:00→21:09)
[2019-03-22] MEDS: DOCUSATE SODIUM LIQ 100 MG/10 ML UDC GT SCH ×2 (09:00→17:00)
[2019-03-22 11:33] VITALS: BP 147/55
[2019-03-22] MEDS: JEVITY 1.2 CAL 1,000 ML BOTTLE GT PRN (16:15)
--- NOTE | 2019-03-22 17:53 | NUR ---
No adverse reaction to flu vaccine noted.
--- NOTE | 2019-03-22 19:58 | NUR ---
PT RCVD TRACH'D ON MECHANICAL VENT WITH CHARTED SETTINGS. PT ANIKA TX WELL. SX DONE. PT TRACH IS PATENT AND SECURE. VENT ALARMS APPEAR TO BE FUNCTIONING PROPERLY. VENT PLUGGED INTO RED OUTLET. AMBU BAG AT BEDSIDE. NO SOB NOTED. Addendum: 03/22/19 at 1958 by RUBA OSPINA RT Amended: Links added.
[2019-03-22] MEDS: MULTIVITAMINS,THERAGRAN 1 UDTAB TABLET GT SCH (21:09)
[2019-03-22] MEDS: SENNOSIDES 8.6 MG TABLET GT SCH (21:10)
[2019-03-22 21:32] VITALS: BP 117/74
[2019-03-23] MEDS: IPRATROPIUM NEB FS 0.5 MG/2.5 ML AMPUL.NEB IH SCH ×4 (01:05→19:57)
[2019-03-23] MEDS: ALBUTEROL FS 2.5 MG/3 ML VIAL.NEB IH SCH ×4 (01:05→19:57)
[2019-03-23] MEDS: SIMETHICONE SUSP 40 MG/0.6 ML BOTTLE PO SCH ×4 (05:29→23:55)
[2019-03-23] MEDS: ERYTHROMYCIN ETHYLSUCCINATE 200 MG/5 ML SUSPENSION GT SCH ×3 (05:29→21:29)
[2019-03-23] MEDS: BACLOFEN (10 MG) 10 MG TABLET GT SCH ×4 (05:29→23:55)
[2019-03-23] MEDS: METOCLOPRAMIDE HCL 10 MG/10 ML UDC GT SCH ×4 (05:29→23:55)
[2019-03-23 07:57] VITALS: BP 116/42
[2019-03-23] MEDS: HYDROGEN PEROXIDE 480 ML BOTTLE TP SCH ×2 (09:00→20:10)
[2019-03-23] MEDS: Z GUARD REMEDY 4 OZ OINT TP SCH ×2 (09:00→21:33)
[2019-03-23] MEDS: CRANBERRY D MANNOSE TP SCH (09:00)
[2019-03-23] MEDS: CHLORHEXIDINE GLUCONATE 15 ML UDC MM SCH ×2 (09:00→21:33)
[2019-03-23] MEDS: THERAHONEY GEL 1.5 OZ TUBE TP SCH (09:00)
[2019-03-23] MEDS: LEVETIRACETAM SOL (5 ML) 100 MG/ML UDC GT SCH ×2 (09:54→21:29)
[2019-03-23] MEDS: FERROUS SULFATE UDC 300 MG/5 ML UDC GT SCH (09:54)
[2019-03-23] MEDS: HYDROCODONE/APAP 5/325MG 1 EACH TABLET GT SCH ×2 (09:54→21:31)
[2019-03-23] MEDS: PROSOURCE / PROSTAT (PYXIS) 30 ML UDC GT SCH ×3 (09:54→16:56)
[2019-03-23] MEDS: OMEPRAZOLE 20 MG CAPSULE.DR GT SCH ×2 (09:54→21:32)
[2019-03-23] MEDS: TOPIRAMATE 25 MG TABLET GT SCH ×2 (09:54→21:32)
[2019-03-23] MEDS: DOCUSATE SODIUM LIQ 100 MG/10 ML UDC GT SCH ×2 (09:54→16:56)
[2019-03-23] MEDS: LACTOBACILLUS RHAMNOSUS GG 1 EACH CAP.SPRINK GT SCH ×2 (09:54→16:56)
[2019-03-23] MEDS: METOPROLOL TARTRATE 25 MG TABLET GT SCH ×2 (09:54→21:31)
[2019-03-23] MEDS: ZINC SULFATE 220 MG CAPSULE GT SCH (09:55)
[2019-03-23] MEDS: TIZANIDINE HCL 4 MG TABLET GT SCH ×2 (09:55→21:33)
--- NOTE | 2019-03-23 11:30 | NUR ---
RT PT RECEIVED ON CURRENT SETTINGS. TRACHED WITH PORTEX 8. AMBU BAG AT HEAD OF BED. SPARE TRACH AT BEDSIDE. VENT PLUGGED IN TO RED OUTLET. ALARMS ON AND AUDIBLE. NO RESPIRATORY DISTRESS. WILL CONTINUE TO MONITOR. Addendum: 03/23/19 at 1131 by NEDRA RANDOLPH RT Amended: Links added.
[2019-03-23] MEDS: JEVITY 1.2 CAL 1,000 ML BOTTLE GT PRN (11:44)
--- NOTE | 2019-03-23 17:53 | NUR ---
No adverse reaction to flu vaccine noted.
[2019-03-23 20:17] VITALS: BP 122/79
--- NOTE | 2019-03-23 20:23 | NUR ---
PT RCVD TRACH'D ON MECHANICAL VENT WITH CHARTED SETTINGS. PT ANIKA TX WELL. SX DONE. PT TRACH IS PATENT AND SECURE. VENT ALARMS APPEAR TO BE FUNCTIONING PROPERLY. VENT PLUGGED INTO RED OUTLET. AMBU BAG AT BEDSIDE. NO SOB NOTED. Addendum: 03/23/19 at 2023 by RUBA OSPINA RT Amended: Links added.
[2019-03-23] MEDS: CLOTRIMAZOLE 1% 15 GM TUBE TP SCH (21:29)
[2019-03-23] MEDS: MULTIVITAMINS,THERAGRAN 1 UDTAB TABLET GT SCH (21:32)
[2019-03-23] MEDS: SENNOSIDES 8.6 MG TABLET GT SCH (21:33)
[2019-03-24] MEDS: IPRATROPIUM NEB FS 0.5 MG/2.5 ML AMPUL.NEB IH SCH ×4 (01:30→19:50)
[2019-03-24] MEDS: ALBUTEROL FS 2.5 MG/3 ML VIAL.NEB IH SCH ×4 (01:30→19:50)
[2019-03-24] MEDS: ERYTHROMYCIN ETHYLSUCCINATE 200 MG/5 ML SUSPENSION GT SCH ×3 (05:54→21:04)
[2019-03-24] MEDS: BACLOFEN (10 MG) 10 MG TABLET GT SCH ×4 (05:55→23:32)
[2019-03-24] MEDS: METOCLOPRAMIDE HCL 10 MG/10 ML UDC GT SCH ×4 (05:55→23:32)
[2019-03-24] MEDS: SIMETHICONE SUSP 40 MG/0.6 ML BOTTLE PO SCH ×4 (05:55→23:32)
--- NOTE | 2019-03-24 07:51 | NUR ---
RT PT RECEIVED ON CURRENT SETTINGS. TRACHED WITH PORTEX 8. AMBU BAG AT HEAD OF BED. SPARE TRACH AT BEDSIDE. VENT PLUGGED IN TO RED OUTLET. ALARMS ON AND AUDIBLE. NO RESPIRATORY DISTRESS. WILL CONTINUE TO MONITOR. Addendum: 03/24/19 at 0910 by NEDRA RANDOLPH RT Amended: Links added.
[2019-03-24 07:52] VITALS: BP 112/50
[2019-03-24] MEDS: OMEPRAZOLE 20 MG CAPSULE.DR GT SCH ×2 (09:00→21:05)
[2019-03-24] MEDS: CRANBERRY D MANNOSE TP SCH (09:00)
[2019-03-24] MEDS: LACTOBACILLUS RHAMNOSUS GG 1 EACH CAP.SPRINK GT SCH ×2 (09:00→17:00)
[2019-03-24] MEDS: ZINC SULFATE 220 MG CAPSULE GT SCH (09:00)
[2019-03-24] MEDS: HYDROGEN PEROXIDE 480 ML BOTTLE TP SCH ×2 (09:00→20:35)
[2019-03-24] MEDS: DOCUSATE SODIUM LIQ 100 MG/10 ML UDC GT SCH ×2 (09:00→17:00)
[2019-03-24] MEDS: METOPROLOL TARTRATE 25 MG TABLET GT SCH ×2 (09:00→21:05)
[2019-03-24] MEDS: TOPIRAMATE 25 MG TABLET GT SCH ×2 (09:00→21:05)
[2019-03-24] MEDS: HYDROCODONE/APAP 5/325MG 1 EACH TABLET GT SCH ×2 (09:00→21:05)
[2019-03-24] MEDS: TIZANIDINE HCL 4 MG TABLET GT SCH ×2 (09:00→21:05)
[2019-03-24] MEDS: PROSOURCE / PROSTAT (PYXIS) 30 ML UDC GT SCH ×3 (09:00→17:00)
[2019-03-24] MEDS: FERROUS SULFATE UDC 300 MG/5 ML UDC GT SCH (09:00)
[2019-03-24] MEDS: LEVETIRACETAM SOL (5 ML) 100 MG/ML UDC GT SCH ×2 (09:00→21:05)
[2019-03-24] MEDS: CHLORHEXIDINE GLUCONATE 15 ML UDC MM SCH ×2 (09:00→21:05)
[2019-03-24] MEDS: Z GUARD REMEDY 4 OZ OINT TP SCH ×2 (10:00→21:06)
[2019-03-24] MEDS: CLOTRIMAZOLE 1% 15 GM TUBE TP SCH ×2 (10:00→21:06)
[2019-03-24] MEDS: JEVITY 1.2 CAL 1,000 ML BOTTLE GT PRN (11:32)
--- NOTE | 2019-03-24 15:19 | NUR ---
ZENIA faxed the required daily Clinicals to [facility] Department FAX: [phone]. ZENIA received completed fax receipt.
--- NOTE | 2019-03-24 15:30 | NUR ---
Seen and examined by Asia Jernigan NP no new order given.
[2019-03-24 20:28] VITALS: BP 123/78
--- NOTE | 2019-03-24 20:35 | NUR ---
RT NOTE PT RECEIVED TRACHED ON MECHANICAL VENTILATION. AMBU BAG/BACK UP TRACH @ BEDSIDE. TX GIVEN, NO ADVERSE REACTIONS NOTED. SX DONE, TRACH SECURED AND PATENT. ALARMS ON AND AUDIBLE. VENT PLUGGED TO RED OUTLET. NO SOB NOTED AT THIS TIME. WILL MONITOR. Addendum: 03/24/19 at 2035 by JAIRO KOO RT Amended: Links added.
[2019-03-24] MEDS: MULTIVITAMINS,THERAGRAN 1 UDTAB TABLET GT SCH (21:05)
[2019-03-24] MEDS: SENNOSIDES 8.6 MG TABLET GT SCH (21:06)
[2019-03-25] MEDS: IPRATROPIUM NEB FS 0.5 MG/2.5 ML AMPUL.NEB IH SCH ×4 (01:45→19:30)
[2019-03-25] MEDS: ALBUTEROL FS 2.5 MG/3 ML VIAL.NEB IH SCH ×4 (01:45→19:30)
[2019-03-25] MEDS: METOCLOPRAMIDE HCL 10 MG/10 ML UDC GT SCH ×4 (05:36→23:37)
[2019-03-25] MEDS: ERYTHROMYCIN ETHYLSUCCINATE 200 MG/5 ML SUSPENSION GT SCH ×3 (05:36→20:41)
[2019-03-25] MEDS: SIMETHICONE SUSP 40 MG/0.6 ML BOTTLE PO SCH ×4 (05:36→23:37)
[2019-03-25] MEDS: BACLOFEN (10 MG) 10 MG TABLET GT SCH ×4 (05:36→23:37)
[2019-03-25 07:44] VITALS: BP 110/77
[2019-03-25] MEDS: CLOTRIMAZOLE 1% 15 GM TUBE TP SCH ×2 (09:30→20:45)
[2019-03-25] MEDS: Z GUARD REMEDY 4 OZ OINT TP SCH ×2 (09:30→20:45)
[2019-03-25] MEDS: DOCUSATE SODIUM LIQ 100 MG/10 ML UDC GT SCH ×2 (09:55→17:51)
[2019-03-25] MEDS: OMEPRAZOLE 20 MG CAPSULE.DR GT SCH ×2 (09:55→20:44)
[2019-03-25] MEDS: TOPIRAMATE 25 MG TABLET GT SCH ×2 (09:55→20:44)
[2019-03-25] MEDS: METOPROLOL TARTRATE 25 MG TABLET GT SCH ×2 (09:55→20:42)
[2019-03-25] MEDS: CHLORHEXIDINE GLUCONATE 15 ML UDC MM SCH ×2 (09:55→20:44)
[2019-03-25] MEDS: LEVETIRACETAM SOL (5 ML) 100 MG/ML UDC GT SCH ×2 (09:55→20:41)
[2019-03-25] MEDS: LACTOBACILLUS RHAMNOSUS GG 1 EACH CAP.SPRINK GT SCH ×2 (09:55→17:51)
[2019-03-25] MEDS: TIZANIDINE HCL 4 MG TABLET GT SCH ×2 (09:55→20:44)
[2019-03-25] MEDS: ZINC SULFATE 220 MG CAPSULE GT SCH (09:55)
[2019-03-25] MEDS: FERROUS SULFATE UDC 300 MG/5 ML UDC GT SCH (09:55)
[2019-03-25] MEDS: HYDROCODONE/APAP 5/325MG 1 EACH TABLET GT SCH ×2 (09:55→20:44)
[2019-03-25] MEDS: PROSOURCE / PROSTAT (PYXIS) 30 ML UDC GT SCH ×3 (09:55→17:51)
[2019-03-25] MEDS: CRANBERRY D MANNOSE TP SCH (09:56)
[2019-03-25] MEDS: HYDROGEN PEROXIDE 480 ML BOTTLE TP SCH ×2 (14:15→20:45)
--- NOTE | 2019-03-25 14:43 | NUR ---
RT NOTE: PATIENT RECEIVED TRACHED ON MECHANICAL VENT. ALARMS VERIFIED AND AUDIBLE. SUCTIONED AND LAVAGED MODERATE- LARGE AMOUNT OF THICK YELOW SECRETIONS. VENT PLUGGED INTO RED OUTLET. AMBU BAG AND NEW TRACH AT [facility].
--- NOTE | 2019-03-25 16:19 | NUR ---
ZENIA faxed the required daily Clinicals to [facility] Department FAX: [phone]. ZENIA received completed fax receipt.
--- NOTE | 2019-03-25 19:30 | NUR ---
Seen by DENNIS Jernigan no new orders.
[2019-03-25 20:06] VITALS: BP 123/83
[2019-03-25] MEDS: MULTIVITAMINS,THERAGRAN 1 UDTAB TABLET GT SCH (20:44)
[2019-03-25] MEDS: SENNOSIDES 8.6 MG TABLET GT SCH (21:09)
--- NOTE | 2019-03-25 21:15 | NUR ---
PT RECEIVE STABLE ON MV, SETTINGS ARE AC 12 500 +5 40% FIO2, TRACH PATENT AND SECURED, VENT PLUG IN TO RED OUTLET, BACK UP TRACH AND AMBU BAG IS BEDSIDE, WILL CONTINUE TO MONITOR Addendum: 03/25/19 at 2116 by AMANDA GALLO RT Amended: Links added.
[2019-03-26] MEDS: ALBUTEROL FS 2.5 MG/3 ML VIAL.NEB IH SCH ×4 (01:15→20:02)
[2019-03-26] MEDS: IPRATROPIUM NEB FS 0.5 MG/2.5 ML AMPUL.NEB IH SCH ×4 (01:15→20:02)
[2019-03-26] MEDS: SIMETHICONE SUSP 40 MG/0.6 ML BOTTLE PO SCH ×4 (05:11→23:36)
[2019-03-26] MEDS: ERYTHROMYCIN ETHYLSUCCINATE 200 MG/5 ML SUSPENSION GT SCH ×3 (05:11→21:35)
[2019-03-26] MEDS: METOCLOPRAMIDE HCL 10 MG/10 ML UDC GT SCH ×4 (05:11→23:36)
[2019-03-26] MEDS: BACLOFEN (10 MG) 10 MG TABLET GT SCH ×4 (05:11→23:36)
[2019-03-26 07:53] VITALS: BP 114/74
[2019-03-26] MEDS: HYDROGEN PEROXIDE 480 ML BOTTLE TP SCH ×2 (08:20→20:02)
[2019-03-26] MEDS: CHLORHEXIDINE GLUCONATE 15 ML UDC MM SCH ×2 (09:00→21:36)
[2019-03-26] MEDS: LACTOBACILLUS RHAMNOSUS GG 1 EACH CAP.SPRINK GT SCH ×2 (09:49→16:37)
[2019-03-26] MEDS: LEVETIRACETAM SOL (5 ML) 100 MG/ML UDC GT SCH ×2 (09:49→21:35)
[2019-03-26] MEDS: DOCUSATE SODIUM LIQ 100 MG/10 ML UDC GT SCH ×2 (09:49→16:37)
[2019-03-26] MEDS: OMEPRAZOLE 20 MG CAPSULE.DR GT SCH ×2 (09:49→21:36)
[2019-03-26] MEDS: FERROUS SULFATE UDC 300 MG/5 ML UDC GT SCH (09:49)
[2019-03-26] MEDS: PROSOURCE / PROSTAT (PYXIS) 30 ML UDC GT SCH ×3 (09:49→16:37)
[2019-03-26] MEDS: TIZANIDINE HCL 4 MG TABLET GT SCH ×2 (09:50→21:36)
[2019-03-26] MEDS: ZINC SULFATE 220 MG CAPSULE GT SCH (09:50)
[2019-03-26] MEDS: CRANBERRY D MANNOSE TP SCH (09:50)
[2019-03-26] MEDS: HYDROCODONE/APAP 5/325MG 1 EACH TABLET GT SCH ×2 (09:50→21:36)
[2019-03-26] MEDS: TOPIRAMATE 25 MG TABLET GT SCH ×2 (09:54→21:36)
[2019-03-26] MEDS: Z GUARD REMEDY 4 OZ OINT TP SCH ×2 (09:55→21:36)
[2019-03-26] MEDS: METOPROLOL TARTRATE 25 MG TABLET GT SCH ×2 (09:55→21:35)
[2019-03-26] MEDS: CLOTRIMAZOLE 1% 15 GM TUBE TP SCH ×2 (09:55→21:36)
[2019-03-26] MEDS: JEVITY 1.2 CAL 1,000 ML BOTTLE GT PRN (11:00)
--- NOTE | 2019-03-26 11:45 | NUR ---
Family Invitation to Holiday Lunch-In and IDT: Olive Pitter contacted the patients responsible green party/Mother, Vilma Beasley [phone] to invite her and her , Larry Beasley to attend the Interdisciplinary Plan of Care Conference taking place 04/02/19 from 12:30pm-1:30pm and the Family Holiday Lunch-In taking place 04/01/19 from 11:30pm-1:00pm. Call went to voicemail and SW relayed above stated information with call back number.
--- NOTE | 2019-03-26 14:53 | NUR ---
ZENIA faxed the required daily Clinicals to [facility] Department TEL: [phone] FAX: [phone]. ZENIA received completed fax receipt.
--- NOTE | 2019-03-26 14:59 | NUR ---
Pt received trach'd and on [facility] vent w charted settings.Vent is plugged into red out w alarms set and audible. Trach is secure and patent. Bmv @ [employer]. Pt is stable. No resp distress or sob noted t/o shift. Will continue to monitor. Addendum: 03/26/19 at 1511 by CLAUDIA CULP RT Amended: Links added.
[2019-03-26 20:53] VITALS: BP 126/79
[2019-03-26] MEDS: MULTIVITAMINS,THERAGRAN 1 UDTAB TABLET GT SCH (21:36)
[2019-03-26] MEDS: SENNOSIDES 8.6 MG TABLET GT SCH (21:36)
--- NOTE | 2019-03-26 23:08 | NUR ---
PT RECEIVE STABLE ON MV, SETTINGS ARE AC 12 500 +5 40% FIO2, ALARMS ARE ON AND AUDIBLE, TRACH PATENT AND SECURED, EZEE YOVANY AND LUCIA VERA IS AT BEDSIDE, WILL CONTINUE TO MONITOR Addendum: 03/26/19 at 2309 by AMANDA GALLO RT Amended: Links added.
[2019-03-27] MEDS: IPRATROPIUM NEB FS 0.5 MG/2.5 ML AMPUL.NEB IH SCH ×4 (01:57→20:04)
[2019-03-27] MEDS: ALBUTEROL FS 2.5 MG/3 ML VIAL.NEB IH SCH ×4 (01:57→20:04)
[2019-03-27] MEDS: METOCLOPRAMIDE HCL 10 MG/10 ML UDC GT SCH ×4 (05:48→23:09)
[2019-03-27] MEDS: ERYTHROMYCIN ETHYLSUCCINATE 200 MG/5 ML SUSPENSION GT SCH ×3 (05:48→20:34)
[2019-03-27] MEDS: BACLOFEN (10 MG) 10 MG TABLET GT SCH ×4 (05:48→23:09)
[2019-03-27] MEDS: SIMETHICONE SUSP 40 MG/0.6 ML BOTTLE PO SCH ×4 (05:48→23:09)
[2019-03-27] MEDS: JEVITY 1.2 CAL 1,000 ML BOTTLE GT PRN (05:48)
[2019-03-27 08:06] VITALS: BP 139/77
[2019-03-27] MEDS: HYDROGEN PEROXIDE 480 ML BOTTLE TP SCH ×2 (08:11→21:48)
[2019-03-27] MEDS: CHLORHEXIDINE GLUCONATE 15 ML UDC MM SCH ×2 (09:00→20:35)
--- NOTE | 2019-03-27 09:25 | NUR ---
Notified Dr. Dawn, urologist that patient's enamorado catheter is by passing. He said to irrigate the catheter with NS as it gets clogged at times. He said that it may need to be change sometime in the future.
[2019-03-27] MEDS: FERROUS SULFATE UDC 300 MG/5 ML UDC GT SCH (09:37)
[2019-03-27] MEDS: HYDROCODONE/APAP 5/325MG 1 EACH TABLET GT SCH ×2 (09:37→20:34)
[2019-03-27] MEDS: LEVETIRACETAM SOL (5 ML) 100 MG/ML UDC GT SCH ×2 (09:37→20:34)
[2019-03-27] MEDS: METOPROLOL TARTRATE 25 MG TABLET GT SCH ×2 (09:37→20:34)
[2019-03-27] MEDS: DOCUSATE SODIUM LIQ 100 MG/10 ML UDC GT SCH ×2 (09:37→16:34)
[2019-03-27] MEDS: LACTOBACILLUS RHAMNOSUS GG 1 EACH CAP.SPRINK GT SCH ×2 (09:37→16:34)
[2019-03-27] MEDS: TOPIRAMATE 25 MG TABLET GT SCH ×2 (09:38→20:34)
[2019-03-27] MEDS: CLOTRIMAZOLE 1% 15 GM TUBE TP SCH ×2 (09:38→20:35)
[2019-03-27] MEDS: OMEPRAZOLE 20 MG CAPSULE.DR GT SCH ×2 (09:38→20:34)
[2019-03-27] MEDS: PROSOURCE / PROSTAT (PYXIS) 30 ML UDC GT SCH ×3 (09:38→16:34)
[2019-03-27] MEDS: ZINC SULFATE 220 MG CAPSULE GT SCH (09:38)
[2019-03-27] MEDS: Z GUARD REMEDY 4 OZ OINT TP SCH ×2 (09:38→20:35)
[2019-03-27] MEDS: CRANBERRY D MANNOSE TP SCH (09:38)
[2019-03-27] MEDS: TIZANIDINE HCL 4 MG TABLET GT SCH ×2 (09:38→20:35)
--- NOTE | 2019-03-27 16:14 | NUR ---
RT NOTES TRACH TUBE IN PLACE, PATENT, AND SECURED WITH TRACH TIE. RECEIVED PT ON VENT WITH ORDERED SETTINGS. ALARMS ON AND AUDIBLE. VENT PLUGGED IN TO THE RED OUTLET. BACK UP TRACH, AND AMBU BAG BY THE BEDSIDE. NO SIGNS OF ANY DISTRESS AT THIS TIME. Addendum: 03/27/19 at 1614 by KATELYN HUYNH RT Amended: Links added.
--- NOTE | 2019-03-27 17:30 | NUR ---
Informed Dr. Dawn that upon irrigating patient's Sloan catheter, there is resistance encountered when flushing it with NS however, urine is seen draining and able to aspirate catheter well. Patient also noted to be straining while urinating. According to Dr. Dawn he will see patient tomorrow. Resident's mother Vilma and father informed of above.
[2019-03-27] MEDS: MULTIVITAMINS,THERAGRAN 1 UDTAB TABLET GT SCH (20:34)
[2019-03-27 20:58] VITALS: BP 117/74
[2019-03-27] MEDS: SENNOSIDES 8.6 MG TABLET GT SCH (21:24)
[2019-03-28] MEDS: IPRATROPIUM NEB FS 0.5 MG/2.5 ML AMPUL.NEB IH SCH ×4 (01:59→20:13)
[2019-03-28] MEDS: ALBUTEROL FS 2.5 MG/3 ML VIAL.NEB IH SCH ×4 (01:59→20:13)
--- NOTE | 2019-03-28 03:51 | NUR ---
RT NOTES: PT RECEIVED TRACHED ON [facility] VENT ON CHARTED SETTINGS. NO SIGNS OF RESP DISTRESS NOTED T/O SHIFT. PT SUCTIONED. FRANCHISE MANAGER DONE. PT RECEIVED ORDERED HHN TXS. ALARMS SET AND AUDIBLE. AMBUBAG AND SPARE TRACH PRESENT. VENT CONNECTED TO RED OUTLET. WILL CONT TO MONITOR. Addendum: 03/28/19 at 0447 by MARIA LUISA RODGERS RT Amended: Links added.
[2019-03-28] MEDS: ERYTHROMYCIN ETHYLSUCCINATE 200 MG/5 ML SUSPENSION GT SCH ×3 (05:07→21:06)
[2019-03-28] MEDS: JEVITY 1.2 CAL 1,000 ML BOTTLE GT PRN (05:07)
[2019-03-28] MEDS: BACLOFEN (10 MG) 10 MG TABLET GT SCH ×4 (05:07→23:59)
[2019-03-28] MEDS: SIMETHICONE SUSP 40 MG/0.6 ML BOTTLE PO SCH ×3 (05:07→18:04)
[2019-03-28] MEDS: METOCLOPRAMIDE HCL 10 MG/10 ML UDC GT SCH ×4 (05:07→23:59)
--- NOTE | 2019-03-28 06:18 | NUR ---
Pt noted with no urine draining to enamorado- unable to flush enamorado noted with resistance, 3 x diaper wet noted , episode of some facial grimacing and flushing noted last night, however pt slept mostly during shift- also noted pt with right buttock excoriation, tx initiated. Per viscose cellar charge hand nurse yesterday will come today to see pt- check pt's enamorado as well. Will endorse pt to oncoming nurse. Pt kept clean and dry, repositioned routinely and Q 2hrs. Safety measures noted.
[2019-03-28 07:44] VITALS: BP 125/85
[2019-03-28] MEDS: DOCUSATE SODIUM LIQ 100 MG/10 ML UDC GT SCH ×2 (08:07→16:29)
[2019-03-28] MEDS: LACTOBACILLUS RHAMNOSUS GG 1 EACH CAP.SPRINK GT SCH ×2 (08:07→16:29)
[2019-03-28] MEDS: METOPROLOL TARTRATE 25 MG TABLET GT SCH ×2 (08:08→21:07)
[2019-03-28] MEDS: LEVETIRACETAM SOL (5 ML) 100 MG/ML UDC GT SCH ×2 (08:08→21:06)
[2019-03-28] MEDS: FERROUS SULFATE UDC 300 MG/5 ML UDC GT SCH (08:08)
[2019-03-28] MEDS: HYDROCODONE/APAP 5/325MG 1 EACH TABLET GT SCH ×2 (08:09→21:08)
[2019-03-28] MEDS: TOPIRAMATE 25 MG TABLET GT SCH ×2 (08:09→21:07)
[2019-03-28] MEDS: OMEPRAZOLE 20 MG CAPSULE.DR GT SCH ×2 (08:10→21:49)
[2019-03-28] MEDS: ZINC SULFATE 220 MG CAPSULE GT SCH (08:10)
[2019-03-28] MEDS: CHLORHEXIDINE GLUCONATE 15 ML UDC MM SCH ×2 (08:10→21:09)
[2019-03-28] MEDS: TIZANIDINE HCL 4 MG TABLET GT SCH ×2 (08:10→21:09)
[2019-03-28] MEDS: PROSOURCE / PROSTAT (PYXIS) 30 ML UDC GT SCH ×3 (08:12→16:29)
[2019-03-28] MEDS: CRANBERRY D MANNOSE TP SCH (08:12)
[2019-03-28] MEDS: HYDROGEN PEROXIDE 480 ML BOTTLE TP SCH ×2 (08:19→21:35)
[2019-03-28] MEDS: CLOTRIMAZOLE 1% 15 GM TUBE TP SCH ×2 (09:00→21:10)
[2019-03-28] MEDS: Z GUARD REMEDY 4 OZ OINT TP SCH ×3 (09:00→21:10)
--- NOTE | 2019-03-28 14:59 | NUR ---
Seen and examined by Dr. Skip Dawn, enamorado catheter was clogged, urine leaking around it, catheter was changed to norwegian #14, with minimal bleeding, enamorado irrigation was done, patient tolerated well, no facial grimacing noted, will continue to monitor urine output and drainage.
--- NOTE | 2019-03-28 17:27 | NUR ---
RT NOTE RECEIVED PATIENT ON TRACH WITH VENTILATOR. TRACH IS PATENT AND SECURED.VENT IS PLUGGED TO RED OUTLET, ALARMS ARE SET AND AUDIBLE. SPARE TRACH AND BVM IS AT BEDSIDE. PATIENT IS STABLE AND IN SYNC WITH THE VENT. PATIENT HAS EQUAL CHEST RISE AND HAS COARSE BILATERAL BREATH SOUNDS. SUCTION SMALL AMOUNT OF THICK GREEN SECRETIONS TROUGH OUT THE DAY. GAVE BREATHING TREATMENTS WITH NO ADVERSE REACTION. Addendum: 03/28/19 at 1728 by BRENDA HERZOG RT Amended: Links added.
[2019-03-28 21:01] VITALS: BP 122/73
[2019-03-28] MEDS: MULTIVITAMINS,THERAGRAN 1 UDTAB TABLET GT SCH (21:08)
[2019-03-28] MEDS: SENNOSIDES 8.6 MG TABLET GT SCH (21:10)
[2019-03-29] MEDS: ALBUTEROL FS 2.5 MG/3 ML VIAL.NEB IH SCH ×4 (02:05→20:30)
[2019-03-29] MEDS: IPRATROPIUM NEB FS 0.5 MG/2.5 ML AMPUL.NEB IH SCH ×4 (02:05→20:30)
[2019-03-29] MEDS: JEVITY 1.2 CAL 1,000 ML BOTTLE GT PRN (04:04)
[2019-03-29] MEDS: ERYTHROMYCIN ETHYLSUCCINATE 200 MG/5 ML SUSPENSION GT SCH ×3 (05:26→21:00)
[2019-03-29] MEDS: METOCLOPRAMIDE HCL 10 MG/10 ML UDC GT SCH ×3 (05:26→17:14)
[2019-03-29] MEDS: BACLOFEN (10 MG) 10 MG TABLET GT SCH ×3 (05:26→17:14)
[2019-03-29] MEDS: SIMETHICONE SUSP 40 MG/0.6 ML BOTTLE PO SCH ×4 (05:27→17:14)
[2019-03-29 07:59] VITALS: BP 122/98
[2019-03-29] MEDS: HYDROGEN PEROXIDE 480 ML BOTTLE TP SCH ×2 (08:20→21:00)
--- NOTE | 2019-03-29 08:38 | NUR ---
Seen by Dr Corey Woodard. He saw pt's sacral wound and right buttock excoriation. He said to apply Z-guard on the right buttock. Pt already has a treatment order to apply Z-guard and Mepilex. Dr Nicole ordered Botox 500 units for treatment of BUE and BLE contractures.
[2019-03-29] MEDS: DOCUSATE SODIUM LIQ 100 MG/10 ML UDC GT SCH ×2 (09:54→16:31)
[2019-03-29] MEDS: LACTOBACILLUS RHAMNOSUS GG 1 EACH CAP.SPRINK GT SCH ×2 (09:54→16:31)
[2019-03-29] MEDS: LEVETIRACETAM SOL (5 ML) 100 MG/ML UDC GT SCH ×2 (09:54→21:00)
[2019-03-29] MEDS: FERROUS SULFATE UDC 300 MG/5 ML UDC GT SCH (09:54)
[2019-03-29] MEDS: CRANBERRY D MANNOSE TP SCH (09:55)
[2019-03-29] MEDS: METOPROLOL TARTRATE 25 MG TABLET GT SCH ×2 (09:55→21:00)
[2019-03-29] MEDS: HYDROCODONE/APAP 5/325MG 1 EACH TABLET GT SCH ×2 (09:55→21:01)
[2019-03-29] MEDS: ZINC SULFATE 220 MG CAPSULE GT SCH (09:55)
[2019-03-29] MEDS: CHLORHEXIDINE GLUCONATE 15 ML UDC MM SCH ×2 (09:55→21:03)
[2019-03-29] MEDS: TIZANIDINE HCL 4 MG TABLET GT SCH ×2 (09:55→21:02)
[2019-03-29] MEDS: TOPIRAMATE 25 MG TABLET GT SCH ×2 (09:55→21:02)
[2019-03-29] MEDS: PROSOURCE / PROSTAT (PYXIS) 30 ML UDC GT SCH ×3 (09:55→16:31)
[2019-03-29] MEDS: OMEPRAZOLE 20 MG CAPSULE.DR GT SCH ×2 (09:55→21:01)
[2019-03-29] MEDS: Z GUARD REMEDY 4 OZ OINT TP SCH ×4 (09:56→21:03)
[2019-03-29] MEDS: CLOTRIMAZOLE 1% 15 GM TUBE TP SCH ×2 (09:56→21:03)
--- NOTE | 2019-03-29 12:09 | NUR ---
[facility] pharmacist Patsy said Botox will not be provided for pt since it is not covered by insurance. Notified Dr Corey Woodard. Also informed Dr Ybarra this morning that Dr Corey Woodard ordered Botox for contractures. Dr Ybarra said pt is already very contracted and it might already be too late for Botox.
[2019-03-29 20:45] VITALS: BP 124/79
[2019-03-29] MEDS: MULTIVITAMINS,THERAGRAN 1 UDTAB TABLET GT SCH (21:01)
[2019-03-29] MEDS: SENNOSIDES 8.6 MG TABLET GT SCH (21:03)
--- NOTE | 2019-03-29 23:38 | NUR ---
RT NOTE Pt rec'd trached on [facility] vent on AC mode. No resp distress or sob noted. trach is patent and secured. Sx'd for thick mod amt of pale yellow secretions. Alarms are set and audible. Vent plugged into red outlet. Ambu bag bedside. Will continue to monitor closely. Addendum: 03/29/19 at 2338 by YOVANA DE LA GARZA RT Amended: Links added.
[2019-03-30] MEDS: SIMETHICONE SUSP 40 MG/0.6 ML BOTTLE PO SCH ×4 (00:23→23:37)
[2019-03-30] MEDS: BACLOFEN (10 MG) 10 MG TABLET GT SCH ×4 (00:23→23:37)
[2019-03-30] MEDS: METOCLOPRAMIDE HCL 10 MG/10 ML UDC GT SCH ×4 (00:23→23:37)
[2019-03-30] MEDS: ALBUTEROL FS 2.5 MG/3 ML VIAL.NEB IH SCH ×4 (01:48→20:05)
[2019-03-30] MEDS: IPRATROPIUM NEB FS 0.5 MG/2.5 ML AMPUL.NEB IH SCH ×4 (01:48→20:05)
--- NOTE | 2019-03-30 08:25 | NUR ---
RT PT RECEIVED ON CURRENT VENT SETTINGS. TRACHED WITH PORTEX 8. VENT PLUGGED IN TO RED OUTLET. AMBU BAG AT HEAD OF BED. SPARE TRACH AT BEDSIDE. ALARMS ON AND AUDIBLE. NO RESPIRATORY DISTRESS. HEAD OF BED AT 30 DEGREES. WILL CONTINUE TO MONITOR. Addendum: 03/30/19 at 1628 by NEDRA RANDOLPH RT Amended: Links added.
[2019-03-30] MEDS: HYDROGEN PEROXIDE 480 ML BOTTLE TP SCH ×2 (09:19→21:00)
[2019-03-30] MEDS: LEVETIRACETAM SOL (5 ML) 100 MG/ML UDC GT SCH ×2 (09:24→20:59)
[2019-03-30] MEDS: METOPROLOL TARTRATE 25 MG TABLET GT SCH ×2 (09:24→20:59)
[2019-03-30] MEDS: FERROUS SULFATE UDC 300 MG/5 ML UDC GT SCH (09:24)
[2019-03-30] MEDS: DOCUSATE SODIUM LIQ 100 MG/10 ML UDC GT SCH ×2 (09:24→17:05)
[2019-03-30] MEDS: LACTOBACILLUS RHAMNOSUS GG 1 EACH CAP.SPRINK GT SCH ×2 (09:24→17:05)
[2019-03-30] MEDS: CHLORHEXIDINE GLUCONATE 15 ML UDC MM SCH ×2 (09:25→20:59)
[2019-03-30] MEDS: CRANBERRY D MANNOSE TP SCH (09:25)
[2019-03-30] MEDS: CLOTRIMAZOLE 1% 15 GM TUBE TP SCH ×2 (09:25→21:50)
[2019-03-30] MEDS: OMEPRAZOLE 20 MG CAPSULE.DR GT SCH ×2 (09:25→20:59)
[2019-03-30] MEDS: Z GUARD REMEDY 4 OZ OINT TP SCH ×4 (09:25→21:50)
[2019-03-30] MEDS: TIZANIDINE HCL 4 MG TABLET GT SCH ×2 (09:25→20:59)
[2019-03-30] MEDS: HYDROCODONE/APAP 5/325MG 1 EACH TABLET GT SCH ×2 (09:25→20:59)
[2019-03-30] MEDS: ZINC SULFATE 220 MG CAPSULE GT SCH (09:25)
[2019-03-30] MEDS: PROSOURCE / PROSTAT (PYXIS) 30 ML UDC GT SCH ×3 (09:25→17:05)
[2019-03-30] MEDS: TOPIRAMATE 25 MG TABLET GT SCH ×2 (09:25→20:59)
[2019-03-30] MEDS: ERYTHROMYCIN ETHYLSUCCINATE 200 MG/5 ML SUSPENSION GT SCH ×2 (12:28→20:59)
[2019-03-30 12:42] VITALS: BP 132/78
--- NOTE | 2019-03-30 16:21 | NUR ---
[facility] (c/o [facility]) said pt's medications, including Botox, are not covered by his insurance. Notified Dr Corey Woodard. Addendum: 03/30/19 at 1622 by NANI NINA RN Notified pt's mother.
--- NOTE | 2019-03-30 16:23 | NUR ---
Received order from DENNIS Avery to reculture sacral wound for ESBL clearance.
[2019-03-30] MEDS: MULTIVITAMINS,THERAGRAN 1 UDTAB TABLET GT SCH (20:59)
[2019-03-30 21:01] VITALS: BP 116/72
--- NOTE | 2019-03-30 21:30 | NUR ---
RN NOTES Seen and examined by Dr. Dawn with new order for urine c/s and to start pt on Rocephine 1gm IVPB q24hr x 3 days for presumed UTI, noted and carried out.
[2019-03-30] MEDS: SENNOSIDES 8.6 MG TABLET GT SCH (21:50)
[2019-03-30] MEDS: CEFTRIAXONE 1 G in IV D5W 50 ML IV SCH (22:00)
--- NOTE | 2019-03-30 22:00 | NUR ---
RN NOTES Urine collected from f/c port, aseptic technique observed. Collected sacral wound specimen for MRSA clearance and sent to lab. Started pt on Rocephin 1gm IVPB via right femoral central line, as ordered with no A/R noted.
[2019-03-30] MEDS ORDERED: CEFTRIAXONE 2 G VIAL ONE (23:20)
[2019-03-31] MEDS: JEVITY 1.2 CAL 1,000 ML BOTTLE GT PRN ×2 (00:41→17:28)
[2019-03-31] MEDS: ALBUTEROL FS 2.5 MG/3 ML VIAL.NEB IH SCH ×4 (01:32→19:38)
[2019-03-31] MEDS: IPRATROPIUM NEB FS 0.5 MG/2.5 ML AMPUL.NEB IH SCH ×4 (01:32→19:38)
[2019-03-31] MEDS: BACLOFEN (10 MG) 10 MG TABLET GT SCH ×4 (05:43→23:49)
[2019-03-31] MEDS: ERYTHROMYCIN ETHYLSUCCINATE 200 MG/5 ML SUSPENSION GT SCH ×3 (05:43→21:09)
[2019-03-31] MEDS: SIMETHICONE SUSP 40 MG/0.6 ML BOTTLE PO SCH ×4 (05:43→23:49)
[2019-03-31] MEDS: METOCLOPRAMIDE HCL 10 MG/10 ML UDC GT SCH ×4 (05:43→23:49)
[2019-03-31 07:50] VITALS: BP 116/69
[2019-03-31] MEDS: HYDROGEN PEROXIDE 480 ML BOTTLE TP SCH ×2 (07:50→21:00)
[2019-03-31] MEDS: HYDROCODONE/APAP 5/325MG 1 EACH TABLET GT SCH ×2 (09:00→21:10)
[2019-03-31] MEDS: ZINC SULFATE 220 MG CAPSULE GT SCH (09:00)
[2019-03-31] MEDS: CRANBERRY D MANNOSE TP SCH (09:00)
[2019-03-31] MEDS: METOPROLOL TARTRATE 25 MG TABLET GT SCH ×2 (09:00→21:09)
[2019-03-31] MEDS: OMEPRAZOLE 20 MG CAPSULE.DR GT SCH ×2 (09:00→21:10)
[2019-03-31] MEDS: CHLORHEXIDINE GLUCONATE 15 ML UDC MM SCH ×2 (09:00→21:10)
[2019-03-31] MEDS: LACTOBACILLUS RHAMNOSUS GG 1 EACH CAP.SPRINK GT SCH ×2 (09:00→17:28)
[2019-03-31] MEDS: PROSOURCE / PROSTAT (PYXIS) 30 ML UDC GT SCH ×3 (09:00→17:28)
[2019-03-31] MEDS: Z GUARD REMEDY 4 OZ OINT TP SCH ×4 (09:00→21:10)
[2019-03-31] MEDS: CLOTRIMAZOLE 1% 15 GM TUBE TP SCH ×2 (09:00→21:10)
[2019-03-31] MEDS: FERROUS SULFATE UDC 300 MG/5 ML UDC GT SCH (09:00)
[2019-03-31] MEDS: LEVETIRACETAM SOL (5 ML) 100 MG/ML UDC GT SCH ×2 (09:00→21:09)
[2019-03-31] MEDS: TOPIRAMATE 25 MG TABLET GT SCH ×2 (09:00→21:10)
[2019-03-31] MEDS: TIZANIDINE HCL 4 MG TABLET GT SCH ×2 (09:00→21:10)
[2019-03-31] MEDS: DOCUSATE SODIUM LIQ 100 MG/10 ML UDC GT SCH ×2 (09:00→17:28)
[2019-03-31 21:09] VITALS: BP 126/77
[2019-03-31] MEDS: SENNOSIDES 8.6 MG TABLET GT SCH (21:10)
[2019-03-31] MEDS: MULTIVITAMINS,THERAGRAN 1 UDTAB TABLET GT SCH (21:10)
[2019-03-31] MEDS: CEFTRIAXONE 1 G in IV D5W 50 ML IV SCH (21:46)
[2019-04-01] MEDS: ALBUTEROL FS 2.5 MG/3 ML VIAL.NEB IH SCH ×4 (00:57→20:08)
[2019-04-01] MEDS: IPRATROPIUM NEB FS 0.5 MG/2.5 ML AMPUL.NEB IH SCH ×4 (00:57→20:08)
[2019-04-01] MEDS: BACLOFEN (10 MG) 10 MG TABLET GT SCH ×4 (05:35→23:19)
[2019-04-01] MEDS: SIMETHICONE SUSP 40 MG/0.6 ML BOTTLE PO SCH ×4 (05:35→23:19)
[2019-04-01] MEDS: METOCLOPRAMIDE HCL 10 MG/10 ML UDC GT SCH ×4 (05:35→23:19)
[2019-04-01] MEDS: ERYTHROMYCIN ETHYLSUCCINATE 200 MG/5 ML SUSPENSION GT SCH ×4 (05:35→21:55)
[2019-04-01 07:48] VITALS: BP 90/47
[2019-04-01] MEDS: HYDROCODONE/APAP 5/325MG 1 EACH TABLET GT SCH ×2 (09:00→21:55)
[2019-04-01] MEDS: ZINC SULFATE 220 MG CAPSULE GT SCH (09:00)
[2019-04-01] MEDS: DOCUSATE SODIUM LIQ 100 MG/10 ML UDC GT SCH ×2 (09:00→17:00)
[2019-04-01] MEDS: LEVETIRACETAM SOL (5 ML) 100 MG/ML UDC GT SCH ×2 (09:00→21:55)
[2019-04-01] MEDS: FERROUS SULFATE UDC 300 MG/5 ML UDC GT SCH (09:00)
[2019-04-01] MEDS: LACTOBACILLUS RHAMNOSUS GG 1 EACH CAP.SPRINK GT SCH ×2 (09:00→17:00)
[2019-04-01] MEDS: HYDROGEN PEROXIDE 480 ML BOTTLE TP SCH ×2 (09:00→21:15)
[2019-04-01] MEDS: TIZANIDINE HCL 4 MG TABLET GT SCH ×2 (09:00→21:55)
[2019-04-01] MEDS: OMEPRAZOLE 20 MG CAPSULE.DR GT SCH ×2 (09:00→21:55)
[2019-04-01] MEDS: CHLORHEXIDINE GLUCONATE 15 ML UDC MM SCH ×2 (09:00→21:55)
[2019-04-01] MEDS: CLOTRIMAZOLE 1% 15 GM TUBE TP SCH ×2 (09:00→21:55)
[2019-04-01] MEDS: TOPIRAMATE 25 MG TABLET GT SCH ×2 (09:00→21:55)
[2019-04-01] MEDS: PROSOURCE / PROSTAT (PYXIS) 30 ML UDC GT SCH ×3 (09:00→17:00)
[2019-04-01] MEDS: CRANBERRY D MANNOSE TP SCH (09:00)
[2019-04-01] MEDS: Z GUARD REMEDY 4 OZ OINT TP SCH ×4 (09:00→21:55)
[2019-04-01] MEDS: METOPROLOL TARTRATE 25 MG TABLET GT SCH ×2 (09:00→21:55)
--- NOTE | 2019-04-01 10:13 | NUR ---
RT PT RECEIVED ON CURRENT VENT SETTINGS. TRACHED WITH PORTEX 8. VENT PLUGGED IN TO RED OUTLET. AMBU BAG AT HEAD OF BED. SPARE TRACH AT BEDSIDE. ALARMS ON AND AUDIBLE. NO RESPIRATORY DISTRESS. HEAD OF BED AT 30 DEGREES. WILL CONTINUE TO MONITOR.
--- NOTE | 2019-04-01 14:45 | NUR ---
Asked DENNIS Avery to review pt's wound culture result. She said she will review it.
[2019-04-01 20:50] VITALS: BP 135/70
[2019-04-01] MEDS: MULTIVITAMINS,THERAGRAN 1 UDTAB TABLET GT SCH (21:55)
[2019-04-01] MEDS: CEFTRIAXONE 1 G in IV D5W 50 ML IV SCH (22:00)
[2019-04-01] MEDS: SENNOSIDES 8.6 MG TABLET GT SCH (22:22)
[2019-04-02] MEDS: ALBUTEROL FS 2.5 MG/3 ML VIAL.NEB IH SCH ×4 (02:26→20:28)
[2019-04-02] MEDS: IPRATROPIUM NEB FS 0.5 MG/2.5 ML AMPUL.NEB IH SCH ×4 (02:26→20:28)
[2019-04-02] MEDS: ERYTHROMYCIN ETHYLSUCCINATE 200 MG/5 ML SUSPENSION GT SCH ×3 (05:00→21:41)
[2019-04-02] MEDS: BACLOFEN (10 MG) 10 MG TABLET GT SCH ×4 (05:43→23:40)
[2019-04-02] MEDS: SIMETHICONE SUSP 40 MG/0.6 ML BOTTLE PO SCH ×4 (05:43→23:40)
[2019-04-02] MEDS: METOCLOPRAMIDE HCL 10 MG/10 ML UDC GT SCH ×4 (05:43→23:40)
[2019-04-02 08:04] VITALS: BP 134/99
[2019-04-02] MEDS: METOPROLOL TARTRATE 25 MG TABLET GT SCH ×2 (09:00→21:42)
[2019-04-02] MEDS: ZINC SULFATE 220 MG CAPSULE GT SCH (09:00)
[2019-04-02] MEDS: PROSOURCE / PROSTAT (PYXIS) 30 ML UDC GT SCH ×3 (09:00→16:57)
[2019-04-02] MEDS: CRANBERRY D MANNOSE TP SCH (09:00)
[2019-04-02] MEDS: DOCUSATE SODIUM LIQ 100 MG/10 ML UDC GT SCH ×2 (09:00→16:57)
[2019-04-02] MEDS: TIZANIDINE HCL 4 MG TABLET GT SCH ×2 (09:00→21:42)
[2019-04-02] MEDS: Z GUARD REMEDY 4 OZ OINT TP SCH ×4 (09:00→21:43)
[2019-04-02] MEDS: OMEPRAZOLE 20 MG CAPSULE.DR GT SCH ×2 (09:00→21:42)
[2019-04-02] MEDS: HYDROCODONE/APAP 5/325MG 1 EACH TABLET GT SCH ×2 (09:00→21:42)
[2019-04-02] MEDS: TOPIRAMATE 25 MG TABLET GT SCH ×2 (09:00→21:42)
[2019-04-02] MEDS: LEVETIRACETAM SOL (5 ML) 100 MG/ML UDC GT SCH ×2 (09:00→21:41)
[2019-04-02] MEDS: LACTOBACILLUS RHAMNOSUS GG 1 EACH CAP.SPRINK GT SCH ×2 (09:00→16:57)
[2019-04-02] MEDS: FERROUS SULFATE UDC 300 MG/5 ML UDC GT SCH (09:00)
[2019-04-02] MEDS: HYDROGEN PEROXIDE 480 ML BOTTLE TP SCH ×2 (09:00→21:43)
[2019-04-02] MEDS: CLOTRIMAZOLE 1% 15 GM TUBE TP SCH ×2 (09:00→21:43)
[2019-04-02] MEDS: CHLORHEXIDINE GLUCONATE 15 ML UDC MM SCH ×2 (09:00→21:43)
--- NOTE | 2019-04-02 14:32 | NUR ---
INTERDISCIPLINARY PLAN OF CARE CONFERENCE took place today. The patients responsible green party/ Vilma Beasley [phone] Warren and Interdisciplinary team discussed the plan of care in detail. The IDT addressed all of the familys questions. Current orders as well as treatments and medications were reviewed. Please see other disciplines IDT notes for further details
--- NOTE | 2019-04-02 14:37 | NUR ---
During IDT, accounts payable supervisor recommended to increase GT feeding rate to 60cc/hr from 55cc/hr. Dr. Warren gave the order and patient's mother and father in agreement. Mrs. Beasley brought up a concern that will be referred to attending physician. She wants to know if there are any changes in the patient's brain activity and patient's mom would like to speak with Dr. Ybarra regarding Botox injection, if there is benefit from using this medication. Will relay family's concern to Dr. Ybarra.
--- NOTE | 2019-04-02 16:50 | NUR ---
Notified DENNIS Avery of final urine and sacral wound culture result. She said that she will review the culture if ATB is indicated. Endorsed.
[2019-04-02] MEDS: JEVITY 1.2 CAL 1,000 ML BOTTLE GT PRN ×2 (17:16→23:40)
[2019-04-02 20:26] VITALS: BP 110/66
[2019-04-02] MEDS: MULTIVITAMINS,THERAGRAN 1 UDTAB TABLET GT SCH (21:42)
[2019-04-02] MEDS: LINEZOLID 600 MG TABLET GT SCH (21:43)
[2019-04-02] MEDS: SENNOSIDES 8.6 MG TABLET GT SCH (21:43)
[2019-04-02] MEDS: CEFTRIAXONE 1 G in IV D5W 50 ML IV SCH (22:00)
--- NOTE | 2019-04-02 22:00 | NUR ---
PT RECEIVE STABLE ON MV, SETTINGS ARE AC 12 500 +5 40% FIO2, TRACH PATENT AND SECURED, SPARE TRACH AND AMBU BAG IS AT BEDSIDE, ALARMS ARE ON AND AUDIBLE, VENT IS PLUG IN RED OUTLET, WILL CONTINUE TO MONITOR Addendum: 04/02/19 at 2200 by AMANDA GALLO RT Amended: Links added.
[2019-04-03] MEDS: ALBUTEROL FS 2.5 MG/3 ML VIAL.NEB IH SCH ×4 (00:43→19:28)
[2019-04-03] MEDS: IPRATROPIUM NEB FS 0.5 MG/2.5 ML AMPUL.NEB IH SCH ×4 (00:43→19:28)
[2019-04-03] MEDS: SIMETHICONE SUSP 40 MG/0.6 ML BOTTLE PO SCH ×4 (05:47→23:38)
[2019-04-03] MEDS: ERYTHROMYCIN ETHYLSUCCINATE 200 MG/5 ML SUSPENSION GT SCH ×3 (05:47→20:46)
[2019-04-03] MEDS: METOCLOPRAMIDE HCL 10 MG/10 ML UDC GT SCH ×4 (05:47→23:38)
[2019-04-03] MEDS: BACLOFEN (10 MG) 10 MG TABLET GT SCH ×4 (05:47→23:38)
[2019-04-03 08:41] VITALS: BP 125/74
[2019-04-03] MEDS: HYDROGEN PEROXIDE 480 ML BOTTLE TP SCH ×2 (09:00→20:47)
[2019-04-03] MEDS: LEVETIRACETAM SOL (5 ML) 100 MG/ML UDC GT SCH ×2 (09:47→20:46)
[2019-04-03] MEDS: LACTOBACILLUS RHAMNOSUS GG 1 EACH CAP.SPRINK GT SCH ×2 (09:47→17:08)
[2019-04-03] MEDS: FERROUS SULFATE UDC 300 MG/5 ML UDC GT SCH (09:47)
[2019-04-03] MEDS: DOCUSATE SODIUM LIQ 100 MG/10 ML UDC GT SCH ×2 (09:47→17:08)
[2019-04-03] MEDS: METOPROLOL TARTRATE 25 MG TABLET GT SCH ×2 (09:48→20:46)
[2019-04-03] MEDS: CHLORHEXIDINE GLUCONATE 15 ML UDC MM SCH ×2 (09:49→20:47)
[2019-04-03] MEDS: ZINC SULFATE 220 MG CAPSULE GT SCH (09:49)
[2019-04-03] MEDS: TIZANIDINE HCL 4 MG TABLET GT SCH ×2 (09:49→20:47)
[2019-04-03] MEDS: CRANBERRY D MANNOSE TP SCH (09:49)
[2019-04-03] MEDS: HYDROCODONE/APAP 5/325MG 1 EACH TABLET GT SCH ×2 (09:49→20:47)
[2019-04-03] MEDS: LINEZOLID 600 MG TABLET GT SCH ×2 (09:49→20:47)
[2019-04-03] MEDS: TOPIRAMATE 25 MG TABLET GT SCH ×2 (09:49→20:47)
[2019-04-03] MEDS: OMEPRAZOLE 20 MG CAPSULE.DR GT SCH ×2 (09:49→20:47)
[2019-04-03] MEDS: PROSOURCE / PROSTAT (PYXIS) 30 ML UDC GT SCH ×3 (09:49→17:08)
[2019-04-03] MEDS: Z GUARD REMEDY 4 OZ OINT TP SCH ×4 (10:49→20:47)
[2019-04-03] MEDS: JEVITY 1.2 CAL 1,000 ML BOTTLE GT PRN (15:23)
[2019-04-03 20:46] VITALS: BP 128/80
[2019-04-03] MEDS: MULTIVITAMINS,THERAGRAN 1 UDTAB TABLET GT SCH (20:47)
--- NOTE | 2019-04-03 20:59 | NUR ---
PT RECEIVE STABLE ON MV, SETTINGS ARE AC 12 500 +5 40% FIO2, TRACH PATENT AND SECURED, SPARE TRACH AND AMBU BAG IS AT BEDSIDE, ALARMS ARE ON AND AUDIBLE, VENT IS PLUG IN RED OUTLET, WILL CONTINUE TO MONITOR Addendum: 04/03/19 at 2100 by AMANDA GALLO RT Amended: Links added.
[2019-04-03] MEDS: SENNOSIDES 8.6 MG TABLET GT SCH (21:16)
[2019-04-03] MEDS: CEFTRIAXONE 1 G in IV D5W 50 ML IV SCH (22:00)
[2019-04-04] MEDS: IPRATROPIUM NEB FS 0.5 MG/2.5 ML AMPUL.NEB IH SCH ×4 (01:28→19:52)
[2019-04-04] MEDS: ALBUTEROL FS 2.5 MG/3 ML VIAL.NEB IH SCH ×4 (01:28→19:52)
[2019-04-04] MEDS: ERYTHROMYCIN ETHYLSUCCINATE 200 MG/5 ML SUSPENSION GT SCH ×3 (05:52→21:00)
[2019-04-04] MEDS: SIMETHICONE SUSP 40 MG/0.6 ML BOTTLE PO SCH ×3 (05:52→18:13)
[2019-04-04] MEDS: BACLOFEN (10 MG) 10 MG TABLET GT SCH ×3 (05:52→18:13)
[2019-04-04] MEDS: METOCLOPRAMIDE HCL 10 MG/10 ML UDC GT SCH ×3 (05:52→18:13)
[2019-04-04] MEDS: JEVITY 1.2 CAL 1,000 ML BOTTLE GT PRN (05:53)
[2019-04-04 07:34] VITALS: BP 119/75
--- NOTE | 2019-04-04 08:28 | NUR ---
RT RECEIVED PATIENT TRACH'D ON [facility] VENT WITH SETTINGS PER MD ORDER. HOT BALLER DONE. VENT PLUGGED INTO RED OUTLET. SPARE TRACH AND AMBU BAG AT HEAD OF BED. ALARMS ON AND FUNCTIONING PROPERLY. BREATHING TX'S GIVEN ORDERED. NO ADVERSE REACTIONS OBSERVED. SUCTIONED AND MONITORED PRN. NO SIGNS OF DISTRESS NOTED. TRACH CARE DONE. Addendum: 04/04/19 at 1759 by SARAI STRICKLAND RT Amended: Links added.
[2019-04-04] MEDS: HYDROGEN PEROXIDE 480 ML BOTTLE TP SCH ×2 (08:36→21:00)
[2019-04-04] MEDS: FERROUS SULFATE UDC 300 MG/5 ML UDC GT SCH (09:00)
[2019-04-04] MEDS: OMEPRAZOLE 20 MG CAPSULE.DR GT SCH ×2 (09:00→21:00)
[2019-04-04] MEDS: CRANBERRY D MANNOSE TP SCH (09:00)
[2019-04-04] MEDS: TIZANIDINE HCL 4 MG TABLET GT SCH ×2 (09:00→21:00)
[2019-04-04] MEDS: ZINC SULFATE 220 MG CAPSULE GT SCH (09:00)
[2019-04-04] MEDS: Z GUARD REMEDY 4 OZ OINT TP SCH ×4 (09:00→21:00)
[2019-04-04] MEDS: HYDROCODONE/APAP 5/325MG 1 EACH TABLET GT SCH ×2 (09:00→21:00)
[2019-04-04] MEDS: CHLORHEXIDINE GLUCONATE 15 ML UDC MM SCH ×2 (09:00→21:00)
[2019-04-04] MEDS: TOPIRAMATE 25 MG TABLET GT SCH ×2 (09:00→21:00)
[2019-04-04] MEDS: LACTOBACILLUS RHAMNOSUS GG 1 EACH CAP.SPRINK GT SCH ×2 (09:00→17:00)
[2019-04-04] MEDS: LINEZOLID 600 MG TABLET GT SCH ×2 (09:00→21:00)
[2019-04-04] MEDS: DOCUSATE SODIUM LIQ 100 MG/10 ML UDC GT SCH ×2 (09:00→17:00)
[2019-04-04] MEDS: METOPROLOL TARTRATE 25 MG TABLET GT SCH ×2 (09:00→21:00)
[2019-04-04] MEDS: PROSOURCE / PROSTAT (PYXIS) 30 ML UDC GT SCH ×3 (09:00→17:00)
[2019-04-04] MEDS: LEVETIRACETAM SOL (5 ML) 100 MG/ML UDC GT SCH ×2 (09:00→21:00)
[2019-04-04 19:54] VITALS: BP 115/72
[2019-04-04] MEDS: MULTIVITAMINS,THERAGRAN 1 UDTAB TABLET GT SCH (21:00)
[2019-04-04] MEDS: CEFTRIAXONE 1 G in IV D5W 50 ML IV SCH (22:00)
--- NOTE | 2019-04-04 22:06 | NUR ---
PT RECEIVE STABLE ON MV, SETTINGS ARE AC 12 500 +5 40% FIO2, TRACH PATENT AND SECURED, SPARE TRACH AND AMBU BAG IS AT BEDSIDE, ALARMS ARE ON AND AUDIBLE, VENT IS PLUG IN RED OUTLET, WILL CONTINUE TO MONITOR Addendum: 04/04/19 at 2206 by AMANDA GALLO RT Amended: Links added.
[2019-04-04] MEDS: SENNOSIDES 8.6 MG TABLET GT SCH (22:08)
[2019-04-05] MEDS: METOCLOPRAMIDE HCL 10 MG/10 ML UDC GT SCH ×5 (00:39→23:58)
[2019-04-05] MEDS: SIMETHICONE SUSP 40 MG/0.6 ML BOTTLE PO SCH ×5 (00:39→23:59)
[2019-04-05] MEDS: BACLOFEN (10 MG) 10 MG TABLET GT SCH ×5 (00:39→23:58)
[2019-04-05] MEDS: ALBUTEROL FS 2.5 MG/3 ML VIAL.NEB IH SCH ×4 (01:23→19:57)
[2019-04-05] MEDS: IPRATROPIUM NEB FS 0.5 MG/2.5 ML AMPUL.NEB IH SCH ×4 (01:23→19:57)
[2019-04-05] MEDS: ERYTHROMYCIN ETHYLSUCCINATE 200 MG/5 ML SUSPENSION GT SCH ×3 (05:00→21:56)
[2019-04-05 07:49] VITALS: BP 142/88
[2019-04-05] MEDS: FERROUS SULFATE UDC 300 MG/5 ML UDC GT SCH (09:00)
[2019-04-05] MEDS: TIZANIDINE HCL 4 MG TABLET GT SCH ×2 (09:00→21:56)
[2019-04-05] MEDS: DOCUSATE SODIUM LIQ 100 MG/10 ML UDC GT SCH ×2 (09:00→17:00)
[2019-04-05] MEDS: HYDROGEN PEROXIDE 480 ML BOTTLE TP SCH ×2 (09:00→21:32)
[2019-04-05] MEDS: ZINC SULFATE 220 MG CAPSULE GT SCH (09:00)
[2019-04-05] MEDS: LINEZOLID 600 MG TABLET GT SCH ×2 (09:00→21:00)
[2019-04-05] MEDS: Z GUARD REMEDY 4 OZ OINT TP SCH ×4 (09:00→21:00)
[2019-04-05] MEDS: CHLORHEXIDINE GLUCONATE 15 ML UDC MM SCH ×2 (09:00→21:00)
[2019-04-05] MEDS: TOPIRAMATE 25 MG TABLET GT SCH ×2 (09:00→21:56)
[2019-04-05] MEDS: LACTOBACILLUS RHAMNOSUS GG 1 EACH CAP.SPRINK GT SCH ×2 (09:00→17:00)
[2019-04-05] MEDS: CRANBERRY D MANNOSE TP SCH (09:00)
[2019-04-05] MEDS: LEVETIRACETAM SOL (5 ML) 100 MG/ML UDC GT SCH ×2 (09:00→21:56)
[2019-04-05] MEDS: HYDROCODONE/APAP 5/325MG 1 EACH TABLET GT SCH ×2 (09:00→21:56)
[2019-04-05] MEDS: OMEPRAZOLE 20 MG CAPSULE.DR GT SCH ×2 (09:00→21:56)
[2019-04-05] MEDS: PROSOURCE / PROSTAT (PYXIS) 30 ML UDC GT SCH ×3 (09:00→17:00)
[2019-04-05] MEDS: METOPROLOL TARTRATE 25 MG TABLET GT SCH ×2 (09:00→21:56)
[2019-04-05] MEDS: JEVITY 1.2 CAL 1,000 ML BOTTLE GT PRN (14:31)
--- NOTE | 2019-04-05 17:00 | NUR ---
Sacral wound negative for ESBL. 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 Received order to DC contact isolation for ESBL sacral wound.
[2019-04-05 20:48] VITALS: BP 112/76
[2019-04-05] MEDS: THERAHONEY GEL 1.5 OZ TUBE TP SCH (21:00)
[2019-04-05] MEDS: MULTIVITAMINS,THERAGRAN 1 UDTAB TABLET GT SCH (21:56)
[2019-04-05] MEDS: SENNOSIDES 8.6 MG TABLET GT SCH (22:03)
[2019-04-05] MEDS ORDERED: LINEZOLID 600 MG TABLET ONE (22:13)
[2019-04-06] MEDS: IPRATROPIUM NEB FS 0.5 MG/2.5 ML AMPUL.NEB IH SCH ×4 (02:04→20:07)
[2019-04-06] MEDS: ALBUTEROL FS 2.5 MG/3 ML VIAL.NEB IH SCH ×4 (02:04→20:07)
[2019-04-06] MEDS: BACLOFEN (10 MG) 10 MG TABLET GT SCH ×3 (05:59→17:57)
[2019-04-06] MEDS: SIMETHICONE SUSP 40 MG/0.6 ML BOTTLE PO SCH ×3 (05:59→17:57)
[2019-04-06] MEDS: METOCLOPRAMIDE HCL 10 MG/10 ML UDC GT SCH ×3 (05:59→17:57)
[2019-04-06] MEDS: ERYTHROMYCIN ETHYLSUCCINATE 200 MG/5 ML SUSPENSION GT SCH ×3 (05:59→21:00)
[2019-04-06 07:59] VITALS: BP 125/70
[2019-04-06 08:00] VITALS: BP 107/67
[2019-04-06] MEDS: HYDROGEN PEROXIDE 480 ML BOTTLE TP SCH ×2 (08:28→21:00)
--- NOTE | 2019-04-06 08:30 | NUR ---
RT RECEIVED PT TRACH'D ON [facility] VENT WITH SETTINGS PER MD ORDER. X RAY INSPECTOR DONE. VENT PLUGGED INTO RED OUTLET. SPARE TRACH AND AMBU BAG AT HEAD OF BED. ALARMS ON AND WORKING PROPERLY. BREATHING TX'S GIVEN ORDERED. NO ADVERSE REACTIONS OBSERVED. SUCTIONED AND MONITORED PRN. NO SIGNS OF DISTRESS NOTED. TRACH CARE DONE. Addendum: 04/06/19 at 1243 by SARAI STRICKLAND RT Amended: Links added.
[2019-04-06] MEDS: CRANBERRY D MANNOSE TP SCH (09:00)
[2019-04-06] MEDS: ZINC SULFATE 220 MG CAPSULE GT SCH (09:00)
[2019-04-06] MEDS: LEVETIRACETAM SOL (5 ML) 100 MG/ML UDC GT SCH ×2 (09:00→21:00)
[2019-04-06] MEDS: METOPROLOL TARTRATE 25 MG TABLET GT SCH ×2 (09:00→21:00)
[2019-04-06] MEDS: Z GUARD REMEDY 4 OZ OINT TP SCH ×4 (09:00→21:00)
[2019-04-06] MEDS: DOCUSATE SODIUM LIQ 100 MG/10 ML UDC GT SCH ×2 (09:00→17:57)
[2019-04-06] MEDS: THERAHONEY GEL 1.5 OZ TUBE TP SCH ×2 (09:00→21:00)
[2019-04-06] MEDS: TOPIRAMATE 25 MG TABLET GT SCH ×2 (09:00→21:00)
[2019-04-06] MEDS: OMEPRAZOLE 20 MG CAPSULE.DR GT SCH ×2 (09:00→21:00)
[2019-04-06] MEDS: TIZANIDINE HCL 4 MG TABLET GT SCH ×2 (09:00→21:00)
[2019-04-06] MEDS: PROSOURCE / PROSTAT (PYXIS) 30 ML UDC GT SCH ×3 (09:00→17:57)
[2019-04-06] MEDS: CHLORHEXIDINE GLUCONATE 15 ML UDC MM SCH ×2 (09:00→21:00)
[2019-04-06] MEDS: FERROUS SULFATE UDC 300 MG/5 ML UDC GT SCH (09:00)
[2019-04-06] MEDS: LINEZOLID 600 MG TABLET GT SCH ×2 (09:00→21:00)
[2019-04-06] MEDS: LACTOBACILLUS RHAMNOSUS GG 1 EACH CAP.SPRINK GT SCH ×2 (09:00→17:57)
[2019-04-06] MEDS: HYDROCODONE/APAP 5/325MG 1 EACH TABLET GT SCH ×2 (10:20→21:00)
--- NOTE | 2019-04-06 11:30 | NUR ---
Seen and examined by JORDAN Burrell given at this time.
--- NOTE | 2019-04-06 12:29 | NUR ---
Late Entry for 03/31/19: ZENIA faxed the required Clinicals to [facility] Department FAX: [phone] for 03/27/19-03/31. ZENIA received completed fax receipt.
--- NOTE | 2019-04-06 12:31 | NUR ---
SW faxed the required daily Clinicals to [facility] Department FAX: [phone] for 04/01/19-04/06/19. SW received completed fax receipt.
[2019-04-06] MEDS: JEVITY 1.2 CAL 1,000 ML BOTTLE GT PRN (13:39)
--- NOTE | 2019-04-06 20:07 | NUR ---
RT PT RECEIVED ON CURRENT SETTINGS. TRACHED WITH PORTEX 8. VENT PLUGGED IN TO RED OUTLET. ALARMS ON AND AUDIBLE. SPARE TRACH AT BEDSIDE. AMBU BAG AT HEAD OF BED. NO RESPIRATORY DISTRESS. WILL CONTINUE TO MONITOR. Addendum: 04/06/19 at 3454 by NEDRA RANDOLPH RT Amended: Links added.
[2019-04-06 20:08] VITALS: BP 111/74
[2019-04-06] MEDS: MULTIVITAMINS,THERAGRAN 1 UDTAB TABLET GT SCH (21:00)
[2019-04-06] MEDS: SENNOSIDES 8.6 MG TABLET GT SCH (22:05)
[2019-04-07] MEDS: IPRATROPIUM NEB FS 0.5 MG/2.5 ML AMPUL.NEB IH SCH ×4 (01:18→19:57)
[2019-04-07] MEDS: ALBUTEROL FS 2.5 MG/3 ML VIAL.NEB IH SCH ×4 (01:18→19:57)
[2019-04-07] MEDS: ERYTHROMYCIN ETHYLSUCCINATE 200 MG/5 ML SUSPENSION GT SCH ×3 (05:00→20:28)
[2019-04-07] MEDS: BACLOFEN (10 MG) 10 MG TABLET GT SCH ×5 (06:26→23:43)
[2019-04-07] MEDS: METOCLOPRAMIDE HCL 10 MG/10 ML UDC GT SCH ×5 (06:27→23:43)
[2019-04-07] MEDS: SIMETHICONE SUSP 40 MG/0.6 ML BOTTLE PO SCH ×5 (06:27→23:43)
[2019-04-07 07:25] VITALS: BP 132/69
[2019-04-07] MEDS: HYDROGEN PEROXIDE 480 ML BOTTLE TP SCH ×2 (08:05→20:06)
[2019-04-07] MEDS: LACTOBACILLUS RHAMNOSUS GG 1 EACH CAP.SPRINK GT SCH ×2 (09:54→16:35)
[2019-04-07] MEDS: DOCUSATE SODIUM LIQ 100 MG/10 ML UDC GT SCH ×2 (09:54→16:35)
[2019-04-07] MEDS: FERROUS SULFATE UDC 300 MG/5 ML UDC GT SCH (09:54)
[2019-04-07] MEDS: LEVETIRACETAM SOL (5 ML) 100 MG/ML UDC GT SCH ×2 (09:55→20:28)
[2019-04-07] MEDS: TOPIRAMATE 25 MG TABLET GT SCH ×2 (09:57→20:29)
[2019-04-07] MEDS: CHLORHEXIDINE GLUCONATE 15 ML UDC MM SCH ×2 (09:57→20:29)
[2019-04-07] MEDS: CRANBERRY D MANNOSE TP SCH (09:57)
[2019-04-07] MEDS: TIZANIDINE HCL 4 MG TABLET GT SCH ×2 (09:57→20:29)
[2019-04-07] MEDS: METOPROLOL TARTRATE 25 MG TABLET GT SCH ×2 (09:57→20:29)
[2019-04-07] MEDS: OMEPRAZOLE 20 MG CAPSULE.DR GT SCH ×2 (09:57→20:29)
[2019-04-07] MEDS: HYDROCODONE/APAP 5/325MG 1 EACH TABLET GT SCH ×2 (09:57→20:29)
[2019-04-07] MEDS: ZINC SULFATE 220 MG CAPSULE GT SCH (09:57)
[2019-04-07] MEDS: LINEZOLID 600 MG TABLET GT SCH ×2 (09:57→20:29)
[2019-04-07] MEDS: PROSOURCE / PROSTAT (PYXIS) 30 ML UDC GT SCH ×3 (09:57→16:35)
[2019-04-07] MEDS: THERAHONEY GEL 1.5 OZ TUBE TP SCH ×2 (10:57→20:29)
[2019-04-07] MEDS: Z GUARD REMEDY 4 OZ OINT TP SCH ×4 (11:00→20:29)
--- NOTE | 2019-04-07 14:49 | NUR ---
RT NOTES RECEIVED PATIENT ON VENT WITH ORDERED SETTINGS. TRACH TUBE IN PLACE, PATENT, AND SECURED WITH TRACH TIE. ALARMS ON AND AUDIBLE. VENT PLUGGED IN TO THE RED OUTLET. AMBU BAG AND BACK UP TRACH BY THE BEDSIDE. NO DISTRESS AT THIS TIME. Addendum: 04/07/19 at 1451 by KATELYN HUYNH RT Amended: Links added.
--- NOTE | 2019-04-07 19:57 | NUR ---
RT pt received on current settings. trached with portex 8. vent plugged in to red outlet. alarms on and audible. ambu bag at head of bed. spare trach at bedside. no respiratory distress. will continue to monitor. Addendum: 04/08/19 at 0236 by NEDRA RANDOLPH RT Amended: Links added.
[2019-04-07 20:20] VITALS: BP 110/62
[2019-04-07] MEDS: MULTIVITAMINS,THERAGRAN 1 UDTAB TABLET GT SCH (20:29)
[2019-04-07] MEDS: JEVITY 1.2 CAL 1,000 ML BOTTLE GT PRN (20:30)
[2019-04-07] MEDS: SENNOSIDES 8.6 MG TABLET GT SCH (22:16)
[2019-04-08] MEDS: ALBUTEROL FS 2.5 MG/3 ML VIAL.NEB IH SCH ×4 (01:28→19:52)
[2019-04-08] MEDS: IPRATROPIUM NEB FS 0.5 MG/2.5 ML AMPUL.NEB IH SCH ×4 (01:28→19:52)
[2019-04-08] MEDS: BACLOFEN (10 MG) 10 MG TABLET GT SCH ×4 (05:04→23:20)
[2019-04-08] MEDS: METOCLOPRAMIDE HCL 10 MG/10 ML UDC GT SCH ×4 (05:04→23:20)
[2019-04-08] MEDS: ERYTHROMYCIN ETHYLSUCCINATE 200 MG/5 ML SUSPENSION GT SCH ×3 (05:04→20:43)
[2019-04-08] MEDS: SIMETHICONE SUSP 40 MG/0.6 ML BOTTLE PO SCH ×4 (05:05→23:20)
[2019-04-08 07:38] VITALS: BP 135/88
[2019-04-08] MEDS: HYDROGEN PEROXIDE 480 ML BOTTLE TP SCH ×2 (08:20→20:44)
[2019-04-08] MEDS: PROSOURCE / PROSTAT (PYXIS) 30 ML UDC GT SCH ×3 (09:00→17:48)
[2019-04-08] MEDS: DOCUSATE SODIUM LIQ 100 MG/10 ML UDC GT SCH ×2 (09:00→17:48)
[2019-04-08] MEDS: OMEPRAZOLE 20 MG CAPSULE.DR GT SCH ×2 (09:00→20:43)
[2019-04-08] MEDS: FERROUS SULFATE UDC 300 MG/5 ML UDC GT SCH (09:00)
[2019-04-08] MEDS: TOPIRAMATE 25 MG TABLET GT SCH ×2 (09:00→20:43)
[2019-04-08] MEDS: HYDROCODONE/APAP 5/325MG 1 EACH TABLET GT SCH ×2 (09:00→20:43)
[2019-04-08] MEDS: TIZANIDINE HCL 4 MG TABLET GT SCH ×2 (09:00→20:43)
[2019-04-08] MEDS: Z GUARD REMEDY 4 OZ OINT TP SCH ×4 (09:00→20:44)
[2019-04-08] MEDS: CRANBERRY D MANNOSE TP SCH (09:00)
[2019-04-08] MEDS: ZINC SULFATE 220 MG CAPSULE GT SCH (09:00)
[2019-04-08] MEDS: LACTOBACILLUS RHAMNOSUS GG 1 EACH CAP.SPRINK GT SCH ×2 (09:00→17:48)
[2019-04-08] MEDS: LEVETIRACETAM SOL (5 ML) 100 MG/ML UDC GT SCH ×2 (09:00→20:43)
[2019-04-08] MEDS: THERAHONEY GEL 1.5 OZ TUBE TP SCH ×2 (09:00→20:44)
[2019-04-08] MEDS: METOPROLOL TARTRATE 25 MG TABLET GT SCH ×2 (09:00→20:43)
[2019-04-08] MEDS: LINEZOLID 600 MG TABLET GT SCH ×2 (09:00→20:43)
[2019-04-08] MEDS: CHLORHEXIDINE GLUCONATE 15 ML UDC MM SCH ×2 (09:00→20:43)
--- NOTE | 2019-04-08 15:40 | NUR ---
Seen by DUAL HOSE CEMENTER Asia Jernigan. Pt noted with right hand rash. Received order to apply Lidex cream. Notified pt's mother.
[2019-04-08] MEDS: JEVITY 1.2 CAL 1,000 ML BOTTLE GT PRN (17:49)
[2019-04-08] MEDS: BISACODYL SUPP (10 MG) 10 MG/SUPP.RECT SUPP.RECT RC PRN (19:15)
[2019-04-08] MEDS: MULTIVITAMINS,THERAGRAN 1 UDTAB TABLET GT SCH (20:43)
[2019-04-08] MEDS: FLUOCINONIDE 0.05% CREAM 15 GM TUBE TP SCH (21:00)
[2019-04-08] MEDS: SENNOSIDES 8.6 MG TABLET GT SCH (21:14)
[2019-04-08 21:48] VITALS: BP 128/87
[2019-04-09] MEDS: IPRATROPIUM NEB FS 0.5 MG/2.5 ML AMPUL.NEB IH SCH ×4 (01:29→19:54)
[2019-04-09] MEDS: ALBUTEROL FS 2.5 MG/3 ML VIAL.NEB IH SCH ×4 (01:30→19:54)
[2019-04-09] MEDS: BACLOFEN (10 MG) 10 MG TABLET GT SCH ×4 (05:42→23:17)
[2019-04-09] MEDS: ERYTHROMYCIN ETHYLSUCCINATE 200 MG/5 ML SUSPENSION GT SCH ×3 (05:42→20:31)
[2019-04-09] MEDS: METOCLOPRAMIDE HCL 10 MG/10 ML UDC GT SCH ×4 (05:42→23:17)
[2019-04-09] MEDS: SIMETHICONE SUSP 40 MG/0.6 ML BOTTLE PO SCH ×4 (05:42→23:17)
[2019-04-09 08:01] VITALS: BP 95/49
--- NOTE | 2019-04-09 08:51 | NUR ---
SW faxed the required daily Clinicals to [facility] Department FAX: [phone] for 04/07/19-04/09/19. SW received completed fax receipt.
[2019-04-09] MEDS: FLUOCINONIDE 0.05% CREAM 15 GM TUBE TP SCH ×2 (09:00→20:33)
[2019-04-09] MEDS: METOPROLOL TARTRATE 25 MG TABLET GT SCH ×2 (09:00→20:32)
[2019-04-09] MEDS: HYDROGEN PEROXIDE 480 ML BOTTLE TP SCH ×2 (09:00→20:33)
[2019-04-09] MEDS: LACTOBACILLUS RHAMNOSUS GG 1 EACH CAP.SPRINK GT SCH ×2 (09:58→17:31)
[2019-04-09] MEDS: DOCUSATE SODIUM LIQ 100 MG/10 ML UDC GT SCH ×2 (09:58→17:31)
[2019-04-09] MEDS: LEVETIRACETAM SOL (5 ML) 100 MG/ML UDC GT SCH ×2 (09:58→20:31)
[2019-04-09] MEDS: FERROUS SULFATE UDC 300 MG/5 ML UDC GT SCH (09:58)
[2019-04-09] MEDS: TOPIRAMATE 25 MG TABLET GT SCH ×2 (09:59→20:33)
[2019-04-09] MEDS: PROSOURCE / PROSTAT (PYXIS) 30 ML UDC GT SCH ×3 (09:59→17:31)
[2019-04-09] MEDS: ZINC SULFATE 220 MG CAPSULE GT SCH (09:59)
[2019-04-09] MEDS: CHLORHEXIDINE GLUCONATE 15 ML UDC MM SCH ×2 (09:59→20:33)
[2019-04-09] MEDS: HYDROCODONE/APAP 5/325MG 1 EACH TABLET GT SCH ×2 (09:59→20:33)
[2019-04-09] MEDS: LINEZOLID 600 MG TABLET GT SCH ×2 (09:59→20:33)
[2019-04-09] MEDS: CRANBERRY D MANNOSE TP SCH (09:59)
[2019-04-09] MEDS: OMEPRAZOLE 20 MG CAPSULE.DR GT SCH ×2 (09:59→20:33)
[2019-04-09] MEDS: TIZANIDINE HCL 4 MG TABLET GT SCH ×2 (09:59→20:33)
[2019-04-09] MEDS: Z GUARD REMEDY 4 OZ OINT TP SCH ×4 (09:59→20:33)
[2019-04-09] MEDS: THERAHONEY GEL 1.5 OZ TUBE TP SCH ×2 (10:00→20:34)
[2019-04-09] MEDS: JEVITY 1.2 CAL 1,000 ML BOTTLE GT PRN (13:29)
[2019-04-09] MEDS: MULTIVITAMINS,THERAGRAN 1 UDTAB TABLET GT SCH (20:33)
[2019-04-09] MEDS: SENNOSIDES 8.6 MG TABLET GT SCH (21:06)
--- NOTE | 2019-04-09 22:27 | NUR ---
PT RECEIVE STABLE ON MV, SETTINGS ARE AC 12 500 +5 40% FIO2, ALARMS ARE ON AND AUDIBLE, SPARE TRACH AND AMBU BAG IS AT BEDSIDE, TRACH PATENT AND SECURED, VENT IS PLUG IS RED OUTLET, WILL CONTINUE TO MONITOR Addendum: 04/09/19 at 2228 by AMANDA GALLO RT Amended: Links added.
[2019-04-10] MEDS: ALBUTEROL FS 2.5 MG/3 ML VIAL.NEB IH SCH ×4 (02:22→20:20)
[2019-04-10] MEDS: IPRATROPIUM NEB FS 0.5 MG/2.5 ML AMPUL.NEB IH SCH ×4 (02:22→20:20)
--- NOTE | 2019-04-10 04:53 | NUR ---
Pt noted with some facial grimacing- no s/sx of acute distress. Noted pt's enamorado cath with cloudy urine- checked patency- attempted to flush enamorado- but unable -noted w/ resistance, also enamorado noted by passing/leaking - diaper noted soiled w/ urine- good venita care provided , repositioned pt. hooker operator notified- will inform am RN to contact .
[2019-04-10] MEDS: SIMETHICONE SUSP 40 MG/0.6 ML BOTTLE PO SCH ×4 (05:36→23:15)
[2019-04-10] MEDS: METOCLOPRAMIDE HCL 10 MG/10 ML UDC GT SCH ×4 (05:36→23:14)
[2019-04-10] MEDS: BACLOFEN (10 MG) 10 MG TABLET GT SCH ×4 (05:36→23:14)
[2019-04-10] MEDS: ERYTHROMYCIN ETHYLSUCCINATE 200 MG/5 ML SUSPENSION GT SCH ×3 (05:36→20:41)
[2019-04-10 08:13] VITALS: BP 108/67
[2019-04-10] MEDS: Z GUARD REMEDY 4 OZ OINT TP SCH ×4 (09:00→20:42)
[2019-04-10] MEDS: FLUOCINONIDE 0.05% CREAM 15 GM TUBE TP SCH ×2 (09:00→20:41)
[2019-04-10] MEDS: THERAHONEY GEL 1.5 OZ TUBE TP SCH ×2 (09:00→20:42)
[2019-04-10] MEDS: HYDROGEN PEROXIDE 480 ML BOTTLE TP SCH ×2 (09:02→20:20)
[2019-04-10] MEDS: DOCUSATE SODIUM LIQ 100 MG/10 ML UDC GT SCH ×2 (09:07→17:00)
[2019-04-10] MEDS: LACTOBACILLUS RHAMNOSUS GG 1 EACH CAP.SPRINK GT SCH ×2 (09:07→17:00)
[2019-04-10] MEDS: FERROUS SULFATE UDC 300 MG/5 ML UDC GT SCH (09:08)
[2019-04-10] MEDS: LEVETIRACETAM SOL (5 ML) 100 MG/ML UDC GT SCH ×2 (09:09→20:41)
[2019-04-10] MEDS: METOPROLOL TARTRATE 25 MG TABLET GT SCH ×2 (09:09→20:41)
[2019-04-10] MEDS: OMEPRAZOLE 20 MG CAPSULE.DR GT SCH ×2 (09:10→20:41)
[2019-04-10] MEDS: HYDROCODONE/APAP 5/325MG 1 EACH TABLET GT SCH ×2 (09:10→20:41)
[2019-04-10] MEDS: PROSOURCE / PROSTAT (PYXIS) 30 ML UDC GT SCH ×3 (09:11→17:00)
[2019-04-10] MEDS: TOPIRAMATE 25 MG TABLET GT SCH ×2 (09:11→20:41)
[2019-04-10] MEDS: TIZANIDINE HCL 4 MG TABLET GT SCH ×2 (09:11→20:41)
[2019-04-10] MEDS: ZINC SULFATE 220 MG CAPSULE GT SCH (09:12)
[2019-04-10] MEDS: LINEZOLID 600 MG TABLET GT SCH ×2 (09:12→20:41)
[2019-04-10] MEDS: CRANBERRY D MANNOSE TP SCH (09:14)
[2019-04-10] MEDS: CHLORHEXIDINE GLUCONATE 15 ML UDC MM SCH ×2 (09:14→20:41)
[2019-04-10] MEDS: JEVITY 1.2 CAL 1,000 ML BOTTLE GT PRN (14:00)
--- NOTE | 2019-04-10 17:39 | NUR ---
Observed enamorado catheter by passing, leaking urine, diaper soiled large amount, enamorado catheter also draining approx 400ml, no facial grimacing, no sob, no acute distress, will continue to monitor output.
[2019-04-10 20:00] VITALS: BP 116/75
[2019-04-10] MEDS: MULTIVITAMINS,THERAGRAN 1 UDTAB TABLET GT SCH (20:41)
[2019-04-10] MEDS: SENNOSIDES 8.6 MG TABLET GT SCH (21:12)
[2019-04-11] MEDS: ALBUTEROL FS 2.5 MG/3 ML VIAL.NEB IH SCH ×4 (01:00→19:31)
[2019-04-11] MEDS: IPRATROPIUM NEB FS 0.5 MG/2.5 ML AMPUL.NEB IH SCH ×4 (01:00→19:31)
[2019-04-11] MEDS: METOCLOPRAMIDE HCL 10 MG/10 ML UDC GT SCH ×4 (05:38→23:27)
[2019-04-11] MEDS: BACLOFEN (10 MG) 10 MG TABLET GT SCH ×4 (05:38→23:27)
[2019-04-11] MEDS: SIMETHICONE SUSP 40 MG/0.6 ML BOTTLE PO SCH ×4 (05:38→23:27)
[2019-04-11] MEDS: ERYTHROMYCIN ETHYLSUCCINATE 200 MG/5 ML SUSPENSION GT SCH ×3 (05:38→21:13)
--- NOTE | 2019-04-11 06:23 | NUR ---
Pt noted with no urine output to enamorado cath - 3 x voided thru diaper, no facial grimacing- pt kept clean and dry, unable to flush enamorado catheter. Will endorse to am nurse to inform .
[2019-04-11 08:07] VITALS: BP 122/76
[2019-04-11] MEDS: Z GUARD REMEDY 4 OZ OINT TP SCH ×3 (09:00→21:44)
[2019-04-11] MEDS: LINEZOLID 600 MG TABLET GT SCH ×2 (09:00→21:18)
[2019-04-11] MEDS: FLUOCINONIDE 0.05% CREAM 15 GM TUBE TP SCH ×2 (09:00→21:44)
[2019-04-11] MEDS: ZINC SULFATE 220 MG CAPSULE GT SCH (09:00)
[2019-04-11] MEDS: TOPIRAMATE 25 MG TABLET GT SCH ×2 (09:00→21:14)
[2019-04-11] MEDS: THERAHONEY GEL 1.5 OZ TUBE TP SCH ×2 (09:00→21:44)
[2019-04-11] MEDS: TIZANIDINE HCL 4 MG TABLET GT SCH ×2 (09:00→21:14)
[2019-04-11] MEDS: CHLORHEXIDINE GLUCONATE 15 ML UDC MM SCH ×2 (09:00→21:16)
[2019-04-11] MEDS: PROSOURCE / PROSTAT (PYXIS) 30 ML UDC GT SCH ×3 (09:00→16:53)
[2019-04-11] MEDS: CRANBERRY D MANNOSE TP SCH (09:00)
[2019-04-11] MEDS: HYDROGEN PEROXIDE 480 ML BOTTLE TP SCH ×2 (09:22→21:06)
[2019-04-11] MEDS: LACTOBACILLUS RHAMNOSUS GG 1 EACH CAP.SPRINK GT SCH ×2 (09:57→17:05)
[2019-04-11] MEDS: DOCUSATE SODIUM LIQ 100 MG/10 ML UDC GT SCH ×2 (09:57→16:53)
[2019-04-11] MEDS: FERROUS SULFATE UDC 300 MG/5 ML UDC GT SCH (09:57)
[2019-04-11] MEDS: LEVETIRACETAM SOL (5 ML) 100 MG/ML UDC GT SCH ×2 (09:58→21:13)
[2019-04-11] MEDS: HYDROCODONE/APAP 5/325MG 1 EACH TABLET GT SCH ×2 (09:59→21:14)
[2019-04-11] MEDS: METOPROLOL TARTRATE 25 MG TABLET GT SCH ×2 (09:59→21:13)
[2019-04-11] MEDS: OMEPRAZOLE 20 MG CAPSULE.DR GT SCH ×2 (09:59→21:14)
[2019-04-11] MEDS: JEVITY 1.2 CAL 1,000 ML BOTTLE GT PRN (10:45)
--- NOTE | 2019-04-11 18:50 | NUR ---
Resident enamorado catheter was clogged and bypassing urine. Noted with 4 fully soaked diaper the whole shift. No s/s of discomfort. No facial grimacing, no hematuria. Afebrile. Pls. inform Dr. Dawn in Am. Will continue to monitor.
[2019-04-11 19:53] VITALS: BP 104/68
[2019-04-11] MEDS: MULTIVITAMINS,THERAGRAN 1 UDTAB TABLET GT SCH (21:14)
[2019-04-11] MEDS: SENNOSIDES 8.6 MG TABLET GT SCH (21:17)
[2019-04-12] MEDS: ALBUTEROL FS 2.5 MG/3 ML VIAL.NEB IH SCH ×4 (01:23→20:20)
[2019-04-12] MEDS: IPRATROPIUM NEB FS 0.5 MG/2.5 ML AMPUL.NEB IH SCH ×4 (01:23→20:20)
[2019-04-12] MEDS: SIMETHICONE SUSP 40 MG/0.6 ML BOTTLE PO SCH ×4 (05:29→23:19)
[2019-04-12] MEDS: METOCLOPRAMIDE HCL 10 MG/10 ML UDC GT SCH ×4 (05:29→23:19)
[2019-04-12] MEDS: ERYTHROMYCIN ETHYLSUCCINATE 200 MG/5 ML SUSPENSION GT SCH ×3 (05:29→21:34)
[2019-04-12] MEDS: BACLOFEN (10 MG) 10 MG TABLET GT SCH ×4 (05:29→23:19)
[2019-04-12] MEDS: HYDROGEN PEROXIDE 480 ML BOTTLE TP SCH ×2 (08:13→20:20)
[2019-04-12] MEDS: FERROUS SULFATE UDC 300 MG/5 ML UDC GT SCH (09:42)
[2019-04-12] MEDS: DOCUSATE SODIUM LIQ 100 MG/10 ML UDC GT SCH ×2 (09:42→17:11)
[2019-04-12] MEDS: LACTOBACILLUS RHAMNOSUS GG 1 EACH CAP.SPRINK GT SCH ×2 (09:42→17:11)
[2019-04-12] MEDS: LEVETIRACETAM SOL (5 ML) 100 MG/ML UDC GT SCH ×2 (09:42→21:34)
[2019-04-12] MEDS: OMEPRAZOLE 20 MG CAPSULE.DR GT SCH ×2 (09:43→21:34)
[2019-04-12] MEDS: FLUOCINONIDE 0.05% CREAM 15 GM TUBE TP SCH ×2 (09:43→21:38)
[2019-04-12] MEDS: ZINC SULFATE 220 MG CAPSULE GT SCH (09:43)
[2019-04-12] MEDS: HYDROCODONE/APAP 5/325MG 1 EACH TABLET GT SCH ×2 (09:43→21:34)
[2019-04-12] MEDS: TIZANIDINE HCL 4 MG TABLET GT SCH ×2 (09:43→21:34)
[2019-04-12] MEDS: Z GUARD REMEDY 4 OZ OINT TP SCH ×2 (09:43→21:38)
[2019-04-12] MEDS: CHLORHEXIDINE GLUCONATE 15 ML UDC MM SCH ×2 (09:43→21:38)
[2019-04-12] MEDS: LINEZOLID 600 MG TABLET GT SCH ×2 (09:43→21:38)
[2019-04-12] MEDS: PROSOURCE / PROSTAT (PYXIS) 30 ML UDC GT SCH ×3 (09:43→17:11)
[2019-04-12] MEDS: METOPROLOL TARTRATE 25 MG TABLET GT SCH ×2 (09:43→21:34)
[2019-04-12] MEDS: CRANBERRY D MANNOSE TP SCH (09:43)
[2019-04-12] MEDS: TOPIRAMATE 25 MG TABLET GT SCH ×2 (09:43→21:34)
[2019-04-12] MEDS: THERAHONEY GEL 1.5 OZ TUBE TP SCH ×2 (09:43→21:38)
[2019-04-12 10:23] VITALS: BP 139/71
--- NOTE | 2019-04-12 15:10 | NUR ---
SW faxed the required daily Clinicals to [facility] Department FAX: [phone] for 04/10/19-04/12/19. SW received completed fax receipt.
--- NOTE | 2019-04-12 17:57 | NUR ---
PATIENT'S F/C BYPASSING URINE, WET DIAPER NOTED. NEW F/C 16FR INSERTED WITH 10ML BALLOON, PROCEDURE TOLERATED WELL.
[2019-04-12 20:12] VITALS: BP 103/58
--- NOTE | 2019-04-12 21:33 | NUR ---
PT RECEIVE STABLE ON MV, SETTINGS ARE AC 12 500 +5 @ 40% FIO2, TRACH PATENT AND SECURED, ALARMS ARE ON AND AUDIBLE, SPARE TRACH AND AMBU BAG IS AT BEDSIDE, VENT IS PLUG IN TO RED OUTLET, WILL CONTINUE TO MONITOR Addendum: 04/12/19 at 2133 by AMANDA GALLO RT Amended: Links added.
[2019-04-12] MEDS: MULTIVITAMINS,THERAGRAN 1 UDTAB TABLET GT SCH (21:34)
[2019-04-12] MEDS: SENNOSIDES 8.6 MG TABLET GT SCH (21:38)
[2019-04-13] MEDS: IPRATROPIUM NEB FS 0.5 MG/2.5 ML AMPUL.NEB IH SCH ×4 (01:33→19:32)
[2019-04-13] MEDS: ALBUTEROL FS 2.5 MG/3 ML VIAL.NEB IH SCH ×4 (01:33→19:32)
[2019-04-13] MEDS: METOCLOPRAMIDE HCL 10 MG/10 ML UDC GT SCH ×3 (05:18→17:43)
[2019-04-13] MEDS: ERYTHROMYCIN ETHYLSUCCINATE 200 MG/5 ML SUSPENSION GT SCH ×3 (05:18→21:58)
[2019-04-13] MEDS: BACLOFEN (10 MG) 10 MG TABLET GT SCH ×3 (05:18→17:40)
[2019-04-13] MEDS: SIMETHICONE SUSP 40 MG/0.6 ML BOTTLE PO SCH ×3 (05:18→17:43)
[2019-04-13 07:58] VITALS: BP 147/89
[2019-04-13] MEDS: LACTOBACILLUS RHAMNOSUS GG 1 EACH CAP.SPRINK GT SCH ×2 (09:00→17:39)
[2019-04-13] MEDS: FERROUS SULFATE UDC 300 MG/5 ML UDC GT SCH (09:00)
[2019-04-13] MEDS: OMEPRAZOLE 20 MG CAPSULE.DR GT SCH ×2 (09:00→21:59)
[2019-04-13] MEDS: CRANBERRY D MANNOSE TP SCH (09:00)
[2019-04-13] MEDS: PROSOURCE / PROSTAT (PYXIS) 30 ML UDC GT SCH ×3 (09:00→17:39)
[2019-04-13] MEDS: CHLORHEXIDINE GLUCONATE 15 ML UDC MM SCH ×2 (09:00→21:00)
[2019-04-13] MEDS: Z GUARD REMEDY 4 OZ OINT TP SCH ×2 (09:00→21:00)
[2019-04-13] MEDS: METOPROLOL TARTRATE 25 MG TABLET GT SCH ×2 (09:00→21:59)
[2019-04-13] MEDS: HYDROGEN PEROXIDE 480 ML BOTTLE TP SCH ×2 (09:00→21:58)
[2019-04-13] MEDS: THERAHONEY GEL 1.5 OZ TUBE TP SCH ×2 (09:00→21:00)
[2019-04-13] MEDS: ZINC SULFATE 220 MG CAPSULE GT SCH (09:00)
[2019-04-13] MEDS: LEVETIRACETAM SOL (5 ML) 100 MG/ML UDC GT SCH ×2 (09:00→21:58)
[2019-04-13] MEDS: TOPIRAMATE 25 MG TABLET GT SCH ×2 (09:00→21:00)
[2019-04-13] MEDS: DOCUSATE SODIUM LIQ 100 MG/10 ML UDC GT SCH ×2 (09:00→17:39)
[2019-04-13] MEDS: TIZANIDINE HCL 4 MG TABLET GT SCH ×2 (09:00→21:00)
[2019-04-13] MEDS: FLUOCINONIDE 0.05% CREAM 15 GM TUBE TP SCH ×2 (09:00→21:00)
[2019-04-13] MEDS: HYDROCODONE/APAP 5/325MG 1 EACH TABLET GT SCH ×2 (09:00→21:59)
--- NOTE | 2019-04-13 10:14 | NUR ---
SW received a call from [employer] Sales Representative, Janae [phone] EXT#[phone] who stated that clinicals should be sent once a week to ATTN: BASIL[facility] [phone] Reference #[id number]. Noted.
--- NOTE | 2019-04-13 15:05 | NUR ---
ZENIA contacted the pt.s responsible republican, Vilma Santos [phone] to schedule filling out new intake paperwork as the pt.s have received new accounts. Vilma stated :that her , Larry might be more readily available. ZENIA will follow up.
[2019-04-13] MEDS: JEVITY 1.2 CAL 1,000 ML BOTTLE GT PRN (17:49)
[2019-04-13 20:30] VITALS: BP 103/65
[2019-04-13] MEDS: MULTIVITAMINS,THERAGRAN 1 UDTAB TABLET GT SCH (22:00)
[2019-04-13] MEDS: SENNOSIDES 8.6 MG TABLET GT SCH (22:02)
[2019-04-14] MEDS: SIMETHICONE SUSP 40 MG/0.6 ML BOTTLE PO SCH ×4 (00:54→18:01)
[2019-04-14] MEDS: BACLOFEN (10 MG) 10 MG TABLET GT SCH ×4 (00:54→18:01)
[2019-04-14] MEDS: METOCLOPRAMIDE HCL 10 MG/10 ML UDC GT SCH ×4 (00:54→18:01)
[2019-04-14] MEDS: IPRATROPIUM NEB FS 0.5 MG/2.5 ML AMPUL.NEB IH SCH ×4 (01:22→19:25)
[2019-04-14] MEDS: ALBUTEROL FS 2.5 MG/3 ML VIAL.NEB IH SCH ×4 (01:22→19:25)
[2019-04-14] MEDS: ERYTHROMYCIN ETHYLSUCCINATE 200 MG/5 ML SUSPENSION GT SCH ×3 (05:12→20:51)
[2019-04-14 08:01] VITALS: BP 146/74
[2019-04-14] MEDS: LACTOBACILLUS RHAMNOSUS GG 1 EACH CAP.SPRINK GT SCH ×2 (08:58→16:56)
[2019-04-14] MEDS: DOCUSATE SODIUM LIQ 100 MG/10 ML UDC GT SCH ×2 (08:58→16:56)
[2019-04-14] MEDS: LEVETIRACETAM SOL (5 ML) 100 MG/ML UDC GT SCH ×2 (08:59→20:54)
[2019-04-14] MEDS: FERROUS SULFATE UDC 300 MG/5 ML UDC GT SCH (08:59)
[2019-04-14] MEDS: THERAHONEY GEL 1.5 OZ TUBE TP SCH ×2 (09:00→21:03)
[2019-04-14] MEDS: METOPROLOL TARTRATE 25 MG TABLET GT SCH ×2 (09:00→20:55)
[2019-04-14] MEDS: HYDROGEN PEROXIDE 480 ML BOTTLE TP SCH ×2 (09:00→20:01)
[2019-04-14] MEDS: FLUOCINONIDE 0.05% CREAM 15 GM TUBE TP SCH ×2 (09:00→21:03)
[2019-04-14] MEDS: HYDROCODONE/APAP 5/325MG 1 EACH TABLET GT SCH ×2 (09:01→20:54)
[2019-04-14] MEDS: PROSOURCE / PROSTAT (PYXIS) 30 ML UDC GT SCH ×3 (09:01→16:56)
[2019-04-14] MEDS: OMEPRAZOLE 20 MG CAPSULE.DR GT SCH ×2 (09:01→20:51)
[2019-04-14] MEDS: ZINC SULFATE 220 MG CAPSULE GT SCH (09:02)
[2019-04-14] MEDS: TOPIRAMATE 25 MG TABLET GT SCH ×2 (09:02→20:57)
[2019-04-14] MEDS: TIZANIDINE HCL 4 MG TABLET GT SCH ×2 (09:02→20:57)
[2019-04-14] MEDS: CRANBERRY D MANNOSE TP SCH (09:03)
[2019-04-14] MEDS: CHLORHEXIDINE GLUCONATE 15 ML UDC MM SCH ×2 (09:03→20:54)
[2019-04-14] MEDS: Z GUARD REMEDY 4 OZ OINT TP SCH ×2 (09:10→21:03)
[2019-04-14] MEDS: JEVITY 1.2 CAL 1,000 ML BOTTLE GT PRN (18:01)
[2019-04-14 19:47] VITALS: BP 122/76
--- NOTE | 2019-04-14 20:30 | NUR ---
RT NOTE PT RECEIVED TRACHED ON MECHANICAL VENTILATION. AMBU BAG/BACK UP TRACH @ BEDSIDE. TX GIVEN, NO ADVERSE REACTIONS NOTED. SX DONE, TRACH SECURED AND PATENT. ALARMS ON AND AUDIBLE. VENT PLUGGED TO RED OUTLET. NO SOB NOTED. WILL MONITOR T/O SHIFT. Addendum: 04/14/19 at 2032 by JAIRO KOO RT Amended: Links added.
[2019-04-14] MEDS: MULTIVITAMINS,THERAGRAN 1 UDTAB TABLET GT SCH (20:57)
[2019-04-14] MEDS: SENNOSIDES 8.6 MG TABLET GT SCH (21:14)
[2019-04-15] MEDS: BACLOFEN (10 MG) 10 MG TABLET GT SCH ×2 (00:22→05:10)
[2019-04-15] MEDS: METOCLOPRAMIDE HCL 10 MG/10 ML UDC GT SCH ×2 (00:22→05:10)
[2019-04-15] MEDS: SIMETHICONE SUSP 40 MG/0.6 ML BOTTLE PO SCH ×2 (00:22→05:10)
[2019-04-15] MEDS: IPRATROPIUM NEB FS 0.5 MG/2.5 ML AMPUL.NEB IH SCH ×2 (01:57→07:43)
[2019-04-15] MEDS: ALBUTEROL FS 2.5 MG/3 ML VIAL.NEB IH SCH ×2 (01:57→07:43)
[2019-04-15] MEDS: ERYTHROMYCIN ETHYLSUCCINATE 200 MG/5 ML SUSPENSION GT SCH (05:09)
[2019-04-15 07:49] VITALS: BP 128/75
== END 2019-04-13 23:59 | disposition still patient (30) | DRG 981 ==
LOC: SA 01-11 15:44
PROVIDERS: ADMIT Legal Medicine; ATTEND Legal Medicine
PROC: 5A1955Z Respiratory Ventilation, Greater than 96 Consecutive Hours (ICD-10-PCS; principal; 2019-01-11)
PROC: 0QB10ZZ Excision of Sacrum, Open Approach (ICD-10-PCS; 2019-01-14)
PROC: 02HV33Z Insertion of Infusion Device into Superior Vena Cava, Percutaneous Approach (ICD-10-PCS; 2019-01-30)
DX: J96.12 Chronic respiratory failure with hypercapnia (principal); L89.154 Pressure ulcer of sacral region, stage 4; K22.6 Gastro-esophageal laceration-hemorrhage syndrome; R53.2 Functional quadriplegia; G93.1 Anoxic brain damage, not elsewhere classified; D62 Acute posthemorrhagic anemia; K56.0 Paralytic ileus; R40.3 Persistent vegetative state; Z99.11 Dependence on respirator [ventilator] status; G40.909 Epilepsy, unspecified, not intractable, without status epilepticus; G89.29 Other chronic pain; I12.9 Hypertensive chronic kidney disease with stage 1 through stage 4 chronic kidney disease, or unspecified chronic kidney disease; Z93.1 Gastrostomy status; Z87.820 Personal history of traumatic brain injury; Z93.0 Tracheostomy status; Z86.718 Personal history of other venous thrombosis and embolism; R47.02 Dysphasia; J96.11 Chronic respiratory failure with hypoxia; L30.4 Erythema intertrigo; N18.9 Chronic kidney disease, unspecified; N13.9 Obstructive and reflux uropathy, unspecified; N20.0 Calculus of kidney; Z86.61 Personal history of infections of the central nervous system; Z86.73 Personal history of transient ischemic attack (TIA), and cerebral infarction without residual deficits; N35.919 Unspecified urethral stricture, male, unspecified site; M62.81 Muscle weakness (generalized)
CPT/HCPCS: 31720; 36415; 36569; 71045-TC; 74018; 74250-TC; 76856-TC; 80048-TC; 80061-TC; 81000-TC; 82040-TC; 82272-TC; 82728-TC; 82962-TC; 83540-TC; 83735-TC; 84100-TC; 84134-TC; 84478-TC; 85025-TC; 85027-TC; 85730-TC; 86580-TC; 86850-TC; 86921-TC; 87040-TC; 87070-TC; 87081-TC; 87086-TC; 87186-TC; 94002-TC; 94003-TC; 94760-TC; 94762-TC; 97110-TC; 97112-TC; 97530-TC; A4216; A4217; A4349; A4623; A6248; A6253; A7526; A9563; C1751; C9113; J0696; J0713; J1364; J1815; J1953; J2185; J2405; J2765; J3010; J3475; J3480; J3490; J7030; J7050; J7060; J7070; J8597; P9016-BL; Q2036; Q9963; Q9967

== ENCOUNTER 2019-02-27 08:06 | Day surgery (SDC) | payer OTHER ==
[~2019-02-27] VITALS: Ht 165.1 cm; Wt 51.3 kg
[~2019-02-27 08:06] MED LIST changes: -BACL10TA GT; +LACT-209; -LACT250L14 GT
[2019-02-27] MEDS ORDERED: ANESTHESIA TRAY IN PYXIS 1 EA TRAY MC ONE (08:49)
[2019-02-27] MEDS ORDERED: LIDOCAINE 2% JEL 5 ML TUBE ONE (08:49)
[2019-02-27 11:30] VITALS: BP 119/68
[2019-02-27] MEDS ORDERED: PANT40VI IV (11:38)
[2019-02-27] MEDS ORDERED: AMIN30LI2 GT (11:38)
[2019-02-27] MEDS ORDERED: FERR300L GT (11:38)
[2019-02-27] MEDS ORDERED: SIME80TA15 GT (11:38)
[2019-02-27] MEDS ORDERED: [UNRECOGNIZED DRUG - CODE] IV (11:38)
[2019-02-27] MEDS ORDERED: MULT-24 GT (11:38)
[2019-02-27] MEDS ORDERED: BLOO-668 IN (11:38)
[2019-02-27] MEDS ORDERED: DEXT50DI8 IV (11:38)
[2019-02-27] MEDS ORDERED: TPN ADD IV (11:38)
[2019-02-27] MEDS ORDERED: ONDA4VIA52 IVP (11:38)
[2019-02-27] MEDS ORDERED: THERAHONEY TD (11:38)
[2019-02-27] MEDS ORDERED: HYDR1SOL TP (11:38)
[2019-02-27] MEDS ORDERED: CRANBERRY D MANNOSE GT (11:38)
[2019-02-27] MEDS ORDERED: CLOT15CR35 TP (11:38)
[2019-02-27] MEDS ORDERED: LACT1CAP72 GT (11:38)
[2019-02-27] MEDS ORDERED: BACL10TA GT (11:38)
[2019-02-27] MEDS ORDERED: MERO1VIA IV (11:38)
[2019-02-27] MEDS ORDERED: FAT250EM4 IV (11:38)
[2019-02-27] MEDS ORDERED: MAG30ORA GT (11:38)
[2019-02-27] MEDS ORDERED: COCO120O TP (11:38)
[2019-02-27] MEDS ORDERED: INSU100V3 SQ (11:38)
[2019-02-27] MEDS ORDERED: HYDR-3974 GT (11:38)
[2019-02-27] MEDS ORDERED: ACET650S11 RC ×2 (11:38)
--- NOTE | 2019-02-27 12:22 | NUR ---
SALES REPRESENTATIVE CHURCH FURNITURECOMPUTER REPAIR TECHNICIAN NOTES RECEIVED PT FROM [facility] UNIT REPORT GIVEN THROUGH PHONE BY CAMERON. PT TRANSPORTED VIA BED, ARRIVED IN THE UNIT AT 1040 PHYSICALLY AND ENTERED IN THE SYSTEM AROUND 12PM. PT HAD S/P URETHRAL DILATION THIS MORNING. PT HOOKED TO TELEMONITORING, ST 107. ON VENT, CURRENT SETTING TOLERATED, WITH NO DISTRESS. PT HAD S/P URETHRAL DILATION AT THE OR. GT HOOKED TO LOW INTERMITTENT SUCTION WITH BLOODY DRAINAGE AND MD MADE AWARE. RIGHT FEMORAL PICC PRESENT WITH ON GOING TPN AT 80ML/HR. PIV TO RIGHT ANKLE G20, FLUSHED WITH NS INTACT AND OPERATIONAL. FC 16FR IN PLACE WITH YELLOW URINE PRESENT IN THE BAG. ADMITTING QUALITY CONTROL TECH/LW IN THE UNIT AWARE OF PT'S ADMISSION. PT KEPT COMFORTABLE, CLEAN AND DRY. HOB ELEVATED. PT'S BED IN LOWEST, LOCKED POSITION WITH SR X3. WILL CONTINUE TO MONITOR.
[2019-02-27] MEDS ORDERED: BISACODYL SUPP (10 MG) 10 MG/SUPP.RECT SUPP.RECT RC PRN (12:30)
[2019-02-27] MEDS ORDERED: ACETAMINOPHEN 650 MG/SUPP.RECT RC PRN ×2 (12:30)
[2019-02-27] MEDS ORDERED: MAG HYDROX/AL HYDROX/SIMETH 30 ML UDC GT PRN (12:30)
[2019-02-27] MEDS ORDERED: HYDROCODONE/APAP 5/325MG 1 EACH TABLET GT PRN (12:30)
[2019-02-27] MEDS ORDERED: IPRATROPIUM NEB FS 0.5 MG/2.5 ML AMPUL.NEB IH PRN (12:30)
[2019-02-27] MEDS ORDERED: Medication Not On Formulary EA (Amino Acids 4.25%/D10w (Tpn Additives) 1 EA) IV SCH (12:30)
[2019-02-27] MEDS ORDERED: INSULIN REGULAR, HUMAN 100 UNIT/ML 3 ML VIAL SQ PRN (12:30)
[2019-02-27] MEDS ORDERED: ONDANSETRON HCL/PF 4 MG/2 ML VIAL IVP PRN (12:30)
[2019-02-27] MEDS ORDERED: DEXTROSE 50%-WATER 50 ML DISP.SYRIN IV PRN (12:30)
[2019-02-27] MEDS ORDERED: FAT EMULSIONS IV SCH (12:30)
[2019-02-27] MEDS ORDERED: NA PHOS,M-B/NA PHOS,DI-BA 1 EA ENEMA RC PRN (12:30)
[2019-02-27] MEDS ORDERED: ACETAMINOPHEN 160 MG/5 ML GT PRN (12:30)
--- NOTE | 2019-02-27 12:30 | NUR ---
RN NOTES BLOOD SUGAR 97. WILL CONTINUE TO MONITOR.
--- NOTE | 2019-02-27 12:45 | NUR ---
RN NOTES SKIN ASSESSED. PICTURES TAKEN AND FILED IN THE CHART.
[2019-02-27] MEDS ORDERED: Medication Not On Formulary EA (Amino Acids/Protein Hydrolys (Pro-Stat Liquid) 30 ML) GT SCH (13:00)
[2019-02-27] MEDS ORDERED: MEROPENEM 1 G in IV NS 0.9% 100 ML IV SCH ×2 (13:00→14:00)
[2019-02-27] MEDS ORDERED: MEROPENEM 1 G VIAL IV SCH (13:00)
[2019-02-27] MEDS ORDERED: ERYTHROMYCIN LACTOBIONATE IV SCH (13:00)
[2019-02-27] MEDS ORDERED: IPRATROPIUM NEB FS 0.5 MG/2.5 ML AMPUL.NEB IH SCH (13:30)
[2019-02-27] MEDS ORDERED: TPN IV PRN ×5 (13:30)
[2019-02-27] MEDS ORDERED: TPN BAG #12 IV PRN ×7 (13:30)
[2019-02-27] MEDS ORDERED: TPN BAG #10 IV PRN ×6 (13:30)
[2019-02-27] MEDS ORDERED: ALBUTEROL FS 2.5 MG/3 ML VIAL.NEB IH SCH (13:30)
--- NOTE | 2019-02-27 15:23 | NUR ---
RN NOTES CALLED AND VERIFIED TO DR SMITH REGARDING PT'S STATUS. MS? TELE OR BACK TO [facility] UNIT. PT IN STABLE CONDITION AT THIS TIME. WILL CONTINUE TO MONITOR. AWAITING FOR RESPONSE OF .
[2019-02-27 16:00] VITALS: BP 138/77
[2019-02-27] MEDS ORDERED: DOCUSATE SODIUM LIQ 100 MG/10 ML UDC GT SCH (17:00)
[2019-02-27] MEDS ORDERED: LACTOBACILLUS RHAMNOSUS GG 1 EACH CAP.SPRINK GT SCH (17:00)
--- NOTE | 2019-02-27 17:07 | NUR ---
PLC TECHNICIAN NOTES PT DISCHARGE BACK TO [facility]. PT ON VENT, TOLERATING CURRENT SETTING AND NOT IN ANY DISTRESS. TELEMONITORING AT SR 102 AT THE TIME OF DISCHARGE. REPORT GAVE TO BRENDA AND DAYNA/FARRUKH. 2RTS PRESENT AT BEDSIDE DURING UNIT TRANSFER. DISCHARGE SUMMARY SIGNED BY 2RNS, PT UNABLE TO SIGN. NO BELONGINGS PRESENT IN THE UNIT. SURGEON/DR VIVEROS AND HOSPITALIST/ADMITTING LIQUID NATURAL GAS PLANT OPERATOR/LW AWARE OF PT'S DISCHARGE BACK TO [facility]. VS STABLE AND RECORDED.
--- NOTE | 2019-02-27 17:10 | NUR ---
RN NOTES PT LEFT THE UNIT AT 1650.
[2019-02-27] MEDS ORDERED: BLOOD SUGAR DIAGNOSTIC 1 EACH STRIP IN SCH (18:00)
[2019-02-27] MEDS ORDERED: BACLOFEN (10 MG) 10 MG TABLET GT SCH (18:00)
[2019-02-27] MEDS ORDERED: SIMETHICONE 80 MG TAB.CHEW GT SCH (18:00)
[2019-02-27] MEDS ORDERED: LEVETIRACETAM SOL (5 ML) 100 MG/ML UDC GT SCH (21:00)
[2019-02-27] MEDS ORDERED: CLOTRIMAZOLE 1% 15 GM TUBE TP SCH (21:00)
[2019-02-27] MEDS ORDERED: TIZANIDINE HCL 4 MG TABLET GT SCH (21:00)
[2019-02-27] MEDS ORDERED: ERYTHROMYCIN 250 MG in IV NS 0.9% 100 ML IV SCH (21:00)
[2019-02-27] MEDS ORDERED: CHLORHEXIDINE GLUCONATE 15 ML UDC MM SCH (21:00)
[2019-02-27] MEDS ORDERED: MULTIVITAMINS,THERAGRAN 1 UDTAB TABLET GT SCH (21:00)
[2019-02-27] MEDS ORDERED: TOPIRAMATE 25 MG TABLET GT SCH (21:00)
[2019-02-27] MEDS ORDERED: PANTOPRAZOLE 40 MG VIAL IV SCH (21:00)
[2019-02-27] MEDS ORDERED: HYDROCODONE/APAP 5/325MG 1 EACH TABLET GT SCH (21:00)
[2019-02-27] MEDS ORDERED: METOPROLOL TARTRATE 25 MG TABLET GT SCH (21:00)
[2019-02-27] MEDS ORDERED: SENNOSIDES 8.6 MG TABLET GT SCH (22:00)
[2019-02-28] MEDS ORDERED: FERROUS SULFATE UDC 300 MG/5 ML UDC GT SCH (09:00)
[2019-02-28] MEDS ORDERED: CRANBERRY D MANNOSE GT SCH (09:00)
[2019-02-28] MEDS ORDERED: ZINC SULFATE 220 MG CAPSULE GT SCH (09:00)
[2019-02-28] MEDS ORDERED: FAT EMULSION 20% 500 ML in PREMIX 1 EA IV SCH (14:00)
--- NOTE | 2019-03-02 15:00 | NUR ---
ZENIA received Fax from [facility] Utilization Management TEL: [phone] requesting Facesheet, ED Notes, H&P, Discharge Plan, Clinical Notes, discharge summary. Tracking Number : [id number]. ZENIA faxed Facesheet, ED Notes, H&P, Discharge Plan, Clinical Notes, discharge summary to [phone]. ZENIA received completed fax receipt. No further action required.
== END 2019-02-27 16:58 ==
LOC: DS 08:06 → TELE 12:04 → UNDOADMIN 12:04 → DS 16:58
PROVIDERS: ATTEND Specialist
DX: N35.819 Other urethral stricture, male, unspecified site (principal); R33.8 Other retention of urine; I10 Essential (primary) hypertension; Z86.718 Personal history of other venous thrombosis and embolism; Z79.899 Other long term (current) drug therapy
CPT/HCPCS: 52276; A4217; J1815; J1953; J2185; J3480; J3490; J7030; J1364; J3475

== ENCOUNTER 2019-04-30 10:18 | Outpatient (CLI) | payer OTHER ==
[~2019-04-30 10:18] MED LIST changes: +ACET650S11 RC; -ALBU1.257 IH; +AMIN30LI2 GT; +BACL10TA GT; +BLOO-668 IN; +CLOT15CR35 TP; +COCO120O TP; +CRANBERRY D MANNOSE GT; +DEXT50DI8 IV; +FAT250EM4 IV; -FERR220S2 GT; +FERR300L GT; +HYDR-3974 GT; -HYDR-4354 PO; +HYDR1SOL TP; +INSU100V3 SQ; -LACT-209; +LACT1CAP72 GT; -LANS30CA56 GT; +MAG30ORA GT; -MAGN2400 GT; +MERO1VIA IV; +MULT-24 GT; -MULT9LIQ6 GT; +ONDA4VIA52 IVP; +PANT40VI IV; -SENN-168 GT; +SENN-261 GT; +SIME80TA15 GT; +THERAHONEY TD; +TPN ADD IV; +[UNRECOGNIZED DRUG - CODE] IV
== END 2019-04-30 23:59 | disposition home or self-care (01) ==
LOC: CT 10:18
PROVIDERS: ATTEND Legal Medicine
DX: G93.40 Encephalopathy, unspecified (principal); G93.89 Other specified disorders of brain
CPT/HCPCS: 70450-TC

== ENCOUNTER 2019-08-07 06:46 | Outpatient (CLI) | payer OTHER | END 2019-08-07 23:59 | disposition home or self-care (01) | LOC: RAD 06:46 | PROVIDERS: ATTEND Legal Medicine | DX: I51.7 Cardiomegaly (principal); R91.8 Other nonspecific abnormal finding of lung field; Z93.0 Tracheostomy status | CPT/HCPCS: 71045-TC ==

== ENCOUNTER → 2019-08-23 | Day surgery (SDC) | payer OTHER | END | disposition home or self-care (01) | LOC: DS 06:00 | PROVIDERS: ATTEND Internal Medicine | DX: K94.23 Gastrostomy malfunction (principal); E46 Unspecified protein-calorie malnutrition; I10 Essential (primary) hypertension; Z79.899 Other long term (current) drug therapy | CPT/HCPCS: 43246; J0690; J2704; 43760 ==

== ENCOUNTER 2019-08-28 11:28 | Outpatient (CLI) | payer OTHER ==
[2019-08-29] MEDS ORDERED: ACETAMINOPHEN 650 MG/SUPP.RECT RC ONE (00:06)
== END 2019-08-28 23:59 | disposition home or self-care (01) ==
LOC: CT 11:28
PROVIDERS: ATTEND Legal Medicine
DX: N20.0 Calculus of kidney (principal); Z93.1 Gastrostomy status
CPT/HCPCS: 74150; J7030

== ENCOUNTER 2019-09-10 15:57 | Outpatient (CLI) | payer OTHER ==
[2019-09-10] MEDS ORDERED: CT SWABBABLE VALVE TRANS SET 1 EA INFUS.SET MC ONE (16:14)
[2019-09-10] MEDS ORDERED: IOHEXOL-300 100 ML VIAL IV ONE (16:14)
[2019-09-10] MEDS ORDERED: IV NS 0.9% 250 ML IV ONE (16:15)
== END 2019-09-10 23:59 | disposition home or self-care (01) ==
LOC: CT 15:57
PROVIDERS: ATTEND Internal Medicine Gastroenterology
DX: J98.11 Atelectasis (principal); N20.0 Calculus of kidney; M85.88 Other specified disorders of bone density and structure, other site
CPT/HCPCS: 74177; J7050; Q9967

== ENCOUNTER 2020-05-05 15:11 | Outpatient (CLI) | payer OTHER | END 2020-05-05 23:59 | disposition home or self-care (01) | LOC: CT 15:11 | PROVIDERS: ATTEND Internal Medicine | DX: K80.20 Calculus of gallbladder without cholecystitis without obstruction (principal); N20.0 Calculus of kidney; K56.609 Unspecified intestinal obstruction, unspecified as to partial versus complete obstruction; J98.4 Other disorders of lung; D16.8 Benign neoplasm of pelvic bones, sacrum and coccyx; N62 Hypertrophy of breast | CPT/HCPCS: 74150-TC ==

== ENCOUNTER → 2020-05-26 | Day surgery (SDC) | payer OTHER ==
[~2020-05-26] MED LIST changes: +FAMOTIDINE/PF INJ 20 MG/2 ML VIAL IV ONE; +MIDAZOLAM HCL 2 MG/2ML VIAL ONE
== END | disposition home or self-care (01) ==
LOC: DS 08:32
PROVIDERS: ATTEND Internal Medicine
DX: R13.10 Dysphagia, unspecified (principal)
CPT/HCPCS: 44373; A4623; A7526; J2250 ×2; J2704; 43246; J3490

== ENCOUNTER 2020-05-31 08:22 | Outpatient (CLI) | payer OTHER ==
[~2020-05-31 08:22] MED LIST changes: -FAMOTIDINE/PF INJ 20 MG/2 ML VIAL IV ONE; -MIDAZOLAM HCL 2 MG/2ML VIAL ONE
== END 2020-05-31 23:59 | disposition home or self-care (01) ==
LOC: CT 08:22
PROVIDERS: ATTEND Internal Medicine
DX: N20.0 Calculus of kidney (principal); Q76.49 Other congenital malformations of spine, not associated with scoliosis

== ENCOUNTER 2022-04-14 | Inpatient (IN) | payer OTHER ==
[~2022-04-14] VITALS: Ht 165.1 cm; Wt 66.2 kg
[2022-04-16] MEDS ORDERED: ACETAMINOPHEN SUP SA PATIENTS 650 MG SUPP RC PRN (06:45)
[2022-04-16] MEDS ORDERED: ACETAMINOPHEN 650 MG SUPP.RECT RC PRN (06:45)
[2022-04-16] MEDS ORDERED: ALBUTEROL FS 2.5 MG/3 ML VIAL.NEB IH PRN (06:45)
[2022-04-16] MEDS ORDERED: Z GUARD REMEDY 4 OZ OINT TP SCH (06:45)
[2022-04-16] MEDS ORDERED: TUBERCULIN,PURIF.PROT.DERIV. 5 TU/0.1 ML VIAL ID SCH (06:45)
[2022-04-16] MEDS ORDERED: IPRATROPIUM NEB FS 0.5 MG/2.5 ML AMPUL.NEB IH PRN (06:45)
[2022-04-16] MEDS ORDERED: MAG HYDROX/AL HYDROX/SIMETH 30 ML UDC JT PRN (06:45)
[2022-04-16] MEDS ORDERED: ACETAMINOPHEN 650 MG/20 ML UDC- SA PATIENTS-FEVER ONLY JT PRN (06:45)
[2022-04-16] MEDS ORDERED: COCONUT OIL TP PRN (06:45)
[2022-04-16] MEDS ORDERED: MINERAL OIL 133 ML (PYXIS) 1 EA ENEMA RC PRN (06:45)
[2022-04-16] MEDS: IPRATROPIUM NEB FS 0.5 MG/2.5 ML AMPUL.NEB NEB SCH ×3 (07:35→18:39)
[2022-04-16] MEDS: ALBUTEROL FS 2.5 MG/3 ML VIAL.NEB NEB SCH ×3 (07:35→18:39)
[2022-04-16 07:45] VITALS: BP 133/84
[2022-04-16] MEDS: HYDROGEN PEROXIDE 480 ML BOTTLE TP SCH ×2 (09:00→20:08)
[2022-04-16] MEDS: CRANBERRY D MANNOSE JT SCH (09:00)
[2022-04-16] MEDS: CITRIC ACID/SODIUM CITRATE (BICITRA)15 ML UDC JT SCH ×4 (09:10→21:08)
[2022-04-16] MEDS: LEVETIRACETAM SOL (5 ML) 100 MG/ML UDC JT SCH ×2 (09:11→21:08)
[2022-04-16] MEDS: DOCUSATE SODIUM LIQ 100 MG/10 ML UDC JT SCH ×2 (09:11→17:26)
[2022-04-16] MEDS: FERROUS SULFATE - FOR SA ONLY 330 MG/7.5 ML UDC JT SCH (09:11)
[2022-04-16] MEDS: METOPROLOL TARTRATE 25 MG TABLET JT SCH ×2 (09:11→21:08)
[2022-04-16] MEDS: OMEPRAZOLE 20 MG CAPSULE.DR JT SCH ×2 (09:12→21:08)
[2022-04-16] MEDS: TIZANIDINE 2MG TABLET JT SCH ×2 (09:12→21:08)
[2022-04-16] MEDS: TOPIRAMATE 50 MG JT SCH ×2 (09:12→21:08)
[2022-04-16] MEDS: CHLORHEXIDINE GLUCONATE 15 ML UDC MM SCH ×2 (09:12→21:08)
[2022-04-16] MEDS: [UNRECOGNIZED DRUG - REMARK] JT SCH (09:12)
[2022-04-16] MEDS: HYDROCODONE/APAP 5/325MG TABLET JT SCH (09:12)
[2022-04-16] MEDS: Z GUARD REMEDY 4 OZ OINT TP SCH ×2 (09:13→21:08)
[2022-04-16] MEDS: METOCLOPRAMIDE HCL 10 MG/10 ML UDC JT SCH ×3 (12:00→23:47)
[2022-04-16] MEDS: ERYTHROMYCIN ETHYLSUCCINATE 200 MG/5 ML SUSPENSION JT SCH ×3 (12:00→23:47)
[2022-04-16] MEDS: BACLOFEN (10 MG) 10 MG TABLET JT SCH ×3 (12:00→23:47)
[2022-04-16] MEDS: SIMETHICONE SUSP 40 MG/0.6 ML BOTTLE JT SCH ×3 (12:00→23:47)
[2022-04-16] MEDS: VITAL AF 1.2 1,000 ML BOTTLE GT PRN (14:00)
[2022-04-16 19:28] VITALS: BP 119/84
[2022-04-16] MEDS: MULTIVIT W/MINERALS 1 TAB TABLET JT SCH (21:08)
[2022-04-16] MEDS: SENNOSIDES 8.6 MG TABLET JT SCH (21:08)
[2022-04-17] MEDS: ALBUTEROL FS 2.5 MG/3 ML VIAL.NEB NEB SCH ×4 (00:57→20:12)
[2022-04-17] MEDS: IPRATROPIUM NEB FS 0.5 MG/2.5 ML AMPUL.NEB NEB SCH ×4 (00:57→20:12)
[2022-04-17] MEDS: ERYTHROMYCIN ETHYLSUCCINATE 200 MG/5 ML SUSPENSION JT SCH ×3 (05:53→17:46)
[2022-04-17] MEDS: BACLOFEN (10 MG) 10 MG TABLET JT SCH ×3 (05:53→17:46)
[2022-04-17] MEDS: SIMETHICONE SUSP 40 MG/0.6 ML BOTTLE JT SCH ×3 (05:54→17:46)
[2022-04-17] MEDS: METOCLOPRAMIDE HCL 10 MG/10 ML UDC JT SCH ×3 (05:54→17:46)
[2022-04-17 07:30] VITALS: BP 136/80
[2022-04-17] MEDS: HYDROGEN PEROXIDE 480 ML BOTTLE TP SCH ×2 (09:32→20:12)
[2022-04-17] MEDS: DOCUSATE SODIUM LIQ 100 MG/10 ML UDC JT SCH ×2 (09:58→17:46)
[2022-04-17] MEDS: CITRIC ACID/SODIUM CITRATE (BICITRA)15 ML UDC JT SCH ×4 (09:58→21:30)
[2022-04-17] MEDS: FERROUS SULFATE - FOR SA ONLY 330 MG/7.5 ML UDC JT SCH (09:58)
[2022-04-17] MEDS: LEVETIRACETAM SOL (5 ML) 100 MG/ML UDC JT SCH ×2 (09:58→21:30)
[2022-04-17] MEDS: CRANBERRY D MANNOSE JT SCH (09:58)
[2022-04-17] MEDS: TOPIRAMATE 50 MG JT SCH ×2 (09:59→21:31)
[2022-04-17] MEDS: CHLORHEXIDINE GLUCONATE 15 ML UDC MM SCH ×2 (09:59→21:31)
[2022-04-17] MEDS: Z GUARD REMEDY 4 OZ OINT TP SCH ×3 (09:59→21:31)
[2022-04-17] MEDS: TIZANIDINE 2MG TABLET JT SCH ×2 (09:59→21:31)
[2022-04-17] MEDS: [UNRECOGNIZED DRUG - REMARK] JT SCH (09:59)
[2022-04-17] MEDS: HYDROCODONE/APAP 5/325MG TABLET JT SCH (09:59)
[2022-04-17] MEDS: OMEPRAZOLE 20 MG CAPSULE.DR JT SCH ×2 (09:59→21:31)
[2022-04-17] MEDS: METOPROLOL TARTRATE 25 MG TABLET JT SCH ×2 (09:59→21:31)
[2022-04-17 12:16] VITALS: BP 132/76
[2022-04-17] MEDS: VITAL AF 1.2 1,000 ML BOTTLE GT PRN (17:46)
[2022-04-17 20:29] VITALS: BP 111/75
[2022-04-17] MEDS: SENNOSIDES 8.6 MG TABLET JT SCH (21:31)
[2022-04-17] MEDS: MULTIVIT W/MINERALS 1 TAB TABLET JT SCH (21:31)
[2022-04-18 00:12] VITALS: BP 123/83
[2022-04-18] MEDS: ERYTHROMYCIN ETHYLSUCCINATE 200 MG/5 ML SUSPENSION JT SCH ×4 (00:14→17:13)
[2022-04-18] MEDS: METOCLOPRAMIDE HCL 10 MG/10 ML UDC JT SCH ×4 (00:14→17:14)
[2022-04-18] MEDS: SIMETHICONE SUSP 40 MG/0.6 ML BOTTLE JT SCH ×4 (00:14→17:13)
[2022-04-18] MEDS: BACLOFEN (10 MG) 10 MG TABLET JT SCH ×4 (00:14→17:13)
[2022-04-18] MEDS: ALBUTEROL FS 2.5 MG/3 ML VIAL.NEB NEB SCH ×4 (01:49→20:09)
[2022-04-18] MEDS: IPRATROPIUM NEB FS 0.5 MG/2.5 ML AMPUL.NEB NEB SCH ×4 (01:49→20:09)
[2022-04-18] MEDS: BISACODYL SUPP (10 MG) 10 MG/SUPP.RECT SUPP.RECT RC PRN (06:58)
[2022-04-18 07:41] VITALS: BP 139/89
[2022-04-18] MEDS: HYDROGEN PEROXIDE 480 ML BOTTLE TP SCH ×2 (09:00→20:21)
[2022-04-18] MEDS: HYDROGEN PEROXIDE 480 ML BOTTLE TP PRN (09:16)
[2022-04-18] MEDS: DOCUSATE SODIUM LIQ 100 MG/10 ML UDC JT SCH ×2 (09:29→17:13)
[2022-04-18] MEDS: CITRIC ACID/SODIUM CITRATE (BICITRA)15 ML UDC JT SCH ×4 (09:29→20:44)
[2022-04-18] MEDS: CRANBERRY D MANNOSE JT SCH (09:30)
[2022-04-18] MEDS: LEVETIRACETAM SOL (5 ML) 100 MG/ML UDC JT SCH ×2 (09:30→20:44)
[2022-04-18] MEDS: FERROUS SULFATE - FOR SA ONLY 330 MG/7.5 ML UDC JT SCH (09:30)
[2022-04-18] MEDS: TIZANIDINE 2MG TABLET JT SCH ×2 (09:33→20:44)
[2022-04-18] MEDS: METOPROLOL TARTRATE 25 MG TABLET JT SCH ×2 (09:33→20:44)
[2022-04-18] MEDS: [UNRECOGNIZED DRUG - REMARK] JT SCH (09:33)
[2022-04-18] MEDS: CHLORHEXIDINE GLUCONATE 15 ML UDC MM SCH ×2 (09:34→20:45)
[2022-04-18] MEDS: HYDROCODONE/APAP 5/325MG TABLET JT SCH (09:34)
[2022-04-18] MEDS: OMEPRAZOLE 20 MG CAPSULE.DR JT SCH ×2 (09:34→20:45)
[2022-04-18] MEDS: Z GUARD REMEDY 4 OZ OINT TP SCH ×4 (09:34→20:45)
[2022-04-18] MEDS: TOPIRAMATE 50 MG JT SCH ×2 (09:34→20:45)
[2022-04-18 12:19] VITALS: BP 128/77
[2022-04-18] MEDS: VITAL AF 1.2 1,000 ML BOTTLE GT PRN (14:28)
[2022-04-18] MEDS: POLYVINYL ALCOHOL 15 ML BOTTLE EACHEYE PRN (18:15)
[2022-04-18 19:42] VITALS: BP 130/79
[2022-04-18] MEDS: NEOMY SULF/BACITRAC ZN/POLY 15 GM TUBE TP SCH (20:45)
[2022-04-18] MEDS: SENNOSIDES 8.6 MG TABLET JT SCH (21:25)
[2022-04-18] MEDS: MULTIVIT W/MINERALS 1 TAB TABLET JT SCH (21:25)
[2022-04-19 00:11] VITALS: BP 125/68
[2022-04-19] MEDS: SIMETHICONE SUSP 40 MG/0.6 ML BOTTLE JT SCH ×5 (00:23→23:45)
[2022-04-19] MEDS: BACLOFEN (10 MG) 10 MG TABLET JT SCH ×5 (00:23→23:45)
[2022-04-19] MEDS: ERYTHROMYCIN ETHYLSUCCINATE 200 MG/5 ML SUSPENSION JT SCH ×5 (00:23→23:45)
[2022-04-19] MEDS: METOCLOPRAMIDE HCL 10 MG/10 ML UDC JT SCH ×5 (00:23→23:45)
[2022-04-19] MEDS: ALBUTEROL FS 2.5 MG/3 ML VIAL.NEB NEB SCH ×4 (02:01→19:08)
[2022-04-19] MEDS: IPRATROPIUM NEB FS 0.5 MG/2.5 ML AMPUL.NEB NEB SCH ×4 (02:01→19:08)
[2022-04-19 07:42] VITALS: BP 145/92
[2022-04-19] MEDS: HYDROGEN PEROXIDE 480 ML BOTTLE TP SCH ×2 (09:00→21:20)
[2022-04-19] MEDS: CRANBERRY D MANNOSE JT SCH (09:11)
[2022-04-19] MEDS: CITRIC ACID/SODIUM CITRATE (BICITRA)15 ML UDC JT SCH ×4 (09:11→21:28)
[2022-04-19] MEDS: FERROUS SULFATE - FOR SA ONLY 330 MG/7.5 ML UDC JT SCH (09:11)
[2022-04-19] MEDS: DOCUSATE SODIUM LIQ 100 MG/10 ML UDC JT SCH ×2 (09:11→17:16)
[2022-04-19] MEDS: LEVETIRACETAM SOL (5 ML) 100 MG/ML UDC JT SCH ×2 (09:12→21:28)
[2022-04-19] MEDS: METOPROLOL TARTRATE 25 MG TABLET JT SCH ×2 (09:21→21:29)
[2022-04-19] MEDS: TOPIRAMATE 50 MG JT SCH ×2 (09:22→21:29)
[2022-04-19] MEDS: [UNRECOGNIZED DRUG - REMARK] JT SCH (09:22)
[2022-04-19] MEDS: TIZANIDINE 2MG TABLET JT SCH ×2 (09:22→21:29)
[2022-04-19] MEDS: NEOMY SULF/BACITRAC ZN/POLY 15 GM TUBE TP SCH ×2 (09:24→21:29)
[2022-04-19] MEDS: OMEPRAZOLE 20 MG CAPSULE.DR JT SCH ×2 (09:24→21:29)
[2022-04-19] MEDS: CHLORHEXIDINE GLUCONATE 15 ML UDC MM SCH ×2 (09:24→21:29)
[2022-04-19] MEDS: HYDROCODONE/APAP 5/325MG TABLET JT SCH (09:24)
[2022-04-19] MEDS: Z GUARD REMEDY 4 OZ OINT TP SCH ×4 (09:25→21:29)
[2022-04-19] MEDS: POLYVINYL ALCOHOL 15 ML BOTTLE EACHEYE PRN (13:37)
[2022-04-19] MEDS: VITAL AF 1.2 1,000 ML BOTTLE GT PRN (14:23)
[2022-04-19 19:08] VITALS: BP 127/68
[2022-04-19] MEDS: MULTIVIT W/MINERALS 1 TAB TABLET JT SCH (21:29)
[2022-04-19] MEDS: SENNOSIDES 8.6 MG TABLET JT SCH (21:29)
[2022-04-19 23:51] VITALS: BP 118/55
[2022-04-20] MEDS: IPRATROPIUM NEB FS 0.5 MG/2.5 ML AMPUL.NEB NEB SCH ×4 (00:50→19:19)
[2022-04-20] MEDS: ALBUTEROL FS 2.5 MG/3 ML VIAL.NEB NEB SCH ×4 (00:50→19:19)
[2022-04-20] MEDS: ERYTHROMYCIN ETHYLSUCCINATE 200 MG/5 ML SUSPENSION JT SCH ×4 (05:34→23:35)
[2022-04-20] MEDS: BACLOFEN (10 MG) 10 MG TABLET JT SCH ×4 (05:34→23:35)
[2022-04-20] MEDS: SIMETHICONE SUSP 40 MG/0.6 ML BOTTLE JT SCH ×4 (05:34→23:35)
[2022-04-20] MEDS: METOCLOPRAMIDE HCL 10 MG/10 ML UDC JT SCH ×4 (05:34→23:35)
[2022-04-20 07:34] VITALS: BP 128/78
[2022-04-20] MEDS: NEOMY SULF/BACITRAC ZN/POLY 15 GM TUBE TP SCH ×2 (09:00→21:28)
[2022-04-20] MEDS: HYDROGEN PEROXIDE 480 ML BOTTLE TP SCH ×2 (09:03→20:42)
[2022-04-20] MEDS: FERROUS SULFATE - FOR SA ONLY 330 MG/7.5 ML UDC JT SCH (09:11)
[2022-04-20] MEDS: DOCUSATE SODIUM LIQ 100 MG/10 ML UDC JT SCH ×2 (09:11→16:51)
[2022-04-20] MEDS: METOPROLOL TARTRATE 25 MG TABLET JT SCH ×2 (09:12→21:28)
[2022-04-20] MEDS: LEVETIRACETAM SOL (5 ML) 100 MG/ML UDC JT SCH ×2 (09:12→21:28)
[2022-04-20] MEDS: OMEPRAZOLE 20 MG CAPSULE.DR JT SCH ×2 (09:13→21:28)
[2022-04-20] MEDS: CHLORHEXIDINE GLUCONATE 15 ML UDC MM SCH ×2 (09:13→21:28)
[2022-04-20] MEDS: TOPIRAMATE 50 MG JT SCH ×2 (09:13→21:28)
[2022-04-20] MEDS: TIZANIDINE 2MG TABLET JT SCH ×2 (09:13→21:28)
[2022-04-20] MEDS: [UNRECOGNIZED DRUG - REMARK] JT SCH (09:13)
[2022-04-20] MEDS: HYDROCODONE/APAP 5/325MG TABLET JT SCH (09:15)
[2022-04-20] MEDS: CRANBERRY D MANNOSE JT SCH (09:16)
[2022-04-20] MEDS: CITRIC ACID/SODIUM CITRATE (BICITRA)15 ML UDC JT SCH ×4 (09:17→21:28)
[2022-04-20] MEDS: Z GUARD REMEDY 4 OZ OINT TP SCH ×4 (09:17→21:29)
[2022-04-20 12:14] VITALS: BP 138/68
[2022-04-20] MEDS: VITAL AF 1.2 1,000 ML BOTTLE GT PRN (18:18)
[2022-04-20 18:56] VITALS: BP 127/85
[2022-04-20] MEDS: MULTIVIT W/MINERALS 1 TAB TABLET JT SCH (21:29)
[2022-04-20] MEDS: SENNOSIDES 8.6 MG TABLET JT SCH (21:29)
[2022-04-21 00:03] VITALS: BP 116/72
[2022-04-21] MEDS: IPRATROPIUM NEB FS 0.5 MG/2.5 ML AMPUL.NEB NEB SCH ×4 (01:30→18:49)
[2022-04-21] MEDS: ALBUTEROL FS 2.5 MG/3 ML VIAL.NEB NEB SCH ×4 (01:30→18:49)
[2022-04-21] MEDS: METOCLOPRAMIDE HCL 10 MG/10 ML UDC JT SCH ×3 (05:52→17:46)
[2022-04-21] MEDS: SIMETHICONE SUSP 40 MG/0.6 ML BOTTLE JT SCH ×3 (05:52→17:46)
[2022-04-21] MEDS: BACLOFEN (10 MG) 10 MG TABLET JT SCH ×3 (05:52→17:46)
[2022-04-21] MEDS: ERYTHROMYCIN ETHYLSUCCINATE 200 MG/5 ML SUSPENSION JT SCH ×3 (05:52→17:46)
[2022-04-21 07:42] VITALS: BP 147/90
[2022-04-21] MEDS: FERROUS SULFATE - FOR SA ONLY 330 MG/7.5 ML UDC JT SCH (09:05)
[2022-04-21] MEDS: DOCUSATE SODIUM LIQ 100 MG/10 ML UDC JT SCH ×2 (09:05→17:46)
[2022-04-21] MEDS: CITRIC ACID/SODIUM CITRATE (BICITRA)15 ML UDC JT SCH ×4 (09:05→21:12)
[2022-04-21] MEDS: CRANBERRY D MANNOSE JT SCH (09:05)
[2022-04-21] MEDS: LEVETIRACETAM SOL (5 ML) 100 MG/ML UDC JT SCH ×2 (09:05→21:12)
[2022-04-21] MEDS: NEOMY SULF/BACITRAC ZN/POLY 15 GM TUBE TP SCH ×2 (09:06→21:13)
[2022-04-21] MEDS: METOPROLOL TARTRATE 25 MG TABLET JT SCH ×2 (09:06→21:13)
[2022-04-21] MEDS: Z GUARD REMEDY 4 OZ OINT TP SCH ×4 (09:06→21:13)
[2022-04-21] MEDS: HYDROCODONE/APAP 5/325MG TABLET JT SCH (09:06)
[2022-04-21] MEDS: [UNRECOGNIZED DRUG - REMARK] JT SCH (09:06)
[2022-04-21] MEDS: TOPIRAMATE 50 MG JT SCH ×2 (09:06→21:13)
[2022-04-21] MEDS: OMEPRAZOLE 20 MG CAPSULE.DR JT SCH ×2 (09:06→21:13)
[2022-04-21] MEDS: TIZANIDINE 2MG TABLET JT SCH ×2 (09:06→21:13)
[2022-04-21] MEDS: CHLORHEXIDINE GLUCONATE 15 ML UDC MM SCH ×2 (09:06→21:13)
[2022-04-21] MEDS: HYDROGEN PEROXIDE 480 ML BOTTLE TP SCH ×2 (09:55→20:49)
[2022-04-21] MEDS: VITAL AF 1.2 1,000 ML BOTTLE GT PRN (13:49)
[2022-04-21 19:39] VITALS: BP 129/80
[2022-04-21] MEDS: SENNOSIDES 8.6 MG TABLET JT SCH (21:13)
[2022-04-21] MEDS: MULTIVIT W/MINERALS 1 TAB TABLET JT SCH (21:13)
[2022-04-22] MEDS: ERYTHROMYCIN ETHYLSUCCINATE 200 MG/5 ML SUSPENSION JT SCH ×5 (00:28→23:40)
[2022-04-22] MEDS: SIMETHICONE SUSP 40 MG/0.6 ML BOTTLE JT SCH ×5 (00:28→23:40)
[2022-04-22] MEDS: METOCLOPRAMIDE HCL 10 MG/10 ML UDC JT SCH ×5 (00:28→23:40)
[2022-04-22] MEDS: BACLOFEN (10 MG) 10 MG TABLET JT SCH ×5 (00:28→23:40)
[2022-04-22] MEDS: IPRATROPIUM NEB FS 0.5 MG/2.5 ML AMPUL.NEB NEB SCH ×4 (00:44→18:48)
[2022-04-22] MEDS: ALBUTEROL FS 2.5 MG/3 ML VIAL.NEB NEB SCH ×4 (00:44→18:48)
[2022-04-22 01:42] VITALS: BP 131/81
[2022-04-22 07:07] VITALS: BP 132/89
[2022-04-22] MEDS: CITRIC ACID/SODIUM CITRATE (BICITRA)15 ML UDC JT SCH ×4 (09:40→20:32)
[2022-04-22] MEDS: FERROUS SULFATE - FOR SA ONLY 330 MG/7.5 ML UDC JT SCH (09:40)
[2022-04-22] MEDS: DOCUSATE SODIUM LIQ 100 MG/10 ML UDC JT SCH ×2 (09:40→17:54)
[2022-04-22] MEDS: CRANBERRY D MANNOSE JT SCH (09:40)
[2022-04-22] MEDS: LEVETIRACETAM SOL (5 ML) 100 MG/ML UDC JT SCH ×2 (09:41→20:32)
[2022-04-22] MEDS: METOPROLOL TARTRATE 25 MG TABLET JT SCH ×2 (09:42→20:33)
[2022-04-22] MEDS: TOPIRAMATE 50 MG JT SCH ×2 (09:43→20:33)
[2022-04-22] MEDS: [UNRECOGNIZED DRUG - REMARK] JT SCH (09:43)
[2022-04-22] MEDS: TIZANIDINE 2MG TABLET JT SCH ×2 (09:43→20:33)
[2022-04-22] MEDS: HYDROCODONE/APAP 5/325MG TABLET JT SCH (09:44)
[2022-04-22] MEDS: CHLORHEXIDINE GLUCONATE 15 ML UDC MM SCH ×2 (09:45→20:33)
[2022-04-22] MEDS: Z GUARD REMEDY 4 OZ OINT TP SCH ×4 (09:45→20:33)
[2022-04-22] MEDS: OMEPRAZOLE 20 MG CAPSULE.DR JT SCH ×2 (09:45→20:33)
[2022-04-22] MEDS: NEOMY SULF/BACITRAC ZN/POLY 15 GM TUBE TP SCH ×2 (09:45→20:33)
[2022-04-22] MEDS: HYDROGEN PEROXIDE 480 ML BOTTLE TP SCH ×2 (09:55→20:27)
[2022-04-22 11:28] VITALS: BP 103/70
[2022-04-22] MEDS: VITAL AF 1.2 1,000 ML BOTTLE GT PRN (17:57)
[2022-04-22 20:01] VITALS: BP 126/70
[2022-04-22] MEDS: SENNOSIDES 8.6 MG TABLET JT SCH (21:48)
[2022-04-22] MEDS: MULTIVIT W/MINERALS 1 TAB TABLET JT SCH (21:48)
[2022-04-23] MEDS: IPRATROPIUM NEB FS 0.5 MG/2.5 ML AMPUL.NEB NEB SCH ×4 (00:40→20:21)
[2022-04-23] MEDS: ALBUTEROL FS 2.5 MG/3 ML VIAL.NEB NEB SCH ×4 (00:40→20:21)
[2022-04-23] MEDS: ERYTHROMYCIN ETHYLSUCCINATE 200 MG/5 ML SUSPENSION JT SCH ×3 (05:36→17:07)
[2022-04-23] MEDS: SIMETHICONE SUSP 40 MG/0.6 ML BOTTLE JT SCH ×3 (05:37→17:07)
[2022-04-23] MEDS: METOCLOPRAMIDE HCL 10 MG/10 ML UDC JT SCH ×3 (05:37→17:07)
[2022-04-23] MEDS: BACLOFEN (10 MG) 10 MG TABLET JT SCH ×3 (05:37→17:07)
[2022-04-23 07:10] VITALS: BP 120/76
[2022-04-23] MEDS: DOCUSATE SODIUM LIQ 100 MG/10 ML UDC JT SCH ×2 (09:05→16:24)
[2022-04-23] MEDS: LEVETIRACETAM SOL (5 ML) 100 MG/ML UDC JT SCH ×2 (09:05→20:49)
[2022-04-23] MEDS: CRANBERRY D MANNOSE JT SCH (09:05)
[2022-04-23] MEDS: CITRIC ACID/SODIUM CITRATE (BICITRA)15 ML UDC JT SCH ×4 (09:05→20:48)
[2022-04-23] MEDS: FERROUS SULFATE - FOR SA ONLY 330 MG/7.5 ML UDC JT SCH (09:05)
[2022-04-23] MEDS: METOPROLOL TARTRATE 25 MG TABLET JT SCH ×2 (09:06→20:49)
[2022-04-23] MEDS: TOPIRAMATE 50 MG JT SCH ×2 (09:06→20:49)
[2022-04-23] MEDS: CHLORHEXIDINE GLUCONATE 15 ML UDC MM SCH ×2 (09:06→20:49)
[2022-04-23] MEDS: Z GUARD REMEDY 4 OZ OINT TP SCH ×4 (09:06→20:49)
[2022-04-23] MEDS: TIZANIDINE 2MG TABLET JT SCH ×2 (09:06→20:49)
[2022-04-23] MEDS: HYDROCODONE/APAP 5/325MG TABLET JT SCH (09:06)
[2022-04-23] MEDS: [UNRECOGNIZED DRUG - REMARK] JT SCH (09:06)
[2022-04-23] MEDS: NEOMY SULF/BACITRAC ZN/POLY 15 GM TUBE TP SCH ×2 (09:06→20:49)
[2022-04-23] MEDS: OMEPRAZOLE 20 MG CAPSULE.DR JT SCH ×2 (09:06→20:49)
[2022-04-23] MEDS: HYDROGEN PEROXIDE 480 ML BOTTLE TP SCH ×2 (09:48→21:10)
[2022-04-23 11:42] VITALS: BP 124/71
[2022-04-23] MEDS: VITAL AF 1.2 1,000 ML BOTTLE GT PRN (17:20)
[2022-04-23 19:43] VITALS: BP 130/85
[2022-04-23] MEDS: SENNOSIDES 8.6 MG TABLET JT SCH (21:57)
[2022-04-23] MEDS: MULTIVIT W/MINERALS 1 TAB TABLET JT SCH (21:57)
[2022-04-24] MEDS: SIMETHICONE SUSP 40 MG/0.6 ML BOTTLE JT SCH ×5 (00:32→23:06)
[2022-04-24] MEDS: METOCLOPRAMIDE HCL 10 MG/10 ML UDC JT SCH ×5 (00:32→23:06)
[2022-04-24] MEDS: BACLOFEN (10 MG) 10 MG TABLET JT SCH ×5 (00:32→23:06)
[2022-04-24] MEDS: ERYTHROMYCIN ETHYLSUCCINATE 200 MG/5 ML SUSPENSION JT SCH ×5 (00:32→23:06)
[2022-04-24] MEDS: IPRATROPIUM NEB FS 0.5 MG/2.5 ML AMPUL.NEB NEB SCH ×4 (01:22→20:07)
[2022-04-24] MEDS: ALBUTEROL FS 2.5 MG/3 ML VIAL.NEB NEB SCH ×4 (01:22→20:07)
[2022-04-24 08:00] VITALS: BP 142/75
[2022-04-24] MEDS: HYDROGEN PEROXIDE 480 ML BOTTLE TP SCH ×2 (08:24→20:07)
[2022-04-24] MEDS: CRANBERRY D MANNOSE JT SCH (09:01)
[2022-04-24] MEDS: TOPIRAMATE 50 MG JT SCH ×2 (09:01→20:51)
[2022-04-24] MEDS: [UNRECOGNIZED DRUG - REMARK] JT SCH (09:01)
[2022-04-24] MEDS: CITRIC ACID/SODIUM CITRATE (BICITRA)15 ML UDC JT SCH ×4 (09:01→20:50)
[2022-04-24] MEDS: DOCUSATE SODIUM LIQ 100 MG/10 ML UDC JT SCH ×2 (09:01→17:20)
[2022-04-24] MEDS: LEVETIRACETAM SOL (5 ML) 100 MG/ML UDC JT SCH ×2 (09:01→20:50)
[2022-04-24] MEDS: METOPROLOL TARTRATE 25 MG TABLET JT SCH ×2 (09:01→20:50)
[2022-04-24] MEDS: TIZANIDINE 2MG TABLET JT SCH ×2 (09:01→20:50)
[2022-04-24] MEDS: FERROUS SULFATE - FOR SA ONLY 330 MG/7.5 ML UDC JT SCH (09:01)
[2022-04-24] MEDS: NEOMY SULF/BACITRAC ZN/POLY 15 GM TUBE TP SCH ×2 (09:02→20:51)
[2022-04-24] MEDS: CHLORHEXIDINE GLUCONATE 15 ML UDC MM SCH ×2 (09:02→20:51)
[2022-04-24] MEDS: Z GUARD REMEDY 4 OZ OINT TP SCH ×4 (09:02→20:51)
[2022-04-24] MEDS: OMEPRAZOLE 20 MG CAPSULE.DR JT SCH ×2 (09:02→20:51)
[2022-04-24] MEDS: HYDROCODONE/APAP 5/325MG TABLET JT SCH (09:02)
[2022-04-24 12:00] VITALS: BP 130/81
[2022-04-24] MEDS: VITAL AF 1.2 1,000 ML BOTTLE GT PRN (17:21)
[2022-04-24] MEDS: ONDANSETRON 4 MG TAB.RAPDIS JT PRN (20:51)
[2022-04-24 21:38] VITALS: BP 124/97
[2022-04-24] MEDS: MULTIVIT W/MINERALS 1 TAB TABLET JT SCH (22:40)
[2022-04-24] MEDS: SENNOSIDES 8.6 MG TABLET JT SCH (22:40)
[2022-04-25 00:02] VITALS: BP 116/77
[2022-04-25] MEDS: ALBUTEROL FS 2.5 MG/3 ML VIAL.NEB NEB SCH ×4 (01:44→12:40)
[2022-04-25] MEDS: IPRATROPIUM NEB FS 0.5 MG/2.5 ML AMPUL.NEB NEB SCH ×4 (01:44→12:40)
[2022-04-25] MEDS: ERYTHROMYCIN ETHYLSUCCINATE 200 MG/5 ML SUSPENSION JT SCH ×4 (05:44→23:23)
[2022-04-25] MEDS: BACLOFEN (10 MG) 10 MG TABLET JT SCH ×4 (05:44→23:23)
[2022-04-25] MEDS: SIMETHICONE SUSP 40 MG/0.6 ML BOTTLE JT SCH ×4 (05:45→23:23)
[2022-04-25] MEDS: METOCLOPRAMIDE HCL 10 MG/10 ML UDC JT SCH ×4 (05:45→23:23)
[2022-04-25 07:40] VITALS: BP 108/70
[2022-04-25] MEDS: HYDROGEN PEROXIDE 480 ML BOTTLE TP PRN (09:06)
[2022-04-25] MEDS: DOCUSATE SODIUM LIQ 100 MG/10 ML UDC JT SCH ×2 (09:29→17:00)
[2022-04-25] MEDS: FERROUS SULFATE - FOR SA ONLY 330 MG/7.5 ML UDC JT SCH (09:29)
[2022-04-25] MEDS: CITRIC ACID/SODIUM CITRATE (BICITRA)15 ML UDC JT SCH ×4 (09:29→20:38)
[2022-04-25] MEDS: LEVETIRACETAM SOL (5 ML) 100 MG/ML UDC JT SCH ×2 (09:29→20:38)
[2022-04-25] MEDS: CRANBERRY D MANNOSE JT SCH (09:29)
[2022-04-25] MEDS: HYDROCODONE/APAP 5/325MG TABLET JT SCH (09:31)
[2022-04-25] MEDS: [UNRECOGNIZED DRUG - REMARK] JT SCH (09:31)
[2022-04-25] MEDS: METOPROLOL TARTRATE 25 MG TABLET JT SCH ×2 (09:31→20:39)
[2022-04-25] MEDS: CHLORHEXIDINE GLUCONATE 15 ML UDC MM SCH ×2 (09:31→20:39)
[2022-04-25] MEDS: TOPIRAMATE 50 MG JT SCH ×2 (09:31→20:39)
[2022-04-25] MEDS: OMEPRAZOLE 20 MG CAPSULE.DR JT SCH ×2 (09:31→20:39)
[2022-04-25] MEDS: TIZANIDINE 2MG TABLET JT SCH ×2 (09:31→20:39)
[2022-04-25] MEDS: Z GUARD REMEDY 4 OZ OINT TP SCH ×4 (09:32→20:40)
[2022-04-25] MEDS: NEOMY SULF/BACITRAC ZN/POLY 15 GM TUBE TP SCH ×2 (09:32→20:40)
[2022-04-25] MEDS: HYDROGEN PEROXIDE 480 ML BOTTLE TP SCH ×2 (10:45→20:03)
[2022-04-25 14:29] VITALS: BP 116/76
[2022-04-25] MEDS: VITAL AF 1.2 1,000 ML BOTTLE GT PRN (18:31)
[2022-04-25 18:56] VITALS: BP 125/76
[2022-04-25] MEDS: BISACODYL SUPP (10 MG) 10 MG/SUPP.RECT SUPP.RECT RC PRN (19:47)
[2022-04-25] MEDS: SENNOSIDES 8.6 MG TABLET JT SCH (21:17)
[2022-04-25] MEDS: MULTIVIT W/MINERALS 1 TAB TABLET JT SCH (21:18)
[2022-04-26 00:21] VITALS: BP 118/65
[2022-04-26] MEDS: ALBUTEROL FS 2.5 MG/3 ML VIAL.NEB NEB SCH ×4 (01:48→19:05)
[2022-04-26] MEDS: IPRATROPIUM NEB FS 0.5 MG/2.5 ML AMPUL.NEB NEB SCH ×4 (01:48→19:05)
[2022-04-26] MEDS: ERYTHROMYCIN ETHYLSUCCINATE 200 MG/5 ML SUSPENSION JT SCH ×4 (05:30→23:07)
[2022-04-26] MEDS: METOCLOPRAMIDE HCL 10 MG/10 ML UDC JT SCH ×4 (05:31→23:08)
[2022-04-26] MEDS: SIMETHICONE SUSP 40 MG/0.6 ML BOTTLE JT SCH ×4 (05:31→23:08)
[2022-04-26] MEDS: BACLOFEN (10 MG) 10 MG TABLET JT SCH ×4 (05:31→23:07)
[2022-04-26 07:21] VITALS: BP 120/78
[2022-04-26] MEDS: HYDROGEN PEROXIDE 480 ML BOTTLE TP SCH ×2 (09:16→20:36)
[2022-04-26] MEDS: CITRIC ACID/SODIUM CITRATE (BICITRA)15 ML UDC JT SCH ×4 (09:36→20:40)
[2022-04-26] MEDS: DOCUSATE SODIUM LIQ 100 MG/10 ML UDC JT SCH ×2 (09:36→16:51)
[2022-04-26] MEDS: CRANBERRY D MANNOSE JT SCH (09:37)
[2022-04-26] MEDS: FERROUS SULFATE - FOR SA ONLY 330 MG/7.5 ML UDC JT SCH (09:37)
[2022-04-26] MEDS: LEVETIRACETAM SOL (5 ML) 100 MG/ML UDC JT SCH ×2 (09:37→20:40)
[2022-04-26] MEDS: [UNRECOGNIZED DRUG - REMARK] JT SCH (09:39)
[2022-04-26] MEDS: METOPROLOL TARTRATE 25 MG TABLET JT SCH ×2 (09:39→20:40)
[2022-04-26] MEDS: HYDROCODONE/APAP 5/325MG TABLET JT SCH (09:40)
[2022-04-26] MEDS: TOPIRAMATE 50 MG JT SCH ×2 (09:40→20:40)
[2022-04-26] MEDS: TIZANIDINE 2MG TABLET JT SCH ×2 (09:40→20:40)
[2022-04-26] MEDS: OMEPRAZOLE 20 MG CAPSULE.DR JT SCH ×2 (09:41→20:40)
[2022-04-26] MEDS: CHLORHEXIDINE GLUCONATE 15 ML UDC MM SCH ×2 (09:41→20:40)
[2022-04-26] MEDS: NEOMY SULF/BACITRAC ZN/POLY 15 GM TUBE TP SCH ×2 (09:42→20:40)
[2022-04-26] MEDS: Z GUARD REMEDY 4 OZ OINT TP SCH ×4 (09:42→20:41)
[2022-04-26 11:13] VITALS: BP 129/81
[2022-04-26] MEDS: POLYVINYL ALCOHOL 15 ML BOTTLE EACHEYE PRN (13:34)
[2022-04-26] MEDS: VITAL AF 1.2 1,000 ML BOTTLE GT PRN (14:43)
[2022-04-26 19:18] VITALS: BP 116/96
[2022-04-26] MEDS: SENNOSIDES 8.6 MG TABLET JT SCH (21:05)
[2022-04-26] MEDS: MULTIVIT W/MINERALS 1 TAB TABLET JT SCH (21:05)
[2022-04-27] MEDS: ALBUTEROL FS 2.5 MG/3 ML VIAL.NEB NEB SCH ×4 (00:45→20:06)
[2022-04-27] MEDS: IPRATROPIUM NEB FS 0.5 MG/2.5 ML AMPUL.NEB NEB SCH ×4 (00:45→20:06)
[2022-04-27 00:48] VITALS: BP 120/85
[2022-04-27] MEDS: SIMETHICONE SUSP 40 MG/0.6 ML BOTTLE JT SCH ×4 (05:07→23:21)
[2022-04-27] MEDS: METOCLOPRAMIDE HCL 10 MG/10 ML UDC JT SCH ×4 (05:07→23:21)
[2022-04-27] MEDS: ERYTHROMYCIN ETHYLSUCCINATE 200 MG/5 ML SUSPENSION JT SCH ×4 (05:07→23:21)
[2022-04-27] MEDS: BACLOFEN (10 MG) 10 MG TABLET JT SCH ×4 (05:07→23:21)
[2022-04-27 07:52] VITALS: BP 128/92
[2022-04-27] MEDS: HYDROGEN PEROXIDE 480 ML BOTTLE TP SCH ×2 (09:27→20:06)
[2022-04-27] MEDS: [UNRECOGNIZED DRUG - REMARK] JT SCH (09:28)
[2022-04-27] MEDS: FERROUS SULFATE - FOR SA ONLY 330 MG/7.5 ML UDC JT SCH (09:28)
[2022-04-27] MEDS: DOCUSATE SODIUM LIQ 100 MG/10 ML UDC JT SCH ×2 (09:28→16:51)
[2022-04-27] MEDS: LEVETIRACETAM SOL (5 ML) 100 MG/ML UDC JT SCH ×2 (09:28→20:38)
[2022-04-27] MEDS: CRANBERRY D MANNOSE JT SCH (09:29)
[2022-04-27] MEDS: METOPROLOL TARTRATE 25 MG TABLET JT SCH ×2 (09:30→20:38)
[2022-04-27] MEDS: TIZANIDINE 2MG TABLET JT SCH ×2 (09:30→20:38)
[2022-04-27] MEDS: TOPIRAMATE 50 MG JT SCH ×2 (09:31→20:39)
[2022-04-27] MEDS: OMEPRAZOLE 20 MG CAPSULE.DR JT SCH ×2 (09:32→20:39)
[2022-04-27] MEDS: HYDROCODONE/APAP 5/325MG TABLET JT SCH (09:32)
[2022-04-27] MEDS: NEOMY SULF/BACITRAC ZN/POLY 15 GM TUBE TP SCH ×2 (09:33→20:39)
[2022-04-27] MEDS: CHLORHEXIDINE GLUCONATE 15 ML UDC MM SCH ×2 (09:33→20:39)
[2022-04-27] MEDS: Z GUARD REMEDY 4 OZ OINT TP SCH ×4 (09:33→20:40)
[2022-04-27] MEDS: CITRIC ACID/SODIUM CITRATE (BICITRA)15 ML UDC JT SCH ×4 (09:34→20:38)
[2022-04-27] MEDS: VITAL AF 1.2 1,000 ML BOTTLE GT PRN (18:06)
[2022-04-27 18:58] VITALS: BP 125/83
[2022-04-27] MEDS: MULTIVIT W/MINERALS 1 TAB TABLET JT SCH (21:05)
[2022-04-27] MEDS: SENNOSIDES 8.6 MG TABLET JT SCH (21:05)
[2022-04-27 23:38] VITALS: BP 120/72
[2022-04-28] MEDS: ALBUTEROL FS 2.5 MG/3 ML VIAL.NEB NEB SCH ×4 (01:49→20:00)
[2022-04-28] MEDS: IPRATROPIUM NEB FS 0.5 MG/2.5 ML AMPUL.NEB NEB SCH ×4 (01:49→20:00)
[2022-04-28] MEDS: BACLOFEN (10 MG) 10 MG TABLET JT SCH ×4 (05:27→23:57)
[2022-04-28] MEDS: SIMETHICONE SUSP 40 MG/0.6 ML BOTTLE JT SCH ×4 (05:27→23:57)
[2022-04-28] MEDS: METOCLOPRAMIDE HCL 10 MG/10 ML UDC JT SCH ×4 (05:27→23:57)
[2022-04-28] MEDS: ERYTHROMYCIN ETHYLSUCCINATE 200 MG/5 ML SUSPENSION JT SCH ×4 (05:27→23:57)
[2022-04-28 08:05] VITALS: BP 123/95
[2022-04-28] MEDS: HYDROGEN PEROXIDE 480 ML BOTTLE TP SCH ×2 (08:28→20:00)
[2022-04-28] MEDS: NEOMY SULF/BACITRAC ZN/POLY 15 GM TUBE TP SCH ×2 (09:00→20:53)
[2022-04-28] MEDS: LEVETIRACETAM SOL (5 ML) 100 MG/ML UDC JT SCH ×2 (09:00→20:52)
[2022-04-28] MEDS: HYDROCODONE/APAP 5/325MG TABLET JT SCH (09:00)
[2022-04-28] MEDS: CHLORHEXIDINE GLUCONATE 15 ML UDC MM SCH ×2 (09:00→20:53)
[2022-04-28] MEDS: FERROUS SULFATE - FOR SA ONLY 330 MG/7.5 ML UDC JT SCH (09:00)
[2022-04-28] MEDS: CITRIC ACID/SODIUM CITRATE (BICITRA)15 ML UDC JT SCH ×4 (09:00→20:52)
[2022-04-28] MEDS: DOCUSATE SODIUM LIQ 100 MG/10 ML UDC JT SCH ×2 (09:00→17:29)
[2022-04-28] MEDS: Z GUARD REMEDY 4 OZ OINT TP SCH ×4 (09:00→20:53)
[2022-04-28] MEDS: [UNRECOGNIZED DRUG - REMARK] JT SCH (09:00)
[2022-04-28] MEDS: TIZANIDINE 2MG TABLET JT SCH ×2 (09:00→20:53)
[2022-04-28] MEDS: CRANBERRY D MANNOSE JT SCH (09:00)
[2022-04-28] MEDS: TOPIRAMATE 50 MG JT SCH ×2 (09:00→20:53)
[2022-04-28] MEDS: OMEPRAZOLE 20 MG CAPSULE.DR JT SCH ×2 (09:00→20:53)
[2022-04-28] MEDS: METOPROLOL TARTRATE 25 MG TABLET JT SCH ×2 (09:00→20:53)
[2022-04-28 13:03] VITALS: BP 128/86
[2022-04-28] MEDS: VITAL AF 1.2 1,000 ML BOTTLE GT PRN (18:54)
[2022-04-28 19:18] VITALS: BP 126/80
[2022-04-28] MEDS: MULTIVIT W/MINERALS 1 TAB TABLET JT SCH (21:48)
[2022-04-28] MEDS: SENNOSIDES 8.6 MG TABLET JT SCH (21:48)
[2022-04-29] MEDS: ALBUTEROL FS 2.5 MG/3 ML VIAL.NEB NEB SCH ×4 (01:49→19:46)
[2022-04-29] MEDS: IPRATROPIUM NEB FS 0.5 MG/2.5 ML AMPUL.NEB NEB SCH ×4 (01:49→19:46)
[2022-04-29] MEDS: BACLOFEN (10 MG) 10 MG TABLET JT SCH ×3 (05:40→18:36)
[2022-04-29] MEDS: SIMETHICONE SUSP 40 MG/0.6 ML BOTTLE JT SCH ×3 (05:40→18:36)
[2022-04-29] MEDS: METOCLOPRAMIDE HCL 10 MG/10 ML UDC JT SCH ×3 (05:40→18:37)
[2022-04-29] MEDS: ERYTHROMYCIN ETHYLSUCCINATE 200 MG/5 ML SUSPENSION JT SCH ×3 (05:40→18:36)
[2022-04-29 07:56] VITALS: BP 109/69
[2022-04-29] MEDS: HYDROGEN PEROXIDE 480 ML BOTTLE TP SCH ×2 (07:58→19:47)
[2022-04-29] MEDS: METOPROLOL TARTRATE 25 MG TABLET JT SCH ×2 (09:00→20:59)
[2022-04-29] MEDS: CRANBERRY D MANNOSE JT SCH (09:47)
[2022-04-29] MEDS: CITRIC ACID/SODIUM CITRATE (BICITRA)15 ML UDC JT SCH ×4 (09:47→20:58)
[2022-04-29] MEDS: LEVETIRACETAM SOL (5 ML) 100 MG/ML UDC JT SCH ×2 (09:47→20:58)
[2022-04-29] MEDS: DOCUSATE SODIUM LIQ 100 MG/10 ML UDC JT SCH ×2 (09:47→17:32)
[2022-04-29] MEDS: FERROUS SULFATE - FOR SA ONLY 330 MG/7.5 ML UDC JT SCH (09:47)
[2022-04-29] MEDS: TOPIRAMATE 50 MG JT SCH ×2 (09:48→20:59)
[2022-04-29] MEDS: OMEPRAZOLE 20 MG CAPSULE.DR JT SCH ×2 (09:48→20:59)
[2022-04-29] MEDS: CHLORHEXIDINE GLUCONATE 15 ML UDC MM SCH ×2 (09:48→21:00)
[2022-04-29] MEDS: TIZANIDINE 2MG TABLET JT SCH ×2 (09:48→20:59)
[2022-04-29] MEDS: Z GUARD REMEDY 4 OZ OINT TP SCH ×4 (09:48→21:00)
[2022-04-29] MEDS: HYDROCODONE/APAP 5/325MG TABLET JT SCH (09:48)
[2022-04-29] MEDS: [UNRECOGNIZED DRUG - REMARK] JT SCH (09:48)
[2022-04-29] MEDS: NEOMY SULF/BACITRAC ZN/POLY 15 GM TUBE TP SCH ×2 (09:48→21:00)
[2022-04-29 12:07] VITALS: BP 139/69
[2022-04-29] MEDS: VITAL AF 1.2 1,000 ML BOTTLE GT PRN (18:57)
[2022-04-29 20:24] VITALS: BP 125/85
[2022-04-29] MEDS: MULTIVIT W/MINERALS 1 TAB TABLET JT SCH (21:00)
[2022-04-29] MEDS: SENNOSIDES 8.6 MG TABLET JT SCH (21:00)
[2022-04-30] MEDS: SIMETHICONE SUSP 40 MG/0.6 ML BOTTLE JT SCH ×4 (00:26→17:24)
[2022-04-30] MEDS: METOCLOPRAMIDE HCL 10 MG/10 ML UDC JT SCH ×4 (00:26→17:24)
[2022-04-30] MEDS: BACLOFEN (10 MG) 10 MG TABLET JT SCH ×4 (00:26→17:22)
[2022-04-30] MEDS: ERYTHROMYCIN ETHYLSUCCINATE 200 MG/5 ML SUSPENSION JT SCH ×4 (00:26→17:21)
[2022-04-30] MEDS: ALBUTEROL FS 2.5 MG/3 ML VIAL.NEB NEB SCH ×4 (01:44→19:51)
[2022-04-30] MEDS: IPRATROPIUM NEB FS 0.5 MG/2.5 ML AMPUL.NEB NEB SCH ×4 (01:44→19:51)
[2022-04-30 07:42] VITALS: BP 110/67
[2022-04-30] MEDS: HYDROGEN PEROXIDE 480 ML BOTTLE TP SCH ×2 (08:53→21:00)
[2022-04-30] MEDS: FERROUS SULFATE - FOR SA ONLY 330 MG/7.5 ML UDC JT SCH (09:00)
[2022-04-30] MEDS: DOCUSATE SODIUM LIQ 100 MG/10 ML UDC JT SCH ×2 (09:01→17:23)
[2022-04-30] MEDS: CRANBERRY D MANNOSE JT SCH (09:02)
[2022-04-30] MEDS: LEVETIRACETAM SOL (5 ML) 100 MG/ML UDC JT SCH ×2 (09:03→20:41)
[2022-04-30] MEDS: METOPROLOL TARTRATE 25 MG TABLET JT SCH ×2 (09:04→20:42)
[2022-04-30] MEDS: TIZANIDINE 2MG TABLET JT SCH ×2 (09:05→20:42)
[2022-04-30] MEDS: TOPIRAMATE 50 MG JT SCH ×2 (09:05→20:42)
[2022-04-30] MEDS: CHLORHEXIDINE GLUCONATE 15 ML UDC MM SCH ×2 (09:06→20:42)
[2022-04-30] MEDS: NEOMY SULF/BACITRAC ZN/POLY 15 GM TUBE TP SCH ×2 (09:06→20:42)
[2022-04-30] MEDS: OMEPRAZOLE 20 MG CAPSULE.DR JT SCH ×2 (09:06→20:42)
[2022-04-30] MEDS: Z GUARD REMEDY 4 OZ OINT TP SCH ×4 (09:06→20:43)
[2022-04-30] MEDS: HYDROCODONE/APAP 5/325MG TABLET JT SCH (09:08)
[2022-04-30] MEDS: [UNRECOGNIZED DRUG - REMARK] JT SCH (09:09)
[2022-04-30] MEDS: CITRIC ACID/SODIUM CITRATE (BICITRA)15 ML UDC JT SCH ×4 (09:11→20:41)
[2022-04-30 11:35] VITALS: BP 116/69
[2022-04-30] MEDS: VITAL AF 1.2 1,000 ML BOTTLE GT PRN (17:21)
[2022-04-30 20:00] VITALS: BP 121/61
[2022-04-30] MEDS: SENNOSIDES 8.6 MG TABLET JT SCH (21:13)
[2022-04-30] MEDS: MULTIVIT W/MINERALS 1 TAB TABLET JT SCH (21:13)
[2022-05-01] MEDS: SIMETHICONE SUSP 40 MG/0.6 ML BOTTLE JT SCH ×4 (00:50→18:10)
[2022-05-01] MEDS: BACLOFEN (10 MG) 10 MG TABLET JT SCH ×4 (00:50→18:10)
[2022-05-01] MEDS: ERYTHROMYCIN ETHYLSUCCINATE 200 MG/5 ML SUSPENSION JT SCH ×4 (00:50→18:10)
[2022-05-01] MEDS: METOCLOPRAMIDE HCL 10 MG/10 ML UDC JT SCH ×4 (00:50→18:10)
[2022-05-01] MEDS: ALBUTEROL FS 2.5 MG/3 ML VIAL.NEB NEB SCH ×4 (02:19→20:15)
[2022-05-01] MEDS: IPRATROPIUM NEB FS 0.5 MG/2.5 ML AMPUL.NEB NEB SCH ×4 (02:19→20:15)
[2022-05-01 07:36] VITALS: BP 111/69
[2022-05-01] MEDS: METOPROLOL TARTRATE 25 MG TABLET JT SCH ×2 (09:00→21:43)
[2022-05-01] MEDS: [UNRECOGNIZED DRUG - REMARK] JT SCH (09:00)
[2022-05-01] MEDS: TOPIRAMATE 50 MG JT SCH ×2 (09:00→21:43)
[2022-05-01] MEDS: CRANBERRY D MANNOSE JT SCH (09:00)
[2022-05-01] MEDS: OMEPRAZOLE 20 MG CAPSULE.DR JT SCH ×2 (09:00→21:43)
[2022-05-01] MEDS: CITRIC ACID/SODIUM CITRATE (BICITRA)15 ML UDC JT SCH ×4 (09:00→21:42)
[2022-05-01] MEDS: NEOMY SULF/BACITRAC ZN/POLY 15 GM TUBE TP SCH ×2 (09:00→21:43)
[2022-05-01] MEDS: FERROUS SULFATE - FOR SA ONLY 330 MG/7.5 ML UDC JT SCH (09:00)
[2022-05-01] MEDS: DOCUSATE SODIUM LIQ 100 MG/10 ML UDC JT SCH ×2 (09:00→17:34)
[2022-05-01] MEDS: TIZANIDINE 2MG TABLET JT SCH ×2 (09:00→21:43)
[2022-05-01] MEDS: CHLORHEXIDINE GLUCONATE 15 ML UDC MM SCH ×2 (09:00→21:43)
[2022-05-01] MEDS: Z GUARD REMEDY 4 OZ OINT TP SCH ×4 (09:00→21:43)
[2022-05-01] MEDS: LEVETIRACETAM SOL (5 ML) 100 MG/ML UDC JT SCH ×2 (09:00→21:42)
[2022-05-01] MEDS: HYDROCODONE/APAP 5/325MG TABLET JT SCH (09:00)
[2022-05-01] MEDS: HYDROGEN PEROXIDE 480 ML BOTTLE TP SCH ×2 (09:33→20:15)
[2022-05-01 11:51] VITALS: BP 106/72
[2022-05-01] MEDS: VITAL AF 1.2 1,000 ML BOTTLE GT PRN (18:49)
[2022-05-01 20:00] VITALS: BP 127/61
[2022-05-01] MEDS: SENNOSIDES 8.6 MG TABLET JT SCH (21:43)
[2022-05-01] MEDS: MULTIVIT W/MINERALS 1 TAB TABLET JT SCH (21:43)
[2022-05-02] MEDS: BACLOFEN (10 MG) 10 MG TABLET JT SCH ×5 (00:27→23:58)
[2022-05-02] MEDS: ERYTHROMYCIN ETHYLSUCCINATE 200 MG/5 ML SUSPENSION JT SCH ×5 (00:27→23:58)
[2022-05-02] MEDS: SIMETHICONE SUSP 40 MG/0.6 ML BOTTLE JT SCH ×5 (00:27→23:58)
[2022-05-02] MEDS: METOCLOPRAMIDE HCL 10 MG/10 ML UDC JT SCH ×5 (00:27→23:58)
[2022-05-02] MEDS: ALBUTEROL FS 2.5 MG/3 ML VIAL.NEB NEB SCH ×4 (02:11→19:55)
[2022-05-02] MEDS: IPRATROPIUM NEB FS 0.5 MG/2.5 ML AMPUL.NEB NEB SCH ×4 (02:11→19:55)
[2022-05-02 08:00] VITALS: BP 113/76
[2022-05-02] MEDS: CITRIC ACID/SODIUM CITRATE (BICITRA)15 ML UDC JT SCH ×4 (08:59→21:42)
[2022-05-02] MEDS: CRANBERRY D MANNOSE JT SCH (08:59)
[2022-05-02] MEDS: DOCUSATE SODIUM LIQ 100 MG/10 ML UDC JT SCH ×2 (08:59→16:55)
[2022-05-02] MEDS: FERROUS SULFATE - FOR SA ONLY 330 MG/7.5 ML UDC JT SCH (08:59)
[2022-05-02] MEDS: [UNRECOGNIZED DRUG - REMARK] JT SCH (09:00)
[2022-05-02] MEDS: TIZANIDINE 2MG TABLET JT SCH ×2 (09:00→21:43)
[2022-05-02] MEDS: CHLORHEXIDINE GLUCONATE 15 ML UDC MM SCH ×2 (09:00→21:43)
[2022-05-02] MEDS: TOPIRAMATE 50 MG JT SCH ×2 (09:00→21:43)
[2022-05-02] MEDS: HYDROCODONE/APAP 5/325MG TABLET JT SCH (09:00)
[2022-05-02] MEDS: METOPROLOL TARTRATE 25 MG TABLET JT SCH ×2 (09:00→21:43)
[2022-05-02] MEDS: OMEPRAZOLE 20 MG CAPSULE.DR JT SCH ×2 (09:00→21:43)
[2022-05-02] MEDS: LEVETIRACETAM SOL (5 ML) 100 MG/ML UDC JT SCH ×2 (09:00→21:42)
[2022-05-02] MEDS: Z GUARD REMEDY 4 OZ OINT TP SCH ×4 (09:01→21:43)
[2022-05-02] MEDS: NEOMY SULF/BACITRAC ZN/POLY 15 GM TUBE TP SCH (09:01)
[2022-05-02] MEDS: HYDROGEN PEROXIDE 480 ML BOTTLE TP SCH ×2 (09:14→19:55)
[2022-05-02 12:00] VITALS: BP 118/96
[2022-05-02] MEDS: ACETAMINOPHEN 650 MG/20 ML UDC- SA PATIENTS-PAIN ONLY JT PRN (16:01)
[2022-05-02] MEDS: VITAL AF 1.2 1,000 ML BOTTLE GT PRN (17:08)
[2022-05-02 19:31] VITALS: BP 126/87
[2022-05-02] MEDS: SENNOSIDES 8.6 MG TABLET JT SCH (21:43)
[2022-05-02] MEDS: MULTIVIT W/MINERALS 1 TAB TABLET JT SCH (21:43)
[2022-05-03 00:24] VITALS: BP 112/74
[2022-05-03] MEDS: IPRATROPIUM NEB FS 0.5 MG/2.5 ML AMPUL.NEB NEB SCH ×4 (01:45→20:29)
[2022-05-03] MEDS: ALBUTEROL FS 2.5 MG/3 ML VIAL.NEB NEB SCH ×4 (01:45→20:29)
[2022-05-03] MEDS: ERYTHROMYCIN ETHYLSUCCINATE 200 MG/5 ML SUSPENSION JT SCH ×3 (06:01→17:20)
[2022-05-03] MEDS: METOCLOPRAMIDE HCL 10 MG/10 ML UDC JT SCH ×3 (06:01→17:20)
[2022-05-03] MEDS: BACLOFEN (10 MG) 10 MG TABLET JT SCH ×3 (06:01→17:20)
[2022-05-03] MEDS: SIMETHICONE SUSP 40 MG/0.6 ML BOTTLE JT SCH ×3 (06:01→17:20)
[2022-05-03] MEDS: HYDROGEN PEROXIDE 480 ML BOTTLE TP SCH ×2 (09:00→20:29)
[2022-05-03] MEDS: DOCUSATE SODIUM LIQ 100 MG/10 ML UDC JT SCH ×2 (09:56→17:20)
[2022-05-03] MEDS: Z GUARD REMEDY 4 OZ OINT TP SCH ×4 (09:56→21:44)
[2022-05-03] MEDS: CHLORHEXIDINE GLUCONATE 15 ML UDC MM SCH ×2 (09:56→21:44)
[2022-05-03] MEDS: TIZANIDINE 2MG TABLET JT SCH ×2 (09:56→21:35)
[2022-05-03] MEDS: [UNRECOGNIZED DRUG - REMARK] JT SCH (09:56)
[2022-05-03] MEDS: TOPIRAMATE 50 MG JT SCH ×2 (09:56→21:35)
[2022-05-03] MEDS: FERROUS SULFATE - FOR SA ONLY 330 MG/7.5 ML UDC JT SCH (09:56)
[2022-05-03] MEDS: CRANBERRY D MANNOSE JT SCH (09:56)
[2022-05-03] MEDS: HYDROCODONE/APAP 5/325MG TABLET JT SCH (09:56)
[2022-05-03] MEDS: OMEPRAZOLE 20 MG CAPSULE.DR JT SCH ×2 (09:56→21:44)
[2022-05-03] MEDS: METOPROLOL TARTRATE 25 MG TABLET JT SCH ×2 (09:56→21:34)
[2022-05-03] MEDS: LEVETIRACETAM SOL (5 ML) 100 MG/ML UDC JT SCH ×2 (09:56→21:34)
[2022-05-03] MEDS: CITRIC ACID/SODIUM CITRATE (BICITRA)15 ML UDC JT SCH ×4 (09:57→21:34)
[2022-05-03] MEDS: VITAL AF 1.2 1,000 ML BOTTLE GT PRN (13:15)
[2022-05-03 20:21] VITALS: BP 128/75
[2022-05-03] MEDS: MULTIVIT W/MINERALS 1 TAB TABLET JT SCH (21:44)
[2022-05-03] MEDS: SENNOSIDES 8.6 MG TABLET JT SCH (21:44)
[2022-05-04] MEDS: SIMETHICONE SUSP 40 MG/0.6 ML BOTTLE JT SCH ×5 (00:11→23:39)
[2022-05-04] MEDS: METOCLOPRAMIDE HCL 10 MG/10 ML UDC JT SCH ×5 (00:11→23:39)
[2022-05-04] MEDS: ERYTHROMYCIN ETHYLSUCCINATE 200 MG/5 ML SUSPENSION JT SCH ×5 (00:11→23:39)
[2022-05-04] MEDS: BACLOFEN (10 MG) 10 MG TABLET JT SCH ×5 (00:11→23:39)
[2022-05-04 01:05] VITALS: BP 122/75
[2022-05-04] MEDS: IPRATROPIUM NEB FS 0.5 MG/2.5 ML AMPUL.NEB NEB SCH ×4 (02:01→18:59)
[2022-05-04] MEDS: ALBUTEROL FS 2.5 MG/3 ML VIAL.NEB NEB SCH ×4 (02:01→18:59)
[2022-05-04 08:00] VITALS: BP 103/75
[2022-05-04] MEDS: HYDROGEN PEROXIDE 480 ML BOTTLE TP SCH ×2 (09:00→21:16)
[2022-05-04] MEDS: CITRIC ACID/SODIUM CITRATE (BICITRA)15 ML UDC JT SCH ×4 (09:40→20:44)
[2022-05-04] MEDS: DOCUSATE SODIUM LIQ 100 MG/10 ML UDC JT SCH ×2 (09:40→17:01)
[2022-05-04] MEDS: LEVETIRACETAM SOL (5 ML) 100 MG/ML UDC JT SCH ×2 (09:40→20:44)
[2022-05-04] MEDS: FERROUS SULFATE - FOR SA ONLY 330 MG/7.5 ML UDC JT SCH (09:40)
[2022-05-04] MEDS: CRANBERRY D MANNOSE JT SCH (09:40)
[2022-05-04] MEDS: [UNRECOGNIZED DRUG - REMARK] JT SCH (09:42)
[2022-05-04] MEDS: TOPIRAMATE 50 MG JT SCH ×2 (09:42→20:45)
[2022-05-04] MEDS: TIZANIDINE 2MG TABLET JT SCH ×2 (09:42→20:45)
[2022-05-04] MEDS: CHLORHEXIDINE GLUCONATE 15 ML UDC MM SCH ×2 (09:43→20:45)
[2022-05-04] MEDS: Z GUARD REMEDY 4 OZ OINT TP SCH ×4 (09:43→20:45)
[2022-05-04] MEDS: OMEPRAZOLE 20 MG CAPSULE.DR JT SCH ×2 (09:43→20:45)
[2022-05-04] MEDS: HYDROCODONE/APAP 5/325MG TABLET JT SCH (09:43)
[2022-05-04] MEDS: METOPROLOL TARTRATE 25 MG TABLET JT SCH ×2 (09:48→20:45)
[2022-05-04 12:30] VITALS: BP 126/76
[2022-05-04] MEDS: VITAL AF 1.2 1,000 ML BOTTLE GT PRN (17:16)
[2022-05-04 19:59] VITALS: BP 122/85
[2022-05-04] MEDS: ACETAMINOPHEN 650 MG/20 ML UDC- SA PATIENTS-PAIN ONLY JT PRN (20:46)
[2022-05-04] MEDS: MULTIVIT W/MINERALS 1 TAB TABLET JT SCH (22:20)
[2022-05-04] MEDS: SENNOSIDES 8.6 MG TABLET JT SCH (22:20)
[2022-05-05] MEDS: IPRATROPIUM NEB FS 0.5 MG/2.5 ML AMPUL.NEB NEB SCH ×4 (01:11→19:16)
[2022-05-05] MEDS: ALBUTEROL FS 2.5 MG/3 ML VIAL.NEB NEB SCH ×4 (01:11→19:16)
[2022-05-05] MEDS: METOCLOPRAMIDE HCL 10 MG/10 ML UDC JT SCH ×3 (05:47→17:00)
[2022-05-05] MEDS: ERYTHROMYCIN ETHYLSUCCINATE 200 MG/5 ML SUSPENSION JT SCH ×3 (05:47→17:00)
[2022-05-05] MEDS: SIMETHICONE SUSP 40 MG/0.6 ML BOTTLE JT SCH ×3 (05:47→17:00)
[2022-05-05] MEDS: BACLOFEN (10 MG) 10 MG TABLET JT SCH ×3 (05:47→17:00)
[2022-05-05] MEDS: HYDROGEN PEROXIDE 480 ML BOTTLE TP SCH ×2 (08:11→21:22)
[2022-05-05] MEDS: DOCUSATE SODIUM LIQ 100 MG/10 ML UDC JT SCH ×2 (09:33→16:37)
[2022-05-05] MEDS: CITRIC ACID/SODIUM CITRATE (BICITRA)15 ML UDC JT SCH ×4 (09:33→20:12)
[2022-05-05] MEDS: FERROUS SULFATE - FOR SA ONLY 330 MG/7.5 ML UDC JT SCH (09:33)
[2022-05-05] MEDS: LEVETIRACETAM SOL (5 ML) 100 MG/ML UDC JT SCH ×2 (09:34→20:46)
[2022-05-05] MEDS: CRANBERRY D MANNOSE JT SCH (09:34)
[2022-05-05] MEDS: METOPROLOL TARTRATE 25 MG TABLET JT SCH ×2 (09:35→20:47)
[2022-05-05] MEDS: TIZANIDINE 2MG TABLET JT SCH ×2 (09:36→20:47)
[2022-05-05] MEDS: TOPIRAMATE 50 MG JT SCH ×2 (09:36→20:47)
[2022-05-05] MEDS: [UNRECOGNIZED DRUG - REMARK] JT SCH (09:36)
[2022-05-05] MEDS: HYDROCODONE/APAP 5/325MG TABLET JT SCH (09:38)
[2022-05-05] MEDS: OMEPRAZOLE 20 MG CAPSULE.DR JT SCH ×2 (09:38→20:47)
[2022-05-05] MEDS: CHLORHEXIDINE GLUCONATE 15 ML UDC MM SCH ×2 (09:38→20:47)
[2022-05-05] MEDS: NEOMY SULF/BACITRAC ZN/POLY 15 GM TUBE TP SCH ×2 (09:38→20:47)
[2022-05-05] MEDS: Z GUARD REMEDY 4 OZ OINT TP SCH ×3 (09:38→20:47)
[2022-05-05 10:00] VITALS: BP 120/80
[2022-05-05 11:37] VITALS: BP 122/92
[2022-05-05] MEDS: VITAL AF 1.2 1,000 ML BOTTLE GT PRN (17:55)
[2022-05-05 19:59] VITALS: BP 133/88
[2022-05-05] MEDS: SENNOSIDES 8.6 MG TABLET JT SCH (22:11)
[2022-05-05] MEDS: MULTIVIT W/MINERALS 1 TAB TABLET JT SCH (22:11)
[2022-05-06] MEDS: ERYTHROMYCIN ETHYLSUCCINATE 200 MG/5 ML SUSPENSION JT SCH ×4 (00:17→18:32)
[2022-05-06] MEDS: METOCLOPRAMIDE HCL 10 MG/10 ML UDC JT SCH ×4 (00:17→18:32)
[2022-05-06] MEDS: BACLOFEN (10 MG) 10 MG TABLET JT SCH ×4 (00:17→18:32)
[2022-05-06] MEDS: SIMETHICONE SUSP 40 MG/0.6 ML BOTTLE JT SCH ×4 (00:17→18:32)
[2022-05-06] MEDS: ALBUTEROL FS 2.5 MG/3 ML VIAL.NEB NEB SCH ×4 (01:09→20:21)
[2022-05-06] MEDS: IPRATROPIUM NEB FS 0.5 MG/2.5 ML AMPUL.NEB NEB SCH ×4 (01:09→20:21)
[2022-05-06 07:57] VITALS: BP 124/75
[2022-05-06] MEDS: NEOMY SULF/BACITRAC ZN/POLY 15 GM TUBE TP SCH ×2 (09:00→21:26)
[2022-05-06] MEDS: [UNRECOGNIZED DRUG - REMARK] JT SCH (09:00)
[2022-05-06] MEDS: TIZANIDINE 2MG TABLET JT SCH ×2 (09:00→21:26)
[2022-05-06] MEDS: HYDROCODONE/APAP 5/325MG TABLET JT SCH (09:00)
[2022-05-06] MEDS: CRANBERRY D MANNOSE JT SCH (09:00)
[2022-05-06] MEDS: OMEPRAZOLE 20 MG CAPSULE.DR JT SCH ×2 (09:00→21:26)
[2022-05-06] MEDS: FERROUS SULFATE - FOR SA ONLY 330 MG/7.5 ML UDC JT SCH (09:00)
[2022-05-06] MEDS: CITRIC ACID/SODIUM CITRATE (BICITRA)15 ML UDC JT SCH ×4 (09:00→20:32)
[2022-05-06] MEDS: METOPROLOL TARTRATE 25 MG TABLET JT SCH ×2 (09:00→21:26)
[2022-05-06] MEDS: LEVETIRACETAM SOL (5 ML) 100 MG/ML UDC JT SCH ×2 (09:00→21:25)
[2022-05-06] MEDS: CHLORHEXIDINE GLUCONATE 15 ML UDC MM SCH ×2 (09:00→21:26)
[2022-05-06] MEDS: DOCUSATE SODIUM LIQ 100 MG/10 ML UDC JT SCH ×2 (09:00→17:02)
[2022-05-06] MEDS: TOPIRAMATE 50 MG JT SCH ×2 (09:00→21:26)
[2022-05-06] MEDS: Z GUARD REMEDY 4 OZ OINT TP SCH ×2 (09:00→21:26)
[2022-05-06] MEDS: HYDROGEN PEROXIDE 480 ML BOTTLE TP SCH ×2 (10:49→20:21)
[2022-05-06 12:42] VITALS: BP 139/82
[2022-05-06] MEDS: VITAL AF 1.2 1,000 ML BOTTLE GT PRN (16:40)
[2022-05-06 19:51] VITALS: BP 125/85
[2022-05-06] MEDS: MULTIVIT W/MINERALS 1 TAB TABLET JT SCH (21:26)
[2022-05-06] MEDS: SENNOSIDES 8.6 MG TABLET JT SCH (21:26)
[2022-05-07] MEDS: METOCLOPRAMIDE HCL 10 MG/10 ML UDC JT SCH ×5 (00:04→23:40)
[2022-05-07] MEDS: ERYTHROMYCIN ETHYLSUCCINATE 200 MG/5 ML SUSPENSION JT SCH ×5 (00:04→23:40)
[2022-05-07] MEDS: BACLOFEN (10 MG) 10 MG TABLET JT SCH ×5 (00:04→23:40)
[2022-05-07] MEDS: SIMETHICONE SUSP 40 MG/0.6 ML BOTTLE JT SCH ×5 (00:04→23:40)
[2022-05-07] MEDS: IPRATROPIUM NEB FS 0.5 MG/2.5 ML AMPUL.NEB NEB SCH ×4 (02:13→20:25)
[2022-05-07] MEDS: ALBUTEROL FS 2.5 MG/3 ML VIAL.NEB NEB SCH ×4 (02:13→20:25)
[2022-05-07 07:32] VITALS: BP 125/78
[2022-05-07] MEDS: HYDROGEN PEROXIDE 480 ML BOTTLE TP SCH ×2 (08:26→20:25)
[2022-05-07] MEDS: [UNRECOGNIZED DRUG - REMARK] JT SCH (09:00)
[2022-05-07] MEDS: METOPROLOL TARTRATE 25 MG TABLET JT SCH ×2 (09:00→20:40)
[2022-05-07] MEDS: LEVETIRACETAM SOL (5 ML) 100 MG/ML UDC JT SCH ×2 (09:00→20:38)
[2022-05-07] MEDS: CITRIC ACID/SODIUM CITRATE (BICITRA)15 ML UDC JT SCH ×4 (09:00→20:38)
[2022-05-07] MEDS: TIZANIDINE 2MG TABLET JT SCH ×2 (09:00→20:41)
[2022-05-07] MEDS: CRANBERRY D MANNOSE JT SCH (09:00)
[2022-05-07] MEDS: DOCUSATE SODIUM LIQ 100 MG/10 ML UDC JT SCH ×2 (09:00→17:00)
[2022-05-07] MEDS: TOPIRAMATE 50 MG JT SCH ×2 (09:00→20:41)
[2022-05-07] MEDS: FERROUS SULFATE - FOR SA ONLY 330 MG/7.5 ML UDC JT SCH (09:00)
[2022-05-07] MEDS: Z GUARD REMEDY 4 OZ OINT TP SCH ×2 (09:00→20:41)
[2022-05-07] MEDS: NEOMY SULF/BACITRAC ZN/POLY 15 GM TUBE TP SCH ×2 (09:00→20:41)
[2022-05-07] MEDS: OMEPRAZOLE 20 MG CAPSULE.DR JT SCH ×2 (09:00→20:41)
[2022-05-07] MEDS: CHLORHEXIDINE GLUCONATE 15 ML UDC MM SCH ×2 (09:00→20:41)
[2022-05-07] MEDS: HYDROCODONE/APAP 5/325MG TABLET JT SCH (09:00)
[2022-05-07 11:59] VITALS: BP 136/76
[2022-05-07] MEDS: VITAL AF 1.2 1,000 ML BOTTLE GT PRN (16:41)
[2022-05-07 20:15] VITALS: BP 125/84
[2022-05-07] MEDS: SENNOSIDES 8.6 MG TABLET JT SCH (21:52)
[2022-05-07] MEDS: MULTIVIT W/MINERALS 1 TAB TABLET JT SCH (22:31)
[2022-05-08] MEDS: ALBUTEROL FS 2.5 MG/3 ML VIAL.NEB NEB SCH ×4 (01:54→20:10)
[2022-05-08] MEDS: IPRATROPIUM NEB FS 0.5 MG/2.5 ML AMPUL.NEB NEB SCH ×4 (01:54→20:10)
[2022-05-08] MEDS: SIMETHICONE SUSP 40 MG/0.6 ML BOTTLE JT SCH ×3 (05:43→18:55)
[2022-05-08] MEDS: BACLOFEN (10 MG) 10 MG TABLET JT SCH ×3 (05:43→18:55)
[2022-05-08] MEDS: METOCLOPRAMIDE HCL 10 MG/10 ML UDC JT SCH ×3 (05:43→18:55)
[2022-05-08] MEDS: ERYTHROMYCIN ETHYLSUCCINATE 200 MG/5 ML SUSPENSION JT SCH ×3 (05:43→18:55)
[2022-05-08 07:28] VITALS: BP 127/65
[2022-05-08 07:45] LABS: BILIRUBIN,TOTAL 0.4 mg/dL (0.2-1.0); CALCIUM, SERUM 9.4 mg/dL (8.5-10.1); CREATININE 0.9 mg/dL (0.6-1.3); TOTAL PROTEIN, SERUM 8.8 g/dL (6.4-8.2)
[2022-05-08 08:00] LABS: BASOPHILS # (AUTO) 0.1 K/uL (0.0-0.2); BASOPHILS % (AUTO) 0.4 % (0.0-2.0); EOSINOPHILS % (AUTO) 1.6 % (0.0-6.0); HEMATOCRIT 42 % (39-51); LYMPHOCYTES # (AUTO) 1.8 K/uL (0.8-4.8); LYMPHOCYTES % (AUTO) 12.4 % (20.0-44.0); MEAN CORPUSCULAR HGB CONC 33 g/dl (31.0-36.0); MEAN CORPUSCULAR VOLUME 88 fL (80-96); MONOCYTES # (AUTO) 1.2 K/uL (0.1-1.30); MONOCYTES % (AUTO) 8.7 % (2.0-12.0); NEUTROPHILS % (AUTO) 76.9 % (43.0-81.0); PLATELET COUNT (AUTO) 337 K/uL (150-450); RED BLOOD CELL COUNT(AUTO) 4.79 MIL/uL (4.5-6.0); WHITE BLOOD COUNT (AUTO) 14.3 K/uL (4.3-11.0)
[2022-05-08 08:33] LABS: ALBUMIN 3.2 g/dL (3.4-5.0)
[2022-05-08] MEDS: METOPROLOL TARTRATE 25 MG TABLET JT SCH ×2 (09:00→20:52)
[2022-05-08] MEDS: CRANBERRY D MANNOSE JT SCH (09:00)
[2022-05-08] MEDS: Z GUARD REMEDY 4 OZ OINT TP SCH ×2 (09:00→20:52)
[2022-05-08] MEDS: TOPIRAMATE 50 MG JT SCH ×2 (09:00→20:52)
[2022-05-08] MEDS: CITRIC ACID/SODIUM CITRATE (BICITRA)15 ML UDC JT SCH ×4 (09:00→20:51)
[2022-05-08] MEDS: OMEPRAZOLE 20 MG CAPSULE.DR JT SCH ×2 (09:00→20:52)
[2022-05-08] MEDS: [UNRECOGNIZED DRUG - REMARK] JT SCH (09:00)
[2022-05-08] MEDS: NEOMY SULF/BACITRAC ZN/POLY 15 GM TUBE TP SCH ×2 (09:00→20:52)
[2022-05-08] MEDS: TIZANIDINE 2MG TABLET JT SCH ×2 (09:00→20:52)
[2022-05-08] MEDS: FERROUS SULFATE - FOR SA ONLY 330 MG/7.5 ML UDC JT SCH (09:00)
[2022-05-08] MEDS: DOCUSATE SODIUM LIQ 100 MG/10 ML UDC JT SCH ×2 (09:00→17:00)
[2022-05-08] MEDS: HYDROCODONE/APAP 5/325MG TABLET JT SCH (09:00)
[2022-05-08] MEDS: LEVETIRACETAM SOL (5 ML) 100 MG/ML UDC JT SCH ×2 (09:00→20:51)
[2022-05-08] MEDS: CHLORHEXIDINE GLUCONATE 15 ML UDC MM SCH ×2 (09:00→20:52)
[2022-05-08 09:51] LABS: POTASSIUM 2.3 mmol/L (3.5-5.1)
[2022-05-08] MEDS: HYDROGEN PEROXIDE 480 ML BOTTLE TP SCH ×2 (09:58→20:10)
[2022-05-08] MEDS ORDERED: IV NS 0.9% 1,000 ML IV PRN (11:30)
[2022-05-08] MEDS ORDERED: POTASSIUM CHLORIDE 20 MEQ POWDER PACKET GT SCH (11:30)
[2022-05-08] MEDS: ZOSYN IVPB 3.375 G in IV D5W 50ml IV SCH ×2 (13:00→18:55)
[2022-05-08] MEDS: POTASSIUM CHLORIDE 20 MEQ POWDER PACKET GT SCH ×2 (13:30→15:30)
[2022-05-08 13:41] VITALS: BP 116/79
[2022-05-08] MEDS: IV NS 0.9% 1,000 ML IV SCH (13:45)
[2022-05-08 15:48] LABS: BILIRUBIN,URINE NEGATIVE (NEGATIVE); COLOR,URINE YELLOW (YELLOW); LEUKOCYTE ESTERASE ,URINE 1+ (NEGATIVE); NITRITE, URINE NEGATIVE (NEGATIVE); PROTEIN,URINE 1+ mg/dl (NEGATIVE); UGLUCOSE NEGATIVE (NEGATIVE); UROBILINOGEN,URINE 0.2 EU/dL (0.2)
[2022-05-08 16:00] LABS: BACTERIA,URINE 2+ /HPF (None Seen); RBC,URINE 51-80 /HPF (0-2); SQUAMOUS EPITHELIAL CELL,UR 0-2 /HPF (None Seen)
[2022-05-08] MEDS: ONDANSETRON 4 MG TAB.RAPDIS JT PRN (16:20)
[2022-05-08] MEDS: VITAL AF 1.2 1,000 ML BOTTLE GT PRN (18:55)
[2022-05-08 20:00] VITALS: BP 127/77
[2022-05-08] MEDS: SENNOSIDES 8.6 MG TABLET JT SCH (21:35)
[2022-05-08] MEDS: MULTIVIT W/MINERALS 1 TAB TABLET JT SCH (21:35)
[2022-05-09] MEDS: ERYTHROMYCIN ETHYLSUCCINATE 200 MG/5 ML SUSPENSION JT SCH ×5 (00:25→23:14)
[2022-05-09] MEDS: SIMETHICONE SUSP 40 MG/0.6 ML BOTTLE JT SCH ×5 (00:25→23:14)
[2022-05-09] MEDS: BACLOFEN (10 MG) 10 MG TABLET JT SCH ×5 (00:25→23:14)
[2022-05-09] MEDS: METOCLOPRAMIDE HCL 10 MG/10 ML UDC JT SCH ×5 (00:25→23:14)
[2022-05-09] MEDS: ALBUTEROL FS 2.5 MG/3 ML VIAL.NEB NEB SCH ×4 (02:04→20:03)
[2022-05-09] MEDS: IPRATROPIUM NEB FS 0.5 MG/2.5 ML AMPUL.NEB NEB SCH ×4 (02:04→20:03)
[2022-05-09] MEDS: ZOSYN IVPB 3.375 G in IV D5W 50ml IV SCH ×5 (05:48→18:46)
[2022-05-09] MEDS: IV NS 0.9% 1,000 ML IV SCH (05:49)
[2022-05-09 06:19] LABS: BASOPHILS % (AUTO) 0.2 % (0.0-2.0); EOSINOPHILS % (AUTO) 5.8 % (0.0-6.0); HEMATOCRIT 37 % (39-51); HEMOGLOBIN 12.2 g/dL (13.5-17.5); LYMPHOCYTES # (AUTO) 1.2 K/uL (0.8-4.8); LYMPHOCYTES % (AUTO) 10.5 % (20.0-44.0); MEAN CORPUSCULAR HGB CONC 33 g/dl (31.0-36.0); MEAN CORPUSCULAR VOLUME 89 fL (80-96); MONOCYTES # (AUTO) 1.1 K/uL (0.1-1.30); MONOCYTES % (AUTO) 9.6 % (2.0-12.0); NEUTROPHILS # (AUTO) 8.4 K/uL (1.8-8.9); NEUTROPHILS % (AUTO) 73.9 % (43.0-81.0); PLATELET COUNT (AUTO) 298 K/uL (150-450); RED BLOOD CELL COUNT(AUTO) 4.17 MIL/uL (4.5-6.0); WHITE BLOOD COUNT (AUTO) 11.3 K/uL (4.3-11.0)
[2022-05-09 06:38] LABS: CREATININE 0.8 mg/dL (0.6-1.3)
[2022-05-09 06:55] LABS: POTASSIUM 2.6 mmol/L (3.5-5.1)
[2022-05-09 07:33] VITALS: BP 140/84
[2022-05-09] MEDS: HYDROGEN PEROXIDE 480 ML BOTTLE TP SCH ×2 (07:50→20:03)
[2022-05-09] MEDS: CITRIC ACID/SODIUM CITRATE (BICITRA)15 ML UDC JT SCH ×4 (09:08→21:30)
[2022-05-09] MEDS: FERROUS SULFATE - FOR SA ONLY 330 MG/7.5 ML UDC JT SCH (09:10)
[2022-05-09] MEDS: CRANBERRY D MANNOSE JT SCH (09:10)
[2022-05-09] MEDS: DOCUSATE SODIUM LIQ 100 MG/10 ML UDC JT SCH ×2 (09:10→16:47)
[2022-05-09] MEDS: LEVETIRACETAM SOL (5 ML) 100 MG/ML UDC JT SCH ×2 (09:11→21:30)
[2022-05-09] MEDS: METOPROLOL TARTRATE 25 MG TABLET JT SCH ×2 (09:12→21:31)
[2022-05-09] MEDS: [UNRECOGNIZED DRUG - REMARK] JT SCH (09:13)
[2022-05-09] MEDS: TOPIRAMATE 50 MG JT SCH ×2 (09:14→21:31)
[2022-05-09] MEDS: TIZANIDINE 2MG TABLET JT SCH ×2 (09:14→21:31)
[2022-05-09] MEDS: OMEPRAZOLE 20 MG CAPSULE.DR JT SCH ×2 (09:16→21:31)
[2022-05-09] MEDS: CHLORHEXIDINE GLUCONATE 15 ML UDC MM SCH ×2 (09:16→21:31)
[2022-05-09] MEDS: HYDROCODONE/APAP 5/325MG TABLET JT SCH (09:16)
[2022-05-09] MEDS: Z GUARD REMEDY 4 OZ OINT TP SCH ×2 (09:17→21:31)
[2022-05-09] MEDS: NEOMY SULF/BACITRAC ZN/POLY 15 GM TUBE TP SCH ×2 (09:17→21:31)
[2022-05-09] MEDS: POTASSIUM CHLORIDE 20 MEQ POWDER PACKET GT SCH ×3 (10:00→14:56)
[2022-05-09 12:08] VITALS: BP 121/79
[2022-05-09] MEDS: VITAL AF 1.2 1,000 ML BOTTLE GT PRN (14:56)
[2022-05-09 19:17] VITALS: BP 120/78
[2022-05-09] MEDS: MULTIVIT W/MINERALS 1 TAB TABLET JT SCH (21:31)
[2022-05-09] MEDS: SENNOSIDES 8.6 MG TABLET JT SCH (21:31)
[2022-05-09 23:53] VITALS: BP 122/77
[2022-05-10] MEDS: ZOSYN IVPB 3.375 G in IV D5W 50ml IV SCH ×2 (00:07→05:39)
[2022-05-10] MEDS: IPRATROPIUM NEB FS 0.5 MG/2.5 ML AMPUL.NEB NEB SCH ×4 (02:02→18:47)
[2022-05-10] MEDS: ALBUTEROL FS 2.5 MG/3 ML VIAL.NEB NEB SCH ×4 (02:02→18:47)
[2022-05-10] MEDS: BACLOFEN (10 MG) 10 MG TABLET JT SCH ×3 (05:21→17:54)
[2022-05-10] MEDS: SIMETHICONE SUSP 40 MG/0.6 ML BOTTLE JT SCH ×3 (05:21→17:54)
[2022-05-10] MEDS: ERYTHROMYCIN ETHYLSUCCINATE 200 MG/5 ML SUSPENSION JT SCH ×3 (05:21→17:54)
[2022-05-10] MEDS: METOCLOPRAMIDE HCL 10 MG/10 ML UDC JT SCH ×3 (05:21→17:54)
[2022-05-10] MEDS: HYDROGEN PEROXIDE 480 ML BOTTLE TP SCH ×2 (07:08→20:57)
[2022-05-10 07:34] LABS: CALCIUM, SERUM 8.9 mg/dL (8.5-10.1); CREATININE 0.8 mg/dL (0.6-1.3); MAGNESIUM 2.5 mg/dL (1.8-2.4); POTASSIUM 3.7 mmol/L (3.5-5.1)
[2022-05-10 07:56] VITALS: BP 111/81
[2022-05-10] MEDS: NEOMY SULF/BACITRAC ZN/POLY 15 GM TUBE TP SCH ×2 (09:00→21:20)
[2022-05-10] MEDS: LEVETIRACETAM SOL (5 ML) 100 MG/ML UDC JT SCH ×2 (09:59→21:19)
[2022-05-10] MEDS: FERROUS SULFATE - FOR SA ONLY 330 MG/7.5 ML UDC JT SCH (09:59)
[2022-05-10] MEDS: CRANBERRY D MANNOSE JT SCH (09:59)
[2022-05-10] MEDS: DOCUSATE SODIUM LIQ 100 MG/10 ML UDC JT SCH ×2 (09:59→17:54)
[2022-05-10] MEDS: Z GUARD REMEDY 4 OZ OINT TP SCH ×2 (10:00→21:20)
[2022-05-10] MEDS: METOPROLOL TARTRATE 25 MG TABLET JT SCH ×2 (10:00→21:20)
[2022-05-10] MEDS: TOPIRAMATE 50 MG JT SCH ×2 (10:00→21:20)
[2022-05-10] MEDS: CHLORHEXIDINE GLUCONATE 15 ML UDC MM SCH ×2 (10:00→21:20)
[2022-05-10] MEDS: HYDROCODONE/APAP 5/325MG TABLET JT SCH (10:00)
[2022-05-10] MEDS: OMEPRAZOLE 20 MG CAPSULE.DR JT SCH ×2 (10:00→21:20)
[2022-05-10] MEDS: [UNRECOGNIZED DRUG - REMARK] JT SCH (10:00)
[2022-05-10] MEDS: TIZANIDINE 2MG TABLET JT SCH ×2 (10:00→21:20)
[2022-05-10] MEDS: CITRIC ACID/SODIUM CITRATE (BICITRA)15 ML UDC JT SCH ×4 (10:03→21:19)
[2022-05-10] MEDS: IV D5W 1,000 ML IV SCH ×2 (10:30→21:00)
[2022-05-10 19:41] VITALS: BP 127/83
[2022-05-10] MEDS: MULTIVIT W/MINERALS 1 TAB TABLET JT SCH (21:20)
[2022-05-10] MEDS: SENNOSIDES 8.6 MG TABLET JT SCH (21:20)
[2022-05-11] VITALS: BP 123/78
[2022-05-11] MEDS: ERYTHROMYCIN ETHYLSUCCINATE 200 MG/5 ML SUSPENSION JT SCH ×4 (00:40→17:16)
[2022-05-11] MEDS: SIMETHICONE SUSP 40 MG/0.6 ML BOTTLE JT SCH ×4 (00:40→17:16)
[2022-05-11] MEDS: METOCLOPRAMIDE HCL 10 MG/10 ML UDC JT SCH ×4 (00:40→17:16)
[2022-05-11] MEDS: BACLOFEN (10 MG) 10 MG TABLET JT SCH ×4 (00:40→17:16)
[2022-05-11] MEDS: ALBUTEROL FS 2.5 MG/3 ML VIAL.NEB NEB SCH ×4 (00:42→20:06)
[2022-05-11] MEDS: IPRATROPIUM NEB FS 0.5 MG/2.5 ML AMPUL.NEB NEB SCH ×4 (00:42→20:06)
[2022-05-11] MEDS: VITAL AF 1.2 1,000 ML BOTTLE GT PRN (05:48)
[2022-05-11 08:04] VITALS: BP 138/93
[2022-05-11] MEDS: FERROUS SULFATE - FOR SA ONLY 330 MG/7.5 ML UDC JT SCH (08:49)
[2022-05-11] MEDS: CITRIC ACID/SODIUM CITRATE (BICITRA)15 ML UDC JT SCH ×4 (08:49→21:31)
[2022-05-11] MEDS: DOCUSATE SODIUM LIQ 100 MG/10 ML UDC JT SCH ×2 (08:49→17:16)
[2022-05-11] MEDS: LEVETIRACETAM SOL (5 ML) 100 MG/ML UDC JT SCH ×2 (08:49→21:31)
[2022-05-11] MEDS: CRANBERRY D MANNOSE JT SCH (08:49)
[2022-05-11] MEDS: [UNRECOGNIZED DRUG - REMARK] JT SCH (08:50)
[2022-05-11] MEDS: HYDROCODONE/APAP 5/325MG TABLET JT SCH (08:50)
[2022-05-11] MEDS: NEOMY SULF/BACITRAC ZN/POLY 15 GM TUBE TP SCH ×2 (08:50→21:31)
[2022-05-11] MEDS: Z GUARD REMEDY 4 OZ OINT TP SCH ×2 (08:50→21:31)
[2022-05-11] MEDS: CHLORHEXIDINE GLUCONATE 15 ML UDC MM SCH ×2 (08:50→21:31)
[2022-05-11] MEDS: METOPROLOL TARTRATE 25 MG TABLET JT SCH ×2 (08:50→21:31)
[2022-05-11] MEDS: OMEPRAZOLE 20 MG CAPSULE.DR JT SCH ×2 (08:50→21:31)
[2022-05-11] MEDS: TOPIRAMATE 50 MG JT SCH ×2 (08:50→21:31)
[2022-05-11] MEDS: TIZANIDINE 2MG TABLET JT SCH ×2 (08:50→21:31)
[2022-05-11] MEDS: HYDROGEN PEROXIDE 480 ML BOTTLE TP SCH ×2 (09:42→20:06)
[2022-05-11 12:13] VITALS: BP 132/87
[2022-05-11 20:10] VITALS: BP 117/78
[2022-05-11] MEDS: MULTIVIT W/MINERALS 1 TAB TABLET JT SCH (21:31)
[2022-05-11] MEDS: SENNOSIDES 8.6 MG TABLET JT SCH (21:31)
[2022-05-12] MEDS: SIMETHICONE SUSP 40 MG/0.6 ML BOTTLE JT SCH ×5 (00:17→23:17)
[2022-05-12] MEDS: BACLOFEN (10 MG) 10 MG TABLET JT SCH ×5 (00:17→23:17)
[2022-05-12] MEDS: ERYTHROMYCIN ETHYLSUCCINATE 200 MG/5 ML SUSPENSION JT SCH ×5 (00:17→23:17)
[2022-05-12] MEDS: METOCLOPRAMIDE HCL 10 MG/10 ML UDC JT SCH ×5 (00:17→23:17)
[2022-05-12] MEDS: ALBUTEROL FS 2.5 MG/3 ML VIAL.NEB NEB SCH ×4 (01:53→19:58)
[2022-05-12] MEDS: IPRATROPIUM NEB FS 0.5 MG/2.5 ML AMPUL.NEB NEB SCH ×4 (01:53→19:58)
[2022-05-12] MEDS: VITAL AF 1.2 1,000 ML BOTTLE GT PRN (05:21)
[2022-05-12 07:38] VITALS: BP 126/74
[2022-05-12] MEDS: [UNRECOGNIZED DRUG - REMARK] JT SCH (09:00)
[2022-05-12] MEDS: TIZANIDINE 2MG TABLET JT SCH ×2 (09:00→20:11)
[2022-05-12] MEDS: METOPROLOL TARTRATE 25 MG TABLET JT SCH ×2 (09:00→20:11)
[2022-05-12] MEDS: LEVETIRACETAM SOL (5 ML) 100 MG/ML UDC JT SCH ×2 (09:00→20:11)
[2022-05-12] MEDS: CRANBERRY D MANNOSE JT SCH (09:00)
[2022-05-12] MEDS: TOPIRAMATE 50 MG JT SCH ×2 (09:00→20:11)
[2022-05-12] MEDS: Z GUARD REMEDY 4 OZ OINT TP SCH ×2 (09:00→20:12)
[2022-05-12] MEDS: CHLORHEXIDINE GLUCONATE 15 ML UDC MM SCH ×2 (09:00→20:11)
[2022-05-12] MEDS: DOCUSATE SODIUM LIQ 100 MG/10 ML UDC JT SCH ×2 (09:00→17:15)
[2022-05-12] MEDS: HYDROCODONE/APAP 5/325MG TABLET JT SCH (09:00)
[2022-05-12] MEDS: OMEPRAZOLE 20 MG CAPSULE.DR JT SCH ×2 (09:00→20:11)
[2022-05-12] MEDS: CITRIC ACID/SODIUM CITRATE (BICITRA)15 ML UDC JT SCH ×4 (09:00→20:11)
[2022-05-12] MEDS: FERROUS SULFATE - FOR SA ONLY 330 MG/7.5 ML UDC JT SCH (09:00)
[2022-05-12] MEDS: NEOMY SULF/BACITRAC ZN/POLY 15 GM TUBE TP SCH ×2 (09:00→20:12)
[2022-05-12] MEDS: HYDROGEN PEROXIDE 480 ML BOTTLE TP SCH ×2 (09:24→19:58)
[2022-05-12 12:14] VITALS: BP 130/78
[2022-05-12] MEDS: ONDANSETRON 4 MG TAB.RAPDIS JT PRN (20:12)
[2022-05-12] MEDS: MULTIVIT W/MINERALS 1 TAB TABLET JT SCH (21:42)
[2022-05-12] MEDS: SENNOSIDES 8.6 MG TABLET JT SCH (21:42)
[2022-05-13] MEDS: ALBUTEROL FS 2.5 MG/3 ML VIAL.NEB NEB SCH ×4 (01:59→18:34)
[2022-05-13] MEDS: IPRATROPIUM NEB FS 0.5 MG/2.5 ML AMPUL.NEB NEB SCH ×4 (01:59→18:34)
[2022-05-13] MEDS: ERYTHROMYCIN ETHYLSUCCINATE 200 MG/5 ML SUSPENSION JT SCH ×3 (05:35→17:57)
[2022-05-13] MEDS: BACLOFEN (10 MG) 10 MG TABLET JT SCH ×3 (05:35→17:57)
[2022-05-13] MEDS: METOCLOPRAMIDE HCL 10 MG/10 ML UDC JT SCH ×3 (05:35→17:57)
[2022-05-13] MEDS: SIMETHICONE SUSP 40 MG/0.6 ML BOTTLE JT SCH ×3 (05:35→17:57)
[2022-05-13] MEDS: VITAL AF 1.2 1,000 ML BOTTLE GT PRN (05:36)
[2022-05-13 06:37] LABS: CALCIUM, SERUM 9.4 mg/dL (8.5-10.1); CREATININE 0.8 mg/dL (0.6-1.3); POTASSIUM 3.3 mmol/L (3.5-5.1)
[2022-05-13 07:31] VITALS: BP 137/86
[2022-05-13] MEDS: BISACODYL SUPP (10 MG) 10 MG/SUPP.RECT SUPP.RECT RC PRN (08:32)
[2022-05-13] MEDS: HYDROCODONE/APAP 5/325MG TABLET JT SCH (08:36)
[2022-05-13] MEDS: METOPROLOL TARTRATE 25 MG TABLET JT SCH ×2 (09:00→21:28)
[2022-05-13] MEDS: HYDROGEN PEROXIDE 480 ML BOTTLE TP SCH ×2 (09:22→21:21)
[2022-05-13] MEDS: CITRIC ACID/SODIUM CITRATE (BICITRA)15 ML UDC JT SCH ×4 (09:35→21:26)
[2022-05-13] MEDS: CRANBERRY D MANNOSE JT SCH (09:37)
[2022-05-13] MEDS: DOCUSATE SODIUM LIQ 100 MG/10 ML UDC JT SCH ×2 (09:37→17:57)
[2022-05-13] MEDS: FERROUS SULFATE - FOR SA ONLY 330 MG/7.5 ML UDC JT SCH (09:37)
[2022-05-13] MEDS: LEVETIRACETAM SOL (5 ML) 100 MG/ML UDC JT SCH ×2 (09:38→21:26)
[2022-05-13] MEDS: [UNRECOGNIZED DRUG - REMARK] JT SCH (09:39)
[2022-05-13] MEDS: TIZANIDINE 2MG TABLET JT SCH ×2 (09:40→21:28)
[2022-05-13] MEDS: TOPIRAMATE 50 MG JT SCH ×2 (09:40→21:28)
[2022-05-13] MEDS: CHLORHEXIDINE GLUCONATE 15 ML UDC MM SCH ×2 (09:41→21:28)
[2022-05-13] MEDS: OMEPRAZOLE 20 MG CAPSULE.DR JT SCH ×2 (09:41→21:28)
[2022-05-13] MEDS: NEOMY SULF/BACITRAC ZN/POLY 15 GM TUBE TP SCH ×2 (09:41→21:28)
[2022-05-13] MEDS: Z GUARD REMEDY 4 OZ OINT TP SCH ×2 (09:41→21:28)
[2022-05-13] MEDS: AMIKACIN 300 MG in IV D5W 100 ML IV SCH ×2 (11:17→18:30)
[2022-05-13 11:36] VITALS: BP 117/66
[2022-05-13] MEDS: Potassium Chloride 10 MEQ in IV D5W 50 ML IV SCH ×2 (12:30→13:15)
[2022-05-13] MEDS: MULTIVIT W/MINERALS 1 TAB TABLET JT SCH (21:28)
[2022-05-13] MEDS: SENNOSIDES 8.6 MG TABLET JT SCH (21:28)
[2022-05-13 21:31] VITALS: BP 135/84
[2022-05-14] MEDS: METOCLOPRAMIDE HCL 10 MG/10 ML UDC JT SCH ×4 (00:09→17:53)
[2022-05-14] MEDS: ERYTHROMYCIN ETHYLSUCCINATE 200 MG/5 ML SUSPENSION JT SCH ×4 (00:09→17:53)
[2022-05-14] MEDS: SIMETHICONE SUSP 40 MG/0.6 ML BOTTLE JT SCH ×4 (00:09→17:53)
[2022-05-14] MEDS: BACLOFEN (10 MG) 10 MG TABLET JT SCH ×4 (00:09→17:53)
[2022-05-14] MEDS: ALBUTEROL FS 2.5 MG/3 ML VIAL.NEB NEB SCH ×4 (01:37→19:56)
[2022-05-14] MEDS: IPRATROPIUM NEB FS 0.5 MG/2.5 ML AMPUL.NEB NEB SCH ×4 (01:37→19:56)
[2022-05-14] MEDS: AMIKACIN 300 MG in IV D5W 100 ML IV SCH ×3 (03:00→18:23)
[2022-05-14] MEDS: HYDROGEN PEROXIDE 480 ML BOTTLE TP SCH ×2 (06:24→21:04)
[2022-05-14 07:21] VITALS: BP 115/74
[2022-05-14] MEDS: NEOMY SULF/BACITRAC ZN/POLY 15 GM TUBE TP SCH ×2 (09:00→20:38)
[2022-05-14] MEDS: Z GUARD REMEDY 4 OZ OINT TP SCH ×2 (09:00→20:38)
[2022-05-14] MEDS: CITRIC ACID/SODIUM CITRATE (BICITRA)15 ML UDC JT SCH ×4 (09:59→20:37)
[2022-05-14] MEDS: LEVETIRACETAM SOL (5 ML) 100 MG/ML UDC JT SCH ×2 (09:59→20:37)
[2022-05-14] MEDS: CRANBERRY D MANNOSE JT SCH (09:59)
[2022-05-14] MEDS: DOCUSATE SODIUM LIQ 100 MG/10 ML UDC JT SCH ×2 (09:59→17:53)
[2022-05-14] MEDS: METOPROLOL TARTRATE 25 MG TABLET JT SCH ×2 (09:59→20:38)
[2022-05-14] MEDS: [UNRECOGNIZED DRUG - REMARK] JT SCH (09:59)
[2022-05-14] MEDS: FERROUS SULFATE - FOR SA ONLY 330 MG/7.5 ML UDC JT SCH (09:59)
[2022-05-14] MEDS: OMEPRAZOLE 20 MG CAPSULE.DR JT SCH ×2 (10:00→20:38)
[2022-05-14] MEDS: HYDROCODONE/APAP 5/325MG TABLET JT SCH (10:00)
[2022-05-14] MEDS: TOPIRAMATE 50 MG JT SCH ×2 (10:00→20:38)
[2022-05-14] MEDS: TIZANIDINE 2MG TABLET JT SCH ×2 (10:00→20:38)
[2022-05-14] MEDS: CHLORHEXIDINE GLUCONATE 15 ML UDC MM SCH ×2 (10:00→20:38)
[2022-05-14 11:29] LABS: CREATININE 0.9 mg/dL (0.6-1.3)
[2022-05-14 11:39] LABS: CALCIUM, SERUM 10.2 mg/dL (8.5-10.1); CREATININE 0.9 mg/dL (0.6-1.3)
[2022-05-14 12:56] VITALS: BP 116/69
[2022-05-14] MEDS ORDERED: POTASSIUM CHLORIDE 20 MEQ POWDER PACKET GT SCH (17:30)
[2022-05-14] MEDS: VITAL AF 1.2 1,000 ML BOTTLE GT PRN (18:44)
[2022-05-14 19:18] VITALS: BP_SYST 128; BP_SYST 141; BP_DIAS 69; BP_DIAS 76
[2022-05-14] MEDS: MULTIVIT W/MINERALS 1 TAB TABLET JT SCH (21:52)
[2022-05-14] MEDS: SENNOSIDES 8.6 MG TABLET JT SCH (21:52)
[2022-05-15] MEDS: ALBUTEROL FS 2.5 MG/3 ML VIAL.NEB NEB SCH ×4 (01:40→20:19)
[2022-05-15] MEDS: IPRATROPIUM NEB FS 0.5 MG/2.5 ML AMPUL.NEB NEB SCH ×4 (01:40→20:19)
[2022-05-15] MEDS: AMIKACIN 300 MG in IV D5W 100 ML IV SCH ×2 (02:27→11:30)
[2022-05-15] MEDS: BACLOFEN (10 MG) 10 MG TABLET JT SCH ×4 (06:39→17:10)
[2022-05-15] MEDS: SIMETHICONE SUSP 40 MG/0.6 ML BOTTLE JT SCH ×4 (06:39→17:10)
[2022-05-15] MEDS: METOCLOPRAMIDE HCL 10 MG/10 ML UDC JT SCH ×4 (06:39→17:10)
[2022-05-15] MEDS: ERYTHROMYCIN ETHYLSUCCINATE 200 MG/5 ML SUSPENSION JT SCH ×4 (06:39→17:10)
[2022-05-15 07:27] VITALS: BP 124/76
[2022-05-15] MEDS: HYDROGEN PEROXIDE 480 ML BOTTLE TP SCH ×2 (09:16→20:19)
[2022-05-15] MEDS: LEVETIRACETAM SOL (5 ML) 100 MG/ML UDC JT SCH ×2 (09:28→21:44)
[2022-05-15] MEDS: DOCUSATE SODIUM LIQ 100 MG/10 ML UDC JT SCH ×2 (09:28→16:52)
[2022-05-15] MEDS: CITRIC ACID/SODIUM CITRATE (BICITRA)15 ML UDC JT SCH ×4 (09:28→21:44)
[2022-05-15] MEDS: CRANBERRY D MANNOSE JT SCH (09:28)
[2022-05-15] MEDS: FERROUS SULFATE - FOR SA ONLY 330 MG/7.5 ML UDC JT SCH (09:28)
[2022-05-15] MEDS: METOPROLOL TARTRATE 25 MG TABLET JT SCH ×2 (09:29→21:00)
[2022-05-15] MEDS: NEOMY SULF/BACITRAC ZN/POLY 15 GM TUBE TP SCH ×2 (09:29→21:46)
[2022-05-15] MEDS: Z GUARD REMEDY 4 OZ OINT TP SCH ×2 (09:29→21:46)
[2022-05-15] MEDS: CHLORHEXIDINE GLUCONATE 15 ML UDC MM SCH ×2 (09:29→21:46)
[2022-05-15] MEDS: TIZANIDINE 2MG TABLET JT SCH ×2 (09:29→21:45)
[2022-05-15] MEDS: TOPIRAMATE 50 MG JT SCH ×2 (09:29→21:46)
[2022-05-15] MEDS: OMEPRAZOLE 20 MG CAPSULE.DR JT SCH ×2 (09:29→21:46)
[2022-05-15] MEDS: [UNRECOGNIZED DRUG - REMARK] JT SCH (09:29)
[2022-05-15] MEDS: HYDROCODONE/APAP 5/325MG TABLET JT SCH (09:29)
[2022-05-15 13:07] VITALS: BP 119/78
[2022-05-15] MEDS: VITAL AF 1.2 1,000 ML BOTTLE GT PRN (17:28)
[2022-05-15] MEDS ORDERED: POTASSIUM CHLORIDE 20 MEQ POWDER PACKET GT ONE (17:30)
[2022-05-15] MEDS ORDERED: AMIKACIN 300 MG in IV D5W 100 ML IV SCH (19:03)
[2022-05-15] MEDS ORDERED: AMIKACIN 300 MG in IV NS 0.9% 100 ML IV SCH (19:09)
[2022-05-15] MEDS: AMIKACIN 300 MG in IV NS 0.9% 100 ML IV SCH (19:12)
[2022-05-15 20:00] VITALS: BP 104/73
[2022-05-15] MEDS: SENNOSIDES 8.6 MG TABLET JT SCH (21:46)
[2022-05-15] MEDS: MULTIVIT W/MINERALS 1 TAB TABLET JT SCH (21:46)
[2022-05-16] MEDS: ERYTHROMYCIN ETHYLSUCCINATE 200 MG/5 ML SUSPENSION JT SCH ×4 (00:58→17:30)
[2022-05-16] MEDS: SIMETHICONE SUSP 40 MG/0.6 ML BOTTLE JT SCH ×4 (00:58→17:31)
[2022-05-16] MEDS: BACLOFEN (10 MG) 10 MG TABLET JT SCH ×4 (00:58→17:31)
[2022-05-16] MEDS: METOCLOPRAMIDE HCL 10 MG/10 ML UDC JT SCH ×4 (00:58→17:31)
[2022-05-16] MEDS: ALBUTEROL FS 2.5 MG/3 ML VIAL.NEB NEB SCH ×4 (02:20→19:54)
[2022-05-16] MEDS: IPRATROPIUM NEB FS 0.5 MG/2.5 ML AMPUL.NEB NEB SCH ×4 (02:20→19:54)
[2022-05-16] MEDS: AMIKACIN 300 MG in IV NS 0.9% 100 ML IV SCH ×3 (03:37→19:10)
[2022-05-16 07:24] VITALS: BP 123/74
[2022-05-16 07:35] LABS: CREATININE 0.9 mg/dL (0.6-1.3)
[2022-05-16 08:08] LABS: POTASSIUM 2.7 mmol/L (3.5-5.1)
[2022-05-16] MEDS: CITRIC ACID/SODIUM CITRATE (BICITRA)15 ML UDC JT SCH ×4 (08:34→21:15)
[2022-05-16] MEDS: CRANBERRY D MANNOSE JT SCH (08:35)
[2022-05-16] MEDS: DOCUSATE SODIUM LIQ 100 MG/10 ML UDC JT SCH ×2 (08:35→17:30)
[2022-05-16] MEDS: FERROUS SULFATE - FOR SA ONLY 330 MG/7.5 ML UDC JT SCH (08:35)
[2022-05-16] MEDS: LEVETIRACETAM SOL (5 ML) 100 MG/ML UDC JT SCH ×2 (08:42→21:15)
[2022-05-16] MEDS: METOPROLOL TARTRATE 25 MG TABLET JT SCH ×2 (08:43→21:16)
[2022-05-16] MEDS: OMEPRAZOLE 20 MG CAPSULE.DR JT SCH ×2 (08:44→21:16)
[2022-05-16] MEDS: HYDROCODONE/APAP 5/325MG TABLET JT SCH (08:44)
[2022-05-16] MEDS: TIZANIDINE 2MG TABLET JT SCH ×2 (08:44→21:16)
[2022-05-16] MEDS: [UNRECOGNIZED DRUG - REMARK] JT SCH (08:44)
[2022-05-16] MEDS: CHLORHEXIDINE GLUCONATE 15 ML UDC MM SCH ×2 (08:44→21:16)
[2022-05-16] MEDS: TOPIRAMATE 50 MG JT SCH ×2 (08:44→21:16)
[2022-05-16] MEDS: NEOMY SULF/BACITRAC ZN/POLY 15 GM TUBE TP SCH ×2 (08:45→21:16)
[2022-05-16] MEDS: Z GUARD REMEDY 4 OZ OINT TP SCH ×2 (08:45→21:16)
[2022-05-16] MEDS: HYDROGEN PEROXIDE 480 ML BOTTLE TP SCH ×2 (09:36→19:54)
[2022-05-16] MEDS: POTASSIUM CHLORIDE 20 MEQ POWDER PACKET GT SCH ×2 (11:11→13:12)
[2022-05-16 11:48] VITALS: BP 120/79
[2022-05-16] MEDS: VITAL AF 1.2 1,000 ML BOTTLE GT PRN (18:56)
[2022-05-16 20:02] VITALS: BP 127/88
[2022-05-16] MEDS: MULTIVIT W/MINERALS 1 TAB TABLET JT SCH (21:16)
[2022-05-16] MEDS: SENNOSIDES 8.6 MG TABLET JT SCH (21:16)
[2022-05-17 00:17] VITALS: BP 118/58
[2022-05-17] MEDS: IPRATROPIUM NEB FS 0.5 MG/2.5 ML AMPUL.NEB NEB SCH ×4 (01:58→18:38)
[2022-05-17] MEDS: ALBUTEROL FS 2.5 MG/3 ML VIAL.NEB NEB SCH ×4 (01:58→18:38)
[2022-05-17] MEDS: AMIKACIN 300 MG in IV NS 0.9% 100 ML IV SCH ×3 (03:10→19:15)
[2022-05-17] MEDS: BACLOFEN (10 MG) 10 MG TABLET JT SCH ×4 (05:58→17:01)
[2022-05-17] MEDS: ERYTHROMYCIN ETHYLSUCCINATE 200 MG/5 ML SUSPENSION JT SCH ×4 (05:58→17:01)
[2022-05-17] MEDS: METOCLOPRAMIDE HCL 10 MG/10 ML UDC JT SCH ×4 (05:58→17:01)
[2022-05-17] MEDS: SIMETHICONE SUSP 40 MG/0.6 ML BOTTLE JT SCH ×4 (05:58→17:01)
[2022-05-17 07:11] LABS: CALCIUM, SERUM 8.9 mg/dL (8.5-10.1); CREATININE 0.7 mg/dL (0.6-1.3)
[2022-05-17 07:19] LABS: POTASSIUM 2.8 mmol/L (3.5-5.1)
[2022-05-17 07:37] VITALS: BP 137/99
[2022-05-17] MEDS: NEOMY SULF/BACITRAC ZN/POLY 15 GM TUBE TP SCH ×2 (09:00→21:42)
[2022-05-17] MEDS: Z GUARD REMEDY 4 OZ OINT TP SCH ×2 (09:00→21:42)
[2022-05-17] MEDS: HYDROGEN PEROXIDE 480 ML BOTTLE TP SCH ×2 (09:19→21:09)
[2022-05-17] MEDS: CRANBERRY D MANNOSE JT SCH (09:42)
[2022-05-17] MEDS: CITRIC ACID/SODIUM CITRATE (BICITRA)15 ML UDC JT SCH ×4 (09:42→21:42)
[2022-05-17] MEDS: METOPROLOL TARTRATE 25 MG TABLET JT SCH ×2 (09:42→21:42)
[2022-05-17] MEDS: LEVETIRACETAM SOL (5 ML) 100 MG/ML UDC JT SCH ×2 (09:42→21:42)
[2022-05-17] MEDS: FERROUS SULFATE - FOR SA ONLY 330 MG/7.5 ML UDC JT SCH (09:42)
[2022-05-17] MEDS: TIZANIDINE 2MG TABLET JT SCH ×2 (09:42→21:42)
[2022-05-17] MEDS: DOCUSATE SODIUM LIQ 100 MG/10 ML UDC JT SCH ×2 (09:42→17:01)
[2022-05-17] MEDS: [UNRECOGNIZED DRUG - REMARK] JT SCH (09:42)
[2022-05-17] MEDS: TOPIRAMATE 50 MG JT SCH ×2 (09:42→21:42)
[2022-05-17] MEDS: OMEPRAZOLE 20 MG CAPSULE.DR JT SCH ×2 (09:43→21:42)
[2022-05-17] MEDS: HYDROCODONE/APAP 5/325MG TABLET JT SCH (09:43)
[2022-05-17] MEDS: CHLORHEXIDINE GLUCONATE 15 ML UDC MM SCH ×2 (09:43→21:42)
[2022-05-17] MEDS ORDERED: POTASSIUM CHLORIDE 20 MEQ POWDER PACKET GT SCH (10:30)
[2022-05-17 11:08] LABS: CREATININE 0.8 mg/dL (0.6-1.3)
[2022-05-17 11:29] VITALS: BP 98/64
[2022-05-17] MEDS: POTASSIUM CHLORIDE 20 MEQ POWDER PACKET GT SCH ×2 (12:55→14:00)
[2022-05-17] MEDS: VITAL AF 1.2 1,000 ML BOTTLE GT PRN (18:50)
[2022-05-17 21:06] VITALS: BP 127/95
[2022-05-17] MEDS: MULTIVIT W/MINERALS 1 TAB TABLET JT SCH (21:42)
[2022-05-17] MEDS: SENNOSIDES 8.6 MG TABLET JT SCH (21:42)
[2022-05-18] MEDS: BACLOFEN (10 MG) 10 MG TABLET JT SCH ×5 (00:25→23:39)
[2022-05-18] MEDS: SIMETHICONE SUSP 40 MG/0.6 ML BOTTLE JT SCH ×5 (00:25→23:39)
[2022-05-18] MEDS: ERYTHROMYCIN ETHYLSUCCINATE 200 MG/5 ML SUSPENSION JT SCH ×5 (00:25→23:39)
[2022-05-18] MEDS: METOCLOPRAMIDE HCL 10 MG/10 ML UDC JT SCH ×5 (00:25→23:39)
[2022-05-18 00:26] VITALS: BP 121/76
[2022-05-18] MEDS: ALBUTEROL FS 2.5 MG/3 ML VIAL.NEB NEB SCH ×4 (01:01→19:43)
[2022-05-18] MEDS: IPRATROPIUM NEB FS 0.5 MG/2.5 ML AMPUL.NEB NEB SCH ×4 (01:01→19:44)
[2022-05-18] MEDS: AMIKACIN 300 MG in IV NS 0.9% 100 ML IV SCH ×3 (03:10→18:53)
[2022-05-18 07:37] VITALS: BP 127/77
[2022-05-18] MEDS: CRANBERRY D MANNOSE JT SCH (08:26)
[2022-05-18] MEDS: LEVETIRACETAM SOL (5 ML) 100 MG/ML UDC JT SCH ×2 (08:26→20:26)
[2022-05-18] MEDS: METOPROLOL TARTRATE 25 MG TABLET JT SCH ×2 (08:26→20:27)
[2022-05-18] MEDS: TIZANIDINE 2MG TABLET JT SCH ×2 (08:26→20:27)
[2022-05-18] MEDS: DOCUSATE SODIUM LIQ 100 MG/10 ML UDC JT SCH ×2 (08:26→17:05)
[2022-05-18] MEDS: FERROUS SULFATE - FOR SA ONLY 330 MG/7.5 ML UDC JT SCH (08:26)
[2022-05-18] MEDS: Z GUARD REMEDY 4 OZ OINT TP SCH ×2 (08:26→20:27)
[2022-05-18] MEDS: [UNRECOGNIZED DRUG - REMARK] JT SCH (08:26)
[2022-05-18] MEDS: HYDROCODONE/APAP 5/325MG TABLET JT SCH (08:26)
[2022-05-18] MEDS: CITRIC ACID/SODIUM CITRATE (BICITRA)15 ML UDC JT SCH ×4 (08:26→20:26)
[2022-05-18] MEDS: TOPIRAMATE 50 MG JT SCH ×2 (08:26→20:27)
[2022-05-18] MEDS: OMEPRAZOLE 20 MG CAPSULE.DR JT SCH ×2 (08:26→20:27)
[2022-05-18] MEDS: CHLORHEXIDINE GLUCONATE 15 ML UDC MM SCH ×2 (08:26→20:27)
[2022-05-18] MEDS: NEOMY SULF/BACITRAC ZN/POLY 15 GM TUBE TP SCH ×2 (08:26→20:27)
[2022-05-18] MEDS: HYDROGEN PEROXIDE 480 ML BOTTLE TP SCH ×2 (09:09→21:03)
[2022-05-18 11:37] VITALS: BP 117/74
[2022-05-18 18:55] VITALS: BP 128/75
[2022-05-18 18:57] VITALS: BP 131/81
[2022-05-18] MEDS: SENNOSIDES 8.6 MG TABLET JT SCH (21:05)
[2022-05-18] MEDS: MULTIVIT W/MINERALS 1 TAB TABLET JT SCH (21:05)
[2022-05-19] MEDS: VITAL AF 1.2 1,000 ML BOTTLE GT PRN (01:00)
[2022-05-19] MEDS: IPRATROPIUM NEB FS 0.5 MG/2.5 ML AMPUL.NEB NEB SCH ×4 (01:36→19:52)
[2022-05-19] MEDS: ALBUTEROL FS 2.5 MG/3 ML VIAL.NEB NEB SCH ×4 (01:36→19:52)
[2022-05-19] MEDS: AMIKACIN 300 MG in IV NS 0.9% 100 ML IV SCH ×3 (02:29→19:20)
[2022-05-19] MEDS: SIMETHICONE SUSP 40 MG/0.6 ML BOTTLE JT SCH ×4 (05:09→23:44)
[2022-05-19] MEDS: METOCLOPRAMIDE HCL 10 MG/10 ML UDC JT SCH ×4 (05:09→23:44)
[2022-05-19] MEDS: BACLOFEN (10 MG) 10 MG TABLET JT SCH ×4 (05:09→23:44)
[2022-05-19] MEDS: ERYTHROMYCIN ETHYLSUCCINATE 200 MG/5 ML SUSPENSION JT SCH ×4 (05:09→23:44)
[2022-05-19 08:23] VITALS: BP 121/72
[2022-05-19] MEDS: HYDROGEN PEROXIDE 480 ML BOTTLE TP SCH ×2 (08:49→21:14)
[2022-05-19] MEDS: LEVETIRACETAM SOL (5 ML) 100 MG/ML UDC JT SCH ×2 (09:37→20:50)
[2022-05-19] MEDS: DOCUSATE SODIUM LIQ 100 MG/10 ML UDC JT SCH ×2 (09:37→17:17)
[2022-05-19] MEDS: [UNRECOGNIZED DRUG - REMARK] JT SCH (09:37)
[2022-05-19] MEDS: TOPIRAMATE 50 MG JT SCH ×2 (09:37→20:50)
[2022-05-19] MEDS: FERROUS SULFATE - FOR SA ONLY 330 MG/7.5 ML UDC JT SCH (09:37)
[2022-05-19] MEDS: METOPROLOL TARTRATE 25 MG TABLET JT SCH ×2 (09:37→20:50)
[2022-05-19] MEDS: CITRIC ACID/SODIUM CITRATE (BICITRA)15 ML UDC JT SCH ×4 (09:37→20:50)
[2022-05-19] MEDS: CRANBERRY D MANNOSE JT SCH (09:37)
[2022-05-19] MEDS: TIZANIDINE 2MG TABLET JT SCH ×2 (09:37→20:50)
[2022-05-19] MEDS: CHLORHEXIDINE GLUCONATE 15 ML UDC MM SCH ×2 (09:38→20:50)
[2022-05-19] MEDS: Z GUARD REMEDY 4 OZ OINT TP SCH ×2 (09:38→20:50)
[2022-05-19] MEDS: OMEPRAZOLE 20 MG CAPSULE.DR JT SCH ×2 (09:38→20:50)
[2022-05-19] MEDS: HYDROCODONE/APAP 5/325MG TABLET JT SCH (09:38)
[2022-05-19] MEDS: SENNOSIDES 8.6 MG TABLET JT SCH (21:12)
[2022-05-19] MEDS: MULTIVIT W/MINERALS 1 TAB TABLET JT SCH (21:12)
[2022-05-19 21:29] VITALS: BP 113/80
[2022-05-20] MEDS: ALBUTEROL FS 2.5 MG/3 ML VIAL.NEB NEB SCH ×4 (01:37→19:51)
[2022-05-20] MEDS: IPRATROPIUM NEB FS 0.5 MG/2.5 ML AMPUL.NEB NEB SCH ×4 (01:37→19:51)
[2022-05-20] MEDS: AMIKACIN 300 MG in IV NS 0.9% 100 ML IV SCH (03:10)
[2022-05-20] MEDS: ERYTHROMYCIN ETHYLSUCCINATE 200 MG/5 ML SUSPENSION JT SCH ×4 (05:09→23:16)
[2022-05-20] MEDS: METOCLOPRAMIDE HCL 10 MG/10 ML UDC JT SCH ×4 (05:09→23:16)
[2022-05-20] MEDS: SIMETHICONE SUSP 40 MG/0.6 ML BOTTLE JT SCH ×4 (05:09→23:16)
[2022-05-20] MEDS: BACLOFEN (10 MG) 10 MG TABLET JT SCH ×4 (05:09→23:16)
[2022-05-20] MEDS: VITAL AF 1.2 1,000 ML BOTTLE GT PRN (05:10)
[2022-05-20 08:11] VITALS: BP 119/73
[2022-05-20] MEDS: HYDROGEN PEROXIDE 480 ML BOTTLE TP SCH ×2 (09:19→21:13)
[2022-05-20] MEDS: DOCUSATE SODIUM LIQ 100 MG/10 ML UDC JT SCH ×2 (09:43→17:19)
[2022-05-20] MEDS: CRANBERRY D MANNOSE JT SCH (09:43)
[2022-05-20] MEDS: LEVETIRACETAM SOL (5 ML) 100 MG/ML UDC JT SCH ×2 (09:43→21:00)
[2022-05-20] MEDS: CITRIC ACID/SODIUM CITRATE (BICITRA)15 ML UDC JT SCH ×4 (09:43→21:00)
[2022-05-20] MEDS: FERROUS SULFATE - FOR SA ONLY 330 MG/7.5 ML UDC JT SCH (09:43)
[2022-05-20] MEDS: Z GUARD REMEDY 4 OZ OINT TP SCH ×2 (09:44→21:00)
[2022-05-20] MEDS: CHLORHEXIDINE GLUCONATE 15 ML UDC MM SCH ×2 (09:44→21:00)
[2022-05-20] MEDS: OMEPRAZOLE 20 MG CAPSULE.DR JT SCH ×2 (09:44→21:00)
[2022-05-20] MEDS: METOPROLOL TARTRATE 25 MG TABLET JT SCH ×2 (09:44→21:00)
[2022-05-20] MEDS: TIZANIDINE 2MG TABLET JT SCH ×2 (09:44→21:00)
[2022-05-20] MEDS: TOPIRAMATE 50 MG JT SCH ×2 (09:44→21:00)
[2022-05-20] MEDS: [UNRECOGNIZED DRUG - REMARK] JT SCH (09:44)
[2022-05-20] MEDS: HYDROCODONE/APAP 5/325MG TABLET JT SCH (09:44)
[2022-05-20 20:00] VITALS: BP 130/79
[2022-05-20] MEDS: SENNOSIDES 8.6 MG TABLET JT SCH (22:30)
[2022-05-20] MEDS: MULTIVIT W/MINERALS 1 TAB TABLET JT SCH (22:30)
[2022-05-21] MEDS: ALBUTEROL FS 2.5 MG/3 ML VIAL.NEB NEB SCH ×4 (01:51→19:52)
[2022-05-21] MEDS: IPRATROPIUM NEB FS 0.5 MG/2.5 ML AMPUL.NEB NEB SCH ×4 (01:51→19:52)
[2022-05-21] MEDS: ERYTHROMYCIN ETHYLSUCCINATE 200 MG/5 ML SUSPENSION JT SCH ×3 (06:08→17:08)
[2022-05-21] MEDS: METOCLOPRAMIDE HCL 10 MG/10 ML UDC JT SCH ×3 (06:08→17:08)
[2022-05-21] MEDS: BACLOFEN (10 MG) 10 MG TABLET JT SCH ×3 (06:08→17:08)
[2022-05-21] MEDS: SIMETHICONE SUSP 40 MG/0.6 ML BOTTLE JT SCH ×3 (06:08→17:08)
[2022-05-21] MEDS: FERROUS SULFATE - FOR SA ONLY 330 MG/7.5 ML UDC JT SCH (09:44)
[2022-05-21] MEDS: DOCUSATE SODIUM LIQ 100 MG/10 ML UDC JT SCH ×2 (09:44→16:38)
[2022-05-21] MEDS: CITRIC ACID/SODIUM CITRATE (BICITRA)15 ML UDC JT SCH ×4 (09:44→20:20)
[2022-05-21] MEDS: CRANBERRY D MANNOSE JT SCH (09:48)
[2022-05-21] MEDS: LEVETIRACETAM SOL (5 ML) 100 MG/ML UDC JT SCH ×2 (09:49→20:20)
[2022-05-21] MEDS: METOPROLOL TARTRATE 25 MG TABLET JT SCH ×2 (09:49→20:20)
[2022-05-21] MEDS: TOPIRAMATE 50 MG JT SCH ×2 (09:50→20:20)
[2022-05-21] MEDS: TIZANIDINE 2MG TABLET JT SCH ×2 (09:50→20:20)
[2022-05-21] MEDS: [UNRECOGNIZED DRUG - REMARK] JT SCH (09:50)
[2022-05-21] MEDS: OMEPRAZOLE 20 MG CAPSULE.DR JT SCH ×2 (09:51→20:20)
[2022-05-21] MEDS: Z GUARD REMEDY 4 OZ OINT TP SCH ×2 (09:51→20:21)
[2022-05-21] MEDS: HYDROCODONE/APAP 5/325MG TABLET JT SCH (09:51)
[2022-05-21] MEDS: CHLORHEXIDINE GLUCONATE 15 ML UDC MM SCH ×2 (09:51→20:21)
[2022-05-21] MEDS: HYDROGEN PEROXIDE 480 ML BOTTLE TP SCH ×2 (14:16→21:08)
[2022-05-21 20:22] VITALS: BP 111/66
[2022-05-21] MEDS: MULTIVIT W/MINERALS 1 TAB TABLET JT SCH (21:52)
[2022-05-21] MEDS: SENNOSIDES 8.6 MG TABLET JT SCH (21:52)
[2022-05-22] MEDS: BACLOFEN (10 MG) 10 MG TABLET JT SCH ×4 (00:05→17:13)
[2022-05-22] MEDS: ERYTHROMYCIN ETHYLSUCCINATE 200 MG/5 ML SUSPENSION JT SCH ×4 (00:05→17:13)
[2022-05-22] MEDS: SIMETHICONE SUSP 40 MG/0.6 ML BOTTLE JT SCH ×4 (00:05→17:13)
[2022-05-22] MEDS: METOCLOPRAMIDE HCL 10 MG/10 ML UDC JT SCH ×4 (00:05→17:13)
[2022-05-22] MEDS: ALBUTEROL FS 2.5 MG/3 ML VIAL.NEB NEB SCH ×4 (01:40→20:21)
[2022-05-22] MEDS: IPRATROPIUM NEB FS 0.5 MG/2.5 ML AMPUL.NEB NEB SCH ×4 (01:40→20:21)
[2022-05-22] MEDS: VITAL AF 1.2 1,000 ML BOTTLE GT PRN (05:03)
[2022-05-22 07:00] VITALS: BP 130/90
[2022-05-22] MEDS ORDERED: Z GUARD REMEDY 4 OZ OINT TP PRN (07:30)
[2022-05-22] MEDS: HYDROGEN PEROXIDE 480 ML BOTTLE TP SCH ×2 (08:32→20:21)
[2022-05-22] MEDS: OMEPRAZOLE 20 MG CAPSULE.DR JT SCH ×2 (09:40→21:36)
[2022-05-22] MEDS: FERROUS SULFATE - FOR SA ONLY 330 MG/7.5 ML UDC JT SCH (09:40)
[2022-05-22] MEDS: TIZANIDINE 2MG TABLET JT SCH ×2 (09:40→21:36)
[2022-05-22] MEDS: [UNRECOGNIZED DRUG - REMARK] JT SCH (09:40)
[2022-05-22] MEDS: DOCUSATE SODIUM LIQ 100 MG/10 ML UDC JT SCH ×2 (09:40→17:13)
[2022-05-22] MEDS: CRANBERRY D MANNOSE JT SCH (09:40)
[2022-05-22] MEDS: TOPIRAMATE 50 MG JT SCH ×2 (09:40→21:36)
[2022-05-22] MEDS: METOPROLOL TARTRATE 25 MG TABLET JT SCH ×2 (09:40→21:36)
[2022-05-22] MEDS: HYDROCODONE/APAP 5/325MG TABLET JT SCH (09:40)
[2022-05-22] MEDS: Z GUARD REMEDY 4 OZ OINT TP SCH ×4 (09:40→21:36)
[2022-05-22] MEDS: CHLORHEXIDINE GLUCONATE 15 ML UDC MM SCH ×2 (09:40→21:36)
[2022-05-22] MEDS: LEVETIRACETAM SOL (5 ML) 100 MG/ML UDC JT SCH ×2 (09:40→21:35)
[2022-05-22] MEDS: CITRIC ACID/SODIUM CITRATE (BICITRA)15 ML UDC JT SCH ×4 (09:40→21:35)
[2022-05-22 12:40] VITALS: BP 127/80
[2022-05-22 18:56] LABS: BILIRUBIN,URINE NEGATIVE (NEGATIVE); COLOR,URINE YELLOW (YELLOW); LEUKOCYTE ESTERASE ,URINE NEGATIVE (NEGATIVE); NITRITE, URINE NEGATIVE (NEGATIVE); PH,URINE 8.5 (5.0-8.0); PROTEIN,URINE TRACE mg/dl (NEGATIVE); UGLUCOSE NEGATIVE (NEGATIVE); UROBILINOGEN,URINE 0.2 EU/dL (0.2)
[2022-05-22 19:32] LABS: BACTERIA,URINE Moderate /HPF (None Seen); RBC,URINE 21-50 /HPF (0-2); SQUAMOUS EPITHELIAL CELL,UR Few /HPF (None Seen)
[2022-05-22 19:33] LABS: URINE AMORPHOUS URATE Moderate /HPF (None Seen)
[2022-05-22 20:00] VITALS: BP 115/77
[2022-05-22] MEDS: SENNOSIDES 8.6 MG TABLET JT SCH (21:36)
[2022-05-22] MEDS: MULTIVIT W/MINERALS 1 TAB TABLET JT SCH (21:36)
[2022-05-23] MEDS: ERYTHROMYCIN ETHYLSUCCINATE 200 MG/5 ML SUSPENSION JT SCH ×4 (00:20→17:24)
[2022-05-23] MEDS: METOCLOPRAMIDE HCL 10 MG/10 ML UDC JT SCH ×4 (00:20→17:24)
[2022-05-23] MEDS: BACLOFEN (10 MG) 10 MG TABLET JT SCH ×4 (00:20→17:24)
[2022-05-23] MEDS: SIMETHICONE SUSP 40 MG/0.6 ML BOTTLE JT SCH ×4 (00:20→17:24)
[2022-05-23] MEDS: ALBUTEROL FS 2.5 MG/3 ML VIAL.NEB NEB SCH ×4 (01:56→19:56)
[2022-05-23] MEDS: IPRATROPIUM NEB FS 0.5 MG/2.5 ML AMPUL.NEB NEB SCH ×4 (01:56→19:56)
[2022-05-23] MEDS: VITAL AF 1.2 1,000 ML BOTTLE GT PRN (04:08)
[2022-05-23 07:15] VITALS: BP 132/80
[2022-05-23 07:27] LABS: CALCIUM, SERUM 8.9 mg/dL (8.5-10.1); CREATININE 0.7 mg/dL (0.6-1.3); POTASSIUM 3.6 mmol/L (3.5-5.1)
[2022-05-23] MEDS: HYDROGEN PEROXIDE 480 ML BOTTLE TP SCH ×2 (08:40→19:56)
[2022-05-23] MEDS: [UNRECOGNIZED DRUG - REMARK] JT SCH (09:06)
[2022-05-23] MEDS: CITRIC ACID/SODIUM CITRATE (BICITRA)15 ML UDC JT SCH ×4 (09:06→21:26)
[2022-05-23] MEDS: TOPIRAMATE 50 MG JT SCH ×2 (09:06→21:26)
[2022-05-23] MEDS: CRANBERRY D MANNOSE JT SCH (09:06)
[2022-05-23] MEDS: FERROUS SULFATE - FOR SA ONLY 330 MG/7.5 ML UDC JT SCH (09:06)
[2022-05-23] MEDS: LEVETIRACETAM SOL (5 ML) 100 MG/ML UDC JT SCH ×2 (09:06→21:26)
[2022-05-23] MEDS: METOPROLOL TARTRATE 25 MG TABLET JT SCH ×2 (09:06→21:26)
[2022-05-23] MEDS: TIZANIDINE 2MG TABLET JT SCH ×2 (09:06→21:26)
[2022-05-23] MEDS: DOCUSATE SODIUM LIQ 100 MG/10 ML UDC JT SCH ×2 (09:06→17:24)
[2022-05-23] MEDS: OMEPRAZOLE 20 MG CAPSULE.DR JT SCH ×2 (09:07→21:26)
[2022-05-23] MEDS: HYDROCODONE/APAP 5/325MG TABLET JT SCH (09:07)
[2022-05-23] MEDS: CHLORHEXIDINE GLUCONATE 15 ML UDC MM SCH ×2 (09:07→21:26)
[2022-05-23] MEDS: Z GUARD REMEDY 4 OZ OINT TP SCH ×4 (09:07→21:27)
[2022-05-23 12:07] VITALS: BP 105/73
[2022-05-23 19:10] VITALS: BP 123/92
[2022-05-23] MEDS: SENNOSIDES 8.6 MG TABLET JT SCH (21:27)
[2022-05-23] MEDS: MULTIVIT W/MINERALS 1 TAB TABLET JT SCH (21:27)
[2022-05-23 23:30] VITALS: BP 107/70
[2022-05-24] MEDS: ERYTHROMYCIN ETHYLSUCCINATE 200 MG/5 ML SUSPENSION JT SCH ×4 (00:23→17:05)
[2022-05-24] MEDS: SIMETHICONE SUSP 40 MG/0.6 ML BOTTLE JT SCH ×4 (00:23→17:05)
[2022-05-24] MEDS: METOCLOPRAMIDE HCL 10 MG/10 ML UDC JT SCH ×4 (00:23→17:05)
[2022-05-24] MEDS: BACLOFEN (10 MG) 10 MG TABLET JT SCH ×4 (00:23→17:05)
[2022-05-24] MEDS: ALBUTEROL FS 2.5 MG/3 ML VIAL.NEB NEB SCH ×4 (01:49→19:49)
[2022-05-24] MEDS: IPRATROPIUM NEB FS 0.5 MG/2.5 ML AMPUL.NEB NEB SCH ×4 (01:49→19:49)
[2022-05-24] MEDS: VITAL AF 1.2 1,000 ML BOTTLE GT PRN (06:44)
[2022-05-24 07:34] VITALS: BP 107/70
[2022-05-24] MEDS: HYDROGEN PEROXIDE 480 ML BOTTLE TP SCH ×2 (09:24→19:49)
[2022-05-24] MEDS: CRANBERRY D MANNOSE JT SCH (09:44)
[2022-05-24] MEDS: CITRIC ACID/SODIUM CITRATE (BICITRA)15 ML UDC JT SCH ×4 (09:44→21:00)
[2022-05-24] MEDS: LEVETIRACETAM SOL (5 ML) 100 MG/ML UDC JT SCH ×2 (09:44→21:00)
[2022-05-24] MEDS: FERROUS SULFATE - FOR SA ONLY 330 MG/7.5 ML UDC JT SCH (09:44)
[2022-05-24] MEDS: DOCUSATE SODIUM LIQ 100 MG/10 ML UDC JT SCH ×2 (09:44→17:05)
[2022-05-24] MEDS: TIZANIDINE 2MG TABLET JT SCH ×2 (09:45→21:00)
[2022-05-24] MEDS: [UNRECOGNIZED DRUG - REMARK] JT SCH (09:45)
[2022-05-24] MEDS: METOPROLOL TARTRATE 25 MG TABLET JT SCH ×2 (09:45→21:00)
[2022-05-24] MEDS: TOPIRAMATE 50 MG JT SCH ×2 (09:45→21:00)
[2022-05-24] MEDS: CHLORHEXIDINE GLUCONATE 15 ML UDC MM SCH ×2 (09:45→21:01)
[2022-05-24] MEDS: HYDROCODONE/APAP 5/325MG TABLET JT SCH (09:45)
[2022-05-24] MEDS: OMEPRAZOLE 20 MG CAPSULE.DR JT SCH ×2 (09:45→21:00)
[2022-05-24] MEDS: Z GUARD REMEDY 4 OZ OINT TP SCH ×4 (09:46→21:01)
[2022-05-24 12:09] VITALS: BP 111/70
[2022-05-24 19:15] VITALS: BP 127/79
[2022-05-24] MEDS: SENNOSIDES 8.6 MG TABLET JT SCH (21:01)
[2022-05-24] MEDS: MULTIVIT W/MINERALS 1 TAB TABLET JT SCH (21:01)
[2022-05-25 00:15] VITALS: BP 124/76
[2022-05-25] MEDS: SIMETHICONE SUSP 40 MG/0.6 ML BOTTLE JT SCH ×4 (00:15→17:06)
[2022-05-25] MEDS: ERYTHROMYCIN ETHYLSUCCINATE 200 MG/5 ML SUSPENSION JT SCH ×4 (00:15→17:06)
[2022-05-25] MEDS: METOCLOPRAMIDE HCL 10 MG/10 ML UDC JT SCH ×4 (00:15→17:06)
[2022-05-25] MEDS: BACLOFEN (10 MG) 10 MG TABLET JT SCH ×4 (00:15→17:06)
[2022-05-25] MEDS: VITAL AF 1.2 1,000 ML BOTTLE GT PRN (01:02)
[2022-05-25] MEDS: IPRATROPIUM NEB FS 0.5 MG/2.5 ML AMPUL.NEB NEB SCH ×4 (01:52→20:12)
[2022-05-25] MEDS: ALBUTEROL FS 2.5 MG/3 ML VIAL.NEB NEB SCH ×4 (01:52→20:12)
[2022-05-25 07:17] VITALS: BP 127/87
[2022-05-25] MEDS: FERROUS SULFATE - FOR SA ONLY 330 MG/7.5 ML UDC JT SCH (08:58)
[2022-05-25] MEDS: CRANBERRY D MANNOSE JT SCH (08:58)
[2022-05-25] MEDS: LEVETIRACETAM SOL (5 ML) 100 MG/ML UDC JT SCH ×2 (08:58→21:01)
[2022-05-25] MEDS: DOCUSATE SODIUM LIQ 100 MG/10 ML UDC JT SCH ×2 (08:58→16:56)
[2022-05-25] MEDS: CITRIC ACID/SODIUM CITRATE (BICITRA)15 ML UDC JT SCH ×4 (08:58→21:01)
[2022-05-25] MEDS: HYDROCODONE/APAP 5/325MG TABLET JT SCH (09:00)
[2022-05-25] MEDS: Z GUARD REMEDY 4 OZ OINT TP SCH ×4 (09:00→21:02)
[2022-05-25] MEDS: [UNRECOGNIZED DRUG - REMARK] JT SCH (09:00)
[2022-05-25] MEDS: CHLORHEXIDINE GLUCONATE 15 ML UDC MM SCH ×2 (09:00→21:02)
[2022-05-25] MEDS: TOPIRAMATE 50 MG JT SCH ×2 (09:00→21:02)
[2022-05-25] MEDS: METOPROLOL TARTRATE 25 MG TABLET JT SCH ×2 (09:00→21:01)
[2022-05-25] MEDS: OMEPRAZOLE 20 MG CAPSULE.DR JT SCH ×2 (09:00→21:02)
[2022-05-25] MEDS: TIZANIDINE 2MG TABLET JT SCH ×2 (09:00→21:02)
[2022-05-25] MEDS: HYDROGEN PEROXIDE 480 ML BOTTLE TP SCH ×2 (09:56→21:39)
[2022-05-25 11:58] VITALS: BP 111/68
[2022-05-25 19:49] VITALS: BP 151/78
[2022-05-25] MEDS: SENNOSIDES 8.6 MG TABLET JT SCH (21:02)
[2022-05-25] MEDS: MULTIVIT W/MINERALS 1 TAB TABLET JT SCH (21:02)
[2022-05-26] MEDS: ERYTHROMYCIN ETHYLSUCCINATE 200 MG/5 ML SUSPENSION JT SCH ×4 (00:12→17:26)
[2022-05-26] MEDS: METOCLOPRAMIDE HCL 10 MG/10 ML UDC JT SCH ×4 (00:12→17:26)
[2022-05-26] MEDS: BACLOFEN (10 MG) 10 MG TABLET JT SCH ×4 (00:12→17:26)
[2022-05-26] MEDS: SIMETHICONE SUSP 40 MG/0.6 ML BOTTLE JT SCH ×4 (00:12→17:26)
[2022-05-26 00:13] VITALS: BP 124/80
[2022-05-26] MEDS: VITAL AF 1.2 1,000 ML BOTTLE GT PRN (01:11)
[2022-05-26] MEDS: IPRATROPIUM NEB FS 0.5 MG/2.5 ML AMPUL.NEB NEB SCH ×4 (01:51→20:05)
[2022-05-26] MEDS: ALBUTEROL FS 2.5 MG/3 ML VIAL.NEB NEB SCH ×4 (01:51→20:05)
[2022-05-26 07:54] VITALS: BP 123/96
[2022-05-26] MEDS: HYDROGEN PEROXIDE 480 ML BOTTLE TP SCH ×2 (08:17→21:37)
[2022-05-26] MEDS: CITRIC ACID/SODIUM CITRATE (BICITRA)15 ML UDC JT SCH ×4 (09:10→20:45)
[2022-05-26] MEDS: DOCUSATE SODIUM LIQ 100 MG/10 ML UDC JT SCH ×2 (09:11→17:26)
[2022-05-26] MEDS: FERROUS SULFATE - FOR SA ONLY 330 MG/7.5 ML UDC JT SCH (09:14)
[2022-05-26] MEDS: CRANBERRY D MANNOSE JT SCH (09:14)
[2022-05-26] MEDS: LEVETIRACETAM SOL (5 ML) 100 MG/ML UDC JT SCH ×2 (09:15→20:45)
[2022-05-26] MEDS: METOPROLOL TARTRATE 25 MG TABLET JT SCH ×2 (09:15→20:46)
[2022-05-26] MEDS: HYDROCODONE/APAP 5/325MG TABLET JT SCH (09:16)
[2022-05-26] MEDS: CHLORHEXIDINE GLUCONATE 15 ML UDC MM SCH ×2 (09:16→20:46)
[2022-05-26] MEDS: [UNRECOGNIZED DRUG - REMARK] JT SCH (09:16)
[2022-05-26] MEDS: Z GUARD REMEDY 4 OZ OINT TP SCH ×4 (09:16→20:46)
[2022-05-26] MEDS: TIZANIDINE 2MG TABLET JT SCH ×2 (09:16→20:46)
[2022-05-26] MEDS: TOPIRAMATE 50 MG JT SCH ×2 (09:16→20:46)
[2022-05-26] MEDS: OMEPRAZOLE 20 MG CAPSULE.DR JT SCH ×2 (09:16→20:46)
[2022-05-26 20:05] VITALS: BP 131/82
[2022-05-26] MEDS: SENNOSIDES 8.6 MG TABLET JT SCH (21:09)
[2022-05-26] MEDS: MULTIVIT W/MINERALS 1 TAB TABLET JT SCH (21:09)
[2022-05-27] MEDS: METOCLOPRAMIDE HCL 10 MG/10 ML UDC JT SCH ×4 (00:34→18:02)
[2022-05-27] MEDS: BACLOFEN (10 MG) 10 MG TABLET JT SCH ×4 (00:34→18:02)
[2022-05-27] MEDS: SIMETHICONE SUSP 40 MG/0.6 ML BOTTLE JT SCH ×4 (00:34→18:02)
[2022-05-27] MEDS: ERYTHROMYCIN ETHYLSUCCINATE 200 MG/5 ML SUSPENSION JT SCH ×4 (00:34→18:02)
[2022-05-27] MEDS: IPRATROPIUM NEB FS 0.5 MG/2.5 ML AMPUL.NEB NEB SCH ×4 (02:13→20:11)
[2022-05-27] MEDS: ALBUTEROL FS 2.5 MG/3 ML VIAL.NEB NEB SCH ×4 (02:13→20:11)
[2022-05-27 07:36] VITALS: BP 119/76
[2022-05-27 07:51] VITALS: BP 104/71
[2022-05-27] MEDS: DOCUSATE SODIUM LIQ 100 MG/10 ML UDC JT SCH ×2 (09:03→16:55)
[2022-05-27] MEDS: CITRIC ACID/SODIUM CITRATE (BICITRA)15 ML UDC JT SCH ×4 (09:03→20:48)
[2022-05-27] MEDS: LEVETIRACETAM SOL (5 ML) 100 MG/ML UDC JT SCH ×2 (09:03→20:50)
[2022-05-27] MEDS: CRANBERRY D MANNOSE JT SCH (09:03)
[2022-05-27] MEDS: FERROUS SULFATE - FOR SA ONLY 330 MG/7.5 ML UDC JT SCH (09:03)
[2022-05-27] MEDS: HYDROCODONE/APAP 5/325MG TABLET JT SCH (09:04)
[2022-05-27] MEDS: TOPIRAMATE 50 MG JT SCH ×2 (09:04→20:51)
[2022-05-27] MEDS: [UNRECOGNIZED DRUG - REMARK] JT SCH (09:04)
[2022-05-27] MEDS: METOPROLOL TARTRATE 25 MG TABLET JT SCH ×2 (09:04→20:51)
[2022-05-27] MEDS: TIZANIDINE 2MG TABLET JT SCH ×2 (09:04→20:51)
[2022-05-27] MEDS: OMEPRAZOLE 20 MG CAPSULE.DR JT SCH ×2 (09:04→20:52)
[2022-05-27] MEDS: Z GUARD REMEDY 4 OZ OINT TP SCH ×4 (09:05→20:52)
[2022-05-27] MEDS: CHLORHEXIDINE GLUCONATE 15 ML UDC MM SCH ×2 (09:05→20:52)
[2022-05-27] MEDS: HYDROGEN PEROXIDE 480 ML BOTTLE TP SCH ×2 (09:50→21:26)
[2022-05-27 11:55] VITALS: BP 115/72
[2022-05-27] MEDS: VITAL AF 1.2 1,000 ML BOTTLE GT PRN (18:17)
[2022-05-27 19:58] VITALS: BP 115/75
[2022-05-27] MEDS: MULTIVIT W/MINERALS 1 TAB TABLET JT SCH (21:37)
[2022-05-27] MEDS: SENNOSIDES 8.6 MG TABLET JT SCH (21:37)
[2022-05-28] MEDS: ERYTHROMYCIN ETHYLSUCCINATE 200 MG/5 ML SUSPENSION JT SCH ×5 (00:36→23:34)
[2022-05-28] MEDS: METOCLOPRAMIDE HCL 10 MG/10 ML UDC JT SCH ×5 (00:49→23:34)
[2022-05-28] MEDS: SIMETHICONE SUSP 40 MG/0.6 ML BOTTLE JT SCH ×5 (00:49→23:34)
[2022-05-28] MEDS: BACLOFEN (10 MG) 10 MG TABLET JT SCH ×5 (00:49→23:34)
[2022-05-28] MEDS: ALBUTEROL FS 2.5 MG/3 ML VIAL.NEB NEB SCH ×4 (01:39→19:43)
[2022-05-28] MEDS: IPRATROPIUM NEB FS 0.5 MG/2.5 ML AMPUL.NEB NEB SCH ×4 (01:39→19:43)
[2022-05-28 07:19] VITALS: BP 137/93
[2022-05-28] MEDS: HYDROGEN PEROXIDE 480 ML BOTTLE TP SCH ×2 (09:00→21:07)
[2022-05-28] MEDS: CRANBERRY D MANNOSE JT SCH (09:16)
[2022-05-28] MEDS: LEVETIRACETAM SOL (5 ML) 100 MG/ML UDC JT SCH ×2 (09:16→21:37)
[2022-05-28] MEDS: DOCUSATE SODIUM LIQ 100 MG/10 ML UDC JT SCH ×2 (09:16→17:00)
[2022-05-28] MEDS: FERROUS SULFATE - FOR SA ONLY 330 MG/7.5 ML UDC JT SCH (09:16)
[2022-05-28] MEDS: CITRIC ACID/SODIUM CITRATE (BICITRA)15 ML UDC JT SCH ×4 (09:16→21:37)
[2022-05-28] MEDS: [UNRECOGNIZED DRUG - REMARK] JT SCH (09:17)
[2022-05-28] MEDS: TOPIRAMATE 50 MG JT SCH ×2 (09:17→21:47)
[2022-05-28] MEDS: METOPROLOL TARTRATE 25 MG TABLET JT SCH ×2 (09:17→21:47)
[2022-05-28] MEDS: OMEPRAZOLE 20 MG CAPSULE.DR JT SCH ×2 (09:17→21:48)
[2022-05-28] MEDS: TIZANIDINE 2MG TABLET JT SCH ×2 (09:17→21:47)
[2022-05-28] MEDS: HYDROCODONE/APAP 5/325MG TABLET JT SCH (09:17)
[2022-05-28] MEDS: CHLORHEXIDINE GLUCONATE 15 ML UDC MM SCH ×2 (09:17→21:48)
[2022-05-28] MEDS: Z GUARD REMEDY 4 OZ OINT TP SCH ×4 (09:17→21:48)
[2022-05-28 11:22] VITALS: BP 128/82
[2022-05-28 19:15] VITALS: BP 131/87
[2022-05-28] MEDS: SENNOSIDES 8.6 MG TABLET JT SCH (21:48)
[2022-05-28] MEDS: MULTIVIT W/MINERALS 1 TAB TABLET JT SCH (21:48)
[2022-05-29] MEDS: ALBUTEROL FS 2.5 MG/3 ML VIAL.NEB NEB SCH ×4 (01:37→19:24)
[2022-05-29] MEDS: IPRATROPIUM NEB FS 0.5 MG/2.5 ML AMPUL.NEB NEB SCH ×4 (01:39→19:24)
[2022-05-29] MEDS: SIMETHICONE SUSP 40 MG/0.6 ML BOTTLE JT SCH ×4 (05:48→23:11)
[2022-05-29] MEDS: BACLOFEN (10 MG) 10 MG TABLET JT SCH ×4 (05:48→23:11)
[2022-05-29] MEDS: ERYTHROMYCIN ETHYLSUCCINATE 200 MG/5 ML SUSPENSION JT SCH ×4 (05:48→23:11)
[2022-05-29] MEDS: METOCLOPRAMIDE HCL 10 MG/10 ML UDC JT SCH ×4 (05:48→23:11)
[2022-05-29 07:51] VITALS: BP 133/83
[2022-05-29] MEDS: HYDROGEN PEROXIDE 480 ML BOTTLE TP SCH ×2 (08:46→19:24)
[2022-05-29] MEDS: CRANBERRY D MANNOSE JT SCH (09:09)
[2022-05-29] MEDS: DOCUSATE SODIUM LIQ 100 MG/10 ML UDC JT SCH ×2 (09:09→17:56)
[2022-05-29] MEDS: LEVETIRACETAM SOL (5 ML) 100 MG/ML UDC JT SCH ×2 (09:09→21:28)
[2022-05-29] MEDS: TOPIRAMATE 50 MG JT SCH ×2 (09:09→21:28)
[2022-05-29] MEDS: METOPROLOL TARTRATE 25 MG TABLET JT SCH ×2 (09:09→21:28)
[2022-05-29] MEDS: FERROUS SULFATE - FOR SA ONLY 330 MG/7.5 ML UDC JT SCH (09:09)
[2022-05-29] MEDS: HYDROCODONE/APAP 5/325MG TABLET JT SCH (09:09)
[2022-05-29] MEDS: Z GUARD REMEDY 4 OZ OINT TP SCH ×4 (09:09→21:28)
[2022-05-29] MEDS: CHLORHEXIDINE GLUCONATE 15 ML UDC MM SCH ×2 (09:09→21:28)
[2022-05-29] MEDS: CITRIC ACID/SODIUM CITRATE (BICITRA)15 ML UDC JT SCH ×4 (09:09→21:28)
[2022-05-29] MEDS: [UNRECOGNIZED DRUG - REMARK] JT SCH (09:09)
[2022-05-29] MEDS: OMEPRAZOLE 20 MG CAPSULE.DR JT SCH ×2 (09:09→21:28)
[2022-05-29] MEDS: TIZANIDINE 2MG TABLET JT SCH ×2 (09:09→21:28)
[2022-05-29] MEDS: VITAL AF 1.2 1,000 ML BOTTLE GT PRN (13:01)
[2022-05-29 13:34] VITALS: BP 119/78
[2022-05-29 19:02] VITALS: BP 122/76
[2022-05-29] MEDS: MULTIVIT W/MINERALS 1 TAB TABLET JT SCH (21:28)
[2022-05-29] MEDS: SENNOSIDES 8.6 MG TABLET JT SCH (21:28)
[2022-05-30] MEDS: IPRATROPIUM NEB FS 0.5 MG/2.5 ML AMPUL.NEB NEB SCH ×4 (00:41→20:18)
[2022-05-30] MEDS: ALBUTEROL FS 2.5 MG/3 ML VIAL.NEB NEB SCH ×4 (00:41→20:18)
[2022-05-30] MEDS: ERYTHROMYCIN ETHYLSUCCINATE 200 MG/5 ML SUSPENSION JT SCH ×4 (05:25→23:09)
[2022-05-30] MEDS: SIMETHICONE SUSP 40 MG/0.6 ML BOTTLE JT SCH ×4 (05:25→23:09)
[2022-05-30] MEDS: BACLOFEN (10 MG) 10 MG TABLET JT SCH ×4 (05:25→23:09)
[2022-05-30] MEDS: METOCLOPRAMIDE HCL 10 MG/10 ML UDC JT SCH ×4 (05:25→23:09)
[2022-05-30] MEDS: VITAL AF 1.2 1,000 ML BOTTLE GT PRN (05:44)
[2022-05-30 07:08] VITALS: BP 102/61
[2022-05-30] MEDS: CITRIC ACID/SODIUM CITRATE (BICITRA)15 ML UDC JT SCH ×4 (08:56→21:16)
[2022-05-30] MEDS: CHLORHEXIDINE GLUCONATE 15 ML UDC MM SCH ×2 (08:57→21:17)
[2022-05-30] MEDS: [UNRECOGNIZED DRUG - REMARK] JT SCH (08:57)
[2022-05-30] MEDS: METOPROLOL TARTRATE 25 MG TABLET JT SCH ×2 (08:57→21:16)
[2022-05-30] MEDS: TOPIRAMATE 50 MG JT SCH ×2 (08:57→21:17)
[2022-05-30] MEDS: LEVETIRACETAM SOL (5 ML) 100 MG/ML UDC JT SCH ×2 (08:57→21:16)
[2022-05-30] MEDS: FERROUS SULFATE - FOR SA ONLY 330 MG/7.5 ML UDC JT SCH (08:57)
[2022-05-30] MEDS: HYDROCODONE/APAP 5/325MG TABLET JT SCH (08:57)
[2022-05-30] MEDS: OMEPRAZOLE 20 MG CAPSULE.DR JT SCH ×2 (08:57→21:17)
[2022-05-30] MEDS: CRANBERRY D MANNOSE JT SCH (08:57)
[2022-05-30] MEDS: Z GUARD REMEDY 4 OZ OINT TP SCH ×4 (08:57→21:17)
[2022-05-30] MEDS: DOCUSATE SODIUM LIQ 100 MG/10 ML UDC JT SCH ×2 (08:57→17:27)
[2022-05-30] MEDS: HYDROGEN PEROXIDE 480 ML BOTTLE TP SCH ×2 (08:58→20:19)
[2022-05-30] MEDS: TIZANIDINE 2MG TABLET JT SCH ×2 (09:00→21:17)
[2022-05-30 13:48] VITALS: BP 117/88
[2022-05-30 19:25] VITALS: BP 128/80
[2022-05-30] MEDS: MULTIVIT W/MINERALS 1 TAB TABLET JT SCH (21:17)
[2022-05-30] MEDS: SENNOSIDES 8.6 MG TABLET JT SCH (21:17)
[2022-05-31 00:06] VITALS: BP 127/77
[2022-05-31] MEDS: ALBUTEROL FS 2.5 MG/3 ML VIAL.NEB NEB SCH ×4 (01:51→19:09)
[2022-05-31] MEDS: IPRATROPIUM NEB FS 0.5 MG/2.5 ML AMPUL.NEB NEB SCH ×4 (01:51→19:09)
[2022-05-31] MEDS: BACLOFEN (10 MG) 10 MG TABLET JT SCH ×4 (05:44→23:11)
[2022-05-31] MEDS: METOCLOPRAMIDE HCL 10 MG/10 ML UDC JT SCH ×4 (05:44→23:11)
[2022-05-31] MEDS: ERYTHROMYCIN ETHYLSUCCINATE 200 MG/5 ML SUSPENSION JT SCH ×4 (05:44→23:11)
[2022-05-31] MEDS: SIMETHICONE SUSP 40 MG/0.6 ML BOTTLE JT SCH ×4 (05:44→23:11)
[2022-05-31 07:50] VITALS: BP 118/65
[2022-05-31] MEDS: FERROUS SULFATE - FOR SA ONLY 330 MG/7.5 ML UDC JT SCH (09:40)
[2022-05-31] MEDS: CRANBERRY D MANNOSE JT SCH (09:40)
[2022-05-31] MEDS: DOCUSATE SODIUM LIQ 100 MG/10 ML UDC JT SCH ×2 (09:40→17:53)
[2022-05-31] MEDS: LEVETIRACETAM SOL (5 ML) 100 MG/ML UDC JT SCH ×2 (09:40→20:30)
[2022-05-31] MEDS: TIZANIDINE 2MG TABLET JT SCH ×2 (09:42→20:30)
[2022-05-31] MEDS: Z GUARD REMEDY 4 OZ OINT TP SCH ×4 (09:42→20:30)
[2022-05-31] MEDS: OMEPRAZOLE 20 MG CAPSULE.DR JT SCH ×2 (09:42→20:30)
[2022-05-31] MEDS: [UNRECOGNIZED DRUG - REMARK] JT SCH (09:42)
[2022-05-31] MEDS: CHLORHEXIDINE GLUCONATE 15 ML UDC MM SCH ×2 (09:42→20:30)
[2022-05-31] MEDS: HYDROCODONE/APAP 5/325MG TABLET JT SCH (09:42)
[2022-05-31] MEDS: TOPIRAMATE 50 MG JT SCH ×2 (09:42→20:30)
[2022-05-31] MEDS: METOPROLOL TARTRATE 25 MG TABLET JT SCH ×2 (09:42→20:30)
[2022-05-31] MEDS: CITRIC ACID/SODIUM CITRATE (BICITRA)15 ML UDC JT SCH ×4 (09:46→20:30)
[2022-05-31] MEDS: HYDROGEN PEROXIDE 480 ML BOTTLE TP SCH ×2 (09:53→21:00)
[2022-05-31] MEDS: VITAL AF 1.2 1,000 ML BOTTLE GT PRN (12:43)
[2022-05-31 19:35] VITALS: BP 129/73
[2022-05-31] MEDS: SENNOSIDES 8.6 MG TABLET JT SCH (21:03)
[2022-05-31] MEDS: MULTIVIT W/MINERALS 1 TAB TABLET JT SCH (21:03)
[2022-05-31 23:57] VITALS: BP 125/73
[2022-06-01] MEDS: IPRATROPIUM NEB FS 0.5 MG/2.5 ML AMPUL.NEB NEB SCH ×4 (01:30→19:32)
[2022-06-01] MEDS: ALBUTEROL FS 2.5 MG/3 ML VIAL.NEB NEB SCH ×4 (01:30→19:32)
[2022-06-01] MEDS: METOCLOPRAMIDE HCL 10 MG/10 ML UDC JT SCH ×4 (05:30→23:50)
[2022-06-01] MEDS: SIMETHICONE SUSP 40 MG/0.6 ML BOTTLE JT SCH ×4 (05:30→23:50)
[2022-06-01] MEDS: ERYTHROMYCIN ETHYLSUCCINATE 200 MG/5 ML SUSPENSION JT SCH ×4 (05:30→23:50)
[2022-06-01] MEDS: BACLOFEN (10 MG) 10 MG TABLET JT SCH ×4 (05:30→23:50)
[2022-06-01 07:36] VITALS: BP 129/88
[2022-06-01] MEDS: CITRIC ACID/SODIUM CITRATE (BICITRA)15 ML UDC JT SCH ×4 (08:19→20:18)
[2022-06-01] MEDS: CRANBERRY D MANNOSE JT SCH (08:19)
[2022-06-01] MEDS: DOCUSATE SODIUM LIQ 100 MG/10 ML UDC JT SCH ×2 (08:19→17:10)
[2022-06-01] MEDS: FERROUS SULFATE - FOR SA ONLY 330 MG/7.5 ML UDC JT SCH (08:19)
[2022-06-01] MEDS: LEVETIRACETAM SOL (5 ML) 100 MG/ML UDC JT SCH ×2 (08:19→20:18)
[2022-06-01] MEDS: HYDROCODONE/APAP 5/325MG TABLET JT SCH (08:20)
[2022-06-01] MEDS: TOPIRAMATE 50 MG JT SCH ×2 (08:20→20:18)
[2022-06-01] MEDS: TIZANIDINE 2MG TABLET JT SCH ×2 (08:20→20:18)
[2022-06-01] MEDS: CHLORHEXIDINE GLUCONATE 15 ML UDC MM SCH ×2 (08:20→20:18)
[2022-06-01] MEDS: [UNRECOGNIZED DRUG - REMARK] JT SCH (08:20)
[2022-06-01] MEDS: OMEPRAZOLE 20 MG CAPSULE.DR JT SCH ×2 (08:20→20:18)
[2022-06-01] MEDS: METOPROLOL TARTRATE 25 MG TABLET JT SCH ×2 (08:20→20:18)
[2022-06-01] MEDS: Z GUARD REMEDY 4 OZ OINT TP SCH ×4 (08:21→20:19)
[2022-06-01] MEDS: VITAL AF 1.2 1,000 ML BOTTLE GT PRN (08:47)
[2022-06-01] MEDS: HYDROGEN PEROXIDE 480 ML BOTTLE TP SCH ×2 (09:35→21:09)
[2022-06-01 13:31] VITALS: BP 119/76
[2022-06-01 19:54] VITALS: BP 117/72
[2022-06-01] MEDS: MULTIVIT W/MINERALS 1 TAB TABLET JT SCH (21:18)
[2022-06-01] MEDS: SENNOSIDES 8.6 MG TABLET JT SCH (21:18)
[2022-06-02] MEDS: IPRATROPIUM NEB FS 0.5 MG/2.5 ML AMPUL.NEB NEB SCH ×4 (01:43→19:54)
[2022-06-02] MEDS: ALBUTEROL FS 2.5 MG/3 ML VIAL.NEB NEB SCH ×4 (01:43→19:54)
[2022-06-02] MEDS: METOCLOPRAMIDE HCL 10 MG/10 ML UDC JT SCH ×3 (05:27→17:33)
[2022-06-02] MEDS: BACLOFEN (10 MG) 10 MG TABLET JT SCH ×3 (05:27→17:33)
[2022-06-02] MEDS: VITAL AF 1.2 1,000 ML BOTTLE GT PRN (05:27)
[2022-06-02] MEDS: ERYTHROMYCIN ETHYLSUCCINATE 200 MG/5 ML SUSPENSION JT SCH ×3 (05:27→17:33)
[2022-06-02] MEDS: SIMETHICONE SUSP 40 MG/0.6 ML BOTTLE JT SCH ×3 (05:27→17:33)
[2022-06-02 07:51] VITALS: BP 135/96
[2022-06-02] MEDS: HYDROGEN PEROXIDE 480 ML BOTTLE TP SCH ×2 (08:14→21:05)
[2022-06-02] MEDS: CITRIC ACID/SODIUM CITRATE (BICITRA)15 ML UDC JT SCH ×4 (09:14→20:29)
[2022-06-02] MEDS: DOCUSATE SODIUM LIQ 100 MG/10 ML UDC JT SCH ×2 (09:14→17:32)
[2022-06-02] MEDS: TIZANIDINE 2MG TABLET JT SCH ×2 (09:14→20:29)
[2022-06-02] MEDS: FERROUS SULFATE - FOR SA ONLY 330 MG/7.5 ML UDC JT SCH (09:14)
[2022-06-02] MEDS: LEVETIRACETAM SOL (5 ML) 100 MG/ML UDC JT SCH ×2 (09:14→20:29)
[2022-06-02] MEDS: CRANBERRY D MANNOSE JT SCH (09:14)
[2022-06-02] MEDS: METOPROLOL TARTRATE 25 MG TABLET JT SCH ×2 (09:14→20:29)
[2022-06-02] MEDS: TOPIRAMATE 50 MG JT SCH ×2 (09:14→20:29)
[2022-06-02] MEDS: [UNRECOGNIZED DRUG - REMARK] JT SCH (09:14)
[2022-06-02] MEDS: HYDROCODONE/APAP 5/325MG TABLET JT SCH (09:15)
[2022-06-02] MEDS: CHLORHEXIDINE GLUCONATE 15 ML UDC MM SCH ×2 (09:15→20:30)
[2022-06-02] MEDS: OMEPRAZOLE 20 MG CAPSULE.DR JT SCH ×2 (09:15→20:30)
[2022-06-02] MEDS: Z GUARD REMEDY 4 OZ OINT TP SCH ×4 (09:15→20:30)
[2022-06-02 19:21] VITALS: BP 122/78
[2022-06-02] MEDS: MULTIVIT W/MINERALS 1 TAB TABLET JT SCH (21:19)
[2022-06-02] MEDS: SENNOSIDES 8.6 MG TABLET JT SCH (21:19)
[2022-06-03] MEDS: ERYTHROMYCIN ETHYLSUCCINATE 200 MG/5 ML SUSPENSION JT SCH ×4 (00:17→17:21)
[2022-06-03] MEDS: BACLOFEN (10 MG) 10 MG TABLET JT SCH ×4 (00:21→17:21)
[2022-06-03] MEDS: METOCLOPRAMIDE HCL 10 MG/10 ML UDC JT SCH ×4 (00:21→17:21)
[2022-06-03] MEDS: SIMETHICONE SUSP 40 MG/0.6 ML BOTTLE JT SCH ×4 (00:21→17:21)
[2022-06-03] MEDS: ALBUTEROL FS 2.5 MG/3 ML VIAL.NEB NEB SCH ×4 (01:39→19:59)
[2022-06-03] MEDS: IPRATROPIUM NEB FS 0.5 MG/2.5 ML AMPUL.NEB NEB SCH ×4 (01:39→19:59)
[2022-06-03] MEDS: VITAL AF 1.2 1,000 ML BOTTLE GT PRN (04:24)
[2022-06-03 07:27] VITALS: BP 124/75
[2022-06-03] MEDS: FERROUS SULFATE - FOR SA ONLY 330 MG/7.5 ML UDC JT SCH (08:28)
[2022-06-03] MEDS: CRANBERRY D MANNOSE JT SCH (08:28)
[2022-06-03] MEDS: LEVETIRACETAM SOL (5 ML) 100 MG/ML UDC JT SCH ×2 (08:28→20:57)
[2022-06-03] MEDS: DOCUSATE SODIUM LIQ 100 MG/10 ML UDC JT SCH ×2 (08:28→17:20)
[2022-06-03] MEDS: CITRIC ACID/SODIUM CITRATE (BICITRA)15 ML UDC JT SCH ×4 (08:28→20:56)
[2022-06-03] MEDS: TIZANIDINE 2MG TABLET JT SCH ×2 (08:29→20:58)
[2022-06-03] MEDS: TOPIRAMATE 50 MG JT SCH ×2 (08:29→20:58)
[2022-06-03] MEDS: METOPROLOL TARTRATE 25 MG TABLET JT SCH ×2 (08:29→20:58)
[2022-06-03] MEDS: [UNRECOGNIZED DRUG - REMARK] JT SCH (08:29)
[2022-06-03] MEDS: Z GUARD REMEDY 4 OZ OINT TP SCH ×4 (08:30→20:58)
[2022-06-03] MEDS: HYDROCODONE/APAP 5/325MG TABLET JT SCH (08:30)
[2022-06-03] MEDS: OMEPRAZOLE 20 MG CAPSULE.DR JT SCH ×2 (08:30→20:58)
[2022-06-03] MEDS: CHLORHEXIDINE GLUCONATE 15 ML UDC MM SCH ×2 (08:30→20:58)
[2022-06-03] MEDS: HYDROGEN PEROXIDE 480 ML BOTTLE TP SCH ×2 (09:06→21:31)
[2022-06-03 11:41] VITALS: BP 131/76
[2022-06-03 19:44] VITALS: BP 133/87
[2022-06-03] MEDS: MULTIVIT W/MINERALS 1 TAB TABLET JT SCH (22:24)
[2022-06-03] MEDS: SENNOSIDES 8.6 MG TABLET JT SCH (22:24)
[2022-06-04] MEDS: ERYTHROMYCIN ETHYLSUCCINATE 200 MG/5 ML SUSPENSION JT SCH ×5 (00:43→23:10)
[2022-06-04] MEDS: METOCLOPRAMIDE HCL 10 MG/10 ML UDC JT SCH ×5 (00:43→23:10)
[2022-06-04] MEDS: SIMETHICONE SUSP 40 MG/0.6 ML BOTTLE JT SCH ×5 (00:43→23:10)
[2022-06-04] MEDS: BACLOFEN (10 MG) 10 MG TABLET JT SCH ×5 (00:43→23:10)
[2022-06-04] MEDS: ALBUTEROL FS 2.5 MG/3 ML VIAL.NEB NEB SCH ×4 (01:35→19:30)
[2022-06-04] MEDS: IPRATROPIUM NEB FS 0.5 MG/2.5 ML AMPUL.NEB NEB SCH ×4 (01:35→19:30)
[2022-06-04] MEDS: VITAL AF 1.2 1,000 ML BOTTLE GT PRN (05:00)
[2022-06-04 07:26] VITALS: BP 122/75
[2022-06-04] MEDS: FERROUS SULFATE - FOR SA ONLY 330 MG/7.5 ML UDC JT SCH (09:00)
[2022-06-04] MEDS: Z GUARD REMEDY 4 OZ OINT TP SCH ×4 (09:00→20:57)
[2022-06-04] MEDS: METOPROLOL TARTRATE 25 MG TABLET JT SCH ×2 (09:00→20:57)
[2022-06-04] MEDS: LEVETIRACETAM SOL (5 ML) 100 MG/ML UDC JT SCH ×2 (09:00→20:56)
[2022-06-04] MEDS: OMEPRAZOLE 20 MG CAPSULE.DR JT SCH ×2 (09:00→20:57)
[2022-06-04] MEDS: [UNRECOGNIZED DRUG - REMARK] JT SCH (09:00)
[2022-06-04] MEDS: CHLORHEXIDINE GLUCONATE 15 ML UDC MM SCH ×2 (09:00→20:57)
[2022-06-04] MEDS: TOPIRAMATE 50 MG JT SCH ×2 (09:00→20:57)
[2022-06-04] MEDS: TIZANIDINE 2MG TABLET JT SCH ×2 (09:00→20:57)
[2022-06-04] MEDS: HYDROGEN PEROXIDE 480 ML BOTTLE TP SCH ×2 (09:00→21:00)
[2022-06-04] MEDS: HYDROCODONE/APAP 5/325MG TABLET JT SCH (09:00)
[2022-06-04] MEDS: CITRIC ACID/SODIUM CITRATE (BICITRA)15 ML UDC JT SCH ×4 (09:00→20:57)
[2022-06-04] MEDS: CRANBERRY D MANNOSE JT SCH (09:00)
[2022-06-04] MEDS: DOCUSATE SODIUM LIQ 100 MG/10 ML UDC JT SCH ×2 (09:00→17:28)
[2022-06-04 11:17] VITALS: BP 139/76
[2022-06-04 19:15] VITALS: BP 126/76
[2022-06-04] MEDS: MULTIVIT W/MINERALS 1 TAB TABLET JT SCH (21:00)
[2022-06-04] MEDS: SENNOSIDES 8.6 MG TABLET JT SCH (21:00)
[2022-06-05] MEDS: ALBUTEROL FS 2.5 MG/3 ML VIAL.NEB NEB SCH ×4 (01:30→19:57)
[2022-06-05] MEDS: IPRATROPIUM NEB FS 0.5 MG/2.5 ML AMPUL.NEB NEB SCH ×4 (01:30→19:57)
[2022-06-05] MEDS: VITAL AF 1.2 1,000 ML BOTTLE GT PRN (05:22)
[2022-06-05] MEDS: ERYTHROMYCIN ETHYLSUCCINATE 200 MG/5 ML SUSPENSION JT SCH ×4 (05:22→23:24)
[2022-06-05] MEDS: METOCLOPRAMIDE HCL 10 MG/10 ML UDC JT SCH ×4 (05:22→23:24)
[2022-06-05] MEDS: SIMETHICONE SUSP 40 MG/0.6 ML BOTTLE JT SCH ×4 (05:22→23:24)
[2022-06-05] MEDS: BACLOFEN (10 MG) 10 MG TABLET JT SCH ×4 (05:22→23:24)
[2022-06-05 07:55] VITALS: BP 124/70
[2022-06-05] MEDS: METOPROLOL TARTRATE 25 MG TABLET JT SCH ×2 (09:00→21:19)
[2022-06-05] MEDS: FERROUS SULFATE - FOR SA ONLY 330 MG/7.5 ML UDC JT SCH (09:00)
[2022-06-05] MEDS: TOPIRAMATE 50 MG JT SCH ×2 (09:00→21:20)
[2022-06-05] MEDS: OMEPRAZOLE 20 MG CAPSULE.DR JT SCH ×2 (09:00→21:20)
[2022-06-05] MEDS: DOCUSATE SODIUM LIQ 100 MG/10 ML UDC JT SCH ×2 (09:00→17:00)
[2022-06-05] MEDS: CRANBERRY D MANNOSE JT SCH (09:00)
[2022-06-05] MEDS: [UNRECOGNIZED DRUG - REMARK] JT SCH (09:00)
[2022-06-05] MEDS: TIZANIDINE 2MG TABLET JT SCH ×2 (09:00→21:20)
[2022-06-05] MEDS: Z GUARD REMEDY 4 OZ OINT TP SCH ×4 (09:00→21:20)
[2022-06-05] MEDS: LEVETIRACETAM SOL (5 ML) 100 MG/ML UDC JT SCH ×2 (09:00→21:19)
[2022-06-05] MEDS: HYDROCODONE/APAP 5/325MG TABLET JT SCH (09:00)
[2022-06-05] MEDS: CITRIC ACID/SODIUM CITRATE (BICITRA)15 ML UDC JT SCH ×4 (09:00→21:19)
[2022-06-05] MEDS: CHLORHEXIDINE GLUCONATE 15 ML UDC MM SCH ×2 (09:00→21:20)
[2022-06-05] MEDS: HYDROGEN PEROXIDE 480 ML BOTTLE TP SCH ×2 (09:20→19:57)
[2022-06-05 12:17] VITALS: BP 122/66
[2022-06-05] MEDS: ONDANSETRON 4 MG TAB.RAPDIS JT PRN (16:14)
[2022-06-05 20:05] VITALS: BP 121/80
[2022-06-05] MEDS: SENNOSIDES 8.6 MG TABLET JT SCH (21:20)
[2022-06-05] MEDS: MULTIVIT W/MINERALS 1 TAB TABLET JT SCH (21:20)
[2022-06-06 01:02] VITALS: BP 123/78
[2022-06-06] MEDS: IPRATROPIUM NEB FS 0.5 MG/2.5 ML AMPUL.NEB NEB SCH ×4 (02:07→20:10)
[2022-06-06] MEDS: ALBUTEROL FS 2.5 MG/3 ML VIAL.NEB NEB SCH ×4 (02:07→20:10)
[2022-06-06] MEDS: SIMETHICONE SUSP 40 MG/0.6 ML BOTTLE JT SCH ×4 (05:45→23:41)
[2022-06-06] MEDS: ERYTHROMYCIN ETHYLSUCCINATE 200 MG/5 ML SUSPENSION JT SCH ×4 (05:45→23:41)
[2022-06-06] MEDS: METOCLOPRAMIDE HCL 10 MG/10 ML UDC JT SCH ×4 (05:45→23:41)
[2022-06-06] MEDS: BACLOFEN (10 MG) 10 MG TABLET JT SCH ×4 (05:45→23:41)
[2022-06-06] MEDS: VITAL AF 1.2 1,000 ML BOTTLE GT PRN (05:46)
[2022-06-06 08:00] VITALS: BP 131/89
[2022-06-06] MEDS: HYDROGEN PEROXIDE 480 ML BOTTLE TP SCH ×2 (09:00→20:10)
[2022-06-06] MEDS: CITRIC ACID/SODIUM CITRATE (BICITRA)15 ML UDC JT SCH ×4 (09:49→21:36)
[2022-06-06] MEDS: CRANBERRY D MANNOSE JT SCH (09:50)
[2022-06-06] MEDS: FERROUS SULFATE - FOR SA ONLY 330 MG/7.5 ML UDC JT SCH (09:50)
[2022-06-06] MEDS: DOCUSATE SODIUM LIQ 100 MG/10 ML UDC JT SCH ×2 (09:50→17:17)
[2022-06-06] MEDS: LEVETIRACETAM SOL (5 ML) 100 MG/ML UDC JT SCH ×2 (09:51→21:36)
[2022-06-06] MEDS: METOPROLOL TARTRATE 25 MG TABLET JT SCH ×2 (09:52→21:36)
[2022-06-06] MEDS: HYDROCODONE/APAP 5/325MG TABLET JT SCH (09:53)
[2022-06-06] MEDS: TIZANIDINE 2MG TABLET JT SCH ×2 (09:53→21:36)
[2022-06-06] MEDS: TOPIRAMATE 50 MG JT SCH ×2 (09:53→21:36)
[2022-06-06] MEDS: OMEPRAZOLE 20 MG CAPSULE.DR JT SCH ×2 (09:54→21:36)
[2022-06-06] MEDS: Z GUARD REMEDY 4 OZ OINT TP SCH ×4 (09:54→21:36)
[2022-06-06] MEDS: CHLORHEXIDINE GLUCONATE 15 ML UDC MM SCH ×2 (09:54→21:36)
[2022-06-06] MEDS: [UNRECOGNIZED DRUG - REMARK] JT SCH (09:55)
[2022-06-06] MEDS: POLYVINYL ALCOHOL 15 ML BOTTLE EACHEYE PRN (17:22)
[2022-06-06 20:15] VITALS: BP 130/84
[2022-06-06] MEDS: MULTIVIT W/MINERALS 1 TAB TABLET JT SCH (21:36)
[2022-06-06] MEDS: SENNOSIDES 8.6 MG TABLET JT SCH (21:36)
[2022-06-07 01:00] VITALS: BP 124/76
[2022-06-07] MEDS: IPRATROPIUM NEB FS 0.5 MG/2.5 ML AMPUL.NEB NEB SCH ×4 (02:16→19:20)
[2022-06-07] MEDS: ALBUTEROL FS 2.5 MG/3 ML VIAL.NEB NEB SCH ×4 (02:16→19:20)
[2022-06-07] MEDS: ERYTHROMYCIN ETHYLSUCCINATE 200 MG/5 ML SUSPENSION JT SCH ×4 (05:43→23:55)
[2022-06-07] MEDS: BACLOFEN (10 MG) 10 MG TABLET JT SCH ×4 (05:43→23:55)
[2022-06-07] MEDS: METOCLOPRAMIDE HCL 10 MG/10 ML UDC JT SCH ×4 (05:43→23:55)
[2022-06-07] MEDS: SIMETHICONE SUSP 40 MG/0.6 ML BOTTLE JT SCH ×4 (05:43→23:55)
[2022-06-07] MEDS: VITAL AF 1.2 1,000 ML BOTTLE GT PRN (06:12)
[2022-06-07 08:22] VITALS: BP 102/66
[2022-06-07] MEDS: METOPROLOL TARTRATE 25 MG TABLET JT SCH ×2 (09:00→21:24)
[2022-06-07] MEDS: HYDROGEN PEROXIDE 480 ML BOTTLE TP SCH ×2 (09:05→19:20)
[2022-06-07] MEDS: [UNRECOGNIZED DRUG - REMARK] JT SCH (09:42)
[2022-06-07] MEDS: DOCUSATE SODIUM LIQ 100 MG/10 ML UDC JT SCH ×2 (09:42→17:00)
[2022-06-07] MEDS: CRANBERRY D MANNOSE JT SCH (09:42)
[2022-06-07] MEDS: CITRIC ACID/SODIUM CITRATE (BICITRA)15 ML UDC JT SCH ×4 (09:42→21:24)
[2022-06-07] MEDS: FERROUS SULFATE - FOR SA ONLY 330 MG/7.5 ML UDC JT SCH (09:42)
[2022-06-07] MEDS: LEVETIRACETAM SOL (5 ML) 100 MG/ML UDC JT SCH ×2 (09:42→21:24)
[2022-06-07] MEDS: TIZANIDINE 2MG TABLET JT SCH ×2 (09:43→21:24)
[2022-06-07] MEDS: TOPIRAMATE 50 MG JT SCH ×2 (09:44→21:24)
[2022-06-07] MEDS: HYDROCODONE/APAP 5/325MG TABLET JT SCH (09:44)
[2022-06-07] MEDS: Z GUARD REMEDY 4 OZ OINT TP SCH ×4 (09:45→21:24)
[2022-06-07] MEDS: CHLORHEXIDINE GLUCONATE 15 ML UDC MM SCH ×2 (09:45→21:24)
[2022-06-07] MEDS: OMEPRAZOLE 20 MG CAPSULE.DR JT SCH ×2 (09:45→21:24)
[2022-06-07 19:16] VITALS: BP 124/79
[2022-06-07] MEDS: SENNOSIDES 8.6 MG TABLET JT SCH (21:25)
[2022-06-07] MEDS: MULTIVIT W/MINERALS 1 TAB TABLET JT SCH (21:25)
[2022-06-08 00:20] VITALS: BP 117/74
[2022-06-08] MEDS: IPRATROPIUM NEB FS 0.5 MG/2.5 ML AMPUL.NEB NEB SCH ×4 (01:23→19:03)
[2022-06-08] MEDS: ALBUTEROL FS 2.5 MG/3 ML VIAL.NEB NEB SCH ×4 (01:24→19:03)
[2022-06-08] MEDS: METOCLOPRAMIDE HCL 10 MG/10 ML UDC JT SCH ×3 (05:09→17:38)
[2022-06-08] MEDS: BACLOFEN (10 MG) 10 MG TABLET JT SCH ×3 (05:09→17:38)
[2022-06-08] MEDS: SIMETHICONE SUSP 40 MG/0.6 ML BOTTLE JT SCH ×3 (05:09→17:38)
[2022-06-08] MEDS: ERYTHROMYCIN ETHYLSUCCINATE 200 MG/5 ML SUSPENSION JT SCH ×3 (05:09→17:38)
[2022-06-08] MEDS: VITAL AF 1.2 1,000 ML BOTTLE GT PRN (05:10)
[2022-06-08 07:34] VITALS: BP 118/76
[2022-06-08] MEDS: HYDROGEN PEROXIDE 480 ML BOTTLE TP SCH ×2 (08:50→21:39)
[2022-06-08] MEDS: TIZANIDINE 2MG TABLET JT SCH ×2 (09:00→21:22)
[2022-06-08] MEDS: CITRIC ACID/SODIUM CITRATE (BICITRA)15 ML UDC JT SCH ×4 (09:00→21:19)
[2022-06-08] MEDS: FERROUS SULFATE - FOR SA ONLY 330 MG/7.5 ML UDC JT SCH (09:00)
[2022-06-08] MEDS: DOCUSATE SODIUM LIQ 100 MG/10 ML UDC JT SCH ×2 (09:00→16:43)
[2022-06-08] MEDS: Z GUARD REMEDY 4 OZ OINT TP SCH ×4 (09:00→21:22)
[2022-06-08] MEDS: CRANBERRY D MANNOSE JT SCH (09:00)
[2022-06-08] MEDS: TOPIRAMATE 50 MG JT SCH ×2 (09:00→21:22)
[2022-06-08] MEDS: [UNRECOGNIZED DRUG - REMARK] JT SCH (09:00)
[2022-06-08] MEDS: METOPROLOL TARTRATE 25 MG TABLET JT SCH ×2 (09:00→21:22)
[2022-06-08] MEDS: HYDROCODONE/APAP 5/325MG TABLET JT SCH (09:00)
[2022-06-08] MEDS: CHLORHEXIDINE GLUCONATE 15 ML UDC MM SCH ×2 (09:00→21:22)
[2022-06-08] MEDS: OMEPRAZOLE 20 MG CAPSULE.DR JT SCH ×2 (09:00→21:22)
[2022-06-08] MEDS: LEVETIRACETAM SOL (5 ML) 100 MG/ML UDC JT SCH ×2 (09:00→21:19)
[2022-06-08 12:31] VITALS: BP 121/75
[2022-06-08 19:30] VITALS: BP 124/90
[2022-06-08] MEDS: SENNOSIDES 8.6 MG TABLET JT SCH (21:22)
[2022-06-08] MEDS: MULTIVIT W/MINERALS 1 TAB TABLET JT SCH (21:22)
[2022-06-08 23:44] VITALS: BP 113/80
[2022-06-09] MEDS: SIMETHICONE SUSP 40 MG/0.6 ML BOTTLE JT SCH ×4 (00:42→17:19)
[2022-06-09] MEDS: BACLOFEN (10 MG) 10 MG TABLET JT SCH ×4 (00:42→17:19)
[2022-06-09] MEDS: ERYTHROMYCIN ETHYLSUCCINATE 200 MG/5 ML SUSPENSION JT SCH ×4 (00:42→17:19)
[2022-06-09] MEDS: METOCLOPRAMIDE HCL 10 MG/10 ML UDC JT SCH ×4 (00:42→17:19)
[2022-06-09] MEDS: VITAL AF 1.2 1,000 ML BOTTLE GT PRN (01:05)
[2022-06-09] MEDS: IPRATROPIUM NEB FS 0.5 MG/2.5 ML AMPUL.NEB NEB SCH ×4 (01:22→19:06)
[2022-06-09] MEDS: ALBUTEROL FS 2.5 MG/3 ML VIAL.NEB NEB SCH ×4 (01:23→19:06)
[2022-06-09 08:04] VITALS: BP 123/81
[2022-06-09] MEDS: CITRIC ACID/SODIUM CITRATE (BICITRA)15 ML UDC JT SCH ×4 (09:00→20:39)
[2022-06-09] MEDS: CHLORHEXIDINE GLUCONATE 15 ML UDC MM SCH ×2 (09:00→20:40)
[2022-06-09] MEDS: METOPROLOL TARTRATE 25 MG TABLET JT SCH ×2 (09:00→20:39)
[2022-06-09] MEDS: FERROUS SULFATE - FOR SA ONLY 330 MG/7.5 ML UDC JT SCH (09:00)
[2022-06-09] MEDS: HYDROCODONE/APAP 5/325MG TABLET JT SCH (09:00)
[2022-06-09] MEDS: LEVETIRACETAM SOL (5 ML) 100 MG/ML UDC JT SCH ×2 (09:00→20:39)
[2022-06-09] MEDS: Z GUARD REMEDY 4 OZ OINT TP SCH ×4 (09:00→20:40)
[2022-06-09] MEDS: OMEPRAZOLE 20 MG CAPSULE.DR JT SCH ×2 (09:00→20:40)
[2022-06-09] MEDS: CRANBERRY D MANNOSE JT SCH (09:00)
[2022-06-09] MEDS: TIZANIDINE 2MG TABLET JT SCH ×2 (09:00→20:39)
[2022-06-09] MEDS: TOPIRAMATE 50 MG JT SCH ×2 (09:00→20:39)
[2022-06-09] MEDS: DOCUSATE SODIUM LIQ 100 MG/10 ML UDC JT SCH ×2 (09:00→17:19)
[2022-06-09] MEDS: [UNRECOGNIZED DRUG - REMARK] JT SCH (09:00)
[2022-06-09] MEDS: HYDROGEN PEROXIDE 480 ML BOTTLE TP SCH ×2 (09:16→20:40)
[2022-06-09 12:14] VITALS: BP 128/74
[2022-06-09 19:53] VITALS: BP 115/81
[2022-06-09] MEDS: SENNOSIDES 8.6 MG TABLET JT SCH (21:21)
[2022-06-09] MEDS: MULTIVIT W/MINERALS 1 TAB TABLET JT SCH (21:21)
[2022-06-10] MEDS: ERYTHROMYCIN ETHYLSUCCINATE 200 MG/5 ML SUSPENSION JT SCH ×4 (00:02→17:02)
[2022-06-10] MEDS: BACLOFEN (10 MG) 10 MG TABLET JT SCH ×4 (00:02→17:02)
[2022-06-10] MEDS: METOCLOPRAMIDE HCL 10 MG/10 ML UDC JT SCH ×4 (00:02→17:02)
[2022-06-10] MEDS: SIMETHICONE SUSP 40 MG/0.6 ML BOTTLE JT SCH ×4 (00:02→17:02)
[2022-06-10 00:08] VITALS: BP 124/87
[2022-06-10] MEDS: ALBUTEROL FS 2.5 MG/3 ML VIAL.NEB NEB SCH ×4 (01:04→19:56)
[2022-06-10] MEDS: IPRATROPIUM NEB FS 0.5 MG/2.5 ML AMPUL.NEB NEB SCH ×4 (01:04→19:56)
[2022-06-10 07:35] VITALS: BP 135/93
[2022-06-10] MEDS: HYDROGEN PEROXIDE 480 ML BOTTLE TP SCH ×2 (08:20→21:09)
[2022-06-10] MEDS: DOCUSATE SODIUM LIQ 100 MG/10 ML UDC JT SCH ×2 (09:20→16:41)
[2022-06-10] MEDS: FERROUS SULFATE - FOR SA ONLY 330 MG/7.5 ML UDC JT SCH (09:21)
[2022-06-10] MEDS: [UNRECOGNIZED DRUG - REMARK] JT SCH (09:21)
[2022-06-10] MEDS: LEVETIRACETAM SOL (5 ML) 100 MG/ML UDC JT SCH ×2 (09:22→21:53)
[2022-06-10] MEDS: CRANBERRY D MANNOSE JT SCH (09:22)
[2022-06-10] MEDS: Z GUARD REMEDY 4 OZ OINT TP SCH ×4 (09:23→21:54)
[2022-06-10] MEDS: CHLORHEXIDINE GLUCONATE 15 ML UDC MM SCH ×2 (09:23→21:54)
[2022-06-10] MEDS: METOPROLOL TARTRATE 25 MG TABLET JT SCH ×2 (09:24→21:54)
[2022-06-10] MEDS: TOPIRAMATE 50 MG JT SCH ×2 (09:25→21:54)
[2022-06-10] MEDS: TIZANIDINE 2MG TABLET JT SCH ×2 (09:25→21:54)
[2022-06-10] MEDS: OMEPRAZOLE 20 MG CAPSULE.DR JT SCH ×2 (09:26→21:54)
[2022-06-10] MEDS: HYDROCODONE/APAP 5/325MG TABLET JT SCH (09:27)
[2022-06-10] MEDS: CITRIC ACID/SODIUM CITRATE (BICITRA)15 ML UDC JT SCH ×4 (09:29→21:53)
[2022-06-10 11:28] VITALS: BP 129/74
[2022-06-10 19:51] VITALS: BP 135/98
[2022-06-10] MEDS: MULTIVIT W/MINERALS 1 TAB TABLET JT SCH (21:54)
[2022-06-10] MEDS: SENNOSIDES 8.6 MG TABLET JT SCH (21:54)
[2022-06-11] MEDS: BACLOFEN (10 MG) 10 MG TABLET JT SCH ×4 (00:38→17:02)
[2022-06-11] MEDS: METOCLOPRAMIDE HCL 10 MG/10 ML UDC JT SCH ×4 (00:38→17:02)
[2022-06-11] MEDS: SIMETHICONE SUSP 40 MG/0.6 ML BOTTLE JT SCH ×4 (00:38→17:02)
[2022-06-11] MEDS: ERYTHROMYCIN ETHYLSUCCINATE 200 MG/5 ML SUSPENSION JT SCH ×4 (00:38→17:02)
[2022-06-11 00:46] VITALS: BP 116/76
[2022-06-11] MEDS: IPRATROPIUM NEB FS 0.5 MG/2.5 ML AMPUL.NEB NEB SCH ×4 (01:30→20:01)
[2022-06-11] MEDS: ALBUTEROL FS 2.5 MG/3 ML VIAL.NEB NEB SCH ×4 (01:30→20:02)
[2022-06-11 07:25] VITALS: BP 126/77
[2022-06-11] MEDS: HYDROGEN PEROXIDE 480 ML BOTTLE TP SCH ×2 (07:58→21:10)
[2022-06-11] MEDS: CRANBERRY D MANNOSE JT SCH (09:11)
[2022-06-11] MEDS: FERROUS SULFATE - FOR SA ONLY 330 MG/7.5 ML UDC JT SCH (09:11)
[2022-06-11] MEDS: DOCUSATE SODIUM LIQ 100 MG/10 ML UDC JT SCH ×2 (09:11→17:02)
[2022-06-11] MEDS: LEVETIRACETAM SOL (5 ML) 100 MG/ML UDC JT SCH ×2 (09:12→21:10)
[2022-06-11] MEDS: CITRIC ACID/SODIUM CITRATE (BICITRA)15 ML UDC JT SCH ×4 (09:13→21:07)
[2022-06-11] MEDS: [UNRECOGNIZED DRUG - REMARK] JT SCH (09:14)
[2022-06-11] MEDS: METOPROLOL TARTRATE 25 MG TABLET JT SCH ×2 (09:14→21:11)
[2022-06-11] MEDS: OMEPRAZOLE 20 MG CAPSULE.DR JT SCH ×2 (09:15→21:11)
[2022-06-11] MEDS: TOPIRAMATE 50 MG JT SCH ×2 (09:15→21:11)
[2022-06-11] MEDS: TIZANIDINE 2MG TABLET JT SCH ×2 (09:15→21:11)
[2022-06-11] MEDS: CHLORHEXIDINE GLUCONATE 15 ML UDC MM SCH ×2 (09:17→21:11)
[2022-06-11] MEDS: Z GUARD REMEDY 4 OZ OINT TP SCH ×4 (09:17→21:11)
[2022-06-11] MEDS: HYDROCODONE/APAP 5/325MG TABLET JT SCH (09:17)
[2022-06-11 13:27] VITALS: BP 119/79
[2022-06-11] MEDS: VITAL AF 1.2 1,000 ML BOTTLE GT PRN (14:12)
[2022-06-11 19:54] VITALS: BP 116/74
[2022-06-11] MEDS: SENNOSIDES 8.6 MG TABLET JT SCH (21:13)
[2022-06-11] MEDS: MULTIVIT W/MINERALS 1 TAB TABLET JT SCH (21:13)
[2022-06-12] MEDS: IPRATROPIUM NEB FS 0.5 MG/2.5 ML AMPUL.NEB NEB SCH ×4 (01:21→19:34)
[2022-06-12] MEDS: ALBUTEROL FS 2.5 MG/3 ML VIAL.NEB NEB SCH ×4 (01:21→19:34)
[2022-06-12] MEDS: SIMETHICONE SUSP 40 MG/0.6 ML BOTTLE JT SCH ×4 (05:39→17:17)
[2022-06-12] MEDS: BACLOFEN (10 MG) 10 MG TABLET JT SCH ×4 (05:39→17:17)
[2022-06-12] MEDS: ERYTHROMYCIN ETHYLSUCCINATE 200 MG/5 ML SUSPENSION JT SCH ×4 (05:39→17:17)
[2022-06-12] MEDS: METOCLOPRAMIDE HCL 10 MG/10 ML UDC JT SCH ×4 (05:39→17:17)
[2022-06-12 07:10] VITALS: BP 110/76
[2022-06-12] MEDS: HYDROGEN PEROXIDE 480 ML BOTTLE TP SCH ×2 (09:16→19:35)
[2022-06-12] MEDS: CRANBERRY D MANNOSE JT SCH (09:50)
[2022-06-12] MEDS: LEVETIRACETAM SOL (5 ML) 100 MG/ML UDC JT SCH ×2 (09:50→21:19)
[2022-06-12] MEDS: CITRIC ACID/SODIUM CITRATE (BICITRA)15 ML UDC JT SCH ×4 (09:50→21:19)
[2022-06-12] MEDS: FERROUS SULFATE - FOR SA ONLY 330 MG/7.5 ML UDC JT SCH (09:50)
[2022-06-12] MEDS: METOPROLOL TARTRATE 25 MG TABLET JT SCH ×2 (09:50→21:19)
[2022-06-12] MEDS: DOCUSATE SODIUM LIQ 100 MG/10 ML UDC JT SCH ×2 (09:50→17:17)
[2022-06-12] MEDS: TIZANIDINE 2MG TABLET JT SCH ×2 (09:51→21:19)
[2022-06-12] MEDS: TOPIRAMATE 50 MG JT SCH ×2 (09:51→21:19)
[2022-06-12] MEDS: [UNRECOGNIZED DRUG - REMARK] JT SCH (09:51)
[2022-06-12] MEDS: OMEPRAZOLE 20 MG CAPSULE.DR JT SCH ×2 (09:52→21:19)
[2022-06-12] MEDS: CHLORHEXIDINE GLUCONATE 15 ML UDC MM SCH ×2 (09:52→21:19)
[2022-06-12] MEDS: HYDROCODONE/APAP 5/325MG TABLET JT SCH (09:52)
[2022-06-12] MEDS: Z GUARD REMEDY 4 OZ OINT TP SCH ×4 (09:52→21:19)
[2022-06-12 13:57] VITALS: BP 114/66
[2022-06-12] MEDS: VITAL AF 1.2 1,000 ML BOTTLE GT PRN (17:18)
[2022-06-12 19:37] VITALS: BP 121/79
[2022-06-12] MEDS: SENNOSIDES 8.6 MG TABLET JT SCH (21:19)
[2022-06-12] MEDS: MULTIVIT W/MINERALS 1 TAB TABLET JT SCH (21:19)
[2022-06-13 00:26] VITALS: BP 124/86
[2022-06-13] MEDS: ERYTHROMYCIN ETHYLSUCCINATE 200 MG/5 ML SUSPENSION JT SCH ×4 (00:57→17:05)
[2022-06-13] MEDS: SIMETHICONE SUSP 40 MG/0.6 ML BOTTLE JT SCH ×4 (00:57→17:06)
[2022-06-13] MEDS: BACLOFEN (10 MG) 10 MG TABLET JT SCH ×4 (00:57→17:05)
[2022-06-13] MEDS: METOCLOPRAMIDE HCL 10 MG/10 ML UDC JT SCH ×4 (00:57→17:07)
[2022-06-13] MEDS: IPRATROPIUM NEB FS 0.5 MG/2.5 ML AMPUL.NEB NEB SCH ×4 (01:40→20:06)
[2022-06-13] MEDS: ALBUTEROL FS 2.5 MG/3 ML VIAL.NEB NEB SCH ×4 (01:40→20:06)
[2022-06-13 08:00] VITALS: BP 153/97
[2022-06-13] MEDS: HYDROGEN PEROXIDE 480 ML BOTTLE TP SCH ×2 (08:57→20:06)
[2022-06-13] MEDS: CITRIC ACID/SODIUM CITRATE (BICITRA)15 ML UDC JT SCH ×4 (09:16→21:26)
[2022-06-13] MEDS: DOCUSATE SODIUM LIQ 100 MG/10 ML UDC JT SCH ×2 (09:18→17:05)
[2022-06-13] MEDS: FERROUS SULFATE - FOR SA ONLY 330 MG/7.5 ML UDC JT SCH (09:18)
[2022-06-13] MEDS: LEVETIRACETAM SOL (5 ML) 100 MG/ML UDC JT SCH ×2 (09:25→21:26)
[2022-06-13] MEDS: CRANBERRY D MANNOSE JT SCH (09:25)
[2022-06-13] MEDS: [UNRECOGNIZED DRUG - REMARK] JT SCH (09:26)
[2022-06-13] MEDS: METOPROLOL TARTRATE 25 MG TABLET JT SCH ×2 (09:26→21:26)
[2022-06-13] MEDS: TIZANIDINE 2MG TABLET JT SCH ×2 (09:29→21:26)
[2022-06-13] MEDS: TOPIRAMATE 50 MG JT SCH ×2 (09:29→21:26)
[2022-06-13] MEDS: HYDROCODONE/APAP 5/325MG TABLET JT SCH (09:30)
[2022-06-13] MEDS: CHLORHEXIDINE GLUCONATE 15 ML UDC MM SCH ×2 (09:30→21:26)
[2022-06-13] MEDS: Z GUARD REMEDY 4 OZ OINT TP SCH ×4 (09:30→21:27)
[2022-06-13] MEDS: OMEPRAZOLE 20 MG CAPSULE.DR JT SCH ×2 (09:30→21:26)
[2022-06-13 09:34] VITALS: BP 117/74
[2022-06-13 12:00] VITALS: BP 140/69
[2022-06-13] MEDS: POLYVINYL ALCOHOL 15 ML BOTTLE EACHEYE PRN (15:08)
[2022-06-13] MEDS: VITAL AF 1.2 1,000 ML BOTTLE GT PRN (18:50)
[2022-06-13 20:01] VITALS: BP_SYST 126; BP_SYST 136; BP_DIAS 77
[2022-06-13] MEDS: MULTIVIT W/MINERALS 1 TAB TABLET JT SCH (21:27)
[2022-06-13] MEDS: SENNOSIDES 8.6 MG TABLET JT SCH (21:27)
[2022-06-14 00:14] VITALS: BP 118/72
[2022-06-14] MEDS: ERYTHROMYCIN ETHYLSUCCINATE 200 MG/5 ML SUSPENSION JT SCH ×4 (00:24→17:17)
[2022-06-14] MEDS: SIMETHICONE SUSP 40 MG/0.6 ML BOTTLE JT SCH ×4 (00:24→17:19)
[2022-06-14] MEDS: BACLOFEN (10 MG) 10 MG TABLET JT SCH ×4 (00:24→17:17)
[2022-06-14] MEDS: METOCLOPRAMIDE HCL 10 MG/10 ML UDC JT SCH ×4 (00:24→17:19)
[2022-06-14] MEDS: ALBUTEROL FS 2.5 MG/3 ML VIAL.NEB NEB SCH ×4 (01:42→20:18)
[2022-06-14] MEDS: IPRATROPIUM NEB FS 0.5 MG/2.5 ML AMPUL.NEB NEB SCH ×4 (01:42→20:18)
[2022-06-14 07:41] VITALS: BP 125/78
[2022-06-14] MEDS: CITRIC ACID/SODIUM CITRATE (BICITRA)15 ML UDC JT SCH ×4 (08:59→21:20)
[2022-06-14] MEDS: FERROUS SULFATE - FOR SA ONLY 330 MG/7.5 ML UDC JT SCH (09:01)
[2022-06-14] MEDS: DOCUSATE SODIUM LIQ 100 MG/10 ML UDC JT SCH ×2 (09:01→17:17)
[2022-06-14] MEDS: CRANBERRY D MANNOSE JT SCH (09:01)
[2022-06-14] MEDS: LEVETIRACETAM SOL (5 ML) 100 MG/ML UDC JT SCH ×2 (09:02→21:20)
[2022-06-14] MEDS: METOPROLOL TARTRATE 25 MG TABLET JT SCH ×2 (09:03→21:21)
[2022-06-14] MEDS: TIZANIDINE 2MG TABLET JT SCH ×2 (09:04→21:21)
[2022-06-14] MEDS: TOPIRAMATE 50 MG JT SCH ×2 (09:04→21:21)
[2022-06-14] MEDS: [UNRECOGNIZED DRUG - REMARK] JT SCH (09:04)
[2022-06-14] MEDS: HYDROCODONE/APAP 5/325MG TABLET JT SCH (09:05)
[2022-06-14] MEDS: OMEPRAZOLE 20 MG CAPSULE.DR JT SCH ×2 (09:05→21:21)
[2022-06-14] MEDS: CHLORHEXIDINE GLUCONATE 15 ML UDC MM SCH ×2 (09:06→21:21)
[2022-06-14] MEDS: Z GUARD REMEDY 4 OZ OINT TP SCH ×4 (09:06→21:21)
[2022-06-14] MEDS: HYDROGEN PEROXIDE 480 ML BOTTLE TP SCH ×2 (09:16→20:19)
[2022-06-14] MEDS: POLYVINYL ALCOHOL 15 ML BOTTLE EACHEYE PRN (13:58)
[2022-06-14] MEDS: VITAL AF 1.2 1,000 ML BOTTLE GT PRN (18:19)
[2022-06-14 19:10] VITALS: BP 119/78
[2022-06-14] MEDS: MULTIVIT W/MINERALS 1 TAB TABLET JT SCH (21:21)
[2022-06-14] MEDS: SENNOSIDES 8.6 MG TABLET JT SCH (21:21)
[2022-06-14 23:35] VITALS: BP 126/82
[2022-06-15] MEDS: ERYTHROMYCIN ETHYLSUCCINATE 200 MG/5 ML SUSPENSION JT SCH ×5 (00:34→23:45)
[2022-06-15] MEDS: SIMETHICONE SUSP 40 MG/0.6 ML BOTTLE JT SCH ×5 (00:34→23:45)
[2022-06-15] MEDS: BACLOFEN (10 MG) 10 MG TABLET JT SCH ×5 (00:34→23:45)
[2022-06-15] MEDS: METOCLOPRAMIDE HCL 10 MG/10 ML UDC JT SCH ×5 (00:34→23:45)
[2022-06-15] MEDS: IPRATROPIUM NEB FS 0.5 MG/2.5 ML AMPUL.NEB NEB SCH ×4 (02:10→19:37)
[2022-06-15] MEDS: ALBUTEROL FS 2.5 MG/3 ML VIAL.NEB NEB SCH ×4 (02:10→19:37)
[2022-06-15 08:06] VITALS: BP 134/97
[2022-06-15] MEDS: [UNRECOGNIZED DRUG - REMARK] JT SCH (08:50)
[2022-06-15] MEDS: CITRIC ACID/SODIUM CITRATE (BICITRA)15 ML UDC JT SCH ×4 (08:50→20:30)
[2022-06-15] MEDS: CRANBERRY D MANNOSE JT SCH (08:50)
[2022-06-15] MEDS: METOPROLOL TARTRATE 25 MG TABLET JT SCH ×2 (08:50→20:31)
[2022-06-15] MEDS: TOPIRAMATE 50 MG JT SCH ×2 (08:50→20:31)
[2022-06-15] MEDS: TIZANIDINE 2MG TABLET JT SCH ×2 (08:50→20:31)
[2022-06-15] MEDS: DOCUSATE SODIUM LIQ 100 MG/10 ML UDC JT SCH ×2 (08:50→16:46)
[2022-06-15] MEDS: FERROUS SULFATE - FOR SA ONLY 330 MG/7.5 ML UDC JT SCH (08:50)
[2022-06-15] MEDS: LEVETIRACETAM SOL (5 ML) 100 MG/ML UDC JT SCH ×2 (08:50→20:30)
[2022-06-15] MEDS: CHLORHEXIDINE GLUCONATE 15 ML UDC MM SCH ×2 (08:51→20:31)
[2022-06-15] MEDS: OMEPRAZOLE 20 MG CAPSULE.DR JT SCH ×2 (08:51→20:31)
[2022-06-15] MEDS: Z GUARD REMEDY 4 OZ OINT TP SCH ×4 (08:51→20:31)
[2022-06-15] MEDS: HYDROCODONE/APAP 5/325MG TABLET JT SCH (09:00)
[2022-06-15] MEDS: HYDROGEN PEROXIDE 480 ML BOTTLE TP SCH ×2 (09:07→20:29)
[2022-06-15] MEDS: VITAL AF 1.2 1,000 ML BOTTLE GT PRN (18:32)
[2022-06-15 18:57] VITALS: BP 121/86
[2022-06-15] MEDS: MULTIVIT W/MINERALS 1 TAB TABLET JT SCH (21:34)
[2022-06-15] MEDS: SENNOSIDES 8.6 MG TABLET JT SCH (21:34)
[2022-06-16 00:48] VITALS: BP 118/75
[2022-06-16] MEDS: IPRATROPIUM NEB FS 0.5 MG/2.5 ML AMPUL.NEB NEB SCH ×4 (01:58→19:44)
[2022-06-16] MEDS: ALBUTEROL FS 2.5 MG/3 ML VIAL.NEB NEB SCH ×4 (01:58→19:44)
[2022-06-16] MEDS: ERYTHROMYCIN ETHYLSUCCINATE 200 MG/5 ML SUSPENSION JT SCH ×4 (05:55→23:54)
[2022-06-16] MEDS: METOCLOPRAMIDE HCL 10 MG/10 ML UDC JT SCH ×4 (05:55→23:54)
[2022-06-16] MEDS: SIMETHICONE SUSP 40 MG/0.6 ML BOTTLE JT SCH ×4 (05:55→23:54)
[2022-06-16] MEDS: BACLOFEN (10 MG) 10 MG TABLET JT SCH ×4 (05:55→23:54)
[2022-06-16 07:54] VITALS: BP 108/72
[2022-06-16] MEDS: METOPROLOL TARTRATE 25 MG TABLET JT SCH ×2 (09:00→20:46)
[2022-06-16] MEDS: CRANBERRY D MANNOSE JT SCH (09:07)
[2022-06-16] MEDS: DOCUSATE SODIUM LIQ 100 MG/10 ML UDC JT SCH ×2 (09:07→17:30)
[2022-06-16] MEDS: FERROUS SULFATE - FOR SA ONLY 330 MG/7.5 ML UDC JT SCH (09:07)
[2022-06-16] MEDS: LEVETIRACETAM SOL (5 ML) 100 MG/ML UDC JT SCH ×2 (09:08→20:46)
[2022-06-16] MEDS: [UNRECOGNIZED DRUG - REMARK] JT SCH (09:11)
[2022-06-16] MEDS: TOPIRAMATE 50 MG JT SCH ×2 (09:12→20:47)
[2022-06-16] MEDS: TIZANIDINE 2MG TABLET JT SCH ×2 (09:12→20:46)
[2022-06-16] MEDS: CHLORHEXIDINE GLUCONATE 15 ML UDC MM SCH ×2 (09:13→20:47)
[2022-06-16] MEDS: OMEPRAZOLE 20 MG CAPSULE.DR JT SCH ×2 (09:13→20:47)
[2022-06-16] MEDS: HYDROCODONE/APAP 5/325MG TABLET JT SCH (09:15)
[2022-06-16] MEDS: Z GUARD REMEDY 4 OZ OINT TP SCH ×4 (09:15→20:47)
[2022-06-16] MEDS: HYDROGEN PEROXIDE 480 ML BOTTLE TP SCH ×2 (09:16→21:05)
[2022-06-16] MEDS: CITRIC ACID/SODIUM CITRATE (BICITRA)15 ML UDC JT SCH ×4 (09:17→20:46)
[2022-06-16] MEDS: SENNOSIDES 8.6 MG TABLET JT SCH (22:27)
[2022-06-16] MEDS: MULTIVIT W/MINERALS 1 TAB TABLET JT SCH (22:27)
[2022-06-17] MEDS: IPRATROPIUM NEB FS 0.5 MG/2.5 ML AMPUL.NEB NEB SCH ×4 (01:29→19:47)
[2022-06-17] MEDS: ALBUTEROL FS 2.5 MG/3 ML VIAL.NEB NEB SCH ×4 (01:29→19:47)
[2022-06-17 02:07] VITALS: BP 129/87
[2022-06-17] MEDS: METOCLOPRAMIDE HCL 10 MG/10 ML UDC JT SCH ×3 (06:08→17:49)
[2022-06-17] MEDS: BACLOFEN (10 MG) 10 MG TABLET JT SCH ×3 (06:08→17:48)
[2022-06-17] MEDS: SIMETHICONE SUSP 40 MG/0.6 ML BOTTLE JT SCH ×3 (06:08→17:49)
[2022-06-17] MEDS: ERYTHROMYCIN ETHYLSUCCINATE 200 MG/5 ML SUSPENSION JT SCH ×3 (06:08→17:48)
[2022-06-17 07:52] VITALS: BP 126/72
[2022-06-17] MEDS: HYDROGEN PEROXIDE 480 ML BOTTLE TP SCH ×2 (08:11→21:05)
[2022-06-17] MEDS: CITRIC ACID/SODIUM CITRATE (BICITRA)15 ML UDC JT SCH ×4 (09:40→21:08)
[2022-06-17] MEDS: LEVETIRACETAM SOL (5 ML) 100 MG/ML UDC JT SCH ×2 (09:40→21:08)
[2022-06-17] MEDS: CRANBERRY D MANNOSE JT SCH (09:40)
[2022-06-17] MEDS: FERROUS SULFATE - FOR SA ONLY 330 MG/7.5 ML UDC JT SCH (09:40)
[2022-06-17] MEDS: DOCUSATE SODIUM LIQ 100 MG/10 ML UDC JT SCH ×2 (09:40→17:47)
[2022-06-17] MEDS: CHLORHEXIDINE GLUCONATE 15 ML UDC MM SCH ×2 (09:41→21:09)
[2022-06-17] MEDS: METOPROLOL TARTRATE 25 MG TABLET JT SCH ×2 (09:41→21:09)
[2022-06-17] MEDS: OMEPRAZOLE 20 MG CAPSULE.DR JT SCH ×2 (09:41→21:09)
[2022-06-17] MEDS: TIZANIDINE 2MG TABLET JT SCH ×2 (09:41→21:09)
[2022-06-17] MEDS: HYDROCODONE/APAP 5/325MG TABLET JT SCH (09:41)
[2022-06-17] MEDS: Z GUARD REMEDY 4 OZ OINT TP SCH ×4 (09:41→21:10)
[2022-06-17] MEDS: TOPIRAMATE 50 MG JT SCH ×2 (09:41→21:09)
[2022-06-17] MEDS: [UNRECOGNIZED DRUG - REMARK] JT SCH (09:41)
[2022-06-17 20:14] VITALS: BP 115/75
[2022-06-17] MEDS: SENNOSIDES 8.6 MG TABLET JT SCH (21:10)
[2022-06-17] MEDS: MULTIVIT W/MINERALS 1 TAB TABLET JT SCH (21:10)
[2022-06-18] MEDS: SIMETHICONE SUSP 40 MG/0.6 ML BOTTLE JT SCH ×5 (00:57→23:38)
[2022-06-18] MEDS: ERYTHROMYCIN ETHYLSUCCINATE 200 MG/5 ML SUSPENSION JT SCH ×5 (00:57→23:38)
[2022-06-18] MEDS: BACLOFEN (10 MG) 10 MG TABLET JT SCH ×5 (00:57→23:38)
[2022-06-18] MEDS: METOCLOPRAMIDE HCL 10 MG/10 ML UDC JT SCH ×5 (00:57→23:38)
[2022-06-18] MEDS: IPRATROPIUM NEB FS 0.5 MG/2.5 ML AMPUL.NEB NEB SCH ×4 (01:28→19:47)
[2022-06-18] MEDS: ALBUTEROL FS 2.5 MG/3 ML VIAL.NEB NEB SCH ×4 (01:28→19:47)
[2022-06-18 07:00] VITALS: BP 133/91
[2022-06-18] MEDS: DOCUSATE SODIUM LIQ 100 MG/10 ML UDC JT SCH ×2 (08:42→16:32)
[2022-06-18] MEDS: CITRIC ACID/SODIUM CITRATE (BICITRA)15 ML UDC JT SCH ×4 (08:42→20:43)
[2022-06-18] MEDS: FERROUS SULFATE - FOR SA ONLY 330 MG/7.5 ML UDC JT SCH (08:42)
[2022-06-18] MEDS: CRANBERRY D MANNOSE JT SCH (08:43)
[2022-06-18] MEDS: LEVETIRACETAM SOL (5 ML) 100 MG/ML UDC JT SCH ×2 (08:43→20:43)
[2022-06-18] MEDS: METOPROLOL TARTRATE 25 MG TABLET JT SCH ×2 (08:44→20:44)
[2022-06-18] MEDS: [UNRECOGNIZED DRUG - REMARK] JT SCH (08:46)
[2022-06-18] MEDS: TOPIRAMATE 50 MG JT SCH ×2 (08:46→20:44)
[2022-06-18] MEDS: TIZANIDINE 2MG TABLET JT SCH ×2 (08:46→20:44)
[2022-06-18] MEDS: HYDROCODONE/APAP 5/325MG TABLET JT SCH (08:47)
[2022-06-18] MEDS: OMEPRAZOLE 20 MG CAPSULE.DR JT SCH ×2 (08:47→20:44)
[2022-06-18] MEDS: CHLORHEXIDINE GLUCONATE 15 ML UDC MM SCH ×2 (08:47→20:44)
[2022-06-18] MEDS: Z GUARD REMEDY 4 OZ OINT TP SCH ×4 (08:48→20:44)
[2022-06-18] MEDS: HYDROGEN PEROXIDE 480 ML BOTTLE TP SCH ×2 (09:15→21:18)
[2022-06-18 11:00] VITALS: BP 123/75
[2022-06-18 14:21] LABS: ABG BASE EXCESS -0.1 mmol/L; ABG OXYGEN SATURATION 97.7 % (92.0-98.5); ABG PCO2 43.9 mmHg (35.0-45.0); ABG PH 7.377 (7.350-7.450); ABG PO2 112.8 mmHg (75.0-100.0); AaDO2 121.9 mmHg; COHb 0.6 % (0.5-1.5); MetHb 0.3 % (0.0-1.5); O2Hb 96.8 % (94.0-97.0); PEEP,BG 5 cm H2O; SITE, ABG Left Radial; VENT MODE, BG SIMV 40% PS 15; VT, ABG 450 mL
[2022-06-18 20:09] VITALS: BP 127/90
[2022-06-18] MEDS: SENNOSIDES 8.6 MG TABLET JT SCH (21:25)
[2022-06-18] MEDS: MULTIVIT W/MINERALS 1 TAB TABLET JT SCH (21:25)
[2022-06-19] MEDS: ALBUTEROL FS 2.5 MG/3 ML VIAL.NEB NEB SCH ×4 (01:19→19:55)
[2022-06-19] MEDS: IPRATROPIUM NEB FS 0.5 MG/2.5 ML AMPUL.NEB NEB SCH ×4 (01:19→19:55)
[2022-06-19] MEDS: VITAL AF 1.2 1,000 ML BOTTLE GT PRN (02:51)
[2022-06-19] MEDS: ERYTHROMYCIN ETHYLSUCCINATE 200 MG/5 ML SUSPENSION JT SCH ×4 (06:04→23:28)
[2022-06-19] MEDS: BACLOFEN (10 MG) 10 MG TABLET JT SCH ×4 (06:04→23:28)
[2022-06-19] MEDS: SIMETHICONE SUSP 40 MG/0.6 ML BOTTLE JT SCH ×4 (06:05→23:28)
[2022-06-19] MEDS: METOCLOPRAMIDE HCL 10 MG/10 ML UDC JT SCH ×4 (06:05→23:28)
[2022-06-19 07:33] VITALS: BP_SYST 122; BP_SYST 128; BP_DIAS 73; BP_DIAS 78
[2022-06-19] MEDS: HYDROGEN PEROXIDE 480 ML BOTTLE TP SCH ×2 (08:42→19:30)
[2022-06-19] MEDS: FERROUS SULFATE - FOR SA ONLY 330 MG/7.5 ML UDC JT SCH (09:00)
[2022-06-19] MEDS: CITRIC ACID/SODIUM CITRATE (BICITRA)15 ML UDC JT SCH ×4 (09:00→21:33)
[2022-06-19] MEDS: LEVETIRACETAM SOL (5 ML) 100 MG/ML UDC JT SCH ×2 (09:00→21:33)
[2022-06-19] MEDS: TOPIRAMATE 50 MG JT SCH ×2 (09:00→21:37)
[2022-06-19] MEDS: METOPROLOL TARTRATE 25 MG TABLET JT SCH ×2 (09:00→21:37)
[2022-06-19] MEDS: DOCUSATE SODIUM LIQ 100 MG/10 ML UDC JT SCH ×2 (09:00→17:38)
[2022-06-19] MEDS: TIZANIDINE 2MG TABLET JT SCH ×2 (09:00→21:37)
[2022-06-19] MEDS: [UNRECOGNIZED DRUG - REMARK] JT SCH (09:00)
[2022-06-19] MEDS: CRANBERRY D MANNOSE JT SCH (09:00)
[2022-06-19] MEDS: CHLORHEXIDINE GLUCONATE 15 ML UDC MM SCH ×2 (09:01→21:38)
[2022-06-19] MEDS: OMEPRAZOLE 20 MG CAPSULE.DR JT SCH ×2 (09:01→21:37)
[2022-06-19] MEDS: Z GUARD REMEDY 4 OZ OINT TP SCH ×4 (09:01→21:38)
[2022-06-19] MEDS: HYDROCODONE/APAP 5/325MG TABLET JT SCH (09:01)
[2022-06-19 20:52] VITALS: BP 111/60
[2022-06-19] MEDS: MULTIVIT W/MINERALS 1 TAB TABLET JT SCH (21:38)
[2022-06-19] MEDS: SENNOSIDES 8.6 MG TABLET JT SCH (21:38)
[2022-06-19 23:55] VITALS: BP 115/62
[2022-06-20] MEDS: IPRATROPIUM NEB FS 0.5 MG/2.5 ML AMPUL.NEB NEB SCH ×4 (01:58→20:20)
[2022-06-20] MEDS: ALBUTEROL FS 2.5 MG/3 ML VIAL.NEB NEB SCH ×4 (01:58→20:20)
[2022-06-20] MEDS: BACLOFEN (10 MG) 10 MG TABLET JT SCH ×4 (05:28→23:31)
[2022-06-20] MEDS: METOCLOPRAMIDE HCL 10 MG/10 ML UDC JT SCH ×4 (05:28→23:31)
[2022-06-20] MEDS: VITAL AF 1.2 1,000 ML BOTTLE GT PRN (05:28)
[2022-06-20] MEDS: SIMETHICONE SUSP 40 MG/0.6 ML BOTTLE JT SCH ×4 (05:28→23:31)
[2022-06-20] MEDS: ERYTHROMYCIN ETHYLSUCCINATE 200 MG/5 ML SUSPENSION JT SCH ×4 (05:28→23:31)
[2022-06-20 07:35] VITALS: BP 142/90
[2022-06-20] MEDS: HYDROGEN PEROXIDE 480 ML BOTTLE TP SCH ×2 (08:39→20:20)
[2022-06-20 08:46] LABS: ABG BASE EXCESS -3.4 mmol/L; ABG OXYGEN SATURATION 97.8 % (92.0-98.5); ABG PCO2 43.3 mmHg (35.0-45.0); ABG PH 7.332 (7.350-7.450); ABG PO2 121.6 mmHg (75.0-100.0); AaDO2 113.8 mmHg; COHb 0.5 % (0.5-1.5); O2Hb 97.3 % (94.0-97.0); SITE, ABG Left Radial; VENT MODE, BG CPAP +5 PS 15 40%
[2022-06-20] MEDS: METOPROLOL TARTRATE 25 MG TABLET JT SCH ×2 (09:00→20:40)
[2022-06-20] MEDS: CITRIC ACID/SODIUM CITRATE (BICITRA)15 ML UDC JT SCH ×4 (09:07→20:39)
[2022-06-20] MEDS: FERROUS SULFATE - FOR SA ONLY 330 MG/7.5 ML UDC JT SCH (09:07)
[2022-06-20] MEDS: DOCUSATE SODIUM LIQ 100 MG/10 ML UDC JT SCH ×2 (09:07→16:57)
[2022-06-20] MEDS: CRANBERRY D MANNOSE JT SCH (09:08)
[2022-06-20] MEDS: LEVETIRACETAM SOL (5 ML) 100 MG/ML UDC JT SCH ×2 (09:08→20:39)
[2022-06-20] MEDS: TIZANIDINE 2MG TABLET JT SCH ×2 (09:11→20:40)
[2022-06-20] MEDS: [UNRECOGNIZED DRUG - REMARK] JT SCH (09:11)
[2022-06-20] MEDS: TOPIRAMATE 50 MG JT SCH ×2 (09:12→20:40)
[2022-06-20] MEDS: CHLORHEXIDINE GLUCONATE 15 ML UDC MM SCH ×2 (09:13→20:40)
[2022-06-20] MEDS: Z GUARD REMEDY 4 OZ OINT TP SCH ×4 (09:13→20:40)
[2022-06-20] MEDS: OMEPRAZOLE 20 MG CAPSULE.DR JT SCH ×2 (09:13→20:40)
[2022-06-20] MEDS: HYDROCODONE/APAP 5/325MG TABLET JT SCH (09:13)
[2022-06-20 12:24] VITALS: BP 135/64
[2022-06-20] MEDS: POLYVINYL ALCOHOL 15 ML BOTTLE EACHEYE PRN (13:03)
[2022-06-20 18:55] VITALS: BP 122/81
[2022-06-20] MEDS: MULTIVIT W/MINERALS 1 TAB TABLET JT SCH (21:08)
[2022-06-20] MEDS: SENNOSIDES 8.6 MG TABLET JT SCH (21:08)
[2022-06-21 00:44] VITALS: BP 125/72
[2022-06-21] MEDS: IPRATROPIUM NEB FS 0.5 MG/2.5 ML AMPUL.NEB NEB SCH ×4 (02:13→20:10)
[2022-06-21] MEDS: ALBUTEROL FS 2.5 MG/3 ML VIAL.NEB NEB SCH ×4 (02:13→20:10)
[2022-06-21] MEDS: VITAL AF 1.2 1,000 ML BOTTLE GT PRN (03:25)
[2022-06-21] MEDS: BACLOFEN (10 MG) 10 MG TABLET JT SCH ×3 (06:17→17:21)
[2022-06-21] MEDS: METOCLOPRAMIDE HCL 10 MG/10 ML UDC JT SCH ×3 (06:17→17:25)
[2022-06-21] MEDS: ERYTHROMYCIN ETHYLSUCCINATE 200 MG/5 ML SUSPENSION JT SCH ×3 (06:17→17:16)
[2022-06-21] MEDS: SIMETHICONE SUSP 40 MG/0.6 ML BOTTLE JT SCH ×3 (06:17→17:25)
[2022-06-21 07:19] VITALS: BP 147/84
[2022-06-21] MEDS: HYDROGEN PEROXIDE 480 ML BOTTLE TP SCH ×2 (08:30→20:10)
[2022-06-21] MEDS: LEVETIRACETAM SOL (5 ML) 100 MG/ML UDC JT SCH ×2 (08:58→21:04)
[2022-06-21] MEDS: CITRIC ACID/SODIUM CITRATE (BICITRA)15 ML UDC JT SCH ×4 (08:58→21:04)
[2022-06-21] MEDS: DOCUSATE SODIUM LIQ 100 MG/10 ML UDC JT SCH ×2 (08:58→17:12)
[2022-06-21] MEDS: CRANBERRY D MANNOSE JT SCH (08:58)
[2022-06-21] MEDS: FERROUS SULFATE - FOR SA ONLY 330 MG/7.5 ML UDC JT SCH (08:58)
[2022-06-21] MEDS: METOPROLOL TARTRATE 25 MG TABLET JT SCH ×2 (08:59→21:04)
[2022-06-21] MEDS: TOPIRAMATE 50 MG JT SCH ×2 (09:01→21:04)
[2022-06-21] MEDS: TIZANIDINE 2MG TABLET JT SCH ×2 (09:01→21:04)
[2022-06-21] MEDS: [UNRECOGNIZED DRUG - REMARK] JT SCH (09:01)
[2022-06-21] MEDS: OMEPRAZOLE 20 MG CAPSULE.DR JT SCH ×2 (09:04→21:04)
[2022-06-21] MEDS: CHLORHEXIDINE GLUCONATE 15 ML UDC MM SCH ×2 (09:04→21:04)
[2022-06-21] MEDS: HYDROCODONE/APAP 5/325MG TABLET JT SCH (09:04)
[2022-06-21] MEDS: Z GUARD REMEDY 4 OZ OINT TP SCH ×4 (09:04→21:04)
[2022-06-21] MEDS: POLYVINYL ALCOHOL 15 ML BOTTLE EACHEYE PRN (09:10)
[2022-06-21 20:35] VITALS: BP 125/85
[2022-06-21] MEDS: MULTIVIT W/MINERALS 1 TAB TABLET JT SCH (21:05)
[2022-06-21] MEDS: SENNOSIDES 8.6 MG TABLET JT SCH (21:05)
[2022-06-21 23:53] VITALS: BP 118/65
[2022-06-22] MEDS: ERYTHROMYCIN ETHYLSUCCINATE 200 MG/5 ML SUSPENSION JT SCH ×4 (00:28→17:15)
[2022-06-22] MEDS: BACLOFEN (10 MG) 10 MG TABLET JT SCH ×4 (00:28→17:15)
[2022-06-22] MEDS: METOCLOPRAMIDE HCL 10 MG/10 ML UDC JT SCH ×4 (00:28→17:15)
[2022-06-22] MEDS: SIMETHICONE SUSP 40 MG/0.6 ML BOTTLE JT SCH ×4 (00:28→17:15)
[2022-06-22] MEDS: VITAL AF 1.2 1,000 ML BOTTLE GT PRN (01:44)
[2022-06-22] MEDS: ALBUTEROL FS 2.5 MG/3 ML VIAL.NEB NEB SCH ×4 (02:09→19:36)
[2022-06-22] MEDS: IPRATROPIUM NEB FS 0.5 MG/2.5 ML AMPUL.NEB NEB SCH ×4 (02:09→19:36)
[2022-06-22 07:34] VITALS: BP 134/88
[2022-06-22] MEDS: TIZANIDINE 2MG TABLET JT SCH ×2 (08:18→21:11)
[2022-06-22] MEDS: TOPIRAMATE 50 MG JT SCH ×2 (08:18→21:11)
[2022-06-22] MEDS: METOPROLOL TARTRATE 25 MG TABLET JT SCH ×2 (08:18→21:11)
[2022-06-22] MEDS: [UNRECOGNIZED DRUG - REMARK] JT SCH (08:19)
[2022-06-22] MEDS: CHLORHEXIDINE GLUCONATE 15 ML UDC MM SCH ×2 (08:19→21:11)
[2022-06-22] MEDS: OMEPRAZOLE 20 MG CAPSULE.DR JT SCH ×2 (08:19→21:11)
[2022-06-22] MEDS: CRANBERRY D MANNOSE JT SCH (08:20)
[2022-06-22] MEDS: Z GUARD REMEDY 4 OZ OINT TP SCH ×4 (08:21→21:11)
[2022-06-22] MEDS: DOCUSATE SODIUM LIQ 100 MG/10 ML UDC JT SCH ×2 (08:21→16:48)
[2022-06-22] MEDS: LEVETIRACETAM SOL (5 ML) 100 MG/ML UDC JT SCH ×2 (08:21→21:11)
[2022-06-22] MEDS: FERROUS SULFATE - FOR SA ONLY 330 MG/7.5 ML UDC JT SCH (08:21)
[2022-06-22] MEDS: CITRIC ACID/SODIUM CITRATE (BICITRA)15 ML UDC JT SCH ×4 (08:23→21:11)
[2022-06-22] MEDS: HYDROCODONE/APAP 5/325MG TABLET JT SCH (09:00)
[2022-06-22] MEDS: HYDROGEN PEROXIDE 480 ML BOTTLE TP SCH ×2 (09:26→21:47)
[2022-06-22 19:32] VITALS: BP 121/77
[2022-06-22] MEDS: MULTIVIT W/MINERALS 1 TAB TABLET JT SCH (21:11)
[2022-06-22] MEDS: SENNOSIDES 8.6 MG TABLET JT SCH (21:11)
[2022-06-22] MEDS: ACETAMINOPHEN 650 MG/20 ML UDC- SA PATIENTS-PAIN ONLY JT PRN (22:58)
[2022-06-23] MEDS: ERYTHROMYCIN ETHYLSUCCINATE 200 MG/5 ML SUSPENSION JT SCH ×5 (00:21→23:24)
[2022-06-23 00:26] VITALS: BP 104/70
[2022-06-23] MEDS: METOCLOPRAMIDE HCL 10 MG/10 ML UDC JT SCH ×5 (00:26→23:24)
[2022-06-23] MEDS: SIMETHICONE SUSP 40 MG/0.6 ML BOTTLE JT SCH ×5 (00:26→23:24)
[2022-06-23] MEDS: BACLOFEN (10 MG) 10 MG TABLET JT SCH ×5 (00:26→23:24)
[2022-06-23] MEDS: VITAL AF 1.2 1,000 ML BOTTLE GT PRN ×2 (01:26→21:42)
[2022-06-23] MEDS: IPRATROPIUM NEB FS 0.5 MG/2.5 ML AMPUL.NEB NEB SCH ×4 (01:35→19:01)
[2022-06-23] MEDS: ALBUTEROL FS 2.5 MG/3 ML VIAL.NEB NEB SCH ×4 (01:35→19:01)
[2022-06-23 07:45] VITALS: BP 120/77
[2022-06-23] MEDS: HYDROGEN PEROXIDE 480 ML BOTTLE TP SCH ×2 (08:12→20:23)
[2022-06-23] MEDS: METOPROLOL TARTRATE 25 MG TABLET JT SCH ×2 (09:17→20:44)
[2022-06-23] MEDS: [UNRECOGNIZED DRUG - REMARK] JT SCH (09:17)
[2022-06-23] MEDS: CITRIC ACID/SODIUM CITRATE (BICITRA)15 ML UDC JT SCH ×4 (09:17→20:43)
[2022-06-23] MEDS: FERROUS SULFATE - FOR SA ONLY 330 MG/7.5 ML UDC JT SCH (09:17)
[2022-06-23] MEDS: OMEPRAZOLE 20 MG CAPSULE.DR JT SCH ×2 (09:17→20:44)
[2022-06-23] MEDS: LEVETIRACETAM SOL (5 ML) 100 MG/ML UDC JT SCH ×2 (09:17→20:43)
[2022-06-23] MEDS: DOCUSATE SODIUM LIQ 100 MG/10 ML UDC JT SCH ×2 (09:17→17:59)
[2022-06-23] MEDS: TOPIRAMATE 50 MG JT SCH ×2 (09:17→20:44)
[2022-06-23] MEDS: CRANBERRY D MANNOSE JT SCH (09:17)
[2022-06-23] MEDS: HYDROCODONE/APAP 5/325MG TABLET JT SCH (09:17)
[2022-06-23] MEDS: TIZANIDINE 2MG TABLET JT SCH ×2 (09:17→20:44)
[2022-06-23] MEDS: CHLORHEXIDINE GLUCONATE 15 ML UDC MM SCH ×2 (09:18→20:44)
[2022-06-23] MEDS: Z GUARD REMEDY 4 OZ OINT TP SCH ×4 (09:18→20:44)
[2022-06-23 19:55] VITALS: BP 120/76
[2022-06-23] MEDS: SENNOSIDES 8.6 MG TABLET JT SCH (21:36)
[2022-06-23] MEDS: MULTIVIT W/MINERALS 1 TAB TABLET JT SCH (21:36)
[2022-06-24 00:05] VITALS: BP 115/64
[2022-06-24] MEDS: IPRATROPIUM NEB FS 0.5 MG/2.5 ML AMPUL.NEB NEB SCH ×4 (01:05→18:55)
[2022-06-24] MEDS: ALBUTEROL FS 2.5 MG/3 ML VIAL.NEB NEB SCH ×4 (01:05→18:55)
[2022-06-24] MEDS: SIMETHICONE SUSP 40 MG/0.6 ML BOTTLE JT SCH ×3 (06:09→17:22)
[2022-06-24] MEDS: BACLOFEN (10 MG) 10 MG TABLET JT SCH ×3 (06:09→17:22)
[2022-06-24] MEDS: METOCLOPRAMIDE HCL 10 MG/10 ML UDC JT SCH ×3 (06:09→17:22)
[2022-06-24] MEDS: ERYTHROMYCIN ETHYLSUCCINATE 200 MG/5 ML SUSPENSION JT SCH ×3 (06:09→17:22)
[2022-06-24 07:20] VITALS: BP 134/81
[2022-06-24] MEDS: HYDROGEN PEROXIDE 480 ML BOTTLE TP SCH ×2 (08:42→20:37)
[2022-06-24] MEDS: FERROUS SULFATE - FOR SA ONLY 330 MG/7.5 ML UDC JT SCH (09:23)
[2022-06-24] MEDS: CITRIC ACID/SODIUM CITRATE (BICITRA)15 ML UDC JT SCH ×4 (09:23→20:42)
[2022-06-24] MEDS: CRANBERRY D MANNOSE JT SCH (09:23)
[2022-06-24] MEDS: DOCUSATE SODIUM LIQ 100 MG/10 ML UDC JT SCH ×2 (09:23→17:22)
[2022-06-24] MEDS: LEVETIRACETAM SOL (5 ML) 100 MG/ML UDC JT SCH ×2 (09:23→20:43)
[2022-06-24] MEDS: CHLORHEXIDINE GLUCONATE 15 ML UDC MM SCH ×2 (09:24→20:42)
[2022-06-24] MEDS: HYDROCODONE/APAP 5/325MG TABLET JT SCH (09:24)
[2022-06-24] MEDS: Z GUARD REMEDY 4 OZ OINT TP SCH ×4 (09:24→20:46)
[2022-06-24] MEDS: OMEPRAZOLE 20 MG CAPSULE.DR JT SCH ×2 (09:24→20:46)
[2022-06-24] MEDS: TOPIRAMATE 50 MG JT SCH ×2 (09:24→20:46)
[2022-06-24] MEDS: TIZANIDINE 2MG TABLET JT SCH ×2 (09:24→20:46)
[2022-06-24] MEDS: [UNRECOGNIZED DRUG - REMARK] JT SCH (09:24)
[2022-06-24] MEDS: METOPROLOL TARTRATE 25 MG TABLET JT SCH ×2 (09:24→20:46)
[2022-06-24 12:00] VITALS: BP 120/70
[2022-06-24 20:00] VITALS: BP 103/67
[2022-06-24] MEDS: MULTIVIT W/MINERALS 1 TAB TABLET JT SCH (21:37)
[2022-06-24] MEDS: SENNOSIDES 8.6 MG TABLET JT SCH (21:37)
[2022-06-25] MEDS: ALBUTEROL FS 2.5 MG/3 ML VIAL.NEB NEB SCH ×4 (00:39→19:44)
[2022-06-25] MEDS: IPRATROPIUM NEB FS 0.5 MG/2.5 ML AMPUL.NEB NEB SCH ×4 (00:39→19:44)
[2022-06-25] MEDS: ERYTHROMYCIN ETHYLSUCCINATE 200 MG/5 ML SUSPENSION JT SCH ×5 (00:54→23:36)
[2022-06-25] MEDS: BACLOFEN (10 MG) 10 MG TABLET JT SCH ×5 (00:54→23:36)
[2022-06-25] MEDS: METOCLOPRAMIDE HCL 10 MG/10 ML UDC JT SCH ×5 (00:55→23:36)
[2022-06-25] MEDS: SIMETHICONE SUSP 40 MG/0.6 ML BOTTLE JT SCH ×5 (00:55→23:36)
[2022-06-25] MEDS: VITAL AF 1.2 1,000 ML BOTTLE GT PRN (04:08)
[2022-06-25 08:00] VITALS: BP 110/77
[2022-06-25] MEDS: CITRIC ACID/SODIUM CITRATE (BICITRA)15 ML UDC JT SCH ×4 (09:29→21:23)
[2022-06-25] MEDS: DOCUSATE SODIUM LIQ 100 MG/10 ML UDC JT SCH ×2 (09:29→17:29)
[2022-06-25] MEDS: CRANBERRY D MANNOSE JT SCH (09:30)
[2022-06-25] MEDS: LEVETIRACETAM SOL (5 ML) 100 MG/ML UDC JT SCH ×2 (09:30→21:23)
[2022-06-25] MEDS: FERROUS SULFATE - FOR SA ONLY 330 MG/7.5 ML UDC JT SCH (09:30)
[2022-06-25] MEDS: [UNRECOGNIZED DRUG - REMARK] JT SCH (09:35)
[2022-06-25] MEDS: METOPROLOL TARTRATE 25 MG TABLET JT SCH ×2 (09:35→21:23)
[2022-06-25] MEDS: TIZANIDINE 2MG TABLET JT SCH ×2 (09:35→21:23)
[2022-06-25] MEDS: TOPIRAMATE 50 MG JT SCH ×2 (09:35→21:23)
[2022-06-25] MEDS: HYDROCODONE/APAP 5/325MG TABLET JT SCH (09:36)
[2022-06-25] MEDS: Z GUARD REMEDY 4 OZ OINT TP SCH ×4 (09:37→21:23)
[2022-06-25] MEDS: OMEPRAZOLE 20 MG CAPSULE.DR JT SCH ×2 (09:37→21:23)
[2022-06-25] MEDS: CHLORHEXIDINE GLUCONATE 15 ML UDC MM SCH ×2 (09:37→21:23)
[2022-06-25] MEDS: HYDROGEN PEROXIDE 480 ML BOTTLE TP SCH ×2 (09:53→20:38)
[2022-06-25 20:21] VITALS: BP 132/71
[2022-06-25] MEDS: SENNOSIDES 8.6 MG TABLET JT SCH (21:23)
[2022-06-25] MEDS: MULTIVIT W/MINERALS 1 TAB TABLET JT SCH (21:23)
[2022-06-26] MEDS: ALBUTEROL FS 2.5 MG/3 ML VIAL.NEB NEB SCH ×4 (01:43→19:52)
[2022-06-26] MEDS: IPRATROPIUM NEB FS 0.5 MG/2.5 ML AMPUL.NEB NEB SCH ×4 (01:43→19:52)
[2022-06-26] MEDS: BACLOFEN (10 MG) 10 MG TABLET JT SCH ×4 (05:38→23:25)
[2022-06-26] MEDS: ERYTHROMYCIN ETHYLSUCCINATE 200 MG/5 ML SUSPENSION JT SCH ×4 (05:38→23:25)
[2022-06-26] MEDS: SIMETHICONE SUSP 40 MG/0.6 ML BOTTLE JT SCH ×4 (05:38→23:25)
[2022-06-26] MEDS: METOCLOPRAMIDE HCL 10 MG/10 ML UDC JT SCH ×4 (05:38→23:25)
[2022-06-26 07:33] VITALS: BP 136/87
[2022-06-26] MEDS: HYDROCODONE/APAP 5/325MG TABLET JT SCH (09:00)
[2022-06-26] MEDS: DOCUSATE SODIUM LIQ 100 MG/10 ML UDC JT SCH ×2 (09:00→17:37)
[2022-06-26] MEDS: Z GUARD REMEDY 4 OZ OINT TP SCH ×4 (09:00→21:17)
[2022-06-26] MEDS: CRANBERRY D MANNOSE JT SCH (09:00)
[2022-06-26] MEDS: METOPROLOL TARTRATE 25 MG TABLET JT SCH ×2 (09:00→21:16)
[2022-06-26] MEDS: LEVETIRACETAM SOL (5 ML) 100 MG/ML UDC JT SCH ×2 (09:00→21:16)
[2022-06-26] MEDS: [UNRECOGNIZED DRUG - REMARK] JT SCH (09:00)
[2022-06-26] MEDS: CHLORHEXIDINE GLUCONATE 15 ML UDC MM SCH ×2 (09:00→21:17)
[2022-06-26] MEDS: CITRIC ACID/SODIUM CITRATE (BICITRA)15 ML UDC JT SCH ×4 (09:00→21:16)
[2022-06-26] MEDS: TIZANIDINE 2MG TABLET JT SCH ×2 (09:00→21:16)
[2022-06-26] MEDS: FERROUS SULFATE - FOR SA ONLY 330 MG/7.5 ML UDC JT SCH (09:00)
[2022-06-26] MEDS: TOPIRAMATE 50 MG JT SCH ×2 (09:00→21:16)
[2022-06-26] MEDS: OMEPRAZOLE 20 MG CAPSULE.DR JT SCH ×2 (09:00→21:16)
[2022-06-26] MEDS: HYDROGEN PEROXIDE 480 ML BOTTLE TP SCH ×2 (09:16→21:00)
[2022-06-26 12:09] VITALS: BP 128/78
[2022-06-26] MEDS: JEVITY 1.2 CAL 1,000 ML BOTTLE GT PRN (15:21)
[2022-06-26 20:00] VITALS: BP 125/75
[2022-06-26] MEDS: MULTIVIT W/MINERALS 1 TAB TABLET JT SCH (21:17)
[2022-06-26] MEDS: SENNOSIDES 8.6 MG TABLET JT SCH (21:17)
[2022-06-27] MEDS: ALBUTEROL FS 2.5 MG/3 ML VIAL.NEB NEB SCH ×4 (01:41→20:19)
[2022-06-27] MEDS: IPRATROPIUM NEB FS 0.5 MG/2.5 ML AMPUL.NEB NEB SCH ×4 (01:41→20:19)
[2022-06-27] MEDS: METOCLOPRAMIDE HCL 10 MG/10 ML UDC JT SCH ×4 (05:34→23:15)
[2022-06-27] MEDS: ERYTHROMYCIN ETHYLSUCCINATE 200 MG/5 ML SUSPENSION JT SCH ×4 (05:34→23:14)
[2022-06-27] MEDS: SIMETHICONE SUSP 40 MG/0.6 ML BOTTLE JT SCH ×4 (05:34→23:14)
[2022-06-27] MEDS: BACLOFEN (10 MG) 10 MG TABLET JT SCH ×4 (05:34→23:14)
[2022-06-27 07:41] VITALS: BP 137/76
[2022-06-27] MEDS: HYDROGEN PEROXIDE 480 ML BOTTLE TP SCH ×2 (08:41→20:19)
[2022-06-27] MEDS: LEVETIRACETAM SOL (5 ML) 100 MG/ML UDC JT SCH ×2 (09:05→20:52)
[2022-06-27] MEDS: CRANBERRY D MANNOSE JT SCH (09:05)
[2022-06-27] MEDS: DOCUSATE SODIUM LIQ 100 MG/10 ML UDC JT SCH ×2 (09:05→17:25)
[2022-06-27] MEDS: CITRIC ACID/SODIUM CITRATE (BICITRA)15 ML UDC JT SCH ×4 (09:05→20:52)
[2022-06-27] MEDS: FERROUS SULFATE - FOR SA ONLY 330 MG/7.5 ML UDC JT SCH (09:05)
[2022-06-27] MEDS: METOPROLOL TARTRATE 25 MG TABLET JT SCH ×2 (09:06→20:53)
[2022-06-27] MEDS: [UNRECOGNIZED DRUG - REMARK] JT SCH (09:06)
[2022-06-27] MEDS: TIZANIDINE 2MG TABLET JT SCH ×2 (09:08→20:53)
[2022-06-27] MEDS: CHLORHEXIDINE GLUCONATE 15 ML UDC MM SCH ×2 (09:08→20:53)
[2022-06-27] MEDS: OMEPRAZOLE 20 MG CAPSULE.DR JT SCH ×2 (09:08→20:53)
[2022-06-27] MEDS: TOPIRAMATE 50 MG JT SCH ×2 (09:08→20:53)
[2022-06-27] MEDS: HYDROCODONE/APAP 5/325MG TABLET JT SCH (09:08)
[2022-06-27] MEDS: Z GUARD REMEDY 4 OZ OINT TP SCH ×4 (09:08→20:53)
[2022-06-27 12:15] VITALS: BP 132/71
[2022-06-27] MEDS: POLYVINYL ALCOHOL 15 ML BOTTLE EACHEYE PRN (12:28)
[2022-06-27 19:51] VITALS: BP 139/88
[2022-06-27] MEDS: MULTIVIT W/MINERALS 1 TAB TABLET JT SCH (21:12)
[2022-06-27] MEDS: SENNOSIDES 8.6 MG TABLET JT SCH (21:12)
[2022-06-27] MEDS: JEVITY 1.2 CAL 1,000 ML BOTTLE GT PRN (23:41)
[2022-06-28] MEDS: IPRATROPIUM NEB FS 0.5 MG/2.5 ML AMPUL.NEB NEB SCH ×4 (02:25→20:05)
[2022-06-28] MEDS: ALBUTEROL FS 2.5 MG/3 ML VIAL.NEB NEB SCH ×4 (02:25→20:05)
[2022-06-28] MEDS: ERYTHROMYCIN ETHYLSUCCINATE 200 MG/5 ML SUSPENSION JT SCH ×4 (05:20→23:41)
[2022-06-28] MEDS: SIMETHICONE SUSP 40 MG/0.6 ML BOTTLE JT SCH ×4 (05:20→23:41)
[2022-06-28] MEDS: BACLOFEN (10 MG) 10 MG TABLET JT SCH ×4 (05:20→23:41)
[2022-06-28] MEDS: METOCLOPRAMIDE HCL 10 MG/10 ML UDC JT SCH ×4 (05:20→23:41)
[2022-06-28 07:29] VITALS: BP 122/74
[2022-06-28] MEDS: CRANBERRY D MANNOSE JT SCH (08:59)
[2022-06-28] MEDS: CITRIC ACID/SODIUM CITRATE (BICITRA)15 ML UDC JT SCH ×4 (08:59→20:04)
[2022-06-28] MEDS: FERROUS SULFATE - FOR SA ONLY 330 MG/7.5 ML UDC JT SCH (08:59)
[2022-06-28] MEDS: DOCUSATE SODIUM LIQ 100 MG/10 ML UDC JT SCH ×2 (08:59→17:15)
[2022-06-28] MEDS: LEVETIRACETAM SOL (5 ML) 100 MG/ML UDC JT SCH ×2 (09:01→20:04)
[2022-06-28] MEDS: METOPROLOL TARTRATE 25 MG TABLET JT SCH ×2 (09:02→20:04)
[2022-06-28] MEDS: [UNRECOGNIZED DRUG - REMARK] JT SCH (09:02)
[2022-06-28] MEDS: TIZANIDINE 2MG TABLET JT SCH ×2 (09:03→20:04)
[2022-06-28] MEDS: TOPIRAMATE 50 MG JT SCH ×2 (09:03→20:04)
[2022-06-28] MEDS: HYDROCODONE/APAP 5/325MG TABLET JT SCH (09:04)
[2022-06-28] MEDS: Z GUARD REMEDY 4 OZ OINT TP SCH ×4 (09:05→20:05)
[2022-06-28] MEDS: CHLORHEXIDINE GLUCONATE 15 ML UDC MM SCH ×2 (09:05→20:04)
[2022-06-28] MEDS: OMEPRAZOLE 20 MG CAPSULE.DR JT SCH ×2 (09:05→20:04)
[2022-06-28] MEDS: HYDROGEN PEROXIDE 480 ML BOTTLE TP SCH ×2 (09:16→20:05)
[2022-06-28 11:30] VITALS: BP 136/67
[2022-06-28 18:54] VITALS: BP 125/79
[2022-06-28] MEDS: MULTIVIT W/MINERALS 1 TAB TABLET JT SCH (21:09)
[2022-06-28] MEDS: SENNOSIDES 8.6 MG TABLET JT SCH (21:09)
[2022-06-28 23:57] VITALS: BP 122/78
[2022-06-29] MEDS: ALBUTEROL FS 2.5 MG/3 ML VIAL.NEB NEB SCH ×4 (02:24→19:46)
[2022-06-29] MEDS: IPRATROPIUM NEB FS 0.5 MG/2.5 ML AMPUL.NEB NEB SCH ×4 (02:24→19:46)
[2022-06-29] MEDS: BACLOFEN (10 MG) 10 MG TABLET JT SCH ×4 (05:24→23:17)
[2022-06-29] MEDS: METOCLOPRAMIDE HCL 10 MG/10 ML UDC JT SCH ×4 (05:24→23:17)
[2022-06-29] MEDS: SIMETHICONE SUSP 40 MG/0.6 ML BOTTLE JT SCH ×4 (05:24→23:17)
[2022-06-29] MEDS: ERYTHROMYCIN ETHYLSUCCINATE 200 MG/5 ML SUSPENSION JT SCH ×4 (05:24→23:17)
[2022-06-29] MEDS: JEVITY 1.2 CAL 1,000 ML BOTTLE GT PRN (06:21)
[2022-06-29 07:32] VITALS: BP 132/79
[2022-06-29] MEDS: FERROUS SULFATE - FOR SA ONLY 330 MG/7.5 ML UDC JT SCH (08:53)
[2022-06-29] MEDS: LEVETIRACETAM SOL (5 ML) 100 MG/ML UDC JT SCH ×2 (08:53→20:21)
[2022-06-29] MEDS: CRANBERRY D MANNOSE JT SCH (08:53)
[2022-06-29] MEDS: CITRIC ACID/SODIUM CITRATE (BICITRA)15 ML UDC JT SCH ×4 (08:53→20:21)
[2022-06-29] MEDS: DOCUSATE SODIUM LIQ 100 MG/10 ML UDC JT SCH ×2 (08:53→16:18)
[2022-06-29] MEDS: [UNRECOGNIZED DRUG - REMARK] JT SCH (08:54)
[2022-06-29] MEDS: METOPROLOL TARTRATE 25 MG TABLET JT SCH ×2 (08:54→20:21)
[2022-06-29] MEDS: Z GUARD REMEDY 4 OZ OINT TP SCH ×4 (08:54→20:21)
[2022-06-29] MEDS: HYDROCODONE/APAP 5/325MG TABLET JT SCH (08:54)
[2022-06-29] MEDS: OMEPRAZOLE 20 MG CAPSULE.DR JT SCH ×2 (08:54→20:21)
[2022-06-29] MEDS: CHLORHEXIDINE GLUCONATE 15 ML UDC MM SCH ×2 (08:54→20:21)
[2022-06-29] MEDS: TIZANIDINE 2MG TABLET JT SCH ×2 (08:54→20:21)
[2022-06-29] MEDS: TOPIRAMATE 50 MG JT SCH ×2 (08:54→20:21)
[2022-06-29] MEDS: HYDROGEN PEROXIDE 480 ML BOTTLE TP SCH ×2 (09:19→21:16)
[2022-06-29 11:21] VITALS: BP 116/76
[2022-06-29 19:45] VITALS: BP 127/94
[2022-06-29] MEDS: SENNOSIDES 8.6 MG TABLET JT SCH (22:03)
[2022-06-29] MEDS: MULTIVIT W/MINERALS 1 TAB TABLET JT SCH (22:04)
[2022-06-30 00:12] VITALS: BP 119/73
[2022-06-30] MEDS: IPRATROPIUM NEB FS 0.5 MG/2.5 ML AMPUL.NEB NEB SCH ×4 (01:40→19:40)
[2022-06-30] MEDS: ALBUTEROL FS 2.5 MG/3 ML VIAL.NEB NEB SCH ×4 (01:40→19:40)
[2022-06-30] MEDS: SIMETHICONE SUSP 40 MG/0.6 ML BOTTLE JT SCH ×3 (05:38→17:47)
[2022-06-30] MEDS: BACLOFEN (10 MG) 10 MG TABLET JT SCH ×3 (05:38→17:47)
[2022-06-30] MEDS: ERYTHROMYCIN ETHYLSUCCINATE 200 MG/5 ML SUSPENSION JT SCH ×3 (05:38→17:47)
[2022-06-30] MEDS: METOCLOPRAMIDE HCL 10 MG/10 ML UDC JT SCH ×3 (05:38→17:47)
[2022-06-30 07:42] VITALS: BP 174/83
[2022-06-30] MEDS: HYDROGEN PEROXIDE 480 ML BOTTLE TP SCH ×2 (08:21→21:29)
[2022-06-30] MEDS: METOPROLOL TARTRATE 25 MG TABLET JT SCH ×2 (09:00→20:33)
[2022-06-30] MEDS: CRANBERRY D MANNOSE JT SCH (09:40)
[2022-06-30] MEDS: CITRIC ACID/SODIUM CITRATE (BICITRA)15 ML UDC JT SCH ×4 (09:40→20:31)
[2022-06-30] MEDS: DOCUSATE SODIUM LIQ 100 MG/10 ML UDC JT SCH ×2 (09:40→17:03)
[2022-06-30] MEDS: LEVETIRACETAM SOL (5 ML) 100 MG/ML UDC JT SCH ×2 (09:40→20:32)
[2022-06-30] MEDS: FERROUS SULFATE - FOR SA ONLY 330 MG/7.5 ML UDC JT SCH (09:40)
[2022-06-30] MEDS: [UNRECOGNIZED DRUG - REMARK] JT SCH (09:41)
[2022-06-30] MEDS: TIZANIDINE 2MG TABLET JT SCH ×2 (09:41→20:33)
[2022-06-30] MEDS: TOPIRAMATE 50 MG JT SCH ×2 (09:41→20:33)
[2022-06-30] MEDS: Z GUARD REMEDY 4 OZ OINT TP SCH ×4 (09:42→20:34)
[2022-06-30] MEDS: CHLORHEXIDINE GLUCONATE 15 ML UDC MM SCH ×2 (09:42→20:31)
[2022-06-30] MEDS: HYDROCODONE/APAP 5/325MG TABLET JT SCH (09:42)
[2022-06-30] MEDS: OMEPRAZOLE 20 MG CAPSULE.DR JT SCH ×2 (09:42→20:34)
[2022-06-30 20:00] VITALS: BP 112/73
[2022-06-30] MEDS: MULTIVIT W/MINERALS 1 TAB TABLET JT SCH (21:40)
[2022-06-30] MEDS: SENNOSIDES 8.6 MG TABLET JT SCH (21:40)
[2022-07-01] MEDS: ERYTHROMYCIN ETHYLSUCCINATE 200 MG/5 ML SUSPENSION JT SCH ×4 (00:25→18:01)
[2022-07-01] MEDS: BACLOFEN (10 MG) 10 MG TABLET JT SCH ×4 (00:25→18:01)
[2022-07-01] MEDS: METOCLOPRAMIDE HCL 10 MG/10 ML UDC JT SCH ×4 (00:26→18:01)
[2022-07-01] MEDS: SIMETHICONE SUSP 40 MG/0.6 ML BOTTLE JT SCH ×4 (00:26→18:01)
[2022-07-01] MEDS: IPRATROPIUM NEB FS 0.5 MG/2.5 ML AMPUL.NEB NEB SCH ×4 (01:39→19:58)
[2022-07-01] MEDS: ALBUTEROL FS 2.5 MG/3 ML VIAL.NEB NEB SCH ×4 (01:39→19:58)
[2022-07-01] MEDS: HYDROGEN PEROXIDE 480 ML BOTTLE TP SCH ×2 (09:20→21:13)
[2022-07-01] MEDS: FERROUS SULFATE - FOR SA ONLY 330 MG/7.5 ML UDC JT SCH (09:40)
[2022-07-01] MEDS: CITRIC ACID/SODIUM CITRATE (BICITRA)15 ML UDC JT SCH ×4 (09:40→20:18)
[2022-07-01] MEDS: DOCUSATE SODIUM LIQ 100 MG/10 ML UDC JT SCH ×2 (09:40→16:47)
[2022-07-01] MEDS: CRANBERRY D MANNOSE JT SCH (09:40)
[2022-07-01] MEDS: LEVETIRACETAM SOL (5 ML) 100 MG/ML UDC JT SCH ×2 (09:40→20:18)
[2022-07-01] MEDS: TIZANIDINE 2MG TABLET JT SCH ×2 (09:41→20:20)
[2022-07-01] MEDS: [UNRECOGNIZED DRUG - REMARK] JT SCH (09:41)
[2022-07-01] MEDS: HYDROCODONE/APAP 5/325MG TABLET JT SCH (09:41)
[2022-07-01] MEDS: METOPROLOL TARTRATE 25 MG TABLET JT SCH ×2 (09:41→20:19)
[2022-07-01] MEDS: OMEPRAZOLE 20 MG CAPSULE.DR JT SCH ×2 (09:41→20:21)
[2022-07-01] MEDS: CHLORHEXIDINE GLUCONATE 15 ML UDC MM SCH ×2 (09:41→20:21)
[2022-07-01] MEDS: TOPIRAMATE 50 MG JT SCH ×2 (09:41→20:20)
[2022-07-01] MEDS: Z GUARD REMEDY 4 OZ OINT TP SCH ×4 (09:42→20:21)
[2022-07-01 20:02] VITALS: BP 140/99
[2022-07-01] MEDS: MULTIVIT W/MINERALS 1 TAB TABLET JT SCH (21:18)
[2022-07-01] MEDS: SENNOSIDES 8.6 MG TABLET JT SCH (21:18)
[2022-07-02] MEDS: ERYTHROMYCIN ETHYLSUCCINATE 200 MG/5 ML SUSPENSION JT SCH ×5 (00:20→23:21)
[2022-07-02] MEDS: BACLOFEN (10 MG) 10 MG TABLET JT SCH ×5 (00:21→23:21)
[2022-07-02] MEDS: METOCLOPRAMIDE HCL 10 MG/10 ML UDC JT SCH ×5 (00:22→23:21)
[2022-07-02] MEDS: SIMETHICONE SUSP 40 MG/0.6 ML BOTTLE JT SCH ×5 (00:22→23:21)
[2022-07-02] MEDS: ALBUTEROL FS 2.5 MG/3 ML VIAL.NEB NEB SCH ×4 (01:43→19:51)
[2022-07-02] MEDS: IPRATROPIUM NEB FS 0.5 MG/2.5 ML AMPUL.NEB NEB SCH ×4 (01:43→19:51)
[2022-07-02] MEDS: JEVITY 1.2 CAL 1,000 ML BOTTLE GT PRN (05:59)
[2022-07-02 08:00] VITALS: BP 131/92
[2022-07-02] MEDS: CRANBERRY D MANNOSE JT SCH (09:13)
[2022-07-02] MEDS: CITRIC ACID/SODIUM CITRATE (BICITRA)15 ML UDC JT SCH ×4 (09:13→21:24)
[2022-07-02] MEDS: FERROUS SULFATE - FOR SA ONLY 330 MG/7.5 ML UDC JT SCH (09:13)
[2022-07-02] MEDS: LEVETIRACETAM SOL (5 ML) 100 MG/ML UDC JT SCH ×2 (09:13→21:24)
[2022-07-02] MEDS: DOCUSATE SODIUM LIQ 100 MG/10 ML UDC JT SCH ×2 (09:13→17:25)
[2022-07-02] MEDS: HYDROCODONE/APAP 5/325MG TABLET JT SCH (09:14)
[2022-07-02] MEDS: [UNRECOGNIZED DRUG - REMARK] JT SCH (09:14)
[2022-07-02] MEDS: METOPROLOL TARTRATE 25 MG TABLET JT SCH ×2 (09:14→21:24)
[2022-07-02] MEDS: TIZANIDINE 2MG TABLET JT SCH ×2 (09:14→21:24)
[2022-07-02] MEDS: CHLORHEXIDINE GLUCONATE 15 ML UDC MM SCH ×2 (09:14→21:24)
[2022-07-02] MEDS: OMEPRAZOLE 20 MG CAPSULE.DR JT SCH ×2 (09:14→21:24)
[2022-07-02] MEDS: TOPIRAMATE 50 MG JT SCH ×2 (09:14→21:24)
[2022-07-02] MEDS: Z GUARD REMEDY 4 OZ OINT TP SCH ×4 (09:14→21:24)
[2022-07-02] MEDS: HYDROGEN PEROXIDE 480 ML BOTTLE TP SCH ×2 (09:16→21:02)
[2022-07-02 12:00] VITALS: BP 117/74
[2022-07-02 20:24] VITALS: BP 127/92
[2022-07-02] MEDS: MULTIVIT W/MINERALS 1 TAB TABLET JT SCH (21:24)
[2022-07-02] MEDS: SENNOSIDES 8.6 MG TABLET JT SCH (21:24)
[2022-07-03] MEDS: ALBUTEROL FS 2.5 MG/3 ML VIAL.NEB NEB SCH ×4 (01:39→20:10)
[2022-07-03] MEDS: IPRATROPIUM NEB FS 0.5 MG/2.5 ML AMPUL.NEB NEB SCH ×4 (01:39→20:10)
[2022-07-03] MEDS: BACLOFEN (10 MG) 10 MG TABLET JT SCH ×4 (05:55→23:21)
[2022-07-03] MEDS: SIMETHICONE SUSP 40 MG/0.6 ML BOTTLE JT SCH ×4 (05:55→23:21)
[2022-07-03] MEDS: ERYTHROMYCIN ETHYLSUCCINATE 200 MG/5 ML SUSPENSION JT SCH ×4 (05:55→23:21)
[2022-07-03] MEDS: METOCLOPRAMIDE HCL 10 MG/10 ML UDC JT SCH ×4 (05:55→23:21)
[2022-07-03 07:23] VITALS: BP 126/86
[2022-07-03] MEDS: HYDROGEN PEROXIDE 480 ML BOTTLE TP SCH ×2 (08:47→20:10)
[2022-07-03] MEDS: ZINC OXIDE 30 GM TUBE TP SCH ×2 (09:00→20:47)
[2022-07-03] MEDS: Z GUARD REMEDY 4 OZ OINT TP SCH ×4 (09:00→20:47)
[2022-07-03] MEDS: OMEPRAZOLE 20 MG CAPSULE.DR JT SCH ×2 (09:00→20:47)
[2022-07-03] MEDS: CHLORHEXIDINE GLUCONATE 15 ML UDC MM SCH ×2 (09:00→20:47)
[2022-07-03] MEDS: CRANBERRY D MANNOSE JT SCH (09:58)
[2022-07-03] MEDS: DOCUSATE SODIUM LIQ 100 MG/10 ML UDC JT SCH ×2 (09:58→16:17)
[2022-07-03] MEDS: CITRIC ACID/SODIUM CITRATE (BICITRA)15 ML UDC JT SCH ×4 (09:58→20:46)
[2022-07-03] MEDS: FERROUS SULFATE - FOR SA ONLY 330 MG/7.5 ML UDC JT SCH (09:58)
[2022-07-03] MEDS: METOPROLOL TARTRATE 25 MG TABLET JT SCH ×2 (09:59→20:47)
[2022-07-03] MEDS: TOPIRAMATE 50 MG JT SCH ×2 (09:59→20:47)
[2022-07-03] MEDS: LEVETIRACETAM SOL (5 ML) 100 MG/ML UDC JT SCH ×2 (09:59→20:46)
[2022-07-03] MEDS: [UNRECOGNIZED DRUG - REMARK] JT SCH (09:59)
[2022-07-03] MEDS: TIZANIDINE 2MG TABLET JT SCH ×2 (09:59→20:47)
[2022-07-03] MEDS: HYDROCODONE/APAP 5/325MG TABLET JT SCH (10:00)
[2022-07-03 11:27] VITALS: BP 120/77
[2022-07-03] MEDS: JEVITY 1.2 CAL 1,000 ML BOTTLE GT PRN (17:28)
[2022-07-03 20:03] VITALS: BP 116/70
[2022-07-03] MEDS: SENNOSIDES 8.6 MG TABLET JT SCH (21:45)
[2022-07-03] MEDS: MULTIVIT W/MINERALS 1 TAB TABLET JT SCH (21:46)
[2022-07-04] MEDS: IPRATROPIUM NEB FS 0.5 MG/2.5 ML AMPUL.NEB NEB SCH ×4 (02:12→19:45)
[2022-07-04] MEDS: ALBUTEROL FS 2.5 MG/3 ML VIAL.NEB NEB SCH ×4 (02:12→19:45)
[2022-07-04] MEDS: SIMETHICONE SUSP 40 MG/0.6 ML BOTTLE JT SCH ×4 (05:23→23:28)
[2022-07-04] MEDS: METOCLOPRAMIDE HCL 10 MG/10 ML UDC JT SCH ×4 (05:23→23:28)
[2022-07-04] MEDS: ERYTHROMYCIN ETHYLSUCCINATE 200 MG/5 ML SUSPENSION JT SCH ×4 (05:23→23:28)
[2022-07-04] MEDS: BACLOFEN (10 MG) 10 MG TABLET JT SCH ×4 (05:23→23:28)
[2022-07-04 08:00] VITALS: BP 150/105
[2022-07-04] MEDS: HYDROGEN PEROXIDE 480 ML BOTTLE TP SCH ×2 (09:14→19:45)
[2022-07-04] MEDS: DOCUSATE SODIUM LIQ 100 MG/10 ML UDC JT SCH ×2 (09:31→17:17)
[2022-07-04] MEDS: CITRIC ACID/SODIUM CITRATE (BICITRA)15 ML UDC JT SCH ×4 (09:31→20:40)
[2022-07-04] MEDS: FERROUS SULFATE - FOR SA ONLY 330 MG/7.5 ML UDC JT SCH (09:31)
[2022-07-04] MEDS: CRANBERRY D MANNOSE JT SCH (09:32)
[2022-07-04] MEDS: LEVETIRACETAM SOL (5 ML) 100 MG/ML UDC JT SCH ×2 (09:32→20:40)
[2022-07-04] MEDS: METOPROLOL TARTRATE 25 MG TABLET JT SCH ×2 (09:33→20:40)
[2022-07-04] MEDS: [UNRECOGNIZED DRUG - REMARK] JT SCH (09:34)
[2022-07-04] MEDS: TOPIRAMATE 50 MG JT SCH ×2 (09:34→20:40)
[2022-07-04] MEDS: TIZANIDINE 2MG TABLET JT SCH ×2 (09:34→20:40)
[2022-07-04] MEDS: HYDROCODONE/APAP 5/325MG TABLET JT SCH (09:35)
[2022-07-04] MEDS: Z GUARD REMEDY 4 OZ OINT TP SCH ×4 (09:36→20:40)
[2022-07-04] MEDS: CHLORHEXIDINE GLUCONATE 15 ML UDC MM SCH ×2 (09:36→20:40)
[2022-07-04] MEDS: ZINC OXIDE 30 GM TUBE TP SCH ×2 (09:36→20:40)
[2022-07-04] MEDS: OMEPRAZOLE 20 MG CAPSULE.DR JT SCH ×2 (09:36→20:40)
[2022-07-04 12:00] VITALS: BP 131/92
[2022-07-04 18:57] VITALS: BP 137/98
[2022-07-04] MEDS: MULTIVIT W/MINERALS 1 TAB TABLET JT SCH (21:10)
[2022-07-04] MEDS: SENNOSIDES 8.6 MG TABLET JT SCH (21:10)
[2022-07-04 23:52] VITALS: BP 98/58
[2022-07-05] MEDS: IPRATROPIUM NEB FS 0.5 MG/2.5 ML AMPUL.NEB NEB SCH ×4 (02:03→20:09)
[2022-07-05] MEDS: ALBUTEROL FS 2.5 MG/3 ML VIAL.NEB NEB SCH ×4 (02:03→20:09)
[2022-07-05] MEDS: BACLOFEN (10 MG) 10 MG TABLET JT SCH ×4 (05:18→23:48)
[2022-07-05] MEDS: SIMETHICONE SUSP 40 MG/0.6 ML BOTTLE JT SCH ×4 (05:18→23:48)
[2022-07-05] MEDS: METOCLOPRAMIDE HCL 10 MG/10 ML UDC JT SCH ×4 (05:18→23:48)
[2022-07-05] MEDS: ERYTHROMYCIN ETHYLSUCCINATE 200 MG/5 ML SUSPENSION JT SCH ×4 (05:18→23:48)
[2022-07-05 07:34] VITALS: BP 111/70
[2022-07-05] MEDS: LEVETIRACETAM SOL (5 ML) 100 MG/ML UDC JT SCH ×2 (08:44→20:25)
[2022-07-05] MEDS: DOCUSATE SODIUM LIQ 100 MG/10 ML UDC JT SCH ×2 (08:44→17:39)
[2022-07-05] MEDS: FERROUS SULFATE - FOR SA ONLY 330 MG/7.5 ML UDC JT SCH (08:44)
[2022-07-05] MEDS: CRANBERRY D MANNOSE JT SCH (08:44)
[2022-07-05] MEDS: CITRIC ACID/SODIUM CITRATE (BICITRA)15 ML UDC JT SCH ×4 (08:44→20:25)
[2022-07-05] MEDS: HYDROCODONE/APAP 5/325MG TABLET JT SCH (08:45)
[2022-07-05] MEDS: CHLORHEXIDINE GLUCONATE 15 ML UDC MM SCH ×2 (08:45→20:26)
[2022-07-05] MEDS: TIZANIDINE 2MG TABLET JT SCH ×2 (08:45→20:26)
[2022-07-05] MEDS: TOPIRAMATE 50 MG JT SCH ×2 (08:45→20:26)
[2022-07-05] MEDS: OMEPRAZOLE 20 MG CAPSULE.DR JT SCH ×2 (08:45→20:26)
[2022-07-05] MEDS: METOPROLOL TARTRATE 25 MG TABLET JT SCH ×2 (08:45→20:26)
[2022-07-05] MEDS: [UNRECOGNIZED DRUG - REMARK] JT SCH (08:45)
[2022-07-05] MEDS: Z GUARD REMEDY 4 OZ OINT TP SCH ×4 (08:46→20:26)
[2022-07-05] MEDS: ZINC OXIDE 30 GM TUBE TP SCH ×2 (08:46→20:26)
[2022-07-05] MEDS: HYDROGEN PEROXIDE 480 ML BOTTLE TP SCH ×2 (09:34→20:09)
[2022-07-05] MEDS: JEVITY 1.2 CAL 1,000 ML BOTTLE GT PRN (19:00)
[2022-07-05 19:26] VITALS: BP 130/85
[2022-07-05] MEDS: MULTIVIT W/MINERALS 1 TAB TABLET JT SCH (21:02)
[2022-07-05] MEDS: SENNOSIDES 8.6 MG TABLET JT SCH (21:02)
[2022-07-06] MEDS: ALBUTEROL FS 2.5 MG/3 ML VIAL.NEB NEB SCH ×4 (01:20→18:58)
[2022-07-06] MEDS: IPRATROPIUM NEB FS 0.5 MG/2.5 ML AMPUL.NEB NEB SCH ×4 (01:20→18:58)
[2022-07-06] MEDS: BACLOFEN (10 MG) 10 MG TABLET JT SCH ×4 (05:13→23:10)
[2022-07-06] MEDS: METOCLOPRAMIDE HCL 10 MG/10 ML UDC JT SCH ×4 (05:13→23:10)
[2022-07-06] MEDS: SIMETHICONE SUSP 40 MG/0.6 ML BOTTLE JT SCH ×4 (05:13→23:10)
[2022-07-06] MEDS: ERYTHROMYCIN ETHYLSUCCINATE 200 MG/5 ML SUSPENSION JT SCH ×4 (05:13→23:10)
[2022-07-06 07:30] VITALS: BP 108/64
[2022-07-06] MEDS: METOPROLOL TARTRATE 25 MG TABLET JT SCH ×2 (09:00→21:28)
[2022-07-06] MEDS: HYDROGEN PEROXIDE 480 ML BOTTLE TP SCH ×2 (09:16→20:14)
[2022-07-06] MEDS: LEVETIRACETAM SOL (5 ML) 100 MG/ML UDC JT SCH ×2 (09:21→21:27)
[2022-07-06] MEDS: DOCUSATE SODIUM LIQ 100 MG/10 ML UDC JT SCH ×2 (09:21→16:53)
[2022-07-06] MEDS: FERROUS SULFATE - FOR SA ONLY 330 MG/7.5 ML UDC JT SCH (09:21)
[2022-07-06] MEDS: CRANBERRY D MANNOSE JT SCH (09:22)
[2022-07-06] MEDS: [UNRECOGNIZED DRUG - REMARK] JT SCH (09:24)
[2022-07-06] MEDS: TOPIRAMATE 50 MG JT SCH ×2 (09:25→21:28)
[2022-07-06] MEDS: TIZANIDINE 2MG TABLET JT SCH ×2 (09:25→21:28)
[2022-07-06] MEDS: HYDROCODONE/APAP 5/325MG TABLET JT SCH (09:26)
[2022-07-06] MEDS: ZINC OXIDE 30 GM TUBE TP SCH ×2 (09:26→21:28)
[2022-07-06] MEDS: Z GUARD REMEDY 4 OZ OINT TP SCH ×4 (09:26→21:28)
[2022-07-06] MEDS: CITRIC ACID/SODIUM CITRATE (BICITRA)15 ML UDC JT SCH ×4 (09:26→21:27)
[2022-07-06] MEDS: CHLORHEXIDINE GLUCONATE 15 ML UDC MM SCH ×2 (09:26→21:28)
[2022-07-06] MEDS: OMEPRAZOLE 20 MG CAPSULE.DR JT SCH ×2 (09:26→21:28)
[2022-07-06 10:00] VITALS: BP 110/66
[2022-07-06] MEDS: JEVITY 1.2 CAL 1,000 ML BOTTLE GT PRN (15:00)
[2022-07-06 19:12] VITALS: BP 135/78
[2022-07-06] MEDS: MULTIVIT W/MINERALS 1 TAB TABLET JT SCH (21:28)
[2022-07-06] MEDS: SENNOSIDES 8.6 MG TABLET JT SCH (21:28)
[2022-07-07 00:06] VITALS: BP 119/74
[2022-07-07] MEDS: IPRATROPIUM NEB FS 0.5 MG/2.5 ML AMPUL.NEB NEB SCH ×4 (01:47→18:54)
[2022-07-07] MEDS: ALBUTEROL FS 2.5 MG/3 ML VIAL.NEB NEB SCH ×4 (01:47→18:54)
[2022-07-07] MEDS: SIMETHICONE SUSP 40 MG/0.6 ML BOTTLE JT SCH ×3 (05:41→17:15)
[2022-07-07] MEDS: BACLOFEN (10 MG) 10 MG TABLET JT SCH ×3 (05:41→17:15)
[2022-07-07] MEDS: ERYTHROMYCIN ETHYLSUCCINATE 200 MG/5 ML SUSPENSION JT SCH ×3 (05:41→17:15)
[2022-07-07] MEDS: METOCLOPRAMIDE HCL 10 MG/10 ML UDC JT SCH ×3 (05:41→17:15)
[2022-07-07 08:01] VITALS: BP 126/78
[2022-07-07] MEDS: HYDROGEN PEROXIDE 480 ML BOTTLE TP SCH ×2 (09:16→19:48)
[2022-07-07] MEDS: CRANBERRY D MANNOSE JT SCH (09:44)
[2022-07-07] MEDS: LEVETIRACETAM SOL (5 ML) 100 MG/ML UDC JT SCH ×2 (09:44→21:02)
[2022-07-07] MEDS: FERROUS SULFATE - FOR SA ONLY 330 MG/7.5 ML UDC JT SCH (09:44)
[2022-07-07] MEDS: CITRIC ACID/SODIUM CITRATE (BICITRA)15 ML UDC JT SCH ×4 (09:44→21:02)
[2022-07-07] MEDS: DOCUSATE SODIUM LIQ 100 MG/10 ML UDC JT SCH ×2 (09:44→16:30)
[2022-07-07] MEDS: [UNRECOGNIZED DRUG - REMARK] JT SCH (09:45)
[2022-07-07] MEDS: CHLORHEXIDINE GLUCONATE 15 ML UDC MM SCH ×2 (09:45→21:02)
[2022-07-07] MEDS: TIZANIDINE 2MG TABLET JT SCH ×2 (09:45→21:02)
[2022-07-07] MEDS: TOPIRAMATE 50 MG JT SCH ×2 (09:45→21:02)
[2022-07-07] MEDS: HYDROCODONE/APAP 5/325MG TABLET JT SCH (09:45)
[2022-07-07] MEDS: Z GUARD REMEDY 4 OZ OINT TP SCH ×4 (09:45→21:02)
[2022-07-07] MEDS: ZINC OXIDE 30 GM TUBE TP SCH ×2 (09:45→21:02)
[2022-07-07] MEDS: OMEPRAZOLE 20 MG CAPSULE.DR JT SCH ×2 (09:45→21:02)
[2022-07-07] MEDS: METOPROLOL TARTRATE 25 MG TABLET JT SCH ×2 (09:49→21:02)
[2022-07-07 12:20] VITALS: BP 128/73
[2022-07-07] MEDS: JEVITY 1.2 CAL 1,000 ML BOTTLE GT PRN (16:26)
[2022-07-07] MEDS: BISACODYL SUPP (10 MG) 10 MG/SUPP.RECT SUPP.RECT RC PRN (18:35)
[2022-07-07 18:54] VITALS: BP 137/79
[2022-07-07] MEDS: MULTIVIT W/MINERALS 1 TAB TABLET JT SCH (21:02)
[2022-07-07] MEDS: SENNOSIDES 8.6 MG TABLET JT SCH (21:02)
[2022-07-07 23:52] VITALS: BP 98/65
[2022-07-08] MEDS: ALBUTEROL FS 2.5 MG/3 ML VIAL.NEB NEB SCH ×4 (00:57→20:19)
[2022-07-08] MEDS: IPRATROPIUM NEB FS 0.5 MG/2.5 ML AMPUL.NEB NEB SCH ×4 (00:57→20:19)
[2022-07-08] MEDS: ERYTHROMYCIN ETHYLSUCCINATE 200 MG/5 ML SUSPENSION JT SCH ×4 (05:53→17:06)
[2022-07-08] MEDS: SIMETHICONE SUSP 40 MG/0.6 ML BOTTLE JT SCH ×4 (05:53→17:07)
[2022-07-08] MEDS: METOCLOPRAMIDE HCL 10 MG/10 ML UDC JT SCH ×4 (05:53→17:07)
[2022-07-08] MEDS: BACLOFEN (10 MG) 10 MG TABLET JT SCH ×4 (05:53→17:07)
[2022-07-08] MEDS: HYDROGEN PEROXIDE 480 ML BOTTLE TP SCH ×2 (08:07→21:17)
[2022-07-08] MEDS: CITRIC ACID/SODIUM CITRATE (BICITRA)15 ML UDC JT SCH ×4 (08:37→21:08)
[2022-07-08] MEDS: CRANBERRY D MANNOSE JT SCH (08:37)
[2022-07-08] MEDS: FERROUS SULFATE - FOR SA ONLY 330 MG/7.5 ML UDC JT SCH (08:37)
[2022-07-08] MEDS: LEVETIRACETAM SOL (5 ML) 100 MG/ML UDC JT SCH ×2 (08:37→21:08)
[2022-07-08] MEDS: DOCUSATE SODIUM LIQ 100 MG/10 ML UDC JT SCH ×2 (08:37→17:06)
[2022-07-08 08:38] VITALS: BP 133/93
[2022-07-08] MEDS: CHLORHEXIDINE GLUCONATE 15 ML UDC MM SCH ×2 (08:38→21:08)
[2022-07-08] MEDS: METOPROLOL TARTRATE 25 MG TABLET JT SCH ×2 (08:38→21:08)
[2022-07-08] MEDS: OMEPRAZOLE 20 MG CAPSULE.DR JT SCH ×2 (08:38→21:08)
[2022-07-08] MEDS: [UNRECOGNIZED DRUG - REMARK] JT SCH (08:38)
[2022-07-08] MEDS: TOPIRAMATE 50 MG JT SCH ×2 (08:38→21:17)
[2022-07-08] MEDS: ZINC OXIDE 30 GM TUBE TP SCH ×2 (08:38→21:09)
[2022-07-08] MEDS: TIZANIDINE 2MG TABLET JT SCH ×2 (08:38→21:08)
[2022-07-08] MEDS: Z GUARD REMEDY 4 OZ OINT TP SCH ×4 (08:38→21:09)
[2022-07-08] MEDS: HYDROCODONE/APAP 5/325MG TABLET JT SCH (08:39)
[2022-07-08 11:19] VITALS: BP 104/72
[2022-07-08] MEDS: JEVITY 1.2 CAL 1,000 ML BOTTLE GT PRN (17:10)
[2022-07-08] MEDS: BISACODYL SUPP (10 MG) 10 MG/SUPP.RECT SUPP.RECT RC PRN (18:52)
[2022-07-08 19:26] VITALS: BP 111/64
[2022-07-08] MEDS: SENNOSIDES 8.6 MG TABLET JT SCH (21:09)
[2022-07-08] MEDS: MULTIVIT W/MINERALS 1 TAB TABLET JT SCH (21:09)
[2022-07-09] MEDS: SIMETHICONE SUSP 40 MG/0.6 ML BOTTLE JT SCH ×5 (00:20→23:47)
[2022-07-09] MEDS: METOCLOPRAMIDE HCL 10 MG/10 ML UDC JT SCH ×5 (00:20→23:47)
[2022-07-09] MEDS: BACLOFEN (10 MG) 10 MG TABLET JT SCH ×5 (00:20→23:47)
[2022-07-09] MEDS: ERYTHROMYCIN ETHYLSUCCINATE 200 MG/5 ML SUSPENSION JT SCH ×5 (00:20→23:47)
[2022-07-09] MEDS: ALBUTEROL FS 2.5 MG/3 ML VIAL.NEB NEB SCH ×4 (01:29→19:40)
[2022-07-09] MEDS: IPRATROPIUM NEB FS 0.5 MG/2.5 ML AMPUL.NEB NEB SCH ×4 (01:29→19:40)
[2022-07-09 07:28] VITALS: BP 106/67
[2022-07-09] MEDS: METOPROLOL TARTRATE 25 MG TABLET JT SCH ×2 (09:00→21:14)
[2022-07-09] MEDS: HYDROGEN PEROXIDE 480 ML BOTTLE TP SCH ×2 (09:08→21:10)
[2022-07-09] MEDS: Z GUARD REMEDY 4 OZ OINT TP SCH ×4 (09:10→21:14)
[2022-07-09] MEDS: ZINC OXIDE 30 GM TUBE TP SCH ×2 (09:11→21:14)
[2022-07-09] MEDS: CHLORHEXIDINE GLUCONATE 15 ML UDC MM SCH ×2 (09:11→21:14)
[2022-07-09] MEDS: TOPIRAMATE 50 MG JT SCH ×2 (09:11→21:14)
[2022-07-09] MEDS: TIZANIDINE 2MG TABLET JT SCH ×2 (09:11→21:14)
[2022-07-09] MEDS: [UNRECOGNIZED DRUG - REMARK] JT SCH (09:12)
[2022-07-09] MEDS: CRANBERRY D MANNOSE JT SCH (09:13)
[2022-07-09] MEDS: LEVETIRACETAM SOL (5 ML) 100 MG/ML UDC JT SCH ×2 (09:13→21:08)
[2022-07-09] MEDS: OMEPRAZOLE 20 MG CAPSULE.DR JT SCH ×2 (09:14→21:14)
[2022-07-09] MEDS: FERROUS SULFATE - FOR SA ONLY 330 MG/7.5 ML UDC JT SCH (09:15)
[2022-07-09] MEDS: DOCUSATE SODIUM LIQ 100 MG/10 ML UDC JT SCH ×2 (09:15→16:43)
[2022-07-09] MEDS: HYDROCODONE/APAP 5/325MG TABLET JT SCH (09:18)
[2022-07-09] MEDS: CITRIC ACID/SODIUM CITRATE (BICITRA)15 ML UDC JT SCH ×4 (09:19→21:08)
[2022-07-09 11:51] VITALS: BP 113/74
[2022-07-09] MEDS: JEVITY 1.2 CAL 1,000 ML BOTTLE GT PRN (16:45)
[2022-07-09 19:22] VITALS: BP 130/81
[2022-07-09] MEDS: MULTIVIT W/MINERALS 1 TAB TABLET JT SCH (21:14)
[2022-07-09] MEDS: SENNOSIDES 8.6 MG TABLET JT SCH (21:14)
[2022-07-10] MEDS: IPRATROPIUM NEB FS 0.5 MG/2.5 ML AMPUL.NEB NEB SCH ×4 (01:36→19:30)
[2022-07-10] MEDS: ALBUTEROL FS 2.5 MG/3 ML VIAL.NEB NEB SCH ×4 (01:36→19:30)
[2022-07-10] MEDS: BACLOFEN (10 MG) 10 MG TABLET JT SCH ×3 (06:04→17:07)
[2022-07-10] MEDS: METOCLOPRAMIDE HCL 10 MG/10 ML UDC JT SCH ×3 (06:04→17:07)
[2022-07-10] MEDS: ERYTHROMYCIN ETHYLSUCCINATE 200 MG/5 ML SUSPENSION JT SCH ×3 (06:04→17:07)
[2022-07-10] MEDS: SIMETHICONE SUSP 40 MG/0.6 ML BOTTLE JT SCH ×3 (06:04→17:07)
[2022-07-10 07:13] VITALS: BP 137/93
[2022-07-10] MEDS: CITRIC ACID/SODIUM CITRATE (BICITRA)15 ML UDC JT SCH ×4 (09:00→21:11)
[2022-07-10] MEDS: TIZANIDINE 2MG TABLET JT SCH ×2 (09:00→21:11)
[2022-07-10] MEDS: CHLORHEXIDINE GLUCONATE 15 ML UDC MM SCH ×2 (09:00→21:12)
[2022-07-10] MEDS: DOCUSATE SODIUM LIQ 100 MG/10 ML UDC JT SCH ×2 (09:00→17:07)
[2022-07-10] MEDS: CRANBERRY D MANNOSE JT SCH (09:00)
[2022-07-10] MEDS: [UNRECOGNIZED DRUG - REMARK] JT SCH (09:00)
[2022-07-10] MEDS: ZINC OXIDE 30 GM TUBE TP SCH ×2 (09:00→21:12)
[2022-07-10] MEDS: Z GUARD REMEDY 4 OZ OINT TP SCH ×4 (09:00→21:12)
[2022-07-10] MEDS: LEVETIRACETAM SOL (5 ML) 100 MG/ML UDC JT SCH ×2 (09:00→21:11)
[2022-07-10] MEDS: TOPIRAMATE 50 MG JT SCH ×2 (09:00→21:11)
[2022-07-10] MEDS: METOPROLOL TARTRATE 25 MG TABLET JT SCH ×2 (09:00→21:11)
[2022-07-10] MEDS: HYDROCODONE/APAP 5/325MG TABLET JT SCH (09:00)
[2022-07-10] MEDS: FERROUS SULFATE - FOR SA ONLY 330 MG/7.5 ML UDC JT SCH (09:00)
[2022-07-10] MEDS: OMEPRAZOLE 20 MG CAPSULE.DR JT SCH ×2 (09:00→21:12)
[2022-07-10] MEDS: HYDROGEN PEROXIDE 480 ML BOTTLE TP SCH ×2 (09:49→20:50)
[2022-07-10 11:38] VITALS: BP 100/67
[2022-07-10 19:39] VITALS: BP 122/75
[2022-07-10] MEDS: SENNOSIDES 8.6 MG TABLET JT SCH (21:12)
[2022-07-10] MEDS: MULTIVIT W/MINERALS 1 TAB TABLET JT SCH (21:12)
[2022-07-11] MEDS: SIMETHICONE SUSP 40 MG/0.6 ML BOTTLE JT SCH ×5 (00:01→23:28)
[2022-07-11] MEDS: BACLOFEN (10 MG) 10 MG TABLET JT SCH ×5 (00:01→23:28)
[2022-07-11] MEDS: ERYTHROMYCIN ETHYLSUCCINATE 200 MG/5 ML SUSPENSION JT SCH ×5 (00:01→23:28)
[2022-07-11] MEDS: JEVITY 1.2 CAL 1,000 ML BOTTLE GT PRN ×2 (00:01→18:33)
[2022-07-11] MEDS: METOCLOPRAMIDE HCL 10 MG/10 ML UDC JT SCH ×5 (00:01→23:28)
[2022-07-11] MEDS: IPRATROPIUM NEB FS 0.5 MG/2.5 ML AMPUL.NEB NEB SCH ×4 (01:07→19:52)
[2022-07-11] MEDS: ALBUTEROL FS 2.5 MG/3 ML VIAL.NEB NEB SCH ×4 (01:07→19:52)
[2022-07-11 07:10] VITALS: BP 138/87
[2022-07-11] MEDS: HYDROGEN PEROXIDE 480 ML BOTTLE TP SCH ×2 (08:00→19:52)
[2022-07-11] MEDS: TIZANIDINE 2MG TABLET JT SCH ×2 (08:46→20:27)
[2022-07-11] MEDS: CITRIC ACID/SODIUM CITRATE (BICITRA)15 ML UDC JT SCH ×4 (08:46→20:26)
[2022-07-11] MEDS: METOPROLOL TARTRATE 25 MG TABLET JT SCH ×2 (08:46→20:27)
[2022-07-11] MEDS: HYDROCODONE/APAP 5/325MG TABLET JT SCH (08:46)
[2022-07-11] MEDS: CRANBERRY D MANNOSE JT SCH (08:46)
[2022-07-11] MEDS: TOPIRAMATE 50 MG JT SCH ×2 (08:46→20:27)
[2022-07-11] MEDS: CHLORHEXIDINE GLUCONATE 15 ML UDC MM SCH ×2 (08:46→20:27)
[2022-07-11] MEDS: Z GUARD REMEDY 4 OZ OINT TP SCH ×4 (08:46→20:27)
[2022-07-11] MEDS: DOCUSATE SODIUM LIQ 100 MG/10 ML UDC JT SCH ×2 (08:46→16:47)
[2022-07-11] MEDS: [UNRECOGNIZED DRUG - REMARK] JT SCH (08:46)
[2022-07-11] MEDS: LEVETIRACETAM SOL (5 ML) 100 MG/ML UDC JT SCH ×2 (08:46→20:26)
[2022-07-11] MEDS: FERROUS SULFATE - FOR SA ONLY 330 MG/7.5 ML UDC JT SCH (08:46)
[2022-07-11] MEDS: OMEPRAZOLE 20 MG CAPSULE.DR JT SCH ×2 (08:46→20:27)
[2022-07-11] MEDS: ZINC OXIDE 30 GM TUBE TP SCH ×2 (08:47→20:30)
[2022-07-11 11:33] VITALS: BP_SYST 104; BP_SYST 138; BP_DIAS 70; BP_DIAS 87
[2022-07-11 19:29] VITALS: BP 118/70
[2022-07-11] MEDS: TRIAMCINOLONE ACETONIDE 0.1% CR 15 GM TUBE TP SCH (20:27)
[2022-07-11] MEDS: NYSTATIN CREAM 15 GM TUBE TP SCH (20:27)
[2022-07-11] MEDS: MULTIVIT W/MINERALS 1 TAB TABLET JT SCH (21:05)
[2022-07-11] MEDS: SENNOSIDES 8.6 MG TABLET JT SCH (21:05)
[2022-07-12 00:15] VITALS: BP 101/60
[2022-07-12] MEDS: IPRATROPIUM NEB FS 0.5 MG/2.5 ML AMPUL.NEB NEB SCH ×4 (02:03→19:54)
[2022-07-12] MEDS: ALBUTEROL FS 2.5 MG/3 ML VIAL.NEB NEB SCH ×4 (02:03→19:54)
[2022-07-12] MEDS: ERYTHROMYCIN ETHYLSUCCINATE 200 MG/5 ML SUSPENSION JT SCH ×4 (05:19→23:31)
[2022-07-12] MEDS: BACLOFEN (10 MG) 10 MG TABLET JT SCH ×4 (05:19→23:31)
[2022-07-12] MEDS: METOCLOPRAMIDE HCL 10 MG/10 ML UDC JT SCH ×4 (05:19→23:31)
[2022-07-12] MEDS: SIMETHICONE SUSP 40 MG/0.6 ML BOTTLE JT SCH ×4 (05:19→23:31)
[2022-07-12 07:22] VITALS: BP 114/78
[2022-07-12] MEDS: HYDROGEN PEROXIDE 480 ML BOTTLE TP SCH ×2 (08:08→21:55)
[2022-07-12] MEDS: CITRIC ACID/SODIUM CITRATE (BICITRA)15 ML UDC JT SCH ×4 (09:43→21:18)
[2022-07-12] MEDS: FERROUS SULFATE - FOR SA ONLY 330 MG/7.5 ML UDC JT SCH (09:46)
[2022-07-12] MEDS: DOCUSATE SODIUM LIQ 100 MG/10 ML UDC JT SCH ×2 (09:46→17:38)
[2022-07-12] MEDS: LEVETIRACETAM SOL (5 ML) 100 MG/ML UDC JT SCH ×2 (09:46→21:18)
[2022-07-12] MEDS: CRANBERRY D MANNOSE JT SCH (09:46)
[2022-07-12] MEDS: [UNRECOGNIZED DRUG - REMARK] JT SCH (09:47)
[2022-07-12] MEDS: METOPROLOL TARTRATE 25 MG TABLET JT SCH ×2 (09:47→21:19)
[2022-07-12] MEDS: TIZANIDINE 2MG TABLET JT SCH ×2 (09:48→21:19)
[2022-07-12] MEDS: TOPIRAMATE 50 MG JT SCH ×2 (09:48→21:19)
[2022-07-12] MEDS: HYDROCODONE/APAP 5/325MG TABLET JT SCH (09:50)
[2022-07-12] MEDS: TRIAMCINOLONE ACETONIDE 0.1% CR 15 GM TUBE TP SCH ×2 (09:50→21:19)
[2022-07-12] MEDS: CHLORHEXIDINE GLUCONATE 15 ML UDC MM SCH ×2 (09:50→21:19)
[2022-07-12] MEDS: OMEPRAZOLE 20 MG CAPSULE.DR JT SCH ×2 (09:50→21:19)
[2022-07-12] MEDS: NYSTATIN CREAM 15 GM TUBE TP SCH ×2 (09:51→21:19)
[2022-07-12] MEDS: Z GUARD REMEDY 4 OZ OINT TP SCH ×4 (09:51→21:20)
[2022-07-12] MEDS: ZINC OXIDE 30 GM TUBE TP SCH ×2 (09:52→21:20)
[2022-07-12 19:49] VITALS: BP 122/82
[2022-07-12] MEDS: SENNOSIDES 8.6 MG TABLET JT SCH (21:20)
[2022-07-12] MEDS: MULTIVIT W/MINERALS 1 TAB TABLET JT SCH (21:20)
[2022-07-13] MEDS: IPRATROPIUM NEB FS 0.5 MG/2.5 ML AMPUL.NEB NEB SCH ×4 (01:59→19:46)
[2022-07-13] MEDS: ALBUTEROL FS 2.5 MG/3 ML VIAL.NEB NEB SCH ×4 (01:59→19:46)
[2022-07-13] MEDS: ERYTHROMYCIN ETHYLSUCCINATE 200 MG/5 ML SUSPENSION JT SCH ×4 (05:00→23:38)
[2022-07-13] MEDS: JEVITY 1.2 CAL 1,000 ML BOTTLE GT PRN (05:00)
[2022-07-13] MEDS: BACLOFEN (10 MG) 10 MG TABLET JT SCH ×4 (05:00→23:38)
[2022-07-13] MEDS: SIMETHICONE SUSP 40 MG/0.6 ML BOTTLE JT SCH ×4 (05:00→23:38)
[2022-07-13] MEDS: METOCLOPRAMIDE HCL 10 MG/10 ML UDC JT SCH ×4 (05:00→23:38)
[2022-07-13 07:03] VITALS: BP 130/79
[2022-07-13] MEDS: HYDROGEN PEROXIDE 480 ML BOTTLE TP SCH ×2 (08:32→21:21)
[2022-07-13] MEDS: LEVETIRACETAM SOL (5 ML) 100 MG/ML UDC JT SCH ×2 (09:56→21:14)
[2022-07-13] MEDS: NYSTATIN CREAM 15 GM TUBE TP SCH ×2 (09:56→21:15)
[2022-07-13] MEDS: CITRIC ACID/SODIUM CITRATE (BICITRA)15 ML UDC JT SCH ×4 (09:56→21:12)
[2022-07-13] MEDS: ZINC OXIDE 30 GM TUBE TP SCH ×2 (09:56→21:15)
[2022-07-13] MEDS: TOPIRAMATE 50 MG JT SCH ×2 (09:56→21:15)
[2022-07-13] MEDS: FERROUS SULFATE - FOR SA ONLY 330 MG/7.5 ML UDC JT SCH (09:56)
[2022-07-13] MEDS: HYDROCODONE/APAP 5/325MG TABLET JT SCH (09:56)
[2022-07-13] MEDS: Z GUARD REMEDY 4 OZ OINT TP SCH ×4 (09:56→21:15)
[2022-07-13] MEDS: OMEPRAZOLE 20 MG CAPSULE.DR JT SCH ×2 (09:56→21:15)
[2022-07-13] MEDS: DOCUSATE SODIUM LIQ 100 MG/10 ML UDC JT SCH ×2 (09:56→17:06)
[2022-07-13] MEDS: METOPROLOL TARTRATE 25 MG TABLET JT SCH ×2 (09:56→21:15)
[2022-07-13] MEDS: TIZANIDINE 2MG TABLET JT SCH ×2 (09:56→21:15)
[2022-07-13] MEDS: [UNRECOGNIZED DRUG - REMARK] JT SCH (09:56)
[2022-07-13] MEDS: TRIAMCINOLONE ACETONIDE 0.1% CR 15 GM TUBE TP SCH ×2 (09:56→21:15)
[2022-07-13] MEDS: CHLORHEXIDINE GLUCONATE 15 ML UDC MM SCH ×2 (09:56→21:15)
[2022-07-13] MEDS: CRANBERRY D MANNOSE JT SCH (09:56)
[2022-07-13 12:36] VITALS: BP 134/91
[2022-07-13 20:31] VITALS: BP 124/87
[2022-07-13] MEDS: MULTIVIT W/MINERALS 1 TAB TABLET JT SCH (21:15)
[2022-07-13] MEDS: SENNOSIDES 8.6 MG TABLET JT SCH (21:15)
[2022-07-14] MEDS: IPRATROPIUM NEB FS 0.5 MG/2.5 ML AMPUL.NEB NEB SCH ×4 (01:39→19:55)
[2022-07-14] MEDS: ALBUTEROL FS 2.5 MG/3 ML VIAL.NEB NEB SCH ×4 (01:39→19:55)
[2022-07-14] MEDS: SIMETHICONE SUSP 40 MG/0.6 ML BOTTLE JT SCH ×3 (05:11→17:34)
[2022-07-14] MEDS: METOCLOPRAMIDE HCL 10 MG/10 ML UDC JT SCH ×3 (05:11→17:34)
[2022-07-14] MEDS: JEVITY 1.2 CAL 1,000 ML BOTTLE GT PRN (05:11)
[2022-07-14] MEDS: ERYTHROMYCIN ETHYLSUCCINATE 200 MG/5 ML SUSPENSION JT SCH ×3 (05:11→17:34)
[2022-07-14] MEDS: BACLOFEN (10 MG) 10 MG TABLET JT SCH ×3 (05:11→17:34)
[2022-07-14 07:06] VITALS: BP 116/74
[2022-07-14] MEDS: HYDROGEN PEROXIDE 480 ML BOTTLE TP SCH ×2 (08:25→21:05)
[2022-07-14] MEDS: DOCUSATE SODIUM LIQ 100 MG/10 ML UDC JT SCH ×2 (08:27→17:34)
[2022-07-14] MEDS: FERROUS SULFATE - FOR SA ONLY 330 MG/7.5 ML UDC JT SCH (08:27)
[2022-07-14] MEDS: METOPROLOL TARTRATE 25 MG TABLET JT SCH ×2 (08:27→20:55)
[2022-07-14] MEDS: LEVETIRACETAM SOL (5 ML) 100 MG/ML UDC JT SCH ×2 (08:27→20:54)
[2022-07-14] MEDS: CITRIC ACID/SODIUM CITRATE (BICITRA)15 ML UDC JT SCH ×4 (08:27→20:53)
[2022-07-14] MEDS: CRANBERRY D MANNOSE JT SCH (08:27)
[2022-07-14] MEDS: [UNRECOGNIZED DRUG - REMARK] JT SCH (08:29)
[2022-07-14] MEDS: OMEPRAZOLE 20 MG CAPSULE.DR JT SCH ×2 (08:29→20:56)
[2022-07-14] MEDS: TIZANIDINE 2MG TABLET JT SCH ×2 (08:29→20:56)
[2022-07-14] MEDS: TOPIRAMATE 50 MG JT SCH ×2 (08:29→20:56)
[2022-07-14] MEDS: HYDROCODONE/APAP 5/325MG TABLET JT SCH (08:36)
[2022-07-14] MEDS: CHLORHEXIDINE GLUCONATE 15 ML UDC MM SCH ×2 (09:00→20:56)
[2022-07-14] MEDS: ZINC OXIDE 30 GM TUBE TP SCH ×2 (09:34→20:57)
[2022-07-14] MEDS: TRIAMCINOLONE ACETONIDE 0.1% CR 15 GM TUBE TP SCH ×2 (09:34→20:56)
[2022-07-14] MEDS: NYSTATIN CREAM 15 GM TUBE TP SCH ×2 (09:34→20:56)
[2022-07-14] MEDS: Z GUARD REMEDY 4 OZ OINT TP SCH ×4 (09:34→20:56)
[2022-07-14 13:10] VITALS: BP 113/66
[2022-07-14 20:16] VITALS: BP 135/64
[2022-07-14] MEDS: MULTIVIT W/MINERALS 1 TAB TABLET JT SCH (22:19)
[2022-07-14] MEDS: SENNOSIDES 8.6 MG TABLET JT SCH (22:19)
[2022-07-15 00:05] VITALS: BP 114/77
[2022-07-15] MEDS: BACLOFEN (10 MG) 10 MG TABLET JT SCH ×4 (00:46→18:38)
[2022-07-15] MEDS: ERYTHROMYCIN ETHYLSUCCINATE 200 MG/5 ML SUSPENSION JT SCH ×4 (00:46→18:38)
[2022-07-15] MEDS: SIMETHICONE SUSP 40 MG/0.6 ML BOTTLE JT SCH ×4 (00:47→18:38)
[2022-07-15] MEDS: METOCLOPRAMIDE HCL 10 MG/10 ML UDC JT SCH ×4 (00:48→18:38)
[2022-07-15] MEDS: IPRATROPIUM NEB FS 0.5 MG/2.5 ML AMPUL.NEB NEB SCH ×4 (01:37→19:42)
[2022-07-15] MEDS: ALBUTEROL FS 2.5 MG/3 ML VIAL.NEB NEB SCH ×4 (01:37→19:42)
[2022-07-15] MEDS: JEVITY 1.2 CAL 1,000 ML BOTTLE GT PRN (04:27)
[2022-07-15 07:46] VITALS: BP 127/76
[2022-07-15] MEDS: ZINC OXIDE 30 GM TUBE TP SCH ×2 (09:00→20:29)
[2022-07-15] MEDS: CRANBERRY D MANNOSE JT SCH (09:00)
[2022-07-15] MEDS: TOPIRAMATE 50 MG JT SCH ×2 (09:00→20:28)
[2022-07-15] MEDS: CITRIC ACID/SODIUM CITRATE (BICITRA)15 ML UDC JT SCH ×4 (09:00→20:26)
[2022-07-15] MEDS: OMEPRAZOLE 20 MG CAPSULE.DR JT SCH ×2 (09:00→20:28)
[2022-07-15] MEDS: [UNRECOGNIZED DRUG - REMARK] JT SCH (09:00)
[2022-07-15] MEDS: LEVETIRACETAM SOL (5 ML) 100 MG/ML UDC JT SCH ×2 (09:00→20:26)
[2022-07-15] MEDS: FERROUS SULFATE - FOR SA ONLY 330 MG/7.5 ML UDC JT SCH (09:00)
[2022-07-15] MEDS: TRIAMCINOLONE ACETONIDE 0.1% CR 15 GM TUBE TP SCH ×2 (09:00→20:28)
[2022-07-15] MEDS: METOPROLOL TARTRATE 25 MG TABLET JT SCH ×2 (09:00→20:28)
[2022-07-15] MEDS: DOCUSATE SODIUM LIQ 100 MG/10 ML UDC JT SCH ×2 (09:00→17:13)
[2022-07-15] MEDS: HYDROCODONE/APAP 5/325MG TABLET JT SCH (09:00)
[2022-07-15] MEDS: TIZANIDINE 2MG TABLET JT SCH ×2 (09:00→20:28)
[2022-07-15] MEDS: Z GUARD REMEDY 4 OZ OINT TP SCH ×4 (09:00→20:28)
[2022-07-15] MEDS: CHLORHEXIDINE GLUCONATE 15 ML UDC MM SCH ×2 (09:00→20:28)
[2022-07-15] MEDS: NYSTATIN CREAM 15 GM TUBE TP SCH ×2 (09:00→20:28)
[2022-07-15] MEDS: HYDROGEN PEROXIDE 480 ML BOTTLE TP SCH ×2 (09:06→21:01)
[2022-07-15 11:22] VITALS: BP 112/73
[2022-07-15 20:16] VITALS: BP 130/87
[2022-07-15] MEDS: MULTIVIT W/MINERALS 1 TAB TABLET JT SCH (21:13)
[2022-07-15] MEDS: SENNOSIDES 8.6 MG TABLET JT SCH (21:13)
[2022-07-16] MEDS: ERYTHROMYCIN ETHYLSUCCINATE 200 MG/5 ML SUSPENSION JT SCH ×4 (00:13→17:47)
[2022-07-16] MEDS: BACLOFEN (10 MG) 10 MG TABLET JT SCH ×4 (00:15→17:47)
[2022-07-16] MEDS: METOCLOPRAMIDE HCL 10 MG/10 ML UDC JT SCH ×4 (00:15→17:47)
[2022-07-16] MEDS: SIMETHICONE SUSP 40 MG/0.6 ML BOTTLE JT SCH ×4 (00:15→17:47)
[2022-07-16] MEDS: ALBUTEROL FS 2.5 MG/3 ML VIAL.NEB NEB SCH ×4 (01:58→19:43)
[2022-07-16] MEDS: IPRATROPIUM NEB FS 0.5 MG/2.5 ML AMPUL.NEB NEB SCH ×4 (01:58→19:43)
[2022-07-16] MEDS: JEVITY 1.2 CAL 1,000 ML BOTTLE GT PRN (05:02)
[2022-07-16 07:31] VITALS: BP 127/81
[2022-07-16] MEDS: LEVETIRACETAM SOL (5 ML) 100 MG/ML UDC JT SCH ×2 (09:46→20:27)
[2022-07-16] MEDS: FERROUS SULFATE - FOR SA ONLY 330 MG/7.5 ML UDC JT SCH (09:46)
[2022-07-16] MEDS: DOCUSATE SODIUM LIQ 100 MG/10 ML UDC JT SCH ×2 (09:46→17:47)
[2022-07-16] MEDS: CITRIC ACID/SODIUM CITRATE (BICITRA)15 ML UDC JT SCH ×4 (09:46→20:26)
[2022-07-16] MEDS: CRANBERRY D MANNOSE JT SCH (09:46)
[2022-07-16] MEDS: OMEPRAZOLE 20 MG CAPSULE.DR JT SCH ×2 (09:47→20:29)
[2022-07-16] MEDS: METOPROLOL TARTRATE 25 MG TABLET JT SCH ×2 (09:47→20:29)
[2022-07-16] MEDS: [UNRECOGNIZED DRUG - REMARK] JT SCH (09:47)
[2022-07-16] MEDS: HYDROGEN PEROXIDE 480 ML BOTTLE TP SCH ×2 (09:47→21:06)
[2022-07-16] MEDS: HYDROCODONE/APAP 5/325MG TABLET JT SCH (09:47)
[2022-07-16] MEDS: TOPIRAMATE 50 MG JT SCH ×2 (09:47→20:29)
[2022-07-16] MEDS: CHLORHEXIDINE GLUCONATE 15 ML UDC MM SCH ×2 (09:47→20:29)
[2022-07-16] MEDS: TIZANIDINE 2MG TABLET JT SCH ×2 (09:47→20:29)
[2022-07-16] MEDS: Z GUARD REMEDY 4 OZ OINT TP SCH ×4 (09:48→20:30)
[2022-07-16] MEDS: TRIAMCINOLONE ACETONIDE 0.1% CR 15 GM TUBE TP SCH ×2 (09:48→20:30)
[2022-07-16] MEDS: ZINC OXIDE 30 GM TUBE TP SCH ×2 (09:48→20:30)
[2022-07-16] MEDS: NYSTATIN CREAM 15 GM TUBE TP SCH ×2 (09:48→20:30)
[2022-07-16 17:37] LABS: BASOPHILS # (AUTO) 0.1 K/uL (0.0-0.2); BASOPHILS % (AUTO) 0.4 % (0.0-2.0); EOSINOPHILS % (AUTO) 1.7 % (0.0-6.0); HEMATOCRIT 40 % (39-51); HEMOGLOBIN 13.3 g/dL (13.5-17.5); LYMPHOCYTES # (AUTO) 0.4 K/uL (0.8-4.8); LYMPHOCYTES % (AUTO) 2.1 % (20.0-44.0); MEAN CORPUSCULAR HGB CONC 33 g/dl (31.0-36.0); MEAN CORPUSCULAR VOLUME 88 fL (80-96); MONOCYTES # (AUTO) 0.7 K/uL (0.1-1.30); MONOCYTES % (AUTO) 3.9 % (2.0-12.0); NEUTROPHILS # (AUTO) 16.1 K/uL (1.8-8.9); NEUTROPHILS % (AUTO) 91.9 % (43.0-81.0); PLATELET COUNT (AUTO) 270 K/uL (150-450); RED BLOOD CELL COUNT(AUTO) 4.57 MIL/uL (4.5-6.0); WHITE BLOOD COUNT (AUTO) 17.5 K/uL (4.3-11.0)
[2022-07-16 17:49] LABS: CALCIUM, SERUM 9.4 mg/dL (8.5-10.1); CREATININE 0.9 mg/dL (0.6-1.3); POTASSIUM 3.6 mmol/L (3.5-5.1)
[2022-07-16] MEDS: IV D5/0.45 NACL 1,000 ML IV PRN (18:21)
[2022-07-16] MEDS: HYDROCODONE/APAP 5/325MG TABLET JT PRN (18:22)
[2022-07-16 19:48] LABS: BILIRUBIN,URINE NEGATIVE (NEGATIVE); COLOR,URINE YELLOW (YELLOW); LEUKOCYTE ESTERASE ,URINE TRACE (NEGATIVE); NITRITE, URINE POSITIVE (NEGATIVE); PH,URINE 8.5 (5.0-8.0); PROTEIN,URINE TRACE mg/dl (NEGATIVE); UGLUCOSE NEGATIVE (NEGATIVE); UROBILINOGEN,URINE 0.2 EU/dL (0.2)
[2022-07-16 19:53] VITALS: BP 121/70
[2022-07-16] MEDS ORDERED: VANCOMYCIN 1.25 GM in IV D5W 250 ML IV ONE (20:00)
[2022-07-16 20:45] LABS: BACTERIA,URINE Moderate /HPF (None Seen)
[2022-07-16 20:46] LABS: SQUAMOUS EPITHELIAL CELL,UR Few /HPF (None Seen)
[2022-07-16] MEDS: MEROPENEM 1 G in IV NS 0.9% 100 ML IV SCH (21:28)
[2022-07-16] MEDS: VANCOMYCIN 1 GM in IV D5W 250ml IV SCH (21:28)
[2022-07-16] MEDS: MULTIVIT W/MINERALS 1 TAB TABLET JT SCH (21:44)
[2022-07-16] MEDS: SENNOSIDES 8.6 MG TABLET JT SCH (21:44)
[2022-07-17] MEDS: BACLOFEN (10 MG) 10 MG TABLET JT SCH ×4 (00:17→17:45)
[2022-07-17] MEDS: SIMETHICONE SUSP 40 MG/0.6 ML BOTTLE JT SCH ×4 (00:17→17:45)
[2022-07-17] MEDS: ERYTHROMYCIN ETHYLSUCCINATE 200 MG/5 ML SUSPENSION JT SCH ×4 (00:17→17:45)
[2022-07-17] MEDS: METOCLOPRAMIDE HCL 10 MG/10 ML UDC JT SCH ×4 (00:17→17:45)
[2022-07-17] MEDS: IPRATROPIUM NEB FS 0.5 MG/2.5 ML AMPUL.NEB NEB SCH ×4 (01:33→20:18)
[2022-07-17] MEDS: ALBUTEROL FS 2.5 MG/3 ML VIAL.NEB NEB SCH ×4 (01:33→19:30)
[2022-07-17] MEDS: VANCOMYCIN 1 GM in IV D5W 250ml IV SCH ×3 (05:00→17:34)
[2022-07-17] MEDS: MEROPENEM 1 G in IV NS 0.9% 100 ML IV SCH ×3 (05:00→21:51)
[2022-07-17 07:36] VITALS: BP 123/84
[2022-07-17 07:44] LABS: CALCIUM, SERUM 8.5 mg/dL (8.5-10.1); CREATININE 0.8 mg/dL (0.6-1.3); POTASSIUM 2.9 mmol/L (3.5-5.1)
[2022-07-17] MEDS: LEVETIRACETAM SOL (5 ML) 100 MG/ML UDC JT SCH ×2 (09:00→21:00)
[2022-07-17] MEDS: NYSTATIN CREAM 15 GM TUBE TP SCH ×2 (09:00→21:00)
[2022-07-17] MEDS: Z GUARD REMEDY 4 OZ OINT TP SCH ×4 (09:00→21:00)
[2022-07-17] MEDS: TIZANIDINE 2MG TABLET JT SCH ×2 (09:00→21:00)
[2022-07-17] MEDS: OMEPRAZOLE 20 MG CAPSULE.DR JT SCH ×2 (09:00→21:00)
[2022-07-17] MEDS: METOPROLOL TARTRATE 25 MG TABLET JT SCH ×2 (09:00→21:00)
[2022-07-17] MEDS: ZINC OXIDE 30 GM TUBE TP SCH ×2 (09:00→21:00)
[2022-07-17] MEDS: CITRIC ACID/SODIUM CITRATE (BICITRA)15 ML UDC JT SCH ×4 (09:00→21:40)
[2022-07-17] MEDS: TOPIRAMATE 50 MG JT SCH ×2 (09:00→21:00)
[2022-07-17] MEDS: TRIAMCINOLONE ACETONIDE 0.1% CR 15 GM TUBE TP SCH ×2 (09:00→21:00)
[2022-07-17] MEDS: CRANBERRY D MANNOSE JT SCH (09:00)
[2022-07-17] MEDS: FERROUS SULFATE - FOR SA ONLY 330 MG/7.5 ML UDC JT SCH (09:00)
[2022-07-17] MEDS: CHLORHEXIDINE GLUCONATE 15 ML UDC MM SCH ×2 (09:00→21:00)
[2022-07-17] MEDS: DOCUSATE SODIUM LIQ 100 MG/10 ML UDC JT SCH ×2 (09:00→17:45)
[2022-07-17] MEDS: HYDROGEN PEROXIDE 480 ML BOTTLE TP SCH ×2 (09:16→20:20)
[2022-07-17 12:15] VITALS: BP 127/76
[2022-07-17] MEDS: IV D5/0.45 NACL 1,000 ML IV SCH ×2 (12:15→18:50)
[2022-07-17] MEDS: HYDROCODONE/APAP 5/325MG TABLET JT SCH (13:00)
[2022-07-17] MEDS: POTASSIUM CL. PREMIX PERIPHER. 50 ML IV SCH ×6 (13:27→19:00)
[2022-07-17] MEDS: ONDANSETRON 4 MG TAB.RAPDIS JT PRN (15:31)
[2022-07-17] MEDS: HYDROCODONE/APAP 5/325MG TABLET JT PRN (18:25)
[2022-07-17] MEDS ORDERED: MORPHINE SULFATE INJ 4 MG/ML DISP.SYRIN IV PRN (20:00)
[2022-07-17 20:03] VITALS: BP 132/86
[2022-07-17] MEDS: SENNOSIDES 8.6 MG TABLET JT SCH (22:35)
[2022-07-17] MEDS: MULTIVIT W/MINERALS 1 TAB TABLET JT SCH (22:35)
[2022-07-18] MEDS: ERYTHROMYCIN ETHYLSUCCINATE 200 MG/5 ML SUSPENSION JT SCH ×4 (00:07→17:16)
[2022-07-18] MEDS: METOCLOPRAMIDE HCL 10 MG/10 ML UDC JT SCH ×4 (00:07→17:16)
[2022-07-18] MEDS: BACLOFEN (10 MG) 10 MG TABLET JT SCH ×4 (00:07→17:16)
[2022-07-18] MEDS: SIMETHICONE SUSP 40 MG/0.6 ML BOTTLE JT SCH ×4 (00:07→17:16)
[2022-07-18] MEDS: ALBUTEROL FS 2.5 MG/3 ML VIAL.NEB NEB SCH ×4 (01:52→20:19)
[2022-07-18] MEDS: IPRATROPIUM NEB FS 0.5 MG/2.5 ML AMPUL.NEB NEB SCH ×4 (02:08→20:19)
[2022-07-18] MEDS: IV D5/0.45 NACL 1,000 ML IV PRN (03:42)
[2022-07-18] MEDS: VANCOMYCIN 1 GM in IV D5W 250ml IV SCH ×2 (05:33→17:35)
[2022-07-18] MEDS: MEROPENEM 1 G in IV NS 0.9% 100 ML IV SCH ×3 (05:33→21:29)
[2022-07-18] MEDS ORDERED: LORAZEPAM INJ 2 MG/ML VIAL IVP PRN (07:30)
[2022-07-18 07:34] VITALS: BP 138/89
[2022-07-18 08:09] LABS: BASOPHILS % (AUTO) 0.3 % (0.0-2.0); EOSINOPHILS % (AUTO) 1.9 % (0.0-6.0); HEMATOCRIT 38 % (39-51); HEMOGLOBIN 12.3 g/dL (13.5-17.5); LYMPHOCYTES # (AUTO) 1.2 K/uL (0.8-4.8); LYMPHOCYTES % (AUTO) 9.1 % (20.0-44.0); MEAN CORPUSCULAR HGB CONC 33 g/dl (31.0-36.0); MEAN CORPUSCULAR VOLUME 89 fL (80-96); MONOCYTES # (AUTO) 1.1 K/uL (0.1-1.30); MONOCYTES % (AUTO) 8.8 % (2.0-12.0); NEUTROPHILS # (AUTO) 10.4 K/uL (1.8-8.9); NEUTROPHILS % (AUTO) 79.9 % (43.0-81.0); PLATELET COUNT (AUTO) 253 K/uL (150-450); RED BLOOD CELL COUNT(AUTO) 4.24 MIL/uL (4.5-6.0)
[2022-07-18 08:20] LABS: CALCIUM, SERUM 8.9 mg/dL (8.5-10.1); CREATININE 0.8 mg/dL (0.6-1.3)
[2022-07-18] MEDS: NYSTATIN CREAM 15 GM TUBE TP SCH ×2 (09:00→21:06)
[2022-07-18] MEDS: CRANBERRY D MANNOSE JT SCH (09:00)
[2022-07-18] MEDS: DOCUSATE SODIUM LIQ 100 MG/10 ML UDC JT SCH ×2 (09:00→17:16)
[2022-07-18] MEDS: OMEPRAZOLE 20 MG CAPSULE.DR JT SCH (09:00)
[2022-07-18] MEDS: TOPIRAMATE 50 MG JT SCH ×2 (09:00→21:06)
[2022-07-18] MEDS: CITRIC ACID/SODIUM CITRATE (BICITRA)15 ML UDC JT SCH ×4 (09:00→21:04)
[2022-07-18] MEDS: LEVETIRACETAM SOL (5 ML) 100 MG/ML UDC JT SCH ×2 (09:00→21:04)
[2022-07-18] MEDS: FERROUS SULFATE - FOR SA ONLY 330 MG/7.5 ML UDC JT SCH (09:00)
[2022-07-18] MEDS: TRIAMCINOLONE ACETONIDE 0.1% CR 15 GM TUBE TP SCH ×2 (09:00→21:06)
[2022-07-18] MEDS: CHLORHEXIDINE GLUCONATE 15 ML UDC MM SCH ×2 (09:00→21:06)
[2022-07-18] MEDS: METOPROLOL TARTRATE 25 MG TABLET JT SCH ×2 (09:00→21:05)
[2022-07-18] MEDS: Z GUARD REMEDY 4 OZ OINT TP SCH ×4 (09:00→21:06)
[2022-07-18] MEDS: HYDROCODONE/APAP 5/325MG TABLET JT SCH (09:00)
[2022-07-18] MEDS: ZINC OXIDE 30 GM TUBE TP SCH ×2 (09:00→21:06)
[2022-07-18] MEDS: TIZANIDINE 2MG TABLET JT SCH ×2 (09:00→21:06)
[2022-07-18] MEDS: HYDROGEN PEROXIDE 480 ML BOTTLE TP SCH ×2 (09:06→20:19)
[2022-07-18] MEDS: POTASSIUM CL. PREMIX PERIPHER. 50 ML IV SCH ×6 (11:57→20:42)
[2022-07-18 12:18] VITALS: BP 144/82
[2022-07-18] MEDS: BISACODYL SUPP (10 MG) 10 MG/SUPP.RECT SUPP.RECT RC PRN (19:07)
[2022-07-18] MEDS: PANTOPRAZOLE 40 MG VIAL IV SCH (20:28)
[2022-07-18] MEDS: IV PREMIX D5 1/2NS + KCL 1,000 ML IV SCH (20:33)
[2022-07-18 20:52] VITALS: BP 120/78
[2022-07-18] MEDS: MULTIVIT W/MINERALS 1 TAB TABLET JT SCH (21:06)
[2022-07-18] MEDS: SENNOSIDES 8.6 MG TABLET JT SCH (21:06)
[2022-07-19] MEDS: SIMETHICONE SUSP 40 MG/0.6 ML BOTTLE JT SCH ×4 (00:22→17:45)
[2022-07-19] MEDS: BACLOFEN (10 MG) 10 MG TABLET JT SCH ×4 (00:22→17:45)
[2022-07-19] MEDS: ERYTHROMYCIN ETHYLSUCCINATE 200 MG/5 ML SUSPENSION JT SCH ×4 (00:22→17:45)
[2022-07-19] MEDS: METOCLOPRAMIDE HCL 10 MG/10 ML UDC JT SCH ×4 (00:22→17:45)
[2022-07-19] MEDS: IPRATROPIUM NEB FS 0.5 MG/2.5 ML AMPUL.NEB NEB SCH ×4 (01:59→20:00)
[2022-07-19] MEDS: ALBUTEROL FS 2.5 MG/3 ML VIAL.NEB NEB SCH ×4 (01:59→20:00)
[2022-07-19] MEDS: IV PREMIX D5 1/2NS + KCL 1,000 ML IV SCH (03:28)
[2022-07-19] MEDS: MEROPENEM 1 G in IV NS 0.9% 100 ML IV SCH ×3 (04:09→20:43)
[2022-07-19] MEDS: VANCOMYCIN 1 GM in IV D5W 250ml IV SCH ×3 (04:10→17:29)
[2022-07-19 07:33] VITALS: BP 157/93
[2022-07-19 07:47] LABS: CALCIUM, SERUM 8.7 mg/dL (8.5-10.1); CREATININE 0.6 mg/dL (0.6-1.3); POTASSIUM 3.9 mmol/L (3.5-5.1)
[2022-07-19] MEDS: PANTOPRAZOLE 40 MG VIAL IV SCH ×2 (08:43→20:43)
[2022-07-19] MEDS: HYDROGEN PEROXIDE 480 ML BOTTLE TP SCH ×2 (09:02→20:00)
[2022-07-19] MEDS: LEVETIRACETAM SOL (5 ML) 100 MG/ML UDC JT SCH ×2 (09:23→21:24)
[2022-07-19] MEDS: CITRIC ACID/SODIUM CITRATE (BICITRA)15 ML UDC JT SCH ×4 (09:23→21:24)
[2022-07-19] MEDS: CRANBERRY D MANNOSE JT SCH (09:23)
[2022-07-19] MEDS: TOPIRAMATE 50 MG JT SCH ×2 (09:23→21:24)
[2022-07-19] MEDS: METOPROLOL TARTRATE 25 MG TABLET JT SCH ×2 (09:23→21:24)
[2022-07-19] MEDS: FERROUS SULFATE - FOR SA ONLY 330 MG/7.5 ML UDC JT SCH (09:23)
[2022-07-19] MEDS: DOCUSATE SODIUM LIQ 100 MG/10 ML UDC JT SCH ×2 (09:23→17:45)
[2022-07-19] MEDS: TIZANIDINE 2MG TABLET JT SCH ×2 (09:23→21:24)
[2022-07-19] MEDS: Z GUARD REMEDY 4 OZ OINT TP SCH ×4 (09:24→21:24)
[2022-07-19] MEDS: CHLORHEXIDINE GLUCONATE 15 ML UDC MM SCH ×2 (09:24→21:24)
[2022-07-19] MEDS: TRIAMCINOLONE ACETONIDE 0.1% CR 15 GM TUBE TP SCH ×2 (09:24→21:24)
[2022-07-19] MEDS: ZINC OXIDE 30 GM TUBE TP SCH ×2 (09:24→21:24)
[2022-07-19] MEDS: NYSTATIN CREAM 15 GM TUBE TP SCH ×2 (09:24→21:24)
[2022-07-19] MEDS: HYDROCODONE/APAP 5/325MG TABLET JT SCH (09:24)
[2022-07-19] MEDS ORDERED: DIATR MEGLU/DIATRIZOATE SODIUM 30 ML BOTTLE (GASTROGRAPHIN) ONE (11:06)
[2022-07-19] MEDS: IV D5/0.45 NACL W/20 MEQ KCL 1L IV PRN ×2 (13:29)
[2022-07-19 19:20] VITALS: BP 118/73
[2022-07-19] MEDS: SENNOSIDES 8.6 MG TABLET JT SCH (21:24)
[2022-07-19] MEDS: MULTIVIT W/MINERALS 1 TAB TABLET JT SCH (21:24)
[2022-07-19 23:53] VITALS: BP 116/67
[2022-07-20] MEDS: IV D5/0.45 NACL W/20 MEQ KCL 1L IV PRN ×6 (00:28→23:16)
[2022-07-20] MEDS: BACLOFEN (10 MG) 10 MG TABLET JT SCH ×4 (00:30→17:40)
[2022-07-20] MEDS: ERYTHROMYCIN ETHYLSUCCINATE 200 MG/5 ML SUSPENSION JT SCH ×4 (00:30→17:40)
[2022-07-20] MEDS: SIMETHICONE SUSP 40 MG/0.6 ML BOTTLE JT SCH ×4 (00:30→17:40)
[2022-07-20] MEDS: METOCLOPRAMIDE HCL 10 MG/10 ML UDC JT SCH ×4 (00:31→17:40)
[2022-07-20] MEDS: ALBUTEROL FS 2.5 MG/3 ML VIAL.NEB NEB SCH ×4 (01:57→20:19)
[2022-07-20] MEDS: IPRATROPIUM NEB FS 0.5 MG/2.5 ML AMPUL.NEB NEB SCH ×4 (01:57→20:19)
[2022-07-20] MEDS: MEROPENEM 1 G in IV NS 0.9% 100 ML IV SCH ×3 (05:40→20:34)
[2022-07-20 07:35] VITALS: BP 128/83
[2022-07-20] MEDS: HYDROGEN PEROXIDE 480 ML BOTTLE TP SCH ×2 (08:01→20:19)
[2022-07-20] MEDS: DOCUSATE SODIUM LIQ 100 MG/10 ML UDC JT SCH ×2 (09:10→17:40)
[2022-07-20] MEDS: HYDROCODONE/APAP 5/325MG TABLET JT SCH (09:10)
[2022-07-20] MEDS: TIZANIDINE 2MG TABLET JT SCH ×2 (09:10→21:12)
[2022-07-20] MEDS: Z GUARD REMEDY 4 OZ OINT TP SCH ×4 (09:10→21:13)
[2022-07-20] MEDS: TOPIRAMATE 50 MG JT SCH ×2 (09:10→21:12)
[2022-07-20] MEDS: CRANBERRY D MANNOSE JT SCH (09:10)
[2022-07-20] MEDS: FERROUS SULFATE - FOR SA ONLY 330 MG/7.5 ML UDC JT SCH (09:10)
[2022-07-20] MEDS: CITRIC ACID/SODIUM CITRATE (BICITRA)15 ML UDC JT SCH ×4 (09:10→21:11)
[2022-07-20] MEDS: PANTOPRAZOLE 40 MG VIAL IV SCH ×2 (09:10→21:29)
[2022-07-20] MEDS: ZINC OXIDE 30 GM TUBE TP SCH ×2 (09:10→21:13)
[2022-07-20] MEDS: LEVETIRACETAM SOL (5 ML) 100 MG/ML UDC JT SCH ×2 (09:10→21:11)
[2022-07-20] MEDS: METOPROLOL TARTRATE 25 MG TABLET JT SCH ×2 (09:10→21:12)
[2022-07-20] MEDS: NYSTATIN CREAM 15 GM TUBE TP SCH ×2 (09:10→21:12)
[2022-07-20] MEDS: TRIAMCINOLONE ACETONIDE 0.1% CR 15 GM TUBE TP SCH ×2 (09:10→21:12)
[2022-07-20] MEDS: CHLORHEXIDINE GLUCONATE 15 ML UDC MM SCH ×2 (09:10→21:12)
[2022-07-20 11:16] VITALS: BP 98/56
[2022-07-20] MEDS: VANCOMYCIN HCL 0.75 GM in IV D5W 250 ML IV SCH (17:32)
[2022-07-20 19:19] VITALS: BP 122/79
[2022-07-20] MEDS: SENNOSIDES 8.6 MG TABLET JT SCH (21:13)
[2022-07-20] MEDS: MULTIVIT W/MINERALS 1 TAB TABLET JT SCH (21:13)
[2022-07-20 23:57] VITALS: BP 100/64
[2022-07-21] MEDS: BACLOFEN (10 MG) 10 MG TABLET JT SCH ×5 (00:37→23:40)
[2022-07-21] MEDS: ERYTHROMYCIN ETHYLSUCCINATE 200 MG/5 ML SUSPENSION JT SCH ×5 (00:37→23:40)
[2022-07-21] MEDS: METOCLOPRAMIDE HCL 10 MG/10 ML UDC JT SCH ×5 (00:37→23:40)
[2022-07-21] MEDS: SIMETHICONE SUSP 40 MG/0.6 ML BOTTLE JT SCH ×5 (00:37→23:40)
[2022-07-21] MEDS: IPRATROPIUM NEB FS 0.5 MG/2.5 ML AMPUL.NEB NEB SCH ×4 (02:15→20:19)
[2022-07-21] MEDS: ALBUTEROL FS 2.5 MG/3 ML VIAL.NEB NEB SCH ×4 (02:15→20:19)
[2022-07-21] MEDS: MEROPENEM 1 G in IV NS 0.9% 100 ML IV SCH ×2 (04:34→13:16)
[2022-07-21] MEDS: VANCOMYCIN HCL 0.75 GM in IV D5W 250 ML IV SCH (05:21)
[2022-07-21 07:39] VITALS: BP 129/91
[2022-07-21] MEDS: PANTOPRAZOLE 40 MG VIAL IV SCH ×2 (08:48→21:11)
[2022-07-21] MEDS: CITRIC ACID/SODIUM CITRATE (BICITRA)15 ML UDC JT SCH ×4 (09:12→21:11)
[2022-07-21] MEDS: CRANBERRY D MANNOSE JT SCH (09:12)
[2022-07-21] MEDS: DOCUSATE SODIUM LIQ 100 MG/10 ML UDC JT SCH ×2 (09:12→17:18)
[2022-07-21] MEDS: FERROUS SULFATE - FOR SA ONLY 330 MG/7.5 ML UDC JT SCH (09:12)
[2022-07-21] MEDS: TIZANIDINE 2MG TABLET JT SCH ×2 (09:13→21:12)
[2022-07-21] MEDS: TOPIRAMATE 50 MG JT SCH ×2 (09:13→21:12)
[2022-07-21] MEDS: HYDROCODONE/APAP 5/325MG TABLET JT SCH (09:13)
[2022-07-21] MEDS: METOPROLOL TARTRATE 25 MG TABLET JT SCH ×2 (09:13→21:12)
[2022-07-21] MEDS: LEVETIRACETAM SOL (5 ML) 100 MG/ML UDC JT SCH ×2 (09:13→21:11)
[2022-07-21] MEDS: CHLORHEXIDINE GLUCONATE 15 ML UDC MM SCH ×2 (09:14→21:12)
[2022-07-21] MEDS: Z GUARD REMEDY 4 OZ OINT TP SCH ×4 (09:14→21:12)
[2022-07-21] MEDS: TRIAMCINOLONE ACETONIDE 0.1% CR 15 GM TUBE TP SCH ×2 (09:14→21:12)
[2022-07-21] MEDS: NYSTATIN CREAM 15 GM TUBE TP SCH ×2 (09:14→21:12)
[2022-07-21] MEDS: ZINC OXIDE 30 GM TUBE TP SCH ×2 (09:15→21:12)
[2022-07-21] MEDS: HYDROGEN PEROXIDE 480 ML BOTTLE TP SCH ×2 (09:54→20:19)
[2022-07-21] MEDS: IV D5/0.45 NACL W/20 MEQ KCL 1L IV PRN ×4 (10:35→18:45)
[2022-07-21 11:43] VITALS: BP 138/86
[2022-07-21 20:07] VITALS: BP 124/71
[2022-07-21] MEDS: SENNOSIDES 8.6 MG TABLET JT SCH (21:12)
[2022-07-21] MEDS: MULTIVIT W/MINERALS 1 TAB TABLET JT SCH (21:12)
[2022-07-22 01:16] VITALS: BP 117/75
[2022-07-22] MEDS: IPRATROPIUM NEB FS 0.5 MG/2.5 ML AMPUL.NEB NEB SCH ×4 (02:11→20:21)
[2022-07-22] MEDS: ALBUTEROL FS 2.5 MG/3 ML VIAL.NEB NEB SCH ×4 (02:11→20:21)
[2022-07-22] MEDS: SIMETHICONE SUSP 40 MG/0.6 ML BOTTLE JT SCH ×3 (05:27→17:10)
[2022-07-22] MEDS: ERYTHROMYCIN ETHYLSUCCINATE 200 MG/5 ML SUSPENSION JT SCH ×3 (05:27→17:10)
[2022-07-22] MEDS: BACLOFEN (10 MG) 10 MG TABLET JT SCH ×3 (05:27→17:10)
[2022-07-22] MEDS: METOCLOPRAMIDE HCL 10 MG/10 ML UDC JT SCH ×3 (05:27→17:11)
[2022-07-22 07:14] LABS: CREATININE 0.6 mg/dL (0.6-1.3)
[2022-07-22 07:20] VITALS: BP 139/95
[2022-07-22] MEDS: PANTOPRAZOLE 40 MG VIAL IV SCH ×2 (09:00→21:30)
[2022-07-22] MEDS: FERROUS SULFATE - FOR SA ONLY 330 MG/7.5 ML UDC JT SCH (09:49)
[2022-07-22] MEDS: CRANBERRY D MANNOSE JT SCH (09:49)
[2022-07-22] MEDS: CITRIC ACID/SODIUM CITRATE (BICITRA)15 ML UDC JT SCH ×4 (09:49→21:30)
[2022-07-22] MEDS: DOCUSATE SODIUM LIQ 100 MG/10 ML UDC JT SCH ×2 (09:49→16:49)
[2022-07-22] MEDS: METOPROLOL TARTRATE 25 MG TABLET JT SCH ×2 (09:50→21:30)
[2022-07-22] MEDS: LEVETIRACETAM SOL (5 ML) 100 MG/ML UDC JT SCH ×2 (09:50→21:30)
[2022-07-22] MEDS: HYDROCODONE/APAP 5/325MG TABLET JT SCH (09:51)
[2022-07-22] MEDS: CHLORHEXIDINE GLUCONATE 15 ML UDC MM SCH ×2 (09:51→21:31)
[2022-07-22] MEDS: TIZANIDINE 2MG TABLET JT SCH ×2 (09:51→21:30)
[2022-07-22] MEDS: TOPIRAMATE 50 MG JT SCH ×2 (09:51→21:30)
[2022-07-22] MEDS: HYDROGEN PEROXIDE 480 ML BOTTLE TP SCH ×2 (09:51→21:00)
[2022-07-22] MEDS: NYSTATIN CREAM 15 GM TUBE TP SCH ×2 (09:53→21:31)
[2022-07-22] MEDS: Z GUARD REMEDY 4 OZ OINT TP SCH ×4 (09:53→21:31)
[2022-07-22] MEDS: TRIAMCINOLONE ACETONIDE 0.1% CR 15 GM TUBE TP SCH ×2 (09:53→21:31)
[2022-07-22] MEDS: ZINC OXIDE 30 GM TUBE TP SCH ×2 (09:54→21:31)
[2022-07-22 11:17] VITALS: BP 118/77
[2022-07-22 13:15] LABS: BASOPHILS # (AUTO) 0.1 K/uL (0.0-0.2); BASOPHILS % (AUTO) 1.1 % (0.0-2.0); EOSINOPHILS % (AUTO) 5.7 % (0.0-6.0); HEMATOCRIT 35 % (39-51); HEMOGLOBIN 11.6 g/dL (13.5-17.5); LYMPHOCYTES # (AUTO) 1.3 K/uL (0.8-4.8); LYMPHOCYTES % (AUTO) 19.6 % (20.0-44.0); MEAN CORPUSCULAR HGB CONC 33 g/dl (31.0-36.0); MEAN CORPUSCULAR VOLUME 88 fL (80-96); MONOCYTES # (AUTO) 0.7 K/uL (0.1-1.30); MONOCYTES % (AUTO) 10.7 % (2.0-12.0); NEUTROPHILS # (AUTO) 4.2 K/uL (1.8-8.9); NEUTROPHILS % (AUTO) 62.9 % (43.0-81.0); PLATELET COUNT (AUTO) 281 K/uL (150-450); RED BLOOD CELL COUNT(AUTO) 3.99 MIL/uL (4.5-6.0); WHITE BLOOD COUNT (AUTO) 6.7 K/uL (4.3-11.0)
[2022-07-22] MEDS: POLYVINYL ALCOHOL 15 ML BOTTLE EACHEYE PRN (13:29)
[2022-07-22 13:52] LABS: CALCIUM, SERUM 8.3 mg/dL (8.5-10.1); CREATININE 0.6 mg/dL (0.6-1.3); POTASSIUM 3.8 mmol/L (3.5-5.1)
[2022-07-22 19:49] VITALS: BP 142/83
[2022-07-22] MEDS: MULTIVIT W/MINERALS 1 TAB TABLET JT SCH (21:31)
[2022-07-22] MEDS: SENNOSIDES 8.6 MG TABLET JT SCH (21:31)
[2022-07-23] MEDS: METOCLOPRAMIDE HCL 10 MG/10 ML UDC JT SCH ×4 (00:46→17:24)
[2022-07-23] MEDS: BACLOFEN (10 MG) 10 MG TABLET JT SCH ×4 (00:46→17:24)
[2022-07-23] MEDS: ERYTHROMYCIN ETHYLSUCCINATE 200 MG/5 ML SUSPENSION JT SCH ×4 (00:46→17:24)
[2022-07-23] MEDS: SIMETHICONE SUSP 40 MG/0.6 ML BOTTLE JT SCH ×4 (00:46→17:24)
[2022-07-23] MEDS: IPRATROPIUM NEB FS 0.5 MG/2.5 ML AMPUL.NEB NEB SCH ×4 (02:14→20:17)
[2022-07-23] MEDS: ALBUTEROL FS 2.5 MG/3 ML VIAL.NEB NEB SCH ×4 (02:14→20:18)
[2022-07-23 07:11] LABS: BASOPHILS % (AUTO) 0.5 % (0.0-2.0); EOSINOPHILS % (AUTO) 3.7 % (0.0-6.0); HEMATOCRIT 36 % (39-51); LYMPHOCYTES # (AUTO) 1.6 K/uL (0.8-4.8); LYMPHOCYTES % (AUTO) 19.5 % (20.0-44.0); MEAN CORPUSCULAR HGB CONC 33 g/dl (31.0-36.0); MEAN CORPUSCULAR VOLUME 89 fL (80-96); MONOCYTES # (AUTO) 0.9 K/uL (0.1-1.30); MONOCYTES % (AUTO) 11.2 % (2.0-12.0); NEUTROPHILS # (AUTO) 5.3 K/uL (1.8-8.9); NEUTROPHILS % (AUTO) 65.1 % (43.0-81.0); PLATELET COUNT (AUTO) 302 K/uL (150-450); RED BLOOD CELL COUNT(AUTO) 4.08 MIL/uL (4.5-6.0); WHITE BLOOD COUNT (AUTO) 8.1 K/uL (4.3-11.0)
[2022-07-23 07:28] VITALS: BP 123/81
[2022-07-23 07:30] LABS: CALCIUM, SERUM 8.6 mg/dL (8.5-10.1); CREATININE 0.5 mg/dL (0.6-1.3); POTASSIUM 3.5 mmol/L (3.5-5.1)
[2022-07-23] MEDS: HYDROGEN PEROXIDE 480 ML BOTTLE TP SCH ×2 (08:18→20:18)
[2022-07-23] MEDS: PANTOPRAZOLE 40 MG VIAL IV SCH ×2 (09:00→21:37)
[2022-07-23] MEDS: CRANBERRY D MANNOSE JT SCH (09:54)
[2022-07-23] MEDS: DOCUSATE SODIUM LIQ 100 MG/10 ML UDC JT SCH ×2 (09:54→17:24)
[2022-07-23] MEDS: CITRIC ACID/SODIUM CITRATE (BICITRA)15 ML UDC JT SCH ×4 (09:54→21:37)
[2022-07-23] MEDS: FERROUS SULFATE - FOR SA ONLY 330 MG/7.5 ML UDC JT SCH (09:54)
[2022-07-23] MEDS: METOPROLOL TARTRATE 25 MG TABLET JT SCH ×2 (09:54→21:38)
[2022-07-23] MEDS: LEVETIRACETAM SOL (5 ML) 100 MG/ML UDC JT SCH ×2 (09:54→21:37)
[2022-07-23] MEDS: TRIAMCINOLONE ACETONIDE 0.1% CR 15 GM TUBE TP SCH ×2 (09:55→21:38)
[2022-07-23] MEDS: Z GUARD REMEDY 4 OZ OINT TP SCH ×4 (09:55→21:38)
[2022-07-23] MEDS: CHLORHEXIDINE GLUCONATE 15 ML UDC MM SCH ×2 (09:55→21:38)
[2022-07-23] MEDS: HYDROCODONE/APAP 5/325MG TABLET JT SCH (09:55)
[2022-07-23] MEDS: TIZANIDINE 2MG TABLET JT SCH ×2 (09:55→21:38)
[2022-07-23] MEDS: TOPIRAMATE 50 MG JT SCH ×2 (09:55→21:38)
[2022-07-23] MEDS: NYSTATIN CREAM 15 GM TUBE TP SCH ×2 (09:55→21:38)
[2022-07-23] MEDS: ZINC OXIDE 30 GM TUBE TP SCH ×2 (09:56→21:38)
[2022-07-23 11:21] VITALS: BP 105/70
[2022-07-23] MEDS: ACETAMINOPHEN 650 MG/20 ML UDC- SA PATIENTS-PAIN ONLY JT PRN (17:55)
[2022-07-23 19:55] VITALS: BP 128/89
[2022-07-23] MEDS: MULTIVIT W/MINERALS 1 TAB TABLET JT SCH (21:38)
[2022-07-23] MEDS: SENNOSIDES 8.6 MG TABLET JT SCH (21:38)
[2022-07-24] MEDS: METOCLOPRAMIDE HCL 10 MG/10 ML UDC JT SCH ×4 (00:52→17:17)
[2022-07-24] MEDS: SIMETHICONE SUSP 40 MG/0.6 ML BOTTLE JT SCH ×4 (00:52→17:17)
[2022-07-24] MEDS: ERYTHROMYCIN ETHYLSUCCINATE 200 MG/5 ML SUSPENSION JT SCH ×4 (00:52→17:17)
[2022-07-24] MEDS: BACLOFEN (10 MG) 10 MG TABLET JT SCH ×4 (00:52→17:17)
[2022-07-24] MEDS: IPRATROPIUM NEB FS 0.5 MG/2.5 ML AMPUL.NEB NEB SCH ×4 (02:24→19:29)
[2022-07-24] MEDS: ALBUTEROL FS 2.5 MG/3 ML VIAL.NEB NEB SCH ×4 (02:24→19:29)
[2022-07-24 07:18] VITALS: BP 140/93
[2022-07-24] MEDS: HYDROGEN PEROXIDE 480 ML BOTTLE TP SCH ×2 (08:11→19:29)
[2022-07-24] MEDS: TIZANIDINE 2MG TABLET JT SCH ×2 (08:27→21:50)
[2022-07-24] MEDS: CRANBERRY D MANNOSE JT SCH (08:27)
[2022-07-24] MEDS: TOPIRAMATE 50 MG JT SCH ×2 (08:27→21:50)
[2022-07-24] MEDS: CITRIC ACID/SODIUM CITRATE (BICITRA)15 ML UDC JT SCH ×4 (08:27→21:50)
[2022-07-24] MEDS: LEVETIRACETAM SOL (5 ML) 100 MG/ML UDC JT SCH ×2 (08:27→21:50)
[2022-07-24] MEDS: METOPROLOL TARTRATE 25 MG TABLET JT SCH ×2 (08:27→21:50)
[2022-07-24] MEDS: DOCUSATE SODIUM LIQ 100 MG/10 ML UDC JT SCH ×2 (08:27→17:17)
[2022-07-24] MEDS: FERROUS SULFATE - FOR SA ONLY 330 MG/7.5 ML UDC JT SCH (08:27)
[2022-07-24] MEDS: TRIAMCINOLONE ACETONIDE 0.1% CR 15 GM TUBE TP SCH ×5 (08:28→21:51)
[2022-07-24] MEDS: HYDROCODONE/APAP 5/325MG TABLET JT SCH (08:28)
[2022-07-24] MEDS: CHLORHEXIDINE GLUCONATE 15 ML UDC MM SCH ×2 (08:28→21:50)
[2022-07-24] MEDS: Z GUARD REMEDY 4 OZ OINT TP SCH ×4 (08:29→21:51)
[2022-07-24] MEDS: NYSTATIN CREAM 15 GM TUBE TP SCH ×5 (08:29→21:51)
[2022-07-24] MEDS: PANTOPRAZOLE 40 MG VIAL IV SCH ×2 (09:00→21:00)
[2022-07-24] MEDS ORDERED: DIATR MEGLU/DIATRIZOATE SODIUM 30 ML BOTTLE (GASTROGRAPHIN) ONE (09:26)
[2022-07-24 13:29] VITALS: BP 140/93
[2022-07-24 19:54] VITALS: BP 134/88
[2022-07-24] MEDS: SENNOSIDES 8.6 MG TABLET JT SCH (21:51)
[2022-07-24] MEDS: MULTIVIT W/MINERALS 1 TAB TABLET JT SCH (21:51)
[2022-07-25] MEDS: SIMETHICONE SUSP 40 MG/0.6 ML BOTTLE JT SCH ×4 (00:47→17:24)
[2022-07-25] MEDS: METOCLOPRAMIDE HCL 10 MG/10 ML UDC JT SCH ×4 (00:47→17:24)
[2022-07-25] MEDS: BACLOFEN (10 MG) 10 MG TABLET JT SCH ×4 (00:47→17:24)
[2022-07-25] MEDS: ERYTHROMYCIN ETHYLSUCCINATE 200 MG/5 ML SUSPENSION JT SCH ×4 (00:47→17:24)
[2022-07-25] MEDS: ALBUTEROL FS 2.5 MG/3 ML VIAL.NEB NEB SCH ×4 (01:16→19:59)
[2022-07-25] MEDS: IPRATROPIUM NEB FS 0.5 MG/2.5 ML AMPUL.NEB NEB SCH ×4 (01:16→19:59)
[2022-07-25 07:18] VITALS: BP 118/86
[2022-07-25] MEDS: HYDROGEN PEROXIDE 480 ML BOTTLE TP SCH ×2 (07:38→19:59)
[2022-07-25] MEDS: DOCUSATE SODIUM LIQ 100 MG/10 ML UDC JT SCH ×2 (09:31→16:24)
[2022-07-25] MEDS: FERROUS SULFATE - FOR SA ONLY 330 MG/7.5 ML UDC JT SCH (09:31)
[2022-07-25] MEDS: CITRIC ACID/SODIUM CITRATE (BICITRA)15 ML UDC JT SCH ×4 (09:31→20:52)
[2022-07-25] MEDS: LEVETIRACETAM SOL (5 ML) 100 MG/ML UDC JT SCH ×2 (09:32→20:52)
[2022-07-25] MEDS: CRANBERRY D MANNOSE JT SCH (09:32)
[2022-07-25] MEDS: TIZANIDINE 2MG TABLET JT SCH ×2 (09:33→20:52)
[2022-07-25] MEDS: HYDROCODONE/APAP 5/325MG TABLET JT SCH (09:33)
[2022-07-25] MEDS: TOPIRAMATE 50 MG JT SCH ×2 (09:33→20:52)
[2022-07-25] MEDS: CHLORHEXIDINE GLUCONATE 15 ML UDC MM SCH ×2 (09:33→20:52)
[2022-07-25] MEDS: TRIAMCINOLONE ACETONIDE 0.1% CR 15 GM TUBE TP SCH ×5 (09:33→20:53)
[2022-07-25] MEDS: METOPROLOL TARTRATE 25 MG TABLET JT SCH ×2 (09:33→20:52)
[2022-07-25] MEDS: Z GUARD REMEDY 4 OZ OINT TP SCH ×4 (09:34→20:53)
[2022-07-25] MEDS: NYSTATIN CREAM 15 GM TUBE TP SCH ×5 (09:34→20:53)
[2022-07-25] MEDS: PANTOPRAZOLE 40 MG VIAL IV SCH ×2 (09:51→21:00)
[2022-07-25 12:02] VITALS: BP 90/55
[2022-07-25 19:26] VITALS: BP 127/88
[2022-07-25] MEDS: MULTIVIT W/MINERALS 1 TAB TABLET JT SCH (21:08)
[2022-07-25] MEDS: SENNOSIDES 8.6 MG TABLET JT SCH (21:08)
[2022-07-26] MEDS: BACLOFEN (10 MG) 10 MG TABLET JT SCH ×3 (00:04→12:00)
[2022-07-26] MEDS: ERYTHROMYCIN ETHYLSUCCINATE 200 MG/5 ML SUSPENSION JT SCH ×3 (00:04→12:00)
[2022-07-26] MEDS: SIMETHICONE SUSP 40 MG/0.6 ML BOTTLE JT SCH ×3 (00:04→12:00)
[2022-07-26] MEDS: METOCLOPRAMIDE HCL 10 MG/10 ML UDC JT SCH ×3 (00:04→12:00)
[2022-07-26 01:04] VITALS: BP 118/76
[2022-07-26] MEDS: ALBUTEROL FS 2.5 MG/3 ML VIAL.NEB NEB SCH ×3 (01:29→13:48)
[2022-07-26] MEDS: IPRATROPIUM NEB FS 0.5 MG/2.5 ML AMPUL.NEB NEB SCH ×3 (01:29→13:48)
[2022-07-26 08:16] VITALS: BP 132/91
[2022-07-26] MEDS: TOPIRAMATE 50 MG JT SCH (09:00)
[2022-07-26] MEDS: TIZANIDINE 2MG TABLET JT SCH (09:00)
[2022-07-26] MEDS: LEVETIRACETAM SOL (5 ML) 100 MG/ML UDC JT SCH (09:00)
[2022-07-26] MEDS: TRIAMCINOLONE ACETONIDE 0.1% CR 15 GM TUBE TP SCH ×2 (09:00)
[2022-07-26] MEDS: PANTOPRAZOLE 40 MG VIAL IV SCH (09:00)
[2022-07-26] MEDS: DOCUSATE SODIUM LIQ 100 MG/10 ML UDC JT SCH (09:00)
[2022-07-26] MEDS: HYDROCODONE/APAP 5/325MG TABLET JT SCH (09:00)
[2022-07-26] MEDS: METOPROLOL TARTRATE 25 MG TABLET JT SCH (09:00)
[2022-07-26] MEDS: CITRIC ACID/SODIUM CITRATE (BICITRA)15 ML UDC JT SCH (09:00)
[2022-07-26] MEDS: CRANBERRY D MANNOSE JT SCH (09:00)
[2022-07-26] MEDS: NYSTATIN CREAM 15 GM TUBE TP SCH (09:00)
[2022-07-26] MEDS: FERROUS SULFATE - FOR SA ONLY 330 MG/7.5 ML UDC JT SCH (09:00)
[2022-07-26] MEDS: HYDROGEN PEROXIDE 480 ML BOTTLE TP SCH (09:04)
[2022-07-26] MEDS ORDERED: Potassium Chloride 20 MEQ in IV D5/ 0.9% NACL 1,000 ML IV ONE (13:42)
[2023-01-12] MEDS ORDERED: TUBERCULIN,PURIF.PROT.DERIV. 5 TU/0.1 ML VIAL ID SCH (09:00)
== END 2022-07-26 16:20 | disposition hospice, inpatient (51) | DRG 207 ==
LOC: SA
PROVIDERS: ADMIT Legal Medicine; ATTEND Legal Medicine
PROC: 5A1955Z Respiratory Ventilation, Greater than 96 Consecutive Hours (ICD-10-PCS; principal; 2022-05-08)
PROC: 05HA33Z Insertion of Infusion Device into Left Brachial Vein, Percutaneous Approach (ICD-10-PCS; 2022-05-08)
PROC: 06HM33Z Insertion of Infusion Device into Right Femoral Vein, Percutaneous Approach (ICD-10-PCS; 2022-07-18)
DX: J96.10 Chronic respiratory failure, unspecified whether with hypoxia or hypercapnia (principal); R53.2 Functional quadriplegia; G93.1 Anoxic brain damage, not elsewhere classified; N39.0 Urinary tract infection, site not specified; Z16.24 Resistance to multiple antibiotics; K56.7 Ileus, unspecified; G40.909 Epilepsy, unspecified, not intractable, without status epilepticus; G89.4 Chronic pain syndrome; Z20.822 Contact with and (suspected) exposure to COVID-19; Z74.01 Bed confinement status; R13.10 Dysphagia, unspecified; Z86.718 Personal history of other venous thrombosis and embolism; Z93.0 Tracheostomy status; Z93.1 Gastrostomy status; Z66 Do not resuscitate; Z51.5 Encounter for palliative care; Z87.01 Personal history of pneumonia (recurrent); Z79.899 Other long term (current) drug therapy; Z91.013 Allergy to seafood; Z87.820 Personal history of traumatic brain injury; M24.542 Contracture, left hand; M24.541 Contracture, right hand; M24.572 Contracture, left ankle; M24.571 Contracture, right ankle; L60.3 Nail dystrophy; I10 Essential (primary) hypertension; Z86.61 Personal history of infections of the central nervous system; Z86.73 Personal history of transient ischemic attack (TIA), and cerebral infarction without residual deficits; Z79.01 Long term (current) use of anticoagulants; R50.9 Fever, unspecified; B96.89 Other specified bacterial agents as the cause of diseases classified elsewhere; S11.90XD Unspecified open wound of unspecified part of neck, subsequent encounter; X58.XXXD Exposure to other specified factors, subsequent encounter
CPT/HCPCS: 31720; 36410; 36415; 36600; 71045-TC; 74018; 80048-TC; 80053-TC; 80150; 80202-TC; 81001; 82565-TC; 82803-TC; 83735-TC; 84520-TC; 85025-TC; 86580-TC; 87040-TC; 87086-TC; 94002; 94002-TC; 94003-TC; 94640-TC; 94760-TC; 94762-TC; 94799-TC; A4223; A4623; A6253; A7526; C9113; J0278; J2060; J2185; J2270; J2543; J3370; J3480; J3490; J7030; J7042; J7060; J8597; Q0162; Q9963; U0003

== ENCOUNTER 2022-07-26 14:13 | Inpatient (IN) | payer OTHER ==
[~2022-07-26] VITALS: Ht 165.1 cm; Wt 66.2 kg
[2022-07-26] MEDS ORDERED: MORPHINE SULFATE INJ 2 MG/ML DISP.SYRIN IV ONE (17:00)
[2022-07-26] MEDS ORDERED: ATROPINE SULFATE OPHTH SOLN 15 ML BOTTLE SL PRN (17:00)
[2022-07-26] MEDS ORDERED: ATROPINE SULFATE OPHTH SOLN 15 ML BOTTLE OP PRN (17:00)
--- NOTE | 2022-07-26 17:31 | NUR ---
RN ADMITTING NOTES RECEIVED PATIENT A/Ox1, ON MECHANICAL VENT. NO S/S OF RESPIRATORY DISTRESS. PATIENT ACCOMPANIED BY FAMILY AND SUB-ACUTE STAFF VIA BED. PATIENT IV ACCESS R FEMORAL MIDLINE, INTACT AND PATENT. PATIENT TRANSFERRED FOR ACUTE RESPIRATORY FAILURE, FOR COMFORT MEASURES ONLY. PATIENT AND FAMILY ORIENTED TO STAFF AND UNIT. PATIENT COMFORTABLE IN BED. ORDERS FAXED TO PHARMACY. SAFETY MEASURES IN PLACE: BED LOCKED AND IN LOWEST POSITION, HOB ELEVATED, CALL LIGHT WITHIN REACH, SIDE RAILS UPx2. WILL CONTINUE TO MONITOR.
--- NOTE | 2022-07-26 17:45 | NUR ---
RN NOTES-[facility] SPOKE TO KATJA FROM [facility], INFORMED KATJA ON PATIENT CHANGE IN CODE STATUS AND PENDING EXTUBATION. KATJA WANTED HISTORY AND IMMUNIZATIONS ON PATIENT, INFORMED TO BEST OF OUR ABILITIES, INFORMED KATJA THAT PATIENT WAS FROM SUB-ACUTE UNIT AND JUST ARRIVED TO FOR COMFORT CARE AND EXTUBATION. 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 MORPHINE DRIP DROPPED OFF DURING CALL WITH [facility] KATJA, INFORMED PHARMACY THAT PATIENT IS A REGISTERED ORGAN DONOR, PENDING CLEAR FROM [facility] TO BEGIN MORPHINE DRIP. CHARGE NURSE INFORMED. [facility] CALLED AGAIN, THIS TIME SPEAKING TO TAWANDA, INFORMED ON SITUATION AND GIVEN MUCH ADDITIONAL INFORMATION POSSIBLE ON PATIENT. TAWANDA THEN TRANSFERRED CALL TO SUB-ACUTE UNIT IN ORDER TO GET MORE INFORMATION ON PATIENT'S PAST HOSPITALIZATION HISTORY.
--- NOTE | 2022-07-26 18:05 | NUR ---
RN NOTES ONE IVONNE LOTT CALLED UNIT, ASKED FOR FAMILY CONTACT AND WAYS TO CONTACT. INFORMED THAT PATIENT'S FAMILY IS ON UNIT AND GAVE PHONE NUMBER OF MOTHER. KAYLIE INFORMED NURSE TO LET CHARGE NURSE KNOW, THAT NURSING CREW CALLER MUST BE NOTIFIED AND TO HOLD ON EXTUBATION.
--- NOTE | 2022-07-26 18:19 | NUR ---
RN NOTES PHARMACY NOTIFIED ON SITUATION, SPOKE TO GILMER, INFORMED ON MORPHINE BEING LOCKED IN NARCOTIC SAFE IN MED ROOM. AGREED WITH PROCEDURE, CHARGE NURSE AWARE.
[2022-07-26] MEDS ORDERED: KEY,NONCONTROL,TO KEEP IN PYXI 1 EA MC ONE (18:55)
[2022-07-26] MEDS: LORAZEPAM INJ 2 MG/ML VIAL IV PRN ×2 (19:00→23:13)
--- NOTE | 2022-07-26 19:05 | NUR ---
MS RN CLOSING NOTES PATIENT IN BED, RESTING, FAMILY AT BEDSIDE. A/Ox1 RESPONDS TO NAME, VERBAL AND TACTILE STIMULI. PATIENT ON MECHANICAL VENT O2:45%, PEEP 15, TIDAL 400. PRN ATIVAN GIVEN FOR RESTLESSNESS. IV ACCESS R FEMORAL MIDLINE. INTACT AND PATENT. COMFORT MEASURES IN PLACE, FAMILY PROVIDED WITH WATER AND BLANKETS. SAFETY MEASURES IN PLACE: BED LOCKED AND IN LOWEST POSITION, HOB ELEVATED, CALL LIGHT WITH REACH. WILL ENDORSE TO NEXT SHIFT ANY TWIN.
--- NOTE | 2022-07-26 19:53 | NUR ---
RN Opening Notes Pt in bed, resting, family at bedside. AOx1, responds to name, verbal, and tactile stimuli. On mechanical vent and tolerating well. No SOB noted. No s/sx of respiratory distress noted. IV access in R femoral midline. Safety precautions in place: bed in lowest, locked position, siderails upX2, and brakes on. Table and call light within reach. All needs met at this time.
[2022-07-26 20:00] VITALS: BP 117/66
--- NOTE | 2022-07-26 23:13 | NUR ---
RN Notes Administered ativan for restlessness per MD order. VS WNL.
--- NOTE | 2022-07-27 05:42 | NUR ---
RN Notes G-tube cardiac monitor under abdominal pad. No longer in place. Charge nurse, tj Decker.
--- NOTE | 2022-07-27 06:50 | NUR ---
RN Closing Notes Pt in bed, resting comfortably. AOx1, responds to name, verbal, and tactile stimuli. On mechanical vent and tolerating well. No SOB noted. No s/sx of respiratory distress noted. IV access in R femoral midline. All orders carried out. All needs met. Pt kept clean ad dry. Safety precautions in place: bed in lowest, locked position, siderails upX2, and brakes on. Table and call light within reach. All needs met at this time.
[2022-07-27 08:00] VITALS: BP 147/100
[2022-07-27] MEDS: LORAZEPAM INJ 2 MG/ML VIAL IV PRN ×3 (10:54→23:11)
[2022-07-27] MEDS ORDERED: KEY,NONCONTROL,TO KEEP IN PYXI 1 EA MC ONE ×2 (14:54→22:04)
[2022-07-27] MEDS ORDERED: MORPHINE SULFATE INJ 4 MG/ML DISP.SYRIN IV ONE (15:30)
[2022-07-27] MEDS ORDERED: LORAZEPAM INJ 2 MG/ML VIAL IV PRN (15:30)
[2022-07-27 16:00] VITALS: BP 132/87
--- NOTE | 2022-07-27 18:16 | NUR ---
RT NOTE PATIENT TAKEN OFF VENTILATOR PER MD ORDER AND PLACED ON 1LPM VIA TRACH MASK. Addendum: 07/27/22 at 1842 by ARNOLD RIDER RT Amended: Links added.
--- NOTE | 2022-07-27 18:30 | NUR ---
END OF SHIFT SUMMARY PATIENT IS A/O TO SELF. NON VERBAL. MORPHINE 5 MG IVP GIVEN ONCE. STARTED ON MORPHINE DRIP 10 MG/HR AT 1700. TITRATE MAX TO 15 MG/HR. OFF OF VENTILATOR AT 1805. PLACED ON 1 LPM. BED IN LOWEST POSITION, BRAKES LOCKED. SIDE RAILS UP X2. WILL ENDORSE CONTINUITY OF CARE TO ONCOMING SHIFT. FAMILY AT BEDSIDE.
--- NOTE | 2022-07-27 19:30 | NUR ---
noc rn opening note Received patient in bed, obtunded, eyes open. no s/s of apparent distress on 1lpm T-piece. Patient not exhibiting pain via flacc. rr-24 at this time. Parents at bedside. R. Femoral IV access running Morphine drip 10mls/hr at this time. Will continue with comfort care.
[2022-07-27 20:00] VITALS: BP 133/83
--- NOTE | 2022-07-27 20:14 | NUR ---
noc rn note Patient's eye balls we're observed shaking. Given ativan 2mg as ordered PRN for Comfort.
--- NOTE | 2022-07-27 20:50 | NUR ---
noc rn note Dr. Ybarra ordered for Morphine drip to be titrated max to 25mg and Ativan 2mg to be q1 PRN. order carried out.
[2022-07-27] MEDS ORDERED: MORPHINE SULFATE PF DRIP 250 MG in IV D5W 240 ML IV PRN ×4 (22:01)
--- NOTE | 2022-07-27 22:22 | NUR ---
noc rn note 100ml bag of Morphine replaced with 250ml bag due @2200. Rate maintained @10mls/hr, patient not in any distress. RR 10 bpm. Pam CHADWICK witnessed with me. 50ml was wasted in proper disposal bin. Dickens returned in omnicell. Red paper signed and witness with FARRUKH Orozco. will continue to monitor patient.
--- NOTE | 2022-07-27 23:18 | NUR ---
noc rn note Patient HR going up, but patient is not in any apparent distress. Given Ativan 2mg as ordered PRN.
--- NOTE | 2022-07-27 23:30 | NUR ---
noc rn note Patient has fever of 101.3. Started on cooling measures. Will monitor. Patient not in any apparent respiratory distress.
--- NOTE | 2022-07-28 00:28 | NUR ---
noc rn note temp went down to 98.3. will continue to monitor.
--- NOTE | 2022-07-28 01:06 | NUR ---
NOC RN NOTE-- PROBABLE OMNICELL DISCREPANCY I thought the Ativan that I administered @2007 did not register as administered hence I manually administered it, but actually it was administered and the order was discontinued for Ativan 2mg q2hr-- Changed to Ativan 2mg q1hr. Hence I had to undo the action. Notes in file for administration.
--- NOTE | 2022-07-28 03:14 | NUR ---
noc rn note Morphine titrated to 12ml/hr with charge nurse, Adrienne to witness. RR 4 bpm, HR- 132. will continue to monitor.
--- NOTE | 2022-07-28 06:49 | NUR ---
noc rn note Morphine drip titrated to 14 mls/hr. HR still 130 bpm.
--- NOTE | 2022-07-28 06:56 | NUR ---
noc rn closing note Patient in bed with eyes closed, arousable to stimuli. parents at bedside the whole shift. not exhibiting apparent distress, RR 4 breaths per minute. Not exhibiting pain nor discomfort. Morphine drip running @14mls/hr. all needs attended. all orders carried out. patient Fever managed with ice packs. will endorse to morning shift rn for continuity of care.
[2022-07-28 07:00] VITALS: BP 108/72
--- NOTE | 2022-07-28 08:06 | NUR ---
MS RN OPENING NOTES; RECEIVED PT ASLEEP, RESPONDS TO TACTILE STIMULI, FAMILY AT BEDSIDE. HR= 5/MIN AT THIS TIME. ON O2 AT 1L/MIN VIA T PIECE. NO S/S OF DISTRESS, NO SIGNS OF PAIN VIA FLACC AT THIS TIME. IV ACCESS AT R FEMORAL VEIN RUNNING MORPHINE DRIP AT 14ML/HR. PT APPEARS COMFORTABLE, WILL CONT WITH PLAN OF CARE DURING SHIFT.
[2022-07-28] MEDS: LORAZEPAM INJ 2 MG/ML VIAL IV PRN ×9 (08:35→23:07)
--- NOTE | 2022-07-28 08:35 | NUR ---
RN NOTES: IV ATIVAN ADMINISTERED, HR= 132, RR= 5 PT DOES NOT APPEAR TO BE IN DISTRESS, WILL CONT TO MONITOR, CODE OFFICIAL AWARE OF PT'S VITALS
--- NOTE | 2022-07-28 09:00 | NUR ---
RN NOTES; PT'S MORPHINE DRIP INCREASED TO 18ML/HR. Addendum: 07/28/22 at 1226 by VITOR FOURNIER RN CORRECTION INCREASED TO 16ML/HR
--- NOTE | 2022-07-28 09:56 | NUR ---
RN NOTES: IV ATIVAN ADMINISTERED, HR= 143, RR= 5 PT DOES NOT APPEAR TO BE IN DISTRESS, WILL CONT TO MONITOR, ASSISTANT PARALEGAL AWARE OF PT'S VITALS INCREASED MORPHINE DRIP TO 18ML/HR
--- NOTE | 2022-07-28 11:32 | NUR ---
RN NOTES: IV ATIVAN ADMINISTERED, HR= 150, RR= 5 PT DOES NOT APPEAR TO BE IN DISTRESS, WILL CONT TO MONITOR, EXTRUDER OPERATOR VERTICAL AND MD AWARE OF PT'S VITALS MORPHINE DRIP INCREASED TO 20ML/HR
[2022-07-28] MEDS: METOPROLOL TARTRATE INJ 5 MG/5 ML AMPUL IVP SCH ×2 (14:02→19:39)
--- NOTE | 2022-07-28 14:03 | NUR ---
RN NOTES: IV ATIVAN ADMINISTERED, HR= 142, RR= 5 PT DOES NOT APPEAR TO BE IN DISTRESS, WILL CONT TO MONITOR, MAJOR LEAGUE BASEBALL UMPIRE AND MD AWARE OF PT'S VITALS MORPHINE DRIP INCREASED TO 22ML/HR
[2022-07-28 16:00] VITALS: BP 114/71
--- NOTE | 2022-07-28 16:18 | NUR ---
NURSE'S NOTES: IV ATIVAN ADMINISTERED, HR= 132, RR= 8 PT DOES NOT APPEAR TO BE IN DISTRESS, WILL CONT TO MONITOR, PRINCIPAL PRODUCT MANAGER AND MD AWARE OF PT'S VITALS MORPHINE DRIP REMAINED AT 22ML/HR
[2022-07-28] MEDS ORDERED: KEY,NONCONTROL,TO KEEP IN PYXI 1 EA MC ONE ×2 (16:29→21:04)
--- NOTE | 2022-07-28 16:30 | NUR ---
RN NOTES: WASTED NARCOTICS WITH ANOTHER RN WITNESS WASTED MORPHINE = 20CC, DISCARDED PER UNIT PROTOCOL
[2022-07-28] MEDS ORDERED: MORPHINE SULFATE PF DRIP 100 MG in IV D5W 96 ML IV PRN ×2 (17:00→21:00)
--- NOTE | 2022-07-28 19:30 | NUR ---
noc rn opening note Received patient in bed, obtunded, with eyes closed. no s/s of apparent distress on 3lpm T-piece. Patient not exhibiting pain via flacc. Parents at bedside. R. Femoral IV access running Morphine drip 22mls/hr at this time. Will continue with comfort care.
--- NOTE | 2022-07-28 19:36 | NUR ---
MS RN CLOSING NOTES; PT ASLEEP, RESPONDS TO TACTILE STIMULI, FAMILY AT BEDSIDE. HR= 10/MIN AT THIS TIME. ON O2 AT 3L/MIN VIA T PIECE. NO S/S OF DISTRESS, NO SIGNS OF PAIN VIA FLACC AT THIS TIME. IV ACCESS AT R FEMORAL VEIN RUNNING MORPHINE DRIP AT 22ML/HR. ATIVAN GIVEN ORDERED; COMFORT MEASURES PROVIDED, ENDORSED TO PM SHIFT.
--- NOTE | 2022-07-28 19:39 | NUR ---
noc rn note scheduled 1999 Lopressor given early d/t heart rate of patient in the 140's. will monitor.
[2022-07-28 20:00] VITALS: BP 122/71
--- NOTE | 2022-07-28 21:43 | NUR ---
noc rn note patient heart rate up and mom request for ativan for patient. Given 2mg of Ativan at this time for comfort measures.
--- NOTE | 2022-07-28 23:07 | NUR ---
noc rn note patient heart rate going up again in the 140's and mom request for ativan for patient. Given 2mg of Ativan at this time for comfort measures.
[2022-07-29] MEDS: MORPHINE SULFATE PF DRIP 250 MG in IV D5W 240 ML IV PRN ×4 (00:59→21:42)
[2022-07-29] MEDS ORDERED: KEY,NONCONTROL,TO KEEP IN PYXI 1 EA MC ONE ×3 (01:00→21:40)
--- NOTE | 2022-07-29 01:09 | NUR ---
noc rn note PROBABLE DISCREPANCY the 2300 morphine hanged late because I had an admission and forgot the time. Charge nurse Adrienne made aware. per charge nurse just scan it late. 2300 bag hanged at around 0106, witnessed by FARRUKH Soliz. The 2100 bag was wasted in proper disposal bin with FARRUKH Soliz. 25ml was wasted. paper works signed and charted. Morphine still running @22mls/hr. patient made comfortable and not in any distress. will monitor.
--- NOTE | 2022-07-29 01:15 | NUR ---
gabriella rn note boothe returned in omnicell.
[2022-07-29] MEDS: METOPROLOL TARTRATE INJ 5 MG/5 ML AMPUL IVP SCH ×3 (01:33→19:51)
--- NOTE | 2022-07-29 01:43 | NUR ---
noc rn note lopressor given 30 min early because hr was going up to 149. will monitor.
--- NOTE | 2022-07-29 06:30 | NUR ---
noc rn note Morphine Titrated up to 25mls/hr the max dose ordered with RNJosé Miguel to witness. Patient HR going up to 150's. will monitor.
--- NOTE | 2022-07-29 07:11 | NUR ---
noc rn closing all needs attended. all scheduled medications administered. will endorse to morning shift rn for continuity of care.
--- NOTE | 2022-07-29 07:25 | NUR ---
RN OPENING NOTE RECEIVED PATIENT IN BED, OBTUNDED. NO SIGNS OF ACUTE RESPIRATORY DISTRESS OR ANY SIGNS OF PAIN NOTED. REMAINS ON COMFORT MEASURE. NOTED WITH T-PIECE ON 3 LPM O2. WITH LEFT FEMORAL LINE INTACT AND PATENT, RUNNING ON MORPHINE DRIP @25 ML/HR. WILL CONTINUE TO MONITOR AND KEEP PATIENT COMFORTABLE.
[2022-07-29 08:00] VITALS: BP 107/36
[2022-07-29] MEDS: ACETAMINOPHEN 650 MG/SUPP.RECT RC PRN ×3 (09:11→23:30)
--- NOTE | 2022-07-29 09:11 | NUR ---
RN- NOTES TYLENOL 650MG SUPPOSITORY ADMINISTERED DUE TO TEMP OF 103 F.
[2022-07-29] MEDS: LORAZEPAM INJ 2 MG/ML VIAL IV PRN ×3 (10:39→15:13)
--- NOTE | 2022-07-29 10:45 | NUR ---
RN- NOTES ATIVAN 2MG/1ML IV ADMINISTERED FOR COMFORT MEASURES.
--- NOTE | 2022-07-29 11:33 | NUR ---
RN- NOTES MORPHINE DRIP BAG CHANGED. 35ML WASTE NOTED AND DISPOSED WITH COSIGN. RATE CONTINUED WITH 25ML/HR.
--- NOTE | 2022-07-29 12:24 | NUR ---
RN- NOTES ATIVAN 2MG/1ML IV ADMINISTERED FOR COMFORT MEASURES.
--- NOTE | 2022-07-29 14:00 | NUR ---
RN- NOTES METOPROLOL HELD PER MD ORDER. BP NOTED AT 71/50, PULSE 157. MD AWARE.
--- NOTE | 2022-07-29 15:13 | NUR ---
RN- NOTES ATIVAN 2MG/1ML IV ADMINISTERED FOR COMFORT MEASURES.
[2022-07-29 16:00] VITALS: BP 78/45
[2022-07-29] MEDS: ATROPINE SULFATE OPHTH SOLN 15 ML BOTTLE SL PRN (17:23)
--- NOTE | 2022-07-29 17:23 | NUR ---
RN- NOTES TYLENOL 650MG SUPPOSITORY ADMINISTERED DUE TO PATIENT TEMP OF 102.0 F. ATROPINE 2 DROPS ADMINISTERED DUE TO INCREASED SECRETIONS.
--- NOTE | 2022-07-29 18:44 | NUR ---
RN CLOSING NOTE PATIENT REMAINS OBTUNDED. NOTED WITH AGONAL BREATHING AT 13 BREATHS PER MINUTE. CONTINUE ON COMFORT MEASURE. NO S/SX OF PAIN NOTED. MORPHINE DRIP @25MG/HR INFUSING WELL ON RIGHT FEMORAL LINE. REMAINS ON O2 @3LPM VIA T-PIECE. PATIENT REMAINS TACHYCARDIC. MD AWARE. PRN ATIVAN GIVEN ORDERED FOR COMFORT. FAMILY REMAINS AT BEDSIDE. WILL ENDORSE TO NEXT SHIFT FOR CONTINUITY OF CARE.
--- NOTE | 2022-07-29 19:30 | NUR ---
noc rn opening note Received patient in bed with eyes closed, unarousable. on 3lpm T-piece, rr-7 breaths per minute. Patient not exhibiting any discomfort. Parents at bedside. R. Femoral IV access running Morphine drip 25mls/hr at this time. Will continue with comfort care.
[2022-07-29 20:00] VITALS: BP 92/52
--- NOTE | 2022-07-29 22:07 | NUR ---
noc rn note 2142 bag of morphine hanged at 2141 with RNLuis A to witness. Wasted 27.5ml from the previous bag. wasted in proper disposal bin. boothe returned in omnicell. Morphine drip running @25mls/hr. will continue with comfort measures.
--- NOTE | 2022-07-29 23:30 | NUR ---
noc rn note Patient's face flaring up again. temperature 102.4. Given Tylenol sup given as ordered.
[2022-07-30] MEDS: LORAZEPAM INJ 2 MG/ML VIAL IV PRN ×4 (00:06→16:17)
--- NOTE | 2022-07-30 00:10 | NUR ---
noc rn note Patient noted heavy breathing 8 breaths per minute. Given ativan as ordered PRN.
[2022-07-30] MEDS: METOPROLOL TARTRATE INJ 5 MG/5 ML AMPUL IVP SCH ×2 (02:11→08:00)
--- NOTE | 2022-07-30 06:13 | NUR ---
noc rn closing note Patient RR 10 bpm at this time. HR- 137 and lowest it got was 115 bpm. all needs attended. no significant change since endorsement. will endorse to morning shift rn for continuity of patient care.
[2022-07-30 07:00] VITALS: BP 95/62
[2022-07-30] MEDS: MORPHINE SULFATE PF DRIP 250 MG in IV D5W 240 ML IV PRN (07:43)
[2022-07-30] MEDS ORDERED: KEY,NONCONTROL,TO KEEP IN PYXI 1 EA MC ONE ×3 (07:45→20:20)
--- NOTE | 2022-07-30 07:45 | NUR ---
MS RN OPENING NOTES Received patient in bed with eyes closed, unarousable. on 3lpm T-piece, rr-17 BPM. Patient on comfort care not exhibiting any discomfort. Patient has Right Femoral IV access with Morphine drip 25mls/hr. All safety measures in place, bed locked in the lowest position. Side rails up times 2. Bed alarm on. Will continue comfort care measures.
[2022-07-30 08:00] VITALS: BP 95/62
[2022-07-30] MEDS: ATROPINE SULFATE OPHTH SOLN 15 ML BOTTLE SL PRN (10:11)
[2022-07-30] MEDS: ACETAMINOPHEN 650 MG/SUPP.RECT RC PRN (10:32)
--- NOTE | 2022-07-30 10:32 | NUR ---
RN NOTE TYLENOL WAS GIVEN TO PATIENT FOR 101.5. COOL MEASURES APPLIED. WILL CONTINUE TO MONITOR
[2022-07-30] MEDS: MORPHINE SULFATE INJ 2 MG/ML DISP.SYRIN IV PRN ×2 (10:33→12:55)
--- NOTE | 2022-07-30 11:00 | NUR ---
RN NOTES MORPHINE DRIP WAS INCREASED TO 27 ML/HR INSTEAD OF 25 ML/HR PER DOCTORS ORDER AT BEDSIDE TO TITRATE MORPHINE DRIP UP TO 35 ML/HR. METOPROLOL 2.5 IV Q6H PER DOCTOR NOT TO LOOK AT PARAMETERS.
--- NOTE | 2022-07-30 12:55 | NUR ---
RN NOTE PATIENT STILL IN DISTRESS ATIVAN WAS GIVEN WILL CONTINUE TO MONITOR CHARGE NURSE AND DOCTOR AWARE
--- NOTE | 2022-07-30 13:24 | NUR ---
RN NOTE PATIENT STILL IN DISTRESS MORPHINE DRIP WAS INCREASED TO 29 ML/HR. CHARGE NURSE AWARE
[2022-07-30] MEDS ORDERED: MORPHINE SULFATE PF DRIP 250 MG in IV D5W 240 ML IV PRN (15:00)
[2022-07-30] MEDS ORDERED: METOPROLOL TARTRATE INJ 5 MG/5 ML AMPUL IVP PRN (18:00)
[2022-07-30] MEDS ORDERED: METOPROLOL TARTRATE INJ 5 MG/5 ML AMPUL IVP SCH (18:00)
--- NOTE | 2022-07-30 18:50 | NUR ---
RN NOTE 1800 METOPROLOL WAS NOT ADMINISTERED, PATIENT .
--- NOTE | 2022-07-30 19:45 | NUR ---
RN CLOSING NOTE PATIENT AT 1845, FAMILY IS AT BEDSIDE. CHARGE NURSE, NURSING FORM GRADER OPERATOR AND DOCTOR NAIDA WERE INFORMED. [facility] WAS CALLED, SPOKE WITH LAXMI JANE PATIENT POSSIBLY NOT CANDIDATE FOR TISSUE DONOR, CASE # [id number], ENDORSEMENT WAS GIVEN TO STERILIZER OPERATOR NURSE.
--- NOTE | 2022-07-30 20:15 | NUR ---
RN NOTE POST MORTUM CARE DONE. BODY PICKED UP BY [employer] TO [employer] AT 2046.
== END 2022-07-30 18:45 | DRG 862 ==
LOC: MED 14:13
PROVIDERS: ADMIT Legal Medicine; ATTEND Legal Medicine
PROC: 5A1935Z Respiratory Ventilation, Less than 24 Consecutive Hours (ICD-10-PCS; principal; 2022-07-26)
DX: Z51.5 Encounter for palliative care (principal); G93.1 Anoxic brain damage, not elsewhere classified; J96.10 Chronic respiratory failure, unspecified whether with hypoxia or hypercapnia; Z99.11 Dependence on respirator [ventilator] status; Z93.0 Tracheostomy status; I12.9 Hypertensive chronic kidney disease with stage 1 through stage 4 chronic kidney disease, or unspecified chronic kidney disease; N18.9 Chronic kidney disease, unspecified; G40.909 Epilepsy, unspecified, not intractable, without status epilepticus; R13.10 Dysphagia, unspecified; Z86.718 Personal history of other venous thrombosis and embolism; Z66 Do not resuscitate; Z93.1 Gastrostomy status; Z87.01 Personal history of pneumonia (recurrent); Z79.4 Long term (current) use of insulin; Z79.51 Long term (current) use of inhaled steroids; Z79.899 Other long term (current) drug therapy; L08.9 Local infection of the skin and subcutaneous tissue, unspecified
CPT/HCPCS: 31720; 94002-TC; 94003-TC; 94760-TC; 94799-TC; G0378; J2060; J2270; J2274; J3490; J7060